=== PATIENT | female | born 1950 | race Caucasian/White ===

== ENCOUNTER 2016-03-28 09:10 | Inpatient (IN) | payer OTHER ==
[~2016-03-28] VITALS: Ht 152.4 cm; Wt 107.3 kg
[~2016-03-28 09:10] MED LIST: ANT25 PO; ASPEC81 PO; ATOR-24 PO; CHOL100010 PO; CLOP1TAB15 PO; FENO145T26 PO; INSUINJ SQ; INSUINJ14 SC; ISOS30TA3 PO; LISI40TA PO; METO100T14 PO; MOME6000 NAE; MULT-506 PO; OMEG10007 PO; SNG10 PO
[2016-03-28] MEDS ORDERED: SYN137 PO (09:33)
[2016-03-28] MEDS ORDERED: ONDANSETRON 8 MG/54 ML D5W IV STA (09:46)
[2016-03-28] MEDS ORDERED: SODIUM CHLORIDE 0.9% 1000ML 500 ML IV STA (09:46)
[2016-03-28] MEDS ORDERED: PROMETHAZINE HCL INJ 6.25 MG in SODIUM CHLORIDE 0.9% 50ML 50 ML IV STA (09:46)
[2016-03-28 09:56] LABS: BASO % 0.2 %; BASO ABS # 0.03 K/uL (0-0.2); COMPLETE YES; EOS % 2.5 %; HEMATOCRIT 43.2 % (37-47); IG% 0.3 %; LYMPH % 22.5 %; LYMPH ABS # 2.88 K/uL (1.2-3.4); MEAN CELL VOLUME 92.3 fL (80-100); MEAN CORPUSCULAR HEMOGLOBIN 31.2 pg (25-34); MEAN CORPUSCULAR HGB CONC 33.8 g/dl (32-36); MEAN PLATELET VOLUME 11.3 fL (7.4-10.4); MONO % 8.2 %; NEUT % 66.3 %; PLATELET COUNT 338 K/uL (130-400); RED BLOOD COUNT 4.68 M/uL (4.2-5.4); WHITE BLOOD COUNT 12.82 K/uL (4.8-10.8)
[2016-03-28] MEDS ORDERED: MoRPHine SULFATE 4 MG/ML 1 ML CARP\\VIAL IV PRN (10:00)
[2016-03-28 10:12] LABS: BUN/CREATININE RATIO 22.6 (10-20); CALCIUM 8.8 mg/dl (8.5-10.1); CREATININE 1.3 mg/dl (0.60-1.20); POTASSIUM 4.1 mmol/L (3.5-5.1)
[2016-03-28 10:15] LABS: ALB/GLOB RATIO 0.7 (0.9-2)
--- NOTE | 2016-03-28 10:31 | DIAGNOSTIC IMAGING REPORT ---
ABDOMEN AND PELVIS CT WITHOUT CONTRAST CT DOSE: 1640.91 mGy.cm HISTORY: Flank pain EVALUATE FLANK PAIN/HEMATURIA TECHNIQUE: Multiaxial CT images of the abdomen and pelvis were performed without the use of intravenous and oral contrast according to the standard department stone protocol. COMPARISON STUDY: None. FINDINGS: Lung bases are clear. Liver spleen and pancreas are unremarkable. Gallstones are present within the gallbladder lumen. Moderate cortical scarring is seen in the kidneys bilaterally. Several nonobstructing renal calcifications are noted. There is mild perinephric infiltrative change bilaterally although slightly more prominent on the right. There is no evidence for an obstructing urinary tract calculus. Uterus is anteflexed. Bowel pattern is nonobstructive. IMPRESSION: 1. Mild perinephric infiltrative change of the right and to lesser extent left kidney. 2. This may be unremarkable for age, although can't be a secondary indication of mild pyelonephritis. 3. No evidence for an obstructing urinary tract calculus. 4. Nonobstructive bowel pattern. 5. Gallstones within the gallbladder lumen. Electronically signed by: Joe Mendenhall M.D. 03/28/2016 10:30 AM Dictated Date/Time: 03/28/2016 10:27 AM
[2016-03-28] MEDS ORDERED: CEFTRIAXONE SOD INJ 1 GM ADDVIAL IV STA (10:37)
[2016-03-28 11:12] LABS: URINE APPEARANCE CLOUDY (CLEAR); URINE BILIRUBIN NEG (NEG); URINE EPITHELIAL CELL AUTO 0-5 /lpf (0-5); URINE NITRITE POS (NEG); URINE SPECIFIC GRAVITY 1.015 (1.000-1.030); UROBILINOGEN NEG (NEG); ZZURINE CULT IF INDIC CATH YES
[2016-03-28 11:14] LABS: MANUAL MICROSCOPIC REQUIRED? NO; REVIEW REQ? NO; URINE COLOR AMBER
[2016-03-28] MEDS ORDERED: ACETAMINOPHEN 325 MG TAB PO PRN (12:00)
[2016-03-28] MEDS ORDERED: ONDANSETRON INJ 2 MG/ML 2 ML VIAL IV PRN (12:00)
--- NOTE | 2016-03-28 12:26 | History and Physical ---
History & Physical Date & Time of Service: Mar 28, 2016 at 12:15 Chief Complaint: Sharp Pain In Lower Back, Vomiting, Blood In Urine Primary Care Physician: Claudette You PA-C History of Present Illness Source: patient, family, hospital records This patient is a pleasant 66-year-old female that presents emergency department today complaining of a fairly sudden onset of right flank pain radiating to the right side of her abdomen that started last night. She also had associated nausea and vomiting. The patient also started eating blood in the middle of the night. She apparently has had urinary frequency for the last 2 weeks. She denies any dysuria. She denies any fever or chills. No changes in bowel habits. The patient was first seen at her primary care physician's office. She was sent here for evaluation. She currently says that her nausea and pain are better since she received medication in the emergency department. Workup in the emergency department included blood work and a CT scan. She has noted leukocytosis with a white blood cell count of 12,000. She also has perinephric stranding right greater than left on the CT consistent with bilateral pyelonephritis. Urinalysis confirms a UTI. The patient does have a history of coronary artery disease and [place]. She does not have any complaints of chest pain, pressure, shortness of breath or heart palpitations. Past Medical/Surgical History Medical Problems: (1) Diab Enma Wo Compl, Type Ii Or Unspec Type, Not Uncntrld Status: Chronic (2) Hypertension Nos Status: Chronic (3) Old Myocardial Infarct Status: Chronic (4) Percutaneous Translum Coron Angioplasty Status Status: Resolved 2 stents placed (5) Pure Hypercholesterolem Status: Chronic Chronic kidney disease stage III Family History Diabetes mellitus FHx: cancer FHx: gallbladder disease FHx: heart disease Hypertension Kidney disease Kidney stones Seizures Social History Smoking Status: Never Smoker Alcohol Use: none Marital Status: Housing status: lives with family Occupational Status: retired Immunizations History of Influenza Vaccine: Yes Influenza Vaccine Date: Dec 20, 2010 History of Tetanus Vaccine?: UTD History of Pneumococcal: Yes History of Hepatitis B Vaccine: No Multi-Drug Resistant Organisms History of MDRO: No Allergies Coded Allergies: Oxycodone (Verified Allergy, Mild, ITCHING ON BACK, 03/28/16) Blood-Group Specific Substance (Verified Allergy, Unknown, NO BLOOD PRODUCTS, 03/28/16) Iodinated Contrast Media (Verified Allergy, Unknown, TEARS AND FACE BECAME VERY REDDENED, 03/28/16) Diltiazem (Verified Adverse Reaction, Unknown, PAIN IN NECK, 03/28/16) Home Medications Scheduled Aspirin Enteric Coated (Ecotrin Or Generic *), 81 MG PO DAILY Atorvastatin (Lipitor), 40 MG PO DAILY Cholecalciferol (Vitamin D), 2,000 INTER.UNIT PO DAILY Clopidogrel (Plavix), 75 MG PO DAILY Fenofibrate (Tricor ), 145 MG PO HS Fish Oil (Henriette-3), 1 CAP PO QID Insulin Aspart Penfill (Novolog Penfill), UNITS SC AC Insulin Nph (Humulin-N), 50 UNITS SQ HS Isosorbide Mononitrate Ext Rel (Imdur Ext Rel), 60 MG PO QAM Levothyroxine Sodium (Levothyroxine Sodium), 137 MCG PO QAM Lisinopril (Zestril), 40 MG PO DAILY Metoprolol Tartrate (Lopressor) (Lopressor), 100 MG PO BID Montelukast (Singulair *), 10 MG PO QAM Multivitamin (Multivitamin), 1 TABLET PO DAILY Review of Systems Patient notes that she was treated for bronchitis 2 weeks ago and she finished a course of Augmentin. Otherwise,10 system review performed and negative unless noted in HPI or below Physical Exam Vital Signs Date Time Temp Pulse Resp B/P Pulse Ox O2 Delivery O2 Flow Rate FiO2 03/28/16 10:32 106 18 181/74 94 Room Air 03/28/16 09:15 36.6 120 20 185/75 95 Room Air GENERAL: 66-year-old female, in moderate discomfort,, SKIN: The skin was warm and moist HEAD: Normocephalic atraumatic. EYES: Pupils equal round and reactive to light and accommodation. Conjunctivae without injection, sclerae without icterus. Extraocular movements intact. MOUTH: Mucous membranes fairly dry. No exudate was noted on the tongue. NECK: No JVD. HEART: Regular rhythm. Systolic murmur noted. Mildly tachycardic. LUNGS: Clear to auscultation bilaterally without wheezes, rales or rhonchi. No accessory muscle use. ABDOMEN: Positive bowel sounds x 4.Soft, mild tenderness to palpation noted in the right lower quadrant without any guarding or rebound tenderness. No organomegaly appreciated. Right CVA tenderness noted. EXTREMITIES: No erythema or edema noted in the lower extremities bilaterally. No tenderness to palpation. Normal gait. Strength 5/5 throughout. NEURO: Patient was alert and oriented to person place and time. Normal sensation to touch. No focal neurological deficits. Diagnostics Laboratory Results Results Past 24 Hours Test 03/28/16 09:30 03/28/16 10:55 03/28/16 11:55 Range/Units White Blood Count 12.82 4.8-10.8 K/uL Red Blood Count 4.68 4.2-5.4 M/uL Hemoglobin 14.6 12.0-16.0 g/dL Hematocrit 43.2 37-47 % Mean Corpuscular Volume 92.3 80-100 fL Mean Corpuscular Hemoglobin 31.2 25-34 pg Mean Corpuscular Hemoglobin Concent 33.8 32-36 g/dl Platelet Count 338 130-400 K/uL Mean Platelet Volume 11.3 7.4-10.4 fL Neutrophils (%) (Auto) 66.3 % Lymphocytes (%) (Auto) 22.5 % Monocytes (%) (Auto) 8.2 % Eosinophils (%) (Auto) 2.5 % Basophils (%) (Auto) 0.2 % Neutrophils # (Auto) 8.50 1.4-6.5 K/uL Lymphocytes # (Auto) 2.88 1.2-3.4 K/uL Monocytes # (Auto) 1.05 0.11-0.59 K/uL Eosinophils # (Auto) 0.32 0-0.5 K/uL Basophils # (Auto) 0.03 0-0.2 K/uL RDW Standard Deviation 43.9 36.4-46.3 fL RDW Coefficient of Variation 13.2 11.5-14.5 % Immature Granulocyte % (Auto) 0.3 % Immature Granulocyte # (Auto) 0.04 0.00-0.02 K/uL Sodium Level 137 136-145 mmol/L Potassium Level 4.1 3.5-5.1 mmol/L Chloride Level 103 98-107 mmol/L Carbon Dioxide Level 22 21-32 mmol/L Anion Gap 12.0 3-11 mmol/L Blood Urea Nitrogen 29 7-18 mg/dl Creatinine 1.30 0.60-1.20 mg/dl Est Creatinine Clear Calc Drug Dose 45.3 ml/min Estimated GFR () 48.8 Estimated GFR (Non- 42.1 BUN/Creatinine Ratio 22.6 10-20 Random Glucose 294 70-99 mg/dl Calcium Level 8.8 8.5-10.1 mg/dl Total Bilirubin 0.5 0.2-1 mg/dl Aspartate Amino Transf (AST/SGOT) 24 15-37 U/L Alanine Aminotransferase (ALT/SGPT) 23 12-78 U/L Alkaline Phosphatase 57 45-117 U/L Total Protein 7.7 6.4-8.2 gm/dl Albumin 3.2 3.4-5.0 gm/dl Globulin 4.5 2.5-4.0 gm/dl Albumin/Globulin Ratio 0.7 0.9-2 Urine Color FLORY Urine Appearance CLOUDY CLEAR Urine pH 6.0 4.5-7.5 Urine Specific [place] 1.015 1.000-1.030 Urine Protein 1+ NEG Urine Glucose (UA) 3+ NEG Urine Ketones NEG NEG Urine Occult Blood 3+ NEG Urine Nitrite POS NEG Urine Bilirubin NEG NEG Urine Urobilinogen NEG NEG Urine Leukocyte Esterase SMALL NEG Urine WBC (Auto) >30 0-5 /hpf Urine RBC (Auto) >30 0-4 /hpf Urine Hyaline Casts (Auto) 1-5 0-5 /lpf Urine Epithelial Cells (Auto) 0-5 0-5 /lpf Urine Bacteria (Auto) 4+ NEG Microbiology Results 03/28/16 Blood Culture, Yissel Batch Pending 03/28/16 Blood Culture, Yissel Batch Pending 03/28/16 Urine Culture, Received Pending Diagnostic Radiology ABDOMEN AND PELVIS CT WITHOUT CONTRAST CT DOSE: 1640.91 mGy.cm HISTORY: Flank pain EVALUATE FLANK PAIN/HEMATURIA TECHNIQUE: Multiaxial CT images of the abdomen and pelvis were performed without the use of intravenous and oral contrast according to the standard department stone protocol. COMPARISON STUDY: None. FINDINGS: Lung bases are clear. Liver spleen and pancreas are unremarkable. Gallstones are present within the gallbladder lumen. Moderate cortical scarring is seen in the kidneys bilaterally. Several nonobstructing renal calcifications are noted. There is mild perinephric infiltrative change bilaterally although slightly more prominent on the right. There is no evidence for an obstructing urinary tract calculus. Uterus is anteflexed. Bowel pattern is nonobstructive. IMPRESSION: 1. Mild perinephric infiltrative change of the right and to lesser extent left kidney. 2. This may be unremarkable for age, although can't be a secondary indication of mild pyelonephritis. 3. No evidence for an obstructing urinary tract calculus. 4. Nonobstructive bowel pattern. 5. Gallstones within the gallbladder lumen. Electronically signed by: Joe Mendenhall M.D. 03/28/2016 10:30 AM Dictated Date/Time: 03/28/2016 10:27 AM The status of this report is Signed. Draft = Not yet reviewed or approved by Radiologist. Signed = Reviewed and approved by Radiologist. <AttendingPhy></AttendingPhy> <FamilyPhy>Claudette You PA-C</FamilyPhy> < PrimaryPhy>Claudette You PA-C</PrimaryPhy> <UnitNumber>[id number]</ UnitNumber> <VisitNumber>[id number]</VisitNumber> <PatientName>TOAN ALCANTARA< /PatientName> <DateOfBirth>1950</DateOfBirth> <Location>[facility]</Location> < ServiceDate>03/28/16</ServiceDate> <MNE>ESINDI</MNE> <OrderingPhy>Bartolome Weiss M.D.</OrderingPhy Impression Assessment and Plan 66-year-old female with a past medical history as noted above presents emergency department with right flank pain, hematuria, UTI and pyelonephritis per CT scan. Patient is septic with tachycardia and an elevated white blood cell count Pyelonephritis -Admit to telemetry -Check blood cultures, urine culture -NS @ 100 cc/hr -Check lactic acid now and in 4 hours -Monitor renal function and CBC -Morphine 2 mg IV every 4 hours as needed for pain -Zofran 4 mg every 6 hours as needed for nausea History of coronary artery disease status post CABG and stenting-no anginal sx -check EKG -Monitor on telemetry given acute illness -Continue outpatient medical management: Lipitor, Plavix, TriCor, Imdur, lisinopril, Lopressor Chronic kidney disease stage III-creatinine appears to be at baseline -IV fluids as noted above and daily monitoring of PRP Hypertension -Medical management as noted above diabetes mellitus-BSG's are elevated today. No sign of DKA. I suspect that her blood sugars will improve with IV hydration and treatment of the infection. -follow BSGs AC, HS and with meals -Continue home dose of Humulin 50 units at night -insulin sliding scale DVT prophylaxis -Lovenox 30 mg subQ daily -TEDS, SCDs CODE STATUS -LEVEL I FULL CODE Level of Care Telemetry Resuscitation Status FULL RESUSCITATION VTE Prophylaxis VTE Risk Assessment Done? Y/N: Yes Risk Level: Moderate Given or contraindicated: Enoxaparin (Lovenox)SQ, T.E.D. Stockings, SCD's Reviewed: Pt Seen/Exam by Me, [facility] Notes, Prior Records, Labs, RAD, EKG History PA Supervision Note: I interviewed and examined the patient. Discussed with EMANI Ayers and agree with findings and plan as documented in the note. Any exceptions or clarifications are listed here: Pt with dysuria, urinary frequency and urgency x 2 days, right sided flank pain , N/V, and hematuria. Here with acute pyelonephritis and sepsis. CT abd/pel w/o contrast shows absence of stones but with bilat pyelo. Lactate elevated at 2.2 since admission. Having some recurrence of right flank pain now and is improving with morphine. HPI/ROS/PMH/PSH/MEDS/ALL otherwise as per PA H&P Vitals reviewed and no longer tachycardic after IVFs, afebrile AAOx3, NAD, morbidly obese anicteric sclerae, OP clear, obese neck CTAB no wcr RRR no mgr nl S1S2 Abd obese, +BS, soft, min +TTP RLQ and right flank without guarding or rebound Ext no edema, no calf tenderness A/P: 66 yo female with acute bilateral pyelonephritis, sepsis. -Add extra ceftriaxone 1 gram now and then 2 grams daily -repeat lactate after IVFs -follow Ur cx and BCxs -tightened up her SSI as she is on high doses of insulin at home 50 units tid usually -no signs of ischemia on ECG and no clinical chest pain, but with underlying disease in setting of sepsis need to watch for ACS -BPs improved after receiving pain meds, will continue home antihypertensives Proph Lovenox Dispo Full Code Mu-ism--> Advanced Directive on chart, no blood products Documented By: Bella Araujo
[2016-03-28 13:36] VITALS: BP 124/78; PULSE 95; TEMP 36.8; O2SAT 93
[2016-03-28 13:53] LABS: INR 1.1 (0.9-1.1); PARTIAL THROMBOPLASTIN RATIO 1.1; PROTHROMBIN TIME (PATIENT) 11.5 SECONDS (9.0-12.0)
[2016-03-28] MEDS ORDERED: GLUCAGON FOR INJ 1 MG VIAL SQ PRN (14:00)
[2016-03-28] MEDS ORDERED: GLUCOSE 10 TABS/TUBE PO PRN (14:00)
[2016-03-28] MEDS ORDERED: DEXTROSE 50% 50 ML SYR IV PRN (14:00)
[2016-03-28] MEDS ORDERED: GLUCOSE 40% GEL 15 GM TUBE PO PRN (14:00)
[2016-03-28 14:07] VITALS: BP 124/78; PULSE 95; TEMP 36.8; O2SAT 93; BMI 45.2
--- NOTE | 2016-03-28 14:14 | EMERGENCY ROOM VISIT NOTE ---
History Report prepared by Julianna: Rene Berumen Under the Supervision of: Dr. Bartolome Weiss M.D. First contact with patient: 09:44 Chief Complaint: URINARY SYMPTOMS Stated Complaint: SHARP PAIN IN LOWER BACK, VOMITING, BLOOD IN URINE Nursing Triage Summary: pt is stage 3 kidney disease on antibiotics 2 weeks ago for bronchitis last pm developed severe abd pain on both sides and back blood in urine actively vomiting at triage History of Present Illness The patient is a 66 year old female with a history of Stage III chronic kidney disease who presents to the Emergency Room with complaints of persistent urinary symptoms since last night. The patient noticed urinary frequency starting last night. She also started to experience hematuria and right flank pain last night. The pain is rated 10/10 in severity. The patient complains of nausea & vomiting this morning. She denies any fevers. The patient was asymptomatic the day before yesterday. She was eating and drinking okay yesterday. The patient has a history of Stage III chronic kidney disease. She says that her creatinine levels have been okay. The patient's BSG was 254 this morning. She did not take her medications yet this morning. The patient was treated for bronchitis with antibiotics two weeks ago. Source of History: patient Onset: last night Position: other (urinary ) Quality: other (urinary symptoms) Timing: other (persistent) Associated Symptoms: + back pain (right flank), + nausea, + urinary symptoms (frequency, hematuria), + vomiting, No fevers Review of Systems See HPI for pertinent positives & negatives. A total of 10 systems reviewed and were otherwise negative. Past Medical & Surgical Medical Problems: (1) Diab Enma Wo Compl, Type Ii Or Unspec Type, Not Uncntrld (2) Hypertension Nos (3) Old Myocardial Infarct (4) Percutaneous Translum Coron Angioplasty Status (5) Pure Hypercholesterolem (6) Pyelonephritis (7) Vertigo Family History Diabetes mellitus FHx: cancer FHx: gallbladder disease FHx: heart disease Hypertension Kidney disease Kidney stones Seizures Social History Smoking Status: Never Smoker Alcohol Use: none Marital Status: Occupation Status: retired Current/Historical Medications Scheduled Aspirin Enteric Coated (Ecotrin Or Generic *), 81 MG PO DAILY Atorvastatin (Lipitor), 40 MG PO DAILY Cholecalciferol (Vitamin D), 2,000 INTER.UNIT PO DAILY Clopidogrel (Plavix), 75 MG PO DAILY Fenofibrate (Tricor ), 145 MG PO HS Fish Oil ([place]-3), 1 CAP PO QID Insulin Aspart Penfill (Novolog Penfill), UNITS SC AC Insulin Nph (Humulin-N), 50 UNITS SQ HS Isosorbide Mononitrate Ext Rel (Imdur Ext Rel), 60 MG PO QAM Levothyroxine Sodium (Levothyroxine Sodium), 137 MCG PO QAM Lisinopril (Zestril), 40 MG PO DAILY Metoprolol Tartrate (Lopressor) (Lopressor), 100 MG PO BID Montelukast (Singulair *), 10 MG PO QAM Multivitamin (Multivitamin), 1 TABLET PO DAILY Allergies Coded Allergies: Oxycodone (Verified Allergy, Mild, ITCHING ON BACK, 03/28/16) Blood-Group Specific Substance (Verified Allergy, Unknown, NO BLOOD PRODUCTS, 03/28/16) Iodinated Contrast Media (Verified Allergy, Unknown, TEARS AND FACE BECAME VERY REDDENED, 03/28/16) Diltiazem (Verified Adverse Reaction, Unknown, PAIN IN NECK, 03/28/16) Physical Exam Vital Signs Date Time Temp Pulse Resp B/P Pulse Ox O2 Delivery O2 Flow Rate FiO2 03/28/16 12:56 37.3 108 20 145/62 94 Room Air 03/28/16 11:24 105 20 157/84 97 Room Air 03/28/16 10:32 106 18 181/74 94 Room Air 03/28/16 09:15 36.6 120 20 185/75 95 Room Air Physical Exam GENERAL: Patient is in significant distress and is actively vomiting. HEENT: No acute trauma, normocephalic atraumatic, mucous membranes moist, no nasal congestion, no scleral icterus. NECK: No stridor, no adenopathy, no meningismus, trachea is midline. LUNGS: Clear to auscultation bilaterally, no wheeze, no rhonchi, breath sounds equal. HEART: Tachycardic with a regular rhythm and no murmurs. ABDOMEN: Soft, nontender, bowel sounds positive, no hernias, no peritonitis. BACK: Right flank discomfort with percussion. EXTREMITIES: No cyanosis or edema, full range of motion of all the joints without pain or difficulty, no signs for acute trauma. NEUROLOGIC: Oriented x 3, no acute motor or sensory deficits, no focal weakness. SKIN: No rash, no jaundice, no diaphoresis. Medical Decision & Procedures ER Provider Diagnostic Interpretation: CT results as stated below per my review and radiologist interpretation: ABDOMEN AND PELVIS CT WITHOUT CONTRAST CT DOSE: 1640.91 mGy.cm HISTORY: Flank pain EVALUATE FLANK PAIN/HEMATURIA TECHNIQUE: Multiaxial CT images of the abdomen and pelvis were performed without the use of intravenous and oral contrast according to the standard department stone protocol. COMPARISON STUDY: None. FINDINGS: Lung bases are clear. Liver spleen and pancreas are unremarkable. Gallstones are present within the gallbladder lumen. Moderate cortical scarring is seen in the kidneys bilaterally. Several nonobstructing renal calcifications are noted. There is mild perinephric infiltrative change bilaterally although slightly more prominent on the right. There is no evidence for an obstructing urinary tract calculus. Uterus is anteflexed. Bowel pattern is nonobstructive. IMPRESSION: 1. Mild perinephric infiltrative change of the right and to lesser extent left kidney. 2. This may be unremarkable for age, although can't be a secondary indication of mild pyelonephritis. 3. No evidence for an obstructing urinary tract calculus. 4. Nonobstructive bowel pattern. 5. Gallstones within the gallbladder lumen. Electronically signed by: Joe Mendenhall M.D. 03/28/2016 10:30 AM Dictated Date/Time: 03/28/2016 10:27 AM Laboratory Results 03/28/16 09:30 Red Blood Count 4.68, Mean Corpuscular Volume 92.3, Mean Corpuscular Hemoglobin 31.2, Mean Corpuscular Hemoglobin Concent 33.8, Mean Platelet Volume 11.3, Neutrophils (%) (Auto) 66.3, Lymphocytes (%) (Auto) 22.5, Monocytes (%) (Auto) 8.2, Eosinophils (%) (Auto) 2.5, Basophils (%) (Auto) 0.2, Neutrophils # (Auto) 8.50, Lymphocytes # (Auto) 2.88, Monocytes # (Auto) 1.05, Eosinophils # (Auto) 0.32, Basophils # (Auto) 0.03 03/28/16 09:30 Test 03/28/16 09:30 03/28/16 10:55 White Blood Count 12.82 K/uL (4.8-10.8) Red Blood Count 4.68 M/uL (4.2-5.4) Hemoglobin 14.6 g/dL (12.0-16.0) Hematocrit 43.2 % (37-47) Mean Corpuscular Volume 92.3 fL (80-100) Mean Corpuscular Hemoglobin 31.2 pg (25-34) Mean Corpuscular Hemoglobin Concent 33.8 g/dl (32-36) Platelet Count 338 K/uL (130-400) Mean Platelet Volume 11.3 fL (7.4-10.4) Neutrophils (%) (Auto) 66.3 % Lymphocytes (%) (Auto) 22.5 % Monocytes (%) (Auto) 8.2 % Eosinophils (%) (Auto) 2.5 % Basophils (%) (Auto) 0.2 % Neutrophils # (Auto) 8.50 K/uL (1.4-6.5) Lymphocytes # (Auto) 2.88 K/uL (1.2-3.4) Monocytes # (Auto) 1.05 K/uL (0.11-0.59) Eosinophils # (Auto) 0.32 K/uL (0-0.5) Basophils # (Auto) 0.03 K/uL (0-0.2) RDW Standard Deviation 43.9 fL (36.4-46.3) RDW Coefficient of Variation 13.2 % (11.5-14.5) Immature Granulocyte % (Auto) 0.3 % Immature Granulocyte # (Auto) 0.04 K/uL (0.00-0.02) Prothrombin Time 11.5 SECONDS (9.0-12.0) Prothromb Time International Ratio 1.1 (0.9-1.1) Activated Partial Thromboplast Time 28.2 SECONDS (21.0-31.0) Partial Thromboplastin Ratio 1.1 Anion Gap 12.0 mmol/L (3-11) Est Creatinine Clear Calc Drug Dose 45.3 ml/min Estimated GFR () 48.8 Estimated GFR (Non- 42.1 BUN/Creatinine Ratio 22.6 (10-20) Calcium Level 8.8 mg/dl (8.5-10.1) Total Bilirubin 0.5 mg/dl (0.2-1) Aspartate Amino Transf (AST/SGOT) 24 U/L (15-37) Alanine Aminotransferase (ALT/SGPT) 23 U/L (12-78) Alkaline Phosphatase 57 U/L (45-117) Total Protein 7.7 gm/dl (6.4-8.2) Albumin 3.2 gm/dl (3.4-5.0) Globulin 4.5 gm/dl (2.5-4.0) Albumin/Globulin Ratio 0.7 (0.9-2) Urine Color FLORY Urine Appearance CLOUDY (CLEAR) Urine pH 6.0 (4.5-7.5) Urine Specific [place] 1.015 (1.000-1.030) Urine Protein 1+ (NEG) Urine Glucose (UA) 3+ (NEG) Urine Ketones NEG (NEG) Urine Occult Blood 3+ (NEG) Urine Nitrite POS (NEG) Urine Bilirubin NEG (NEG) Urine Urobilinogen NEG (NEG) Urine Leukocyte Esterase SMALL (NEG) Urine WBC (Auto) >30 /hpf (0-5) Urine RBC (Auto) >30 /hpf (0-4) Urine Hyaline Casts (Auto) 1-5 /lpf (0-5) Urine Epithelial Cells (Auto) 0-5 /lpf (0-5) Urine Bacteria (Auto) 4+ (NEG) Laboratory results reviewed by me. Medications Administered Medications (Trade) Dose Ordered Sig/Mario Route Start Time Stop Time Status Last Admin Dose Admin Sodium Chloride (Nss 1000ml) 500 ml @ 999 mls/hr Q31M STAT IV 03/28/16 09:46 03/28/16 10:16 DC 03/28/16 09:46 999 MLS/HR Ondansetron HCl (Zofran 8mg Iv) 8 mg NOW STAT IV 03/28/16 09:46 03/28/16 09:49 DC 03/28/16 09:54 8 MG Morphine Sulfate (MoRPHine SULFATE INJ) 4 mg Q15M PRN IV 03/28/16 10:00 03/28/16 13:41 DC 03/28/16 09:54 4 MG Ceftriaxone Sodium (Rocephin Inj) 1 gm NOW STAT IV 03/28/16 10:37 03/28/16 10:38 DC 03/28/16 11:24 1 GM Ondansetron HCl 4 mg 4 mg Q6H PRN IV 03/28/16 12:00 04/27/16 11:59 03/28/16 14:42 4 MG Sodium Chloride (Nss 1000ml) 1,000 ml @ 100 mls/hr Q10H IV 03/28/16 12:00 04/27/16 11:59 03/28/16 14:42 100 MLS/HR Morphine Sulfate (MoRPHine SULFATE INJ) 2 mg Q4 PRN IV 03/28/16 12:00 04/11/16 11:59 03/28/16 15:49 2 MG ED Course 0946: The patient was evaluated in room B8. A complete history and physical exam was performed. 0946: Zofran 8 mg IV, NSS 500 ml @ 999 mls/hr. 1000: Morphine Sulfate 4 mg IV. 1037: Rocephin 1 gm IV. 1100: Updated the patient. Medicine will be paged. 1108: Spoke with Dr. Araujo [facility]. The patient will be evaluated. Medical Decision Differential diagnosis includes pyelonephritis, AAA, renal colic, UTI, kidney failure, electrolyte imbalance, bowel obstruction, pancreatitis, hepatitis. There is a mild leukocytosis which could be consistent with infection. No worrisome anemia. No significant electrolyte abnormality, kidney failure or hepatitis. Urinalysis does show infection, urine culture is pending. Abdominal and pelvis CT shows evidence for pyelonephritis, more so on the right. No renal obstruction seen. There was no coagulopathy. The patient was aggressively managed, she was quite uncomfortable. She received IV Zofran, IV morphine and IV saline, she was given IV ceftriaxone. With the above treatment, the patient does feel markedly better. The patient has pyelonephritis. I do think admission/observation is warranted given her vomiting, given her severe pain and given the fact that both kidneys appear involved by CT. She does have known renal disease. I spoke to the patient and case management. The on-call hospitalist was consulted. Consults Time Called: 1100 Consulting Physician: Dr. [facility] Returned Call: [phone]: Spoke with Dr. Araujo [facility]. The patient will be evaluated. Impression Primary Impression: Pyelonephritis Additional Impressions: Right flank pain Vomiting Scribe Attestation The scribe's documentation has been prepared under my direction and personally reviewed by me in its entirety. I confirm that the note above accurately reflects all work, treatment, procedures, and medical decision making performed by me. Departure Information Dispostion Being Evaluated By Hospitalist Referrals No Doctor, Assigned (PCP) Patient Instructions My [facility] Problem Qualifiers
[2016-03-28] MEDS: SODIUM CHLORIDE 0.9% 1000ML 1,000 ML IV SCH ×2 (14:42→20:46)
[2016-03-28 15:00] VITALS: BP 138/78; PULSE 76; TEMP 36.7; O2SAT 97
[2016-03-28] MEDS ORDERED: INSULIN ASPART 100 UNITS/ML 3 ML PEN SC ONE (15:15)
[2016-03-28] MEDS: MoRPHine SULFATE 2 MG/ML CARP IV PRN ×2 (15:49→20:51)
[2016-03-28] MEDS ORDERED: CEFTRIAXONE SOD INJ 1 GM in DEXTROSE 5% ADD-VANTAGE 50ML 50 ML IV ONE (16:00)
[2016-03-28] MEDS: INSULIN ASPART 100 UNITS/ML 3 ML PEN SC SCH ×2 (17:49→20:44)
[2016-03-28 20:14] VITALS: BP 109/48; PULSE 89; TEMP 37.1; O2SAT 94
[2016-03-28] MEDS: INSULIN HUMAN NPH SQ SCH (20:43)
[2016-03-28] MEDS: FENOFIBRATE 145 MG TAB PO SCH (20:45)
[2016-03-28] MEDS: METOPROLOL TARTRATE 100 MG TAB PO SCH (20:45)
[2016-03-28] MEDS: ENOXAPARIN 30 MG/0.3 ML SYR SC SCH (20:52)
[2016-03-28 22:51] VITALS: BP 111/57; PULSE 81; TEMP 36.8; O2SAT 96
[2016-03-29] VITALS (8 sets, daily range): BP systolic 103–143; BP diastolic 58–86; PULSE 68–78; TEMP 36.4–36.9; O2SAT 95–99; Ht 152.4 cm; Wt 107.3 kg
[2016-03-29] MEDS: LEVOTHYROXINE 137 MCG TAB PO SCH (06:43)
[2016-03-29 07:31] LABS: BASO % 0.3 %; BASO ABS # 0.03 K/uL (0-0.2); COMPLETE YES; HEMATOCRIT 36.1 % (37-47); IG% 0.4 %; LYMPH % 17.1 %; LYMPH ABS # 1.78 K/uL (1.2-3.4); MEAN CELL VOLUME 93.8 fL (80-100); MEAN CORPUSCULAR HEMOGLOBIN 30.6 pg (25-34); MEAN CORPUSCULAR HGB CONC 32.7 g/dl (32-36); NEUT % 66.2 %; PLATELET COUNT 248 K/uL (130-400); RED BLOOD COUNT 3.85 M/uL (4.2-5.4); WHITE BLOOD COUNT 10.43 K/uL (4.8-10.8)
[2016-03-29 07:59] LABS: BUN/CREATININE RATIO 22.4 (10-20); CALCIUM 7.9 mg/dl (8.5-10.1); CREATININE 1.5 mg/dl (0.60-1.20); MAGNESIUM 1.7 mg/dl (1.8-2.4); POTASSIUM 4.4 mmol/L (3.5-5.1)
[2016-03-29] MEDS: CLOPIDOGREL BISULFATE 75 MG TAB PO SCH (08:14)
[2016-03-29] MEDS: MONTELUKAST SOD 10 MG TAB PO SCH (08:14)
[2016-03-29] MEDS: LISINOPRIL 40 MG TAB PO SCH (08:14)
[2016-03-29] MEDS: ISOSORBIDE MONONITRATE 60 MG TABCR PO SCH (08:14)
[2016-03-29] MEDS: ATORVASTATIN 40 MG TAB PO SCH (08:15)
[2016-03-29] MEDS: METOPROLOL TARTRATE 100 MG TAB PO SCH ×2 (08:15→20:56)
[2016-03-29] MEDS: ASPIRIN 81 MG ECTAB PO SCH (08:16)
[2016-03-29] MEDS: CEFTRIAXONE SOD INJ 2,000 MG in DEXTROSE 5% 50ML 50 ML IV SCH (08:26)
[2016-03-29] MEDS: SODIUM CHLORIDE 0.9% 1000ML 1,000 ML IV SCH ×2 (08:27→17:58)
[2016-03-29] MEDS: INSULIN ASPART 100 UNITS/ML 3 ML PEN SC SCH ×4 (08:32→21:02)
[2016-03-29] MEDS: MAGNESIUM SULFATE 1GM / D5W 1 GM in PREMIXED IN D5W 100 ML IV SCH ×2 (11:20→12:28)
--- NOTE | 2016-03-29 13:59 | Progress Note ---
Subjective Date of Service: Mar 29, 2016. Subjective Pt evaluation today including: conversation w/ patient, conversation w/ family , physical exam, chart review, lab review feeling better back pain gone no nausea/vomiting - was able to eat well today no fevers, some chills last night, none today some hematuria Problem List Medical Problems: (1) Hyperglycemia Status: Acute (2) Right flank pain Status: Acute (3) Vomiting Status: Acute Review of Systems Constitutional: + chills, + see HPI, No fever, No sweats Abdomen: No nausea, No pain, No vomiting Female : + hematuria, No see HPI ros otherwise negative except for as above Objective Vital Signs Date Time Temp Pulse Resp B/P Pulse Ox O2 Delivery O2 Flow Rate FiO2 03/29/16 11:54 36.4 68 16 136/79 95 Room Air 03/29/16 08:30 77 109/64 03/29/16 07:26 36.7 78 16 113/66 99 Room Air 03/29/16 04:26 36.9 77 18 103/58 95 Room Air 03/29/16 04:00 Room Air 03/29/16 00:00 Room Air 03/28/16 22:51 36.8 81 20 111/57 96 Room Air 03/28/16 20:14 37.1 89 18 109/48 94 Room Air 03/28/16 20:00 Room Air 03/28/16 15:00 36.7 76 20 138/78 97 Room Air 03/28/16 14:07 36.8 95 18 124/78 93 Room Air Physical Exam General Appearance: no apparent distress Eyes: EOMI ENT: hearing grossly normal Neck: trachea midline Respiratory/Chest: no respiratory distress, no accessory muscle use Abdomen: non tender (no CVA tenderness), soft Extremities: normal range of motion 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, alert, normal mood/affect Skin: normal color, warm/dry Laboratory Results Last 24 Hours Test 03/28/16 14:06 03/28/16 15:58 03/28/16 16:05 03/28/16 20:28 Lactic Acid Level 2.2 mmol/L 1.9 mmol/L Bedside Glucose 263 mg/dl 249 mg/dl Test 03/29/16 06:50 03/29/16 07:38 03/29/16 11:33 White Blood Count 10.43 K/uL Red Blood Count 3.85 M/uL Hemoglobin 11.8 g/dL Hematocrit 36.1 % Mean Corpuscular Volume 93.8 fL Mean Corpuscular Hemoglobin 30.6 pg Mean Corpuscular Hemoglobin Concent 32.7 g/dl Platelet Count 248 K/uL Mean Platelet Volume 11.0 fL Neutrophils (%) (Auto) 66.2 % Lymphocytes (%) (Auto) 17.1 % Monocytes (%) (Auto) 12.0 % Eosinophils (%) (Auto) 4.0 % Basophils (%) (Auto) 0.3 % Neutrophils # (Auto) 6.91 K/uL Lymphocytes # (Auto) 1.78 K/uL Monocytes # (Auto) 1.25 K/uL Eosinophils # (Auto) 0.42 K/uL Basophils # (Auto) 0.03 K/uL RDW Standard Deviation 45.4 fL RDW Coefficient of Variation 13.3 % Immature Granulocyte % (Auto) 0.4 % Immature Granulocyte # (Auto) 0.04 K/uL Sodium Level 142 mmol/L Potassium Level 4.4 mmol/L Chloride Level 105 mmol/L Carbon Dioxide Level 29 mmol/L Anion Gap 8.0 mmol/L Blood Urea Nitrogen 34 mg/dl Creatinine 1.50 mg/dl Est Creatinine Clear Calc Drug Dose 39.3 ml/min Estimated GFR () 41.1 Estimated GFR (Non- 35.4 BUN/Creatinine Ratio 22.4 Random Glucose 111 mg/dl Calcium Level 7.9 mg/dl Magnesium Level 1.7 mg/dl Bedside Glucose 99 mg/dl 178 mg/dl Assessment and Plan Pyelonephritis w sepsis on admission -improving -await further growth on blood cultures (pyelo + chills- worrisome, will follow to ensure no bacteremia) -urine culture growing E Coli - can hopefully change to PO abx once sensitivities are back (and depending on blood cultures) -NS @ 100 cc/hr History of coronary artery disease status post CABG and stenting-no anginal sx -stable, continue home meds Chronic kidney disease stage III-creatinine appears to be at baseline -IV fluids as noted above and daily monitoring of PRP Hypertension -Medical management diabetes mellitus- -sugars somewhat variable but improving DVT prophylaxis -Lovenox 30 mg subQ daily -TEDS, SCDs CODE STATUS -LEVEL I FULL CODE
[2016-03-29] MEDS: ENOXAPARIN 30 MG/0.3 ML SYR SC SCH (20:54)
[2016-03-29] MEDS: FENOFIBRATE 145 MG TAB PO SCH (20:55)
[2016-03-29] MEDS: INSULIN HUMAN NPH SQ SCH (21:03)
[2016-03-30 00:07] VITALS: BP 124/66; PULSE 87; TEMP 36.7; O2SAT 94
[2016-03-30] MEDS: SODIUM CHLORIDE 0.9% 1000ML 1,000 ML IV SCH (03:58)
[2016-03-30 04:52] VITALS: BP 125/76; PULSE 74; TEMP 37.2; O2SAT 94
[2016-03-30] MEDS: LEVOTHYROXINE 137 MCG TAB PO SCH (05:13)
[2016-03-30 07:40] VITALS: BP 120/68; PULSE 73; TEMP 36.6; O2SAT 95
[2016-03-30 07:48] LABS: BASO % 0.4 %; BASO ABS # 0.03 K/uL (0-0.2); COMPLETE YES; EOS % 6.2 %; HEMATOCRIT 38.7 % (37-47); IG% 0.5 %; LYMPH % 19.3 %; LYMPH ABS # 1.61 K/uL (1.2-3.4); MEAN CELL VOLUME 94.4 fL (80-100); MEAN CORPUSCULAR HEMOGLOBIN 30.5 pg (25-34); MEAN CORPUSCULAR HGB CONC 32.3 g/dl (32-36); MEAN PLATELET VOLUME 11.2 fL (7.4-10.4); MONO % 12.6 %; PLATELET COUNT 284 K/uL (130-400); WHITE BLOOD COUNT 8.36 K/uL (4.8-10.8)
[2016-03-30 08:13] LABS: BUN/CREATININE RATIO 25.5 (10-20); CALCIUM 8.5 mg/dl (8.5-10.1); CREATININE 1.3 mg/dl (0.60-1.20); MAGNESIUM 2.4 mg/dl (1.8-2.4); POTASSIUM 4.9 mmol/L (3.5-5.1)
[2016-03-30] MEDS: INSULIN ASPART 100 UNITS/ML 3 ML PEN SC SCH (09:03)
[2016-03-30] MEDS: ASPIRIN 81 MG ECTAB PO SCH (09:04)
[2016-03-30] MEDS: ISOSORBIDE MONONITRATE 60 MG TABCR PO SCH (09:04)
[2016-03-30] MEDS: ATORVASTATIN 40 MG TAB PO SCH (09:04)
[2016-03-30] MEDS: CLOPIDOGREL BISULFATE 75 MG TAB PO SCH (09:04)
[2016-03-30] MEDS: MONTELUKAST SOD 10 MG TAB PO SCH (09:04)
[2016-03-30] MEDS: LISINOPRIL 40 MG TAB PO SCH (09:04)
[2016-03-30] MEDS: METOPROLOL TARTRATE 100 MG TAB PO SCH (09:04)
[2016-03-30] MEDS: CEFTRIAXONE SOD INJ 2,000 MG in DEXTROSE 5% 50ML 50 ML IV SCH (09:15)
[2016-03-30] MEDS ORDERED: CEFU1TAB36 PO (11:01)
--- NOTE | 2016-03-30 11:06 | Discharge Instructions ---
Discharge Instructions Admission Reason for Admission: Pyelonephritis Discharge Discharge Diagnosis / Problem: pyelonephritis (kidney infection) Discharge Goals Goal(s): Diagnostic testing, Therapeutic intervention Activity Recommendations Activity Limitations: resume your previous activity . Instructions / Follow-Up Instructions / Follow-Up pyelonephritis (kidney infection) -these kinds of infection can come on suddenly, as yours did, and up to 20% of people with kidney infections don't have much as far as urinary symptoms. fortunately you got better really quickly with antibiotics; and the bacteria growing on culture is sensitive to not only the antibiotic you were on, but multiple oral antibiotics. we'll finish treatment with cefuroxime (500mg twice a day for 10 days - next dose tonight - 03/30/16 - prescription was sent electronically to [facility] in [place]) -it might take a month or so to totally feel "good as new" - kidney infections can definitely take a while to recover from, and while the pain and urinary symptoms clear quickly, it's not at all uncommon for people to feel just a general fatigue and lethargy that can take several weeks to go away -follow up at [facility] as already scheduled Current Hospital Diet Patient's current hospital diet: Diabetes Type 2 Diet, AHA Diet (Heart Healthy) Discharge Diet Recommended Diet: AHA Diet (Heart Healthy), Diabetes Type 2 Diet Pending Studies Studies pending at discharge: no List of pending studies: your blood cultures will be in the lab for five days, but it's highly unlikely that they'll show any growth. if they surprise us with any unexpected findings, we'll call right away. the vast majority of the time, however, when someone has negative cultures at this point, there's no further growth Laboratory Results Hemoglobin A1c Test 02/10/16 06:35 Range/Units Estimated Average Glucose 169 mg/dl Hemoglobin A1c 7.5 H 4.5-5.6 % Lipid Panel Test 02/10/16 06:35 Range/Units Triglycerides Level 313 H 0-150 mg/dl Cholesterol Level 146 0-200 mg/dl HDL Cholesterol 35 mg/dl Cholesterol/HDL Ratio 4.2 LDL Cholesterol, Calculated 48 mg/dl Medical Emergencies . Who to Call and When: Medical Emergencies: If at any time you feel your situation is an emergency, please call 911 immediately. . Non-Emergent Contact Non-Emergency issues call your: Primary Care Provider . . "Provider Documentation" section prepared by Rony Chen. VTE Core Measure Inpt VTE Proph given/why not?: Enoxaparin (Lovenox)GEMA, Deng. Olivier, SCD's
[2016-03-30 11:17] VITALS: BP 120/73; PULSE 87; TEMP 36.6; O2SAT 94
[2016-03-30 11:37] VITALS: BP 120/73; PULSE 81; TEMP 36.6; O2SAT 96
--- NOTE | 2016-03-30 20:19 | Discharge Summary ---
Discharge Summary Admission Date: Mar 28, 2016 at 13:25 Discharge Date: Mar 30, 2016 Principal Diagnosis: pyelonephritis Immunizations: Have You Had Influenza Vaccine: Yes Influenza Vaccine Date: Dec 20, 2010 History of Tetanus Vaccine?: UTD History of Pneumococcal: Yes History of Hepatitis B Vaccine: No Procedures: ABDOMEN AND PELVIS CT WITHOUT CONTRAST CT DOSE: 1640.91 mGy.cm HISTORY: Flank pain EVALUATE FLANK PAIN/HEMATURIA TECHNIQUE: Multiaxial CT images of the abdomen and pelvis were performed without the use of intravenous and oral contrast according to the standard department stone protocol. COMPARISON STUDY: None. FINDINGS: Lung bases are clear. Liver spleen and pancreas are unremarkable. Gallstones are present within the gallbladder lumen. Moderate cortical scarring is seen in the kidneys bilaterally. Several nonobstructing renal calcifications are noted. There is mild perinephric infiltrative change bilaterally although slightly more prominent on the right. There is no evidence for an obstructing urinary tract calculus. Uterus is anteflexed. Bowel pattern is nonobstructive. IMPRESSION: 1. Mild perinephric infiltrative change of the right and to lesser extent left kidney. 2. This may be unremarkable for age, although can't be a secondary indication of mild pyelonephritis. 3. No evidence for an obstructing urinary tract calculus. 4. Nonobstructive bowel pattern. 5. Gallstones within the gallbladder lumen. Electronically signed by: Joe Mendenhall M.D. 03/28/2016 10:30 AM Dictated Date/Time: 03/28/2016 10:27 AM Date/Time Source Procedure Growth Status 03/28/16 14:10 Blood Blood Culture - Preliminary NO GROWTH TO DATE. Resulted 03/28/16 10:55 Urine,Catheterized Urine Culture - Final Escherichia Coli Complete E coli sensitive to cephalosporins Medication Reconciliation New Medications: Cefuroxime Axetil (Cefuroxime Axetil) 500 Mg Tab 1 TAB PO BID for 10 Days, #20 TAB Continued Medications: Aspirin Enteric Coated (Ecotrin Or Generic *) 81 Mg Ectab 81 MG PO DAILY Atorvastatin (Lipitor) 40 Mg Tab 40 MG PO DAILY, TAB Cholecalciferol (Vitamin D) 1,000 Inter.unit Tab 2000 INTER.UNIT PO DAILY, TAB Clopidogrel (Plavix) 75 Mg Tab 75 MG PO DAILY, 0 Refills Fenofibrate (Tricor ) 145 Mg Tab 145 MG PO HS, TAB Fish Oil ([place]-3) 1 Ea Cap 1 CAP PO QID, 0 Refills 1200 MG Insulin Aspart Penfill (Novolog Penfill) Inj UNITS SC AC, BTL PER SLIDING SCALE, UP TO 150 UNITS PER DAY. Insulin Nph (Humulin-N) Susp 50 UNITS SQ HS, VIAL Isosorbide Mononitrate Ext Rel (Imdur Ext Rel) 30 Mg Ertab 60 MG PO QAM, 0 Refills Levothyroxine Sodium (Levothyroxine Sodium) 137 Mcg Tab 137 MCG PO QAM Lisinopril (Zestril) 40 Mg Tab 40 MG PO DAILY, TAB Metoprolol Tartrate (Lopressor) (Lopressor) 100 Mg Tab 100 MG PO BID, 0 Refills Montelukast (Singulair *) 10 Mg Tab 10 MG PO QAM, 0 Refills Multivitamin (Multivitamin) Tab 1 TABLET PO DAILY, 0 Refills Discharge Exam Physical Exam: General Appearance: no apparent distress Eyes: EOMI ENT: hearing grossly normal Neck: trachea midline Respiratory/Chest: no respiratory distress, no accessory muscle use Extremities: normal inspection 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, alert, normal mood/affect Hospital Course Pyelonephritis w sepsis on admission -improving -blood cultures negative so far, and anticipate ongoing negative - d/w pt and will dc home -- if surprised by growth will call to arrange further care -PO abx as above History of coronary artery disease status post CABG and stenting-no anginal sx -stable, continue home meds Chronic kidney disease stage III-creatinine appears to be at baseline Hypertension -Medical management diabetes mellitus- -sugars somewhat variable - outpt f/u DVT prophylaxis -Lovenox 30 mg subQ daily utilized during stay stable for discharge to home Total Time Spent: Less than 30 minutes This includes examination of the patient, discharge planning, medication reconciliation, and communication with other providers. Discharge Instructions Please refer to the electronic Patient Visit Report (Discharge Instructions) for additional information.
[2016-05-20] MEDS ORDERED: INSHNI SC (14:50)
[2016-05-20] MEDS ORDERED: CMD5 PO (14:50)
[2016-05-20] MEDS ORDERED: ENOX120I SQ (14:53)
== END 2016-03-30 11:45 | disposition home or self-care (01) | DRG 872 ==
LOC: ENRESERVTM → ENRESERVDT → C.EDB 09:13 → C.MED 13:25
PROVIDERS: ADMIT Family Medicine; ATTEND Family Medicine
DX: A41.9 Sepsis, unspecified organism (principal); N10 Acute pyelonephritis; N18.3 Chronic kidney disease, stage 3 (moderate); E11.65 Type 2 diabetes mellitus with hyperglycemia; I12.9 Hypertensive chronic kidney disease with stage 1 through stage 4 chronic kidney disease, or unspecified chronic kidney disease; E11.21 Type 2 diabetes mellitus with diabetic nephropathy; I25.2 Old myocardial infarction; E78.00 Pure hypercholesterolemia, unspecified; Z79.82 Long term (current) use of aspirin; I25.10 Atherosclerotic heart disease of native coronary artery without angina pectoris; Z83.3 Family history of diabetes mellitus; Z95.5 Presence of coronary angioplasty implant and graft; Z95.1 Presence of aortocoronary bypass graft

== ENCOUNTER 2016-05-18 08:04 | Inpatient (IN) | payer OTHER ==
[~2016-05-18] VITALS: Ht 152.4 cm; Wt 105.4 kg
[~2016-05-18 08:04] MED LIST changes: -ANT25 PO; -MOME6000 NAE; +SYN137 PO
[2016-05-18] MEDS ORDERED: METOPROLOL TARTRATE 1 MG/ML VIAL IV STA ×3 (08:25→09:50)
--- NOTE | 2016-05-18 08:32 | EMERGENCY ROOM VISIT NOTE ---
History Report prepared by Julianna: Martha Tovar Under the Supervision of: Dr. April Martin D.O. First contact with patient: 08:12 Chief Complaint: CARDIAC ASSESSMENT Stated Complaint: PALIPTATIONS History of Present Illness The patient is a 66 year old female who presents to the Emergency Room with complaints of persistent dizziness that began about 3 hours ago. Her symptoms began when she woke up and walked to the bathroom. She also felt her heart beating fast and had some shortness of breath. She has not felt similar symptoms in the past. She had vertigo in the past but her dizziness today did not feel like vertigo. The patient reports that she has been trying to keep hydrated although she did not drink any water this morning. Past medical history includes DE, hypertension, high cholesterol, and insulin dependent diabetes. She had a CABG and 2 stents placed in 2004. She has been told that she has an irregular heart rhythm, most recently when she was admitted in March 2016 for a kidney infection. She follows with Dr. Rudolph [facility] and had her cholesterol mediation increased during her most recent appointment. There is a family history of diabetes and heart disease. Her brothers had heart attacks at young ages. Denies chest pain, nausea, sweating, or other complaints. She has not taken any of her medications this morning. She is on Plavix. Source of History: patient Onset: 3 hours ago Position: other (global) Quality: other (dizzy) Timing: other (persistent) Associated Symptoms: + SOB, No chest pain, No nausea Note: Other symptoms: racing heart rate Review of Systems See HPI for pertinent positives & negatives. A total of 10 systems reviewed and were otherwise negative. Past Medical & Surgical Medical Problems: (1) Diab Enma Wo Compl, Type Ii Or Unspec Type, Not Uncntrld (2) Hypertension Nos (3) Old Myocardial Infarct (4) Percutaneous Translum Coron Angioplasty Status (5) Pure Hypercholesterolem (6) Pyelonephritis (7) Tachycardia (8) Vertigo Family History Diabetes mellitus FHx: cancer FHx: gallbladder disease FHx: heart disease Hypertension Kidney disease Kidney stones Seizures Social History Smoking Status: Never Smoker Alcohol Use: none Marital Status: Occupation Status: retired Current/Historical Medications Scheduled Aspirin (Aspirin Ec), 81 MG PO DAILY Atorvastatin (Lipitor), 40 MG PO DAILY Chlorthalidone (Hygroton), 25 MG PO DAILY Cholecalciferol (Vitamin D3), 2,000 UNITS PO DAILY Clopidogrel (Plavix), 75 MG PO DAILY Fenofibrate (Tricor), 160 MG PO DAILY Fish Oil ([place]-3), 1,200 MG PO DAILY Insulin Human NPH (Humulin N), 55 UNITS SC HS Insulin Lispro (Human) (Humalog), 1 DOSE SC DIRECTED Isosorbide Mononitrate Ext Rel (Imdur Ext Rel), 60 MG PO QAM Levothyroxine Sodium (Levothyroxine Sodium), 137 MCG PO QAM Lisinopril (Zestril), 40 MG PO DAILY Metoprolol Tartrate (Lopressor) (Lopressor), 100 MG PO BID Montelukast Sodium (Montelukast Sodium), 10 MG PO DAILY Multivitamin (Multivitamin), 1 TABLET PO DAILY Allergies Coded Allergies: Oxycodone (Verified Allergy, Mild, ITCHING ON BACK, 03/28/16) Blood-Group Specific Substance (Verified Allergy, Unknown, NO BLOOD PRODUCTS, 03/28/16) Iodinated Contrast Media (Verified Allergy, Unknown, TEARS AND FACE BECAME VERY REDDENED, 03/28/16) Diltiazem (Verified Adverse Reaction, Unknown, PAIN IN NECK, 03/28/16) Physical Exam Vital Signs Date Time Temp Pulse Resp B/P Pulse Ox O2 Delivery O2 Flow Rate FiO2 05/18/16 12:32 123 16 133/85 94 Room Air 05/18/16 10:08 122 18 129/64 97 Room Air 05/18/16 10:07 123 129/64 05/18/16 09:32 137 138/81 05/18/16 09:17 123 129/106 05/18/16 09:00 103 05/18/16 08:40 127 18 153/85 95 Room Air 05/18/16 08:40 132 153/85 05/18/16 08:23 95 Room Air 05/18/16 08:13 37.0 139 20 158/103 97 Room Air Physical Exam GENERAL: The patient is a pleasant 66 year old female in no acute distress. VITALS: Afebrile, tachycardic, hypertensive, normal pulse oximetry on room air. THROAT: No pharyngeal injection, exudates, or tonsillar hypertrophy. Airway is patent. NECK: Supple, nontender, no lymphadenopathy or nuchal rigidity. THORAX : Symmetrical and nontender to palpation without deformity or palpable crepitus. LUNGS : Clear without wheezing, rhonchi, or rales HEART: Tachycardic rate and irregular rhythm ABDOMEN: obese, Soft and nontender without guarding, rigidity, or rebound tenderness. Bowel sounds are present in all 4 quadrants. There are no palpable masses or organomegaly. No CVA tenderness. Femoral pulses are symmetrical EXTREMITIES : Without deformity or point tenderness. There are no palpable cords, edema, or erythema.. NEUROLOGIC: Intact without focal deficits Skin: intact without rash Medical Decision & Procedures ER Provider Diagnostic Interpretation: Radiology results as stated below per my review and radiologist interpretation: CHEST ONE VIEW PORTABLE CLINICAL HISTORY: Shortness of breath. Tachycardia. COMPARISON STUDY: Chest radiograph April 18, 2012. FINDINGS: There are median sternotomy wires. Cardiac size is normal. There is pulmonary vascular congestion without overt pulmonary edema. No pneumothorax or pleural effusion is present. No consolidation is identified. IMPRESSION: Pulmonary vascular congestion without overt pulmonary edema. Electronically signed by: Chava Del Valle M.D. 05/18/2016 8:45 AM Dictated Date/Time: 05/18/2016 8:43 AM Laboratory Results 05/18/16 08:16 Red Blood Count 4.98, Mean Corpuscular Volume 91.6, Mean Corpuscular Hemoglobin 30.3, Mean Corpuscular Hemoglobin Concent 33.1, Mean Platelet Volume 11.3, Neutrophils (%) (Auto) 64.3, Lymphocytes (%) (Auto) 24.1, Monocytes (%) (Auto) 7.4, Eosinophils (%) (Auto) 3.4, Basophils (%) (Auto) 0.5, Neutrophils # (Auto) 5.70, Lymphocytes # (Auto) 2.14, Monocytes # (Auto) 0.66, Eosinophils # (Auto) 0.30, Basophils # (Auto) 0.04 05/18/16 08:16 Test 05/18/16 08:16 05/18/16 08:30 White Blood Count 8.87 K/uL (4.8-10.8) Red Blood Count 4.98 M/uL (4.2-5.4) Hemoglobin 15.1 g/dL (12.0-16.0) Hematocrit 45.6 % (37-47) Mean Corpuscular Volume 91.6 fL (80-100) Mean Corpuscular Hemoglobin 30.3 pg (25-34) Mean Corpuscular Hemoglobin Concent 33.1 g/dl (32-36) Platelet Count 254 K/uL (130-400) Mean Platelet Volume 11.3 fL (7.4-10.4) Neutrophils (%) (Auto) 64.3 % Lymphocytes (%) (Auto) 24.1 % Monocytes (%) (Auto) 7.4 % Eosinophils (%) (Auto) 3.4 % Basophils (%) (Auto) 0.5 % Neutrophils # (Auto) 5.70 K/uL (1.4-6.5) Lymphocytes # (Auto) 2.14 K/uL (1.2-3.4) Monocytes # (Auto) 0.66 K/uL (0.11-0.59) Eosinophils # (Auto) 0.30 K/uL (0-0.5) Basophils # (Auto) 0.04 K/uL (0-0.2) RDW Standard Deviation 44.9 fL (36.4-46.3) RDW Coefficient of Variation 13.7 % (11.5-14.5) Immature Granulocyte % (Auto) 0.3 % Immature Granulocyte # (Auto) 0.03 K/uL (0.00-0.02) Prothrombin Time 11.4 SECONDS (9.0-12.0) Prothromb Time International Ratio 1.1 (0.9-1.1) Activated Partial Thromboplast Time 27.5 SECONDS (21.0-31.0) Partial Thromboplastin Ratio 1.1 Anion Gap 8.0 mmol/L (3-11) Est Creatinine Clear Calc Drug Dose 41.6 ml/min Estimated GFR () 44.6 Estimated GFR (Non- 38.5 BUN/Creatinine Ratio 31.4 (10-20) Calcium Level 9.1 mg/dl (8.5-10.1) Magnesium Level 1.8 mg/dl (1.8-2.4) Total Creatine Kinase 68 U/L (26-192) Creatine Kinase MB 1.5 ng/ml (0.5-3.6) Creatine Kinase MB Ratio 2.2 (0-3.0) Thyroid Stimulating Hormone (TSH) 2.860 uIu/ml (0.300-4.500) Bedside Troponin I 0.000 ng/ml (0-0.045) Laboratory studies as stated above per my review. Medications Administered Medications (Trade) Dose Ordered Sig/Mario Route Start Time Stop Time Status Last Admin Dose Admin Metoprolol Tartrate (Lopressor Iv) 5 mg NOW STAT IV 05/18/16 08:25 05/18/16 08:28 DC 05/18/16 08:40 5 MG Furosemide (Lasix Inj) 40 mg NOW STAT IV 05/18/16 08:50 05/18/16 08:54 DC 05/18/16 09:18 40 MG Clopidogrel Bisulfate (plAVix TAB) 75 mg NOW ONCE PO 05/18/16 09:00 05/18/16 09:01 DC 05/18/16 09:18 75 MG Aspirin (Aspirin Chew) 81 mg NOW STAT PO 05/18/16 08:50 05/18/16 08:54 DC 05/18/16 09:18 81 MG Isosorbide Mononitrate (Imdur Ext Rel Tab) 60 mg NOW ONCE PO 05/18/16 09:00 05/18/16 09:01 DC 05/18/16 09:18 60 MG Metoprolol Tartrate (Lopressor Iv) 5 mg NOW STAT IV 05/18/16 08:57 05/18/16 08:59 DC 05/18/16 09:17 5 MG Metoprolol Tartrate (Lopressor Iv) 5 mg NOW STAT IV 05/18/16 09:50 05/18/16 09:56 DC 05/18/16 10:07 5 MG Insulin Human Regular (novoLIN-R U-100 PER UNIT) 40 units NOW STAT SC 05/18/16 09:50 05/18/16 09:56 DC 05/18/16 11:32 40 UNITS Insulin Human NPH (novoLIN-N U-100 NPH PER UNIT) 20 units TODAY@1115 SQ 05/18/16 11:15 05/18/16 11:16 DC 05/18/16 11:30 20 UNITS Heparin Sodium/ Dextrose 1 ea 1 ea Q15M N/A 05/18/16 12:00 05/18/16 15:33 DC 05/18/16 12:28 1 EA Amiodarone HCL/ Dextrose 100 ml @ 600 mls/hr 1200 IV 05/18/16 12:00 05/18/16 12:09 DC 05/18/16 12:29 600 MLS/HR Amiodarone HCL/ Dextrose (Nexterone / D5w) 200 ml @ 33.3 mls/hr Q6H1M IV 05/18/16 12:10 05/18/16 18:09 05/18/16 12:53 33.3 MLS/HR Heparin Sodium/ Dextrose (Heparin 25,000 Unit/500ml D5W) 25,000 unit STK-MED ONCE .ROUTE 05/18/16 12:27 05/18/16 12:28 DC 05/18/16 12:26 25,000 UNIT Heparin Sodium (Porcine) (Heparin Sq 5000 Unit/0.5ml) 5,000 unit STK-MED ONCE .ROUTE 05/18/16 12:27 05/18/16 12:28 DC 05/18/16 12:28 5,000 UNIT ECG Indication: other (dizzy ) Rate (beats per minute): 135 Rhythm: sinus tachycardia Findings: LAFB, PVC, RBBB, other (episodic bigeminy) Comparison ECG Date: 03/28/2016 Change: Multi-focal PVCs and bigeminy are now present; otherwise, no acute changes. Repeat EKG: Sinus tachycardia at 129 BPM, PVCs and bigeminy. ED Course 0815: Past medical records reviewed. The patient was evaluated in room A10. A complete history and physical examination was performed. On examination she was complaining of dizziness, tachycardia and dyspnea. She did not appear in any distress. She was tachycardic and appear to be an a sinus tachycardia with PVCs, episodic bigeminy. She was placed on continuous telemetry and hemodynamic monitoring established. An IV lock was established and she was medicated with 5 mg of IV Lopressor. On diagnostic testing twelve-lead ECG per my interpretation shows a sinus tachycardia with PVCs/bigeminy with associated bifascicular block. When compared to previous PVCs are now present. [id number] troponin is normal and not suggestive of ischemia. CK-MB are normal not Suggestive of Ischemia. Her Glucose Is Elevated to 244 and She Isn't in Diabetic. BUN and Creatinine Are Elevated to 44 and 1.4 and She Does Have Known Chronic Renal Disease. CBC Is Normal No Anemia. No Leukocytosis. Electrolytes are normal. Magnesium is normal. TSH is normal and not suggestive of inadequately treated hypothyroidism. Chest x-ray shows increased pulmonary congestion without overt pulmonary edema The patient has been medicated with 5 mg of Lopressor 2. She continues to be mildly tachycardic. A repeat cardiogram is been done and again to me appears to be a sinus rhythm with frequent PVCs and bigeminy. The computer interpretation however is Atrial flutter with variable block. She does have mild heart failure and has been medicated with 40 mg of IV Lasix. She is also been medicated with some of her routine morning meds including Imdur , Plavix and baby aspirin. In light of her congestive heart failure and tachyarrhythmia, Consultation has been made with Dr. Bird and the patient will be evaluated by the hospitalist for admission. I refer you to their dictation for further treatment plan. While here in the emergency room she has remained hemodynamically stable and comfortable. On reexamination :She continues with tachycardia given and additional 5 mg of IV - lopressor for a Total of 15 mg . The patient despite this therapy continues to be tachycardic. A repeat cardiogram was done and continued again to showed a tachycardia, and bigeminy. Consultation was made with Dr. King and ECG's were reviewed It is his impression that this is atrial fibrillation. He has recommended amiodarone therapy. She has been given a bolus and started on a drip. 0825: Ordered Lopressor 5 mg IV. 0850: Aspirin 81 mg PO, Lasix Inj 40 mg IV. 0855: Upon reexamination the patient is feeling better. I discussed results and treatment plan with the patient. She verbalizes agreement and understanding. The patient will be evaluated for further management. 0857: Ordered Lopressor 5 mg IV. 0900: Isosorbide Mononitrate 60 mg PO, Clopidogrel Bisulfate 75 mg PO. 0916: I discussed the case with Dr. Bird - [facility] Hospitalist. The patient will be evaluated for further management. 0950: I reassessed the patient. Ordered Insulin Human Regular 40 units SC, Lopressor 5 mg IV. 1000: Ordered Insulin Human NPH 20 units SC. 1115: Ordered Insulin Human NPH 20 units SQ. 1128: I reassessed the patient. She was still tachycardic with bigeminy on the monitor. 1137: I discussed the case with Dr. Christine [facility]. Medical Decision EMR, nurse's notes, diagnostic studies personally reviewed Differential diagnosis-see above The chart was completed utilizing [employer] Speech Voice Recognition Software. Grammatical errors, random word insertions, pronoun errors, and incomplete sentences are an occasional consequence of this system due to software limitations, ambient noise, and hardware issues. Any formal questions or concerns about the content, text, or information contained within the body of this dictation should be directly addressed to the physician for clarification. Consults Time Called: 902 Consulting Physician: Dr. Marge RIZVI Hospitalist Returned Call: [phone] I discussed the case with him. The patient will be evaluated for further management. Additional Consults: Time Called: 1127 Consulted Physician: Dr. Christine [facility] Returned Call: [phone] Additional Comments: I discussed the case with him. Impression Primary Impression: CHF (congestive heart failure) Additional Impression: New onset a-fib Critical Care I have personally spent greater than 35 minutes of critical care time in the direct management of this patient. This includes bedside care, interpretation of diagnostic studies, and testing, discussion with consultants, patient, and family members, and other required patient management activities. This 35 minutes is in excess of all separately billable procedures. Scribe Attestation The scribe's documentation has been prepared under my direction and personally reviewed by me in its entirety. I confirm that the note above accurately reflects all work, treatment, procedures, and medical decision making performed by me. Departure Information Dispostion Being Evaluated By Hospitalist Referrals Claudette You PA-C (PCP) Patient Instructions My [facility] Problem Qualifiers
[2016-05-18 08:34] LABS: BASO % 0.5 %; BASO ABS # 0.04 K/uL (0-0.2); COMPLETE YES; EOS % 3.4 %; HEMATOCRIT 45.6 % (37-47); IG% 0.3 %; LYMPH % 24.1 %; LYMPH ABS # 2.14 K/uL (1.2-3.4); MEAN CELL VOLUME 91.6 fL (80-100); MEAN CORPUSCULAR HEMOGLOBIN 30.3 pg (25-34); MEAN CORPUSCULAR HGB CONC 33.1 g/dl (32-36); MEAN PLATELET VOLUME 11.3 fL (7.4-10.4); MONO % 7.4 %; NEUT % 64.3 %; PLATELET COUNT 254 K/uL (130-400); RED BLOOD COUNT 4.98 M/uL (4.2-5.4); WHITE BLOOD COUNT 8.87 K/uL (4.8-10.8)
[2016-05-18 08:42] LABS: INR 1.1 (0.9-1.1); PARTIAL THROMBOPLASTIN RATIO 1.1; PROTHROMBIN TIME (PATIENT) 11.4 SECONDS (9.0-12.0)
[2016-05-18 08:44] LABS: BUN/CREATININE RATIO 31.4 (10-20); CALCIUM 9.1 mg/dl (8.5-10.1); CREATININE 1.4 mg/dl (0.60-1.20); MAGNESIUM 1.8 mg/dl (1.8-2.4); POTASSIUM 4.2 mmol/L (3.5-5.1)
--- NOTE | 2016-05-18 08:46 | DIAGNOSTIC IMAGING REPORT ---
CHEST ONE VIEW PORTABLE CLINICAL HISTORY: Shortness of breath. Tachycardia. COMPARISON STUDY: Chest radiograph April 18, 2012. FINDINGS: There are median sternotomy wires. Cardiac size is normal. There is pulmonary vascular congestion without overt pulmonary edema. No pneumothorax or pleural effusion is present. No consolidation is identified. IMPRESSION: Pulmonary vascular congestion without overt pulmonary edema. Electronically signed by: Chava Del Valle M.D. 05/18/2016 8:45 AM Dictated Date/Time: 05/18/2016 8:43 AM
[2016-05-18] MEDS ORDERED: FUROSEMIDE 40 MG/4 ML VIAL IV STA (08:50)
[2016-05-18] MEDS ORDERED: ASPIRIN 324 MG CHEW PO STA (08:50)
[2016-05-18 08:58] LABS: CKMB/CK RATIO 2.2 (0-3.0); THYROID STIMULATING HORMONE 2.86 uIu/ml (0.300-4.500)
[2016-05-18] MEDS ORDERED: ISOSORBIDE MONONITRATE 30 MG TABCR PO ONE (09:00)
[2016-05-18] MEDS ORDERED: CLOPIDOGREL BISULFATE 75 MG TAB PO ONE (09:00)
[2016-05-18] MEDS ORDERED: FENO160T PO (09:10)
[2016-05-18] MEDS ORDERED: INSHNI SC (09:10)
[2016-05-18] MEDS ORDERED: MONT1TAB5 PO (09:10)
[2016-05-18] MEDS ORDERED: CHOL20007 PO (09:10)
[2016-05-18] MEDS ORDERED: HYG/25 PO (09:10)
[2016-05-18] MEDS ORDERED: ASPI81TA28 PO (09:10)
[2016-05-18] MEDS ORDERED: INSU100I SC (09:10)
[2016-05-18] MEDS ORDERED: NovoLIN-R INSULIN PER UNIT CHARGE SC STA (09:50)
[2016-05-18] MEDS ORDERED: INSULIN HUMAN NPH SC SCH ×2 (10:00→21:00)
[2016-05-18] MEDS ORDERED: NovoLIN-N (NPH) PER UNIT CHARGE SQ SCH (11:15)
[2016-05-18] MEDS ORDERED: AMIODARONE IV BOLUS / DRIP IV STA (11:40)
--- NOTE | 2016-05-18 11:51 | Cardiology Consultation ---
Cardiology Consultation Date of Service May 18, 2016. Cardiology Consultation Sujata Rausch is a 66-year-old female who typically follows with Dr. Galdamez of our practice for history of coronary artery disease and mitral valve stenosis. Should most recently been seen by Dr. Galdamez on 04/19/16 as an outpatient. His note describes that she has a history of CAD with non-ST segment elevation myocardial infarction in 2004 at which time she underwent single-vessel CABG with vein graft to the LAD as well as a PCI to the circumflex coronary artery. She has severe mitral annular calcification and on her most recent echocardiogram performed a [facility] in January 2016 mild to moderate mitral stenosis was noted as well as mild pulmonary hypertension. The patient's case was discussed with Dr. Martin of the ED. patient presents to the ER today complaining of palpitations, with onset this morning. EKG reveals atrial fibrillation with rapid ventricular rate 135 bpm. Her heart rates have not improved with doses of IV metoprolol thus far. She has an apparent past intolerance of diltiazem. Given her history of mitral valve stenosis, it is not surprising for the patient to present with atrial arrhythmias and I think that a rhythm control strategy would be ideal as it is anticipated that she would not tolerate atrial fibrillation well due to loss of preload. I recommend that since her atrial fibrillation has been less than 24 hours in duration to proceed with administering IV amiodarone. She does have a past history of iodinated contrast allergy per review of her history does not appear that this was necessarily an anaphylactoid reaction to believe that it is reasonable to proceed with a trial of IV amiodarone under hospital-based supervision. Given her history of mitral stenosis she is at high risk of developing atrial arrhythmias and therefore I think we should proceed with anticoagulation without delay and therefore unfractionated heparin is also recommended. Cardiac she consultation is process. The above recommendations were offered by telephone and I will see the patient in person soon. Kristie King DO
[2016-05-18] MEDS ORDERED: AMIODARONE / D5W 100 ML IV SCH (12:00)
[2016-05-18] MEDS ORDERED: AMIODARONE / D5W 200 ML IV SCH (12:10)
[2016-05-18] MEDS ORDERED: HEPARIN SOD 5000 UNIT/0.5 ML CARP ONE (12:27)
[2016-05-18] MEDS ORDERED: HEPARIN 25000 UNIT/500 ML D5W ONE (12:27)
[2016-05-18] MEDS ORDERED: NITROGLYCERIN 0.4 MG SL PER TAB CHARGE SL PRN (12:45)
[2016-05-18] MEDS ORDERED: ZOLPIDEM TARTRATE 5 MG TAB PO PRN (12:45)
[2016-05-18] MEDS ORDERED: DEXTROSE 50% 50 ML SYR IV PRN (12:45)
[2016-05-18] MEDS ORDERED: ONDANSETRON INJ 2 MG/ML 2 ML VIAL IV PRN (12:45)
[2016-05-18] MEDS ORDERED: GLUCAGON FOR INJ 1 MG VIAL SQ PRN (12:45)
[2016-05-18] MEDS ORDERED: ACETAMINOPHEN 325 MG TAB PO PRN (12:45)
[2016-05-18] MEDS ORDERED: ALUMINUM/MAGNESIUM/SIMETH (MAALOX MAX) 30 ML UDC PO PRN (12:45)
[2016-05-18] MEDS ORDERED: POLYETHYLENE (MIRALAX) 17 GM PACK PO PRN (12:45)
[2016-05-18] MEDS ORDERED: GLUCOSE 10 TABS/TUBE PO PRN (12:45)
[2016-05-18] MEDS ORDERED: GLUCOSE 40% GEL 15 GM TUBE PO PRN (12:45)
[2016-05-18] MEDS ORDERED: PHARMACY GLYCEMIC MGMT CONSULT PRN (13:15)
[2016-05-18] MEDS ORDERED: DC ALL PREVIOUSLY ORDERED DIABETES MEDS ONE (13:15)
[2016-05-18 13:41] VITALS: BP 106/84; PULSE 135; TEMP 37; O2SAT 95; BMI 44.3
[2016-05-18] MEDS ORDERED: HEPARIN SOD 5000 UNIT/0.5 ML CARP SQ SCH (14:00)
[2016-05-18] MEDS ORDERED: HEPARIN 25,000 UNIT/500ML D5W 500 ML IV PRN (14:30)
[2016-05-18] MEDS ORDERED: HEPARIN IV BOLUS 5,000 UNIT in SYRINGE 0 ML IV ONE (14:30)
--- NOTE | 2016-05-18 15:28 | Pharmacy Progress Note ---
Glycemic Control Intl Consult Date of Service May 18, 2016. Scope Glycemic Pharmacist consulted by Dr Means on 05/18/16 for glycemic control and to write orders per [facility] inpatient glycemic control protocol Objective Weight (Kilograms): 103.000 Accuchecks BSG (last 24hrs): Test 05/18/16 08:16 Random Glucose 244 mg/dl (70-99) HbA1c Item Value Date Time Hemoglobin A1c 7.5 % H 02/10/16 0635 Recent Pertinent Medications Outpatient Anti-diabetic Regimen: * NPH 55 units SQ HS * Humalog SSI --> up to 150units/day Risk Factors for Insulin Resistance: * IVF/multiple meds mixed in dextrose * Stress * Diet Assessment & Plan ASSESSMENT: * 66yo T2DM female with adequate glycemic control on current regimen per recent A1c from January. Updated A1c pending for tomorrow with AM labs. * Pt uses up to 200 units of insulin per day per med rec * Suspect that patient may not need this much insulin while admitted d/t decreased PO intake/controlled CHO diet * Pt received NPH 20 units in ED + Regular insulin 40 units to cover meal tray in ED * Pt usually takes NPH once daily in the evening but has now received half of her home dosing this morning. * Will adjust orders accordingly. Best to split basal insulin BID for admission to prevent hypo when pt status changes. BID dosing is more easily, and quickly, titratable. * Unsure of exactly what insulin needs will be. Will utilize weight based dosing based on BSG. * ADA & AACE recommend a goal blood sugar range 140-180 mg/dl for the majority of critically ill & non-critically ill patients. However, more stringent targets may be selected in individual cases. Will utilize more stringent goal of 110-140mg/dl based on patient age, comorbidities, and tight glycemic control at baseline. PLAN FOR INPATIENT GLYCEMIC CONTROL: * Basal insulin with NPH BID - dose per BSG * If BSG 180mg/dl or below --> administer NPH 20 units * If BSG 181mg/dl or above --> administer NPH 28 units * NovoLog per scale ACHS or Q6hrs while NPO. Additional check + coverage at 0200 in the event that hyperglycemia results from decreased basal insulin dosing * Goal Range: Low 110 mg/dL - High 140 mg/dL * Correction Factor: 15 mg/dL/unit * Nutritional / Prandial insulin per carb ratio of 1 unit per 5 grams CHO consumed * Re-evaluate outpatient regimen once updated A1c available * Please note that the plan above was derived based on current level of insulin resistance and hospital stress. These recommendations are appropriate for inpatient admission only. Plan of care upon discharge will need to be reassessed to avoid potential outpatient hypo/hyperglycemia. Thank you.
[2016-05-18] MEDS ORDERED: NURSING VERBAL MED ORDER ONE (15:30)
[2016-05-18 15:42] VITALS: BP 91/66; PULSE 115; TEMP 36.9; O2SAT 95
[2016-05-18] MEDS ORDERED: METOPROLOL TARTRATE 100 MG TAB PO ONE (15:45)
[2016-05-18] MEDS ORDERED: SODIUM CHLORIDE 0.9% 1000ML 500 ML IV SCH (15:45)
[2016-05-18 15:49] VITALS: BP 93/48; PULSE 128
[2016-05-18 16:00] VITALS: O2SAT 95
--- NOTE | 2016-05-18 16:15 | Cardiology Consultation ---
Cardiology Consultation Date of Consultation: May 18, 2016 History of Present Illness Sujata Rausch is a 66 year old female seen in cardiology consultation per the request of Dr Martin for the evaluation of AF RVR. Patient reports waking up this am with generalized weakness and sensation of an irregular heart "pounding" sensation. Presenting EKG revealed AF with RVR at 135 bpm and incomplete RBBB. Patient received IV metoprolol with mild improvement in ventricular rate. After discussion with Dr Martin , I recommended that given patient's history of mild to moderate mitral stenosis, and symptomatic AF of less than 24 hours duration, and past intolerance of diltiazem would proceed with IV amiodarone infusion. Pt 's rates are mildly improved. On arrival to telemetry floor pt had transient nausea, had diarrhea, and now feels better resting in bed. BP his now lower with SBP of 90-100 mm Hg. History PAST MEDICAL HISTORY: 1. Coronary artery disease. 2. Non- ST segment elevation myocardial infarction in 2004 at which time cardiac catheterization revealed multivessel disease including high-grade left anterior descending coronary artery stenosis and stenosis in the circumflex territory. She went on to have coronary artery bypass grafting x1 with SVG to LAD at [facility] during that admission in 2004 and also had percutaneous stenting to 2 regions of the circumflex territory during that stay. 3. Obesity. 4. Type 2 diabetes mellitus. 5. Dyslipidemia. 6. Hypertension. 7. Chart history of apparent peripheral vascular disease. 8. Severe mitral annular calcification, moderate to severe mitral stenosis. PAST SURGICAL HISTORY: 1. Coronary artery bypass grafting 2004 with SVG to the LAD as well as stent placement to the circumflex as outlined above. 2. Cataract surgery. 3. Appendectomy. 4. History of section. SOCIAL HISTORY: The patient is a . 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 She is a nonsmoker. Does not take in alcoholic beverages chronically. FAMILY HISTORY: Mother of complications associated with COPD and her father of colon cancer. She has 7 brothers 5 of whom have had myocardial infarctions, 1 due to complications of [place]. Review Of Systems See above for pertinent positives & negatives. A total of 10 systems reviewed and were otherwise negative. Allergies Coded Allergies: Oxycodone (Verified Allergy, Mild, ITCHING ON BACK, 03/28/16) Blood-Group Specific Substance (Verified Allergy, Unknown, NO BLOOD PRODUCTS, 2/5/17) Iodinated Contrast Media (Verified Allergy, Unknown, TEARS AND FACE BECAME VERY REDDENED, 03/28/16) Diltiazem (Verified Adverse Reaction, Unknown, PAIN IN NECK, 03/28/16) Medications Reported Home Medications Medications Dose Route/Sig Max Daily Dose Days Date Category Dose Instructions Vitamin D3 (Cholecalciferol) 2,000 Unit Tab 2,000 Units PO DAILY 05/18/16 Reported Montelukast Sodium 10 Mg Tab 10 Mg PO DAILY 05/18/16 Reported Humulin N (Insulin Human NPH) 100 Units/Ml Susp 55 Units SC HS 05/18/16 Reported Humalog (Insulin Lispro (Human)) 100 Unit/Ml Inj 1 Dose SC DIRECTED 05/18/16 Reported PER SLIDING SCALE UP TO 150 UNITS DAILY Tricor (Fenofibrate) 160 Mg Tab 160 Mg PO DAILY 05/18/16 Reported [place] (Chlorthalidone) 25 Mg Tab 25 Mg PO DAILY 05/18/16 Reported Aspirin Ec (Aspirin) 81 Mg Tab 81 Mg PO DAILY 05/18/16 Reported Levothyroxine Sodium 137 Mcg Tab 137 Mcg PO QAM 03/28/16 Reported TAKE EVERY MORNING WITH A FULL GLASS OF WATER ON EMPTY STOMACH. WAIT 30 MINS TO EAT, DRINK OR TAKE OTHER MEDS Zestril (Lisinopril) 40 Mg Tab 40 Mg PO DAILY 05/30/13 Reported Lipitor (Atorvastatin Calcium) 40 Mg Tab 40 Mg PO DAILY 05/30/13 Reported [place]-3 (Fish Oil) 1 Ea Cap 1,200 Mg PO DAILY 11/27/10 Reported Multivitamin (Multivitamins) Tab 1 Tablet PO DAILY 08/14/08 Reported Plavix (Clopidogrel Bisulfate) 75 Mg Tab 75 Mg PO DAILY 08/14/08 Reported Imdur Ext Rel (Isosorbide Mononitrate) 30 Mg Ertab 60 Mg PO QAM 08/14/08 Reported Lopressor (Metoprolol Tartrate) 100 Mg Tab 100 Mg PO BID 08/14/08 Reported Physical Exam Vital Signs (Last 8hrs): Last 8 Hrs Date Time Temp Pulse Resp B/P Pulse Ox O2 Delivery O2 Flow Rate FiO2 05/18/16 15:49 128 93/48 05/18/16 15:42 36.9 115 20 91/66 95 Room Air 05/18/16 14:37 136 16 106/72 05/18/16 14:00 135 18 117/76 95 Room Air 05/18/16 13:41 37.0 135 18 106/84 95 Room Air 05/18/16 12:50 130 18 119/83 95 Room Air 05/18/16 12:44 145 05/18/16 12:32 123 16 133/85 94 Room Air 05/18/16 10:08 122 18 129/64 97 Room Air 05/18/16 10:07 123 129/64 05/18/16 09:32 137 138/81 05/18/16 09:17 123 129/106 05/18/16 09:00 103 05/18/16 08:40 127 18 153/85 95 Room Air 05/18/16 08:40 132 153/85 05/18/16 08:23 95 Room Air 05/18/16 08:13 37.0 139 20 158/103 97 Room Air General Appearance: Alert and Oriented x3. NAD. Head: Normocephalic Atraumatic. Eyes: PERRLA, EOMI, conjunctiva and sclera clear Neck: Supple. No carotid bruits noted. No JVD. No HJD. Respiratory: Breath sounds clear to auscultation bilaterally. No w/r/r. Cardiovascular: irregular rhythm, no murmurs. Abdomen: Normal bowel sounds, soft nontender. no abdominal bruits. Extremities: No edema, no clubbing or cyanosis. distal pulses 2/4 bilaterally. Neuro: No focal deficits. Data Last Resulted 05/18/16 08:16 Red Blood Count 4.98, Mean Corpuscular Volume 91.6, Mean Corpuscular Hemoglobin 30.3, Mean Corpuscular Hemoglobin Concent 33.1, Mean Platelet Volume 11.3, Neutrophils (%) (Auto) 64.3, Lymphocytes (%) (Auto) 24.1, Monocytes (%) (Auto) 7.4, Eosinophils (%) (Auto) 3.4, Basophils (%) (Auto) 0.5, Neutrophils # (Auto) 5.70, Lymphocytes # (Auto) 2.14, Monocytes # (Auto) 0.66, Eosinophils # (Auto) 0.30, Basophils # (Auto) 0.04 Last Resulted 05/18/16 08:16 Past 24 Hours Test 05/18/16 08:16 Range/Units Creatine Kinase MB 1.5 0.5-3.6 ng/ml Creatine Kinase MB Ratio 2.2 0-3.0 Prothromb Time International Ratio 1.1 0.9-1.1 Prothrombin Time 11.4 9.0-12.0 SECONDS Total Creatine Kinase 68 26-192 U/L EKG: as per HPI Assessment & Plan IMPRESSION: 1. AF, RVR 2. h/o Mild to Moderate mitral stenosis, MV gradient likely increased in setting of AF, RVR and resultant decreased diastolic filling time. 3. Chronic CAD. RECOMMENDATIONS: 1. continue home metoprolol dose. 2. IV amiodarone. 3. IV heparin. 4. Will hold of on repeating echocardiogram at present until rate better controlled. 5. Start coumadin. Kristie King DO
[2016-05-18] MEDS ORDERED: WARFARIN SOD 5 MG TAB PO ONE (16:30)
[2016-05-18] MEDS: INSULIN ASPART 100 UNITS/ML 3 ML PEN SC SCH ×2 (17:27→20:53)
[2016-05-18] MEDS: AMIODARONE / D5W 200 ML IV SCH (18:17)
[2016-05-18 19:12] LABS: PARTIAL THROMBOPLASTIN RATIO 4.6
[2016-05-18 19:44] VITALS: BP 105/62; PULSE 75; TEMP 36.9; O2SAT 93
--- NOTE | 2016-05-18 19:45 | History and Physical ---
History & Physical Date & Time of Service: May 18, 2016 at 19:31 Chief Complaint: Tachycardia Primary Care Physician: Claudette You PA-C History of Present Illness Source: patient Sujata Rausch is a 66 year old female with PMHx of CAD S/P CABG X1 in 2004, DMII, HTN, CKD stage 2-3 and hypothyroidism on synthroid. She was in her regular state of health until today at 5 am when she woke up to use the bathroom. she felt severe palpitation, dizziness and associated SOB. she tried to go back to sleep but symptoms persisted she denied any CP presented to ED and found to have AF with RVR at 135 bpm and incomplete RBBB. Patient received IV metoprolol with mild improvement in ventricular rate. could not give cardizem as she had reported allergy SBP of 90-100 mm Hg. typewriter assembler was consulted and initiated amiodarone drip Past Medical/Surgical History Medical Problems: (1) Diab Enma Wo Compl, Type Ii Or Unspec Type, Not Uncntrld Status: Chronic (2) Hypertension Nos Status: Chronic (3) Old Myocardial Infarct Status: Chronic (4) Percutaneous Translum Coron Angioplasty Status Status: Resolved (5) Pure Hypercholesterolem Status: Chronic Family History Diabetes mellitus FHx: cancer FHx: gallbladder disease FHx: heart disease Hypertension Kidney disease Kidney stones Seizures Social History Smoking Status: Never Smoker Marital Status: Housing status: lives with family Occupational Status: retired Immunizations History of Influenza Vaccine: Yes Influenza Vaccine Date: Dec 20, 2010 History of Tetanus Vaccine?: UTD History of Pneumococcal: Yes History of Hepatitis B Vaccine: No Multi-Drug Resistant Organisms History of MDRO: No Allergies Coded Allergies: Oxycodone (Verified Allergy, Mild, ITCHING ON BACK, 03/28/16) Blood-Group Specific Substance (Verified Allergy, Unknown, NO BLOOD PRODUCTS, 03/28/16) Iodinated Contrast Media (Verified Allergy, Unknown, TEARS AND FACE BECAME VERY REDDENED, 03/28/16) Diltiazem (Verified Adverse Reaction, Unknown, PAIN IN NECK, 03/28/16) Home Medications Scheduled Aspirin (Aspirin Ec), 81 MG PO DAILY Atorvastatin (Lipitor), 40 MG PO DAILY Chlorthalidone (Hygroton), 25 MG PO DAILY Cholecalciferol (Vitamin D3), 2,000 UNITS PO DAILY Clopidogrel (Plavix), 75 MG PO DAILY Fenofibrate (Tricor), 160 MG PO DAILY Fish Oil ([place]-3), 1,200 MG PO DAILY Insulin Human NPH (Humulin N), 55 UNITS SC HS Insulin Lispro (Human) (Humalog), 1 DOSE SC DIRECTED Isosorbide Mononitrate Ext Rel (Imdur Ext Rel), 60 MG PO QAM Levothyroxine Sodium (Levothyroxine Sodium), 137 MCG PO QAM Lisinopril (Zestril), 40 MG PO DAILY Metoprolol Tartrate (Lopressor) (Lopressor), 100 MG PO BID Montelukast Sodium (Montelukast Sodium), 10 MG PO DAILY Multivitamin (Multivitamin), 1 TABLET PO DAILY Review of Systems Constitutional: No chills, No fatigue, No fever, No problem reported, No sweats , No weakness, No weight loss Eyes: No diplopia, No discharge, No eye pain, No problem reported, No redness, No worsening of vision ENT: No dental problems, No hearing loss, No nasal symptoms, No problem reported, No sore throat, No tinnitus, No trouble swallowing, No unusual epistaxis Respiratory: No cough, No dyspnea at rest, No dyspnea on exertion, No hemoptysis, No problem reported, No shortness of breath, No sputum, No wheezing Cardiovascular: + palpitations, No PND, No chest pain, No claudication, No edema, No orthopnea, No problem reported Abdomen: No GI bleeding, No constipation, No diarrhea, No nausea, No pain, No problem reported, No vomiting Musculoskeletal: No calf pain, No joint pain, No muscle pain, No problem reported, No swelling Genitourinary - Female: No dysmenorrhea, No dysuria, No hematuria, No menorrhagia, No metrorrhagia, No , No problem reported, No rash, No urinary frequency, No urinary incontinence, No urinary retention, No urinary urgency, No vaginal bleeding, No vaginal discharge, No vaginal itching, No vulvodynia Neurologic: + vertigo, No balance problems, No memory loss, No numbness/ tingling, No paralysis, No problem reported, No weakness Psychiatric: No anhedonism, No anxiety, No depression symptoms, No insomnia, No problem reported, No substance abuse Endocrine: No excessive thirst, No excessive urination, No fatigue, No problem reported Hematologic / Lymphatic: No abnormal bleeding/bruising, No clotting problems, No night sweats, No problem reported, No swollen lymph nodes Integumentary: No bleeding, No color change, No itch, No new/changing skin lesions, No problem reported, No rash Allergic / Immunologic: No environmental allergies, No food allergies, No frequent infections, No hives, No pet sensitivities, No poor healing, No problem reported, No prolonged convalescence, No seasonal allergies Physical Exam Vital Signs Date Time Temp Pulse Resp B/P Pulse Ox O2 Delivery O2 Flow Rate FiO2 05/18/16 15:49 128 93/48 05/18/16 15:42 36.9 115 20 91/66 95 Room Air 05/18/16 14:37 136 16 106/72 05/18/16 14:00 135 18 117/76 95 Room Air 05/18/16 13:41 37.0 135 18 106/84 95 Room Air 05/18/16 12:50 130 18 119/83 95 Room Air 05/18/16 12:44 145 05/18/16 12:32 123 16 133/85 94 Room Air 05/18/16 10:08 122 18 129/64 97 Room Air 05/18/16 10:07 123 129/64 05/18/16 09:32 137 138/81 05/18/16 09:17 123 129/106 05/18/16 09:00 103 05/18/16 08:40 127 18 153/85 95 Room Air 05/18/16 08:40 132 153/85 05/18/16 08:23 95 Room Air 05/18/16 08:13 37.0 139 20 158/103 97 Room Air General Appearance: no apparent distress Head: normocephalic, atraumatic Eyes: normal inspection, EOMI ENT: normal ENT inspection, hearing grossly normal Neck: supple Respiratory/Chest: chest non-tender, lungs clear, normal breath sounds, no respiratory distress, no accessory muscle use Cardiovascular: + tachycardia, + irregularly irregular Abdomen/GI: normal bowel sounds, non tender, soft, no organomegaly, no pulsatile mass Back: normal inspection, no CVA tenderness, no muscle spasm Extremities/Musculoskelatal: normal inspection, no calf tenderness, normal capillary refill, no pedal edema Neurologic/Psych: fixture maker II-XII nml as tested, no motor/sensory deficits, alert, normal mood/affect, normal reflexes, oriented x 3 Skin: normal color, warm/dry, no rash Diagnostics Laboratory Results Results Past 24 Hours Test 05/18/16 08:16 05/18/16 08:30 05/18/16 16:07 05/18/16 18:35 Range/Units White Blood Count 8.87 4.8-10.8 K/uL Red Blood Count 4.98 4.2-5.4 M/uL Hemoglobin 15.1 12.0-16.0 g/dL Hematocrit 45.6 37-47 % Mean Corpuscular Volume 91.6 80-100 fL Mean Corpuscular Hemoglobin 30.3 25-34 pg Mean Corpuscular Hemoglobin Concent 33.1 32-36 g/dl Platelet Count 254 130-400 K/uL Mean Platelet Volume 11.3 7.4-10.4 fL Neutrophils (%) (Auto) 64.3 % Lymphocytes (%) (Auto) 24.1 % Monocytes (%) (Auto) 7.4 % Eosinophils (%) (Auto) 3.4 % Basophils (%) (Auto) 0.5 % Neutrophils # (Auto) 5.70 1.4-6.5 K/uL Lymphocytes # (Auto) 2.14 1.2-3.4 K/uL Monocytes # (Auto) 0.66 0.11-0.59 K/uL Eosinophils # (Auto) 0.30 0-0.5 K/uL Basophils # (Auto) 0.04 0-0.2 K/uL RDW Standard Deviation 44.9 36.4-46.3 fL RDW Coefficient of Variation 13.7 11.5-14.5 % Immature Granulocyte % (Auto) 0.3 % Immature Granulocyte # (Auto) 0.03 0.00-0.02 K/uL Prothrombin Time 11.4 9.0-12.0 SECONDS Prothromb Time International Ratio 1.1 0.9-1.1 Activated Partial Thromboplast Time 27.5 120.3 21.0-31.0 SECONDS Partial Thromboplastin Ratio 1.1 4.6 Sodium Level 140 136-145 mmol/L Potassium Level 4.2 3.5-5.1 mmol/L Chloride Level 104 98-107 mmol/L Carbon Dioxide Level 28 21-32 mmol/L Anion Gap 8.0 3-11 mmol/L Blood Urea Nitrogen 44 7-18 mg/dl Creatinine 1.40 0.60-1.20 mg/dl Est Creatinine Clear Calc Drug Dose 41.6 ml/min Estimated GFR () 44.6 Estimated GFR (Non- 38.5 BUN/Creatinine Ratio 31.4 10-20 Random Glucose 244 70-99 mg/dl Calcium Level 9.1 8.5-10.1 mg/dl Magnesium Level 1.8 1.8-2.4 mg/dl Total Creatine Kinase 68 26-192 U/L Creatine Kinase MB 1.5 0.5-3.6 ng/ml Creatine Kinase MB Ratio 2.2 0-3.0 Thyroid Stimulating Hormone (TSH) 2.860 0.300-4.500 uIu/ml Bedside Troponin I 0.000 0-0.045 ng/ml Bedside Glucose 153 70-90 mg/dl Impression Assessment and Plan Sujata Rausch is a 66 year old female with PMHx of CAD S/P CABG X1 in 2004, DMII, HTN, CKD stage 2-3 and hypothyroidism on synthroid. ASSESSMENT: AF, RVR continue home metoprolol dose. STARTED ON IV amiodarone. giving her high dano score she was started on heparin IV Hx of Coronary artery disease s/p CABG X1 and 2 stents Continue home metoprolol morbid Obesity / clinically suspected LILY. nocturnal study Type 2 diabetes mellitus. insulin requiring SSI Dyslipidemia. continue statin Hypertension. currently border line low pressure Advanced Directives Existing Living Will: Yes Existing Power of Inseam Trimmer: Yes VTE Prophylaxis VTE Risk Assessment Done? Y/N: Yes Risk Level: Moderate
[2016-05-18 23:48] VITALS: BP 116/51; PULSE 67; TEMP 37; O2SAT 96
[2016-05-19] VITALS (7 sets, daily range): BP systolic 104–159; BP diastolic 49–79; PULSE 58–71; TEMP 36.3–37; O2SAT 92–99; Ht 152.4 cm; Wt 105.4 kg
[2016-05-19] MEDS: FENOFIBRATE 145 MG TAB PO SCH ×2 (00:30→20:51)
[2016-05-19] MEDS: ATORVASTATIN 40 MG TAB PO SCH ×2 (00:30→20:51)
[2016-05-19] MEDS ORDERED: INSULIN ASPART 100 UNITS/ML 3 ML PEN SC SCH (02:00)
[2016-05-19 04:03] LABS: INR 1.1 (0.9-1.1); PARTIAL THROMBOPLASTIN RATIO 2.2; PROTHROMBIN TIME (PATIENT) 12.2 SECONDS (9.0-12.0)
[2016-05-19] MEDS: LEVOTHYROXINE 137 MCG TAB PO SCH (05:55)
[2016-05-19] MEDS: AMIODARONE / D5W 200 ML IV SCH (05:56)
[2016-05-19 07:15] LABS: BASO % 0.3 %; BASO ABS # 0.03 K/uL (0-0.2); COMPLETE YES; EOS % 4.6 %; HEMATOCRIT 42.4 % (37-47); IG% 0.2 %; LYMPH % 28.8 %; LYMPH ABS # 2.58 K/uL (1.2-3.4); MEAN CELL VOLUME 92.8 fL (80-100); MEAN CORPUSCULAR HEMOGLOBIN 30.9 pg (25-34); MEAN CORPUSCULAR HGB CONC 33.3 g/dl (32-36); MEAN PLATELET VOLUME 11.6 fL (7.4-10.4); MONO % 7.8 %; NEUT % 58.3 %; PLATELET COUNT 219 K/uL (130-400); RED BLOOD COUNT 4.57 M/uL (4.2-5.4); WHITE BLOOD COUNT 8.95 K/uL (4.8-10.8)
[2016-05-19 07:21] LABS: ESTIMATED AVERAGE GLUCOSE 171 mg/dl; HA1C FLAG Normal (Normal)
[2016-05-19 07:56] LABS: ALB/GLOB RATIO 0.8 (0.9-2); ALKALINE PHOSPHATASE 38 U/L (45-117); ALT/SGPT 23 U/L (12-78); BLOOD UREA NITROGEN 55 mg/dl (7-18); BUN/CREATININE RATIO 30.3 (10-20); CALCIUM 8.8 mg/dl (8.5-10.1); CARBON DIOXIDE 29 mmol/L (21-32); CHLORIDE 102 mmol/L (98-107); GLUCOSE 168 mg/dl (70-99); PHOSPHORUS 4.6 mg/dl (2.5-4.9); SODIUM 140 mmol/L (136-145)
[2016-05-19] MEDS: METOPROLOL TARTRATE 100 MG TAB PO SCH ×2 (08:51→20:52)
[2016-05-19] MEDS: ASPIRIN 81 MG ECTAB PO SCH (08:52)
[2016-05-19] MEDS: INSULIN ASPART 100 UNITS/ML 3 ML PEN SC SCH ×4 (08:59→20:55)
[2016-05-19] MEDS: INSULIN HUMAN NPH SC SCH ×2 (09:01→20:54)
[2016-05-19 09:25] LABS: MAGNESIUM 1.8 mg/dl (1.8-2.4)
[2016-05-19] MEDS ORDERED: SODIUM CHLORIDE 0.9% 500ML 500 ML IV SCH (10:00)
[2016-05-19] MEDS ORDERED: AMIODARONE 200 MG TAB PO ONE (10:04)
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
--- NOTE | 2016-05-19 12:00 | Pharmacy Progress Note ---
Glycemic Control: Progress Nt Date of Service May 19, 2016. Scope Glycemic Pharmacist consulted by Dr Means on 05/18/16 for glycemic control and to write orders per [facility] inpatient glycemic control protocol. Objective Accuchecks BSG (last 24hrs): Test 05/18/16 16:07 05/18/16 20:16 05/19/16 01:47 05/19/16 05:57 Bedside Glucose 153 mg/dl (70-90) 151 mg/dl (70-90) 163 mg/dl (70-90) 145 mg/dl (70-90) Test 05/19/16 07:03 Random Glucose 168 mg/dl (70-99) HbA1c: Test 05/19/16 07:03 Hemoglobin A1c 7.6 % (4.5-5.6) H Recent Pertinent Medications Outpatient Anti-diabetic Regimen: * NPH 55 units SQ HS * Humalog SSI --> up to 150units/day Risk Factors for Insulin Resistance: * IVF/multiple meds mixed in dextrose * Stress * Diet Assessment & Plan ASSESSMENT: * 66yo T2DM female with adequate glycemic control on current regimen per recent A1c from January & updated A1c from this morning. * Pt uses up to 200 units of insulin per day per med rec * Suspect that patient may not need this much insulin while admitted d/t decreased PO intake/controlled CHO diet * Unsure of exactly what insulin needs will be therefore initial NPH ordered were dosed per BSG to prevent over/under dosing * Pt has received ~ 87 units of insulin over the past 24hrs with adequate glycemic control * Pt usually takes NPH once daily in the evening but had received half of her home dosing in the ED 05/18 AM. Adjusted orders accordingly yesterday and split basal insulin BID for admission. This is best to prevent hypo when pt status changes. BID dosing is more easily, and quickly, titratable. * Seems reasonable to continue SQ basal bolus insulin regimen based on an estimated total daily dose of ~ 100units/day * Will work NPH dosing from BID back to HS when closer to discharge. * ADA & AACE recommend a goal blood sugar range 140-180 mg/dl for the majority of critically ill & non-critically ill patients. However, more stringent targets may be selected in individual cases. Will utilize more stringent goal of 110-140mg/dl based on patient age, comorbidities, and tight glycemic control at baseline. PLAN FOR INPATIENT GLYCEMIC CONTROL: * Basal insulin with NPH 25 units SQ BID * Will work dosing back to HS once closer to discharge * NovoLog per scale ACHS or Q6hrs while NPO * Goal Range: Low 110 mg/dL - High 140 mg/dL * Correction Factor: 15 mg/dL/unit * Nutritional / Prandial insulin per carb ratio of 1 unit per 5 grams CHO consumed Looking ahead to discharge: * A1c = 7.6% on 05/19/16; previous A1c = 7.5% in 01/2016 * Current A1c is in goal range for patient based on age/co-morbidities. * Reasonable to continue previous outpatient regimen at discharge * Please note that the plan above was derived based on current level of insulin resistance and hospital stress. These recommendations are appropriate for inpatient admission only. Plan of care upon discharge will need to be reassessed to avoid potential outpatient hypo/hyperglycemia. Thank you.
--- NOTE | 2016-05-19 13:40 | ECHOCARDIOGRAM REPORT ---
*NOTICE TO RECEIVING LIBERTARIAN AGENCY This information is strictly Confidential and protected under [place] law. [place] law prohibits you from making any further disclosure of this information unless further disclosure is expressly permitted by the written consent of the person to whom it pertains or is authorized by law. A general authorization for the release of medical or other information is not sufficient for this purpose. Hospital accepts no responsibility if the information is made available to any other person, INCLUDING THE PATIENT. Interpretation Summary * Name: TOAN ALCANTARA Study Date: 05/19/2016 08:09 AM BP: 106/49 mmHg * Patient Location: .2T\S\S239\S\2 HR: 71 * : 1950 (M/d/yyyy) Gender: Female Height: 60 in * Age: 66 yrs Ethnicity: CA Weight: 227 lb * Ordering Physician: Mike King * Referring Physician: Claudette You PA-C * Performed By: Joana Arreguin RDCS * * Reason For Study: Mitral stenosis * BSA: 2.0 m2 * The study was technically adequate. * -- Conclusions -- * The left ventricular wall motion is normal. * There is mild concentric left ventricular hypertrophy. * The LV Ejection Fraction = 65-70%. * The left atrium is moderately dilated. * There is severe mitral annular calcification. * Significant mitral regurgitation is absent. * There is mild to moderate mitral stenosis. * The mean diastolic gradient across the mitral valve= 5 mm Hg. * The calculated mitral valve area=2.1 cm 2 by the pressure half time method. * Diastolic dysfunction, Grade II (pseudonormalization pattern). * Compared to the prior study dated 05/19/16, there has been no significant interval change. Procedure Details * A complete two-dimensional transthoracic echocardiogram was performed (2D, M-mode, Doppler and color flow Doppler). Left Ventricle * The left ventricle is normal in size. * There is mild concentric left ventricular hypertrophy. * Left ventricular systolic function is normal. * Ejection Fraction = 65-70%. * The left ventricular wall motion is normal. Right Ventricle * The right ventricle is normal in size and function. Atria * The left atrium is moderately dilated. * Right atrial size is normal. * There is no evidence of atrial septal defect, but resolution does not allow assessment for a patent foramen ovale. Mitral Valve * There is severe mitral annular calcification. * There is mild to moderate mitral stenosis. * Significant mitral regurgitation is absent. Tricuspid Valve * The tricuspid valve is normal. * There is no tricuspid stenosis. * Significant tricuspid regurgitation is absent. * Doppler findings do not suggest pulmonary hypertension. Aortic Valve * The aortic valve is trileaflet. * Aortic stenosis is absent. * There is no significant aortic regurgitation. Pulmonic Valve * The pulmonary valve is not well seen, but the Doppler examination is normal without significant regurgitation or stenosis. Great Vessels * The aortic root and proximal ascending aorta are normal sized. Pericardium/Pleural * There is no pericardial effusion. Great Vessels * Normal inferior vena cava diameter and respiratory variation suggests normal central venous pressure. Left Ventricular Diastolic Function * Diastolic dysfunction, Grade II (pseudonormalization pattern). MMode 2D Measurements and Calculations IVSd 1.2 cm LVIDd 3.2 cm LVIDs 2.1 cm LVPWd 1.2 cm IVS/LVPW 1.0 FS 35.7 % EDV(Teich) 41.6 ml ESV(Teich) 13.9 ml EF(Teich) 66.6 % EDV(cubed) 33.4 ml ESV(cubed) 8.9 ml EF(cubed) 73.4 % LV mass(C)d 115.0 grams LV mass(C)dI 58.4 grams/m\S\2 SV(Teich) 27.7 ml SI(Teich) 14.0 ml/m\S\2 SV(cubed) 24.5 ml SI(cubed) 12.4 ml/m\S\2 ACS 10 cm LA dimension 3.2 cm asc Aorta Diam 2.8 cm LVAd ap4 15.7 cm\S\2 LVLd ap4 5.7 cm EDV(MOD-sp4) 36.2 ml EDV(sp4-el) 37.0 ml LVAs ap4 8.1 cm\S\2 LVLs ap4 4.9 cm ESV(MOD-sp4) 11.5 ml ESV(sp4-el) 11.2 ml EF(MOD-sp4) 68.3 % EF(sp4-el) 69.8 % LVAd ap2 18.3 cm\S\2 LVLd ap2 5.8 cm EDV(MOD-sp2) 44.8 ml EDV(sp2-el) 49.0 ml LVAs ap2 8.8 cm\S\2 LVLs ap2 4.7 cm ESV(MOD-sp2) 14.9 ml ESV(sp2-el) 14.0 ml EF(MOD-sp2) 66.8 % EF(sp2-el) 71.4 % LVLd %diff 2.0 % EDV(MOD-bp) 41.5 ml LVLs %diff -3.97 % ESV(MOD-bp) 12.7 ml EF(MOD-bp) 69.3 % SV(MOD-sp4) 24.7 ml SI(MOD-sp4) 12.6 ml/m\S\2 SV(MOD-sp2) 29.9 ml SI(MOD-sp2) 15.2 ml/m\S\2 SV(MOD-bp) 28.8 ml SI(MOD-bp) 14.6 ml/m\S\2 SV(sp4-el) 25.8 ml SI(sp4-el) 13.1 ml/m\S\2 SV(sp2-el) 35.0 ml SI(sp2-el) 17.8 ml/m\S\2 Doppler Measurements and Calculations MV E max sonam 178.2 cm/sec MV A max sonam 103.3 cm/sec MV E/A 1.7 MV V2 max 191.9 cm/sec MV max PG 14.7 mmHg MV V2 mean 100.0 cm/sec MV mean PG 4.9 mmHg MV V2 VTI 55.3 cm MV P1/2t max sonam 191.9 cm/sec MV P1/2t 102.7 msec MVA(P1/2t) 2.1 cm\S\2 MV dec slope 547.3 cm/sec\S\2 MV dec time 0.24 sec Ao V2 max 142.3 cm/sec Ao max PG 8.1 mmHg Ao max PG (full) 5.2 mmHg LV V1 max PG 3.0 mmHg LV V1 max 86.4 cm/sec PA V2 max 92.3 cm/sec PA max PG 3.4 mmHg PA acc slope 556.2 cm/sec\S\2 PA acc time 0.11 sec TR max sonam 284.5 cm/sec PA pr(Accel) 29.9 mmHg
--- NOTE | 2016-05-19 14:03 | Cardiology Progress Note ---
Cardiology Progress Note Date of Service May 19, 2016. Cardiology Progress Note Patient's echocardiogram reveals stable mild to moderate MS. Calculated mean MV gradient was 5 mm Hg, and mitral valve area=2.1 cm 2 both suggestive of mild MS. At this time will de-escalate her antiarrhythmic therapy by discontinuation of amiodarone, and continue metoprolol in an effort to avoid potential for amiodarone toxicity in this relatively young patient. It was helpful to confirm that despite her contrast allergy, she tolerated a trial of oral and IV amiodarone without allergic reaction, and therefore these agents are future options. If she has recurrent AF, would next consider sotalol. Kristie King, DO
[2016-05-19] MEDS ORDERED: WARFARIN SOD 5 MG TAB PO SCH (16:00)
--- NOTE | 2016-05-19 17:16 | Progress Note ---
Subjective Date of Service: May 19, 2016. Subjective Pt evaluation today including: conversation w/ patient, physical exam, chart review, lab review, review of inpatient medication list Problem List Medical Problems: (1) Cardiac arrhythmia Status: Acute (2) CHF (congestive heart failure) Status: Acute (3) Hyperglycemia Status: Acute (4) New onset a-fib Status: Acute (5) Right flank pain Status: Acute (6) Vomiting Status: Acute Review of Systems Constitutional: No chills, No fatigue, No fever, No problem reported, No see HPI, No sweats, No weakness, No weight loss Eyes: No diplopia, No discharge, No eye pain, No problem reported, No redness, No see HPI, No worsening of vision ENT: No dental problems, No hearing loss, No nasal symptoms, No problem reported, No see HPI, No sore throat, No tinnitus, No trouble swallowing, No unusual epistaxis Respiratory: No cough, No dyspnea at rest, No dyspnea on exertion, No hemoptysis, No problem reported, No see HPI, No shortness of breath, No sputum, No wheezing Cardiac: No PND, No chest pain, No claudication, No edema, No orthopnea, No palpitations, No problem reported, No see HPI Breast: No breast lump, No breast pain, No change in shape, No nipple discharge , No problem reported, No see HPI Abdomen: No GI bleeding, No constipation, No diarrhea, No nausea, No pain, No problem reported, No see HPI, No vomiting Musculoskeletal: No calf pain, No joint pain, No muscle pain, No problem reported, No see HPI, No swelling Female : No abnormal vaginal bleeding, No dysuria, No hematuria, No incontinence, No problem reported, No see HPI, No urinary frequency, No vaginal discharge Neurologic: No balance problems, No memory loss, No numbness/tingling, No paralysis, No problem reported, No see HPI, No vertigo, No weakness Psychiatric: No anhedonism, No anxiety, No depression symptoms, No insomnia, No problem reported, No see HPI, No substance abuse Heme: No abnormal bleeding/bruising, No clotting problems, No night sweats, No problem reported, No see HPI, No swollen lymph nodes Endo: No excessive thirst, No excessive urination, No fatigue, No problem reported, No see HPI Skin: No bleeding, No color change, No itch, No new/changing skin lesions, No problem reported, No rash, No see HPI Objective Vital Signs Date Time Temp Pulse Resp B/P Pulse Ox O2 Delivery O2 Flow Rate FiO2 05/19/16 16:00 Room Air 05/19/16 15:31 36.6 60 20 159/70 99 Room Air 05/19/16 12:43 36.5 58 20 133/75 99 Room Air 05/19/16 12:00 Room Air 05/19/16 09:15 129/79 104/67 05/19/16 08:29 36.6 69 20 127/74 96 Room Air 05/19/16 08:00 Room Air 05/19/16 04:02 Room Air 05/19/16 03:46 37.0 71 18 106/49 92 Room Air 05/19/16 01:40 Room Air 05/19/16 00:02 Room Air 05/18/16 23:48 37.0 67 18 116/51 96 Room Air 05/18/16 20:00 Room Air 05/18/16 20:00 Room Air 05/18/16 19:44 36.9 75 20 105/62 93 Room Air Physical Exam General Appearance: no apparent distress Eyes: normal inspection, EOMI ENT: normal ENT inspection, hearing grossly normal Neck: supple Respiratory/Chest: chest non-tender, lungs clear, normal breath sounds, no respiratory distress, no accessory muscle use Cardiovascular: regular rate, rhythm, no edema, no gallop, no JVD, no murmur Abdomen: normal bowel sounds, non tender, soft, no organomegaly Extremities: normal range of motion, non-tender, normal inspection, no pedal edema, no calf tenderness Neurologic/Psychiatric: portable machine cutter II-XII nml as tested, no motor/sensory deficits, alert, normal mood/affect, oriented x 3 Skin: normal color, warm/dry, no rash Lymphatic: no adenopathy Laboratory Results Last 24 Hours Test 05/18/16 18:35 05/18/16 20:16 05/19/16 01:47 05/19/16 03:00 Activated Partial Thromboplast Time 120.3 SECONDS 55.9 SECONDS Partial Thromboplastin Ratio 4.6 2.2 Bedside Glucose 151 mg/dl 163 mg/dl Prothrombin Time 12.2 SECONDS Prothromb Time International Ratio 1.1 Test 05/19/16 05:57 05/19/16 07:03 05/19/16 08:45 05/19/16 11:46 Bedside Glucose 145 mg/dl 231 mg/dl White Blood Count 8.95 K/uL Red Blood Count 4.57 M/uL Hemoglobin 14.1 g/dL Hematocrit 42.4 % Mean Corpuscular Volume 92.8 fL Mean Corpuscular Hemoglobin 30.9 pg Mean Corpuscular Hemoglobin Concent 33.3 g/dl Platelet Count 219 K/uL Mean Platelet Volume 11.6 fL Neutrophils (%) (Auto) 58.3 % Lymphocytes (%) (Auto) 28.8 % Monocytes (%) (Auto) 7.8 % Eosinophils (%) (Auto) 4.6 % Basophils (%) (Auto) 0.3 % Neutrophils # (Auto) 5.21 K/uL Lymphocytes # (Auto) 2.58 K/uL Monocytes # (Auto) 0.70 K/uL Eosinophils # (Auto) 0.41 K/uL Basophils # (Auto) 0.03 K/uL RDW Standard Deviation 47.6 fL RDW Coefficient of Variation 14.0 % Immature Granulocyte % (Auto) 0.2 % Immature Granulocyte # (Auto) 0.02 K/uL Sodium Level 140 mmol/L Potassium Level mmol/L 4.0 mmol/L Chloride Level 102 mmol/L Carbon Dioxide Level 29 mmol/L Anion Gap 9.0 mmol/L Blood Urea Nitrogen 55 mg/dl Creatinine 1.80 mg/dl Est Creatinine Clear Calc Drug Dose 32.5 ml/min Estimated GFR () 32.9 Estimated GFR (Non- 28.4 BUN/Creatinine Ratio 30.3 Random Glucose 168 mg/dl Estimated Average Glucose 171 mg/dl Hemoglobin A1c 7.6 % Calcium Level 8.8 mg/dl Phosphorus Level 4.6 mg/dl Magnesium Level mg/dl 1.8 mg/dl Total Bilirubin 0.4 mg/dl Aspartate Amino Transf (AST/SGOT) U/L 18 U/L Alanine Aminotransferase (ALT/SGPT) 23 U/L Alkaline Phosphatase 38 U/L Troponin I 0.032 ng/ml Total Protein 6.8 gm/dl Albumin 3.1 gm/dl Globulin 3.7 gm/dl Albumin/Globulin Ratio 0.8 Test 05/19/16 16:08 Bedside Glucose 146 mg/dl Assessment and Plan Sujata Rausch is a 66 year old female with PMHx of CAD S/P CABG X1 in 2004, DMII, HTN, CKD stage 2-3 and hypothyroidism on synthroid. ASSESSMENT: AF, RVR continue home metoprolol dose. STARTED ON IV amiodarone. currently rate controlled Amiodarone was stopped by slot router to avoid pulmonary toxicity currently on B norberto giving her high dano score she was started on heparin IV patient said that she likes to eat lots of green and would like a different AC, will place her on [place] and page Dr. King to inform him JAYLEN/CKD stage 2 will start some IVF hydration Hx of Coronary artery disease s/p CABG X1 and 2 stents Continue home metoprolol morbid Obesity / clinically suspected LILY. nocturnal study Type 2 diabetes mellitus. insulin requiring SSI Dyslipidemia. continue statin Hypertension. currently border line low pressure D/W Dr. King who recommended to saty on Coumadin due to valvular lesion.
[2016-05-19] MEDS: SODIUM CHLORIDE 0.9% 1000ML 1,000 ML IV SCH (18:00)
[2016-05-19] MEDS: WARFARIN SOD 5 MG TAB PO SCH (20:08)
[2016-05-19] MEDS ORDERED: AMIODARONE 200 MG TAB PO SCH (21:00)
[2016-05-19] MEDS ORDERED: APIXABAN 2.5 MG TAB PO SCH (21:00)
[2016-05-20] VITALS (7 sets, daily range): BP systolic 120–138; BP diastolic 49–73; PULSE 55–65; TEMP 36.5–36.7; O2SAT 95–97
[2016-05-20 02:41] LABS: PARTIAL THROMBOPLASTIN RATIO 3.1
[2016-05-20] MEDS: HEPARIN 25,000 UNIT/500ML D5W 500 ML IV PRN ×3 (03:50→09:20)
[2016-05-20] MEDS: LEVOTHYROXINE 137 MCG TAB PO SCH (06:19)
[2016-05-20 07:42] LABS: BASO % 0.5 %; BASO ABS # 0.04 K/uL (0-0.2); COMPLETE YES; EOS % 7.4 %; HEMATOCRIT 42.4 % (37-47); IG% 0.3 %; LYMPH % 25.7 %; LYMPH ABS # 1.94 K/uL (1.2-3.4); MEAN CELL VOLUME 91.4 fL (80-100); MEAN CORPUSCULAR HEMOGLOBIN 29.7 pg (25-34); MEAN CORPUSCULAR HGB CONC 32.5 g/dl (32-36); MEAN PLATELET VOLUME 11.4 fL (7.4-10.4); MONO % 11.6 %; NEUT % 54.5 %; PLATELET COUNT 242 K/uL (130-400); RED BLOOD COUNT 4.64 M/uL (4.2-5.4); WHITE BLOOD COUNT 7.56 K/uL (4.8-10.8)
[2016-05-20] MEDS: INSULIN ASPART 100 UNITS/ML 3 ML PEN SC SCH ×2 (08:00→12:06)
[2016-05-20 08:01] LABS: INR 1.1 (0.9-1.1); PARTIAL THROMBOPLASTIN RATIO 3.2; PROTHROMBIN TIME (PATIENT) 12.2 SECONDS (9.0-12.0)
[2016-05-20] MEDS: INSULIN HUMAN NPH SC SCH (08:01)
[2016-05-20] MEDS: ASPIRIN 81 MG ECTAB PO SCH (08:02)
[2016-05-20] MEDS: METOPROLOL TARTRATE 100 MG TAB PO SCH (08:04)
[2016-05-20 08:12] LABS: BUN/CREATININE RATIO 30.6 (10-20); CALCIUM 8.5 mg/dl (8.5-10.1); CREATININE 1.4 mg/dl (0.60-1.20); MAGNESIUM 1.9 mg/dl (1.8-2.4); POTASSIUM 4.3 mmol/L (3.5-5.1)
[2016-05-20 08:23] LABS: ALB/GLOB RATIO 0.9 (0.9-2); CHOLESTEROL/HDL RATIO 3.5
[2016-05-20] MEDS ORDERED: WARFARIN SOD 3 MG TAB PO SCH (09:15)
--- NOTE | 2016-05-20 09:54 | Pharmacy Progress Note ---
Glycemic Control: Progress Nt Date of Service May 20, 2016. Scope Glycemic Pharmacist consulted by Dr Means on 05/18/16 for glycemic control and to write orders per [facility] inpatient glycemic control protocol. Objective Accuchecks BSG (last 24hrs): Test 05/19/16 11:46 05/19/16 16:08 05/19/16 20:21 05/20/16 06:58 Bedside Glucose 231 mg/dl (70-90) 146 mg/dl (70-90) 156 mg/dl (70-90) 121 mg/dl (70-90) Test 05/20/16 07:23 Random Glucose 143 mg/dl (70-99) Laboratory Data (last 24hrs) Test 05/20/16 07:23 05/20/16 07:33 Anion Gap 9.0 mmol/L BUN/Creatinine Ratio 30.6 Blood Urea Nitrogen 43 mg/dl Creatinine 1.40 mg/dl Potassium Level 4.3 mmol/L Sodium Level 140 mmol/L White Blood Count 7.56 K/uL Red Blood Count 4.64 M/uL Hemoglobin 13.8 g/dL Hematocrit 42.4 % Mean Corpuscular Volume 91.4 fL Mean Corpuscular Hemoglobin 29.7 pg Mean Corpuscular Hemoglobin Concent 32.5 g/dl Platelet Count 242 K/uL Mean Platelet Volume 11.4 fL Neutrophils (%) (Auto) 54.5 % Lymphocytes (%) (Auto) 25.7 % Monocytes (%) (Auto) 11.6 % Eosinophils (%) (Auto) 7.4 % Basophils (%) (Auto) 0.5 % Neutrophils # (Auto) 4.12 K/uL Lymphocytes # (Auto) 1.94 K/uL Monocytes # (Auto) 0.88 K/uL Eosinophils # (Auto) 0.56 K/uL Basophils # (Auto) 0.04 K/uL HbA1c: Test 05/19/16 07:03 Hemoglobin A1c 7.6 % (4.5-5.6) H Recent Pertinent Medications Outpatient Anti-diabetic Regimen: * NPH 55 units SQ HS * Humalog SSI --> up to 150units/day The patient is currently receiving: * Basal insulin: NPH 25 units every 12 hours * Correctional Insulin: Novolog Correction per scale ACHS Goal Range: Low 110 mg/dL - High 140 mg/dL Correction Factor: 10 mg/dL/unit * Prandial insulin: Per carb ratio of 1 unit per 4 grams CHO consumed Risk Factors for Insulin Resistance: * IVF: Heparin drip mixed in dextrose * Diet: AHA/ type 2 diabetes - consuming an ave of 60 gm CHO with each meal Assessment & Plan ASSESSMENT: From 05/19/16 note: * 66yo T2DM female with adequate glycemic control on current regimen per recent A1c from January & updated A1c from this morning. * Pt uses up to 200 units of insulin per day per med rec * Suspect that patient may not need this much insulin while admitted d/t decreased PO intake/controlled CHO diet * Unsure of exactly what insulin needs will be therefore initial NPH ordered were dosed per BSG to prevent over/under dosing * Pt has received ~ 87 units of insulin over the past 24hrs with adequate glycemic control * Pt usually takes NPH once daily in the evening but had received half of her home dosing in the ED 05/18 AM. Adjusted orders accordingly yesterday and split basal insulin BID for admission. This is best to prevent hypo when pt status changes. BID dosing is more easily, and quickly, titratable. * Seems reasonable to continue SQ basal bolus insulin regimen based on an estimated total daily dose of ~ 100units/day * Will work NPH dosing from BID back to HS when closer to discharge. * ADA & AACE recommend a goal blood sugar range 140-180 mg/dl for the majority of critically ill & non-critically ill patients. However, more stringent targets may be selected in individual cases. Will utilize more stringent goal of 110-140mg/dl based on patient age, comorbidities, and tight glycemic control at baseline. 05/20/16 * Ms. Rausch received 99 units of insulin yesterday with BSGs ranging from 121- 231 mg/dL in the past 24 hours * BSGs are stable enough to continue current regimen * Do not anticipate discharge soon (INR still 1.1 today) so will not start the transition back to once daily NPH quite yet PLAN FOR INPATIENT GLYCEMIC CONTROL: * Continue NPH 25 units BID - start transitioning to once daily NPH once closer to discharge * Continue Novolog ACHS * Goal 110-140 mg/dL * CF 10 mg/dL/unit * CR 1 unit per 4 gm CHO consumed RECOMMENDATIONS FOR DISCHARGE: * Please refer to glycemic note on 05/19 * Please note that the plan above was derived based on current level of insulin resistance and hospital stress. These recommendations are appropriate for inpatient admission only. Plan of care upon discharge will need to be reassessed to avoid potential outpatient hypo/hyperglycemia. Thank you.
--- NOTE | 2016-05-20 10:56 | Cardiology Follow-Up ---
Subjective General Date of Service: May 20, 2016. Chief Complaint: follow up palpitations, AF Pt evaluation today including: conversation w/ patient, physical exam History of Present Illness The patient is a 66 year old female seen in follow up. Patient feels well. No additional AF on telemetry: has SR and SB in the 50's . Kidney function improved with creatine of 1.8 yesterday, 1.4 mg/dl today. Allergies Coded Allergies: Oxycodone (Verified Allergy, Mild, ITCHING ON BACK, 03/28/16) Blood-Group Specific Substance (Verified Allergy, Unknown, NO BLOOD PRODUCTS, 03/28/16) Iodinated Contrast Media (Verified Allergy, Unknown, TEARS AND FACE BECAME VERY REDDENED, 03/28/16) Diltiazem (Verified Adverse Reaction, Unknown, PAIN IN NECK, 03/28/16) Social History Smoking Status: Never Smoker Hx Tobacco Use In Past Year?: No Hx Alcohol Use - Type And Amou: No Hx Substance Use - Type And Am: No Problem List Medical Problems: (1) Cardiac arrhythmia Status: Acute (2) CHF (congestive heart failure) Status: Acute (3) Hyperglycemia Status: Acute (4) New onset a-fib Status: Acute (5) Right flank pain Status: Acute (6) Vomiting Status: Acute Physical Exam Vital Signs Last Vital Signs Documentation Date Time Temp Pulse Resp B/P Pulse Ox O2 Delivery O2 Flow Rate FiO2 05/20/16 08:15 36.5 55 20 120/49 95 Room Air Physical Exam Constitutional: Level of Distress: NAD Psychiatric: Mental Status: active & alert Neck: supple Lungs: Auscultation: no wheezing, no rales/crackles, no rhonchi Cardiovascular: Heart Auscultation: RRR, no murmurs, no rubs Extremities: no edema Neurologic: Gait & Station: pertinent finding (no focal deficits ) Assessment and Plan Assessment and Plan IMPRESSION: 66 year old female 1. AF, RVR-converted to SR on amiodarone infusion, AF episode was likely about 12 hours. 2. Mild to moderate mitral stenosis, stable echo 05/16, MG 5 mm Hg, MVA 2.1 cm 2. 3. Chronic CAD. 4. JYALEN, likely due to prerenal/ ATN from hemodynamic disturbance of transient AF RVR, hypotension-improved. RECOMMENDATIONS: EKG -SR at 80 bpm with IRBBB , LAFB pattern which is chronic. Stable for discharge to home on BREAKFA[employer] SERV[employer] dose of metoprolol tartrate 100 mg BID. Coumadin for stroke prophylaxis given [place], dose adjusted for kidney function. Continue ASA. DC clopidogrel. resume prior dose of chlorthalidone, lisinopril, Imdur. Will have pt follow up with [facility] antico[facility] [place]. Outpt cardio follow up with Dr Ceasar Galdamez within 1-2 weeks, or cardio PA, will contact office and make arrangements for these. Laboratory Results Last 24 Hours Test 05/19/16 11:46 05/19/16 16:08 05/19/16 20:21 05/20/16 01:55 Bedside Glucose 231 mg/dl 146 mg/dl 156 mg/dl Activated Partial Thromboplast Time 79.8 SECONDS Partial Thromboplastin Ratio 3.1 Test 05/20/16 06:58 05/20/16 07:23 05/20/16 07:33 05/20/16 09:00 Bedside Glucose 121 mg/dl Prothrombin Time 12.2 SECONDS Prothromb Time International Ratio 1.1 Activated Partial Thromboplast Time 83.0 SECONDS Partial Thromboplastin Ratio 3.2 Sodium Level 140 mmol/L Potassium Level 4.3 mmol/L Chloride Level 102 mmol/L Carbon Dioxide Level 29 mmol/L Anion Gap 9.0 mmol/L Blood Urea Nitrogen 43 mg/dl Creatinine 1.40 mg/dl Est Creatinine Clear Calc Drug Dose 42.2 ml/min Estimated GFR () 44.6 Estimated GFR (Non- 38.5 BUN/Creatinine Ratio 30.6 Random Glucose 143 mg/dl Calcium Level 8.5 mg/dl Phosphorus Level 4.0 mg/dl Magnesium Level 1.9 mg/dl Total Bilirubin 0.4 mg/dl Aspartate Amino Transf (AST/SGOT) 21 U/L Alanine Aminotransferase (ALT/SGPT) 23 U/L Alkaline Phosphatase 36 U/L Total Protein 6.7 gm/dl Albumin 3.2 gm/dl Globulin 3.5 gm/dl Albumin/Globulin Ratio 0.9 Triglycerides Level 181 mg/dl Cholesterol Level 153 mg/dl HDL Cholesterol 44 mg/dl LDL Cholesterol, Calculated 73 mg/dl VLDL Cholesterol, Calculated 36 mg/dl Cholesterol/HDL Ratio 3.5 White Blood Count 7.56 K/uL Red Blood Count 4.64 M/uL Hemoglobin 13.8 g/dL Hematocrit 42.4 % Mean Corpuscular Volume 91.4 fL Mean Corpuscular Hemoglobin 29.7 pg Mean Corpuscular Hemoglobin Concent 32.5 g/dl Platelet Count 242 K/uL Mean Platelet Volume 11.4 fL Neutrophils (%) (Auto) 54.5 % Lymphocytes (%) (Auto) 25.7 % Monocytes (%) (Auto) 11.6 % Eosinophils (%) (Auto) 7.4 % Basophils (%) (Auto) 0.5 % Neutrophils # (Auto) 4.12 K/uL Lymphocytes # (Auto) 1.94 K/uL Monocytes # (Auto) 0.88 K/uL Eosinophils # (Auto) 0.56 K/uL Basophils # (Auto) 0.04 K/uL RDW Standard Deviation 45.4 fL RDW Coefficient of Variation 13.7 % Immature Granulocyte % (Auto) 0.3 % Immature Granulocyte # (Auto) 0.02 K/uL
[2016-05-20] MEDS: SODIUM CHLORIDE 0.9% 1000ML 1,000 ML IV SCH (13:20)
[2016-05-20 14:43] LABS: PARTIAL THROMBOPLASTIN RATIO 2.2
[2016-05-20] MEDS ORDERED: INSHNI SC (14:50)
[2016-05-20] MEDS ORDERED: CMD5 PO (14:50)
--- NOTE | 2016-05-20 14:51 | Discharge Instructions ---
Discharge Instructions Admission Admission Date: May 18, 2016 at 12:43 Admission Diagnosis: Tachycardia. Discharge Care Plan - Problem: Medical Problems: (1) Cardiac arrhythmia (2) CHF (congestive heart failure) (3) New onset a-fib Care Plan - Goal(s): Improve function Care Plan - Instructions: Recommended Home Diet: AHA Phase I (2gmNa/LoCho), Type 2 Diabetes VTE Core Measure Inpt VTE Proph given/why not?: Warfarin (Coumadin) Laboratory Results Test Results: Hemoglobin A1c Test 05/19/16 07:03 Range/Units Estimated Average Glucose 171 mg/dl Hemoglobin A1c 7.6 H 4.5-5.6 % Lipid Panel Test 05/20/16 07:23 Range/Units Triglycerides Level 181 H 0-150 mg/dl Cholesterol Level 153 0-200 mg/dl HDL Cholesterol 44 mg/dl Cholesterol/HDL Ratio 3.5 LDL Cholesterol, Calculated 73 mg/dl Kieran Stark Recommendations: Call your doctor if: * Temperature above 101 degrees * Pain not relieved by pain medicine ordered * There is increased drainage or redness from any incision * You have any unanswered questions or concerns. Your Doctors Instructions noted above were prepared by provider Manuel Arizmendi.
[2016-05-20] MEDS ORDERED: ENOX120I SQ (14:53)
[2016-05-20] MEDS ORDERED: ENOXAPARIN 1 MG/KG SQ SCH (15:15)
[2016-05-20] MEDS ORDERED: NURSING VERBAL MED ORDER ONE (15:30)
[2016-05-20] MEDS ORDERED: ENOXAPARIN 120 MG/0.8 ML SYR SQ SCH (16:00)
[2016-05-20] MEDS: WARFARIN SOD 5 MG TAB PO SCH (16:05)
--- NOTE | 2016-05-20 20:09 | Discharge Summary ---
Discharge Summary Date of Service May 20, 2016. Discharge Summary Admission Date: May 18, 2016 at 12:43 Discharge Date: May 20, 2016 Discharge Disposition: Home Principal Diagnosis: New onset A fib Problems/Secondary Diagnoses: Afib with RVR Immunizations: Have You Had Influenza Vaccine: Yes Influenza Vaccine Date: Dec 20, 2010 History of Tetanus Vaccine?: UTD History of Pneumococcal: Yes History of Hepatitis B Vaccine: No Medication Reconciliation New Medications: Enoxaparin (Lovenox) 120 Mg/0.8 Ml Inj 100 MG SQ Q24H for 7 Days, #7 SYR Warfarin Sod (Coumadin) 5 Mg Tab 5 MG PO DAILY@16 for 30 Days, #30 TAB Changed Medications: Insulin Human NPH (Humulin N) 100 Units/Ml Susp 25 UNITS SC HS for 30 Days, #1 VIAL (Changed from: 55 UNITS) Continued Medications: Aspirin (Aspirin Ec) 81 Mg Tab 81 MG PO DAILY Atorvastatin (Lipitor) 40 Mg Tab 40 MG PO DAILY, TAB Cholecalciferol (Vitamin D3) 2,000 Unit Tab 2000 UNITS PO DAILY Fenofibrate (Tricor) 160 Mg Tab 160 MG PO DAILY Insulin Lispro (Human) (Humalog) 100 Unit/Ml Inj 1 DOSE SC DIRECTED PER SLIDING SCALE UP TO 150 UNITS DAILY Isosorbide Mononitrate Ext Rel (Imdur Ext Rel) 30 Mg Ertab 60 MG PO QAM, 0 Refills Levothyroxine Sodium (Levothyroxine Sodium) 137 Mcg Tab 137 MCG PO QAM TAKE EVERY MORNING WITH A FULL GLASS OF WATER ON EMPTY STOMACH. WAIT 30 MINS TO EAT, DRINK OR TAKE OTHER MEDS Lisinopril (Zestril) 40 Mg Tab 40 MG PO DAILY, TAB Metoprolol Tartrate (Lopressor) (Lopressor) 100 Mg Tab 100 MG PO BID, 0 Refills Multivitamin (Multivitamin) Tab 1 TABLET PO DAILY, 0 Refills Discontinued Medications: Chlorthalidone (Hygroton) 25 Mg Tab 25 MG PO DAILY Clopidogrel (Plavix) 75 Mg Tab 75 MG PO DAILY, 0 Refills Fish Oil (Douglas-3) 1 Ea Cap 1200 MG PO DAILY, 0 Refills Discharge Exam Review of Systems: Constitutional: No chills, No fatigue, No fever, No problem reported, No sweats, No weakness, No weight loss Eyes: No diplopia, No discharge, No eye pain, No problem reported, No redness, No worsening of vision ENT: No dental problems, No hearing loss, No nasal symptoms, No problem reported, No sore throat, No tinnitus, No trouble swallowing, No unusual epistaxis Respiratory: No cough, No dyspnea at rest, No dyspnea on exertion, No hemoptysis, No problem reported, No shortness of breath, No sputum, No wheezing Cardiovascular: No PND, No chest pain, No claudication, No edema, No orthopnea, No palpitations, No problem reported Abdomen: No GI bleeding, No constipation, No diarrhea, No nausea, No pain, No problem reported, No vomiting Musculoskeletal: No calf pain, No joint pain, No muscle pain, No problem reported, No swelling Genitourinary - Female: No dysmenorrhea, No dysuria, No hematuria, No menorrhagia, No metrorrhagia, No , No problem reported, No rash, No urinary frequency, No urinary incontinence, No urinary retention, No urinary urgency, No vaginal bleeding, No vaginal discharge, No vaginal itching, No vulvodynia Genitourinary - Male: No dysuria, No hematuria, No impotence, No lesions, No penile discharge, No problem reported, No urinary frequency, No urinary hesitancy, No urinary incontinence, No urinary retention, No urinary urgency Neurologic: No balance problems, No memory loss, No numbness/tingling, No paralysis, No problem reported, No vertigo, No weakness Psychiatric: No anhedonism, No anxiety, No depression symptoms, No insomnia , No problem reported, No substance abuse Endocrine: No excessive thirst, No excessive urination, No fatigue, No problem reported Hematologic / Lymphatic: No abnormal bleeding/bruising, No clotting problems , No night sweats, No problem reported, No swollen lymph nodes Integumentary: No bleeding, No color change, No itch, No new/changing skin lesions, No problem reported, No rash Physical Exam: Eyes: normal inspection, EOMI ENT: normal ENT inspection, hearing grossly normal, pharynx normal Neck: supple Respiratory/Chest: chest non-tender, lungs clear, normal breath sounds, no respiratory distress, no accessory muscle use Cardiovascular: regular rate, rhythm, no edema, no gallop, no JVD, no murmur Abdomen / GI: normal bowel sounds, non tender, soft, no organomegaly, no pulsatile mass, normal rectal exam Extremities: normal inspection, no calf tenderness, normal capillary refill , no pedal edema 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 presented to Ed with an episode of Dizziness and palpitation found to have AF, RVR, new diagnosis continued home metoprolol dose. blood pressure was border line low warp tension tester was consulted and started her on IV amiodarone. after rate was controlled, amiodarone was stopped to avoid lung toxicity, especially she was controlled on metoprolol alone.giving her high dano score she was started on heparin IV then coumadin (echo showed mitral stenosis so other options for AC were eliminated ), upon discharge she was bridged with lovenox sleep O2 study was done and showed hypoxia, so she was discharged on nocturnal O2 will follow up with Dr. King as an out patient Total Time Spent: Greater than 30 minutes This includes examination of the patient, discharge planning, medication reconciliation, and communication with other providers. Discharge Instructions Please refer to the electronic Patient Visit Report (Discharge Instructions) for additional information.
== END 2016-05-20 16:41 | disposition home or self-care (01) | DRG 308 ==
LOC: ENRESERVTM → ENRESERVDT → EDBD 08:04 → C.EDA 08:05 → C.2T 12:43
PROVIDERS: ADMIT Internal Medicine; ATTEND Internal Medicine
DX: I48.91 Unspecified atrial fibrillation (principal); N17.0 Acute kidney failure with tubular necrosis; I13.0 Hypertensive heart and chronic kidney disease with heart failure and stage 1 through stage 4 chronic kidney disease, or unspecified chronic kidney disease; I25.10 Atherosclerotic heart disease of native coronary artery without angina pectoris; E03.9 Hypothyroidism, unspecified; E78.5 Hyperlipidemia, unspecified; G47.33 Obstructive sleep apnea (adult) (pediatric); N18.3 Chronic kidney disease, stage 3 (moderate); E66.01 Morbid (severe) obesity due to excess calories; I95.9 Hypotension, unspecified; E11.22 Type 2 diabetes mellitus with diabetic chronic kidney disease; I50.9 Heart failure, unspecified; R09.02 Hypoxemia; I05.0 Rheumatic mitral stenosis; I25.2 Old myocardial infarction; Z95.1 Presence of aortocoronary bypass graft; Z95.5 Presence of coronary angioplasty implant and graft; Z79.82 Long term (current) use of aspirin; Z79.02 Long term (current) use of antithrombotics/antiplatelets; Z79.899 Other long term (current) drug therapy; Z79.4 Long term (current) use of insulin

== ENCOUNTER → 2016-11-12 | Outpatient (CLI) | payer OTHER ==
[~2016-11-12] MED LIST changes: -ASPEC81 PO; +ASPI81TA28 PO; -CHOL100010 PO; +CHOL20007 PO; -CLOP1TAB15 PO; +CMD5 PO; -FENO145T26 PO; +FENO160T PO; +INSHNI SC; +INSHNI SQ; +INSU100I SC; -INSUINJ SQ; -INSUINJ14 SC; +MONT1TAB5 PO; -OMEG10007 PO; +OMEG5CAP PO; +OXGN; -SNG10 PO; +WARF5TAB90 PO
[2016-11-12 10:40] LABS: HEMATOCRIT 43.3 % (37-47); MEAN CELL VOLUME 94.3 fL (80-100); MEAN CORPUSCULAR HEMOGLOBIN 29.4 pg (25-34); MEAN CORPUSCULAR HGB CONC 31.2 g/dl (32-36); PLATELET COUNT 242 K/uL (130-400); RED BLOOD COUNT 4.59 M/uL (4.2-5.4); WHITE BLOOD COUNT 7.19 K/uL (4.8-10.8)
[2016-11-12 10:57] LABS: ESTIMATED AVERAGE GLUCOSE 148 mg/dl; HA1C FLAG Normal (Normal)
[2016-11-12 10:58] LABS: BLOOD UREA NITROGEN 26 mg/dl (7-18); BUN/CREATININE RATIO 23.5 (10-20); CALCIUM 9.1 mg/dl (8.5-10.1); CARBON DIOXIDE 31 mmol/L (21-32); CHLORIDE 103 mmol/L (98-107); GLUCOSE 216 mg/dl (70-99); POTASSIUM 4.4 mmol/L (3.5-5.1); SODIUM 140 mmol/L (136-145)
[2016-11-12 10:59] LABS: PHOSPHORUS 3.1 mg/dl (2.5-4.9)
[2016-11-12 11:01] LABS: URINE APPEARANCE CLEAR (CLEAR); URINE BILIRUBIN NEG (NEG); URINE COLOR YELLOW; URINE EPITHELIAL CELL AUTO 20-30 /lpf (0-5); URINE NITRITE NEG (NEG); URINE PH 6.5 (4.5-7.5); URINE SPECIFIC GRAVITY 1.021 (1.000-1.030); UROBILINOGEN NEG (NEG)
[2016-11-12 11:03] LABS: MANUAL MICROSCOPIC REQUIRED? NO; REVIEW REQ? NO
[2016-11-12 11:16] LABS: THYROID STIMULATING HORMONE 2.22 uIu/ml (0.300-4.500)
[2016-11-12 11:19] LABS: URINE PROTIEN/CREAT RATIO 0.2 (0-0.2); URINE TOTAL PROTEIN 17.7 mg/dl (0-11.9)
== END | disposition home or self-care (01) ==
LOC: C.LAB1850 08:58
PROVIDERS: ATTEND Internal Medicine Nephrology
DX: E03.9 Hypothyroidism, unspecified (principal); I12.9 Hypertensive chronic kidney disease with stage 1 through stage 4 chronic kidney disease, or unspecified chronic kidney disease; N18.3 Chronic kidney disease, stage 3 (moderate); R80.9 Proteinuria, unspecified; E55.9 Vitamin D deficiency, unspecified; E11.21 Type 2 diabetes mellitus with diabetic nephropathy

== ENCOUNTER 2016-11-16 22:51 | Emergency (ER) | payer OTHER ==
[~2016-11-16] VITALS: Ht 152.4 cm; Wt 110.0 kg
[~2016-11-16 22:51] MED LIST changes: -INSHNI SQ; -MONT1TAB5 PO; -OMEG5CAP PO; -OXGN; -WARF5TAB90 PO
[2016-11-16 22:54] VITALS: TEMP 37.1; Ht 152.4 cm; Wt 110.0 kg
[2016-11-16] MEDS ORDERED: SODIUM CHLORIDE 0.9% 1000ML 1,000 ML IV STA (23:23)
[2016-11-16 23:33] LABS: BASO % 0.2 %; BASO ABS # 0.02 K/uL (0-0.2); COMPLETE YES; EOS % 3.6 %; HEMATOCRIT 42.2 % (37-47); IG% 0.4 %; LYMPH % 20.1 %; LYMPH ABS # 2.36 K/uL (1.2-3.4); MEAN CELL VOLUME 91.7 fL (80-100); MEAN CORPUSCULAR HEMOGLOBIN 29.8 pg (25-34); MEAN CORPUSCULAR HGB CONC 32.5 g/dl (32-36); MEAN PLATELET VOLUME 10.8 fL (7.4-10.4); MONO % 9.5 %; NEUT % 66.2 %; PLATELET COUNT 276 K/uL (130-400); WHITE BLOOD COUNT 11.77 K/uL (4.8-10.8)
[2016-11-16] MEDS ORDERED: OMEG5CAP PO (23:36)
[2016-11-16] MEDS ORDERED: MONT1TAB5 PO (23:37)
[2016-11-16] MEDS ORDERED: WARF5TAB90 PO (23:39)
[2016-11-16] MEDS ORDERED: OXGN (23:41)
[2016-11-16] MEDS ORDERED: INSHNI SQ (23:41)
[2016-11-16 23:48] LABS: INR 2.8 (0.9-1.1); PARTIAL THROMBOPLASTIN RATIO 1.5; PROTHROMBIN TIME (PATIENT) 31.5 SECONDS (9.0-12.0)
[2016-11-16 23:53] LABS: URINE APPEARANCE CLEAR (CLEAR); URINE BILIRUBIN NEG (NEG); URINE COLOR YELLOW; URINE EPITHELIAL CELL AUTO >30 /lpf (0-5); URINE NITRITE NEG (NEG); URINE SPECIFIC GRAVITY 1.008 (1.000-1.030); UROBILINOGEN NEG (NEG); ZZUR CULT IF INDIC CLEAN CATCH NO
[2016-11-16 23:59] LABS: ALKALINE PHOSPHATASE 53 U/L (45-117); ALT/SGPT 24 U/L (12-78); AST/SGOT 25 U/L (15-37); BLOOD UREA NITROGEN 22 mg/dl (7-18); BUN/CREATININE RATIO 22.1 (10-20); CALCIUM 8.6 mg/dl (8.5-10.1); CARBON DIOXIDE 29 mmol/L (21-32); CHLORIDE 105 mmol/L (98-107); GLUCOSE 119 mg/dl (70-99); POTASSIUM 3.9 mmol/L (3.5-5.1); SODIUM 141 mmol/L (136-145)
[2016-11-17 00:08] LABS: MANUAL MICROSCOPIC REQUIRED? NO; REVIEW REQ? NO
[2016-11-17 00:25] VITALS: O2SAT 96
[2016-11-17 01:05] VITALS: BP 182/65; PULSE 73
--- NOTE | 2016-11-17 01:06 | EMERGENCY ROOM VISIT NOTE ---
History Report prepared by Julianna: Skip Lewis Under the Supervision of: Dr. Uzma Murrell M.D. First contact with patient: 23:14 Chief Complaint: ABDOMINAL PAIN Stated Complaint: BULGING STOMACH,SOME PAIN History of Present Illness The patient is a 66 year old female who presents to the Emergency Room with complaints of constant lower abdominal pain beginning yesterday. The patient states that she has noticed a "bulge" on her lower stomach as well. She has been able to successfully pass gas. She denies any urinary symptoms, vomiting, or diarrhea. The patient notes that she was started on Coumadin six months ago for a-fib. She has a history of CHF, diabetes and HTN. Source of History: patient Onset: Yesterday Position: abdomen (lower) Quality: other ("bulge" with pain) Timing: constant Associated Symptoms: No vomiting, No diarrhea, No urinary symptoms Review of Systems See HPI for pertinent positives & negatives. A total of 10 systems reviewed and were otherwise negative. Past Medical & Surgical Medical Problems: (1) Diab Enma Wo Compl, Type Ii Or Unspec Type, Not Uncntrld (2) Hypertension Nos (3) Old Myocardial Infarct (4) Percutaneous Translum Coron Angioplasty Status (5) Pure Hypercholesterolem (6) Pyelonephritis (7) Tachycardia (8) Vertigo Family History Diabetes mellitus FHx: cancer FHx: gallbladder disease FHx: heart disease Hypertension Kidney disease Kidney stones Seizures Social History Smoking Status: Never Smoker Alcohol Use: none Marital Status: Occupation Status: retired Current/Historical Medications Scheduled Aspirin (Aspirin Ec), 81 MG PO DAILY Atorvastatin (Lipitor), 40 MG PO DAILY Cholecalciferol (Vitamin D3), 2,000 UNITS PO DAILY Fenofibrate (Tricor), 160 MG PO DAILY Home O2 Therapy (Oxygen), 2 LITERS NA HS Insulin Human NPH (Humulin N), 1 DOSE SQ UD Insulin Lispro (Human) (Humalog), 1 DOSE SC DIRECTED Isosorbide Mononitrate Ext Rel (Imdur Ext Rel), 60 MG PO QAM Levothyroxine Sodium (Levothyroxine Sodium), 137 MCG PO QAM Lisinopril (Zestril), 40 MG PO DAILY Metoprolol Tartrate (Lopressor) (Lopressor), 100 MG PO BID Montelukast Sodium (Montelukast Sodium), 1 TAB PO DAILY Multivitamin (Multivitamin), 1 TABLET PO DAILY De Lancey-3 Fatty Acids (Fish Oil 1200 mg), 4 CAP PO DAILY Warfarin Sodium (Coumadin), 5 MG PO UD Allergies Coded Allergies: Oxycodone (Verified Allergy, Mild, ITCHING ON BACK, 11/16/16) Blood-Group Specific Substance (Verified Allergy, Unknown, NO BLOOD PRODUCTS, 11/16/16) Iodinated Contrast Media (Verified Allergy, Unknown, TEARS AND FACE BECAME VERY REDDENED, 11/16/16) Diltiazem (Verified Adverse Reaction, Unknown, PAIN IN NECK, 11/16/16) Physical Exam Vital Signs Date Time Temp Pulse Resp B/P (MAP) Pulse Ox O2 Delivery O2 Flow Rate FiO2 11/17/16 01:05 73 18 182/65 Room Air 11/17/16 00:25 79 23 96 11/16/16 23:57 80 11/16/16 23:55 83 24 97 11/16/16 23:50 81 18 198/75 94 Room Air 11/16/16 22:54 37.1 89 16 208/87 96 Room Air Physical Exam Vital signs reviewed. General: Well-appearing female, in no significant distress. HEENT: No scleral icterus, PERRLA, neck supple. Atraumatic. Cardiovascular: Regular rate and rhythm, no extra sounds. Pulmonary: Clear to auscultation bilaterally, normal work of breathing. Abdomen: Obese, soft, nontender, nondistended, positive bowel sounds. Large pannus with yeast dermatitis to the abdominal skin fold. Musculoskeletal: Atraumatic, no peripheral edema. Neurologic: Patient awake alert and oriented x 3. Skin: Warm, dry, no rash Medical Decision & Procedures ER Provider Diagnostic Interpretation: CT results per statrad and my review. CT ABDOMEN & PELVIS: Stranding in the pelvis, predominately around the bladder. Could be from cystitis. Inflammation related to urachal remnant not excluded. Nonobstructing left renal stone Cholelithiasis. No evidence of acute diverticulitis colitis or bowel obstruction. Appendix not identified. Bulbous adnexa. Subcutaneous edema in the back. Dermal and subcutaneous thickening in the anterior abdominal wall. Mild air trapping in lung bases. Cardiomegaly and surgical changes. Laboratory Results 11/16/16 23:15 Red Blood Count 4.60, Mean Corpuscular Volume 91.7, Mean Corpuscular Hemoglobin 29.8, Mean Corpuscular Hemoglobin Concent 32.5, Mean Platelet Volume 10.8, Neutrophils (%) (Auto) 66.2, Lymphocytes (%) (Auto) 20.1, Monocytes (%) (Auto) 9.5, Eosinophils (%) (Auto) 3.6, Basophils (%) (Auto) 0.2, Neutrophils # (Auto) 7.80, Lymphocytes # (Auto) 2.36, Monocytes # (Auto) 1.12, Eosinophils # (Auto) 0.42, Basophils # (Auto) 0.02 11/16/16 23:15 Test 11/16/16 23:10 11/16/16 23:15 Urine Color YELLOW Urine Appearance CLEAR (CLEAR) Urine pH 7.0 (4.5-7.5) Urine Specific [place] 1.008 (1.000-1.030) Urine Protein NEG (NEG) Urine Glucose (UA) NEG (NEG) Urine Ketones NEG (NEG) Urine Occult Blood NEG (NEG) Urine Nitrite NEG (NEG) Urine Bilirubin NEG (NEG) Urine Urobilinogen NEG (NEG) Urine Leukocyte Esterase TRACE (NEG) Urine WBC (Auto) 1-5 /hpf (0-5) Urine RBC (Auto) 0-4 /hpf (0-4) Urine Hyaline Casts (Auto) 1-5 /lpf (0-5) Urine Epithelial Cells (Auto) >30 /lpf (0-5) Urine Bacteria (Auto) NEG (NEG) White Blood Count 11.77 K/uL (4.8-10.8) Red Blood Count 4.60 M/uL (4.2-5.4) Hemoglobin 13.7 g/dL (12.0-16.0) Hematocrit 42.2 % (37-47) Mean Corpuscular Volume 91.7 fL (80-100) Mean Corpuscular Hemoglobin 29.8 pg (25-34) Mean Corpuscular Hemoglobin Concent 32.5 g/dl (32-36) Platelet Count 276 K/uL (130-400) Mean Platelet Volume 10.8 fL (7.4-10.4) Neutrophils (%) (Auto) 66.2 % Lymphocytes (%) (Auto) 20.1 % Monocytes (%) (Auto) 9.5 % Eosinophils (%) (Auto) 3.6 % Basophils (%) (Auto) 0.2 % Neutrophils # (Auto) 7.80 K/uL (1.4-6.5) Lymphocytes # (Auto) 2.36 K/uL (1.2-3.4) Monocytes # (Auto) 1.12 K/uL (0.11-0.59) Eosinophils # (Auto) 0.42 K/uL (0-0.5) Basophils # (Auto) 0.02 K/uL (0-0.2) RDW Standard Deviation 45.8 fL (36.4-46.3) RDW Coefficient of Variation 13.8 % (11.5-14.5) Immature Granulocyte % (Auto) 0.4 % Immature Granulocyte # (Auto) 0.05 K/uL (0.00-0.02) Prothrombin Time 31.5 SECONDS (9.0-12.0) Prothromb Time International Ratio 2.8 (0.9-1.1) Activated Partial Thromboplast Time 38.8 SECONDS (21.0-31.0) Partial Thromboplastin Ratio 1.5 Anion Gap 7.0 mmol/L (3-11) Est Creatinine Clear Calc Drug Dose 60.6 ml/min Estimated GFR () 67.0 Estimated GFR (Non- 57.8 BUN/Creatinine Ratio 22.1 (10-20) Calcium Level 8.6 mg/dl (8.5-10.1) Total Bilirubin 0.5 mg/dl (0.2-1) Direct Bilirubin mg/dl (0-0.2) Aspartate Amino Transf (AST/SGOT) 25 U/L (15-37) Alanine Aminotransferase (ALT/SGPT) 24 U/L (12-78) Alkaline Phosphatase 53 U/L (45-117) Total Protein 7.2 gm/dl (6.4-8.2) Albumin 3.1 gm/dl (3.4-5.0) Chemistry Specimen Hemolysis Laboratory results per my review. Medications Administered Medications (Trade) Dose Ordered Sig/Mario Route Start Time Stop Time Status Last Admin Dose Admin Sodium Chloride 1,000 ml @ 125 mls/hr Q8H STAT IV 11/16/16 23:23 11/17/16 02:16 DC 11/16/16 23:49 125 MLS/HR ED Course 2319: Past medical records reviewed. The patient was evaluated in room C11B. A complete history and physical examination was performed. 2323: Ordered Sodium Chloride 1000 ml @ 125 mls/hr IV. 0105: Upon reevaluation, the patient appeared to have improvement of her symptoms. I discussed findings with her. She verbalized agreement of the treatment plan. The patient was discharged home. Medical Decision Differential diagnosis: Etiologies such as appendicitis, diverticulitis, PUD, biliary pathology, UTI, pancreatitis, obstruction, mesenteric ischemia, aortic pathology, infections, inflammatory bowel disease, renal colic, as well as others were entertained. This patient was evaluated and appeared to be in no significant distress. IV access was obtained and laboratory work was drawn. Patient was hydrated with normal saline solution. Given the large amount of abdominal wall fat, imaging was required as my exam was limited. CT scan abdomen and pelvis was performed and reveals no evidence of abdominal wall hernia. There is stranding around the bladder however the urinalysis is negative. Patient's laboratory work is fairly unrevealing. The patient was informed of the findings. There is some induration of the abdominal wall consistent with previous Lovenox injections. The patient was advised to follow-up with her PCP for reevaluation and to return to the ER for worsening of symptoms or any medical concerns. Medication Reconcilliation Current Medication List: was personally reviewed by me Blood Pressure Screening Patient's blood pressure: Elevated blood pressure Blood pressure disposition: Referred to PCP Impression Primary Impression: Abdominal pain, left lower quadrant Scribe Attestation The scribe's documentation has been prepared under my direction and personally reviewed by me in its entirety. I confirm that the note above accurately reflects all work, treatment, procedures, and medical decision making performed by me. Departure Information Dispostion Home / Self-Care Referrals No Doctor, Assigned (PCP) Forms HOME CARE DOCUMENTATION FORM, IMPORTANT VISIT INFORMATION Patient Instructions My [facility] Additional Instructions Diagnosis: Abdominal pain Follow up with your doctor this week for reevaluation. Return to the ED for worsening of symptoms or any medical concerns.
--- NOTE | 2016-11-17 06:50 | DIAGNOSTIC IMAGING REPORT ---
CT SCAN OF THE ABDOMEN AND PELVIS WITHOUT CONTRAST CLINICAL HISTORY: Left lower quadrant abdominal pain COMPARISON STUDY: 03/28/2016 TECHNIQUE: CT scan of the abdomen and pelvis was performed from the lung bases to the proximal femurs. Images are reviewed in the axial, sagittal, and coronal planes. IV contrast was not administered for this examination. A dose lowering technique was utilized adhering to the principles of ALARA. CT DOSE: 1024.76 mGycm FINDINGS: Lower chest: The heart is normal in size and configuration, without pericardial effusion. The lung bases and pleural spaces are clear. Liver: The unenhanced liver is normal in size, contour, and attenuation. There is no intrahepatic biliary ductal dilatation. Gallbladder: Cholelithiasis Spleen: Normal in size and attenuation. Pancreas: Unremarkable. Adrenal glands: Unremarkable. Kidneys: No renal, ureteral, or bladder calculi are visualized. A left renal calcifications likely vascular Bowel: There are no transition zones indicate bowel obstruction. There is no acute diverticulitis. There are no findings to indicate acute appendicitis. Peritoneum: There is no intraperitoneal free air or abdominal ascites. There is mild pre and supravesical fat stranding. There is small fat-containing umbilical hernia. Vasculature: The abdominal aorta is normal in course and caliber. Adenopathy: None. Pelvic viscera: The bladder, and pelvic viscera are unremarkable. Skeletal structures: There is infiltration of the subcutaneous fat of both anterolateral abdominal watt IMPRESSION: 1. No evidence of bowel obstruction. No evidence of free air 2. No evidence of acute appendicitis. No evidence of acute diverticulitis 3. Cholelithiasis 4. Infiltration of the pelvic fat anterior and superior to the bladder. This could represent a cystitis or inflammation related to the urachal remnant 5. Small fat-containing umbilical hernia 6. Infiltration of the subcutaneous fat involving the anterior abdominal wall bilaterally Electronically signed by: Brock Fox M.D. 11/17/2016 6:49 AM Dictated Date/Time: 11/17/2016 6:44 AM
== END 2016-11-17 01:15 | disposition home or self-care (01) ==
LOC: C.EDB 22:53 → C.EDC 11-17 01:15
DX: R10.32 Left lower quadrant pain (principal); I10 Essential (primary) hypertension; E11.9 Type 2 diabetes mellitus without complications; E78.00 Pure hypercholesterolemia, unspecified; I25.2 Old myocardial infarction; Z98.61 Coronary angioplasty status; Z87.440 Personal history of urinary (tract) infections; Z79.4 Long term (current) use of insulin; Z79.01 Long term (current) use of anticoagulants; Z79.82 Long term (current) use of aspirin; Z79.899 Other long term (current) drug therapy; Z88.5 Allergy status to narcotic agent; Z88.8 Allergy status to other drugs, medicaments and biological substances; Z91.041 Radiographic dye allergy status; Z83.3 Family history of diabetes mellitus; Z80.9 Family history of malignant neoplasm, unspecified; Z83.79 Family history of other diseases of the digestive system; Z82.49 Family history of ischemic heart disease and other diseases of the circulatory system; Z84.1 Family history of disorders of kidney and ureter; Z82.0 Family history of epilepsy and other diseases of the nervous system

== ENCOUNTER → 2017-05-13 | Outpatient (CLI) | payer OTHER ==
[~2017-05-13] MED LIST changes: -CMD5 PO; -INSHNI SC; +INSHNI SQ; +MONT1TAB5 PO; +OMEG5CAP PO; +OXGN; +WARF5TAB90 PO
== END | disposition home or self-care (01) ==
LOC: C.LAB1850 11:44
PROVIDERS: ATTEND Nurse Practitioner Family
DX: E11.9 Type 2 diabetes mellitus without complications (principal)

== ENCOUNTER → 2017-05-16 | Outpatient (CLI) | payer OTHER ==
[2017-05-16 12:21] LABS: HEMATOCRIT 43.2 % (37-47); MEAN CELL VOLUME 95.8 fL (80-100); MEAN CORPUSCULAR HGB CONC 32.4 g/dl (32-36); MEAN PLATELET VOLUME 11.2 fL (7.4-10.4); PLATELET COUNT 338 K/uL (130-400); RED CELL DISTRIBUTION WIDTH CV 14.4 % (11.5-14.5); RED CELL DISTRIBUTION WIDTH SD 50.5 fL (36.4-46.3); WHITE BLOOD COUNT 9.85 K/uL (4.8-10.8)
[2017-05-16 12:45] LABS: ALBUMIN 3.1 gm/dl (3.4-5.0); BLOOD UREA NITROGEN 27 mg/dl (7-18); CALCIUM 9.1 mg/dl (8.5-10.1); CARBON DIOXIDE 30 mmol/L (21-32); CREATININE 1.13 mg/dl (0.60-1.20); GLUCOSE 190 mg/dl (70-99); POTASSIUM 4.3 mmol/L (3.5-5.1); SODIUM 139 mmol/L (136-145)
[2017-05-16 12:55] LABS: PHOSPHORUS 3.6 mg/dl (2.5-4.9)
== END | disposition home or self-care (01) ==
LOC: C.LAB1850 10:33
PROVIDERS: ATTEND Internal Medicine Nephrology
DX: I12.9 Hypertensive chronic kidney disease with stage 1 through stage 4 chronic kidney disease, or unspecified chronic kidney disease (principal); N18.3 Chronic kidney disease, stage 3 (moderate); R80.9 Proteinuria, unspecified; E11.9 Type 2 diabetes mellitus without complications; E55.9 Vitamin D deficiency, unspecified; E03.9 Hypothyroidism, unspecified

== ENCOUNTER 2017-07-09 08:32 | Emergency (ER) | payer OTHER ==
[~2017-07-09] VITALS: Ht 152.4 cm; Wt 107.0 kg
[2017-07-09 08:37] VITALS: TEMP 36.7; Ht 152.4 cm; Wt 107.0 kg
--- NOTE | 2017-07-09 09:11 | EMERGENCY ROOM VISIT NOTE ---
History Report prepared by Julianna: Phil Isbell Under the Supervision of: Dr. Baldev Montague M.D. First contact with patient: 08:42 Chief Complaint: LEG PAIN,LEG INJURY Stated Complaint: PAIN IN LEGS History of Present Illness The patient is a 67 year old female who presents to the Emergency Room with complaints of constant bilateral leg pain that began 18 days ago after she took a trip from [place] via car. Patient states that the pain is worse in her right leg than in her left. Patient states that the pain is located from her hip down to her ankle. Patient describes the pain as a "burning". She states that the pain is worsened when she lies down. Patient adds that she has lower back pain. Patient denies a history of blood clots or back problems. She states that she has a history of an "artery blockage" in her right leg. Patient adds that she is on aspirin, Plavix, and Warfarin. She states that she has a history of a heart bypass surgery and 2 stents. Patient states that she has not seen her family doctor for her leg pain but has an appointment with them in 2 days. Patient denies fevers, numbness, weakness, urinary symptoms, chest pain, leg swelling, shortness of breath, or any recent injuries. Source of History: patient, family Onset: 18 days ago Position: leg (bilateral) Quality: burning Timing: constant Modifying Factors (Worsening): other (Lying down) Modifying Factors (Relieving): other (None) Associated Symptoms: + back pain (Lower), + weakness, No fevers, No chest pain, No SOB, No urinary symptoms, No numbness Note: Patient denies leg swelling. Review of Systems See HPI for pertinent positives & negatives. A total of 10 systems reviewed and were otherwise negative. Past Medical & Surgical Medical Problems: (1) Diab Enma Wo Compl, Type Ii Or Unspec Type, Not Uncntrld (2) Hypertension Nos (3) Old Myocardial Infarct (4) Percutaneous Translum Coron Angioplasty Status (5) Pure Hypercholesterolem (6) Pyelonephritis (7) Tachycardia (8) Vertigo Old medical records were reviewed. Nurse's notes were reviewed and I agree with. Family History Diabetes mellitus FHx: cancer FHx: gallbladder disease FHx: heart disease Hypertension Kidney disease Kidney stones Seizures Social History Smoking Status: Never Smoker Alcohol Use: none Marital Status: Occupation Status: retired Current/Historical Medications Scheduled Aspirin (Aspirin Ec), 81 MG PO DAILY Atorvastatin (Lipitor), 40 MG PO DAILY Cholecalciferol (Vitamin D3), 2,000 UNITS PO DAILY Fenofibrate (Tricor), 160 MG PO DAILY Home O2 Therapy (Oxygen), 2 LITERS NA HS Insulin Human NPH (Humulin N), 1 DOSE SQ UD Insulin Lispro (Human) (Humalog), 1 DOSE SC DIRECTED Isosorbide Mononitrate Ext Rel (Imdur Ext Rel), 60 MG PO QAM Levothyroxine Sodium (Levothyroxine Sodium), 137 MCG PO QAM Lisinopril (Zestril), 40 MG PO DAILY Metoprolol Tartrate (Lopressor) (Lopressor), 100 MG PO BID Montelukast Sodium (Montelukast Sodium), 1 TAB PO DAILY Multivitamin (Multivitamin), 1 TABLET PO DAILY [place]-3 Fatty Acids (Fish Oil 1200 mg), 4 CAP PO DAILY Warfarin Sod (Jantoven), 7.5 MG PO DAILY Warfarin Sodium (Coumadin), 5 MG PO 5XD Scheduled PRN Tramadol (Ultram), 1-2 TABS PO Q6 PRN for Pain Allergies Coded Allergies: Oxycodone (Verified Allergy, Mild, ITCHING ON BACK, 07/09/17) Blood-Group Specific Substance (Verified Allergy, Unknown, NO BLOOD PRODUCTS, 07/09/17) Iodinated Contrast Media (Verified Allergy, Unknown, TEARS AND FACE BECAME VERY REDDENED, 07/09/17) Diltiazem (Verified Adverse Reaction, Unknown, PAIN IN NECK, 07/09/17) Physical Exam Vital Signs Date Time Temp Pulse Resp B/P (MAP) Pulse Ox O2 Delivery O2 Flow Rate FiO2 07/09/17 12:25 61 153/71 95 07/09/17 11:00 64 172/60 96 Room Air 07/09/17 08:37 36.7 58 20 161/73 97 Room Air Physical Exam General: Non-ill appearing older female in no acute distress. HEENT: Normal cephalic atraumatic. Pupils are equal round and reactive to light. Extraocular movements are intact. Oropharynx is pink with moist mucous membranes. No swelling of the mouth lips or tongue. Neck: Supple with a midline trachea. No meningeal signs or stiffness, no JVD or bruits. No Stridor. Chest: Clear to auscultation bilaterally. No wheezes or rhonchi. No increased work of breathing. Heart: regular rate and rhythm. Abdomen: Soft nontender, nondistended without rebound guarding or rigidity. Extremities: No cyanosis clubbing or edema. No significant calf tenderness. Legs are warm with good capillary refill, appear symmetrical, and palpable distal pulse. Spine/Back. Non tender to palpation. No CVA tenderness Skin: Good turgor without rashes. Neurologic exam: Cranial nerves two through 12 are intact. Motor and sensation are intact and symmetrical throughout. Medical Decision & Procedures ER Provider Diagnostic Interpretation: Radiology results as stated below per my review and radiologist interpretation: RIGHT LEG ARTERIAL DOPPLER STUDY CLINICAL HISTORY: Right leg pain. COMPARISON STUDY: None. FINDINGS: The right ankle-brachial index measured with the posterior tibial artery was 0.85 and the dorsalis pedis artery was 0.78. The left ankle-brachial index measured with the posterior tibial artery was 1.2 and the dorsalis pedis artery was 0.9. Mild scattered calcified plaque throughout the right lower arterial system. No occlusion identified. No elevated velocities to suggest focal stenosis. Primarily biphasic flow seen throughout the right lower extremity arterial system. Monophasic flow seen within the dorsalis pedis artery. IMPRESSION: 1. No significant stenosis or occlusion identified within the right lower externally arterial system. 2. Monophasic flow within the right dorsalis pedis artery suggestive of diffuse atherosclerotic disease. 3. The right ankle-brachial index measured between 0.78 and 0.85. The left ankle-brachial index measured between 0.9 and 1.2. Electronically signed by: Kannan Chance M.D. 07/09/2017 10:59 AM LUMBAR SPINE 5 VIEWS HISTORY: pain radaiting down legs R>L COMPARISON: Abdomen and pelvis CT 11/16/2016. FINDINGS: There is no fracture. Endplate osteophytes seen throughout the lumbar spine. Mild facet degenerative changes within the lower lumbar spine. Mild disc space narrowing L5-S1. 3 mm of retrolisthesis of L5 on S1. IMPRESSION: 1. No fractures within the lumbar spine. 2. Grade I retrolisthesis of L5 on S1. 3. Mild degenerative changes within the lower lumbar spine as described above. Electronically signed by: Kannan Chance M.D. 07/09/2017 9:56 AM BILATERAL LOWER EXTREMITY VENOUS DOPPLER HISTORY: Bilateral leg pain, recent car travel COMPARISON STUDY: None. FINDINGS: There is normal compressibility, flow, and augmentation within the bilateral lower extremity deep venous systems. IMPRESSION: No DVT within the right or left lower extremity. Electronically signed by: Kannan Chance M.D. 07/09/2017 10:55 AM Laboratory Results 07/09/17 09:22 Red Blood Count 4.42, Mean Corpuscular Volume 91.9, Mean Corpuscular Hemoglobin 31.4, Mean Corpuscular Hemoglobin Concent 34.2, Mean Platelet Volume 10.8, Neutrophils (%) (Auto) 64.5, Lymphocytes (%) (Auto) 22.1, Monocytes (%) (Auto) 9.0, Eosinophils (%) (Auto) 3.6, Basophils (%) (Auto) 0.4, Neutrophils # (Auto) 4.51, Lymphocytes # (Auto) 1.55, Monocytes # (Auto) 0.63, Eosinophils # (Auto) 0.25, Basophils # (Auto) 0.03 07/09/17 09:22 Test 07/09/17 09:22 White Blood Count 7.00 K/uL (4.8-10.8) Red Blood Count 4.42 M/uL (4.2-5.4) Hemoglobin 13.9 g/dL (12.0-16.0) Hematocrit 40.6 % (37-47) Mean Corpuscular Volume 91.9 fL (80-100) Mean Corpuscular Hemoglobin 31.4 pg (25-34) Mean Corpuscular Hemoglobin Concent 34.2 g/dl (32-36) Platelet Count 220 K/uL (130-400) Mean Platelet Volume 10.8 fL (7.4-10.4) Neutrophils (%) (Auto) 64.5 % Lymphocytes (%) (Auto) 22.1 % Monocytes (%) (Auto) 9.0 % Eosinophils (%) (Auto) 3.6 % Basophils (%) (Auto) 0.4 % Neutrophils # (Auto) 4.51 K/uL (1.4-6.5) Lymphocytes # (Auto) 1.55 K/uL (1.2-3.4) Monocytes # (Auto) 0.63 K/uL (0.11-0.59) Eosinophils # (Auto) 0.25 K/uL (0-0.5) Basophils # (Auto) 0.03 K/uL (0-0.2) RDW Standard Deviation 44.6 fL (36.4-46.3) RDW Coefficient of Variation 13.3 % (11.5-14.5) Immature Granulocyte % (Auto) 0.4 % Immature Granulocyte # (Auto) 0.03 K/uL (0.00-0.02) Prothrombin Time 31.1 SECONDS (9.0-12.0) Prothromb Time International Ratio 3.0 (0.9-1.1) Activated Partial Thromboplast Time 36.1 SECONDS (21.0-31.0) Partial Thromboplastin Ratio 1.4 Anion Gap 6.0 mmol/L (3-11) Est Creatinine Clear Calc Drug Dose 50.7 ml/min Estimated GFR () 55.6 Estimated GFR (Non- 48.0 BUN/Creatinine Ratio 23.4 (10-20) Calcium Level 8.7 mg/dl (8.5-10.1) Total Bilirubin 0.6 mg/dl (0.2-1) Direct Bilirubin 0.2 mg/dl (0-0.2) Aspartate Amino Transf (AST/SGOT) 28 U/L (15-37) Alanine Aminotransferase (ALT/SGPT) 28 U/L (12-78) Alkaline Phosphatase 53 U/L (45-117) Total Protein 7.2 gm/dl (6.4-8.2) Albumin 3.1 gm/dl (3.4-5.0) Lipase 191 U/L (73-393) Laboratory studies as stated above per my review. ECG Per My Interpretation Indication: back/shoulder pain Rate (beats per minute): 61 Rhythm: normal sinus Findings: nonspecific-ST abn, RBBB (Incomplete RBBB) Comparison ECG Date: 05/18/2016 Change: no significant change ED Course 0834: Past medical records reviewed. The patient was evaluated in room A10, and a complete history and physical examination were performed. 1050: I reassessed the patient who is now at ultrasound. 1114: I reassessed who is now back from ultrasound and resting comfortably. 1130: Upon reevaluation, the patient is resting comfortably. I discussed the results and treatment plan with her. She verbalized agreement of the treatment plan. The patient was discharged home. Medical Decision Differentials include, but are not limited to; arterial insufficiency, DVT, sciatica, infection, and musculoskeletal. This patient comes in as described above she has pain in her legs mostly on the right. It seems more anteriorly. Is not red or warm she is recently take a long car ride. On exam she has no neurologic deficits. She has good capillary refill and pulse exam. She has had no back pain. She is nothing to suggest cauda equina syndrome. She is nothing to suggest infection. Abdomen is benign. She has no urinary symptoms. IV access established lumbar spine film shows degenerative changes but no acute etiology for her symptoms. Ultrasound was obtained of her legs and shows no evidence of DVT in either leg. I obtain arterial ultrasound the right leg and she has no acute arterial occlusion but hassome chronic changes. Her INR is therapeutic at 3. She has no significant electrolyte or metabolic abnormalities. her blood sugars moderately elevated however she did not take her insulin this morning because she had not eaten and she has no evidence to suggest DKA. She feels good and would like to go home. I will have her continue use [id number] ibuprofen but do not exceed the [id number] dosing regimen and do not take with any other medications that contain acetaminophen. She should rest and elevate return if: increasing pain, worsening of symptoms, fever or chills, any new problems or concerns. She is happy the plan and discharged to home. Medication Reconcilliation Current Medication List: was personally reviewed by me Blood Pressure Screening Patient's blood pressure: Elevated blood pressure Blood pressure disposition: Elevated BP felt to be situational, Referred to PCP Impression Primary Impression: Right leg pain Scribe Attestation The scribe's documentation has been prepared under my direction and personally reviewed by me in its entirety. I confirm that the note above accurately reflects all work, treatment, procedures, and medical decision making performed by me. Departure Information Dispostion Home / Self-Care Prescriptions Tramadol (Ultram) 50 Mg Tab 1-2 TABS PO Q6 Y for Pain, #20 TAB Prov: Baldev Montague M.D. 07/09/17 Referrals Katty Hand D.O. (PCP) Forms HOME CARE DOCUMENTATION FORM, IMPORTANT VISIT INFORMATION Patient Instructions My [facility] Additional Instructions Rest Return if: worsening of symptoms, increasing pain, any new problems or concerns For pain, use Ultram/Tramadol 50 mg, 1-2 pills every 4-6 hours as needed Ultram may make you drowsy-Do not take before drinking, driving, working Follow-up with doctor for recheck on Tuesday
[2017-07-09] MEDS ORDERED: WARF5TAB7 PO (09:26)
[2017-07-09 09:31] LABS: BASO % 0.4 %; BASO ABS # 0.03 K/uL (0-0.2); EOS % 3.6 %; EOS ABS # 0.25 K/uL (0-0.5); HEMATOCRIT 40.6 % (37-47); HEMOGLOBIN 13.9 g/dL (12.0-16.0); IG# 0.03 K/uL (0.00-0.02); LYMPH % 22.1 %; LYMPH ABS # 1.55 K/uL (1.2-3.4); MEAN CELL VOLUME 91.9 fL (80-100); MEAN CORPUSCULAR HEMOGLOBIN 31.4 pg (25-34); MEAN CORPUSCULAR HGB CONC 34.2 g/dl (32-36); MEAN PLATELET VOLUME 10.8 fL (7.4-10.4); MONO ABS # 0.63 K/uL (0.11-0.59); NEUT % 64.5 %; NEUT ABS # 4.51 K/uL (1.4-6.5); PLATELET COUNT 220 K/uL (130-400); RED CELL DISTRIBUTION WIDTH CV 13.3 % (11.5-14.5); RED CELL DISTRIBUTION WIDTH SD 44.6 fL (36.4-46.3)
[2017-07-09 09:40] LABS: PTT PATIENT 36.1 SECONDS (21.0-31.0)
[2017-07-09 09:51] LABS: ALBUMIN 3.1 gm/dl (3.4-5.0); CALCIUM 8.7 mg/dl (8.5-10.1); CREATININE 1.16 mg/dl (0.60-1.20); POTASSIUM 4.6 mmol/L (3.5-5.1); TOTAL PROTEIN 7.2 gm/dl (6.4-8.2)
--- NOTE | 2017-07-09 09:57 | DIAGNOSTIC IMAGING REPORT ---
LUMBAR SPINE 5 VIEWS HISTORY: pain radaiting down legs R>L COMPARISON: Abdomen and pelvis CT 11/16/2016. FINDINGS: There is no fracture. Endplate osteophytes seen throughout the lumbar spine. Mild facet degenerative changes within the lower lumbar spine. Mild disc space narrowing L5-S1. 3 mm of retrolisthesis of L5 on S1. IMPRESSION: 1. No fractures within the lumbar spine. 2. Grade I retrolisthesis of L5 on S1. 3. Mild degenerative changes within the lower lumbar spine as described above. Electronically signed by: Kannan Chance M.D. 07/09/2017 9:56 AM Dictated Date/Time: 07/09/2017 9:51 AM
--- NOTE | 2017-07-09 10:56 | DIAGNOSTIC IMAGING REPORT ---
BILATERAL LOWER EXTREMITY VENOUS DOPPLER HISTORY: Bilateral leg pain, recent car travel COMPARISON STUDY: None. FINDINGS: There is normal compressibility, flow, and augmentation within the bilateral lower extremity deep venous systems. IMPRESSION: No DVT within the right or left lower extremity. Electronically signed by: Kannan Chance M.D. 07/09/2017 10:55 AM Dictated Date/Time: 07/09/2017 10:55 AM
--- NOTE | 2017-07-09 11:00 | DIAGNOSTIC IMAGING REPORT ---
RIGHT LEG ARTERIAL DOPPLER STUDY CLINICAL HISTORY: Right leg pain. COMPARISON STUDY: None. FINDINGS: The right ankle-brachial index measured with the posterior tibial artery was 0.85 and the dorsalis pedis artery was 0.78. The left ankle-brachial index measured with the posterior tibial artery was 1.2 and the dorsalis pedis artery was 0.9. Mild scattered calcified plaque throughout the right lower arterial system. No occlusion identified. No elevated velocities to suggest focal stenosis. Primarily biphasic flow seen throughout the right lower extremity arterial system. Monophasic flow seen within the dorsalis pedis artery. IMPRESSION: 1. No significant stenosis or occlusion identified within the right lower externally arterial system. 2. Monophasic flow within the right dorsalis pedis artery suggestive of diffuse atherosclerotic disease. 3. The right ankle-brachial index measured between 0.78 and 0.85. The left ankle-brachial index measured between 0.9 and 1.2. Electronically signed by: Kannan Chance M.D. 07/09/2017 10:59 AM Dictated Date/Time: 07/09/2017 10:55 AM
[2017-07-09] MEDS ORDERED: TRAM-10 PO (12:07)
[2017-07-09 12:25] VITALS: BP 153/71; PULSE 61; O2SAT 95
== END 2017-07-09 12:26 | disposition home or self-care (01) ==
LOC: C.EDB 08:33 → C.EDA 12:26
DX: M79.604 Pain in right leg (principal); E11.9 Type 2 diabetes mellitus without complications; I10 Essential (primary) hypertension; I25.2 Old myocardial infarction; E78.00 Pure hypercholesterolemia, unspecified; Z79.82 Long term (current) use of aspirin; Z79.01 Long term (current) use of anticoagulants; Z79.4 Long term (current) use of insulin; Z79.899 Other long term (current) drug therapy; Z88.5 Allergy status to narcotic agent; Z91.041 Radiographic dye allergy status; Z88.8 Allergy status to other drugs, medicaments and biological substances

== ENCOUNTER 2018-04-17 22:50 | Inpatient (IN) ==
[2018-04-18] MEDS ORDERED: ALBUT/IPRATROP 3MG/0.5MG NEB 3 ML VIAL NEB STA ×2 (00:28→01:45)
[2018-04-18 00:55] LABS: Basophils # (auto) 0.04 K/uL (0-0.2); Basophils % (auto) 0.6 %; Eosinophils # (auto) 0.24 K/uL (0-0.5); Eosinophils % (auto) 3.4 %; Hemoglobin 13.5 g/dL (12.0-16.0); Immature Granulocytes # (auto) 0.03 K/uL (0.00-0.02); Immature Granulocytes % (auto) 0.4 %; Lymphocytes # (auto) 1.26 K/uL (1.2-3.4); Lymphocytes % (auto) 17.8 %; Mean Corpuscular Hgb Conc 32.9 g/dL (32-36); Mean Corpuscular Volume 92.8 fL (80-100); Mean Platelet Volume 11.2 fL (7.4-10.4); Monocytes # (auto) 0.72 K/uL (0.11-0.59); Monocytes % (auto) 10.2 %; Neutrophils % (auto) 67.6 %; Platelet Count 219 K/uL (130-400); RDW Coefficient of Variation 13.3 % (11.5-14.5); RDW Standard Deviation 45.3 fL (36.4-46.3); Red Blood Count 4.42 M/uL (4.2-5.4); White Blood Count 7.09 K/uL (4.8-10.8)
[2018-04-18 01:04] LABS: D Dimer 240 ug/L FEU (0-500)
[2018-04-18 01:15] LABS: Alanine Aminotransferase 31 U/L (12-78); Albumin Level 2.9 gm/dl (3.4-5.0); Aspartate Aminotransferase 35 U/L (15-37); Bilirubin Direct 0.2 mg/dl (0-0.2); Blood Urea Nitrogen 30 mg/dl (7-18); Calcium 8.4 mg/dl (8.5-10.1); Carbon Dioxide 27 mmol/L (21-32); Chloride 102 mmol/L (98-107); Creatinine Clr Calc Pharmacy 53.3 ml/min; Est GFR (African American) 60.9; Est GFR (Non-African American) 52.6; Glucose 291 mg/dl (70-99); Magnesium 1.4 mg/dl (1.8-2.4); Potassium 4.5 mmol/L (3.5-5.1); Sodium 138 mmol/L (136-145)
[2018-04-18 01:20] LABS: Alkaline Phosphatase 56 U/L (45-117); Bilirubin,Total 0.6 mg/dl (0.2-1); Total Protein 6.8 gm/dl (6.4-8.2); Troponin I < 0.015 ng/ml (0-0.045)
[2018-04-18] MEDS ORDERED: methylPREDNISolone 125 MG/2 ML VIAL IV STA (01:45)
[2018-04-18] MEDS ORDERED: MAGNESIUM SULFATE / D5W 1 GM/100 ML BAG IV ONE ×3 (02:25→06:59)
[2018-04-18] MEDS ORDERED: LEVOFLOXACIN/D5W 750 MG/150 ML BAG IV STA (02:25)
[2018-04-18] MEDS ORDERED: SODIUM CHLORIDE 0.9% 1000ML 500 ML IV ONE (02:25)
[2018-04-18] MEDS ORDERED: BENZONATATE 100 MG CAPSULE PO PRN (03:46)
[2018-04-18] MEDS ORDERED: POLYETHYLENE (MIRALAX) 17 GM PACK PO PRN (03:46)
[2018-04-18] MEDS ORDERED: ONDANSETRON INJ 2 MG/ML 2 ML VIAL IV PRN (03:46)
[2018-04-18] MEDS ORDERED: NITROGLYCERIN SL 0.4 MG/TAB TAB SL PRN (03:46)
[2018-04-18] MEDS ORDERED: ACETAMINOPHEN 325 MG TAB PO PRN (03:46)
[2018-04-18] MEDS ORDERED: LEVOFLOXACIN CONSULT ACTIVE PRN (04:26)
[2018-04-18] MEDS ORDERED: PHARMACY GLYCEMIC MGMT CONSULT PRN (05:20)
--- NOTE | 2018-04-18 05:21 | History and Physical Report ---
DATE OF ADMISSION: 04/18/2018 CHIEF COMPLAINT: Shortness of breath. HISTORY OF PRESENT ILLNESS: This is a 68-year-old female with past medical history significant for diabetes, chronic kidney disease stage III, CAD, paroxysmal atrial fibrillation, hypertension, mitral stenosis, morbid obesity, psoriasis, presents with shortness of breath. The patient says she went to see her family doctor on last Tuesday, complained of shortness of breath and gave doxycycline for possible bronchitis, but it was not getting better and she came to the ER today. She says she is having cough with whitish phlegm. Cough pills are not working and walking short distance is making her short of breath. She uses oxygen while she is sleeping in the nighttime. She thinks that she had low grade fever today, had some chest pressure but that is gone now. She always keeps pillows while sleeping and keeps her head elevated. Denies any headache, has some dizziness, no blurred vision, no earache, no runny nose, no sore throat, no difficulty swallowing. No chest pain currently. No nausea. Had an episode of vomiting earlier. Currently, no nausea, no abdominal pain. Normal bowel and bladder movements. No blood or black stools. No burning micturition. Usually ambulates without any help, but last 2 days getting short of breath on ambulation. Currently resting comfortably, somewhat tachycardic since she had a 1 hour neb treatment. ALLERGIES: DILTIAZEM, IVP DYE, OXYCODONE. PAST MEDICAL HISTORY: As mentioned above. PAST SURGICAL HISTORY: , CABG, PTCA of circumflex, oral surgery, appendectomy. MEDICATIONS: The patient is on Tessalon Perles 100 mg p.o. t.i.d. p.r.n. doxycycline 100 mg p.o. b.i.d., Singulair 10 mg p.o. daily, aspirin enteric-coated 81 mg p.o. daily, atorvastatin 40 mg p.o. daily, lisinopril 40 mg p.o. daily, triamcinolone to apply to affected area as needed, fenofibrate 160 mg p.o. daily, Imdur 60 mg p.o. daily, Coumadin 5 mg Mondays and Fridays and rest of the days 7.5 mg, Lopressor 100 mg p.o. b.i.d., Novolin N 35 units with breakfast and 55 units before bed, oxygen 2 L at nighttime, nitroglycerin 0.4 mg sublingual p.r.n., [place] 3 fatty acids t.i.d., Humalog 35 units with breakfast, 30-40 units with lunch and 30-40 units with dinner, levothyroxine 137 mcg p.o. daily, vitamin D 2000 p.o. daily, aspirin 81 mg p.o. daily, multivitamin 1 tablet daily, Tylenol as needed. FAMILY HISTORY: Significant for bother had triple abdominal aortic aneurysm and heart disorder. SOCIAL HISTORY: , lives with her daughter. No smoking, no alcohol, no drug use. REVIEW OF SYMPTOMS: As per HPI. Rest of review of systems negative. PHYSICAL EXAMINATION: GENERAL: The patient is obese, not in acute distress. VITAL SIGNS: Temperature 36.9, pulse 102, respiratory rate 20, blood pressure 179/81, oxygen 94% room air. HEENT: No pallor, no icterus. Pupils equal, round, reactive to light. NECK: No JVD, no neck masses. Supple. CARDIOVASCULAR: S1, S2 heard. Tachycardia. No murmurs. RESPIRATORY SYSTEM: Normal AP diameter. No accessory muscle use, bilateral rhonchi heard. ABDOMEN: Soft, bowel sounds present. Nontender. No distention. CENTRAL NERVOUS SYSTEM: Cranial nerves II-XII grossly intact. Nonfocal. EXTREMITIES: Mild pitting erythema. LABS: WBC 7, hemoglobin 13.5, hematocrit 41, platelets 209. D-dimer 240. Sodium 138, potassium 4.5, chloride 102, bicarb 27, BUN 30, creatinine 1.07, serum glucose 291, lactate 1.6, calcium 8.4, magnesium 1.4, total bilirubin 0.6, direct bilirubin 0.2, AST 35, ALT 31, alkaline phosphatase is 56, troponin I less than 0.015. Lipase 129. Chest x-ray, no acute findings seen. ASSESSMENT AND PLAN: This is a 68-year-old female who presents with acute chronic obstructive pulmonary disease exacerbation. 1. Acute on chronic obstructive pulmonary disease exacerbation probably from bronchitis, failed outpatient treatment with doxycyline. We will place her on IV Levaquin, IV Solu-Medrol, nebs around the clock and p.r.n. and monitor in the med/tele. May need 2-step prior to discharge. 2. Morbid obesity. . Use 2L oxygen at bedtime. 3. Coronary artery disease status post coronary and stents. Currently asymptomatic and continue her home aspirin, Lopressor, Imdur ,Lipitor, and fenofibrate 4. History of paroxysmal atrial fibrillation, on Lopressor. We will monitor. On Coumadin. Follow with PT/INR. 6. History of hypertension, on Lopressor, Imdur, lisinopril. We will monitor the blood pressure. 7. History of diabetes. Continue home Novolin N insulin sliding scale. Follow hemoglobin A1c level. Consult glycemic pharmacy for insulin adjustment while patient is on steroids. 8. Chronic kidney disease stage III, creatinine 1.07, will follow the labs. Baseline creatinine is 1.1. 9. Deep venous thrombosis prophylaxis, on Coumadin. Follow PT/INR. CODE STATUS: Level 1 full code. DISPOSITION: Admit to med/tele. Level 1 full code. PT and OT prior to discharge. Social service to help with discharge planning. MARIO
--- NOTE | 2018-04-18 05:33 | Emergency Department Note ---
Entered by Phil Bass acting as a scribe for Charles Rowley MD ED Provider Note Name: Sujata Rausch Age: 68 Arrives Via: Private vehicle Informant: Patient CC: SOB HPI: The patient is a 68 year old female who presents to the ED due to complaints of worsening SOB that began recently. Patient states she was at her PCP 3 days ago and diagnosed with bronchitis. She states she was prescribed Doxycycline and tessalon perles which have given her minimal relief of her symptoms. She states she tried to take her medication tonight but vomited them back up. Patient adds that she has also had a productive cough and describes the sputum from the cough as �yellow�. Patient adds that when she coughs she gets a heaviness across her chest. She states she has also been lightheaded but denies passing out. She adds she has also had a runny nose. Patient states she uses oxygen at night when she sleeps. Patient denies taking any steroids and states that she is not on steroids chronically. Patient�s past medical history includes atrial fibrillation, psoriasis, and a broken left leg two months ago. Patient states she has left leg swelling which she believes is secondary to her broken left leg. Patient got a flu shot this year. Patient denies using an inhaler recently, chest pain in the ER, new rashes, abdominal pain, and weird lumps. ROS: See above HPI for pertinent positives & negatives. A total of 10 systems reviewed and were otherwise negative. Past Medical History: Atrial fibrillation, psoriasis, and broken left leg Past Surgical History: None Family History: None Social History: Lives with family Home Medications: Doxycycline and tessalon perles Allergies Oxycodone Physical: Vitals: BP = 202/83 P = 96 Resp = 20 Temp = 98.4 O2 Sat = 92 Delivery = Room Air Exam: GENERAL: Patient is well appearing, in mild distress, and short of breath. EYES: No scleral icterus, unremarkable pupils. ENT: Mucous membranes moist, no nasal congestion. NECK: No masses appreciated, no meningismus, trachea is midline. RESPIRATORY: Diffuse wheezing and crackles, dyspneic, tachypneic otherwise clear to auscultation and equal bilaterally. No rhonchi. CARDIOVASCULAR: Regular rate and rhythm. No murmurs, rubs, gallops appreciated. GASTROINTESTINAL: Abdomen soft, non-tender, no peritonitis. Bowel sounds positive. No masses appreciated. BACK: No midline tenderness, no CVA tenderness EXTREMITIES: Normal motion all extremities, no cyanosis, no edema. NEUROLOGIC: Alert and oriented, no acute motor or sensory deficits, no focal weakness, cranial nerves grossly intact. SKIN: Diffuse plaques consistent with extensive psoriasis otherwise no jaundice , no diaphoresis. ED Course: Prior Medical Record, Triage/Nursing Notes, Medications, Allergies reviewed by Me Vital Signs: reviewed and remarkable for HTN Labs: Reviewed and remarkable for hypomag, wnl cbc, bmp, lft, lipase, trop. Interventions: Saline Lock, Solumedrol 125mg IV, Duoneb 9ml neb, Mag 1 G IV, Levaquin 750mg IV Imaging: X ray results are stated below per my interpretation: Chest: 1 view: No infiltrate, no effusion, normal cardiac border. Consults: 0223: I reviewed the patient's case with Dr. Caballero. He will evaluate the patient for further management. Times: 0018: Past medical records reviewed. The patient was evaluated in room B4 , and a complete history and physical examination were performed. 0145: I reevaluated the patient who states her breathing has improved. Repeat exam shows loud wheezing in all areas on exam. Patient is gonna try another nebulizer treatment. 0233: Upon reevaluation, the patient will be further evaluated. I updated the patient on her treatment plan and findings. Patient is agreeable to the treatment plan. Patient will be assessed for further evaluation. Blood pressure: Elevated - Referred to Hospitalist Disposition: Hospitalization Differentials: Infectious, Reactive Airway Disease, Pneumonia, Pneumothorax, COPD, CHF, ACS, Pulmonary Embolism, MSK, GI, Dissection, amongst other etiologies entertained. Medical Decision Making: Pleasant 68 yr old female with shortness of breath arrives in respiratory distress with diffusely tight lung sounds after several does duoneb she has improved aeration though continued loud wheezing and dyspenea. Given IV solumedrol. Hypomag as well thus IV mag. Levaquin IV as already was on doxy. She is now modestly tachy though ST on 120s on monitor and not in afib. She was given mild hydration. She is too shob to be discharged home at this time and will need further work-up and evaluation. She has neg dimer and I do not feel ct pe study indicated. no evidence ACS. Modest hyperglycemia will also need to be monitored in hospital given she recieved IV steroids. Impression: COPD Exacerbation Failed outpatient treatment Hypomagnesemia Hyperglycemia Charles Rowley MD The scribe's documentation has been prepared under my direction and personally reviewed by me in its entirety. I confirm that the note above accurately reflects all work, treatment, procedures, and medical decision making performed by me. Impression & Plan COPD exacerbation, Failure of outpatient treatment, Acute hyperglycemia, Hypomagnesemia Past Med/Surg History Social History Current Living Situation: Family Feels Safe at Home: Yes Safety Concerns: Feels Safe At This Time Smoking Status: Never smoker Hx Alcohol Use: No Hx Substance Use: No Beliefs That Will Affect Care: Synagogue Synagogue Beliefs: BUDDHISM Preferred Language: [place]ian Communication Ability: Effective Sole Rougher Required: No Results & Data Vital Signs Vital Signs - 24 hr 04/17/18 22:54 04/18/18 01:54 04/18/18 03:13 Temperature 36.9 C Temperature Source Oral Sepsis Recent Fever Within 48 Hours No Sepsis New/Unexplained Change in Mental Status No Sepsis Action Taken by Nursing No Action Required Pulse Rate 96 H Pulse Rate [Right] 102 H 119 H Pulse Rhythm Regular Pulse Rhythm [Right] Regular Pulse Strength Normal Pulse Strength [Right] Normal Respiratory Rate 20 20 24 Respiratory Effort / Characteristics Non-Labored Spontaneous Non-Labored Non-Labored Spontaneous Respiratory Depth Normal Normal Normal Respiratory Pattern Regular Regular Blood Pressure 202/83 H Blood Pressure [Right Arm] 179/81 H 183/55 H Blood Pressure Mean 122 Blood Pressure Mean [Right Arm] 113 97 Blood Pressure Position Sitting Blood Pressure Position [Right Arm] Lying Pulse Oximetry 92 94 96 Oxygen Delivery Method Room Air Room Air Room Air 04/18/18 04:16 04/18/18 04:51 Temperature 36.8 C Temperature Source Oral Sepsis Recent Fever Within 48 Hours Sepsis New/Unexplained Change in Mental Status Sepsis Action Taken by Nursing Pulse Rate 121 H Pulse Rate [Right] 123 H Pulse Rhythm Pulse Rhythm [Right] Regular Pulse Strength Pulse Strength [Right] Normal Respiratory Rate 20 Respiratory Effort / Characteristics Non-Labored Spontaneous Respiratory Depth Normal Respiratory Pattern Regular Blood Pressure Blood Pressure [Right Arm] 149/61 H Blood Pressure Mean Blood Pressure Mean [Right Arm] 90 Blood Pressure Position Blood Pressure Position [Right Arm] Lying Pulse Oximetry 95 Oxygen Delivery Method Room Air Nasal Cannula Laboratory Data Result diagrams: 04/18/18 00:45 04/18/18 00:45 Lab Results 04/18/18 04/18/18 04/18/18 Range/Units 00:45 00:45 00:45 WBC 7.09 (4.8-10.8) K/uL RBC 4.42 (4.2-5.4) M/uL Hgb 13.5 (12.0-16.0) g/dL Hct 41.0 (37-47) % MCV 92.8 (80-100) fL MCH 30.5 (25-34) pg MCHC 32.9 (32-36) g/dL RDW Std Deviation 45.3 (36.4-46.3) fL RDW Coeff of Ree 13.3 (11.5-14.5) % Plt Count 219 (130-400) K/uL MPV 11.2 H (7.4-10.4) fL Immature Gran % (Auto) 0.4 % Neut % (Auto) 67.6 % Lymph % (Auto) 17.8 % Storey % (Auto) 10.2 % Eos % (Auto) 3.4 % Baso % (Auto) 0.6 % Immature Gran # (Auto) 0.03 H (0.00-0.02) K/uL Neut # (Auto) 4.80 (1.4-6.5) K/uL Lymph # (Auto) 1.26 (1.2-3.4) K/uL Storey # (Auto) 0.72 H (0.11-0.59) K/uL Eos # (Auto) 0.24 (0-0.5) K/uL Baso # (Auto) 0.04 (0-0.2) K/uL D-Dimer 240 (0-500) ug/L FEU Sodium 138 (136-145) mmol/L Potassium 4.5 (3.5-5.1) mmol/L Chloride 102 (98-107) mmol/L Carbon Dioxide 27 (21-32) mmol/L Anion Gap 9.0 (3-11) BUN 30 H (7-18) mg/dl Creatinine 1.07 (0.6-1.2) mg/dl Est Cr Clr Drug Dosing 53.3 ml/min Est GFR ( Amer) 60.9 Est GFR (Non-Af Amer) 52.6 BUN/Creatinine Ratio 28.0 H (10-20) Glucose 291 H (70-99) mg/dl Lactate (0.4-2.0) mmol/L Calcium 8.4 L (8.5-10.1) mg/dl Magnesium 1.4 L (1.8-2.4) mg/dl Total Bilirubin 0.6 (0.2-1) mg/dl Direct Bilirubin 0.2 (0-0.2) mg/dl AST 35 (15-37) U/L ALT 31 (12-78) U/L Alkaline Phosphatase 56 (45-117) U/L Troponin I < 0.015 (0-0.045) ng/ml Total Protein 6.8 (6.4-8.2) gm/dl Albumin 2.9 L (3.4-5.0) gm/dl Lipase 129 (73-393) U/L 04/18/18 Range/Units 00:45 WBC (4.8-10.8) K/uL RBC (4.2-5.4) M/uL Hgb (12.0-16.0) g/dL Hct (37-47) % MCV (80-100) fL MCH (25-34) pg MCHC (32-36) g/dL RDW Std Deviation (36.4-46.3) fL RDW Coeff of Ree (11.5-14.5) % Plt Count (130-400) K/uL MPV (7.4-10.4) fL Immature Gran % (Auto) % Neut % (Auto) % Lymph % (Auto) % Storey % (Auto) % Eos % (Auto) % Baso % (Auto) % Immature Gran # (Auto) (0.00-0.02) K/uL Neut # (Auto) (1.4-6.5) K/uL Lymph # (Auto) (1.2-3.4) K/uL Storey # (Auto) (0.11-0.59) K/uL Eos # (Auto) (0-0.5) K/uL Baso # (Auto) (0-0.2) K/uL D-Dimer (0-500) ug/L FEU Sodium (136-145) mmol/L Potassium (3.5-5.1) mmol/L Chloride (98-107) mmol/L Carbon Dioxide (21-32) mmol/L Anion Gap (3-11) BUN (7-18) mg/dl Creatinine (0.6-1.2) mg/dl Est Cr Clr Drug Dosing ml/min Est GFR ( Amer) Est GFR (Non-Af Amer) BUN/Creatinine Ratio (10-20) Glucose (70-99) mg/dl Lactate 1.6 (0.4-2.0) mmol/L Calcium (8.5-10.1) mg/dl Magnesium (1.8-2.4) mg/dl Total Bilirubin (0.2-1) mg/dl Direct Bilirubin (0-0.2) mg/dl AST (15-37) U/L ALT (12-78) U/L Alkaline Phosphatase (45-117) U/L Troponin I (0-0.045) ng/ml Total Protein (6.4-8.2) gm/dl Albumin (3.4-5.0) gm/dl Lipase (73-393) U/L Administered Medications Discontinued Medications Albuterol (Duoneb) 3 ml NEB NOW STA Stop: 04/18/18 00:29 Last Admin: 04/18/18 00:45 Dose: 3 ml Albuterol (Duoneb) 6 ml NEB NOW STA Stop: 04/18/18 01:46 Last Admin: 04/18/18 01:48 Dose: 6 ml Magnesium Sulfate/Dextrose (Magnesium Sulfate / D5w) 1 gm in 100 mls @ 100 mls/ hr IV ONE ONE Stop: 04/18/18 03:24 Last Infusion: 04/18/18 03:26 Dose: 0 mls/hr Admin: 04/18/18 02:30 Dose: 100 mls/hr Levofloxacin/Dextrose (Levaquin/D5w) 750 mg in 150 mls @ 100 mls/hr IV NOW STA Stop: 04/18/18 03:54 Last Admin: 04/18/18 03:26 Dose: 100 mls/hr Sodium Chloride (Nss 1000ml) 500 mls @ 999 mls/hr IV .Q31M ONE Stop: 04/18/18 02:55 Last Infusion: 04/18/18 03:26 Dose: 0 mls/hr Admin: 04/18/18 02:30 Dose: 999 mls/hr Magnesium Sulfate/Dextrose (Magnesium Sulfate / D5w) 1 gm in 100 mls @ 100 mls/ hr IV ONE ONE Stop: 04/18/18 05:14 Last Admin: 04/18/18 05:29 Dose: 100 mls/hr Methylprednisolone (Solumedrol) 125 mg IV NOW STA Stop: 04/18/18 01:46 Last Admin: 04/18/18 01:48 Dose: 125 mg Discharge Plan Visit Data *Final* Discharge Date/Time: 04/18/18 03:35 Chief Complaint: Shortness of Breath/Dyspnea Stated Complaint: COUGHING, SOB - JUST NOT FEELING WELL ED Provider: Charles Rowley Discharge Problem: COPD exacerbation, Failure of outpatient treatment, Acute hyperglycemia, Hypomagnesemia Patient Disposition: Admitted As Inpatient Discharge Instructions Interventions: ED Discharge Assessment Last Done: 04/18/18 03:35 The scribe's documentation has been prepared under my direction and personally reviewed by me in its entirety. I confirm that the note above accurately reflects all work, treatment, procedures, and medical decision making performed by me.
[2018-04-18 05:35] LABS: INR 2.8 (0.9-1.1); Prothrombin Time 26.3 Seconds (9.0-12.0)
[2018-04-18 06:12] LABS: Estimated Average Glucose 166 mg/dl; Hemoglobin A1C 7.4 % (4.5-5.6)
[2018-04-18] MEDS: INSULIN ASPART 100 UNITS/ML 3 ML PEN SC SCH ×5 (06:45→21:35)
--- NOTE | 2018-04-18 07:51 | XRay Report ---
XR chest 1V portable CLINICAL HISTORY: 68 years-old Female presenting with cough, shob. TECHNIQUE: Portable upright AP view of the chest was obtained. COMPARISON: 02/07/2018. FINDINGS: Median sternotomy wires again noted. Cardiac silhouette top normal in size. Mild prominence of the ma in pulmonary artery. Pulmonary vasculature is also prominent with bronchial wall cuffing. No focal op acity. No large effusion or pneumothorax. Degenerative changes of the thoracic spine. Upper abdomen n ormal. IMPRESSION: 1. Cardiomegaly with volume overload/congestive change. No josh pulmonary edema at this time. Electronically signed by: Morales Boone M.D. 04/18/2018 7:50 AM
[2018-04-18] MEDS ORDERED: XOPENEX/ATROVENT 1.25mg/0.5MG NEB COMBO NEB SCH (08:00)
[2018-04-18] MEDS ORDERED: IPRATROPIUM BROMIDE NEB SOLN 0.02% 2.5 ML VIAL INH SCH (08:00)
[2018-04-18] MEDS ORDERED: LEVALBUTEROL 1.25MG/0.5ML NEB INH SCH (08:00)
--- NOTE | 2018-04-18 08:46 | Hospitalist Progress Note ---
Date of Service April 18, 2018 Assessment & Plan (1) COPD exacerbation: This is a 68-year-old female who presents with acute bronchitis admission CXR: Median sternotomy wires again noted. Cardiac silhouette top normal in size. Mild prominence of the main pulmonary artery. Pulmonary vasculature is also prominent with bronchial wall cuffing. No focal opacity. No large effusion or pneumothorax. Degenerative changes of the thoracic spine. Upper abdomen normal. 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 Currently asymptomatic 05/02/2018 3:30 PM Provider Ceasar Galdamez Jr., Department Cardiology, [facility] continue her home aspirin, Imdur ,Lipitor on beta norberto paroxysmal atrial fibrillation currently with sinus tachycardia sinus tachycardia may be induced by albuterol nebulizers, and will place on as needed Xopenex/Albuterol to minimize tachycardia rather than scheduled treatments continue home dose 100 mg BID metoprolol tartrate monitor on telemetry whether any other additional rate control medications needed Anticoagulated on anticoagulation therapy INR 2.8 continue coumadin, trend INR daily while inpatient coumadin clinic as outpatient on 05/02/2018 2:00 PM Provider [facility] [place] [facility], [place] hypothyroidism. continue levothyroxine check TSH Hypomagenesemia give IV and oral magnesium supplements and trend History of hypertension on beta norberto, Imdur, lisinopril. Chronic kidney disease stage III monitor creatinine Type 2 diabetes mellitus on intervention nurse current use of insulin -will transition from solumedrol to prednisone as there is clinical respiratory improvement and to minimize steroid induced hyperglcyemia in patient with Type 2 diabetes mellitus on halfway current use of insulin -continue pharmacy glycemic consult Morbid obesity with BMI 45 in an adult PT/OT evaluation Deep venous thrombosis prophylaxis, on Coumadin. Follow PT/INR. CODE STATUS: Level 1 full code Daughter [phone] Subjective Patient seen and examined this morning. Sitting up in bed and breathing on room air. not in respiratory distress. patient reports her breathing has improved significantly after nebulizer treatments over night. The patient has sinus tachycardia of 118 beats per minute which is recorded on gambling monitor. Patient does not report of feeling palpitations or chest pain or lightheadedness. Patient denies fever. no abdominal pain, no vomiting Physical Exam 2 Vital Signs (Past 24 Hours): Last Vital Signs Temp 36.6 C 04/18/18 07:52 Pulse 82 04/18/18 07:52 Resp 17 04/18/18 07:52 BP 153/79 H 04/18/18 07:52 Pulse Ox 95 04/18/18 07:52 Constitutional: WD/WN, vitals as above Eyes: normal visual [place] by confrontation and EOM intact bilaterally ENMT: external ear and nose normal, oropharynx normal Neck: trachea midline, no thyromegaly Respiratory: normal respiratory effort, lungs clear to auscultation Cardiovascular: Rate/Rhythm: + tachycardic Gastrointestinal (Abdomen): normal bowel sounds, soft, nontender, no hepatosplenomegaly Musculoskeletal: no cyanosis or clubbing, extremities motor strength 5/5 Head/Neck/Chest: normocephalic and head atraumatic Neurologic: PERRL, EOMI, accommodation nl, no face palsy, no dysarthria CN' s II-XI intact bilaterally Psychiatric: A+Ox3, euthymic affect
[2018-04-18] MEDS: LEVOTHYROXINE SODIUM 137 MCG TABLET PO SCH (08:59)
[2018-04-18] MEDS: MONTELUKAST SODIUM 10 MG TABLET PO SCH (08:59)
[2018-04-18] MEDS: ASPIRIN 81 MG ECTAB PO SCH (09:00)
[2018-04-18] MEDS ORDERED: [UNRECOGNIZED DRUG - OTHER] SQ SCH (09:00)
[2018-04-18] MEDS: MULTIVITAMIN TAB PO SCH (09:00)
[2018-04-18] MEDS ORDERED: INSULIN ISOPHANE SQ SCH (09:00)
[2018-04-18] MEDS: METOPROLOL TARTRATE 100 MG TAB PO SCH ×2 (09:00→21:32)
[2018-04-18] MEDS ORDERED: INSULIN HUMAN NPH SC SCH ×2 (09:00→17:00)
[2018-04-18] MEDS: CHOLECALCIFEROL 1,000 UNITS TAB PO SCH (09:01)
[2018-04-18] MEDS: MAGNESIUM OXIDE 400 MG TAB PO SCH (09:01)
[2018-04-18] MEDS: ISOSORBIDE MONO EXTENDED REL 60 MG TABCR PO SCH (09:01)
[2018-04-18 09:18] LABS: Calcium 8.7 mg/dl (8.5-10.1); Creatinine Clr Calc Pharmacy 46.5 ml/min; Est GFR (African American) 51.5; Est GFR (Non-African American) 44.4; Magnesium 1.5 mg/dl (1.8-2.4); Potassium 4.4 mmol/L (3.5-5.1)
[2018-04-18 09:30] LABS: Beta-Hydroxybutyrate 23.33 mg/dl (0.2-2.81)
[2018-04-18] MEDS ORDERED: SODIUM CHLORIDE 0.9% 1000ML 1,000 ML IV SCH ×2 (09:30→16:00)
[2018-04-18] MEDS ORDERED: methylPREDNISolone 40 MG in SYRINGE 0 ML IV SCH (10:00)
[2018-04-18] MEDS: predniSONE 20 MG TAB PO SCH (10:19)
[2018-04-18 12:45] LABS: Albumin Level 2.8 gm/dl (3.4-5.0); BUN Creatinine Ratio 23.9 (10-20); Calcium 8.4 mg/dl (8.5-10.1); Creatinine Clr Calc Pharmacy 46.8 ml/min; Est GFR (Non-African American) 44.8; Magnesium 2.2 mg/dl (1.8-2.4); Potassium 4.5 mmol/L (3.5-5.1)
[2018-04-18 12:56] LABS: Albumin Globulin Ratio 0.7 (0.9-2); Bilirubin,Total 0.4 mg/dl (0.2-1); Globulin 4.2 gm/dl (2.5-4.0)
[2018-04-18] MEDS: LEVALBUTEROL 1.25MG/0.5ML NEB INH PRN (13:12)
--- NOTE | 2018-04-18 14:02 | Pharmacy Report ---
Pharmacy Glycemic Short Note 2 - Date of Service April 18, 2018 - Glycemic Short BSG Results (Last 24 hours): 04/18/18 04/18/18 04/18/18 00:45 05:17 06:04 Glucose 291 H 394 H* POC Glucose 368 H* 04/18/18 04/18/18 11:34 12:17 Glucose 271 H POC Glucose 299 H OUTPATIENT ANTIDIABETIC REGIMEN: * NPH 40 units SQ qAM, 55 units SQ qPM * Humalog 30 units TIDM ASSESSMENT: * 68 yr old female admitted with SOB due to COPD exacerbation/bronchitis * Patient given a one time dose of solu medrol 125 mg IV, then started on prednisone 40 mg po daily * Patient takes large doses of insulin at home (185 units/day) * Will utilize aggressive doses due to home usage and prednisone PLAN FOR INPATIENT GLYCEMIC CONTROL: * Basal insulin * Lantus 50 units SQ qAM, then per scale with dinner * 55 units for BSG less than 140 * 60 units for BSG 140-200 * 65 units for BSG greater than 200 * Bolus insulin - tighten carb ratio * NovoLog per scale ACHS or Q6hrs while NPO * Goal Range: Low 110 mg/dL - High 140 mg/dL * Correction Factor: 10 mg/dL/unit * Nutritional / Prandial insulin per carb ratio of 1 unit per 3 grams CHO consumed Thank you
[2018-04-18] MEDS ORDERED: WARFARIN SOD 7.5 MG TAB PO SCH (16:00)
[2018-04-18] MEDS ORDERED: INSULIN NPH ISOPH U HUMAN SQ SCH (21:00)
[2018-04-18] MEDS: ATORVASTATIN 40 MG TAB PO SCH (21:33)
[2018-04-18] MEDS: LISINOPRIL 40 MG TAB PO SCH (21:34)
[2018-04-19] MEDS ORDERED: LEVOFLOXACIN/D5W 500 MG/100 ML BAG IV SCH (06:00)
[2018-04-19] MEDS: LEVOTHYROXINE SODIUM 137 MCG TABLET PO SCH (06:25)
[2018-04-19 07:10] LABS: Prothrombin Time 19.4 Seconds (9.0-12.0)
[2018-04-19 07:26] LABS: BUN Creatinine Ratio 25.1 (10-20); Calcium 8.1 mg/dl (8.5-10.1); Creatinine Clr Calc Pharmacy 44.2 ml/min; Est GFR (African American) 48.1; Est GFR (Non-African American) 41.5; Magnesium 2.1 mg/dl (1.8-2.4); Potassium 4.6 mmol/L (3.5-5.1)
[2018-04-19] MEDS: MULTIVITAMIN TAB PO SCH (08:03)
[2018-04-19] MEDS: ASPIRIN 81 MG ECTAB PO SCH (08:03)
[2018-04-19] MEDS: ISOSORBIDE MONO EXTENDED REL 60 MG TABCR PO SCH (08:03)
[2018-04-19] MEDS: METOPROLOL TARTRATE 100 MG TAB PO SCH ×2 (08:03→20:27)
[2018-04-19] MEDS: CHOLECALCIFEROL 1,000 UNITS TAB PO SCH (08:03)
[2018-04-19] MEDS: predniSONE 20 MG TAB PO SCH (08:04)
[2018-04-19] MEDS: MAGNESIUM OXIDE 400 MG TAB PO SCH (08:04)
[2018-04-19] MEDS: MONTELUKAST SODIUM 10 MG TABLET PO SCH (08:04)
[2018-04-19] MEDS: INSULIN ASPART 100 UNITS/ML 3 ML PEN SC SCH ×4 (08:05→20:34)
[2018-04-19] MEDS: INSULIN HUMAN NPH SC SCH ×2 (09:54→17:30)
[2018-04-19] MEDS: LEVALBUTEROL 1.25MG/0.5ML NEB INH PRN ×2 (15:49→19:10)
[2018-04-19] MEDS: IPRATROPIUM BROMIDE NEB SOLN 0.02% 2.5 ML VIAL INH PRN ×2 (15:49→19:10)
[2018-04-19] MEDS ORDERED: WARFARIN SOD 5 MG TAB PO SCH (16:00)
--- NOTE | 2018-04-19 16:44 | Pharmacy Report ---
Pharmacy Glycemic Short Note 2 - Date of Service April 19, 2018 - Glycemic Short BSG Results (Last 24 hours): 04/18/18 04/18/18 04/19/18 16:42 21:21 06:33 Glucose 123 H POC Glucose 189 H 160 H 04/19/18 04/19/18 07:49 11:19 Glucose POC Glucose 121 H 122 H OUTPATIENT ANTIDIABETIC REGIMEN: * NPH 40 units SQ qAM, 55 units SQ qPM * Humalog 30 units TIDM ASSESSMENT: * 68 yr old female admitted with SOB due to COPD exacerbation/bronchitis * Patient remains on prednisone 40 mg po daily * Patient takes large doses of insulin at home (185 units/day) * Fasting BSG of 123 mg/dL is at goal. I will back off NPH doses due to rapid improvement from >300 mg/dL yesterday to 123 mg/dL. * Post prandial BSGs are improving. Will slightly loosen carb ratio since steroid dose decreased today. PLAN FOR INPATIENT GLYCEMIC CONTROL: * Basal insulin - decrease * Lantus per scale * 40 units for BSG less than 120 * 45 units for BSG 120-180 * 50 units for BSG greater than 180 * Bolus insulin - loosen carb ratio * NovoLog per scale ACHS or Q6hrs while NPO * Goal Range: Low 110 mg/dL - High 140 mg/dL * Correction Factor: 10 mg/dL/unit * Nutritional / Prandial insulin per carb ratio of 1 unit per 4 grams CHO consumed Thank you
--- NOTE | 2018-04-19 18:20 | Hospitalist Progress Note ---
Date of Service April 19, 2018 Assessment & Plan (1) COPD exacerbation: Bronchitis Present on admission with SOB and cough CXR showed no focal opacity. No large effusion or pneumothorax. No leukocytosis and procalcitonin and blood cx are normal Was given doxycycline by last Tuesday with no relief Has been on Levaquin day #2 Will D/C abx since there is no sign of bacterial infection or PNA on CXR Continue prednisone 40mg and neb treatment with Duoneb Will add mycomyst BID Continue Benzonatate 100mg TID Diabetes Type 2 BS was elevated due to steroid, now improved Most recent Hba1c 7.4 Pharmacy on board for glycemic management Continue monitor BS closely Coronary artery disease status post stent Currently asymptomatic Continue Aspirin, statin and metoprolol Upcoming appt with Cardiology Dr. Galdamez on 05/02/2018 3:30 at [facility] Stable paroxysmal atrial fibrillation Rate control Continue metoprolol On Coumadin with INR 2 today Pt said that she did not get Tuesday and Tuesday dose Continue monitor PT/INR coumadin clinic as outpatient on 05/02/2018 2:00 PM Provider [facility] [place] [facility], [place] Hypothyroidism. continue levothyroxine Stable Hypertension BP elevates on beta norberto, Imdur, lisinopril. Continue monitor BP Chronic kidney disease stage III JAYLEN Creatinine 1.3 Baseline 0.9- 1.0 Continue IVF fluid Will hold am dose of lisinopril Morbid obesity BMI 45 Counseling on diet and exercise Deep venous thrombosis prophylaxis On Coumadin. INR 2 today CODE STATUS FULL CODE Disposition Possible discharge tomorrow Subjective Pt was seen an examined Sitting in chair with no distress Pt said that breathing is slightly improves Continue to have wheezing and cough Denies anty chest pain, palpitation, dizziness and fever Physical Exam Vital Signs (Past 24 Hours): Last Vital Signs Temp 37.0 C 04/19/18 15:00 Pulse 71 04/19/18 15:53 Resp 18 04/19/18 15:53 BP 155/75 H 04/19/18 15:00 Pulse Ox 96 04/19/18 15:53 Physical Exam: General- No acute distress Head- atraumatic Eyes- PERRL, EOMI, ENT- oropharynx clear Neck- supple, no JVD Lungs- coarse BS Heart- regular rhythm; no murmur Abdomen- normal bowel sounds, soft, nontender Extremities- no calf tenderness Neuro- alert, oriented x 3; PERRL, EOMI; no facial palsy; no dysarthria Skin- warm & dry
[2018-04-19] MEDS: ACETYLCYSTEINE 20% INHAL SOLN ***DISPENSED BY RESP. INH SCH (19:10)
[2018-04-19] MEDS: guaiFENesin 200 MG TAB PO SCH (20:26)
[2018-04-19] MEDS: LISINOPRIL 40 MG TAB PO SCH (20:27)
[2018-04-19] MEDS: ATORVASTATIN 40 MG TAB PO SCH (20:28)
[2018-04-20] MEDS ORDERED: GLUCOSE 10 TABS/TUBE PO PRN (02:15)
[2018-04-20] MEDS ORDERED: CARBOHYDRATES FOR HYPOGLYCEMIA PO PRN (02:15)
[2018-04-20] MEDS ORDERED: DEXTROSE 50% 50 ML SYRINGE IV PRN (02:15)
[2018-04-20] MEDS ORDERED: GLUCAGON FOR INJ 1 MG VIAL IM PRN (02:15)
[2018-04-20] MEDS ORDERED: GLUCOSE 40% GEL 15 GM TUBE PO PRN (02:15)
[2018-04-20] MEDS: LEVALBUTEROL 1.25MG/0.5ML NEB INH PRN ×4 (03:19→17:53)
[2018-04-20] MEDS: IPRATROPIUM BROMIDE NEB SOLN 0.02% 2.5 ML VIAL INH PRN ×3 (03:19→13:49)
[2018-04-20] MEDS ORDERED: LEVOFLOXACIN/D5W 250 MG/50 ML BAG IV SCH (06:00)
[2018-04-20] MEDS: guaiFENesin 200 MG TAB PO SCH ×2 (06:23→13:31)
[2018-04-20] MEDS: LEVOTHYROXINE SODIUM 137 MCG TABLET PO SCH (06:23)
[2018-04-20] MEDS: ACETYLCYSTEINE 20% INHAL SOLN ***DISPENSED BY RESP. INH SCH (07:00)
[2018-04-20 07:48] LABS: INR 1.5 (0.9-1.1); Prothrombin Time 15.4 Seconds (9.0-12.0)
[2018-04-20] MEDS: ASPIRIN 81 MG ECTAB PO SCH (08:02)
[2018-04-20] MEDS: METOPROLOL TARTRATE 100 MG TAB PO SCH (08:02)
[2018-04-20] MEDS: MAGNESIUM OXIDE 400 MG TAB PO SCH (08:02)
[2018-04-20] MEDS: MONTELUKAST SODIUM 10 MG TABLET PO SCH (08:02)
[2018-04-20] MEDS: MULTIVITAMIN TAB PO SCH (08:03)
[2018-04-20] MEDS: predniSONE 20 MG TAB PO SCH (08:03)
[2018-04-20] MEDS: ISOSORBIDE MONO EXTENDED REL 60 MG TABCR PO SCH (08:03)
[2018-04-20] MEDS: CHOLECALCIFEROL 1,000 UNITS TAB PO SCH (08:03)
[2018-04-20] MEDS: INSULIN ASPART 100 UNITS/ML 3 ML PEN SC SCH ×3 (08:06→17:10)
[2018-04-20] MEDS: INSULIN HUMAN NPH SC SCH ×2 (08:08→17:10)
[2018-04-20 08:31] LABS: BUN Creatinine Ratio 31.6 (10-20); Calcium 8.8 mg/dl (8.5-10.1); Creatinine Clr Calc Pharmacy 49.9 ml/min; Est GFR (African American) 55.8; Est GFR (Non-African American) 48.2
[2018-04-20 09:06] LABS: Potassium 4.6 mmol/L (3.5-5.1)
--- NOTE | 2018-04-20 09:33 | Pharmacy Report ---
Pharmacy Glycemic Short Note 2 - Date of Service April 20, 2018 - Glycemic Short BSG Results (Last 24 hours): 04/19/18 04/19/18 04/20/18 11:19 20:33 01:49 Glucose POC Glucose 122 H 102 H 49 L* 04/20/18 04/20/18 04/20/18 02:09 07:06 07:37 Glucose 96 POC Glucose 83 94 OUTPATIENT ANTIDIABETIC REGIMEN: * NPH 40 units SQ qAM, 55 units SQ qPM * Humalog 30 units TIDM ASSESSMENT: * 68 yr old female admitted with SOB due to COPD exacerbation/bronchitis * Prednisone tapered down to 30 mg po daily * Patient takes large doses of insulin at home (185 units/day) * Blood sugars at goal, but then dropping overnight around 0200 - will decrease NPH doses and loosen CF and CR * continue to do so as steroids taper down PLAN FOR INPATIENT GLYCEMIC CONTROL: * Basal insulin - decrease * Lantus per scale * 35 units for BSG less than 120 * 40 units for BSG 120-180 * 45 units for BSG greater than 180 * Bolus insulin - loosen carb ratio & correction factor * NovoLog per scale ACHS or Q6hrs while NPO * Goal Range: Low 110 mg/dL - High 140 mg/dL * Correction Factor: 15 mg/dL/unit * Nutritional / Prandial insulin per carb ratio of 1 unit per 5 grams CHO consumed Thank you
--- NOTE | 2018-04-20 15:04 | Hospitalist Progress Note ---
Date of Service April 20, 2018 Physical Exam Vital Signs (Past 24 Hours): Last Vital Signs Temp 36.4 C L 04/20/18 11:34 Pulse 86 04/20/18 13:49 Resp 16 04/20/18 13:49 BP 168/79 H 04/20/18 11:34 Pulse Ox 97 04/20/18 13:49
--- NOTE | 2018-04-20 15:09 | Hospitalist Progress Note ---
Date of Service April 20, 2018 Assessment & Plan (1) COPD exacerbation: Bronchitis Present on admission with SOB and cough CXR showed no focal opacity. No large effusion or pneumothorax. No leukocytosis and procalcitonin and blood cx are normal Was given doxycycline by last Tuesday with no relief Received Levaquin for 2 days Will D/C abx since there is no sign of bacterial infection or PNA on CXR Continue prednisone 40mg and neb treatment with Duoneb Continue Benzonatate 100mg TID Diabetes Type 2 BS was elevated due to steroid, now improved Most recent Hba1c 7.4 Pharmacy on board for glycemic management Continue monitor BS closely Coronary artery disease status post stent Currently asymptomatic Continue Aspirin, statin and metoprolol Upcoming appt with Cardiology Dr. Galdamez on 05/02/2018 3:30 at [facility] Stable paroxysmal atrial fibrillation Rate control Continue metoprolol On Coumadin with INR 1.5 today Continue coumadin 7.5 mg today and tomorrow Continue monitor PT/INR coumadin clinic as outpatient on 05/02/2018 2:00 PM Provider [facility], [place] Follow up with coag clinic Hypothyroidism. continue levothyroxine Stable Hypertension BP elevates on beta norberto, Imdur, lisinopril. Continue monitor BP Follow up with PCP and adjust med if needed Chronic kidney disease stage III Acute Kidney Injury Creatinine 1.1 Baseline 0.9- 1.0 Continue Lisinopril Continue Monitor BMP Morbid obesity BMI 45 Counseling on diet and exercise Deep venous thrombosis prophylaxis On Coumadin. INR 1.5 today CODE STATUS FULL CODE Disposition Possible discharge today Subjective Pt was seen and examined Sitting in chair with no distress eating lunch Pt said that her breathing improves a little She said that she continues to cough Denies any chest pain, palpitation and fever Physical Exam Vital Signs (Past 24 Hours): Last Vital Signs Temp 36.4 C L 04/20/18 11:34 Pulse 86 04/20/18 13:49 Resp 16 04/20/18 13:49 BP 168/79 H 04/20/18 11:34 Pulse Ox 97 04/20/18 13:49 Physical Exam: General- No acute distress Head- atraumatic Eyes- PERRL, EOMI, ENT- oropharynx clear Neck- supple, no JVD Lungs- +mild wheezing on expiratory Heart- regular rhythm; no murmur Abdomen- normal bowel sounds, soft, nontender Extremities- no calf tenderness Neuro- alert, oriented x 3; PERRL, EOMI; no facial palsy; no dysarthria Skin- warm & dry
[2018-04-20] MEDS ORDERED: WARFARIN SOD 7.5 MG TAB PO SCH (16:00)
--- NOTE | 2018-04-21 06:35 | Discharge Summary ---
Date of Service April 24, 2018 Admission HPI Per Admitting Provider CHIEF COMPLAINT: Shortness of breath. HISTORY OF PRESENT ILLNESS: This is a 68-year-old female with past medical history significant for diabetes, chronic kidney disease stage III, CAD, paroxysmal atrial fibrillation, hypertension, mitral stenosis, morbid obesity, psoriasis, presents with shortness of breath. The patient says she went to see her family doctor on last Tuesday, complained of shortness of breath and gave doxycycline for possible bronchitis, but it was not getting better and she came to the ER today. She says she is having cough with whitish phlegm. Cough pills are not working and walking short distance is making her short of breath. She uses oxygen while she is sleeping in the nighttime. She thinks that she had low grade fever today, had some chest pressure but that is gone now. She always keeps pillows while sleeping and keeps her head elevated. Denies any headache, has some dizziness, no blurred vision, no earache, no runny nose, no sore throat, no difficulty swallowing. No chest pain currently. No nausea. Had an episode of vomiting earlier. Currently, no nausea, no abdominal pain. Normal bowel and bladder movements. No blood or black stools. No burning micturition. Usually ambulates without any help, but last 2 days getting short of breath on ambulation. Currently resting comfortably, somewhat tachycardic since she had a 1 hour neb treatment. Admission Exam (Per Admitting) Constitutional GENERAL: The patient is obese, not in acute distress. VITAL SIGNS: Temperature 36.9, pulse 102, respiratory rate 20, blood pressure 179/81, oxygen 94% room air. HEENT: No pallor, no icterus. Pupils equal, round, reactive to light. NECK: No JVD, no neck masses. Supple. CARDIOVASCULAR: S1, S2 heard. Tachycardia. No murmurs. RESPIRATORY SYSTEM: Normal AP diameter. No accessory muscle use, bilateral rhonchi heard. ABDOMEN: Soft, bowel sounds present. Nontender. No distention. CENTRAL NERVOUS SYSTEM: Cranial nerves II-XII grossly intact. Nonfocal. EXTREMITIES: Mild pitting erythema. Discharge Data Consultations 04/18/18 02:25 ED Decision to Admit Stat 04/18/18 03:46 Consult Case Management - Discharge Planning Routine Procedures Performed XR chest 1V portable CLINICAL HISTORY: 68 years-old Female presenting with cough, shob. TECHNIQUE: Portable upright AP view of the chest was obtained. COMPARISON: 02/07/2018. FINDINGS: Median sternotomy wires again noted. Cardiac silhouette top normal in size. Mild prominence of the main pulmonary artery. Pulmonary vasculature is also prominent with bronchial wall cuffing. No focal opacity. No large effusion or pneumothorax. Degenerative changes of the thoracic spine. Upper abdomen normal. IMPRESSION: 1. Cardiomegaly with volume overload/congestive change. No josh pulmonary e yasemin at this time. Electronically signed by: Morales Boone M.D. 04/18/2018 7:50 AM Dictated: 04/18/1853 Transcribed: 04/18/18652 Hospital Course (1) COPD exacerbation: Bronchitis Present on admission with SOB and cough CXR showed no focal opacity. No large effusion or pneumothorax. No leukocytosis and procalcitonin and blood cx are normal Was given doxycycline by last Tuesday with no relief Received Levaquin for 2 days Will D/C abx since there is no sign of bacterial infection or PNA on CXR Continue prednisone 40mg and neb treatment with Duoneb Continue Benzonatate 100mg TID Diabetes Type 2 BS was elevated due to steroid, now improved Most recent Hba1c 7.4 Pharmacy on board for glycemic management Continue monitor BS closely Coronary artery disease status post stent Currently asymptomatic Continue Aspirin, statin and metoprolol Upcoming appt with Cardiology Dr. Galdamez on 05/02/2018 3:30 at [facility] Stable paroxysmal atrial fibrillation Rate control Continue metoprolol On Coumadin with INR 1.5 today Continue coumadin 7.5 mg today and tomorrow Continue monitor PT/INR coumadin clinic as outpatient on 05/02/2018 2:00 PM Provider [facility] [place] [facility], [place] Follow up with coag clinic Hypothyroidism. continue levothyroxine Stable Hypertension BP elevates on beta norberto, Imdur, lisinopril. Continue monitor BP Follow up with PCP and adjust med if needed Chronic kidney disease stage III Acute Kidney Injury Creatinine 1.1 Baseline 0.9- 1.0 Continue Lisinopril Continue Monitor BMP Morbid obesity BMI 45 Counseling on diet and exercise Deep venous thrombosis prophylaxis On Coumadin. INR 1.5 today CODE STATUS FULL CODE Disposition Possible discharge today
--- NOTE | 2018-04-21 07:52 | Discharge Summary ---
Date of Service April 21, 2018 Admission HPI Per Admitting Provider CHIEF COMPLAINT: Shortness of breath. HISTORY OF PRESENT ILLNESS: This is a 68-year-old female with past medical history significant for diabetes, chronic kidney disease stage III, CAD, paroxysmal atrial fibrillation, hypertension, mitral stenosis, morbid obesity, psoriasis, presents with shortness of breath. The patient says she went to see her family doctor on last Tuesday, complained of shortness of breath and gave doxycycline for possible bronchitis, but it was not getting better and she came to the ER today. She says she is having cough with whitish phlegm. Cough pills are not working and walking short distance is making her short of breath. She uses oxygen while she is sleeping in the nighttime. She thinks that she had low grade fever today, had some chest pressure but that is gone now. She always keeps pillows while sleeping and keeps her head elevated. Denies any headache, has some dizziness, no blurred vision, no earache, no runny nose, no sore throat, no difficulty swallowing. No chest pain currently. No nausea. Had an episode of vomiting earlier. Currently, no nausea, no abdominal pain. Normal bowel and bladder movements. No blood or black stools. No burning micturition. Usually ambulates without any help, but last 2 days getting short of breath on ambulation. Currently resting comfortably, somewhat tachycardic since she had a 1 hour neb treatment. Admission Exam Per Admitting Provider GENERAL: The patient is obese, not in acute distress. VITAL SIGNS: Temperature 36.9, pulse 102, respiratory rate 20, blood pressure 179/81, oxygen 94% room air. HEENT: No pallor, no icterus. Pupils equal, round, reactive to light. NECK: No JVD, no neck masses. Supple. CARDIOVASCULAR: S1, S2 heard. Tachycardia. No murmurs. RESPIRATORY SYSTEM: Normal AP diameter. No accessory muscle use, bilateral rhonchi heard. ABDOMEN: Soft, bowel sounds present. Nontender. No distention. CENTRAL NERVOUS SYSTEM: Cranial nerves II-XII grossly intact. Nonfocal. EXTREMITIES: Mild pitting erythema. Principal Diagnosis Bronchitis/ COPD exacerbation Discharge Exam General- No acute distress Head- atraumatic Eyes- PERRL, EOMI, ENT- oropharynx clear Neck- supple, no JVD Lungs- +mild wheezing on expiratory Heart- regular rhythm; no murmur Abdomen- normal bowel sounds, soft, nontender Extremities- no calf tenderness Neuro- alert, oriented x 3; PERRL, EOMI; no facial palsy; no dysarthria Skin- warm & dry Discharge Data Allergies Allergy/AdvReac Type Severity Reaction Status Date / Time oxycodone Allergy Mild ITCHING ON Verified 04/18/18 01:21 BACK Iodinated Contrast- Oral and Allergy Unknown TEARS AND Verified 04/18/18 01:21 IV Dye FACE BECAME VERY REDDENED diltiazem AdvReac Unknown PAIN IN Verified 04/18/18 01:21 NECK Blood-Group Specific Allergy Unknown NO BLOOD Uncoded 04/18/18 01:21 Substance PRODUCTS Consultations 04/18/18 02:25 ED Decision to Admit Stat 04/18/18 03:46 Consult Case Management - Discharge Planning Routine Hospital Course (1) COPD exacerbation: Bronchitis Present on admission with SOB and cough CXR showed no focal opacity. No large effusion or pneumothorax. No leukocytosis and procalcitonin and blood cx are normal Was given doxycycline by last Tuesday with no relief Received Levaquin for 2 days Will D/C abx since there is no sign of bacterial infection or PNA on CXR Continue prednisone 40mg and neb treatment with Duoneb Continue Benzonatate 100mg TID Diabetes Type 2 BS was elevated due to steroid, now improved Most recent Hba1c 7.4 Pharmacy on board for glycemic management Continue monitor BS closely Coronary artery disease status post stent Currently asymptomatic Continue Aspirin, statin and metoprolol Upcoming appt with Cardiology Dr. Galdamez on 05/02/2018 3:30 at [facility] Stable paroxysmal atrial fibrillation Rate control Continue metoprolol On Coumadin with INR 1.5 today Continue coumadin 7.5 mg today and tomorrow Continue monitor PT/INR coumadin clinic as outpatient on 05/02/2018 2:00 PM Provider [facility] [place] [facility], [place] Follow up with coag clinic Hypothyroidism. continue levothyroxine Stable Hypertension BP elevates on beta norberto, Imdur, lisinopril. Continue monitor BP Follow up with PCP and adjust med if needed Chronic kidney disease stage III Acute Kidney Injury Creatinine 1.1 Baseline 0.9- 1.0 Continue Lisinopril Continue Monitor BMP Morbid obesity BMI 45 Counseling on diet and exercise Deep venous thrombosis prophylaxis On Coumadin. INR 1.5 today CODE STATUS FULL CODE Disposition Possible discharge today Total Time Total Time Spent Total Time Spent (In Minutes): 35 minutes Total Time Includes: Examination of the Patient, Discharge Planning, Medication Reconciliation, Communication With Other Providers and Other Discharge Plan Discharge Items Patient Disposition: Home - Self-Care Reason For Visit: SOB Discharge Diagnosis: Bronchitis/ COPD exacerbation Discharge Goals: Decrease discomfort, Improve disease control, Improve function and Increase independence Activity: Resume your previous activity Activity Comment: As tolerated Non-emergency contact: Primary Care Provider Call non-emergency contact if: your temperature is above 101 Diet: Carb Consistent or DM2 Addtl Provider Instructions: 04/26/2018 @ 12:45 PM follow up with Primary care provider Dr. [facility] 05/02/2018 @ 3:30 PM Follow up with cardiology Dr. Ceasar Galdamez Jr. Cardiology, [facility] Continue Coumadin daily Follow up with the Coumadin clinic to check PT/INR Continue Prednisone taper course Prescriptions: New guaifenesin [Coughtab] 200 mg Tablet 200 mg PO Q8 PRN (Reason: cold symptoms/cough) Qty: 15 RF: 0 ipratropium-albuterol 0.5 mg-3 mg(2.5 mg base)/3 mL solution for nebulization 3 ml INH Q8H PRN (Reason: wheezing) 30 Days Qty: 30 RF: 0 prednisone 10 mg tablet 10 mg PO UD 7 Days Qty: 20 RF: 0 Continued multivitamin Tablet 1 tab PO QAM RF: 0 atorvastatin 40 mg Tablet 40 mg PO HS RF: 0 levothyroxine 137 mcg Tablet 137 mcg PO QAM RF: 0 metoprolol tartrate [Lopressor] 100 mg Tablet 100 mg PO BID RF: 0 aspirin 81 mg Tablet,Delayed Release (Dr/Ec) 81 mg PO QAM RF: 0 isosorbide mononitrate 60 mg Tablet Extended Release 24 Hr 60 mg PO QAM RF: 0 warfarin 5 mg Tablet 5 mg PO 5XWK RF: 0 warfarin 5 mg Tablet 7.5 mg PO 2XWK RF: 0 insulin NPH isoph U-100 human [Humulin N NPH U-100 Insulin] 100 unit/mL Suspension 40 unit SUBCUT QAM RF: 0 insulin NPH isoph U-100 human [Humulin N NPH U-100 Insulin] 100 unit/mL Suspension 55 unit SUBCUT QPM RF: 0 montelukast [Singulair] 10 mg Tablet 10 mg PO QAM RF: 0 lisinopril 40 mg Tablet 40 mg PO HS RF: 0 insulin lispro [Humalog KwikPen Insulin] 100 unit/mL Insulin Pen 30 unit SUBCUT TID RF: 0 fenofibrate 160 mg Tablet 160 mg PO HS RF: 0 cholecalciferol (vitamin D3) [Vitamin D3] 2,000 unit Capsule 2,000 unit PO QAM RF: 0 omega [id number]-qdd-fish oil [[place]-3] 350 mg-235 mg- 90 mg-597 mg Capsule,Delayed Release(Dr/Ec) 1 cap PO QAM RF: 0 tramadol 50 mg tablet 50 mg PO Q6H PRN (Reason: pain) Qty: 15 RF: 0 benzonatate 100 mg Capsule 100 mg PO TID PRN (Reason: Cough) RF: 0 Discontinued doxycycline hyclate 100 mg Capsule 100 mg PO BID RF: 0 Stand-Alone Forms: [facility] Discharge Orders: Discharge Order (Routine); Ordered 04/20/18 Ordered By: Kati aVsquez Admission Data Admit Date/Time: 04/18/18 02:57 Attending Provider: Kati Vasquez Admit Provider: Jhonny Caballero Primary Care Provider: Katty Hand Other Providers: Jhonny Caballero ; Levar Beasley Service: Telemetry Medical Other Interventions: Discharge Summary Assessment (RN) Last Done: 04/20/18 17:46 DC Date/Time DO NOT enter until pt leaves facility: 04/20/18 18:39
== END 2018-04-20 18:39 | disposition home or self-care (01) | DRG 191 ==
LOC: ED 22:50 → 2W 04-18 02:57 → SUATTDRO 04-18 02:57 → 2W 04-18 03:35

== ENCOUNTER 2020-11-08 05:48 | Inpatient (IN) ==
[2020-11-08 06:41] LABS: Basophils # (auto) 0.02 K/uL (0-0.2); Basophils % (auto) 0.3 %; Eosinophils # (auto) 0.24 K/uL (0-0.5); Eosinophils % (auto) 3.3 %; Hematocrit (blood only) 42.6 % (37-47); Hemoglobin 13.9 g/dL (12.0-16.0); Immature Granulocytes # (auto) 0.01 K/uL (0.00-0.02); Immature Granulocytes % (auto) 0.1 %; Lymphocytes # (auto) 2.83 K/uL (1.2-3.4); Lymphocytes % (auto) 39.4 %; Mean Corpuscular Hemoglobin 31.9 pg (25-34); Mean Corpuscular Hgb Conc 32.6 g/dL (32-36); Mean Corpuscular Volume 97.7 fL (80-100); Mean Platelet Volume 11.7 fL (7.4-10.4); Monocytes # (auto) 0.72 K/uL (0.11-0.59); Neutrophils # (auto) 3.36 K/uL (1.4-6.5); Neutrophils % (auto) 46.9 %; Platelet Count 227 K/uL (130-400); RDW Coefficient of Variation 13.2 % (11.5-14.5); RDW Standard Deviation 47.1 fL (36.4-46.3); Red Blood Count 4.36 M/uL (4.2-5.4); White Blood Count 7.18 K/uL (4.8-10.8)
--- NOTE | 2020-11-08 06:52 | XRay Report ---
XR chest 1V portable CLINICAL HISTORY: chest pain COMPARISON STUDY: Chest CT February 07, 2018. Chest radiograph April 18, 2018. FINDINGS: There are median sternotomy wires. Lung volumes are normal. There is no pneumothorax or ple ural effusion. No consolidation is identified. There is mild interstitial thickening. Mild cardiomega ly is unchanged. IMPRESSION: Cardiomegaly. Mild interstitial thickening which favors pulmonary edema. An infectious pr ocess could appear similar although is considered less likely. ACT 112: Negative or not required by law. Electronically signed by: Chava Del Valle M.D. 11/08/2020 6:50 AM
[2020-11-08 06:59] LABS: Albumin Level 3.3 gm/dl (3.4-5.0); Calcium 9.2 mg/dl (8.5-10.1); Creatinine Clr Calc Pharmacy 38.9 ml/min; Est GFR (African American) 46.2 ml/min; Est GFR (Non-African American) 39.8 ml/min; Magnesium 1.9 mg/dl (1.8-2.4); Potassium 3.9 mmol/L (3.5-5.1)
[2020-11-08] MEDS ORDERED: LABETALOL HCL IV 5 MG/ML 20ML IV STA ×2 (07:00→10:51)
[2020-11-08] MEDS ORDERED: fentaNYL citrate 100 MCG/2 ML VIAL IV STA (07:01)
[2020-11-08] MEDS ORDERED: FUROSEMIDE 40 MG/4 ML VIAL IV STA (07:08)
[2020-11-08] MEDS ORDERED: NITROGLYCERIN SL 0.4 MG/TAB TAB SL STA (07:08)
[2020-11-08 07:18] LABS: Albumin Globulin Ratio 0.8 (0.9-2); Bilirubin,Total 0.7 mg/dl (0.2-1); Total Protein 7.3 gm/dl (6.4-8.2); Troponin I 0.137 ng/ml (0-0.045)
[2020-11-08 07:49] LABS: INR 1.7 (0.9-1.1); Partial Thromboplastin Ratio 1.4; Partial Thromboplastin Time 35.9 Seconds (21.0-31.0); Prothrombin Time 16.8 Seconds (9.0-12.0)
[2020-11-08] MEDS ORDERED: NITROGLYCERIN 2% OINTMENT 30GM TUBE EXT STA (08:48)
--- NOTE | 2020-11-08 08:53 | History & Physical Report ---
Date of Service November 08, 2020 Assessment & Plan (1) NSTEMI (non-ST elevated myocardial infarction): Plan: Concerning features of ACS including 2 weeks of unstable angina and ongoing chest pain despite 1 dose of nitro. Continue aggressive blood pressure control and pain management attempts. If unable to control pain, consider heart alert for cardiac catheterization. Patient is high risk with diabetes, obesity and a known history of coronary disease in the past. Will apply nitroglycerin 1 inch every 6 hours first dose now, would then attempt pain control with morphine or additional blood pressure control as needed and per hemodynamics. PCU admission, cardiology consulted. EDMUND risk score is 6, will discuss addition of heparin with cardiology. EKG daily. Mild troponin elevation, will trend serial troponins today. Lipids in a.m. From a medication standpoint she is taking aspirin 81, lisinopril 40 daily, Lopressor 100 twice daily, rosuvastatin 40, ezetimibe 10, fenofibrate 54, and Imdur for 60mg day. Will cont home regimen. (2) Hypertensive crisis: Plan: Dietary indiscretions with noted [employer] overnight. Blood pressure over 200 now reduced to 179 systolic with parenteral agents in the ER. Patient still having chest pain, continue with nitroglycerin and home medications. We will use parenteral agents as needed. (3) Acute diastolic heart failure: Plan: Pulmonary congestion seen on chest x-ray, pulmonary exam with crackles at bases bilaterally and 1+ peripheral edema bilaterally. She is not noting a significant decline in functional status or is significant weight gain but appears hypervolemic on exam. Heart failure likely related to #2. She received Lasix in the ER which is working. She is Lasix stephanie. Strict ins and O's, low- salt diet, daily standing weights. Added nitro paste now. (4) Type 2 diabetes mellitus, with long-term current use of insulin: Plan: Complications include retinopathy and nephropathy. She is monitored by endocrinology at [facility]. Recent A1c was 7.1 in May 2020. Overall longstanding good control. Continue basal bolus insulin while admitted (5) Morbid obesity: Plan: We discussed how morbid obesity and diabetes as just 2 examples increase her risk of complications of COVID-19. We discussed the importance of vaccination. It is overall important especially with a history of hepatic steatosis, to work to change lifestyle for goal of decreased adipose tissue and increased lean muscle mass generally. (6) Psoriasis: Plan: No medications at this time. (7) DVT prophylaxis: Plan: Hold home warfarin, heparin drip in setting of ACS Full Code Dispo-to PCU, cased discussed with Dr. Gilbert Nair [facility] Hospitalist History of Present Illness Chief Complaint: Worsening chest pain over the last 2 weeks Primary Care Provider: Jessica Daugherty MD The patient is a 70-year-old obese diabetic female with a history of cardiac disease status post bypass surgery and stent placement, paroxysmal atrial fibrillation and valve disease who presents with worsening chest pain over the last 2 weeks. She reports episodes occurring approximately 5 times per day, occurring at rest mostly. She denies any known triggers for pain and they resolve with time. She denies any associated shortness of breath, lightheadedness, palpitations, diaphoresis. She denies any chest pain prior to these 2-week. She denies any medication changes. She has complications of long-term insulin-dependent diabetes which is well controlled with a hemoglobin A1c of 7.1 in May. When she arrived in the emergency room she was hypertensive and reported eating [employer] prior to arrival. However, she denies having a high salt diet and works to avoid extra salt. Blood pressure on arrival was 217/93. She received labetalol 10 mg IV, fentanyl 50 mcg IV, nitro 0.4 sublingual and Lasix 40 mg IV. Blood pressure is now 179/71. Chest pain is still a 4 out of 10. She otherwise denies any headache, fevers, chills, Covid symptoms such as cough or other respiratory symptoms, swelling or weight gain, no other GI symptoms. She is not vaccinated against Covid 19 and we reviewed her risk factors and benefits of considering the vaccination Allergies Allergy/AdvReac Type Severity Reaction Status Date / Time oxycodone Allergy Mild itchy Verified 11/08/20 07:57 Iodinated Contrast Media Allergy Unknown TEARS AND Verified 11/08/20 07:57 FACE BECAME VERY REDDENED diltiazem AdvReac Unknown Unknown Verified 11/08/20 07:57 Blood-Group Specific Allergy Unknown NO BLOOD Uncoded 11/08/20 07:57 Substance PRODUCTS Home Medications Medication Instructions Recorded Confirmed Type aspirin 81 mg tablet,delayed 81 mg PO QAM 02/07/18 11/08/20 History release cholecalciferol (vitamin D3) 50 2,000 unit PO QAM 02/07/18 11/08/20 History mcg (2,000 unit) capsule (Vitamin D3) isosorbide mononitrate 60 mg 60 mg PO QAM 02/07/18 11/08/20 History tablet,extended release 24 hr metoprolol tartrate 100 mg tablet 100 mg PO BID 02/07/18 11/08/20 History (Lopressor) multivitamin 1 tab PO QAM 02/07/18 11/08/20 History rosuvastatin 40 mg tablet 40 mg PO HS 08/09/18 11/08/20 History lisinopril 40 mg tablet 40 mg PO HS tab 09/19/18 11/08/20 History omega-3 fatty acids-fish oil 684 4 cap PO QAM cap 09/19/18 11/08/20 History mg-1,200 mg capsule,delayed release warfarin 5 mg tablet 5 mg PO HS 09/19/18 11/08/20 History ezetimibe 10 mg tablet 10 mg PO DAILY 04/05/19 11/08/20 History montelukast 10 mg tablet 10 mg PO DAILY tab 04/05/19 11/08/20 History (Singulair) acetaminophen 650 mg 650 mg PO ONCE PRN tab 12/06/19 11/08/20 History tablet,extended release (Tylenol Arthritis Pain) fenofibrate 54 mg tablet 54 mg PO DAILY 04/24/20 11/08/20 History Humalog KwikPen Insulin 100 See Rx Instructions SQ TID #90 ml 06/23/20 11/08/20 Rx unit/mL subcutaneous (insulin NS lispro) Lantus Solostar U-100 Insulin 100 See Rx Instructions SQ DAILY #30 06/23/20 11/08/20 Rx unit/mL (3 mL) subcutaneous pen ml NS (insulin glargine) levothyroxine 125 mcg tablet 125 mcg PO QAM #90 tab 09/22/20 11/08/20 Rx Past Med/Surg History Medical History Allergy desensitization therapy Atrial fibrillation controlled with medication Bronchitis hx CHF (congestive heart failure) Chronic kidney disease, stage III (moderate) Dr Patten Colon polyp Diabetes mellitus, type 2 IDDM Hyperlipidemia Hypertension Hypertriglyceridemia Hypothyroidism Myocardial Infarction September 2004 On anticoagulant therapy On home oxygen therapy 2lpm via n/c at HS Osteoarthritis Pyelonephritis Retinopathy Sleep apnea oxygen only at HS Transient ischemic attack (TIA) ~10 years ago Tubular adenoma of colon Vertigo hx Surgical History H/O colonoscopy History of appendectomy History of cardiac cath 2004 History of cataract surgery left History of section History of heart artery stent x2 stents (2004) [facility] Hx of CABG x1 vessel (2004) [facility] Family History (Updated 11/08/20 @ 08:55 by Odalys Nair DO) Father Diabetes Social History Smoking Status: Never smoker Second Hand Exposure: Yes (hx as a child); Hx Alcohol Use: No Hx Substance Use: No Preferred Language: Chinese Communication Ability: Effective Optical Worker Required: No Beliefs That Will Affect Care: Yazdanism Yazdanism Beliefs: PENTECOSTAL marital status: / Current Living Situation: Alone Feels Safe at Home: Yes Assistive Devices: Denture - Upper, Glasses, Nebulizer and Oxygen - at Night Review of Systems Review of Systems: At least ten systems were reviewed and negative except as indicated in HPI above. Physical Exam Physical Exam: CONSTITUTIONAL: obese, vitals as above, generally well- appearing, no respiratory distress, oxygenating 95% on room air EYES: PERRL, normal conjunctivae, no scleral icterus ENT: external ear and nose normal, oropharynx clear, MMM NECK: trachea midline, no JVD RESPIRATORY: +crackles at bases, no rales or wheezes, normal respiratory effort CARDIOVASCULAR: regular rate and rhythm, S1 and 2 heard without murmurs, gallops or rubs, no JVD, 1+ peripheral edema in lower extremities bilaterally CHEST: inspection of chest was normal GASTROINTESTINAL: soft, nontender, nondistended, protuberant, no guarding MUSCULOSKELETAL: strength 5/5 throughout, ambulates independently, head is normocephalic and atraumatic SKIN: warm and dry, psoriasis plaque noted on right distal arm NEUROLOGIC: CN 2-12 grossly intact, no sensory deficit, normal cognition, normal speech, no tremor PSYCHIATRIC: alert cooperative and oriented to person, place and time. Results & Data Results & Data ([facility]) Vital Signs (Past 12 Hours) Vital Signs Temp Pulse Resp BP BP Pulse Ox 11/08/20 07:31 90 21 179/71 H 95 11/08/20 07:00 92 H 22 198/99 H 96 11/08/20 06:43 199/91 H 11/08/20 06:36 36.6 C 91 H 20 197/126 H 95 11/08/20 06:30 93 H 15 199/91 H 96 11/08/20 06:01 99 H 20 217/93 H 95 Laboratory Results Short CBC 11/08/20 Range/Units 06:00 WBC 7.18 (4.8-10.8) K/uL Hgb 13.9 (12.0-16.0) g/dL Hct 42.6 (37-47) % Plt Count 227 (130-400) K/uL BMP 11/08/20 06:00 Sodium 141 Potassium 3.9 Chloride 106 Carbon Dioxide 29 BUN 35 H Creatinine 1.33 H Glucose 191 H Calcium 9.2 Cardiac Enzymes 11/08/20 Range/Units 06:00 Troponin I 0.137 H* (0-0.045) ng/ml Liver Function 11/08/20 Range/Units 06:00 Total Bilirubin 0.7 (0.2-1) mg/dl AST 45 H (15-37) U/L ALT 35 (12-78) U/L Alkaline Phosphatase 73 (45-117) U/L Albumin 3.3 L (3.4-5.0) gm/dl ECG Additional Comments: ST 103bpm, LAD, IRBBB, no evidence of acute ischemia Code Status & VTE Plan VTE Prophylaxis Plan VTE Prophylaxis will be ordered: Yes
[2020-11-08] MEDS ORDERED: Heparin IV Adult Wt-Based Standard *NO* Bolus Protocol IV SCH (09:17)
[2020-11-08] MEDS ORDERED: ASPIRIN CHEW 324 MG PO STA (09:30)
--- NOTE | 2020-11-08 09:44 | Cardiology Consultation ---
Date of Consultation November 08, 2020 Assessment & Plan (1) Hypertensive crisis: (2) Acute diastolic heart failure: (3) Morbid obesity: (4) Type 2 diabetes mellitus with complications: (5) CKD (chronic kidney disease) stage 3, GFR 30-59 ml/min: (6) Elevated troponin: I agree with the current management. The patient is actually feeling better after she diuresed from the Lasix. I think managing her hypertensive crisis is the most appropriate thing to do at this time. I think her troponin elevation is most likely due to strain. I believe that she is HFpEF with acute diastolic heart failure and should be treated appropriately. Topical nitrates, analgesia and IV diuretics. Continue her other medications including metoprolol and lisinopril. I would put her on IV heparin at this time and warfarin can be readded once for sure the patient will be going to any procedures. History of Present Illness History of Present Illness This is a 70-year-old obese, diabetic, with chronic renal insufficiency, a rteriosclerotic vascular disease including peripheral vascular disease and previous coronary artery bypass surgery. She also has a history of paroxysmal atrial fibrillation for which she is chronically anticoagulated. She is usually followed by Dr. Galdamez who saw her in May and things seem to be going well at that time. Over the past few days the patient has had some dietary indiscretion due to the wedding of her great niece. She presented to the emergency department with ongoing rest pain which has been present off and on for several weeks. She has also noticed some fatigue and decreased activity due to shortness of breath. On presentation to the ED she was found to be markedly hypertensive. She has been treated with IV Lasix, fentanyl and nitroglycerin which has improved her discomfort as well as her blood pressure. Her BNP is 800 and she has a slight bump in her cardiac troponins most likely due to strain. Her EKG shows no acute changes and she is currently in a sinus mechanism. PAST MEDICAL HISTORY: 1.Coronary artery disease, status post non-ST segment elevation NE in 2004, for which she underwent vein graft to the LAD along with PCI to the circumflex. 2.Obesity. 3.Mitral annular calcification, causing stenosis. 4.Diabetes. 5.Dyslipidemia. 6.Chronic kidney disease. 7.Peripheral arterial disease. 8.Chronic venous insufficiency. 9. Paroxysmal atrial fibrillation on chronic Coumadin therapy Allergies Allergy/AdvReac Type Severity Reaction Status Date / Time oxycodone Allergy Mild itchy Verified 11/08/20 07:57 Iodinated Contrast Media Allergy Unknown TEARS AND Verified 11/08/20 07:57 FACE BECAME VERY REDDENED diltiazem AdvReac Unknown Unknown Verified 11/08/20 07:57 Blood-Group Specific Allergy Unknown NO BLOOD Uncoded 11/08/20 07:57 Substance PRODUCTS Home Medications Medication Instructions Recorded Confirmed Type aspirin 81 mg tablet,delayed 81 mg PO QAM 02/07/18 11/08/20 History release cholecalciferol (vitamin D3) 50 2,000 unit PO QAM 02/07/18 11/08/20 History mcg (2,000 unit) capsule (Vitamin D3) isosorbide mononitrate 60 mg 60 mg PO QAM 02/07/18 11/08/20 History tablet,extended release 24 hr metoprolol tartrate 100 mg tablet 100 mg PO BID 02/07/18 11/08/20 History (Lopressor) multivitamin 1 tab PO QAM 02/07/18 11/08/20 History rosuvastatin 40 mg tablet 40 mg PO HS 08/09/18 11/08/20 History lisinopril 40 mg tablet 40 mg PO HS tab 09/19/18 11/08/20 History omega-3 fatty acids-fish oil 684 4 cap PO QAM cap 09/19/18 11/08/20 History mg-1,200 mg capsule,delayed release warfarin 5 mg tablet 5 mg PO HS 09/19/18 11/08/20 History ezetimibe 10 mg tablet 10 mg PO DAILY 04/05/19 11/08/20 History montelukast 10 mg tablet 10 mg PO DAILY tab 04/05/19 11/08/20 History (Singulair) acetaminophen 650 mg 650 mg PO ONCE PRN tab 12/06/19 11/08/20 History tablet,extended release (Tylenol Arthritis Pain) fenofibrate 54 mg tablet 54 mg PO DAILY 04/24/20 11/08/20 History Humalog KwikPen Insulin 100 See Rx Instructions SQ TID #90 ml 06/23/20 11/08/20 Rx unit/mL subcutaneous (insulin NS lispro) Lantus Solostar U-100 Insulin 100 See Rx Instructions SQ DAILY #30 05/03/21 09/18/21 Rx unit/mL (3 mL) subcutaneous pen ml NS (insulin glargine) levothyroxine 125 mcg tablet 125 mcg PO QAM #90 tab 09/22/20 11/08/20 Rx Patient History Medical History Allergy desensitization therapy Atrial fibrillation controlled with medication Bronchitis hx CHF (congestive heart failure) Chronic kidney disease, stage III (moderate) Dr Patten Colon polyp Diabetes mellitus, type 2 IDDM Hyperlipidemia Hypertension Hypertriglyceridemia Hypothyroidism Myocardial Infarction September 2004 On anticoagulant therapy On home oxygen therapy 2lpm via n/c at HS Osteoarthritis Pyelonephritis Retinopathy Sleep apnea oxygen only at HS Transient ischemic attack (TIA) ~10 years ago Tubular adenoma of colon Vertigo hx Surgical History H/O colonoscopy History of appendectomy History of cardiac cath 2004 History of cataract surgery left History of section History of heart artery stent x2 stents (2004) [facility] Hx of CABG x1 vessel (2004) [facility] Family History Father Diabetes Social History Smoking Status: Never smoker Second Hand Exposure: No; Do You Dip or Chew Tobacco: No; Tobacco Cessation Education Requested by Patient: No Hx Alcohol Use: No Hx Substance Use: No Preferred Language: Canadian Communication Ability: Effective Breast Splitter Required: No Beliefs That Will Affect Care: Spiritual marital status: / Current Living Situation: Alone Other Information That Helps Us Care for You: No Feels Safe at Home: Yes Safety Concerns: Feels Safe At This Time Assistive Devices: Denture - Upper, Glasses and Oxygen - at Night Review of Systems Review of Systems: Review of Systems: See HPI for pertinent positives. All other 10 point review of systems are negative. Physical Exam Physical Exam: General: no acute distress and stated age Head: normocephalic, no masses, lesions, tenderness or abnormalities Eyes: conjunctiva are pink and non-injected, sclera clear Neck: supple, no adenopathy, no bruits, normal jugular venous pulse, no hepatojugular reflux Chest: normal shape and normal respiratory effort Lungs: clear to auscultation and percussion Cardiac Exam: - regular rate & rhythm, no murmurs gallops or rubs - normal S1, normal S2 Pulses: 2(+) throughout Abdomen: abdomen soft, non-tender, no abnormal masses and no hepatosplenomegaly Musculoskeletal: no gait disturbance, no joint inflammation, no deforming arthritis Extremities: no edema and no cyanosis Neuro: grossly normal exam Results & Data ([facility]) Vital Signs (Past 12 Hours) Vital Signs Temp Pulse Resp BP BP Pulse Ox 11/08/20 09:30 93 H 20 175/81 H 96 11/08/20 09:20 90 17 95 11/08/20 09:10 89 17 95 11/08/20 09:00 90 20 95 11/08/20 08:40 92 H 16 98 11/08/20 08:30 90 22 96 11/08/20 08:20 89 18 96 11/08/20 08:10 90 16 96 11/08/20 08:01 95 H 18 95 11/08/20 07:31 90 21 179/71 H 95 11/08/20 07:00 92 H 22 198/99 H 96 11/08/20 06:43 199/91 H 11/08/20 06:36 36.6 C 91 H 20 197/126 H 95 11/08/20 06:30 93 H 15 199/91 H 96 11/08/20 06:01 99 H 20 217/93 H 95 Laboratory Results Laboratory Results - last 24 hr 11/08/20 11/08/20 11/08/20 06:00 06:00 06:05 WBC 7.18 RBC 4.36 Hgb 13.9 Hct 42.6 MCV 97.7 MCH 31.9 MCHC 32.6 RDW Std Deviation 47.1 H RDW Coeff of Ree 13.2 Plt Count 227 MPV 11.7 H Immature Gran % (Auto) 0.1 Neut % (Auto) 46.9 Lymph % (Auto) 39.4 Cooper % (Auto) 10.0 Eos % (Auto) 3.3 Baso % (Auto) 0.3 Neut # (Auto) 3.36 Lymph # (Auto) 2.83 Cooper # (Auto) 0.72 H Eos # (Auto) 0.24 Baso # (Auto) 0.02 Immature Gran # (Auto) 0.01 PT 16.8 H INR 1.7 H APTT 35.9 H PTT Ratio 1.4 Sodium 141 Potassium 3.9 Chloride 106 Carbon Dioxide 29 Anion Gap 6.0 BUN 35 H Creatinine 1.33 H Est Cr Clr Drug Dosing 38.9 Est GFR ( Amer) 46.2 Est GFR (Non-Af Amer) 39.8 BUN/Creatinine Ratio 26.0 H Glucose 191 H Calcium 9.2 Magnesium 1.9 Total Bilirubin 0.7 AST 45 H ALT 35 Alkaline Phosphatase 73 Troponin I 0.137 H* NT-Pro-B Natriuret Pep 869 Total Protein 7.3 Albumin 3.3 L Globulin 4.0 Albumin/Globulin Ratio 0.8 L Lipase 183 COVID-19 Eval Order SARS-CoV-2 (PCR) 11/08/20 11/08/20 07:40 07:40 WBC RBC Hgb Hct MCV MCH MCHC RDW Std Deviation RDW Coeff of Ree Plt Count MPV Immature Gran % (Auto) Neut % (Auto) Lymph % (Auto) Cooper % (Auto) Eos % (Auto) Baso % (Auto) Neut # (Auto) Lymph # (Auto) Cooper # (Auto) Eos # (Auto) Baso # (Auto) Immature Gran # (Auto) PT INR APTT PTT Ratio Sodium Potassium Chloride Carbon Dioxide Anion Gap BUN Creatinine Est Cr Clr Drug Dosing Est GFR ( Amer) Est GFR (Non-Af Amer) BUN/Creatinine Ratio Glucose Calcium Magnesium Total Bilirubin AST ALT Alkaline Phosphatase Troponin I NT-Pro-B Natriuret Pep Total Protein Albumin Globulin Albumin/Globulin Ratio Lipase COVID-19 Eval Order Covid19 at [facility] SARS-CoV-2 (PCR) NEGATIVE Medications Administered Current Inpatient Medications Heparin Sodium/Dextrose (Heparin Sodium/Dextrose) 25,000 units in 500 mls @ 23 mls/hr IV .[id number] [facility]; Protocol Stop: 12/08/20 09:44 ECG Additional Comments: Reveals a sinus rhythm with an incomplete right bundle branch block
[2020-11-08] MEDS ORDERED: HEPARIN SODIUM/DEXTROSE 25,000 UNITS/500 ML BAG IV SCH (09:45)
[2020-11-08] MEDS ORDERED: GLUCOSE 40% GEL 15 GM TUBE PO PRN (10:19)
[2020-11-08] MEDS ORDERED: GLUCAGON FOR INJ 1 MG VIAL SQ PRN (10:19)
[2020-11-08] MEDS ORDERED: ONDANSETRON INJ 2 MG/ML 2 ML VIAL IV PRN (10:19)
[2020-11-08] MEDS ORDERED: CARBOHYDRATES FOR HYPOGLYCEMIA PO PRN (10:19)
[2020-11-08] MEDS ORDERED: DEXTROSE 50% 50 ML SYRINGE IV PRN (10:19)
[2020-11-08] MEDS ORDERED: ACETAMINOPHEN 325 MG TAB PO PRN (10:19)
[2020-11-08] MEDS ORDERED: NITROGLYCERIN SL 0.4 MG/TAB TAB SL PRN (10:19)
[2020-11-08] MEDS ORDERED: GLUCOSE 10 TABS/TUBE PO PRN (10:19)
[2020-11-08] MEDS ORDERED: POLYETHYLENE (MIRALAX) 17 GM PACK PO PRN (10:19)
[2020-11-08] MEDS: INSULIN GLARGINE SOLOSTAR 100 UNITS/ML 3 ML PEN SC SCH ×2 (12:32→20:37)
[2020-11-08] MEDS: INSULIN ASPART 100 UNITS/ML 3 ML PEN SC SCH ×3 (12:33→20:36)
[2020-11-08 13:30] LABS: Estimated Average Glucose 151 mg/dl; Hemoglobin A1C 6.9 % (4.5-5.6)
--- NOTE | 2020-11-08 14:26 | Emergency Department Note ---
History of Present Illness General Chief complaint: Chest Pain Stated complaint: CHEST PAIN/NAUSEA Time Seen by Provider: 11/08/20 06:43 Source: patient and RN notes reviewed Mode of arrival: ambulatory Limitations: no limitations History of Present Illness Provider complaint: Chest pain, nausea Maximum Pain Intensity: 0 This patient is a 70-year-old female who presents emergency department with complaints of substernal chest discomfort, nausea and some shortness of breath. Patient states that she has not experienced discomfort in the chest like this and is concerned that maybe her heart. However she notes that she has had intermittent chest pain for the last several weeks. Patient does have a history of CAD as well as atrial fibrillation. She does take Coumadin. She denies any recent fevers, chills, vomiting or diarrhea. Patient states she had [place] fried chicken for dinner, but does states she tries to avoid salty foods. Patient also notes that her blood pressure is elevated. Home Medications Medication Instructions Recorded Confirmed Type aspirin 81 mg tablet,delayed 81 mg PO QAM 02/07/18 11/08/20 History release cholecalciferol (vitamin D3) 50 2,000 unit PO QAM 02/07/18 11/08/20 History mcg (2,000 unit) capsule (Vitamin D3) metoprolol tartrate 100 mg tablet 100 mg PO BID 02/07/18 11/08/20 History (Lopressor) multivitamin 1 tab PO QAM 02/07/18 11/08/20 History rosuvastatin 40 mg tablet 40 mg PO HS 08/09/18 11/08/20 History lisinopril 40 mg tablet 40 mg PO HS tab 09/19/18 11/08/20 History omega-3 fatty acids-fish oil 684 4 cap PO QAM cap 09/19/18 11/08/20 History mg-1,200 mg capsule,delayed release warfarin 5 mg tablet 5 mg PO HS 09/19/18 11/08/20 History ezetimibe 10 mg tablet 10 mg PO DAILY 04/05/19 11/08/20 History montelukast 10 mg tablet 10 mg PO DAILY tab 04/05/19 11/08/20 History (Singulair) acetaminophen 650 mg 650 mg PO ONCE PRN tab 12/06/19 11/08/20 History tablet,extended release (Tylenol Arthritis Pain) fenofibrate 54 mg tablet 54 mg PO DAILY 04/24/20 11/08/20 History Humalog KwikPen Insulin 100 See Rx Instructions SQ TID #90 ml 06/23/20 11/08/20 Rx unit/mL subcutaneous (insulin NS lispro) Lantus Solostar U-100 Insulin 100 See Rx Instructions SQ DAILY #30 06/23/20 11/08/20 Rx unit/mL (3 mL) subcutaneous pen ml NS (insulin glargine) levothyroxine 125 mcg tablet 125 mcg PO QAM #90 tab 09/22/20 11/08/20 Rx clopidogrel 75 mg tablet 75 mg PO QAM #30 tab 11/13/20 Rx isosorbide mononitrate 30 mg 30 mg PO QAM #30 tab 11/13/20 Rx tablet,extended release 24 hr pantoprazole 40 mg tablet,delayed 40 mg PO DAILY #7 tab 11/13/20 Rx release Allergies Allergy/AdvReac Type Severity Reaction Status Date / Time oxycodone Allergy Mild itchy Verified 11/08/20 07:57 Iodinated Contrast Media Allergy Unknown TEARS AND Verified 11/08/20 07:57 FACE BECAME VERY REDDENED diltiazem AdvReac Unknown Unknown Verified 11/08/20 07:57 Blood-Group Specific Allergy Unknown NO BLOOD Uncoded 11/08/20 07:57 Substance PRODUCTS Past Med/Surg History Medical History Allergy desensitization therapy Atrial fibrillation controlled with medication Bronchitis hx CHF (congestive heart failure) Chronic kidney disease, stage III (moderate) Dr Patten Colon polyp Diabetes mellitus, type 2 IDDM Hyperlipidemia Hypertension Hypertriglyceridemia Hypothyroidism Myocardial Infarction September 2004 On anticoagulant therapy On home oxygen therapy 2lpm via n/c at HS Osteoarthritis Pyelonephritis Retinopathy Sleep apnea oxygen only at HS Transient ischemic attack (TIA) ~10 years ago Tubular adenoma of colon Vertigo hx Surgical History H/O colonoscopy History of appendectomy History of cardiac cath 2004 History of cataract surgery left History of section History of heart artery stent x2 stents (2004) STACEY Eduardo Hx of CABG x1 vessel (2004) STACEY Eduardo Family History Father Diabetes Social History Smoking Status: Never smoker Second Hand Exposure: No; Hx Alcohol Use: No Hx Substance Use: No Preferred Language: Italian Communication Ability: Effective 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 and A total of 10 systems reviewed and were otherwise negative Physical Exam Vital Signs Vital Signs - 24 hr 11/08/20 06:01 11/08/20 06:30 11/08/20 06:35 Temperature Temperature Source Pulse Rate 99 H 93 H Pulse Rate from SpO2 Sensor 99 H 93 H Respiratory Rate 20 15 Respiratory Effort / Characteristics Short of Breath Blood Pressure 217/93 H 199/91 H Blood Pressure [Right Arm] Blood Pressure Mean 134 127 Blood Pressure Mean [Right Arm] Pulse Oximetry 95 96 Oxygen Delivery Method Room Air Sepsis Recent Fever Within 48 Hours Sepsis New/Unexplained Change in Mental Status Sepsis Action Taken by Nursing 11/08/20 06:36 11/08/20 06:43 11/08/20 07:00 Temperature 36.6 C Temperature Source Oral Pulse Rate 91 H 92 H Pulse Rate from SpO2 Sensor 93 H Respiratory Rate 20 22 Respiratory Effort / Characteristics Blood Pressure 197/126 H 198/99 H Blood Pressure [Right Arm] 199/91 H Blood Pressure Mean 149 132 Blood Pressure Mean [Right Arm] 127 Pulse Oximetry 95 96 Oxygen Delivery Method Room Air Sepsis Recent Fever Within 48 Hours No Sepsis New/Unexplained Change in Mental Status N/A Sepsis Action Taken by Nursing No Action Required 11/08/20 07:31 11/08/20 08:01 11/08/20 08:10 Temperature Temperature Source Pulse Rate 90 95 H 90 Pulse Rate from SpO2 Sensor 90 95 H 90 Respiratory Rate 21 18 16 Respiratory Effort / Characteristics Blood Pressure 179/71 H Blood Pressure [Right Arm] Blood Pressure Mean 107 Blood Pressure Mean [Right Arm] Pulse Oximetry 95 95 96 Oxygen Delivery Method Room Air Room Air Sepsis Recent Fever Within 48 Hours Sepsis New/Unexplained Change in Mental Status Sepsis Action Taken by Nursing Vital signs reviewed. Noted to be markedly hypertensive General: Chronically ill-appearing, obese 70-year-old female, in no significant distress. HEENT: No scleral icterus, PERRLA, neck supple. Cardiovascular: Regular but tachycardic, no extra sounds. Pulmonary: Clear to auscultation bilaterally, normal work of breathing. Abdomen: Soft, obese, nontender, nondistended, positive bowel sounds. Musculoskeletal: Atraumatic, moderate peripheral edema. Neurologic: Patient awake alert and oriented x 3 Skin: Warm, dry, no rash Course Administered Medications Discontinued Medications Aspirin (Aspirin Chew 324 Mg) 324 mg PO NOW STA Stop: 11/08/20 09:31 Last Admin: 11/08/20 09:48 Dose: 324 mg Documented by: [id number] Aspirin (Aspirin 81 Mg Ectab) 81 mg PO [facility] Stop: 12/09/20 08:59 Last Admin: 11/13/20 08:50 Dose: 81 mg Documented by: [id number] Admin: 11/12/20 08:25 Dose: 81 mg Documented by: [id number] Admin: 11/11/20 08:25 Dose: 81 mg Documented by: [id number] Admin: 11/10/20 07:36 Dose: 81 mg Documented by: [id number] Admin: 11/09/20 08:25 Dose: 81 mg Documented by: [id number] Clopidogrel Bisulfate (Clopidogrel Bisulfate 300 Mg Tab) Confirm Administered Dose 600 mg .ROUTE .STK-MED ONE Stop: 11/12/20 17:04 Last Admin: 11/12/20 17:06 Dose: 600 mg Documented by: [id number] Clopidogrel Bisulfate (Clopidogrel Bisulfate 75 Mg Tab) 75 mg PO [facility] Stop: 12/13/20 08:59 Last Admin: 11/13/20 08:50 Dose: 75 mg Documented by: [id number] Phytonadione 1 mg/ Sucrose 2. 25 ml/ Microcrystalline Cellulose 2.25 ml/ BARCODE IDENTIFIER 1 ea 0 mg PO ONE ONE Stop: 11/12/20 10:16 Last Admin: 11/12/20 11:40 Dose: 2.25 ml Documented by: [id number] Diphenhydramine HCl (Diphenhydramine Capsule 25 Mg Cap) 25 mg PO NOW ONE Stop: 11/09/20 06:19 Last Admin: 11/09/20 09:05 Dose: Not Given Documented by: [id number] Diphenhydramine HCl (Diphenhydramine 50 Mg/Ml Vial) 25 mg IV NOW STA Stop: 11/10/20 10:40 Last Admin: 11/10/20 11:08 Dose: 25 mg Documented by: [id number] Diphenhydramine HCl (Diphenhydramine 50 Mg/Ml Vial) Confirm Administered Dose 50 mg .ROUTE .STK-MED ONE Stop: 11/12/20 14:28 Last Admin: 11/12/20 17:02 Dose: 50 mg Documented by: [id number] Ezetimibe (Ezetimibe 10 Mg Tablet) 10 mg PO DAILY [facility] Stop: 12/09/20 08:59 Last Admin: 11/13/20 08:50 Dose: 10 mg Documented by: [id number] Admin: 11/12/20 08:25 Dose: 10 mg Documented by: [id number] Admin: 11/11/20 08:25 Dose: 10 mg Documented by: [id number] Admin: 11/10/20 07:34 Dose: 10 mg Documented by: [id number] Admin: 11/09/20 08:25 Dose: 10 mg Documented by: [id number] Fenofibrate (Fenofibrate Nanocrystallized 48 Mg Tablet) 48 mg PO DAILY [facility] Stop: 12/09/20 08:59 Last Admin: 11/13/20 08:50 Dose: 48 mg Documented by: [id number] Admin: 11/12/20 08:25 Dose: 48 mg Documented by: [id number] Admin: 11/11/20 08:25 Dose: 48 mg Documented by: [id number] Admin: 11/10/20 07:36 Dose: 48 mg Documented by: [id number] Admin: 11/09/20 08:24 Dose: 48 mg Documented by: [id number] Fentanyl Citrate (Fentanyl Citrate 100 Mcg/2 Ml Vial) 50 mcg IV NOW [facility] Stop: 11/08/20 07:02 Last Admin: 11/08/20 07:36 Dose: 50 mcg Documented by: [id number] Fentanyl Citrate (Fentanyl Citrate 100 Mcg/2 Ml Vial) Confirm Administered Dose 100 mcg .ROUTE .STK-MED ONE Stop: 11/10/20 10:53 Last Admin: 11/10/20 11:47 Dose: Not Given Documented by: [id number] Fentanyl Citrate (Fentanyl Citrate 100 Mcg/2 Ml Vial) Confirm Administered Dose 100 mcg .ROUTE .STK-MED ONE Stop: 11/12/20 14:25 Last Increment: 11/12/20 17:00 Dose: 50 mcg Documented by: [id number] Fish Oil ([place]-3 (Purified Fish Oil) 1 Gm Cap) 4 gm PO QAM JAS[facility] Stop: 12/09/20 08:59 Last Admin: 11/13/20 08:49 Dose: 4 gm Documented by: [id number] Admin: 11/12/20 08:25 Dose: 4 gm Documented by: [id number] Admin: 11/11/20 08:25 Dose: 4 gm Documented by: [id number] Admin: 11/10/20 07:34 Dose: 4 gm Documented by: [id number] Admin: 11/09/20 08:26 Dose: 4 gm Documented by: [id number] Furosemide (Furosemide 40 Mg/4 Ml Vial) 40 mg IV NOW STA Stop: 11/08/20 07:09 Last Admin: 11/08/20 07:37 Dose: 40 mg Documented by: [id number] Furosemide (Furosemide 40 Mg/4 Ml Vial) Confirm Administered Dose 40 mg IV .STK- MED ONE Stop: 11/11/20 11:33 Last Admin: 11/11/20 11:35 Dose: 40 mg Documented by: [id number] Heparin Sodium (Porcine) (Heparin (Porcine) 1000 Unit/Ml 10 Ml (Nuclear Equipment Research Engineer Use Only)) Confirm Administered Dose 10,000 units .ROUTE .STK-MED ONE Stop: 11/10/20 10:53 Last Admin: 11/10/20 11:47 Dose: Not Given Documented by: [id number] Heparin Sodium (Porcine) (Heparin (Porcine) 1000 Unit/Ml 10 Ml (Nuclear Equipment Research Engineer Use Only)) Confirm Administered Dose 10,000 units .ROUTE .STK-MED ONE Stop: 11/12/20 14:25 Last Admin: 11/12/20 17:00 Dose: 8,000 units Documented by: [id number] Heparin Sodium/Sodium Chloride (Heparin In Nss Infusion 1000 Unit/500 Ml (2 U/Ml) Bag) Confirm Administered Dose 3,000 units IV .STK-MED ONE Stop: 11/10/20 10:58 Last Admin: 11/10/20 11:09 Dose: 3,000 units Documented by: [id number] Heparin Sodium/Sodium Chloride (Heparin In Nss Infusion 1000 Unit/500 Ml (2 U/Ml) Bag) Confirm Administered Dose 3,000 units IV .STK-MED ONE Stop: 11/12/20 14:26 Last Admin: 11/12/20 17:01 Dose: 3,000 units Documented by: [id number] Heparin Sodium/Dextrose (Heparin Sodium/Dextrose) 25,000 units in 500 mls @ 13 mls/hr IV .Q24H JASMEET; Protocol Stop: 12/08/20 09:44 Last Titration: 11/09/20 17:03 Dose: 0 units/hr, 0 mls/hr Documented by: [id number] Cosigned by: [id number] Titration: 11/09/20 06:54 Dose: 650 units/hr, 13 mls/hr Documented by: [id number] Cosigned by: [id number] Titration: 11/09/20 01:46 Dose: 700 units/hr, 14 mls/hr Documented by: [id number] Cosigned by: [id number] Titration: 11/09/20 00:51 Dose: 0 units/hr, 0 mls/hr Documented by: [id number] Cosigned by: [id number] Titration: 11/08/20 18:58 Dose: 850 units/hr, 17 mls/hr Documented by: [id number] Cosigned by: [id number] Admin: 11/08/20 10:26 Dose: 1,150 units/hr, 23 mls/hr Documented by: [id number] Cosigned by: [id number] Magnesium Sulfate/Dextrose (Magnesium Sulfate / D5w) 1 gm in 100 mls @ 50 mls/hr IV Q2H JAS[facility] Stop: 11/09/20 11:19 Last Infusion: 11/09/20 12:22 Dose: 0 mls/hr Documented by: [id number] Admin: 11/09/20 10:22 Dose: 50 mls/hr Documented by: [id number] Infusion: 11/09/20 10:22 Dose: 50 mls/hr Documented by: [id number] Admin: 11/09/20 08:23 Dose: 50 mls/hr Documented by: [id number] Sodium Chloride (Nss 1000ml) 1,000 mls @ 1 mls/hr IV .Q24H JAS[facility]ET Stop: 12/09/20 09:59 Last Admin: 11/09/20 11:59 Dose: Not Given Documented by: [id number] Sodium Chloride (Nss 1000ml) 1,000 mls @ 100 mls/hr IV .Q10H [facility]AS[facility]ET Stop: 12/09/20 23:58 Last Admin: 11/11/20 10:53 Dose: Not Given Documented by: [id number] Admin: 11/11/20 10:52 Dose: Not Given Documented by: [id number] Infusion: 11/10/20 23:41 Dose: 0 mls/hr Documented by: [id number] Admin: 11/10/20 10:06 Dose: 100 mls/hr Documented by: [id number] Infusion: 11/10/20 10:05 Dose: 0 mls/hr Documented by: [id number] Admin: 11/09/20 23:39 Dose: 100 mls/hr Documented by: [id number] Heparin Sodium/Dextrose (Heparin Sodium/Dextrose) 25,000 units in 500 mls @ 0 mls/hr IV .Q0M JASMEET; Protocol Stop: 12/08/20 09:44 Last Titration: 11/10/20 13:21 Dose: 0 units/hr, 0 mls/hr Documented by: [id number] Cosigned by: [id number] Titration: 11/10/20 09:35 Dose: 0 units/hr, 0 mls/hr Documented by: [id number] Cosigned by: [id number] Titration: 11/10/20 06:47 Dose: 650 units/hr, 13 mls/hr Documented by: [id number] Cosigned by: [id number] Titration: 11/09/20 18:49 Dose: 650 units/hr, 13 mls/hr Documented by: [id number] Cosigned by: [id number] Admin: 11/09/20 17:15 Dose: 650 units/hr, 13 mls/hr Documented by: [id number] Cosigned by: [id number] Famotidine (Pepcid 20mg Iv Push) 20 mg in 5 mls @ 2.5 mls/min IV TODAY@1045 ONE Stop: 11/10/20 10:46 Last Admin: 11/10/20 11:08 Dose: 2.5 mls/min Documented by: [id number] Furosemide 40 mg/ Syringe 4 mls @ 4 mls/min IV ONE ONE Stop: 11/11/20 12:01 Last Admin: 11/11/20 11:53 Dose: Not Given Documented by: [id number] Sodium Chloride (Nss 1000ml) 1,000 mls @ 100 mls/hr IV .Q10H JASMEET Stop: 12/12/20 09:59 Last Infusion: 11/12/20 17:32 Dose: 0 mls/hr Documented by: [id number] Admin: 11/12/20 12:43 Dose: 100 mls/hr Documented by: [id number] Sodium Chloride (Nss 1000ml) 1,000 mls @ 80 mls/hr IV .[id number] [facility] Stop: 12/12/20 10:29 Last Admin: 11/12/20 17:31 Dose: Not Given Documented by: [id number] Famotidine (Pepcid 20mg Iv Push) 20 mg in 5 mls @ 2.5 mls/min IV 1300 ONE Stop: 11/12/20 13:01 Last Admin: 11/12/20 16:59 Dose: 2.5 mls/min Documented by: [id number] Insulin Human Regular 10 units (/ Syringe) 10 mls @ 30 mls/min IV ONE ONE Stop: 11/13/20 12:01 Last Admin: 11/13/20 13:12 Dose: 30 mls/min Documented by: [id number] Cosigned by: [id number] Insulin Aspart (Insulin Aspart 100 Units/Ml 3 Ml Pen) 0 units SC ACHS [facility]; Protocol Stop: 12/08/20 11:29 Last Admin: 11/13/20 12:14 Dose: 22 units Documented by: [id number] Cosigned by: [id number] Admin: 11/13/20 08:21 Dose: 7 units Documented by: [id number] Cosigned by: [id number] Admin: 11/12/20 21:57 Dose: 3 units Documented by: [id number] Cosigned by: [id number] Admin: 11/12/20 17:58 Dose: Not Given Documented by: [id number] Admin: 11/12/20 12:39 Dose: 2 units Documented by: [id number] Cosigned by: [id number] Admin: 11/12/20 08:24 Dose: 2 units Documented by: [id number] Cosigned by: [id number] Admin: 11/11/20 21:15 Dose: 300 units Documented by: [id number] Cosigned by: [id number] Admin: 11/11/20 16:45 Dose: 4 units Documented by: [id number] Cosigned by: [id number] Admin: 11/11/20 12:00 Dose: 3 units Documented by: [id number] Cosigned by: [id number] Admin: 11/11/20 08:27 Dose: 9 units Documented by: [id number] Cosigned by: [id number] Admin: 11/10/20 21:05 Dose: 3 units Documented by: [id number] Cosigned by: [id number] Admin: 11/10/20 17:02 Dose: 10 units Documented by: [id number] Cosigned by: [id number] Admin: 11/10/20 14:04 Dose: Not Given Documented by: [id number] Admin: 11/10/20 08:36 Dose: Not Given Documented by: [id number] Cosigned by: [id number] Admin: 11/09/20 21:04 Dose: Not Given Documented by: [id number] Admin: 11/09/20 17:04 Dose: 7 units Documented by: [id number] Cosigned by: [id number] Admin: 11/09/20 12:37 Dose: 7 units Documented by: [id number] Cosigned by: [id number] Admin: 11/09/20 08:59 Dose: Not Given Documented by: [id number] Cosigned by: [id number] Admin: 11/08/20 20:36 Dose: Not Given Documented by: [id number] Admin: 11/08/20 16:49 Dose: Not Given Documented by: [id number] Cosigned by: [id number] Admin: 11/08/20 12:33 Dose: 7 units Documented by: [id number] Cosigned by: [id number] Insulin Glargine (Insulin Glargine Solostar 100 Units/Ml 3 Ml Pen) 15 units SC BID JASMEET Stop: 12/08/20 10:18 Last Admin: 11/13/20 08:48 Dose: 15 units Documented by: [id number] Cosigned by: [id number] Admin: 11/12/20 21:57 Dose: 15 units Documented by: [id number] Cosigned by: [id number] Admin: 11/12/20 08:26 Dose: 15 units Documented by: [id number] Cosigned by: [id number] Admin: 11/11/20 21:15 Dose: 15 units Documented by: [id number] Cosigned by: [id number] Admin: 11/11/20 08:35 Dose: 15 units Documented by: [id number] Cosigned by: [id number] Admin: 11/10/20 21:05 Dose: 15 units Documented by: [id number] Cosigned by: [id number] Admin: 11/10/20 13:29 Dose: 15 units Documented by: [id number] Cosigned by: [id number] Admin: 11/09/20 21:05 Dose: 15 units Documented by: [id number] Cosigned by: [id number] Admin: 11/09/20 08:58 Dose: 15 units Documented by: [id number] Cosigned by: [id number] Admin: 11/08/20 20:37 Dose: 15 units Documented by: [id number] Cosigned by: [id number] Admin: 11/08/20 12:32 Dose: 15 units Documented by: [id number] Cosigned by: [id number] Insulin Glargine (Insulin Glargine Solostar 100 Units/Ml 3 Ml Pen) 25 units SC ONE ONE Stop: 11/13/20 12:01 Last Admin: 11/13/20 12:15 Dose: 25 units Documented by: [id number] Cosigned by: [id number] Isosorbide Mononitrate (Isosorbide [place] Extended Rel 60 Mg Tabcr) 60 mg PO QAM [facility] Stop: 12/09/20 08:59 Last Admin: 11/11/20 08:25 Dose: 60 mg Documented by: [id number] Admin: 11/10/20 07:35 Dose: 60 mg Documented by: [id number] Admin: 11/09/20 08:25 Dose: 60 mg Documented by: [id number] Isosorbide Mononitrate (Isosorbide [place] Extended Rel 30 Mg Tabcr) 30 mg PO QAM JASMEET Stop: 12/13/20 10:29 Last Admin: 11/13/20 13:10 Dose: 30 mg Documented by: [id number] Labetalol HCl (Labetalol Hcl Iv 5 Mg/Ml 20ml) 10 mg IV NOW STA Stop: 11/08/20 07:01 Last Admin: 11/08/20 07:36 Dose: 10 mg Documented by: [id number] Cosigned by: [id number] Labetalol HCl (Labetalol Hcl Iv 5 Mg/Ml 20ml) 10 mg IV NOW STA Stop: 11/08/20 10:52 Last Admin: 11/08/20 11:18 Dose: Not Given Documented by: [id number] Labetalol HCl (Labetalol Hcl Iv 5 Mg/Ml 20ml) 10 mg IV NOW STA Stop: 11/11/20 10:23 Last Admin: 11/11/20 10:28 Dose: 10 mg Documented by: [id number] Cosigned by: [id number] Levothyroxine Sodium (Levothyroxine Sodium 125 Mcg Tablet) 125 mcg PO DAILYBB [facility] Stop: 12/09/20 06:29 Last Admin: 11/13/20 06:50 Dose: 125 mcg Documented by: [id number] Admin: 11/12/20 04:45 Dose: 125 mcg Documented by: [id number] Admin: 11/11/20 06:20 Dose: 125 mcg Documented by: [id number] Admin: 11/10/20 03:44 Dose: 125 mcg Documented by: [id number] Admin: 11/09/20 06:22 Dose: 125 mcg Documented by: [id number] Lisinopril (Lisinopril 40 Mg Tab) 40 mg PO HS [facility] Stop: 12/08/20 20:59 Last Admin: 11/12/20 21:57 Dose: 40 mg Documented by: [id number] Admin: 11/11/20 21:14 Dose: 40 mg Documented by: [id number] Admin: 11/10/20 20:01 Dose: 40 mg Documented by: [id number] Admin: 11/09/20 21:09 Dose: 40 mg Documented by: [id number] Admin: 11/08/20 20:28 Dose: 40 mg Documented by: [id number] Methylprednisolone (Methylprednisolone 125 Mg/2 Ml Vial) Confirm Administered Dose 125 mg .ROUTE .STK-MED ONE Stop: 11/10/20 10:52 Last Admin: 11/10/20 11:08 Dose: 125 mg Documented by: [id number] Methylprednisolone (Methylprednisolone 125 Mg/2 Ml Vial) Confirm Administered Dose 125 mg .ROUTE .STK-MED ONE Stop: 11/12/20 14:28 Last Admin: 11/12/20 17:02 Dose: 125 mg Documented by: [id number] Metoprolol Tartrate (Metoprolol Tartrate 100 Mg Tab) 100 mg PO BID [facility] Stop: 12/08/20 20:59 Last Admin: 11/13/20 08:49 Dose: 100 mg Documented by: [id number] Admin: 11/12/20 21:56 Dose: 100 mg Documented by: [id number] Admin: 11/12/20 08:25 Dose: 100 mg Documented by: [id number] Admin: 11/11/20 21:14 Dose: 100 mg Documented by: [id number] Admin: 11/11/20 08:25 Dose: 100 mg Documented by: [id number] Admin: 11/10/20 20:01 Dose: 100 mg Documented by: [id number] Admin: 11/10/20 07:36 Dose: 100 mg Documented by: [id number] Admin: 11/09/20 21:09 Dose: 100 mg Documented by: [id number] Admin: 11/09/20 08:25 Dose: 100 mg Documented by: [id number] Admin: 11/08/20 20:28 Dose: 100 mg Documented by: [id number] Metoprolol Tartrate (Metoprolol Tartrate 1 Mg/Ml Vial) 2.5 mg IV NOW STA Stop: 11/09/20 06:34 Last Admin: 11/09/20 06:43 Dose: 2.5 mg Documented by: [id number] Midazolam HCl (Midazolam Hcl 1 Mg/Ml 2ml Vial) Confirm Administered Dose 2 mg .ROUTE .STK-MED ONE Stop: 11/10/20 10:53 Last Increment: 11/10/20 11:47 Dose: 1 mg Documented by: [id number] Midazolam HCl (Midazolam Hcl 1 Mg/Ml 2ml Vial) Confirm Administered Dose 2 mg .ROUTE .STK-MED ONE Stop: 11/12/20 14:25 Last Admin: 11/12/20 17:00 Dose: 2 mg Documented by: [id number] Montelukast Sodium (Montelukast Sodium 10 Mg Tablet) 10 mg PO DAILY [facility] Stop: 12/09/20 08:59 Last Admin: 11/13/20 08:49 Dose: 10 mg Documented by: [id number] Admin: 11/12/20 08:25 Dose: 10 mg Documented by: [id number] Admin: 11/11/20 08:25 Dose: 10 mg Documented by: [id number] Admin: 11/10/20 07:36 Dose: 10 mg Documented by: [id number] Admin: 11/09/20 08:25 Dose: 10 mg Documented by: [id number] Morphine Sulfate (Morphine Sulfate 2 Mg/Ml Carp) 2 mg IV Q1H PRN PRN Reason: chest pain Stop: 11/22/20 10:51 Last Admin: 11/11/20 11:28 Dose: 2 mg Documented by: [id number] Admin: 11/11/20 10:08 Dose: 2 mg Documented by: [id number] Admin: 11/10/20 00:27 Dose: 2 mg Documented by: [id number] Admin: 11/09/20 14:25 Dose: 2 mg Documented by: [id number] Admin: 11/08/20 20:27 Dose: 2 mg Documented by: [id number] Admin: 11/08/20 14:39 Dose: 2 mg Documented by: [id number] Multivitamins (Multivitamin Tab) 1 tab PO QAM [facility] Stop: 12/09/20 08:59 Last Admin: 11/13/20 08:49 Dose: 1 tab Documented by: [id number] Admin: 11/12/20 08:25 Dose: 1 tab Documented by: [id number] Admin: 11/11/20 08:25 Dose: 1 tab Documented by: [id number] Admin: 11/10/20 07:34 Dose: 1 tab Documented by: [id number] Admin: 11/09/20 08:25 Dose: 1 tab Documented by: [id number] Nicardipine HCl (Nicardipine Hcl Inj 2.5 Mg/Ml 10 Ml Amp) Confirm Administered Dose 25 mg .ROUTE .STK-MED ONE Stop: 11/10/20 11:29 Last Admin: 11/10/20 11:48 Dose: 25 mg Documented by: [id number] Nicardipine HCl (Nicardipine Hcl Inj 2.5 Mg/Ml 10 Ml Amp) Confirm Administered Dose 25 mg .ROUTE .STK-MED ONE Stop: 11/12/20 14:25 Last Admin: 11/12/20 17:00 Dose: 25 mg Documented by: [id number] Nitroglycerin (Nitroglycerin Sl 0.4 Mg/Tab Tab) 0.4 mg SL NOW STA Stop: 11/08/20 07:09 Last Admin: 11/08/20 07:36 Dose: 0.4 mg Documented by: [id number] Nitroglycerin (Nitroglycerin 2% Ointment 30gm Tube) 1 inch EXT NOW STA Stop: 11/08/20 08:49 Last Admin: 11/08/20 09:30 Dose: 1 inch Documented by: [id number] Nitroglycerin (Nitroglycerin 2% Ointment 30gm Tube) 1 inch EXT Q6H [facility] Stop: 12/08/20 15:59 Last Admin: 11/10/20 17:00 Dose: Not Given Documented by: [id number] Admin: 11/10/20 11:16 Dose: Not Given Documented by: [id number] Admin: 11/10/20 03:44 Dose: 1 inch Documented by: [id number] Admin: 11/09/20 21:17 Dose: 1 inch Documented by: [id number] Admin: 11/09/20 17:03 Dose: 1 inch Documented by: [id number] Admin: 11/09/20 11:10 Dose: 1 inch Documented by: [id number] Admin: 11/09/20 04:38 Dose: 1 inch Documented by: [id number] Admin: 11/08/20 22:24 Dose: 1 inch Documented by: [id number] Admin: 11/08/20 16:51 Dose: 1 inch Documented by: [id number] Nitroglycerin (Nitroglycerin 2% Ointment 30gm Tube) Confirm Administered Dose 18 inch .ROUTE .STK-MED ONE Stop: 11/11/20 10:43 Last Admin: 11/11/20 10:43 Dose: 1 inch Documented by: [id number] Nitroglycerin (Nitroglycerin 2% Ointment 30gm Tube) 1 inch EXT Q6 [facility] Stop: 12/11/20 10:59 Last Admin: 11/11/20 10:52 Dose: Not Given Documented by: [id number] Nitroglycerin (Nitroglycerin 2% Ointment 30gm Tube) 1 inch EXT Q6H [facility] Stop: 12/11/20 11:44 Last Admin: 11/13/20 06:49 Dose: 1 inch Documented by: [id number] Admin: 11/13/20 01:00 Dose: 1 inch Documented by: [id number] Admin: 11/12/20 18:07 Dose: 1 inch Documented by: [id number] Admin: 11/12/20 13:18 Dose: 1 inch Documented by: [id number] Admin: 11/12/20 04:45 Dose: 1 inch Documented by: [id number] Admin: 11/11/20 23:21 Dose: 1 inch Documented by: [id number] Admin: 11/11/20 16:45 Dose: 1 inch Documented by: [id number] Admin: 11/11/20 12:00 Dose: Not Given Documented by: [id number] Nitroglycerin/Dextrose (Nitroglycerin/D5w 100mcg/Ml 20ml Syr) Confirm Administered Dose 2,000 mcg .ROUTE .STK-MED ONE Stop: 11/10/20 10:58 Last Admin: 11/10/20 11:48 Dose: 2,000 mcg Documented by: [id number] Nitroglycerin/Dextrose (Nitroglycerin/D5w 100mcg/Ml 20ml Syr) Confirm Administered Dose 2,000 mcg .ROUTE .STK-MED ONE Stop: 11/10/20 11:29 Last Admin: 11/10/20 11:48 Dose: Not Given Documented by: [id number] Nitroglycerin/Dextrose (Nitroglycerin/D5w 100mcg/Ml 20ml Syr) Confirm Administered Dose 2,000 mcg .ROUTE .STK-MED ONE Stop: 11/12/20 14:26 Last Admin: 11/12/20 17:01 Dose: 2,000 mcg Documented by: [id number] Pantoprazole Sodium (Pantoprazole 40 Mg Tab) 40 mg PO BID [facility] Stop: 12/11/20 11:44 Last Admin: 11/13/20 08:49 Dose: 40 mg Documented by: [id number] Admin: 11/12/20 21:56 Dose: 40 mg Documented by: [id number] Admin: 11/12/20 08:26 Dose: 40 mg Documented by: [id number] Admin: 11/11/20 21:13 Dose: 40 mg Documented by: [id number] Admin: 11/11/20 16:43 Dose: 40 mg Documented by: [id number] Rosuvastatin Calcium (Rosuvastatin Calcium 20 Mg Tab) 40 mg PO HS [facility] Stop: 12/08/20 20:59 Last Admin: 11/12/20 21:57 Dose: 40 mg Documented by: [id number] Admin: 11/11/20 21:13 Dose: 40 mg Documented by: [id number] Admin: 11/10/20 20:03 Dose: 40 mg Documented by: [id number] Admin: 11/09/20 21:09 Dose: 40 mg Documented by: [id number] Admin: 11/08/20 20:32 Dose: 40 mg Documented by: [id number] Vitamin D (Cholecalciferol 1,000 Units 25 Mcg Tab) 2,000 units PO QAM [facility] Stop: 12/09/20 08:59 Last Admin: 11/13/20 08:50 Dose: 2,000 units Documented by: [id number] Admin: 11/12/20 08:26 Dose: 2,000 units Documented by: [id number] Admin: 11/11/20 08:25 Dose: 2,000 units Documented by: [id number] Admin: 11/10/20 07:36 Dose: 2,000 units Documented by: [id number] Admin: 11/09/20 08:25 Dose: 2,000 units Documented by: [id number] Warfarin Sodium (Warfarin Sod 5 Mg Tab) 5 mg PO ONE ONE Stop: 11/10/20 20:01 Last Admin: 11/10/20 20:53 Dose: 5 mg Documented by: [id number] Warfarin Sodium (Warfarin Sod 5 Mg Tab) 5 mg PO DAILY@1600 [facility] Stop: 12/11/20 15:59 Last Admin: 11/11/20 16:43 Dose: 5 mg Documented by: [id number] Critical Care Time Critical Care Time: Yes I have personally spent 35 minutes of critical care time in the direct management of this patient. This was a life/limb threatening event. This 35 minutes is in excess of all separately billable procedures. Medical Decision Making Differential Diagnosis Cardiac ischemia, aortic dissection, pulmonary embolism, pneumothorax, pneumonia, pericarditis, myocarditis, esophageal rupture, GERD, cholecystitis, pancreatitis, musculoskeletal, as well as other pathologies. Medical Records Attestation: I reviewed the patient's medical records. Home Medications Current Medication List: was personally reviewed by me Laboratory Data Attestation: I reviewed the patient's lab results. Result diagrams: 11/13/20 06:18 11/13/20 06:18 Lab Results 11/08/20 11/08/20 11/08/20 Range/Units 06:00 06:00 06:05 WBC 7.18 (4.8-10.8) K/uL RBC 4.36 (4.2-5.4) M/uL Hgb 13.9 (12.0-16.0) g/dL Hct 42.6 (37-47) % MCV 97.7 (80-100) fL MCH 31.9 (25-34) pg MCHC 32.6 (32-36) g/dL RDW Std Deviation 47.1 H (36.4-46.3) fL RDW Coeff of Ree 13.2 (11.5-14.5) % Plt Count 227 (130-400) K/uL MPV 11.7 H (7.4-10.4) fL Immature Gran % (Auto) 0.1 % Neut % (Auto) 46.9 % Lymph % (Auto) 39.4 % [place] % (Auto) 10.0 % Eos % (Auto) 3.3 % Baso % (Auto) 0.3 % Neut # (Auto) 3.36 (1.4-6.5) K/uL Lymph # (Auto) 2.83 (1.2-3.4) K/uL [place] # (Auto) 0.72 H (0.11-0.59) K/uL Eos # (Auto) 0.24 (0-0.5) K/uL Baso # (Auto) 0.02 (0-0.2) K/uL Immature Gran # (Auto) 0.01 (0.00-0.02) K/uL PT 16.8 H (9.0-12.0) Seconds INR 1.7 H (0.9-1.1) APTT 35.9 H (21.0-31.0) Seconds PTT Ratio 1.4 Sodium 141 (136-145) mmol/L Potassium 3.9 (3.5-5.1) mmol/L Chloride 106 (98-107) mmol/L Carbon Dioxide 29 (21-32) mmol/L Anion Gap 6.0 (3-11) BUN 35 H (7-18) mg/dl Creatinine 1.33 H (0.6-1.2) mg/dl Est Cr Clr Drug Dosing 38.9 ml/min Est GFR ( Amer) 46.2 ml/min Est GFR (Non-Af Amer) 39.8 ml/min BUN/Creatinine Ratio 26.0 H (10-20) Glucose 191 H (70-99) mg/dl Calcium 9.2 (8.5-10.1) mg/dl Magnesium 1.9 (1.8-2.4) mg/dl Total Bilirubin 0.7 (0.2-1) mg/dl AST 45 H (15-37) U/L ALT 35 (12-78) U/L Alkaline Phosphatase 73 (45-117) U/L Troponin I 0.137 H* (0-0.045) ng/ml NT-Pro-B Natriuret Pep 869 (0-900) pg/ml Total Protein 7.3 (6.4-8.2) gm/dl Albumin 3.3 L (3.4-5.0) gm/dl Globulin 4.0 (2.5-4.0) gm/dl Albumin/Globulin Ratio 0.8 L (0.9-2) Lipase 183 (73-393) U/L COVID-19 Eval Order SARS-CoV-2 (PCR) (Negative) 11/08/20 11/08/20 Range/Units 07:40 07:40 WBC (4.8-10.8) K/uL RBC (4.2-5.4) M/uL Hgb (12.0-16.0) g/dL Hct (37-47) % MCV (80-100) fL MCH (25-34) pg MCHC (32-36) g/dL RDW Std Deviation (36.4-46.3) fL RDW Coeff of Ree (11.5-14.5) % Plt Count (130-400) K/uL MPV (7.4-10.4) fL Immature Gran % (Auto) % Neut % (Auto) % Lymph % (Auto) % [place] % (Auto) % Eos % (Auto) % Baso % (Auto) % Neut # (Auto) (1.4-6.5) K/uL Lymph # (Auto) (1.2-3.4) K/uL [place] # (Auto) (0.11-0.59) K/uL Eos # (Auto) (0-0.5) K/uL Baso # (Auto) (0-0.2) K/uL Immature Gran # (Auto) (0.00-0.02) K/uL PT (9.0-12.0) Seconds INR (0.9-1.1) APTT (21.0-31.0) Seconds PTT Ratio Sodium (136-145) mmol/L Potassium (3.5-5.1) mmol/L Chloride (98-107) mmol/L Carbon Dioxide (21-32) mmol/L Anion Gap (3-11) BUN (7-18) mg/dl Creatinine (0.6-1.2) mg/dl Est Cr Clr Drug Dosing ml/min Est GFR ( Amer) ml/min Est GFR (Non-Af Amer) ml/min BUN/Creatinine Ratio (10-20) Glucose (70-99) mg/dl Calcium (8.5-10.1) mg/dl Magnesium (1.8-2.4) mg/dl Total Bilirubin (0.2-1) mg/dl AST (15-37) U/L ALT (12-78) U/L Alkaline Phosphatase (45-117) U/L Troponin I (0-0.045) ng/ml NT-Pro-B Natriuret Pep (0-900) pg/ml Total Protein (6.4-8.2) gm/dl Albumin (3.4-5.0) gm/dl Globulin (2.5-4.0) gm/dl Albumin/Globulin Ratio (0.9-2) Lipase (73-393) U/L COVID-19 Eval Order Covid19 at [facility] [place] SARS-CoV-2 (PCR) NEGATIVE (Negative) Imaging Data Radiologist's Impression: Chest X-Ray 11/08/20 06:23 XR chest 1V portable CLINICAL HISTORY: chest pain COMPARISON STUDY: Chest CT February 07, 2018. Chest radiograph April 18, 2018. FINDINGS: There are median sternotomy wires. Lung volumes are normal. There is no pneumothorax or pleural effusion. No consolidation is identified. There is mild interstitial thickening. Mild cardiomegaly is unchanged. IMPRESSION: Cardiomegaly. Mild interstitial thickening which favors pulmonary edema. An infectious process could appear similar although is considered less likely. ACT 112: Negative or not required by law. Electronically signed by: Chava Del Valle M.D. 11/08/2020 6:50 AM ECG Data Attestation: I personally reviewed and interpreted this ECG as follows: Indication: + tachycardia Rate (beats per minute): 103 Rhythm: + sinus tachycardia ECG Intervals/blocks: + Incomplete right bundle branch block and + Normal QT-c ECG [place]: + Left axis deviation ECG ST segments: + Normal ST segments ECG Findings: no PACs or no PVCs Blood Pressure Blood Pressure Findings: Elevated blood pressure Blood Pressure Disposition: further management by hospitalist [facility] Narrative This patient was evaluated and appeared to be in no significant distress. I did have my evaluation the patient had minimal if any chest discomfort. She was noted to be markedly hypertensive. The patient was given nitroglycerin sublingual, 50 mcg of IV fentanyl, 40 mg of IV Lasix and 10 mg of IV labetalol. EKG reveals a sinus tachycardia without evidence of acute ischemia. Chest x-ray reveals evidence of pulmonary vascular congestion. Laboratory work reveals an elevated troponin of 0.137. I suspect the patient is having some hypertensive urgency/non-STEMI perhaps related to recent high salt ingestion with history of CAD and CHF. She is comfortable at this time and blood pressures under better control. [facility] for [facility] management. Impression & Plan Hypertensive urgency, CHF (congestive heart failure), Elevated troponin Discharge Plan Visit Data Chief Complaint: Chest Pain Stated Complaint: CHEST PAIN/NAUSEA ED Provider: Uzma Murrell Discharge Problem: Hypertensive urgency, CHF (congestive heart failure), Elevated troponin Patient Disposition: Admitted As Inpatient Discharge Instructions Interventions: ED Discharge Assessment Last Done: 11/08/20 09:56
[2020-11-08] MEDS: MoRPHine SULFATE 2 MG/ML CARP IV PRN ×2 (14:39→20:27)
[2020-11-08] MEDS: NITROGLYCERIN 2% OINTMENT 30GM TUBE EXT SCH ×2 (16:51→22:24)
[2020-11-08 17:23] LABS: Partial Thromboplastin Ratio > 5.3
[2020-11-08 17:29] LABS: Partial Thromboplastin Time > 139.0 Seconds (21.0-31.0)
[2020-11-08] MEDS: lisinopril 40 MG TAB PO SCH (20:28)
[2020-11-08] MEDS: METOPROLOL TARTRATE 100 MG TAB PO SCH (20:28)
[2020-11-08] MEDS: ROSUVASTATIN CALCIUM 20 MG TAB PO SCH (20:32)
[2020-11-09 00:48] LABS: Partial Thromboplastin Ratio 3.7
[2020-11-09 00:50] LABS: Partial Thromboplastin Time 97.4 Seconds (21.0-31.0)
[2020-11-09] MEDS: NITROGLYCERIN 2% OINTMENT 30GM TUBE EXT SCH ×4 (04:38→21:17)
[2020-11-09] MEDS ORDERED: diphenhydrAMINE Capsule 25 MG CAP PO ONE (06:18)
[2020-11-09] MEDS: LEVOTHYROXINE SODIUM 125 MCG TABLET PO SCH (06:22)
[2020-11-09 06:31] LABS: Hematocrit (blood only) 40.2 % (37-47); Hemoglobin 13.2 g/dL (12.0-16.0); Mean Corpuscular Hemoglobin 31.2 pg (25-34); Mean Corpuscular Hgb Conc 32.8 g/dL (32-36); Mean Platelet Volume 11.3 fL (7.4-10.4); Platelet Count 180 K/uL (130-400); RDW Coefficient of Variation 13.2 % (11.5-14.5); RDW Standard Deviation 45.6 fL (36.4-46.3); Red Blood Count 4.23 M/uL (4.2-5.4); White Blood Count 7.31 K/uL (4.8-10.8)
[2020-11-09] MEDS ORDERED: METOPROLOL TARTRATE 1 MG/ML VIAL IV STA (06:33)
[2020-11-09 06:50] LABS: Partial Thromboplastin Ratio 2.5
[2020-11-09 06:53] LABS: Partial Thromboplastin Time 66.6 Seconds (21.0-31.0)
[2020-11-09 07:06] LABS: BUN Creatinine Ratio 32.7 (10-20); Calcium 8.7 mg/dl (8.5-10.1); Creatinine Clr Calc Pharmacy 51.5 ml/min; Est GFR (African American) 60.8 ml/min; Est GFR (Non-African American) 52.4 ml/min; Magnesium 1.7 mg/dl (1.8-2.4); Potassium 3.6 mmol/L (3.5-5.1)
[2020-11-09] MEDS: MAGNESIUM SULFATE / D5W 1 GM/100 ML BAG IV SCH ×2 (08:23→10:22)
[2020-11-09] MEDS: FENOFIBRATE NANOCRYSTALLIZED 48 MG TABLET PO SCH (08:24)
[2020-11-09] MEDS: ASPIRIN 81 MG ECTAB PO SCH (08:25)
[2020-11-09] MEDS: CHOLECALCIFEROL 1,000 UNITS 25 MCG TAB PO SCH (08:25)
[2020-11-09] MEDS: EZETIMIBE 10 MG TABLET PO SCH (08:25)
[2020-11-09] MEDS: METOPROLOL TARTRATE 100 MG TAB PO SCH ×2 (08:25→21:09)
[2020-11-09] MEDS: MULTIVITAMIN TAB PO SCH (08:25)
[2020-11-09] MEDS: ISOSORBIDE MONO EXTENDED REL 60 MG TABCR PO SCH (08:25)
[2020-11-09] MEDS: MONTELUKAST SODIUM 10 MG TABLET PO SCH (08:25)
[2020-11-09] MEDS: OMEGA-3 (PURIFIED FISH OIL) 1 GM CAP PO SCH (08:26)
[2020-11-09] MEDS: INSULIN GLARGINE SOLOSTAR 100 UNITS/ML 3 ML PEN SC SCH ×2 (08:58→21:05)
[2020-11-09] MEDS: INSULIN ASPART 100 UNITS/ML 3 ML PEN SC SCH ×4 (08:59→21:04)
--- NOTE | 2020-11-09 09:55 | Cardiology Progress Note ---
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 She is currently hemodynamically stable and pain-free. I would continue treatment of her hypertension. My exam does not suggest CHF today and I would hold off on the diuretics. I believe a cardiac catheterization is indicated. I think if the patient remains clinically stable this can be done electively tomorrow. I explained the risk, benefit and intent to the cardiac catheterization to the patient and she is willing to proceed. She has a remote history of a potential dye allergy which we will treat her for prior to the cardiac catheterization. I ordered an echocardiogram today. Her last echocardiogram at the office shows heavy mitral annular calcification and probably some mild mitral stenosis. Some mild LV dysfunction. Admission and Anticipated Discharge Date Admission Date: November 08, 2020 Subjective The patient is doing better this morning. No significant chest pain since yesterday. Review of Systems Review of Systems: Review of Systems: See HPI for pertinent positives. All other 10 point review of systems are negative. Physical Exam Physical Exam: General: no acute distress and stated age Head: normocephalic, no masses, lesions, tenderness or abnormalities Eyes: conjunctiva are pink and non-injected, sclera clear Neck: supple, no adenopathy, no bruits, normal jugular venous pulse, no hepatojugular reflux Chest: normal shape and normal respiratory effort Lungs: clear to auscultation and percussion Cardiac Exam: - regular rate & rhythm, no murmurs gallops or rubs - normal S1, normal S2 Pulses: 2(+) throughout Abdomen: abdomen soft, non-tender, no abnormal masses and no hepatosplenomegaly Musculoskeletal: no gait disturbance, no joint inflammation, no deforming arthritis Extremities: no edema and no cyanosis Neuro: grossly normal exam Results & Data ([facility]) Vital Signs (Past 12 Hours) Vital Signs Temp Pulse Pulse Resp BP BP Pulse Ox 11/09/20 08:00 72 11/09/20 07:25 36.6 C 79 18 129/66 97 11/09/20 06:43 80 147/69 H 11/09/20 04:00 36.7 C 73 20 181/85 H 98 11/09/20 00:00 74 11/08/20 23:35 36.5 C 68 18 164/81 H 99 Laboratory Results Laboratory Results - last 24 hr 11/08/20 11/08/20 11/08/20 11:03 13:14 13:14 WBC RBC Hgb Hct MCV MCH MCHC RDW Std Deviation RDW Coeff of Ree Plt Count MPV APTT PTT Ratio Sodium Potassium Chloride Carbon Dioxide Anion Gap BUN Creatinine Est Cr Clr Drug Dosing Est GFR ( Amer) Est GFR (Non-Af Amer) BUN/Creatinine Ratio Glucose POC Glucose 257 H Estimat Average Glucose 151 Hemoglobin A1c 6.9 H Calcium Magnesium Troponin I 4.110 H* NT-Pro-B Natriuret Pep Triglycerides Cholesterol LDL Cholesterol, Calc VLDL Cholesterol, Calc HDL Cholesterol Cholesterol/HDL Ratio 11/08/20 11/08/20 11/08/20 16:26 16:49 18:21 WBC RBC Hgb Hct MCV MCH MCHC RDW Std Deviation RDW Coeff of Ree Plt Count MPV APTT > 139.0 H* PTT Ratio > 5.3 Sodium Potassium Chloride Carbon Dioxide Anion Gap BUN Creatinine Est Cr Clr Drug Dosing Est GFR ( Amer) Est GFR (Non-Af Amer) BUN/Creatinine Ratio Glucose POC Glucose 144 H Estimat Average Glucose Hemoglobin A1c Calcium Magnesium Troponin I 7.360 H* NT-Pro-B Natriuret Pep Triglycerides Cholesterol LDL Cholesterol, Calc VLDL Cholesterol, Calc HDL Cholesterol Cholesterol/HDL Ratio 11/08/20 11/08/20 11/08/20 18:21 20:35 23:54 WBC RBC Hgb Hct MCV MCH MCHC RDW Std Deviation RDW Coeff of Ree Plt Count MPV APTT 78.0 H* PTT Ratio 3.0 Sodium Potassium Chloride Carbon Dioxide Anion Gap BUN Creatinine Est Cr Clr Drug Dosing Est GFR ( Amer) Est GFR (Non-Af Amer) BUN/Creatinine Ratio Glucose POC Glucose 132 H 150 H Estimat Average Glucose Hemoglobin A1c Calcium Magnesium Troponin I NT-Pro-B Natriuret Pep Triglycerides Cholesterol LDL Cholesterol, Calc VLDL Cholesterol, Calc HDL Cholesterol Cholesterol/HDL Ratio 11/09/20 11/09/20 11/09/20 00:17 06:00 06:00 WBC 7.31 RBC 4.23 Hgb 13.2 Hct 40.2 MCV 95.0 MCH 31.2 MCHC 32.8 RDW Std Deviation 45.6 RDW Coeff of Ree 13.2 Plt Count 180 MPV 11.3 H APTT 97.4 H* PTT Ratio 3.7 Sodium 140 Potassium 3.6 Chloride 103 Carbon Dioxide 32 Anion Gap 5.0 BUN 35 H Creatinine 1.06 Est Cr Clr Drug Dosing 51.5 Est GFR ( Amer) 60.8 Est GFR (Non-Af Amer) 52.4 BUN/Creatinine Ratio 32.7 H Glucose 131 H POC Glucose Estimat Average Glucose Hemoglobin A1c Calcium 8.7 Magnesium 1.7 L Troponin I NT-Pro-B Natriuret Pep 3262 H Triglycerides 133 Cholesterol 98 LDL Cholesterol, Calc 29 VLDL Cholesterol, Calc 27 HDL Cholesterol 42 Cholesterol/HDL Ratio 2 11/09/20 11/09/20 11/09/20 06:00 06:25 07:25 WBC RBC Hgb Hct MCV MCH MCHC RDW Std Deviation RDW Coeff of Ree Plt Count MPV APTT 66.6 H* PTT Ratio 2.5 Sodium Potassium Chloride Carbon Dioxide Anion Gap BUN Creatinine Est Cr Clr Drug Dosing Est GFR ( Amer) Est GFR (Non-Af Amer) BUN/Creatinine Ratio Glucose POC Glucose 172 H Estimat Average Glucose Hemoglobin A1c Calcium Magnesium Troponin I Pending NT-Pro-B Natriuret Pep Triglycerides Cholesterol LDL Cholesterol, Calc VLDL Cholesterol, Calc HDL Cholesterol Cholesterol/HDL Ratio Medications Administered Current Inpatient Medications Acetaminophen (Acetaminophen 325 Mg Tab) 650 mg PO Q4H PRN PRN Reason: Pain or Fever Stop: 12/08/20 10:18 Aspirin (Aspirin 81 Mg Ectab) [facility] Stop: 12/09/20 08:59 Last Admin: 11/09/20 08:25 Dose: 81 mg Documented by: Dextrose (Dextrose 50% 50 Ml Syringe) 25 - 50 ml IV UD PRN; Protocol PRN Reason: Hypoglycemia Protocol Stop: 12/08/20 10:18 Ezetimibe (Ezetimibe 10 Mg Tablet) 10 mg PO DAILY [facility] Stop: 12/09/20 08:59 Last Admin: 11/09/20 08:25 Dose: 10 mg Documented by: Fenofibrate (Fenofibrate Nanocrystallized 48 Mg Tablet) 48 mg PO DAILY [facility] Stop: 12/09/20 08:59 Last Admin: 11/09/20 08:24 Dose: 48 mg Documented by: Fish Oil ([place]-3 (Purified Fish Oil) 1 Gm Cap) 4 gm PO QAM [facility] Stop: 12/09/20 08:59 Last Admin: 11/09/20 08:26 Dose: 4 gm Documented by: Glucagon (Glucagon For Inj 1 Mg Vial) 1 mg SQ UD PRN; Protocol PRN Reason: Hypoglycemia Protocol Stop: 12/08/20 10:18 Glucose (Glucose 10 Tabs/Tube) 4 - 8 tabs PO UD PRN; Protocol PRN Reason: Hypoglycemia Protocol Stop: 12/08/20 10:18 Glucose (Glucose 40% Gel 15 Gm Tube) 15 - 30 gm PO UD PRN; Protocol PRN Reason: Hypoglycemia Protocol Stop: 12/08/20 10:18 Heparin Sodium/Dextrose (Heparin Sodium/Dextrose) 25,000 units in 500 mls @ 13 mls/hr IV .Q24H JASMEET; Protocol Stop: 12/08/20 09:44 Last Titration: 11/09/20 06:54 Dose: 650 units/hr, 13 mls/hr Documented by: Magnesium Sulfate/Dextrose (Magnesium Sulfate / D5w) 1 gm in 100 mls @ 50 mls/hr IV Q2H [facility]AS[facility] Stop: 11/09/20 11:19 Last Admin: 11/09/20 08:23 Dose: 50 mls/hr Documented by: Sodium Chloride (Nss 1000ml) 1,000 mls @ 1 mls/hr IV .Q24H [facility] Stop: 12/09/20 09:59 Insulin Aspart (Insulin Aspart 100 Units/Ml 3 Ml Pen) 0 units SC ACHS [facility] Stop: 12/08/20 11:29 Last Admin: 11/09/20 08:59 Dose: Not Given Documented by: Insulin Glargine (Insulin Glargine Solostar 100 Units/Ml 3 Ml Pen) 15 units SC BID [facility] Stop: 12/08/20 10:18 Last Admin: 11/09/20 08:58 Dose: 15 units Documented by: Isosorbide Mononitrate (Isosorbide [place] Extended Rel 60 Mg Tabcr) 60 mg PO QAM [facility] Stop: 12/09/20 08:59 Last Admin: 11/09/20 08:25 Dose: 60 mg Documented by: Levothyroxine Sodium (Levothyroxine Sodium 125 Mcg Tablet) 125 mcg PO DAILYBB [facility] Stop: 12/09/20 06:29 Last Admin: 11/09/20 06:22 Dose: 125 mcg Documented by: Lisinopril (Lisinopril 40 Mg Tab) 40 mg PO HS [facility] Stop: 12/08/20 20:59 Last Admin: 11/08/20 20:28 Dose: 40 mg Documented by: Metoprolol Tartrate (Metoprolol Tartrate 100 Mg Tab) 100 mg PO BID [facility] Stop: 12/08/20 20:59 Last Admin: 11/09/20 08:25 Dose: 100 mg Documented by: Miscellaneous (Carbohydrates For Hypoglycemia ) 15 - 30 gm PO UD PRN PRN Reason: Hypoglycemia Protocol Stop: 12/08/20 10:18 Montelukast Sodium (Montelukast Sodium 10 Mg Tablet) 10 mg PO DAILY [facility] Stop: 12/09/20 08:59 Last Admin: 11/09/20 08:25 Dose: 10 mg Documented by: Morphine Sulfate (Morphine Sulfate 2 Mg/Ml [place]) 2 mg IV Q1H PRN PRN Reason: chest pain Stop: 11/22/20 10:51 Last Admin: 11/08/20 20:27 Dose: 2 mg Documented by: Multivitamins (Multivitamin Tab) 1 tab PO QAM [facility] Stop: 12/09/20 08:59 Last Admin: 11/09/20 08:25 Dose: 1 tab Documented by: Nitroglycerin (Nitroglycerin Sl 0.4 Mg/Tab Tab) 0.4 mg SL UD PRN PRN Reason: Chest Pain Stop: 12/08/20 10:18 Nitroglycerin (Nitroglycerin 2% Ointment 30gm Tube) 1 inch EXT Q6H [facility] Stop: 12/08/20 15:59 Last Admin: 11/09/20 04:38 Dose: 1 inch Documented by: Ondansetron HCl (Ondansetron Inj 2 Mg/Ml 2 Ml Vial) 4 mg IV Q6H PRN PRN Reason: Nausea Stop: 12/08/20 10:18 Polyethylene Glycol (Polyethylene (Miralax) 17 Gm Pack) 17 gm PO DAILY PRN PRN Reason: Constipation Stop: 12/08/20 10:18 Rosuvastatin Calcium (Rosuvastatin Calcium 20 Mg Tab) 40 mg PO [facility] Stop: 12/08/20 20:59 Last Admin: 11/08/20 20:32 Dose: 40 mg Documented by: Vitamin D (Cholecalciferol 1,000 Units 25 Mcg Tab) 2,000 units PO [facility] Stop: 12/09/20 08:59 Last Admin: 11/09/20 08:25 Dose: 2,000 units Documented by:
[2020-11-09] MEDS ORDERED: SODIUM CHLORIDE 0.9% 1000ML 1,000 ML IV SCH (10:00)
--- NOTE | 2020-11-09 11:14 | Hospitalist Progress Note ---
Date of Service November 09, 2020 Assessment & Plan (1) NSTEMI (non-ST elevated myocardial infarction): Plan: Concerning features of ACS including 2 weeks of unstable angina and ongoing chest pain despite nitro and blood pressure control. Continue aggressive blood pressure control and pain management attempts, additional morphine given this afternoon. EDMUND risk score is 6, therefore, warfarin has been held and she is on a heparin drip. INR in a.m. EKG daily. Troponin peaked at 7 yesterday with declined to 4 this morning. From a medication standpoint she is taking aspirin 81, lisinopril 40 daily, Lopressor 100 twice daily, rosuvastatin 40, ezetimibe 10, fenofibrate 54, and Imdur for 60mg day. Will cont home regimen. (2) Hypertensive crisis: Plan: Dietary indiscretions with noted [employer] prior to arrival. Initial blood pressure well over 200 now in the 120 systolic. (3) Acute diastolic heart failure: Plan: Pulmonary congestion seen on chest x-ray, pulmonary exam with crackles at bases bilaterally and 1+ peripheral edema bilaterally. She appears more compensated this morning. Holding off on diuretics per cardiology. Initial heart failure picture likely related to #2. Strict ins and O's, low-salt diet, daily standing weights. Cont nitro. (4) Type 2 diabetes mellitus, with long-term current use of insulin: Plan: Complications include retinopathy and nephropathy. She is monitored by endocrinology at [facility]. Recent A1c was 6.9. Overall longstanding good control. Continue basal bolus insulin while admitted. At goal (5) Morbid obesity: Plan: We discussed how morbid obesity and diabetes as just 2 examples increase her risk of complications of COVID-19. We discussed the importance of vaccination. It is overall important especially with a history of hepatic steatosis, to work to change lifestyle for goal of decreased adipose tissue and increased lean muscle mass generally. (6) Psoriasis: Plan: No medications at this time. (7) DVT prophylaxis: Plan: Heparin drip Full Code Dispo-to home when medically stable, PT/OT ordered, cardiac cath in a.m. Odalys Nair DO [facility] Hospitalist Admission and Anticipated Discharge Date Admission Date: November 08, 2020 Subjective 70-year-old female presented with hypertensive crisis and NSTEMI She denies any issues with breathing today but does report persistent intermittent chest pain especially with exertion. She does report pain with taking deep breaths Blood pressure better under control with a systolic of 120 on average. Troponin has elevated with a peak of 7.36 at 1800 yesterday coming down to 4.33 this morning. EKG with T wave inversions laterally. Elective catheterization planned for morning. Review of Systems Review of Systems: At least ten systems were reviewed and negative except as indicated in HPI above. Physical Exam Physical Exam: CONSTITUTIONAL: obese, vitals as above, generally well- appearing, no respiratory distress, oxygenating 95% on room air EYES: normal conjunctivae, no scleral icterus ENT: external ear and nose normal, oropharynx clear, MMM NECK: trachea midline RESPIRATORY: +min crackles at bases-improved, no rales or wheezes, normal respiratory effort CARDIOVASCULAR: regular rate and rhythm, S1 and 2 heard without murmurs, gallops or rubs, no JVD, no peripheral edema CHEST: inspection of chest was normal GASTROINTESTINAL: soft, nontender, nondistended, protuberant, no guarding MUSCULOSKELETAL: strength 5/5 throughout, ambulates independently, head is normocephalic and atraumatic SKIN: warm and dry, psoriasis plaque noted on right distal arm NEUROLOGIC: CN 2-12 grossly intact, no sensory deficit, normal cognition, normal speech, no tremor PSYCHIATRIC: alert cooperative and oriented to person, place and time. Results & Data Results & Data ([facility]) Vital Signs (Past 12 Hours) Vital Signs Temp Pulse Pulse Resp BP BP Pulse Ox 11/09/20 08:00 72 11/09/20 07:25 36.6 C 79 18 129/66 97 11/09/20 06:43 80 147/69 H 11/09/20 04:00 36.7 C 73 20 181/85 H 98 11/09/20 00:00 74 11/08/20 23:35 36.5 C 68 18 164/81 H 99 Laboratory Results Short CBC 11/09/20 Range/Units 06:00 WBC 7.31 (4.8-10.8) K/uL Hgb 13.2 (12.0-16.0) g/dL Hct 40.2 (37-47) % Plt Count 180 (130-400) K/uL BMP 11/09/20 06:00 Sodium 140 Potassium 3.6 Chloride 103 Carbon Dioxide 32 BUN 35 H Creatinine 1.06 Glucose 131 H Calcium 8.7 Cardiac Enzymes 11/08/20 11/08/20 11/09/20 Range/Units 13:14 18: 06:25 Troponin I 4.110 H* 7.360 H* 4.330 H* (0-0.045) ng/ml Medications Administered Current Inpatient Medications Acetaminophen (Acetaminophen 325 Mg Tab) 650 mg PO Q4H PRN PRN Reason: Pain or Fever Stop: 12/08/20 10:18 Aspirin (Aspirin 81 Mg Ectab) 81 mg PO QAM [facility] Stop: 12/09/20 08:59 Last Admin: 11/09/20 08:25 Dose: 81 mg Documented by: Dextrose (Dextrose 50% 50 Ml Syringe) 25 - 50 ml IV UD PRN; Protocol PRN Reason: Hypoglycemia Protocol Stop: 12/08/20 10:18 Ezetimibe (Ezetimibe 10 Mg Tablet) 10 mg PO DAILY [facility] Stop: 12/09/20 08:59 Last Admin: 11/09/20 08:25 Dose: 10 mg Documented by: Fenofibrate (Fenofibrate Nanocrystallized 48 Mg Tablet) 48 mg PO DAILY [facility] Stop: 12/09/20 08:59 Last Admin: 11/09/20 08:24 Dose: 48 mg Documented by: Fish Oil ([place]-3 (Purified Fish Oil) 1 Gm Cap) 4 gm PO QAM [facility] Stop: 12/09/20 08:59 Last Admin: 11/09/20 08:26 Dose: 4 gm Documented by: Glucagon (Glucagon For Inj 1 Mg Vial) 1 mg SQ UD PRN; Protocol PRN Reason: Hypoglycemia Protocol Stop: 12/08/20 10:18 Glucose (Glucose 10 Tabs/Tube) 4 - 8 tabs PO UD PRN; Protocol PRN Reason: Hypoglycemia Protocol Stop: 12/08/20 10:18 Glucose (Glucose 40% Gel 15 Gm Tube) 15 - 30 gm PO UD PRN; Protocol PRN Reason: Hypoglycemia Protocol Stop: 12/08/20 10:18 Heparin Sodium/Dextrose (Heparin Sodium/Dextrose) 25,000 units in 500 mls @ 13 mls/hr IV .Q24H [facility]; Protocol Stop: 12/08/20 09:44 Last Titration: 11/09/20 06:54 Dose: 650 units/hr, 13 mls/hr Documented by: Magnesium Sulfate/Dextrose (Magnesium Sulfate / D5w) 1 gm in 100 mls @ 50 mls/hr IV Q2H [facility] Stop: 11/09/20 11:19 Last Admin: 11/09/20 10:22 Dose: 50 mls/hr Documented by: Sodium Chloride (Nss 1000ml) 1,000 mls @ 1 mls/hr IV .Q24H [facility] Stop: 12/09/20 09:59 Insulin Aspart (Insulin Aspart 100 Units/Ml 3 Ml Pen) 0 units SC ACHS [facility] Stop: 12/08/20 11:29 Last Admin: 11/09/20 08:59 Dose: Not Given Documented by: Insulin Glargine (Insulin Glargine Solostar 100 Units/Ml 3 Ml Pen) 15 units SC BID [facility] Stop: 12/08/20 10:18 Last Admin: 11/09/20 08:58 Dose: 15 units Documented by: Isosorbide Mononitrate (Isosorbide [place] Extended Rel 60 Mg Tabcr) 60 mg PO QAM [facility] Stop: 12/09/20 08:59 Last Admin: 11/09/20 08:25 Dose: 60 mg Documented by: Levothyroxine Sodium (Levothyroxine Sodium 125 Mcg Tablet) 125 mcg PO DAILYBB [facility] Stop: 12/09/20 06:29 Last Admin: 11/09/20 06:22 Dose: 125 mcg Documented by: Lisinopril (Lisinopril 40 Mg Tab) 40 mg PO HS [facility] Stop: 12/08/20 20:59 Last Admin: 11/08/20 20:28 Dose: 40 mg Documented by: Metoprolol Tartrate (Metoprolol Tartrate 100 Mg Tab) 100 mg PO BID [facility] Stop: 12/08/20 20:59 Last Admin: 11/09/20 08:25 Dose: 100 mg Documented by: Miscellaneous (Carbohydrates For Hypoglycemia ) 15 - 30 gm PO UD PRN PRN Reason: Hypoglycemia Protocol Stop: 12/08/20 10:18 Montelukast Sodium (Montelukast Sodium 10 Mg Tablet) 10 mg PO DAILY [facility] Stop: 12/09/20 08:59 Last Admin: 11/09/20 08:25 Dose: 10 mg Documented by: Morphine Sulfate (Morphine Sulfate 2 Mg/Ml Carp) 2 mg IV Q1H PRN PRN Reason: chest pain Stop: 11/22/20 10:51 Last Admin: 11/08/20 20:27 Dose: 2 mg Documented by: Multivitamins (Multivitamin Tab) 1 tab PO QAM [facility] Stop: 12/09/20 08:59 Last Admin: 11/09/20 08:25 Dose: 1 tab Documented by: Nitroglycerin (Nitroglycerin Sl 0.4 Mg/Tab Tab) 0.4 mg SL UD PRN PRN Reason: Chest Pain Stop: 12/08/20 10:18 Nitroglycerin (Nitroglycerin 2% Ointment 30gm Tube) 1 inch EXT Q6H [facility] Stop: 12/08/20 15:59 Last Admin: 11/09/20 11:10 Dose: 1 inch Documented by: Ondansetron HCl (Ondansetron Inj 2 Mg/Ml 2 Ml Vial) 4 mg IV Q6H PRN PRN Reason: Nausea Stop: 12/08/20 10:18 Polyethylene Glycol (Polyethylene (Miralax) 17 Gm Pack) 17 gm PO DAILY PRN PRN Reason: Constipation Stop: 12/08/20 10:18 Rosuvastatin Calcium (Rosuvastatin Calcium 20 Mg Tab) 40 mg PO [facility] Stop: 12/08/20 20:59 Last Admin: 11/08/20 20:32 Dose: 40 mg Documented by: Vitamin D (Cholecalciferol 1,000 Units 25 Mcg Tab) 2,000 units PO QAM [facility] Stop: 12/09/20 08:59 Last Admin: 11/09/20 08:25 Dose: 2,000 units Documented by:
[2020-11-09] MEDS ORDERED: Nursing to Pharmacy Communication SCH (11:15)
[2020-11-09 13:20] LABS: Partial Thromboplastin Ratio 2.3
[2020-11-09 13:22] LABS: Partial Thromboplastin Time 59.9 Seconds (21.0-31.0)
[2020-11-09] MEDS: MoRPHine SULFATE 2 MG/ML CARP IV PRN (14:25)
[2020-11-09] MEDS ORDERED: HEPARIN SODIUM/DEXTROSE 25,000 UNITS/500 ML BAG IV SCH (17:15)
--- NOTE | 2020-11-09 20:06 | Electrocardiogram Report ---
Test Reason : Blood Pressure : / mmHG Vent. Rate : 103 BPM Atrial Rate : 103 BPM P-R Int : 152 ms QRS Dur : 106 ms QT Int : 376 ms P-R-T Axes : 076 -53 035 degrees QTc Int : 492 ms Sinus tachycardia Left axis deviation Incomplete right bundle branch block Abnormal ECG When compared with ECG of 27-SEP-2018 09:44, Sinus rhythm has replaced Atrial fibrillation Criteria for Inferior infarct are no longer Present Confirmed by Javier Akins ([id number]) on 11/09/2020 8:05:39 PM Referred By: REFERRED SELF Confirmed By:Javier Akins
--- NOTE | 2020-11-09 20:29 | Electrocardiogram Report ---
Test Reason : Blood Pressure : / mmHG Vent. Rate : 080 BPM Atrial Rate : 080 BPM P-R Int : 142 ms QRS Dur : 112 ms QT Int : 426 ms P-R-T Axes : 058 -56 -19 degrees QTc Int : 491 ms Normal sinus rhythm Incomplete right bundle branch block Left anterior fascicular block Abnormal ECG When compared with ECG of 08-NOV-2020 05:55, (unconfirmed) Nonspecific T wave abnormality now evident in Inferior leads T wave inversion now evident in Lateral leads Confirmed by Javier Akins ([id number]) on 11/09/2020 8:28:32 PM Referred By: REFERRED SELF Confirmed By:Javier Akins
--- NOTE | 2020-11-09 20:38 | Electrocardiogram Report ---
Test Reason : Blood Pressure : / mmHG Vent. Rate : 067 BPM Atrial Rate : 067 BPM P-R Int : 128 ms QRS Dur : 110 ms QT Int : 472 ms P-R-T Axes : 050 -57 263 degrees QTc Int : 498 ms Normal sinus rhythm Incomplete right bundle branch block Left anterior fascicular block Prolonged QT Abnormal ECG When compared with ECG of 08-NOV-2020 19:40, (unconfirmed) T wave inversion now evident in Anterior leads Confirmed by Javier Akins ([id number]) on 11/09/2020 8:38:12 PM Referred By: REFERRED SELF Confirmed By:Javier Akins
[2020-11-09] MEDS: lisinopril 40 MG TAB PO SCH (21:09)
[2020-11-09] MEDS: ROSUVASTATIN CALCIUM 20 MG TAB PO SCH (21:09)
[2020-11-09] MEDS: SODIUM CHLORIDE 0.9% 1000ML 1,000 ML IV SCH (23:39)
[2020-11-10] MEDS: MoRPHine SULFATE 2 MG/ML CARP IV PRN (00:27)
[2020-11-10] MEDS: LEVOTHYROXINE SODIUM 125 MCG TABLET PO SCH (03:44)
[2020-11-10] MEDS: NITROGLYCERIN 2% OINTMENT 30GM TUBE EXT SCH ×3 (03:44→17:00)
[2020-11-10 06:11] LABS: Hematocrit (blood only) 39.9 % (37-47); Hemoglobin 12.9 g/dL (12.0-16.0); Mean Corpuscular Hemoglobin 31.5 pg (25-34); Mean Corpuscular Hgb Conc 32.3 g/dL (32-36); Mean Corpuscular Volume 97.6 fL (80-100); Mean Platelet Volume 11.3 fL (7.4-10.4); Platelet Count 195 K/uL (130-400); RDW Coefficient of Variation 13.1 % (11.5-14.5); RDW Standard Deviation 46.5 fL (36.4-46.3); Red Blood Count 4.09 M/uL (4.2-5.4); White Blood Count 6.38 K/uL (4.8-10.8)
[2020-11-10 06:21] LABS: INR 1.7 (0.9-1.1); Prothrombin Time 16.7 Seconds (9.0-12.0)
[2020-11-10 06:57] LABS: BUN Creatinine Ratio 25.2 (10-20); Calcium 8.1 mg/dl (8.5-10.1); Creatinine Clr Calc Pharmacy 42.9 ml/min; Est GFR (African American) 49.8 ml/min; Est GFR (Non-African American) 42.9 ml/min; Magnesium 2.1 mg/dl (1.8-2.4); Potassium 4.3 mmol/L (3.5-5.1)
[2020-11-10 07:25] LABS: Partial Thromboplastin Ratio 2.2
[2020-11-10 07:29] LABS: Partial Thromboplastin Time 58.4 Seconds (21.0-31.0)
[2020-11-10] MEDS: MULTIVITAMIN TAB PO SCH (07:34)
[2020-11-10] MEDS: EZETIMIBE 10 MG TABLET PO SCH (07:34)
[2020-11-10] MEDS: OMEGA-3 (PURIFIED FISH OIL) 1 GM CAP PO SCH (07:34)
[2020-11-10] MEDS: ISOSORBIDE MONO EXTENDED REL 60 MG TABCR PO SCH (07:35)
[2020-11-10] MEDS: CHOLECALCIFEROL 1,000 UNITS 25 MCG TAB PO SCH (07:36)
[2020-11-10] MEDS: MONTELUKAST SODIUM 10 MG TABLET PO SCH (07:36)
[2020-11-10] MEDS: METOPROLOL TARTRATE 100 MG TAB PO SCH ×2 (07:36→20:01)
[2020-11-10] MEDS: ASPIRIN 81 MG ECTAB PO SCH (07:36)
[2020-11-10] MEDS: FENOFIBRATE NANOCRYSTALLIZED 48 MG TABLET PO SCH (07:36)
--- NOTE | 2020-11-10 08:31 | Electrocardiogram Report ---
Test Reason : Blood Pressure : / mmHG Vent. Rate : 073 BPM Atrial Rate : 073 BPM P-R Int : 140 ms QRS Dur : 106 ms QT Int : 470 ms P-R-T Axes : 077 -55 267 degrees QTc Int : 517 ms Normal sinus rhythm Incomplete right bundle branch block Left axis deviation Prolonged QT Abnormal ECG When compared with ECG of 09-NOV-2020 04:55, No significant change was found Confirmed by Edinson Aleman ([id number] on 11/10/2020 8:30:55 AM Referred By: REFERRED SELF Confirmed By:Edinson Aleman
[2020-11-10] MEDS: INSULIN ASPART 100 UNITS/ML 3 ML PEN SC SCH ×4 (08:36→21:05)
[2020-11-10] MEDS: SODIUM CHLORIDE 0.9% 1000ML 1,000 ML IV SCH (10:06)
[2020-11-10] MEDS ORDERED: diphenhydrAMINE 50 MG/ML VIAL IV STA (10:39)
[2020-11-10] MEDS ORDERED: methylPREDNISolone 40 MG in SYRINGE 0 ML IV STA (10:42)
[2020-11-10] MEDS ORDERED: FAMOTIDINE 20MG IV PUSH 20 MG/5 ML SYR IV ONE (10:45)
[2020-11-10] MEDS ORDERED: methylPREDNISolone 125 MG/2 ML VIAL ONE (10:51)
[2020-11-10] MEDS ORDERED: MIDAZOLAM HCL 1 MG/ML 2ML VIAL ONE (10:52)
[2020-11-10] MEDS ORDERED: HEPARIN (PORCINE) 1000 UNIT/ML 10 ML (CATH LAB USE ONLY) ONE (10:52)
[2020-11-10] MEDS ORDERED: fentaNYL citrate 100 MCG/2 ML VIAL ONE (10:52)
[2020-11-10] MEDS ORDERED: NITROGLYCERIN/D5W 100MCG/ML 20ML SYR ONE ×2 (10:57→11:28)
--- NOTE | 2020-11-10 11:00 | Pre Anesthesia Assessment ---
Date of Service November 10, 2020 Pre Sedation Assessment Vital Signs Temp Pulse Pulse Resp BP Pulse Ox 11/10/20 08:00 73 11/10/20 07:30 36.9 C 76 18 129/65 95 11/10/20 03:09 36.7 C 75 20 136/71 99 11/09/20 23:36 36.8 C 80 20 117/54 L 100 11/09/20 19:07 36.6 C 71 20 149/76 H 95 11/09/20 16:00 36.6 C 97 H 67 20 152/55 H 98 Pre-Sedation Airway Assessment Smoking Status: Never smoker Short, Thick Neck: No Thyromental Distance: > or= 3.5 Finger Breadths Oral Cavity: + WNL Mallampati Class: III ASA: ASA3 NPO Status Date of Last Intake of Fluids: 11/09/20 Date of Last Intake of Solid Food: 11/09/20 Notes The planned sedation has been discussed with the patient. Informed Consent was obtained. I have identified the patient, determined the appropriateness of sedation and have assessed the patient immediately prior to the procedure. All medicine(s) and interventions are by my order.
[2020-11-10] MEDS ORDERED: methylPREDNISolone 125 MG in SYRINGE 0 ML IV STA (11:05)
[2020-11-10] MEDS ORDERED: niCARdipine HCL INJ 2.5 MG/ML 10 ML AMP ONE (11:28)
--- NOTE | 2020-11-10 12:03 | Cardiac Catheterization ---
Date of Service November 10, 2020 Cardiac Cath Report Cardiac Cath Report Procedure: 1. Coronary angiography History: This is a 70-year-old obese diabetic female who presented with hypertensive crisis, chest pain and had a slight increase in her cardiac troponins. Procedure summary: After informed consent was obtained the patient was brought to the cardiac catheterization lab. The patient was given Solu-Medrol, Benadryl and Pepcid prior to the procedure for dye allergy. An attempt was made to gain access from the right femoral artery however even with guided ultrasound the artery could never be accessed. I then switched to the right transradial approach and was able to complete the case. Following the procedure the patient was returned to the holding area the Development Analyst in stable condition. ACC data: Start time 11:04 AM End time 11:48 AM Opening aortic pressure 163/74 Closing aortic pressure 164/81 LV pressurevalve not crossed Sedation 1 mg IV Versed IV fluid 128 cc normal saline Contrast 115 cc Optiray Fluoroscopy time 5.1 minutes Radiation 751 mGy DAP 164.52 Rolle per centimeter squared Left dominant system AUC score 9 Coronary angiography: Injections into the left coronary artery revealed the left coronary to be dominant. There is diffuse disease throughout the left coronary system. The left main trunk is patent. The left circumflex artery gives off several marginal branches mid and distally that supply the lateral myocardium and posterior septum. There was a previous history of a PCI stent of the left circumflex artery which is not apparent on the angiograms. The left circumflex system is patent. In the very proximal portion of the LAD just after the takeoff from the left main trunk there is a subtotal stenosis and then a bifurcation to large diagonal and the main LAD. The remainder the LAD and diagonal systems are diffusely diseased but patent. There is no competitive flow from the vein graft noted when injecting the left coronary system. This saphenous vein graft to the LAD was cannulated. It is small in caliber but is patent supplying the distal LAD when injected. The injection of the right coronary artery revealed to be nondominant. The right coronary artery is diffusely diseased with nonobstructive disease. Summary: The saphenous vein graft to the LAD is small in caliber but patent. The [place] LAD has a subtotaled stenosis right after the takeoff of the left main trunk. The LAD system including diagonal branch are diffusely diseased with nonobstructive disease. The left circumflex is dominant and although there is a history of a previous possible stent or PCI there was not no evidence of that on these angiograms. The left circumflex system however, is widely patent. The right coronary artery is nondominant and has diffuse nonobstructive disease. Recommendations: The best treatment for this patient is can 10 you medical management of her coronary artery disease.
[2020-11-10] MEDS: INSULIN GLARGINE SOLOSTAR 100 UNITS/ML 3 ML PEN SC SCH ×2 (13:29→21:05)
--- NOTE | 2020-11-10 18:55 | Hospitalist Progress Note ---
Date of Service November 10, 2020 Assessment & Plan (1) NSTEMI (non-ST elevated myocardial infarction): Plan: NSTEMI managed medically, cardiac cath today with nonobstructive disease. From a medication standpoint she is taking aspirin 81, lisinopril 40 daily, Lopressor 100 twice daily, rosuvastatin 40, ezetimibe 10, fenofibrate 54, and Imdur for 60mg day. Will cont home regimen plus any changes per cardiology. (2) Hypertensive crisis: Plan: Improved. Stop nitro patch now and cont to work on titrating oral medications to goal BP. Cont low salt diet. (3) Acute diastolic heart failure: Plan: Pulmonary congestion seen on chest x-ray, pulmonary exam with crackles at bases bilaterally and 1+ peripheral edema bilaterally. She is now compensated. Holding off on diuretics per cardiology. Initial heart failure picture likely related to #2. Strict ins and O's, low-salt diet, daily standing weights. (4) Type 2 diabetes mellitus, with long-term current use of insulin: Plan: Complications include retinopathy and nephropathy. She is monitored by endo crinology at [facility]. Recent A1c was 6.9. Overall longstanding good control. Continue basal bolus insulin while admitted. At goal (5) Morbid obesity: Plan: We discussed how morbid obesity and diabetes as just 2 examples increase her risk of complications of COVID-19. We discussed the importance of vaccination. It is overall important especially with a history of hepatic steatosis, to work to change lifestyle for goal of decreased adipose tissue and increased lean muscle mass generally. (6) Psoriasis: Plan: No medications at this time. (7) DVT prophylaxis: Plan: Heparin drip/restart warfarin Full Code Dispo-to home when medically stable Odalys Nair DO [facility] Hospitalist Admission and Anticipated Discharge Date Admission Date: November 08, 2020 Subjective 70-year-old female presented with hypertensive crisis and NSTEMI Status post cardiac catheterization this morning revealing a patent saphenous vein graft to LAD. Diffuse disease that is nonobstructive within the LAD system. RCA is nondominant and has diffuse nonobstructive disease also. Med ical management recommended. She was returned to the floor and reported no pain, feeling better overall. She had a initial groin approach with a transition to a transradial approach. She is otherwise tolerating p.o. and doing well. Review of Systems Review of Systems: At least ten systems were reviewed and negative except as indicated in HPI above. Physical Exam Physical Exam: CONSTITUTIONAL: obese, vitals as above, generally well- appearing, no respiratory distress EYES: normal conjunctivae, no scleral icterus ENT: external ear and nose normal, oropharynx clear, MMM NECK: trachea midline RESPIRATORY: no rales or wheezes, normal respiratory effort CARDIOVASCULAR: regular rate and rhythm, S1 and 2 heard without murmurs, gallops or rubs, no JVD, no peripheral edema CHEST: inspection of chest was normal GASTROINTESTINAL: soft, nontender, nondistended, protuberant, no guarding MUSCULOSKELETAL: strength 5/5 throughout, ambulates independently, head is normocephalic and atraumatic SKIN: warm and dry, psoriasis plaque noted on right distal arm NEUROLOGIC: CN 2-12 grossly intact, no sensory deficit, normal cognition, normal speech, no tremor PSYCHIATRIC: alert cooperative and oriented to person, place and time. Results & Data Results & Data ([facility]) Vital Signs (Past 12 Hours) Vital Signs Temp Pulse Pulse Resp BP Pulse Ox 11/10/20 16:11 36.5 C 80 18 152/81 H 97 11/10/20 16:00 72 11/10/20 15:12 79 18 147/83 H 97 11/10/20 14:42 76 18 145/81 H 97 11/10/20 14:12 76 18 135/62 96 11/10/20 13:42 72 18 143/85 H 96 11/10/20 13:12 71 18 119/77 96 11/10/20 12:57 75 18 131/79 96 11/10/20 12:42 75 18 158/64 H 99 11/10/20 12:27 36.7 C 75 18 158/64 H 99 11/10/20 12:12 37.0 C 84 20 168/86 H 95 11/10/20 12:00 37.0 C 84 20 135/76 95 11/10/20 08:00 73 11/10/20 07:30 36.9 C 76 18 129/65 95 Laboratory Results Short CBC 11/10/20 Range/Units 05:48 WBC 6.38 (4.8-10.8) K/uL Hgb 12.9 (12.0-16.0) g/dL Hct 39.9 (37-47) % Plt Count 195 (130-400) K/uL BMP 11/10/20 05:48 Sodium 137 Potassium 4.3 D Chloride 104 Carbon Dioxide 29 BUN 32 H Creatinine 1.25 H Glucose 188 H Calcium 8.1 L Medications Administered Current Inpatient Medications Acetaminophen (Acetaminophen 325 Mg Tab) 650 mg PO Q4H PRN PRN Reason: Pain or Fever Stop: 12/08/20 10:18 Aspirin (Aspirin 81 Mg Ectab) 81 mg PO QAM [facility] Stop: 12/09/20 08:59 Last Admin: 11/10/20 07:36 Dose: 81 mg Documented by: Dextrose (Dextrose 50% 50 Ml Syringe) 25 - 50 ml IV UD PRN; Protocol PRN Reason: Hypoglycemia Protocol Stop: 12/08/20 10:18 Ezetimibe (Ezetimibe 10 Mg Tablet) 10 mg PO DAILY [facility] Stop: 12/09/20 08:59 Last Admin: 11/10/20 07:34 Dose: 10 mg Documented by: Fenofibrate (Fenofibrate Nanocrystallized 48 Mg Tablet) 48 mg PO DAILY [facility] Stop: 12/09/20 08:59 Last Admin: 11/10/20 07:36 Dose: 48 mg Documented by: Fish Oil ([place]-3 (Purified Fish Oil) 1 Gm Cap) 4 gm PO QAM [facility] Stop: 12/09/20 08:59 Last Admin: 11/10/20 07:34 Dose: 4 gm Documented by: Glucagon (Glucagon For Inj 1 Mg Vial) 1 mg SQ UD PRN; Protocol PRN Reason: Hypoglycemia Protocol Stop: 12/08/20 10:18 Glucose (Glucose 10 Tabs/Tube) 4 - 8 tabs PO UD PRN; Protocol PRN Reason: Hypoglycemia Protocol Stop: 12/08/20 10:18 Glucose (Glucose 40% Gel 15 Gm Tube) 15 - 30 gm PO UD PRN; Protocol PRN Reason: Hypoglycemia Protocol Stop: 12/08/20 10:18 Sodium Chloride (Nss 1000ml) 1,000 mls @ 100 mls/hr IV .Q10H [facility] Stop: 12/09/20 23:58 Last Admin: 11/10/20 10:06 Dose: 100 mls/hr Documented by: Insulin Aspart (Insulin Aspart 100 Units/Ml 3 Ml Pen) 0 units SC ACHS [facility] Stop: 12/08/20 11:29 Last Admin: 11/10/20 17:02 Dose: 10 units Documented by: Insulin Glargine (Insulin Glargine Solostar 100 Units/Ml 3 Ml Pen) 15 units SC BID [facility] Stop: 12/08/20 10:18 Last Admin: 11/10/20 13:29 Dose: 15 units Documented by: Isosorbide Mononitrate (Isosorbide [place] Extended Rel 60 Mg Tabcr) 60 mg PO QAM [facility] Stop: 12/09/20 08:59 Last Admin: 11/10/20 07:35 Dose: 60 mg Documented by: Levothyroxine Sodium (Levothyroxine Sodium 125 Mcg Tablet) 125 mcg PO DAILYBB [facility] Stop: 12/09/20 06:29 Last Admin: 11/10/20 03:44 Dose: 125 mcg Documented by: Lisinopril (Lisinopril 40 Mg Tab) 40 mg PO HS [facility] Stop: 12/08/20 20:59 Last Admin: 11/09/20 21:09 Dose: 40 mg Documented by: Metoprolol Tartrate (Metoprolol Tartrate 100 Mg Tab) 100 mg PO BID [facility] Stop: 12/08/20 20:59 Last Admin: 11/10/20 07:36 Dose: 100 mg Documented by: Miscellaneous (Carbohydrates For Hypoglycemia ) 15 - 30 gm PO UD PRN PRN Reason: Hypoglycemia Protocol Stop: 12/08/20 10:18 Montelukast Sodium (Montelukast Sodium 10 Mg Tablet) 10 mg PO DAILY [facility] Stop: 12/09/20 08:59 Last Admin: 11/10/20 07:36 Dose: 10 mg Documented by: Morphine Sulfate (Morphine Sulfate 2 Mg/Ml Carp) 2 mg IV Q1H PRN PRN Reason: chest pain Stop: 11/22/20 10:51 Last Admin: 11/10/20 00:27 Dose: 2 mg Documented by: Multivitamins (Multivitamin Tab) 1 tab PO QAM [facility] Stop: 12/09/20 08:59 Last Admin: 11/10/20 07:34 Dose: 1 tab Documented by: Nitroglycerin (Nitroglycerin Sl 0.4 Mg/Tab Tab) 0.4 mg SL UD PRN PRN Reason: Chest Pain Stop: 12/08/20 10:18 Ondansetron HCl (Ondansetron Inj 2 Mg/Ml 2 Ml Vial) 4 mg IV Q6H PRN PRN Reason: Nausea Stop: 12/08/20 10:18 Polyethylene Glycol (Polyethylene (Miralax) 17 Gm Pack) 17 gm PO DAILY PRN PRN Reason: Constipation Stop: 12/08/20 10:18 Rosuvastatin Calcium (Rosuvastatin Calcium 20 Mg Tab) 40 mg PO [facility] Stop: 12/08/20 20:59 Last Admin: 11/09/20 21:09 Dose: 40 mg Documented by: Vitamin D (Cholecalciferol 1,000 Units 25 Mcg Tab) 2,000 units PO [facility] Stop: 12/09/20 08:59 Last Admin: 11/10/20 07:36 Dose: 2,000 units Documented by:
[2020-11-10] MEDS ORDERED: WARFARIN SOD 5 MG TAB PO ONE (20:00)
[2020-11-10] MEDS: lisinopril 40 MG TAB PO SCH (20:01)
[2020-11-10] MEDS: ROSUVASTATIN CALCIUM 20 MG TAB PO SCH (20:03)
[2020-11-11] MEDS: LEVOTHYROXINE SODIUM 125 MCG TABLET PO SCH (06:20)
[2020-11-11 07:35] LABS: Hematocrit (blood only) 37.9 % (37-47); Hemoglobin 12.1 g/dL (12.0-16.0); Mean Corpuscular Hemoglobin 31.3 pg (25-34); Mean Corpuscular Hgb Conc 31.9 g/dL (32-36); Mean Corpuscular Volume 97.9 fL (80-100); Mean Platelet Volume 11.5 fL (7.4-10.4); Platelet Count 210 K/uL (130-400); RDW Standard Deviation 46.6 fL (36.4-46.3); Red Blood Count 3.87 M/uL (4.2-5.4); White Blood Count 10.36 K/uL (4.8-10.8)
[2020-11-11 07:53] LABS: INR 1.4 (0.9-1.1); Prothrombin Time 13.9 Seconds (9.0-12.0)
[2020-11-11 08:09] LABS: BUN Creatinine Ratio 27.3 (10-20); Calcium 8.4 mg/dl (8.5-10.1); Creatinine Clr Calc Pharmacy 53.9 ml/min; Est GFR (African American) 65.2 ml/min; Est GFR (Non-African American) 56.2 ml/min; Magnesium 2.2 mg/dl (1.8-2.4); Potassium 4.6 mmol/L (3.5-5.1)
[2020-11-11] MEDS: CHOLECALCIFEROL 1,000 UNITS 25 MCG TAB PO SCH (08:25)
[2020-11-11] MEDS: MONTELUKAST SODIUM 10 MG TABLET PO SCH (08:25)
[2020-11-11] MEDS: METOPROLOL TARTRATE 100 MG TAB PO SCH ×2 (08:25→21:14)
[2020-11-11] MEDS: EZETIMIBE 10 MG TABLET PO SCH (08:25)
[2020-11-11] MEDS: FENOFIBRATE NANOCRYSTALLIZED 48 MG TABLET PO SCH (08:25)
[2020-11-11] MEDS: OMEGA-3 (PURIFIED FISH OIL) 1 GM CAP PO SCH (08:25)
[2020-11-11] MEDS: ISOSORBIDE MONO EXTENDED REL 60 MG TABCR PO SCH (08:25)
[2020-11-11] MEDS: MULTIVITAMIN TAB PO SCH (08:25)
[2020-11-11] MEDS: ASPIRIN 81 MG ECTAB PO SCH (08:25)
[2020-11-11] MEDS: INSULIN ASPART 100 UNITS/ML 3 ML PEN SC SCH ×4 (08:27→21:15)
[2020-11-11] MEDS: INSULIN GLARGINE SOLOSTAR 100 UNITS/ML 3 ML PEN SC SCH ×2 (08:35→21:15)
[2020-11-11] MEDS: MoRPHine SULFATE 2 MG/ML CARP IV PRN ×2 (10:08→11:28)
[2020-11-11] MEDS ORDERED: LABETALOL HCL IV 5 MG/ML 20ML IV STA (10:22)
[2020-11-11] MEDS ORDERED: NITROGLYCERIN 2% OINTMENT 30GM TUBE ONE (10:42)
[2020-11-11] MEDS: SODIUM CHLORIDE 0.9% 1000ML 1,000 ML IV SCH ×2 (10:52→10:53)
[2020-11-11] MEDS ORDERED: NITROGLYCERIN 2% OINTMENT 30GM TUBE EXT SCH (11:00)
[2020-11-11] MEDS ORDERED: FUROSEMIDE 40 MG/4 ML VIAL IV ONE (11:32)
--- NOTE | 2020-11-11 11:39 | XRay Report ---
SINGLE VIEW CHEST CLINICAL HISTORY: Atypical chest pain. FINDINGS: An AP, portable, upright chest radiograph is compared to study dated 11/08/2020. Correlation is made with chest CT dated 02/07/2018. The patient is status post midline sternotomy. The heart is enlarged noting atherosclerotic calcification of the thoracic aorta. The mitral annulus is densely ca lcified. There is mild pulmonary vascular congestion. Mild airspace opacities are seen bilaterally. N o large pleural effusion or pneumothorax is seen. The skeletal structures are osteopenic. The bony th orax is grossly intact. IMPRESSION: 1. Cardiomegaly with mild pulmonary vascular congestion. 2. Bilateral airspace opacities likely represent mild pulmonary edema. Correlate clinically for evide nce of a superimposed infectious/inflammatory pneumonitis. This is similar to the 11/08/2020 examinati on, and radiographic follow-up to resolution is recommended. ACT 112: Negative or not required by law. Electronically signed by: Bartolome Tellez M.D. 11/11/2020 11:38 AM
--- NOTE | 2020-11-11 11:40 | Cardiology Progress Note ---
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 She is also wheezing. I will give her 40 Lasix IV now. Her EKG shows no acute changes which leads me suspect in regard to cardiac origin. I will draw additional troponin. Patient will have additional morphine. I have made her n.p.o. I will try some Nitropaste as well. Her cath yesterday showed nothing that could be related to an index artery and no real area to intervene on. We will try to continue with medical management at this time. Admission and Anticipated Discharge Date Admission Date: November 08, 2020 Subjective The patient had breakfast this morning and went to the bathroom and when she got back into bed she began to have chest pain radiating to her back. She also became markedly hypertensive and was given nitroglycerin, labetalol and morphine. She continues to have discomfort with minimal improvement. EKG shows no acute changes and is essentially unchanged from previous studies. Review of Systems Review of Systems: Review of Systems: See HPI for pertinent positives. All other 10 point review of systems are negative. Physical Exam Physical Exam: General: no acute distress and stated age Head: normocephalic, no masses, lesions, tenderness or abnormalities Eyes: conjunctiva are pink and non-injected, sclera clear Neck: supple, no adenopathy, no bruits, normal jugular venous pulse, no hepatojugular reflux Chest: normal shape and normal respiratory effort Lungs: Bilateral wheezing Cardiac Exam: - regular rate & rhythm, no murmurs gallops or rubs - normal S1, normal S2 Pulses: 2(+) throughout Abdomen: abdomen soft, non-tender, no abnormal masses and no hepatosplenomegaly Musculoskeletal: no gait disturbance, no joint inflammation, no deforming arthritis Extremities: no edema and no cyanosis Neuro: grossly normal exam Results & Data ([facility]) Vital Signs (Past 12 Hours) Vital Signs Temp Pulse Pulse Resp BP Pulse Ox 11/11/20 11:21 180/83 H 11/11/20 10:37 168/81 H 11/11/20 10:32 163/80 H 11/11/20 10:20 200/113 H 11/11/20 10:08 62 181/80 H 11/11/20 08:11 36.8 C 89 18 140/63 96 11/11/20 08:00 81 11/11/20 04:10 36.6 C 84 16 149/80 H 100 Laboratory Results Laboratory Results - last 24 hr 11/10/20 11/10/20 11/10/20 12:30 16:16 20:14 WBC RBC Hgb Hct MCV MCH MCHC RDW Std Deviation RDW Coeff of Ree Plt Count MPV PT INR Sodium Potassium Chloride Carbon Dioxide Anion Gap BUN Creatinine Est Cr Clr Drug Dosing Est GFR ( Amer) Est GFR (Non-Af Amer) BUN/Creatinine Ratio Glucose POC Glucose 233 H 287 H 243 H Calcium Magnesium 11/11/20 11/11/20 11/11/20 06:37 06:37 06:37 WBC 10.36 RBC 3.87 L Hgb 12.1 Hct 37.9 MCV 97.9 MCH 31.3 MCHC 31.9 L RDW Std Deviation 46.6 H RDW Coeff of Ree 13.0 Plt Count 210 MPV 11.5 H PT 13.9 H INR 1.4 H Sodium 140 Potassium 4.6 Chloride 107 Carbon Dioxide 25 Anion Gap 8.0 BUN 27 H Creatinine 1.00 Est Cr Clr Drug Dosing 53.9 Est GFR ( Amer) 65.2 Est GFR (Non-Af Amer) 56.2 BUN/Creatinine Ratio 27.3 H Glucose 239 H POC Glucose Calcium 8.4 L Magnesium 2.2 11/11/20 07:29 WBC RBC Hgb Hct MCV MCH MCHC RDW Std Deviation RDW Coeff of Ree Plt Count MPV PT INR Sodium Potassium Chloride Carbon Dioxide Anion Gap BUN Creatinine Est Cr Clr Drug Dosing Est GFR ( Amer) Est GFR (Non-Af Amer) BUN/Creatinine Ratio Glucose POC Glucose 236 H Calcium Magnesium Medications Administered Current Inpatient Medications Acetaminophen (Acetaminophen 325 Mg Tab) 650 mg PO Q4H PRN PRN Reason: Pain or Fever Stop: 12/08/20 10:18 Aspirin (Aspirin 81 Mg Ectab) [facility] Stop: 12/09/20 08:59 Last Admin: 11/11/20 08:25 Dose: 81 mg Documented by: Dextrose (Dextrose 50% 50 Ml Syringe) 25 - 50 ml IV UD PRN; Protocol PRN Reason: Hypoglycemia Protocol Stop: 12/08/20 10:18 Ezetimibe (Ezetimibe 10 Mg Tablet) 10 mg PO DAILY [facility] Stop: 12/09/20 08:59 Last Admin: 11/11/20 08:25 Dose: 10 mg Documented by: Fenofibrate (Fenofibrate Nanocrystallized 48 Mg Tablet) 48 mg PO DAILY [facility] Stop: 12/09/20 08:59 Last Admin: 11/11/20 08:25 Dose: 48 mg Documented by: Fish Oil ([place]-3 (Purified Fish Oil) 1 Gm Cap) 4 gm PO QAM [facility] Stop: 12/09/20 08:59 Last Admin: 11/11/20 08:25 Dose: 4 gm Documented by: Glucagon (Glucagon For Inj 1 Mg Vial) 1 mg SQ UD PRN; Protocol PRN Reason: Hypoglycemia Protocol Stop: 12/08/20 10:18 Glucose (Glucose 10 Tabs/Tube) 4 - 8 tabs PO UD PRN; Protocol PRN Reason: Hypoglycemia Protocol Stop: 12/08/20 10:18 Glucose (Glucose 40% Gel 15 Gm Tube) 15 - 30 gm PO UD PRN; Protocol PRN Reason: Hypoglycemia Protocol Stop: 12/08/20 10:18 Furosemide 40 mg/ Syringe 4 mls @ 4 mls/min IV ONE ONE Stop: 11/11/20 12:01 Insulin Aspart (Insulin Aspart 100 Units/Ml 3 Ml Pen) 0 units SC ACHS [facility] Stop: 12/08/20 11:29 Last Admin: 11/11/20 08:27 Dose: 9 units Documented by: Insulin Glargine (Insulin Glargine Solostar 100 Units/Ml 3 Ml Pen) 15 units SC BID [facility] Stop: 12/08/20 10:18 Last Admin: 11/11/20 08:35 Dose: 15 units Documented by: Isosorbide Mononitrate (Isosorbide Robertson Extended Rel 60 Mg Tabcr) 60 mg PO QAM [facility] Stop: 12/09/20 08:59 Last Admin: 11/11/20 08:25 Dose: 60 mg Documented by: Levothyroxine Sodium (Levothyroxine Sodium 125 Mcg Tablet) 125 mcg PO DAILYBB [facility] Stop: 12/09/20 06:29 Last Admin: 11/11/20 06:20 Dose: 125 mcg Documented by: Lisinopril (Lisinopril 40 Mg Tab) 40 mg PO HS [facility] Stop: 12/08/20 20:59 Last Admin: 11/10/20 20:01 Dose: 40 mg Documented by: Metoprolol Tartrate (Metoprolol Tartrate 100 Mg Tab) 100 mg PO BID [facility] Stop: 12/08/20 20:59 Last Admin: 11/11/20 08:25 Dose: 100 mg Documented by: Miscellaneous (Carbohydrates For Hypoglycemia ) 15 - 30 gm PO UD PRN PRN Reason: Hypoglycemia Protocol Stop: 12/08/20 10:18 Montelukast Sodium (Montelukast Sodium 10 Mg Tablet) 10 mg PO DAILY [facility] Stop: 12/09/20 08:59 Last Admin: 11/11/20 08:25 Dose: 10 mg Documented by: Morphine Sulfate (Morphine Sulfate 2 Mg/Ml Carp) 2 mg IV Q1H PRN PRN Reason: chest pain Stop: 11/22/20 10:51 Last Admin: 11/11/20 11:28 Dose: 2 mg Documented by: Multivitamins (Multivitamin Tab) 1 tab PO QAM [facility] Stop: 12/09/20 08:59 Last Admin: 11/11/20 08:25 Dose: 1 tab Documented by: Nitroglycerin (Nitroglycerin Sl 0.4 Mg/Tab Tab) 0.4 mg SL UD PRN PRN Reason: Chest Pain Stop: 12/08/20 10:18 Nitroglycerin (Nitroglycerin 2% Ointment 30gm Tube) 1 inch EXT Q6 [facility] Stop: 12/11/20 10:59 Last Admin: 11/11/20 10:52 Dose: Not Given Documented by: Ondansetron HCl (Ondansetron Inj 2 Mg/Ml 2 Ml Vial) 4 mg IV Q6H PRN PRN Reason: Nausea Stop: 12/08/20 10:18 Polyethylene Glycol (Polyethylene (Miralax) 17 Gm Pack) 17 gm PO DAILY PRN PRN Reason: Constipation Stop: 12/08/20 10:18 Rosuvastatin Calcium (Rosuvastatin Calcium 20 Mg Tab) 40 mg PO HS [facility] Stop: 12/08/20 20:59 Last Admin: 11/10/20 20:03 Dose: 40 mg Documented by: Vitamin D (Cholecalciferol 1,000 Units 25 Mcg Tab) 2,000 units PO QAM [facility] Stop: 12/09/20 08:59 Last Admin: 11/11/20 08:25 Dose: 2,000 units Documented by: Warfarin Sodium (Warfarin Sod 5 Mg Tab) 5 mg PO DAILY@1600 [facility] Stop: 12/11/20 15:59
[2020-11-11] MEDS: NITROGLYCERIN 2% OINTMENT 30GM TUBE EXT SCH ×3 (12:00→23:21)
[2020-11-11] MEDS ORDERED: FUROSEMIDE 40 MG in SYRINGE 0 ML IV ONE (12:00)
--- NOTE | 2020-11-11 13:46 | Electrocardiogram Report ---
Test Reason : Blood Pressure : / mmHG Vent. Rate : 093 BPM Atrial Rate : 093 BPM P-R Int : 150 ms QRS Dur : 118 ms QT Int : 394 ms P-R-T Axes : 055 -58 034 degrees QTc Int : 489 ms Normal sinus rhythm Right bundle branch block Left anterior fascicular block ST depression in Anterolateral leads , consider ischemia Abnormal ECG When compared with ECG of 10-NOV-2020 05:36, T-wave inversion in Anterior leads no longer present Confirmed by Edinson Aleman ([id number]) on 11/11/2020 1:46:32 PM Referred By: REFERRED SELF Confirmed By:Edinson Aleman
--- NOTE | 2020-11-11 15:47 | Hospitalist Progress Note ---
Date of Service November 11, 2020 Assessment & Plan (1) NSTEMI (non-ST elevated myocardial infarction): Plan: NSTEMI managed medically, cardiac cath today with nonobstructive disease. From a medication standpoint she is taking aspirin 81, lisinopril 40 daily, Lopressor 100 twice daily, rosuvastatin 40, ezetimibe 10, fenofibrate 54, and Imdur for 60mg day. Will cont home regimen plus any changes per cardiology. (2) Hypertensive crisis: Plan: Re-emerged BP elevation today. Initially treated with labetalol 10mg IV with improvement in BP to 160 systolic. Still felt chest pain so nitro paste added. Not much better and aroun [id number] cardiology saw her and ordered Lasix which improved her clinical picture. Continues on the nitro with no further Lasix anticipated. Monitor closely on telemetry. (3) Acute diastolic heart failure: Plan: Pulmonary congestion seen on chest x-ray, pulmonary exam with crackles at bases bilaterally, no peripheral edema. She is now compensated. Change in status as above, however, she is not back in heart failure at this time. PRN diuretics. Strict I/os, daily standing weights. (4) Type 2 diabetes mellitus, with long-term current use of insulin: Plan: Complications include retinopathy and nephropathy. She is monitored by endocrinology at [facility]. Recent A1c was 6.9. Overall longstanding good control. Continue basal bolus insulin while admitted. At goal (5) Morbid obesity: Plan: Weight loss advised. . (6) Psoriasis: Plan: No medications at this time. (7) DVT prophylaxis: Plan: Heparin drip/warfarin restarted, cont heparin until INR 2 or greater. Full Code Dispo-to home when medically stable [facility] Admission and Anticipated Discharge Date Admission Date: November 08, 2020 Subjective 70-year-old female presented with hypertensive crisis and NSTEMI Status post cardiac catheterization 11/10 revealing a patent saphenous vein graft to LAD. Diffuse disease that is nonobstructive within the LAD system. RCA is nondominant and has diffuse nonobstructive disease, also. Medical management recommended. She was returned to the floor and reported no pain, feeling better overall. She had a initial groin approach with a transition to a transradial approach. She did well overnight with surgical sites healing well. The patient had breakfast this morning and went to the bathroom and when she got back into bed she began to have chest pain radiating to her back. She became flushed and developed BP 180 and became tachycardic with SOB. She was given nitro paste, Lasix and labetalol. reassessment later she appears improved and BP is 115 systolic. She is hungry. Review of Systems Review of Systems: At least ten systems were reviewed and negative except as indicated in HPI above. Physical Exam Physical Exam: CONSTITUTIONAL: obese, vitals as above, mild distress, flushed EYES: normal conjunctivae, no scleral icterus ENT: external ear and nose normal, oropharynx clear, MMM NECK: trachea midline RESPIRATORY: no rales or wheezes, mild crackles at bases bilaterally, slight increase in respiratory effort CARDIOVASCULAR: regular rate and rhythm, S1 and 2 heard without murmurs, gallops or rubs, no JVD, no peripheral edema CHEST: inspection of chest was normal GASTROINTESTINAL: soft, nontender, nondistended, protuberant, no guarding MUSCULOSKELETAL: strength 5/5 throughout, ambulates independently, head is normocephalic and atraumatic SKIN: warm and dry, psoriasis plaque noted on right distal arm NEUROLOGIC: CN 2-12 grossly intact, no sensory deficit, normal cognition, normal speech, no tremor PSYCHIATRIC: alert cooperative and oriented to person, place and time. Results & Data Results & Data ([facility]) Vital Signs (Past 12 Hours) Vital Signs Temp Pulse Pulse Resp BP Pulse Ox 11/11/20 11:55 93 H 174/90 H 11/11/20 11:21 180/83 H 11/11/20 10:37 168/81 H 11/11/20 10:32 163/80 H 11/11/20 10:20 200/113 H 11/11/20 10:08 62 181/80 H 11/11/20 08:11 36.8 C 89 18 140/63 96 11/11/20 08:00 81 11/11/20 04:10 36.6 C 84 16 149/80 H 100 Laboratory Results Short CBC 11/11/20 Range/Units 06:37 WBC 10.36 (4.8-10.8) K/uL Hgb 12.1 (12.0-16.0) g/dL Hct 37.9 (37-47) % Plt Count 210 (130-400) K/uL BMP 11/11/20 06:37 Sodium 140 Potassium 4.6 Chloride 107 Carbon Dioxide 25 BUN 27 H Creatinine 1.00 Glucose 239 H Calcium 8.4 L Cardiac Enzymes 11/11/20 Range/Units 11:53 Troponin I 0.459 H* (0-0.045) ng/ml Diagnostic Findings Chest X-Ray 11/11/20 10:42 SINGLE VIEW CHEST CLINICAL HISTORY: Atypical chest pain. FINDINGS: An AP, portable, upright chest radiograph is compared to study dated 11/08/2020. Correlation is made with chest CT dated 02/07/2018. The patient is status post midline sternotomy. The heart is enlarged noting atherosclerotic calcification of the thoracic aorta. The mitral annulus is densely calcified. There is mild pulmonary vascular congestion. Mild airspace opacities are seen bilaterally. No large pleural effusion or pneumothorax is seen. The skeletal structures are osteopenic. The bony thorax is grossly intact. IMPRESSION: 1. Cardiomegaly with mild pulmonary vascular congestion. 2. Bilateral airspace opacities likely represent mild pulmonary edema. Correlate clinically for evidence of a superimposed infectious/inflammatory pneumonitis. This is similar to the 11/08/2020 examination, and radiographic follow-up to resolution is recommended. ACT 112: Negative or not required by law. Electronically signed by: Bartolome Tellez M.D. 11/11/2020 11:38 AM Medications Administered Current Inpatient Medications Acetaminophen (Acetaminophen 325 Mg Tab) 650 mg PO Q4H PRN PRN Reason: Pain or Fever Stop: 12/08/20 10:18 Aspirin (Aspirin 81 Mg Ectab) 81 mg PO QAM [facility] Stop: 12/09/20 08:59 Last Admin: 11/11/20 08:25 Dose: 81 mg Documented by: Dextrose (Dextrose 50% 50 Ml Syringe) 25 - 50 ml IV UD PRN; Protocol PRN Reason: Hypoglycemia Protocol Stop: 12/08/20 10:18 Ezetimibe (Ezetimibe 10 Mg Tablet) 10 mg PO DAILY [facility] Stop: 12/09/20 08:59 Last Admin: 11/11/20 08:25 Dose: 10 mg Documented by: Fenofibrate (Fenofibrate Nanocrystallized 48 Mg Tablet) 48 mg PO DAILY [facility] Stop: 12/09/20 08:59 Last Admin: 11/11/20 08:25 Dose: 48 mg Documented by: Fish Oil ([place]-3 (Purified Fish Oil) 1 Gm Cap) 4 gm PO QAM [facility] Stop: 12/09/20 08:59 Last Admin: 11/11/20 08:25 Dose: 4 gm Documented by: Glucagon (Glucagon For Inj 1 Mg Vial) 1 mg SQ UD PRN; Protocol PRN Reason: Hypoglycemia Protocol Stop: 12/08/20 10:18 Glucose (Glucose 10 Tabs/Tube) 4 - 8 tabs PO UD PRN; Protocol PRN Reason: Hypoglycemia Protocol Stop: 12/08/20 10:18 Glucose (Glucose 40% Gel 15 Gm Tube) 15 - 30 gm PO UD PRN; Protocol PRN Reason: Hypoglycemia Protocol Stop: 12/08/20 10:18 Insulin Aspart (Insulin Aspart 100 Units/Ml 3 Ml Pen) 0 units SC ACHS [facility] Stop: 12/08/20 11:29 Last Admin: 11/11/20 12:00 Dose: 3 units Documented by: Insulin Glargine (Insulin Glargine Solostar 100 Units/Ml 3 Ml Pen) 15 units SC BID [facility] Stop: 12/08/20 10:18 Last Admin: 11/11/20 08:35 Dose: 15 units Documented by: Levothyroxine Sodium (Levothyroxine Sodium 125 Mcg Tablet) 125 mcg PO DAILYBB [facility] Stop: 12/09/20 06:29 Last Admin: 11/11/20 06:20 Dose: 125 mcg Documented by: Lisinopril (Lisinopril 40 Mg Tab) 40 mg PO HS [facility] Stop: 12/08/20 20:59 Last Admin: 11/10/20 20:01 Dose: 40 mg Documented by: Metoprolol Tartrate (Metoprolol Tartrate 100 Mg Tab) 100 mg PO BID [facility] Stop: 12/08/20 20:59 Last Admin: 11/11/20 08:25 Dose: 100 mg Documented by: Miscellaneous (Carbohydrates For Hypoglycemia ) 15 - 30 gm PO UD PRN PRN Reason: Hypoglycemia Protocol Stop: 12/08/20 10:18 Montelukast Sodium (Montelukast Sodium 10 Mg Tablet) 10 mg PO DAILY [facility] Stop: 12/09/20 08:59 Last Admin: 11/11/20 08:25 Dose: 10 mg Documented by: Morphine Sulfate (Morphine Sulfate 2 Mg/Ml Carp) 2 mg IV Q1H PRN PRN Reason: chest pain Stop: 11/22/20 10:51 Last Admin: 11/11/20 11:28 Dose: 2 mg Documented by: Multivitamins (Multivitamin Tab) 1 tab PO QAM [facility] Stop: 12/09/20 08:59 Last Admin: 11/11/20 08:25 Dose: 1 tab Documented by: Nitroglycerin (Nitroglycerin Sl 0.4 Mg/Tab Tab) 0.4 mg SL UD PRN PRN Reason: Chest Pain Stop: 12/08/20 10:18 Nitroglycerin (Nitroglycerin 2% Ointment 30gm Tube) 1 inch EXT Q6 [facility] Stop: 12/11/20 10:59 Last Admin: 11/11/20 10:52 Dose: Not Given Documented by: Nitroglycerin (Nitroglycerin 2% Ointment 30gm Tube) 1 inch EXT Q6H [facility] Stop: 12/11/20 11:44 Last Admin: 11/11/20 12:00 Dose: Not Given Documented by: Ondansetron HCl (Ondansetron Inj 2 Mg/Ml 2 Ml Vial) 4 mg IV Q6H PRN PRN Reason: Nausea Stop: 12/08/20 10:18 Pantoprazole Sodium (Pantoprazole 40 Mg Tab) 40 mg PO BID [facility] Stop: 12/11/20 11:44 Polyethylene Glycol (Polyethylene (Miralax) 17 Gm Pack) 17 gm PO DAILY PRN PRN Reason: Constipation Stop: 12/08/20 10:18 Rosuvastatin Calcium (Rosuvastatin Calcium 20 Mg Tab) 40 mg PO HS [facility] Stop: 12/08/20 20:59 Last Admin: 11/10/20 20:03 Dose: 40 mg Documented by: Vitamin D (Cholecalciferol 1,000 Units 25 Mcg Tab) 2,000 units PO QAM [facility] Stop: 12/09/20 08:59 Last Admin: 11/11/20 08:25 Dose: 2,000 units Documented by: Warfarin Sodium (Warfarin Sod 5 Mg Tab) 5 mg PO DAILY@1600 [facility] Stop: 12/11/20 15:59
[2020-11-11] MEDS ORDERED: WARFARIN SOD 5 MG TAB PO SCH (16:00)
[2020-11-11] MEDS: PANTOprazole 40 MG TAB PO SCH ×2 (16:43→21:13)
[2020-11-11] MEDS ORDERED: Nursing to Pharmacy Communication SCH (17:00)
[2020-11-11] MEDS: ROSUVASTATIN CALCIUM 20 MG TAB PO SCH (21:13)
[2020-11-11] MEDS: lisinopril 40 MG TAB PO SCH (21:14)
[2020-11-12] MEDS: LEVOTHYROXINE SODIUM 125 MCG TABLET PO SCH (04:45)
[2020-11-12] MEDS: NITROGLYCERIN 2% OINTMENT 30GM TUBE EXT SCH ×3 (04:45→18:07)
[2020-11-12 05:53] LABS: Hematocrit (blood only) 35.3 % (37-47); Hemoglobin 11.3 g/dL (12.0-16.0); Mean Corpuscular Hemoglobin 30.8 pg (25-34); Mean Corpuscular Volume 96.2 fL (80-100); Platelet Count 194 K/uL (130-400); RDW Coefficient of Variation 13.1 % (11.5-14.5); RDW Standard Deviation 45.9 fL (36.4-46.3); Red Blood Count 3.67 M/uL (4.2-5.4); White Blood Count 10.41 K/uL (4.8-10.8)
[2020-11-12 06:04] LABS: INR 1.6 (0.9-1.1); Prothrombin Time 15.5 Seconds (9.0-12.0)
[2020-11-12 06:31] LABS: Est GFR (African American) 53.9 ml/min; Est GFR (Non-African American) 46.5 ml/min; Potassium 3.8 mmol/L (3.5-5.1)
[2020-11-12] MEDS: INSULIN ASPART 100 UNITS/ML 3 ML PEN SC SCH ×4 (08:24→21:57)
[2020-11-12] MEDS: FENOFIBRATE NANOCRYSTALLIZED 48 MG TABLET PO SCH (08:25)
[2020-11-12] MEDS: MONTELUKAST SODIUM 10 MG TABLET PO SCH (08:25)
[2020-11-12] MEDS: ASPIRIN 81 MG ECTAB PO SCH (08:25)
[2020-11-12] MEDS: EZETIMIBE 10 MG TABLET PO SCH (08:25)
[2020-11-12] MEDS: METOPROLOL TARTRATE 100 MG TAB PO SCH ×2 (08:25→21:56)
[2020-11-12] MEDS: MULTIVITAMIN TAB PO SCH (08:25)
[2020-11-12] MEDS: OMEGA-3 (PURIFIED FISH OIL) 1 GM CAP PO SCH (08:25)
[2020-11-12] MEDS: INSULIN GLARGINE SOLOSTAR 100 UNITS/ML 3 ML PEN SC SCH ×2 (08:26→21:57)
[2020-11-12] MEDS: PANTOprazole 40 MG TAB PO SCH ×2 (08:26→21:56)
[2020-11-12] MEDS: CHOLECALCIFEROL 1,000 UNITS 25 MCG TAB PO SCH (08:26)
[2020-11-12] MEDS ORDERED: SODIUM CHLORIDE 0.9% 1000ML 1,000 ML IV SCH ×2 (10:00→10:30)
[2020-11-12] MEDS ORDERED: PHYTONADIONE PED 1 MG, ORA-SWEET SYRUP 2.25 ML, ORA-PLUS SUSP VEHICLE 2.25 ML, BARCODE ... PO ONE (10:15)
--- NOTE | 2020-11-12 10:25 | Cardiology Progress Note ---
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 I reviewed the cardiac catheterization films with Dr. Rivas our interventionalists. The patient has a high-grade stenosis of the LAD just after the takeoff from the left main trunk. Her bypass graft which was placed in 2004 is to the LAD and although it is patent it is not very large in diameter and with injection it appears that it supplies the mid and distal LAD but there is no retrograde flow up to the proximal LAD and large diagonal branch. EKG suggests anterior wall ischemia when she is having chest pain. She has apical hypokinesis on her most recent echocardiogram. As discussed above, I believe that this is the etiology of her angina. I am concerned that if she returns home she could have additional reoccurrence and she has essentially failed medical therapy here in the hospital. Dr. Rivas feels confident that he could place a stent in the proximal LAD with an acceptable risk. This would open up and supply good flow to her LAD and the large diagonal branch. I discussed this option at length with the patient. In a shared decision making process, the patient is willing to proceed and I will make her n.p.o. She did have breakfast so the plan is for this afternoon. Her INR is 1.6 today and she was restarted on warfarin last night. Warfarin is obviously on hold but I also gave her a milligram of vitamin K. I believe it would be all right to proceed. Admission and Anticipated Discharge Date Admission Date: November 08, 2020 Subjective The patient has had no additional angina since yesterday, however she did have a bump in her cardiac troponins. Review of Systems Review of Systems: Review of Systems: See HPI for pertinent positives. All other 10 point review of systems are negative. Physical Exam Physical Exam: General: no acute distress and stated age Head: normocephalic, no masses, lesions, tenderness or abnormalities Eyes: conjunctiva are pink and non-injected, sclera clear Neck: supple, no adenopathy, no bruits, normal jugular venous pulse, no hepatojugular reflux Chest: normal shape and normal respiratory effort Lungs: Bilateral wheezing Cardiac Exam: - regular rate & rhythm, no murmurs gallops or rubs - normal S1, normal S2 Pulses: 2(+) throughout Abdomen: abdomen soft, non-tender, no abnormal masses and no hepatosplenomegaly Musculoskeletal: no gait disturbance, no joint inflammation, no deforming arthritis Extremities: no edema and no cyanosis Neuro: grossly normal exam ENMT: Mallampati Class: III Results & Data ([facility]) Vital Signs (Past 12 Hours) Vital Signs Temp Pulse Pulse Resp BP BP Pulse Ox 11/12/20 08:00 36.5 C 66 18 136/55 L 95 11/12/20 07:00 73 11/12/20 04:54 36.8 C 78 14 131/75 96 11/12/20 00:08 36.7 C 77 153/78 H 100 11/11/20 23:55 67 Laboratory Results Laboratory Results - last 24 hr 11/11/20 11/11/20 11/11/20 11:37 11:53 16:23 WBC RBC Hgb Hct MCV MCH MCHC RDW Std Deviation RDW Coeff of Ree Plt Count MPV PT INR Sodium Potassium Chloride Carbon Dioxide Anion Gap BUN Creatinine Est Cr Clr Drug Dosing Est GFR ( Amer) Est GFR (Non-Af Amer) BUN/Creatinine Ratio Glucose POC Glucose 244 H 276 H Calcium Magnesium Troponin I 0.459 H* 11/11/20 11/12/20 11/12/20 21:01 05:27 05:27 WBC 10.41 RBC 3.67 L Hgb 11.3 L Hct 35.3 L MCV 96.2 MCH 30.8 MCHC 32.0 RDW Std Deviation 45.9 RDW Coeff of Ree 13.1 Plt Count 194 MPV 11.0 H PT 15.5 H INR 1.6 H Sodium Potassium Chloride Carbon Dioxide Anion Gap BUN Creatinine Est Cr Clr Drug Dosing Est GFR ( Amer) Est GFR (Non-Af Amer) BUN/Creatinine Ratio Glucose POC Glucose 284 H Calcium Magnesium Troponin I 11/12/20 11/12/20 11/12/20 05:27 05:27 07:14 WBC RBC Hgb Hct MCV MCH MCHC RDW Std Deviation RDW Coeff of Ree Plt Count MPV PT INR Sodium 140 Potassium 3.8 D Chloride 105 Carbon Dioxide 29 Anion Gap 6.0 BUN 33 H Creatinine 1.17 Est Cr Clr Drug Dosing 46.0 Est GFR ( Amer) 53.9 Est GFR (Non-Af Amer) 46.5 BUN/Creatinine Ratio 28.0 H Glucose 118 H POC Glucose 110 H Calcium 8.0 L Magnesium 2.0 Troponin I 2.570 H* Medications Administered Current Inpatient Medications Acetaminophen (Acetaminophen 325 Mg Tab) 650 mg PO Q4H PRN PRN Reason: Pain or Fever Stop: 12/08/20 10:18 Aspirin (Aspirin 81 Mg Ectab) 81 mg PO QAM JASMEET Stop: 12/09/20 08:59 Last Admin: 11/12/20 08:25 Dose: 81 mg Documented by: Dextrose (Dextrose 50% 50 Ml Syringe) 25 - 50 ml IV UD PRN; Protocol PRN Reason: Hypoglycemia Protocol Stop: 12/08/20 10:18 Ezetimibe (Ezetimibe 10 Mg Tablet) 10 mg PO DAILY JASMEET Stop: 12/09/20 08:59 Last Admin: 11/12/20 08:25 Dose: 10 mg Documented by: Fenofibrate (Fenofibrate Nanocrystallized 48 Mg Tablet) 48 mg PO DAILY JASMEET Stop: 12/09/20 08:59 Last Admin: 11/12/20 08:25 Dose: 48 mg Documented by: Fish Oil (Channing-3 (Purified Fish Oil) 1 Gm Cap) 4 gm PO QAM JASEMET Stop: 12/09/20 08:59 Last Admin: 11/12/20 08:25 Dose: 4 gm Documented by: Glucagon (Glucagon For Inj 1 Mg Vial) 1 mg SQ UD PRN; Protocol PRN Reason: Hypoglycemia Protocol Stop: 12/08/20 10:18 Glucose (Glucose 10 Tabs/Tube) 4 - 8 tabs PO UD PRN; Protocol PRN Reason: Hypoglycemia Protocol Stop: 12/08/20 10:18 Glucose (Glucose 40% Gel 15 Gm Tube) 15 - 30 gm PO UD PRN; Protocol PRN Reason: Hypoglycemia Protocol Stop: 12/08/20 10:18 Sodium Chloride (Nss 1000ml) 1,000 mls @ 100 mls/hr IV .Q10H JASMETE Stop: 12/12/20 09:59 Sodium Chloride (Nss 1000ml) 1,000 mls @ 80 mls/hr IV .[id number] JASMEET Stop: 12/12/20 10:29 Insulin Aspart (Insulin Aspart 100 Units/Ml 3 Ml Pen) 0 units SC ACHS JASMEET Stop: 12/08/20 11:29 Last Admin: 11/12/20 08:24 Dose: 2 units Documented by: Insulin Glargine (Insulin Glargine Solostar 100 Units/Ml 3 Ml Pen) 15 units SC BID JASMEET Stop: 12/08/20 10:18 Last Admin: 11/12/20 08:26 Dose: 15 units Documented by: Levothyroxine Sodium (Levothyroxine Sodium 125 Mcg Tablet) 125 mcg PO DAILYBB JASMEET Stop: 12/09/20 06:29 Last Admin: 11/12/20 04:45 Dose: 125 mcg Documented by: Lisinopril (Lisinopril 40 Mg Tab) 40 mg PO HS [facility] Stop: 12/08/20 20:59 Last Admin: 11/11/20 21:14 Dose: 40 mg Documented by: Metoprolol Tartrate (Metoprolol Tartrate 100 Mg Tab) 100 mg PO BID [facility] Stop: 12/08/20 20:59 Last Admin: 11/12/20 08:25 Dose: 100 mg Documented by: Miscellaneous (Carbohydrates For Hypoglycemia ) 15 - 30 gm PO UD PRN PRN Reason: Hypoglycemia Protocol Stop: 12/08/20 10:18 Montelukast Sodium (Montelukast Sodium 10 Mg Tablet) 10 mg PO DAILY [facility] Stop: 12/09/20 08:59 Last Admin: 11/12/20 08:25 Dose: 10 mg Documented by: Morphine Sulfate (Morphine Sulfate 2 Mg/Ml Carp) 2 mg IV Q1H PRN PRN Reason: chest pain Stop: 11/22/20 10:51 Last Admin: 11/11/20 11:28 Dose: 2 mg Documented by: Multivitamins (Multivitamin Tab) 1 tab PO QAM JASMEET Stop: 12/09/20 08:59 Last Admin: 11/12/20 08:25 Dose: 1 tab Documented by: Nitroglycerin (Nitroglycerin Sl 0.4 Mg/Tab Tab) 0.4 mg SL UD PRN PRN Reason: Chest Pain Stop: 12/08/20 10:18 Nitroglycerin (Nitroglycerin 2% Ointment 30gm Tube) 1 inch EXT Q6H [facility] Stop: 12/11/20 11:44 Last Admin: 11/12/20 04:45 Dose: 1 inch Documented by: Ondansetron HCl (Ondansetron Inj 2 Mg/Ml 2 Ml Vial) 4 mg IV Q6H PRN PRN Reason: Nausea Stop: 12/08/20 10:18 Pantoprazole Sodium (Pantoprazole 40 Mg Tab) 40 mg PO BID [facility] Stop: 12/11/20 11:44 Last Admin: 11/12/20 08:26 Dose: 40 mg Documented by: Polyethylene Glycol (Polyethylene (Miralax) 17 Gm Pack) 17 gm PO DAILY PRN PRN Reason: Constipation Stop: 12/08/20 10:18 Rosuvastatin Calcium (Rosuvastatin Calcium 20 Mg Tab) 40 mg PO HS [facility] Stop: 12/08/20 20:59 Last Admin: 11/11/20 21:13 Dose: 40 mg Documented by: Vitamin D (Cholecalciferol 1,000 Units 25 Mcg Tab) 2,000 units PO QAM [facility] Stop: 12/09/20 08:59 Last Admin: 11/12/20 08:26 Dose: 2,000 units Documented by: Warfarin Sodium (Warfarin Sod 5 Mg Tab) 5 mg PO DAILY@1600 [facility] Stop: 12/11/20 15:59 Last Admin: 11/11/20 16:43 Dose: 5 mg Documented by:
[2020-11-12] MEDS ORDERED: FAMOTIDINE 20MG IV PUSH 20 MG/5 ML SYR IV ONE (13:00)
[2020-11-12] MEDS ORDERED: fentaNYL citrate 100 MCG/2 ML VIAL ONE (14:24)
[2020-11-12] MEDS ORDERED: HEPARIN (PORCINE) 1000 UNIT/ML 10 ML (CATH LAB USE ONLY) ONE (14:24)
[2020-11-12] MEDS ORDERED: niCARdipine HCL INJ 2.5 MG/ML 10 ML AMP ONE (14:24)
[2020-11-12] MEDS ORDERED: MIDAZOLAM HCL 1 MG/ML 2ML VIAL ONE (14:24)
[2020-11-12] MEDS ORDERED: NITROGLYCERIN/D5W 100MCG/ML 20ML SYR ONE (14:25)
[2020-11-12] MEDS ORDERED: diphenhydrAMINE 50 MG/ML VIAL ONE (14:27)
[2020-11-12] MEDS ORDERED: methylPREDNISolone 125 MG/2 ML VIAL ONE (14:27)
--- NOTE | 2020-11-12 15:53 | Pre Anesthesia Assessment ---
Date of Service November 12, 2020 Pre Sedation Assessment Vital Signs Temp Pulse Pulse Resp BP BP Pulse Ox 11/12/20 14:20 81 191/83 H 97 11/12/20 12:00 98.1 F 78 17 154/78 H 95 11/12/20 08:00 97.7 F 66 18 136/55 L 95 11/12/20 07:00 73 11/12/20 04:54 98.2 F 78 14 131/75 96 11/12/20 00:08 98.1 F 77 153/78 H 100 11/11/20 23:55 67 11/11/20 19:45 98.2 F 74 18 115/67 96 11/11/20 16:00 82 11/11/20 15:53 98.1 F 83 18 115/54 L Cardiovascular RRR, no murmur, no edema Respiratory normal respiratory effort, lungs clear to auscultation Pre-Sedation Airway Assessment Smoking Status: Never smoker Hx Sleep Apnea: No Hx Difficult Intubation: No Short, Thick Neck: Yes Thyromental Distance: > or= 3.5 Finger Breadths Oral Cavity: + WNL Mallampati Class: III ASA: ASA3 NPO Status Date of Last Intake of Fluids: 11/12/20 Time of Last Intake of Fluids: 07:30 Date of Last Intake of Solid Food: 11/12/20 Time of Last Intake of Solid Foods: 07:30 Procedure Planning Contraindications for Sedation: none Current Medications Reviewed: Yes Notes The planned sedation has been discussed with the patient. Informed Consent was obtained. I have identified the patient, determined the appropriateness of sedation and have assessed the patient immediately prior to the procedure. All medicine(s) and interventions are by my order.
--- NOTE | 2020-11-12 16:57 | Hospitalist Progress Note ---
Date of Service November 12, 2020 Assessment & Plan (1) NSTEMI (non-ST elevated myocardial infarction): Plan: NSTEMI Plan for cardiac cath today INR reversed with Vit K Appreciate cardiology input Continue aspirin, lisinopril, metoprolol, statin (2) Hypertensive crisis: Plan: BP remains uncontrolled Continue lisinopril, metoprolol, nitroglycerin Monitor (3) Acute diastolic heart failure: Plan: Volume status improved Received IV Lasix Monitor I/Os, daily weight Diuretics PRN (4) Type 2 diabetes mellitus, with long-term current use of insulin: Plan: Diabetic Retinopathy Diabetic Nephropathy [place] [facility] [place]1c was 6.9 Continue Insulin (5) Morbid obesity: Plan: BMI: 42 (6) Psoriasis: Plan: Not on any medications Paroxysmal atrial fibrillation Pulmonary hold Received vitamin K for cardiac catheterization Monitor INR (7) DVT prophylaxis: Plan: On IV Heparin Coumadin on hols for Cardiac Cath /warfarin restarted, cont heparin until INR 2 or greater. Full Code Dispo-to home when medically stable [facility] Hospital[facility] Admission and Anticipated Discharge Date Admission Date: November 08, 2020 Subjective Seen and examined at bedside Denies any chest pain this morning Also denies any dyspnea, dizziness, nausea, abdominal pain Plan for repeat cardiac catheterization today Review of Systems Review of Systems: All systems reviewed & are unremarkable except as noted in Subjective Physical Exam Physical Exam: Physical Exam: Vitals signs as noted above General Appearance:Morbidly Obese, no apparent distress Head: normocephalic, Atraumatic Eyes: normal inspection, EOMI Neck: supple, Trachea midline Respiratory/Chest: Normal breath sounds, CTA, No accessory muscle use Cardiovascular: S1, S2, No murmur Abdomen/GI:Soft, Non tender, Bowel sounds present Extremities/Musculoskeletal:normal inspection, 1-2 + B/L edema Neurologic/Psych:AAOX3, grossly no focal neurological deficits Skin: normal color, warm Results & Data Results & Data ([facility]) Vital Signs (Past 12 Hours) Vital Signs Temp Pulse Pulse Resp BP BP Pulse Ox 11/12/20 14:20 81 191/83 H 97 11/12/20 12:00 36.7 C 78 17 154/78 H 95 11/12/20 08:00 36.5 C 66 18 136/55 L 95 11/12/20 07:00 73 11/12/20 04:54 36.8 C 78 14 131/75 96 Laboratory Results Short CBC 11/12/20 Range/Units 05:27 WBC 10.41 (4.8-10.8) K/uL Hgb 11.3 L (12.0-16.0) g/dL Hct 35.3 L (37-47) % Plt Count 194 (130-400) K/uL BMP 11/12/20 05:27 Sodium 140 Potassium 3.8 D Chloride 105 Carbon Dioxide 29 BUN 33 H Creatinine 1.17 Glucose 118 H Calcium 8.0 L Cardiac Enzymes 11/12/20 Range/Units 05:27 Troponin I 2.570 H* (0-0.045) ng/ml
[2020-11-12] MEDS ORDERED: CLOPIDOGREL BISULFATE 300 MG TAB ONE (17:03)
--- NOTE | 2020-11-12 17:20 | Post Anesthesia Assessment ---
Date of Service November 12, 2020 Post Sedation Assessment Vital Signs Temp Pulse Pulse Resp BP BP Pulse Ox 11/12/20 14:20 81 191/83 H 97 11/12/20 12:00 98.1 F 78 17 154/78 H 95 11/12/20 08:00 97.7 F 66 18 136/55 L 95 11/12/20 07:00 73 11/12/20 04:54 98.2 F 78 14 131/75 96 11/12/20 00:08 98.1 F 77 153/78 H 100 11/11/20 23:55 67 11/11/20 19:45 98.2 F 74 18 115/67 96 Recovery Score Activity: Moves 4 extremities Respiration: Deep Breath/Cough Circulation: +/-20% PreAnes Value Consciousness: Fully Awake Oxygen Saturation: > 92% On Room Air Post Anesthesia Score: 10 Discharge Sedation Level of Care: Fast Track Phase II Post Sedation Plan On clinical assessment, the patient appears to have tolerated the sedation wi thout complications. Patient is recovering as anticipated. Patient will continue to be monitored by nursing and may be discharged when sedation discharge criteria are met per below protocol. Upon Completions of procedure up to 15 minutes continue every 5 minute vital signs and the P.A.R. score; then discharge to a Phase I or Fast Track to Phase II per the following guidelines: * Discharge Patient to appropriate Phase II area if PAR is 8 or greater or return to pre- procedure baseline. The post - procedure orders will be as directed. * If PAR score is less than 8 or not return to pre-procedure baseline then patient will follow Phase I monitoring till PAR is reached for Phase II. The Phase I may be done in procedure room or may call to secure a Phase I area. * If naloxone or flumazenil are used for reversal, hold in Phase I for continued monitoring from when last reversal dose was given for a minimum of 60 minutes or longer pending the nurse and/or physician discretion of patient condition before discharge to Phase II. Please call the Sedation Physician to re-evaluate and complete post-note for discharge to Phase II area. Do NOT discharge from procedure sedation or Phase 1 until post- sedation evaluation note is complete by procedure /sedation MD Sedation Discharge Instructions to be given to the patient at discharge to home.
--- NOTE | 2020-11-12 17:22 | Post Operative Brief Note ---
Cardiology Brief Post Op Date of Surgery November 12, 2020 Pre & Post Diagnosis CAD Procedure PCI to LAD Rating Examiner Juan Rivas MD Airdrop Systems Technician James Morin Estimated Blood Loss 15 Findings See Below Severe ostial LAD disease Successful PCI with single SHELLEY (2.5 x 12 darian; post-dilated 3.0 NC). Drains Other Anesthesia Type RN Sedation Complications none Disposition Accompanied Patient To Recovery: No Disposition: PCU Overlapping Procedure I was present for: the critical portions of procedure. I was immediately available: during the entire case. Back up surgeon: was not required during procedure.
--- NOTE | 2020-11-12 21:51 | Cardiac Catheterization ---
[facility] Data: Coating And Baking Operator Cardiac Status Clinical evaluation leading to the procedure CAD Presenation: Non STEMI Anginal Classification: CCS IV Heart Failure: No Cardiogenic Shock within 24 Hours: No Cardiac Arrest within 24 Hours: No Imaging Studies Past 6 Months: Yes Stress Studies Past 6 Months: No Diagnostic Physicians Name: Juan Rivas MD Closure Device Closure Device: Radial Band Recommendations: PCI without planned CABG PCI Indication: PCI for high risk Non-GRIS Lesion Segment Name: Ostial LAD Culprit Artery: Yes Stenosis Prior to Rx (%): 100 Chronic Total Occlusion: No IVUS: No FFR: No Pre-Procedure EDMUND Flow: 0 Previously Treated Lesion: No Lesion Complexity: High/C Thrombus Present: No Bifurcation Lesion: Yes Guidewire Across Lesion: Stenosis Post-Procedure (%): 0 Post-Procedure EDMUND Flow: 3 Devices(s) Deployed: Yes Yes Intraprocedure Events Significant Disection: No Perforation: No Cardiac Cath Procedure Full Procedure Date November 12, 2020 Pre-Procedure Diagnosis Pre-Procedure Diagnosis: Non STEMI AUC Score AUC Score: 8 Post-Procedure Diagnosis Post-Procedure Diagnosis: Severe CAD and Successful PCI Procedure(s) Performed Procedure(s) Performed: Coronary Angiography and Drug Eluting Stent Environmental Health Aide Juan Rivas MD Hydraulic Tester(s) James Morin Estimated Blood Loss Estimated Blood Loss: 10 Medication(s) Medication(s): Fentanyl, Heparin, Lidocaine 1%, Nicardipine, Nitroglycerin and Versed Summary of Findings Indication: NSTEMI, refractory chest pain Access: 6 Fr right radial artery Catheters: EBU 3.5 guide Findings: For full details of patient's coronary angiography please see cath report dictated by Dr. Hunt. Briefly, patient found to have severe ostial LAD disease with atretic/diffusely diseased vein graft to distal LAD. Initial medical management but had recurrent chest pain and decision to proceed with PCI. -- PCI -- Antithrombotic therapy: Heparin, clopidogrel Procedure: Left main cannulated with cannulated with EBU 3.5 guide Pyrometer Temperature Regulator 50 wire passed across lesion into distal LAD Second commuter pilot 50 wire placed into first diagonal Prowater wire placed into circumflex Ostial LAD lesion predilated with 2.0 compliant balloon Dilated lesion stented with 2.5 x 12 mm [place] drug-eluting stent Stent post-dilated with 3.0 noncompliant balloon IC vasodilators administered for spasm Post procedure EDMUND 3 flow, stent well expanded, no significant branch vessel compromise and no other apparent cardiac complications. Arterial Closure: TR Band Summary: 1. Successful PCI of ostial LAD with a single drug-eluting stent (2.5 x 12 mm Robert; postdilated with 3.0 NC). Recommendations: To PCU for continued monitoring Loaded with clopidogrel 600 mg in Coating And Baking Operator Continue dual-antiplatelet therapy for at least 1 year Consult cardiac Rehab Hemodynamics Rest Ao:: 159/55/99 Final Ao: 152/68/111 LV: -- Recommendations Recommendations: PCI without planned CABG Specimens Specimens: None Radiation Exposure (mGy) 4381 Contrast (mls) 105 Fluids (cc crystalloids) Fluids (cc crystalloids): 100 Drains Drains: none Anesthesia moderate [id number] Procedural Complication(s) None Disposition PCU I attest to the content of the Intraoperative Record and any orders documented therein. Any exceptions are noted below. [facility] Card Cath Procedure Codes Moderate Sedation Procedure 1: Sedation/Anesthesia: 62137 Mod Sedation by the same physician;Init15 Min Child Age 5 & Up Procedure 2: Sedation/Anesthesia: 14086 Mod Sedation by the same physician; Ea [id number] Minutes Stenting Procedure 1: Cardiovascular Stent Procedures: 05853 Perc transcatheter placement of intracoronary stent(s), with ang PG Care Time/CCT Total # of Minutes Spent Total Time Spent with Patient: Total time spent is greater than 50% in coordination of care (as documented) at patient's floor/unit and/or counseling patient:
[2020-11-12] MEDS: ROSUVASTATIN CALCIUM 20 MG TAB PO SCH (21:57)
[2020-11-12] MEDS: lisinopril 40 MG TAB PO SCH (21:57)
[2020-11-13] MEDS: NITROGLYCERIN 2% OINTMENT 30GM TUBE EXT SCH ×2 (01:00→06:49)
[2020-11-13] MEDS: LEVOTHYROXINE SODIUM 125 MCG TABLET PO SCH (06:50)
[2020-11-13 07:14] LABS: INR 1.6 (0.9-1.1); Prothrombin Time 15.4 Seconds (9.0-12.0)
[2020-11-13 07:18] LABS: Hematocrit (blood only) 36.6 % (37-47); Mean Corpuscular Hemoglobin 31.5 pg (25-34); Mean Corpuscular Hgb Conc 32.8 g/dL (32-36); Mean Corpuscular Volume 96.1 fL (80-100); Mean Platelet Volume 11.4 fL (7.4-10.4); Platelet Count 195 K/uL (130-400); RDW Coefficient of Variation 12.9 % (11.5-14.5); RDW Standard Deviation 44.8 fL (36.4-46.3); Red Blood Count 3.81 M/uL (4.2-5.4)
[2020-11-13 07:22] LABS: BUN Creatinine Ratio 29.2 (10-20); Calcium 8.5 mg/dl (8.5-10.1); Creatinine Clr Calc Pharmacy 54.3 ml/min; Est GFR (African American) 63.6 ml/min; Est GFR (Non-African American) 54.9 ml/min; Magnesium 1.8 mg/dl (1.8-2.4); Potassium 4.1 mmol/L (3.5-5.1)
[2020-11-13] MEDS: INSULIN ASPART 100 UNITS/ML 3 ML PEN SC SCH ×2 (08:21→12:14)
[2020-11-13] MEDS: INSULIN GLARGINE SOLOSTAR 100 UNITS/ML 3 ML PEN SC SCH (08:48)
[2020-11-13] MEDS: MULTIVITAMIN TAB PO SCH (08:49)
[2020-11-13] MEDS: OMEGA-3 (PURIFIED FISH OIL) 1 GM CAP PO SCH (08:49)
[2020-11-13] MEDS: MONTELUKAST SODIUM 10 MG TABLET PO SCH (08:49)
[2020-11-13] MEDS: PANTOprazole 40 MG TAB PO SCH (08:49)
[2020-11-13] MEDS: METOPROLOL TARTRATE 100 MG TAB PO SCH (08:49)
[2020-11-13] MEDS: FENOFIBRATE NANOCRYSTALLIZED 48 MG TABLET PO SCH (08:50)
[2020-11-13] MEDS: CHOLECALCIFEROL 1,000 UNITS 25 MCG TAB PO SCH (08:50)
[2020-11-13] MEDS: EZETIMIBE 10 MG TABLET PO SCH (08:50)
[2020-11-13] MEDS: ASPIRIN 81 MG ECTAB PO SCH (08:50)
[2020-11-13] MEDS ORDERED: CLOPIDOGREL BISULFATE 75 MG TAB PO SCH (09:00)
--- NOTE | 2020-11-13 10:29 | Cardiology Progress Note ---
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 She feels great and has been ambulating in the hallway without difficulty. No additional chest pain. She denies shortness of breath. I had a long discussion with the patient. Due to your history of atrial fibrillation she presented on warfarin which will need to be continued. She will also have to take dual antiplatelet therapy for at least a month and then Plavix thereafter for a year. Recent literature has indicated that in this situation a NOAC in combination with Plavix and aspirin for a month followed by a NOAC and Plavix for a year are recommended. This patient however has mitral stenosis which is not severe but is valvular heart disease and therefore a NOAC will have to be given off label. She has been on warfarin for approximately 4 years with good control through our coag clinic. Therefore, I would recommend that the patient be discharged on warfarin, Plavix and aspirin. I will plan to follow-up with her next week and after a month I will discontinue her aspirin and she will remain on warfarin and Plavix from that point on. All her other medications should remain the same. I did discontinue the Nitropaste and I would send her home on isosorbide mononitrate 30 mg daily. Admission and Anticipated Discharge Date Admission Date: November 08, 2020 Subjective The patient had a successful PCI yesterday. No complaints today. Review of Systems Review of Systems: Review of Systems: See HPI for pertinent positives. All other 10 point review of systems are negative. Physical Exam Physical Exam: General: no acute distress and stated age Head: normocephalic, no masses, lesions, tenderness or abnormalities Eyes: conjunctiva are pink and non-injected, sclera clear Neck: supple, no adenopathy, no bruits, normal jugular venous pulse, no hepatojugular reflux Chest: normal shape and normal respiratory effort Lungs: Bilateral wheezing Cardiac Exam: - regular rate & rhythm, no murmurs gallops or rubs - normal S1, normal S2 Pulses: 2(+) throughout Abdomen: abdomen soft, non-tender, no abnormal masses and no hepatosplenomegaly Musculoskeletal: no gait disturbance, no joint inflammation, no deforming arthritis Extremities: Cath site looks good Neuro: grossly normal exam Results & Data ([facility]) Vital Signs (Past 12 Hours) Vital Signs Temp Pulse Pulse Resp BP Pulse Ox 11/13/20 07:05 36.6 C 68 20 159/77 H 97 11/13/20 07:00 78 11/13/20 03:11 36.5 C 72 18 170/83 H 96 11/12/20 22:56 36.8 C 74 20 166/78 H 95 Laboratory Results Laboratory Results - last 24 hr 11/12/20 11/12/20 11/12/20 12:37 16:28 17:55 WBC RBC Hgb Hct MCV MCH MCHC RDW Std Deviation RDW Coeff of Ree Plt Count MPV Absolute Nucleated RBC Nucleated RBC % (auto) Platelet Estimate PT INR Activ Coag Time Kaolin 268 H Sodium Potassium Chloride Carbon Dioxide Anion Gap BUN Creatinine Est Cr Clr Drug Dosing Est GFR ( Amer) Est GFR (Non-Af Amer) BUN/Creatinine Ratio Glucose POC Glucose 222 H 189 H Calcium Magnesium 11/12/20 11/13/20 11/13/20 21:51 06:18 06:18 WBC Cancelled RBC Cancelled Hgb Cancelled Hct Cancelled MCV Cancelled MCH Cancelled MCHC Cancelled RDW Std Deviation Cancelled RDW Coeff of Ree Cancelled Plt Count Cancelled MPV Cancelled Absolute Nucleated RBC Cancelled Nucleated RBC % (auto) Cancelled Platelet Estimate Cancelled PT 15.4 H INR 1.6 H Activ Coag Time Kaolin Sodium Potassium Chloride Carbon Dioxide Anion Gap BUN Creatinine Est Cr Clr Drug Dosing Est GFR ( Amer) Est GFR (Non-Af Amer) BUN/Creatinine Ratio Glucose POC Glucose 238 H Calcium Magnesium 11/13/20 11/13/20 11/13/20 06:18 06:18 07:42 WBC 7.50 RBC 3.81 L Hgb 12.0 Hct 36.6 L MCV 96.1 MCH 31.5 MCHC 32.8 RDW Std Deviation 44.8 RDW Coeff of Ree 12.9 Plt Count 195 MPV 11.4 H Absolute Nucleated RBC Nucleated RBC % (auto) Platelet Estimate PT INR Activ Coag Time Kaolin Sodium 137 Potassium 4.1 Chloride 105 Carbon Dioxide 29 Anion Gap 3.0 BUN 30 H Creatinine 1.02 Est Cr Clr Drug Dosing 54.3 Est GFR ( Amer) 63.6 Est GFR (Non-Af Amer) 54.9 BUN/Creatinine Ratio 29.2 H Glucose 224 H POC Glucose 220 H Calcium 8.5 Magnesium 1.8 Medications Administered Current Inpatient Medications Acetaminophen (Acetaminophen 325 Mg Tab) 650 mg PO Q4H PRN PRN Reason: Pain or Fever Stop: 12/08/20 10:18 Aspirin (Aspirin 81 Mg Ectab) [facility] [place] Stop: 12/09/20 08:59 Last Admin: 11/13/20 08:50 Dose: 81 mg Documented by: Clopidogrel Bisulfate (Clopidogrel Bisulfate 75 Mg Tab) 75 mg PO [facility] Stop: 12/13/20 08:59 Last Admin: 11/13/20 08:50 Dose: 75 mg Documented by: Dextrose (Dextrose 50% 50 Ml Syringe) 25 - 50 ml IV UD PRN; Protocol PRN Reason: Hypoglycemia Protocol Stop: 12/08/20 10:18 Ezetimibe (Ezetimibe 10 Mg Tablet) 10 mg PO DAILY [facility] Stop: 12/09/20 08:59 Last Admin: 11/13/20 08:50 Dose: 10 mg Documented by: Fenofibrate (Fenofibrate Nanocrystallized 48 Mg Tablet) 48 mg PO DAILY [facility] Stop: 12/09/20 08:59 Last Admin: 11/13/20 08:50 Dose: 48 mg Documented by: Fish Oil ([place]-3 (Purified Fish Oil) 1 Gm Cap) 4 gm [facility] [place] Stop: 12/09/20 08:59 Last Admin: 11/13/20 08:49 Dose: 4 gm Documented by: Glucagon (Glucagon For Inj 1 Mg Vial) 1 mg SQ UD PRN; Protocol PRN Reason: Hypoglycemia Protocol Stop: 12/08/20 10:18 Glucose (Glucose 10 Tabs/Tube) 4 - 8 tabs PO UD PRN; Protocol PRN Reason: Hypoglycemia Protocol Stop: 12/08/20 10:18 Glucose (Glucose 40% Gel 15 Gm Tube) 15 - 30 gm PO UD PRN; Protocol PRN Reason: Hypoglycemia Protocol Stop: 12/08/20 10:18 Insulin Aspart (Insulin Aspart 100 Units/Ml 3 Ml Pen) 0 units SC ACHS [facility] Stop: 12/08/20 11:29 Last Admin: 11/13/20 08:21 Dose: 7 units Documented by: Insulin Glargine (Insulin Glargine Solostar 100 Units/Ml 3 Ml Pen) 15 units SC BID [facility] Stop: 12/08/20 10:18 Last Admin: 11/13/20 08:48 Dose: 15 units Documented by: Isosorbide Mononitrate (Isosorbide [place] Extended Rel 30 Mg Tabcr) 30 mg PO QAM [facility] Stop: 12/13/20 10:29 Levothyroxine Sodium (Levothyroxine Sodium 125 Mcg Tablet) 125 mcg PO DAILYBB [facility] Stop: 12/09/20 06:29 Last Admin: 11/13/20 06:50 Dose: 125 mcg Documented by: Lisinopril (Lisinopril 40 Mg Tab) 40 mg PO HS [facility] Stop: 12/08/20 20:59 Last Admin: 11/12/20 21:57 Dose: 40 mg Documented by: Metoprolol Tartrate (Metoprolol Tartrate 100 Mg Tab) 100 mg PO BID [facility] Stop: 12/08/20 20:59 Last Admin: 11/13/20 08:49 Dose: 100 mg Documented by: Miscellaneous (Carbohydrates For Hypoglycemia ) 15 - 30 gm PO UD PRN PRN Reason: Hypoglycemia Protocol Stop: 12/08/20 10:18 Montelukast Sodium (Montelukast Sodium 10 Mg Tablet) 10 mg PO DAILY [facility] Stop: 12/09/20 08:59 Last Admin: 11/13/20 08:49 Dose: 10 mg Documented by: Morphine Sulfate (Morphine Sulfate 2 Mg/Ml Carp) 2 mg IV Q1H PRN PRN Reason: chest pain Stop: 11/22/20 10:51 Last Admin: 11/11/20 11:28 Dose: 2 mg Documented by: Multivitamins (Multivitamin Tab) 1 tab PO QAM [facility] Stop: 12/09/20 08:59 Last Admin: 11/13/20 08:49 Dose: 1 tab Documented by: Nitroglycerin (Nitroglycerin Sl 0.4 Mg/Tab Tab) 0.4 mg SL UD PRN PRN Reason: Chest Pain Stop: 12/08/20 10:18 Ondansetron HCl (Ondansetron Inj 2 Mg/Ml 2 Ml Vial) 4 mg IV Q6H PRN PRN Reason: Nausea Stop: 12/08/20 10:18 Pantoprazole Sodium (Pantoprazole 40 Mg Tab) 40 mg PO BID [facility] Stop: 12/11/20 11:44 Last Admin: 11/13/20 08:49 Dose: 40 mg Documented by: Polyethylene Glycol (Polyethylene (Miralax) 17 Gm Pack) 17 gm PO DAILY PRN PRN Reason: Constipation Stop: 12/08/20 10:18 Rosuvastatin Calcium (Rosuvastatin Calcium 20 Mg Tab) 40 mg PO HS [facility] Stop: 12/08/20 20:59 Last Admin: 11/12/20 21:57 Dose: 40 mg Documented by: Vitamin D (Cholecalciferol 1,000 Units 25 Mcg Tab) 2,000 units PO QAM [facility] Stop: 12/09/20 08:59 Last Admin: 11/13/20 08:50 Dose: 2,000 units Documented by: Warfarin Sodium (Warfarin Sod 5 Mg Tab) 5 mg PO DAILY@1600 [facility] Stop: 12/11/20 15:59 Last Admin: 11/11/20 16:43 Dose: 5 mg Documented by:
[2020-11-13] MEDS ORDERED: ISOSORBIDE MONO EXTENDED REL 30 MG TABCR PO SCH (10:30)
[2020-11-13] MEDS ORDERED: PHARMACY GLYCEMIC MGMT CONSULT PRN (11:18)
[2020-11-13] MEDS ORDERED: INSULIN GLARGINE SOLOSTAR 100 UNITS/ML 3 ML PEN SC ONE (12:00)
[2020-11-13] MEDS ORDERED: INSULIN HUMAN REGULAR PER UNIT 10 UNITS in SYRINGE 9.9 ML IV ONE (12:00)
[2020-11-13 13:17] VITALS: TEMP 98.1; O2SAT 99
--- NOTE | 2020-11-13 14:33 | Pharmacy Report ---
Pharmacy Glycemic Short Note 2 - Date of Service November 13, 2020 - Glycemic Short BSG Results (Last 24 hours): 11/12/20 11/12/20 11/13/20 17:55 21:51 06:18 Glucose 224 H POC Glucose 189 H 238 H 11/13/20 11/13/20 07:42 11:10 Glucose POC Glucose 220 H 355 H* OUTPATIENT ANTIDIABETIC REGIMEN: * Lantus 30 units SC daily * Humalog 30 units SC TIDM * HbA1c: 6.9% (11/08/20) ASSESSMENT: * JEANNE is a 70 year old female admitted on 11/08/20 with NSTEMI, now s/p cardiac cath * BSGs have been poorly controlled over past couple of days, pharmacy consulted for glycemic management at lunchtime today for BSG of 355 mg/dL * Of note, patient's current orders are providing significantly less insulin that outpatient regimen * Fasting BSGs have been consistently elevated while receiving 30 units of Lantu s daily, will increase Lantus today * Potassium 4.1 mmoL/L, will give one-time IV insulin bolus for acute hyperglycemia * Persistently elevated BSGs throughout the day, will tighten Novolog parameters PLAN FOR INPATIENT GLYCEMIC CONTROL: * Basal insulin * Lantus 15 units SC x 1 this morning, 25 additional units given at time of consult for 40 units total today * Bolus insulin * NovoLog per scale ACHS or Q6hrs while NPO * Goal Range: Low 110 mg/dL - High 140 mg/dL * Correction Factor: 15 mg/dL/unit * Nutritional / Prandial insulin per carb ratio of 1 unit per 5 grams CHO consumed * IV regular insulin * 10 units IV x 1 PLAN FOR DISCHARGE: * HbA1c of 6.9% suggests excellent outpatient glycemic control * Continue current outpatient regimen, patient should follow-up with [facility] endocrinology for further dose adjustments
--- NOTE | 2020-11-13 15:01 | Hospitalist Progress Note ---
Date of Service November 13, 2020 Assessment & Plan (1) NSTEMI (non-ST elevated myocardial infarction): Plan: NSTEMI S/P Successful PCI of ostial LAD with a single drug-eluting stent Appreciate cardiology input Continue aspirin, lisinopril, metoprolol, statin, plavix Restarted Isosorbide And to continue dual antiplatelet therapy for at least 1 month and then Plavix thereafter as per cardiology. Also on anticoagulation with warfarin. Needs follow up with Cardiology upon discharge (2) Hypertensive crisis: Plan: BP Stable Also on Isosorbide Continue lisinopril, metoprolol, nitroglycerin Monitor (3) Acute diastolic heart failure: Plan: Volume status improved Received IV Lasix Monitor I/Os, daily weight Diuretics PRN (4) Type 2 diabetes mellitus, with long-term current use of insulin: Plan: Diabetic Retinopathy Diabetic Nephropathy [place] [facility] Recent A1c was 6.9 Continue Insulin (5) Morbid obesity: Plan: BMI: 42 (6) Psoriasis: Plan: Not on any medications Paroxysmal atrial fibrillation Resume warfarin Received vitamin K for cardiac catheterization Monitor INR: 1.6 (7) DVT prophylaxis: Plan: coumadin Code Status Full Code Admission and Anticipated Discharge Date Admission Date: November 08, 2020 Subjective Seen and examined at bedside No recurrence of chest pain Discussed with Cardiology today Also denies any dyspnea, dizziness, nausea, abdominal pain Had successful PCI yesterday Review of Systems Review of Systems: All systems reviewed & are unremarkable except as noted in Subjective Physical Exam Physical Exam: Physical Exam: Vitals signs as noted above General Appearance:Morbidly Obese, no apparent distress Head: normocephalic, Atraumatic Eyes: normal inspection, EOMI Neck: supple, Trachea midline Respiratory/Chest: Normal breath sounds, CTA, No accessory muscle use Cardiovascular: S1, S2, No murmur Abdomen/GI:Soft, Non tender, Bowel sounds present Extremities/Musculoskeletal:normal inspection, 1-2 + B/L edema Neurologic/Psych:AAOX3, grossly no focal neurological deficits Skin: normal color, warm Results & Data Results & [facility] ([facility]) Vital Signs (Past 12 Hours) Vital Signs Temp Pulse Pulse Resp BP Pulse Ox 11/13/20 11:54 36.7 C 72 16 146/81 H 99 11/13/20 07:05 36.6 C 68 20 159/77 H 97 11/13/20 07:00 78 11/13/20 03:11 36.5 C 72 18 170/83 H 96 Laboratory Results Short CBC 11/13/20 11/13/20 Range/Units 06:18 06:18 WBC Cancelled 7.50 Hgb Cancelled 12.0 Hct Cancelled 36.6 L Plt Count Cancelled 195 BMP 11/13/20 06:18 Sodium 137 Potassium 4.1 Chloride 105 Carbon Dioxide 29 BUN 30 H Creatinine 1.02 Glucose 224 H Calcium 8.5
--- NOTE | 2020-11-13 15:10 | Discharge Summary ---
Date of Service November 13, 2020 Admission HPI Per Admitting Provider The patient is a 70-year-old obese diabetic female with a history of cardiac disease status post bypass surgery and stent placement, paroxysmal atrial fibrillation and valve disease who presents with worsening chest pain over the last 2 weeks. She reports episodes occurring approximately 5 times per day, occurring at rest mostly. She denies any known triggers for pain and they resolve with time. She denies any associated shortness of breath, lightheadedness, palpitations, diaphoresis. She denies any chest pain prior to these 2-week. She denies any medication changes. She has complications of long-term insulin-dependent diabetes which is well controlled with a hemoglobin A1c of 7.1 in May. When she arrived in the emergency room she was hypertensive and reported eating [employer] prior to arrival. However, she denies having a high salt diet and works to avoid extra salt. Blood pressure on arrival was 217/93. She received labetalol 10 mg IV, fentanyl 50 mcg IV, nitro 0.4 sublingual and Lasix 40 mg IV. Blood pressure is now 179/71. Chest pain is still a 4 out of 10. She otherwise denies any headache, fevers, chills, Covid symptoms such as cough or other respiratory symptoms, swelling or weight gain, no other GI symptoms. She is not vaccinated against Covid 19 and we reviewed her risk factors and benefits of considering the vaccination Admission Exam Per Admitting Provider Physical Exam Physical Exam: CONSTITUTIONAL: obese, vitals as above, generally well- appearing, no respiratory distress, oxygenating 95% on room air EYES: PERRL, normal conjunctivae, no scleral icterus ENT: external ear and nose normal, oropharynx clear, MMM NECK: trachea midline, no JVD RESPIRATORY: +crackles at bases, no rales or wheezes, normal respiratory effort CARDIOVASCULAR: regular rate and rhythm, S1 and 2 heard without murmurs, gallops or rubs, no JVD, 1+ peripheral edema in lower extremities bilaterally CHEST: inspection of chest was normal GASTROINTESTINAL: soft, nontender, nondistended, protuberant, no guarding MUSCULOSKELETAL: strength 5/5 throughout, ambulates independently, head is normocephalic and atraumatic SKIN: warm and dry, psoriasis plaque noted on right distal arm NEUROLOGIC: CN 2-12 grossly intact, no sensory deficit, normal cognition, normal speech, no tremor PSYCHIATRIC: alert cooperative and oriented to person, place and time. Principal Diagnosis Hypertensive urgency Non-ST segment elevation myocardial infarction Acute diastolic heart failure Discharge Data Allergies Allergy/AdvReac Type Severity Reaction Status Date / Time oxycodone Allergy Mild itchy Verified 11/08/20 07:57 Iodinated Contrast Media Allergy Unknown TEARS AND Verified 11/08/20 07:57 FACE BECAME VERY REDDENED diltiazem AdvReac Unknown Unknown Verified 11/08/20 07:57 Blood-Group Specific Allergy Unknown NO BLOOD Uncoded 11/08/20 07:57 Substance PRODUCTS Consultations 11/08/20 07:20 ED Decision to Admit Stat 11/08/20 10:19 Consult Cardiology Routine 11/12/20 17:23 Consult Cardiac Rehabilitation Routine Procedures Performed Operation Date: 11/10/20 11:00 Actual Procedures s Cineradiography w/Routine Exam - Gabriel Hunt DO p Cath, Cors with Grafts (no LV) - Gabriel Hunt DO Operation Date: 11/12/20 14:30 Actual Procedures p Drug Eluting Stent SGl Vessel - Jarocho Rivas MD s Cath, Coronaries ONLY (no LV) - Jarocho Rivas MD s Cineradiography w/Routine Exam - Jarocho Rivas MD Ordered Studies 11/10/20 09:53 CL Cath Imgs for PACS use only Routine 11/12/20 15:40 CL Cath Imgs for PACS use only Routine Hospital Course (1) NSTEMI (non-ST elevated myocardial infarction): NSTEMI S/P Successful PCI of ostial LAD with a single drug-eluting stent Appreciate cardiology input Continue aspirin, lisinopril, metoprolol, statin, plavix Restarted Isosorbide And to continue dual antiplatelet therapy for at least 1 month and then Plavix thereafter as per cardiology. Also on anticoagulation with warfarin. Needs follow up with Cardiology upon discharge (2) Hypertensive crisis: BP Stable Also on Isosorbide Continue lisinopril, metoprolol, nitroglycerin Monitor (3) Acute diastolic heart failure: Volume status improved Received IV Lasix Monitor I/Os, daily weight Diuretics PRN (4) Type 2 diabetes mellitus, with long-term current use of insulin: Diabetic Retinopathy Diabetic Nephropathy Follows with Endocrinology at [facility] Recent A1c was 6.9 Continue Insulin (5) Morbid obesity: BMI: 42 (6) Psoriasis: Not on any medications Paroxysmal atrial fibrillation Resume warfarin Received vitamin K for cardiac catheterization Monitor INR: 1.6 (7) DVT prophylaxis: coumadin Code Status Full Code Total Time Total Time Spent Total Time Spent (In Minutes): 43 minutes Discharge Plan Discharge Items Patient Disposition: Home - Self-Care Reason For Visit: HYPERTENSIVE URGENCY/ CHEST PAIN Discharge Diagnosis: Hypertensive urgency Non-ST segment elevation myocardial infarction Acute diastolic heart failure Activity: Per Instructions section Exercise/Sports: Wait until after follow-up appointment Non-emergency contact: Primary Care Provider and Nursing Assistants Teacher Call non-emergency contact if: you have any medication questions, your symptoms worsen, your pain is concerning for you and you have a fever Follow-up/Referrals: Gabriel Hunt DO [Nursing Assistants Teacher] - 11/18/20 10:00 am (Date & Time 11/18/2020 10:00 AM Provider Gabriel Hunt DO Department Cardiology, [facility] ) Jessica Daugherty MD [Primary Care Provider] - 11/17/20 10:20 am (Date & Time 11/17/2020 10:20 AM Provider Jessica Pompa MD Department General Internal Medicine [facility] ) Diet: Carb Consistent or DM2 and Heart Healthy Addtl Attending Provider Instructions: Follow-up with your primary care physician Dr. Pompa and your forester aide Dr. Hunt as scheduled. Follow-up with Coumadin clinic for adjustment of your Coumadin dosing and monitoring your PT/INR. Discussed with your primary care physician for further adjustment of your insulin therapy as needed. Seek immediate medical attention if your symptoms reoccur or worsen Please take all medications as instructed on discharge list below. Please call if you have any questions or problems. You can reach a [facility] hospitalist on duty at [facility] 24 hours a day by calling [phone] Home Care: * Take your medications exactly as directed. Don't skip doses. * Remember that recovery after a heart attack takes time. Plan to rest for at lease 4-8 weeks while you recover. Then return to normal activity when your doctor says it's okay. * Ask your doctor about joining a heart rehabilitation program. * Tell your doctor if you are feeling depressed. Feelings of sadness are common after a heart attack, but it is important that you speak to someone if you are feeling overwhelmed by these feelings. * If you are having chest pain, call 911 for an ambulance. Do NOT drive yourself to the hospital. * Ask your family members to learn CPR. * Learn to take your own blood pressure and pulse. Keep a record of your results. Ask your doctor when you should seek emergency medical attention. He or she will tell you which blood pressure reading is dangerous. Lifestyle Changes: * Maintain a healthy weight. Get help to lose any extra pounds. * Cut back on salt. * Limit canned, dried, packaged, and fast foods. * Don't add salt to your food. * Season foods with herbs instead of salt when you cook. * Break the smoking habit. Enroll in a stop-smoking program to improve your chances of success. * Limit fatty foods. * Ask your doctor about having your lipid levels checked regularly. * Build up your activity according to your doctor's recommendation. * Ask your doctor when it's okay to resume sexual activity. * Tell your doctor about any erectile dysfunction (ED) medication you are taking. Some ED medications are not safe if you take certain heart medications. * Try to manage stress. Follow Up: It is important for you to keep your follow up appointments with your medical provider. Pending Studies at Discharge: No Stand-Alone Forms: My [facility], Smoking Cessation Medications and DC Order Prescriptions: New clopidogrel 75 mg Tablet 75 mg PO QAM Qty: 30 RF: 1 isosorbide mononitrate 30 mg Tablet Extended Release 24 Hr 30 mg PO QAM Qty: 30 RF: 1 pantoprazole 40 mg Tablet,Delayed Release (Dr/Ec) 40 mg PO DAILY Qty: 7 RF: 0 Continued insulin lispro [Humalog KwikPen Insulin] 100 unit/mL insulin pen See Rx Instructions SQ TID Qty: 90 RF: 3 Lantus Solostar U-100 Insulin 100 unit/mL (3 mL) insulin pen See Rx Instructions SQ DAILY Qty: 30 RF: 3 levothyroxine 125 mcg tablet 125 mcg PO QAM Qty: 90 RF: 1 ezetimibe 10 mg tablet 10 mg PO DAILY RF: 0 acetaminophen [Tylenol Arthritis Pain] 650 mg tablet extended release 650 mg PO ONCE PRN (Reason: Pain) RF: 0 fenofibrate 54 mg tablet 54 mg PO DAILY RF: 0 omega-3 fatty acids-fish oil 684-1,200 mg capsule,delayed release(DR/EC) 4 cap PO QAM RF: 0 multivitamin Tablet 1 tab PO QAM RF: 0 metoprolol tartrate [Lopressor] 100 mg Tablet 100 mg PO BID RF: 0 aspirin 81 mg Tablet,Delayed Release (Dr/Ec) 81 mg PO QAM RF: 0 cholecalciferol (vitamin D3) [Vitamin D3] 2,000 unit Capsule 2,000 unit PO QAM RF: 0 warfarin 5 mg tablet 5 mg PO HS RF: 0 lisinopril 40 mg tablet 40 mg PO HS RF: 0 montelukast [Singulair] 10 mg tablet 10 mg PO DAILY RF: 0 rosuvastatin 40 mg tablet 40 mg PO HS RF: 0 Discontinued isosorbide mononitrate 60 mg Tablet Extended Release 24 Hr 60 mg PO QAM RF: 0 Discharge Orders: Discharge Order (Routine); Ordered 11/13/20 Ordered By: Meliton Will/Other Patient Handouts: A1C, Managing Type 2 Diabetes, Cardiac Catheterization Dc Admission Data Admit Date/Time: 11/08/20 08:13 Attending Provider: Meliton Morales Admit Provider: Odalys Nair Primary Care Provider: Jessica Daugherty Other Providers: Odalys Nair ; Gabriel Hunt Other Interventions: Discharge Summary Assessment (RN) Last Done: 11/13/20 15:42
[2020-11-13 15:46] VITALS: BP 131/75; PULSE 82
== END 2020-11-13 16:14 | disposition home or self-care (01) | DRG 246 ==
LOC: ED 05:48 → 2S 08:13 → SUATTDRO 08:13 → 2S 09:56
PROC: CLB.CCG (2020-11-10 11:00)
PROC: CLB.CCO (2020-11-12 14:30)
DX: Z88.5 Allergy status to narcotic agent; E78.5 Hyperlipidemia, unspecified; I16.0 Hypertensive urgency; E11.319 Type 2 diabetes mellitus with unspecified diabetic retinopathy without macular edema; E66.01 Morbid (severe) obesity due to excess calories; Z95.5 Presence of coronary angioplasty implant and graft; L40.9 Psoriasis, unspecified; I48.20 Chronic atrial fibrillation, unspecified; I50.31 Acute diastolic (congestive) heart failure; I25.710 Atherosclerosis of autologous vein coronary artery bypass graft(s) with unstable angina pectoris; Z91.041 Radiographic dye allergy status; I25.119 Atherosclerotic heart disease of native coronary artery with unspecified angina pectoris; Z86.73 Personal history of transient ischemic attack (TIA), and cerebral infarction without residual deficits; I21.4 Non-ST elevation (NSTEMI) myocardial infarction; Z68.41 Body mass index [BMI] 40.0-44.9, adult; E03.9 Hypothyroidism, unspecified; E11.22 Type 2 diabetes mellitus with diabetic chronic kidney disease; Z79.4 Long term (current) use of insulin; N18.30 Chronic kidney disease, stage 3 unspecified; Z95.1 Presence of aortocoronary bypass graft; I13.0 Hypertensive heart and chronic kidney disease with heart failure and stage 1 through stage 4 chronic kidney disease, or unspecified chronic kidney disease; Z79.02 Long term (current) use of antithrombotics/antiplatelets; Z83.3 Family history of diabetes mellitus; Z79.82 Long term (current) use of aspirin; I48.0 Paroxysmal atrial fibrillation; Z77.22 Contact with and (suspected) exposure to environmental tobacco smoke (acute) (chronic)

== ENCOUNTER 2021-01-01 17:43 | Inpatient (IN) ==
[2021-01-01 19:57] LABS: Basophils # (auto) 0.03 K/uL (0-0.2); Basophils % (auto) 0.4 %; Eosinophils # (auto) 0.13 K/uL (0-0.5); Eosinophils % (auto) 1.8 %; Hematocrit (blood only) 40.4 % (37-47); Hemoglobin 13.4 g/dL (12.0-16.0); Immature Granulocytes # (auto) 0.01 K/uL (0.00-0.02); Immature Granulocytes % (auto) 0.1 %; Lymphocytes # (auto) 2.06 K/uL (1.2-3.4); Lymphocytes % (auto) 27.8 %; Mean Corpuscular Hemoglobin 31.9 pg (25-34); Mean Corpuscular Hgb Conc 33.2 g/dL (32-36); Mean Corpuscular Volume 96.2 fL (80-100); Mean Platelet Volume 11.2 fL (7.4-10.4); Monocytes # (auto) 0.89 K/uL (0.11-0.59); Neutrophils # (auto) 4.28 K/uL (1.4-6.5); Neutrophils % (auto) 57.9 %; Platelet Count 223 K/uL (130-400); RDW Coefficient of Variation 13.3 % (11.5-14.5); RDW Standard Deviation 46.1 fL (36.4-46.3)
[2021-01-01 20:11] LABS: INR 2.5 (0.9-1.1); Partial Thromboplastin Ratio 1.5; Partial Thromboplastin Time 39.8 Seconds (21.0-31.0); Prothrombin Time 23.2 Seconds (9.0-12.0)
--- NOTE | 2021-01-01 20:12 | XRay Report ---
XR chest 1V portable CLINICAL HISTORY: Chest Pain. COMPARISON STUDY: 11/11/2020 TECHNIQUE: 1 view of the chest FINDINGS: Single frontal view of the chest demonstrates the cardiomediastinal silhouette to be within normal li mits. The patient is status post previous cardiothoracic surgery. The lungs are clear of alveolar opa cities. There is no evidence for pleural effusion. There is no evidence for vascular congestion. Ther e is no acute osseous pathology. IMPRESSION: No acute cardiopulmonary disease. ACT 112: Negative or not required by law. Electronically signed by: Tejinder Wood M.D. 01/01/2021 8:10 PM
[2021-01-01 20:41] LABS: Albumin Globulin Ratio 0.7 (0.9-2); Albumin Level 2.9 gm/dl (3.4-5.0); BUN Creatinine Ratio 21.8 (10-20); Bilirubin,Total 0.4 mg/dl (0.2-1); Creatinine Clr Calc Pharmacy 44.5 ml/min; Est GFR (African American) 52.3 ml/min; Est GFR (Non-African American) 45.1 ml/min; Potassium 4.6 mmol/L (3.5-5.1); Total Protein 6.9 gm/dl (6.4-8.2); Troponin I 0.066 ng/ml (0-0.045)
--- NOTE | 2021-01-01 21:27 | Emergency Department Note ---
Impression & Plan Atrial fibrillation with rapid ventricular response, Elevated troponin ED Provider Note NAME: TOAN ALCANTARA AGE: 70 SEX: F : 1950 ARRIVES VIA: Walk-In INFORMANT: Patient, ED PROVIDER(S): Santiago Gordillo MD Chief Complaint: Palpitations, concern for A. fib HPI: Patient does present due to concern for A. fib which he states suddenly began around 11 PM that awoke her from sleep at that time. The patient does have a known history of A. fib and is followed with Dr. Galdamez. The patient is compliant with her medications and no recent changes. The patient thought that she may be little dehydrated and drink more water today. The patient feels "it says if my heart sounds are out of my chest." The patient denies any chest pains or shortness of breath. Patient is not vaccinated for Covid. Patient d enies any alcohol or tobacco use. Patient denies any supplements stimulants or caffeine. The patient did have a recent stent placed 6 weeks prior and does have a known history of CABG. The patient is currently on Plavix and Coumadin. Patient also does have a history of hypothyroidism. Patient states that her symptoms have been constant. The patient is symptomatic with regards to feeling the symptoms but does not feel lightheaded dizzy short of breath or have any chest pain. Per review of the part chart the patient did have hypertensive crisis, diastolic heart failure and had an LAD occlusion status post stenting with Dr. Rivas. ROS: See HPI for pertinent positives and negatives. A total of 10 systems were reviewed and otherwise negative. Past medical history: See below Surgical history: See below Social history: See below Physical Exam: GENERAL: NAD, wearing a mask, non-toxic. EYE EXAM: Normal conjunctiva. PERRL, no anisocoria and EOM's grossly intact w/o pain. NECK: Supple, no nuchal rigidity, no adenopathy, non-tender. No signs of meningismus. LUNGS: Clear to auscultation. Normal chest wall mechanics. HEART: Regular irregular and tachycardic, no MRG. ABDOMEN: Abdomen soft, non-tender, normo-active bowel sounds, no masses, no rebound or guarding. BACK: No CVA TTP. SKIN: No rashes and no bruising. UPPER EXTREMITIES: Upper extremities are grossly normal. LOWER EXTREMITIES: Grossly normal, no edema. NEURO EXAM: A&O x3, cranial nerves II-XII grossly intact, normal speech, moves all 4 extremities on command w/o issue. Differential diagnoses: Premature contractions, electrolyte abnormality, cardiac dysrhythmia, thyroid dysfunction, pulmonary embolism, infection, gastrointestinal, as well as other pathologies. Course: Patient was seen and evaluated the bedside. Full history physical exam was performed. EKG interpreted by me A. fib, rate of 107, normal QRS, left axis deviation. Patient's A. fib is replaced sinus from comparison EKG November 11, 2020. Imaging Studies: See Below Cardiac monitoring: An order was placed for continuous cardiac monitoring. The monitor shows a rate of 106 with irregularly irregular tachycardic rhythm. MDM: Patient was seen due to concern for palpitations and A. fib. The patient is in A. fib. The patient was ordered Lopressor. The patient is anticoagulated on Coumadin. Patient has normal white count H&H and platelet count. The patient's kidney function does show potential mild prerenal azotemia. Magnesium slightly low 1.7. Troponin is detectable 0.06 but the patient did have a recent stent placed. Patient has no chest pain or shortness of breath at this time. Covid negative. Chest x-ray clear. Given the patient's A. fib do believe the patient would benefit from inpatient treatment and monitoring to ensure adequate weight control especially in light of the patient's recent stent. Patient is a nticoagulated with an INR of 2.5. I did speak with the on-call hospitalist Dr. Caballero and the patient was admitted to the medicine service. Past Med/Surg History Medical History Allergy desensitization therapy Atrial fibrillation controlled with medication Bronchitis hx CHF (congestive heart failure) Chronic kidney disease, stage III (moderate) Dr Patten Colon polyp Diabetes mellitus, type 2 IDDM Hyperlipidemia Hypertension Hypertriglyceridemia Hypothyroidism Myocardial Infarction September 2004 On anticoagulant therapy On home oxygen therapy 2lpm via n/c at HS Osteoarthritis Pyelonephritis Retinopathy Sleep apnea oxygen only at HS Transient ischemic attack (TIA) ~10 years ago Tubular adenoma of colon Vertigo hx Surgical History H/O colonoscopy History of appendectomy History of cardiac cath 2004 History of cataract surgery left History of section History of heart artery stent x2 stents (2004) [facility] [place] Hx of CABG x1 vessel (2004) [facility] [place] Family History Father Diabetes Social History Smoking Status: Never smoker Second Hand Exposure: No; Hx Alcohol Use: No Hx Substance Use: No Preferred Language: Zambian Communication Ability: Effective Equip Tech Required: No Beliefs That Will Affect Care: Spiritual marital status: / Current Living Situation: Alone How many Children do You have: 3 Feels Safe at Home: Yes Assistive Devices: None Allergies Allergies Allergy/AdvReac Type Severity Reaction Status Date / Time Iodinated Contrast Media Allergy Intermediate TEARS AND Verified 01/01/21 22:58 FACE BECAME VERY REDDENED oxycodone Allergy Mild itchy Verified 01/01/21 22:58 diltiazem AdvReac Unknown Unknown Verified 01/01/21 22:58 Blood-Group Specific Allergy Unknown NO BLOOD Uncoded 01/01/21 22:58 Substance PRODUCTS Home Meds Home Medications Medication Instructions Recorded Confirmed cholecalciferol (vitamin D3) 50 2,000 unit PO QAM 02/07/18 01/01/21 mcg (2,000 unit) capsule (Vitamin D3) metoprolol tartrate 100 mg tablet 100 mg PO BID 02/07/18 01/01/21 (Lopressor) multivitamin 1 tab PO QAM 02/07/18 01/01/21 rosuvastatin 40 mg tablet 40 mg PO HS 08/09/18 01/01/21 lisinopril 40 mg tablet 40 mg PO HS tab 09/19/18 01/01/21 omega-3 fatty acids-fish oil 684 4 cap PO QAM cap 09/19/18 01/01/21 mg-1,200 mg capsule,delayed release warfarin 5 mg tablet 5 mg PO HS 09/19/18 01/01/21 ezetimibe 10 mg tablet 10 mg PO DAILY 04/05/19 01/01/21 montelukast 10 mg tablet 10 mg PO DAILY tab 04/05/19 01/01/21 (Singulair) acetaminophen 650 mg 650 mg PO ONCE PRN tab 10/15/20 11/11/21 tablet,extended release (Tylenol Arthritis Pain) fenofibrate 54 mg tablet 54 mg PO DAILY 04/24/20 01/01/21 insulin glargine 100 unit/mL (3 30 unit SQ HS 01/01/21 01/01/21 mL) subcutaneous pen (Lantus Solostar U-100 Insulin) Previous Rx's Medication Instructions Recorded Humalog KwikPen Insulin 100 See Rx Instructions SQ TID #90 ml 06/23/20 unit/mL subcutaneous (insulin NS lispro) levothyroxine 125 mcg tablet 125 mcg PO QAM #90 tab 09/22/20 clopidogrel 75 mg tablet 75 mg PO QAM #30 tab 11/13/20 isosorbide mononitrate 30 mg 30 mg PO QAM #30 tab 11/13/20 tablet,extended release 24 hr Results & Data (ED) Vital Signs Vital Signs - 24 hr 01/01/21 18:35 01/01/21 21:18 01/01/21 21:19 Temperature 37 C Temperature Source Temporal Artery Scan Pulse Rate 115 H 118 H Pulse Rate [Apical] Pulse Rate from SpO2 Sensor 113 H Respiratory Rate 18 19 Respiratory Effort / Characteristics Non-Labored Respiratory Depth Normal Respiratory Pattern Blood Pressure 134/91 Blood Pressure [Right Arm] Blood Pressure Mean 105 Blood Pressure Mean [Right Arm] Blood Pressure Position [Right Arm] Pulse Oximetry 98 97 98 Oxygen Delivery Method Room Air Room Air Sepsis Recent Fever Within 48 Hours No Sepsis New/Unexplained Change in Mental Status No Sepsis Action Taken by Nursing No Action Required 01/01/21 21:28 01/01/21 21:30 01/01/21 22:00 Temperature Temperature Source Pulse Rate 108 H 105 H Pulse Rate [Apical] 105 H Pulse Rate from SpO2 Sensor 99 H 89 Respiratory Rate 16 18 17 Respiratory Effort / Characteristics Non-Labored Spontaneous Respiratory Depth Normal Respiratory Pattern Regular Blood Pressure Blood Pressure [Right Arm] 190/95 H Blood Pressure Mean Blood Pressure Mean [Right Arm] 126 Blood Pressure Position [Right Arm] Semi-fowlers Pulse Oximetry 98 96 96 Oxygen Delivery Method Room Air Sepsis Recent Fever Within 48 Hours Sepsis New/Unexplained Change in Mental Status Sepsis Action Taken by Nursing 01/01/21 22:11 01/01/21 22:30 01/01/21 22:31 Temperature Temperature Source Pulse Rate 112 H 103 H Pulse Rate [Apical] 99 H Pulse Rate from SpO2 Sensor 111 H Respiratory Rate 30 H 18 Respiratory Effort / Characteristics Non-Labored Spontaneous Respiratory Depth Normal Respiratory Pattern Regular Blood Pressure 182/111 H 179/115 H Blood Pressure [Right Arm] 187/98 H Blood Pressure Mean 136 Blood Pressure Mean [Right Arm] 127 Blood Pressure Position [Right Arm] Sitting Pulse Oximetry 96 96 Oxygen Delivery Method Room Air Sepsis Recent Fever Within 48 Hours Sepsis New/Unexplained Change in Mental Status Sepsis Action Taken by Nursing 01/01/21 23:00 01/01/21 23:23 01/01/21 23:30 Temperature Temperature Source Pulse Rate 111 H 104 H 108 H Pulse Rate [Apical] Pulse Rate from SpO2 Sensor Respiratory Rate 16 16 Respiratory Effort / Characteristics Respiratory Depth Respiratory Pattern Blood Pressure 179/115 H Blood Pressure [Right Arm] Blood Pressure Mean Blood Pressure Mean [Right Arm] Blood Pressure Position [Right Arm] Pulse Oximetry Oxygen Delivery Method Sepsis Recent Fever Within 48 Hours Sepsis New/Unexplained Change in Mental Status Sepsis Action Taken by Nursing 01/02/21 00:00 Temperature Temperature Source Pulse Rate 111 H Pulse Rate [Apical] Pulse Rate from SpO2 Sensor Respiratory Rate 22 Respiratory Effort / Characteristics Respiratory Depth Respiratory Pattern Blood Pressure 152/83 H Blood Pressure [Right Arm] Blood Pressure Mean 106 Blood Pressure Mean [Right Arm] Blood Pressure Position [Right Arm] Pulse Oximetry Oxygen Delivery Method Sepsis Recent Fever Within 48 Hours Sepsis New/Unexplained Change in Mental Status Sepsis Action Taken by [facility] Medications Current Medication List: was personally reviewed by me Laboratory Data Attestation: I reviewed the patient's lab results. Result diagrams: 01/01/21 19:24 01/01/21 19:24 Lab Results 01/01/21 01/01/21 01/01/21 Range/Units 19:24 19:24 19:24 WBC 7.40 (4.8-10.8) K/uL RBC 4.20 (4.2-5.4) M/uL Hgb 13.4 (12.0-16.0) g/dL Hct 40.4 (37-47) % MCV 96.2 (80-100) fL MCH 31.9 (25-34) pg MCHC 33.2 (32-36) g/dL RDW Std Deviation 46.1 (36.4-46.3) fL RDW Coeff of Ree 13.3 (11.5-14.5) % Plt Count 223 (130-400) K/uL MPV 11.2 H (7.4-10.4) fL Immature Gran % (Auto) 0.1 % Neut % (Auto) 57.9 % Lymph % (Auto) 27.8 % [place] % (Auto) 12.0 % Eos % (Auto) 1.8 % Baso % (Auto) 0.4 % Neut # (Auto) 4.28 (1.4-6.5) K/uL Lymph # (Auto) 2.06 (1.2-3.4) K/uL [place] # (Auto) 0.89 H (0.11-0.59) K/uL Eos # (Auto) 0.13 (0-0.5) K/uL Baso # (Auto) 0.03 (0-0.2) K/uL Immature Gran # (Auto) 0.01 (0.00-0.02) K/uL PT 23.2 H (9.0-12.0) Seconds INR 2.5 H (0.9-1.1) APTT 39.8 H (21.0-31.0) Seconds PTT Ratio 1.5 Sodium 137 (136-145) mmol/L Potassium 4.6 (3.5-5.1) mmol/L Chloride 103 (98-107) mmol/L Carbon Dioxide 27 (21-32) mmol/L Anion Gap 7.0 (3-11) BUN 26 H (7-18) mg/dl Creatinine 1.20 (0.6-1.2) mg/dl Est Cr Clr Drug Dosing 44.5 ml/min Est GFR ( Amer) 52.3 ml/min Est GFR (Non-Af Amer) 45.1 ml/min BUN/Creatinine Ratio 21.8 H (10-20) Glucose 158 H (70-99) mg/dl Calcium 9.0 (8.5-10.1) mg/dl Phosphorus (2.5-4.9) mg/dl Magnesium (1.8-2.4) mg/dl Total Bilirubin 0.4 (0.2-1) mg/dl AST 49 H (15-37) U/L ALT 37 (12-78) U/L Alkaline Phosphatase 72 (45-117) U/L Troponin I 0.066 H* (0-0.045) ng/ml Total Protein 6.9 (6.4-8.2) gm/dl Albumin 2.9 L (3.4-5.0) gm/dl Globulin 4.0 (2.5-4.0) gm/dl Albumin/Globulin Ratio 0.7 L (0.9-2) Specimen Hemolysis COVID-19 Eval Order SARS-CoV-2 (PCR) (Negative) 01/01/21 01/01/21 01/01/21 Range/Units 19:24 23:23 23:23 WBC (4.8-10.8) K/uL RBC (4.2-5.4) M/uL Hgb (12.0-16.0) g/dL Hct (37-47) % MCV (80-100) fL MCH (25-34) pg MCHC (32-36) g/dL RDW Std Deviation (36.4-46.3) fL RDW Coeff of Ree (11.5-14.5) % Plt Count (130-400) K/uL MPV (7.4-10.4) fL Immature Gran % (Auto) % Neut % (Auto) % Lymph % (Auto) % [place] % (Auto) % Eos % (Auto) % Baso % (Auto) % Neut # (Auto) (1.4-6.5) K/uL Lymph # (Auto) (1.2-3.4) K/uL [place] # (Auto) (0.11-0.59) K/uL Eos # (Auto) (0-0.5) K/uL Baso # (Auto) (0-0.2) K/uL Immature Gran # (Auto) (0.00-0.02) K/uL PT (9.0-12.0) Seconds INR (0.9-1.1) APTT (21.0-31.0) Seconds PTT Ratio Sodium (136-145) mmol/L Potassium (3.5-5.1) mmol/L Chloride (98-107) mmol/L Carbon Dioxide (21-32) mmol/L Anion Gap (3-11) BUN (7-18) mg/dl Creatinine (0.6-1.2) mg/dl Est Cr Clr Drug Dosing ml/min Est GFR ( Amer) ml/min Est GFR (Non-Af Amer) ml/min BUN/Creatinine Ratio (10-20) Glucose (70-99) mg/dl Calcium (8.5-10.1) mg/dl Phosphorus 3.3 (2.5-4.9) mg/dl Magnesium 1.7 L (1.8-2.4) mg/dl Total Bilirubin (0.2-1) mg/dl AST (15-37) U/L ALT (12-78) U/L Alkaline Phosphatase (45-117) U/L Troponin I (0-0.045) ng/ml Total Protein (6.4-8.2) gm/dl Albumin (3.4-5.0) gm/dl Globulin (2.5-4.0) gm/dl Albumin/Globulin Ratio (0.9-2) Specimen Hemolysis COVID-19 Eval Order Covid19 at [facility] SARS-CoV-2 (PCR) NEGATIVE (Negative) Administered Medications Metoprolol Tartrate (Metoprolol Tartrate 1 Mg/Ml Vial) 5 mg IV Q5M PRN PRN Reason: Tachycardia Stop: 01/31/21 21:35 Last Admin: 01/01/21 23:23 Dose: 5 mg Documented by: [id number] Discontinued Medications Metoprolol Tartrate (Metoprolol Tartrate 1 Mg/Ml Vial) 5 mg IV NOW STA Stop: 01/01/21 21:37 Last Admin: 01/01/21 22:11 Dose: 5 mg Documented by: [id number] Imaging Data Radiologist's Impression: Chest X-Ray 01/01/21 18:39 XR chest 1V portable CLINICAL HISTORY: Chest Pain. COMPARISON STUDY: 11/11/2020 TECHNIQUE: 1 view of the chest FINDINGS: Single frontal view of the chest demonstrates the cardiomediastinal silhouette to be within normal limits. The patient is status post previous cardiothoracic surgery. The lungs are clear of alveolar opacities. There is no evidence for pleural effusion. There is no evidence for vascular congestion. There is no acute osseous pathology. IMPRESSION: No acute cardiopulmonary disease. ACT 112: Negative or not required by law. Electronically signed by: Tejinder Wood M.D. 01/01/2021 8:10 PM Discharge Plan Visit Data Chief Complaint: Cardiac Assessment Stated Complaint: HIGH HR, REFERRED BY DR PRATHER Provider: Santiago Gordillo Discharge Problem: Atrial fibrillation with rapid ventricular response, Elevated troponin Forms Stand Alone Forms: My [facility] Prescriptions Prescriptions: No Action insulin lispro [Humalog KwikPen Insulin] 100 unit/mL insulin pen See Rx Instructions SQ TID Qty: 90 RF: 3 levothyroxine 125 mcg tablet 125 mcg PO QAM Qty: 90 RF: 1 ezetimibe 10 mg tablet 10 mg PO DAILY RF: 0 acetaminophen [Tylenol Arthritis Pain] 650 mg tablet extended release 650 mg PO ONCE PRN (Reason: Pain) RF: 0 fenofibrate 54 mg tablet 54 mg PO DAILY RF: 0 omega-3 fatty acids-fish oil 684-1,200 mg capsule,delayed release(DR/EC) 4 cap PO QAM RF: 0 multivitamin Tablet 1 tab PO QAM RF: 0 metoprolol tartrate [Lopressor] 100 mg Tablet 100 mg PO BID RF: 0 cholecalciferol (vitamin D3) [Vitamin D3] 2,000 unit Capsule 2,000 unit PO QAM RF: 0 warfarin 5 mg tablet 5 mg PO HS RF: 0 lisinopril 40 mg tablet 40 mg PO HS RF: 0 montelukast [Singulair] 10 mg tablet 10 mg PO DAILY RF: 0 rosuvastatin 40 mg tablet 40 mg PO HS RF: 0 clopidogrel 75 mg Tablet 75 mg PO QAM Qty: 30 RF: 1 isosorbide mononitrate 30 mg Tablet Extended Release 24 Hr 30 mg PO QAM Qty: 30 RF: 1 Lantus Solostar U-100 Insulin 100 unit/mL (3 mL) insulin pen 30 unit SQ HS RF: 0 Referrals Referrals: Jessica Daugherty MD [Primary Care Provider] -
[2021-01-01] MEDS ORDERED: METOPROLOL TARTRATE 1 MG/ML VIAL IV PRN (21:36)
[2021-01-01] MEDS ORDERED: METOPROLOL TARTRATE 1 MG/ML VIAL IV STA (21:36)
[2021-01-01 22:09] LABS: Magnesium 1.7 mg/dl (1.8-2.4); Phosphorus 3.3 mg/dl (2.5-4.9)
--- NOTE | 2021-01-02 01:57 | History and Physical Report ---
DATE OF ADMISSION: 01/02/2021. CHIEF COMPLAINT: Palpitation. HISTORY OF PRESENT ILLNESS: This is a 70-year-old female with past medical history significant for type 2 diabetes, chronic kidney disease stage III, diabetic retinopathy, hypothyroidism, hyperlipidemia, obstructive sleep apnea, history of CAD, paroxysmal atrial fibrillation, hypertension, mitral stenosis, morbid obesity, history of calculus of gallbladder, generalized osteoarthritis, psoriasis, presents with palpitations. The patient states from the morning, she was feeling of heart racing. Denies any chest pain, no dizziness, no blurred visions, no shortness of breath, and otherwise doing okay. Daughter called advised her to call family doctor and was advised to come to the ER. Currently, resting comfortably and hemodynamically stable. She received a dose of IV Lopressor in the ER. EKG shows rapid AFib. Denies any headache, no nausea, no abdominal pain, normal bowel and bladder movements. No swelling in the legs. ALLERGIES: IODINATED CONTRAST MEDIA, OXYCODONE, DILTIAZEM. PAST MEDICAL HISTORY: As mentioned above. PAST SURGICAL HISTORY: , CABG, oral surgery, appendectomy, status post cardiac stent. MEDICATIONS: The patient is on Tylenol 650 mg p.o. p.r.n., vitamin D 2000 units p.o. a.m., Plavix 75 mg p.o. a.m., ezetimibe 10 mg p.o. daily, fenofibrate 54 mg p.o. daily, Humalog 30 units with each meal, isosorbide mononitrate 30 mg p.o. a.m., Lantus 30 units subQ at bedtime, levothyroxine 125 mcg p.o. daily, lisinopril 40 mg p.o. at bedtime, metoprolol tartrate 100 mg p.o. b.i.d., montelukast 10 mg p.o. daily, multivitamin one tablet p.o. daily, omega-3 fatty acids 4 capsules p.o. a.m., rosuvastatin, Crestor 40 mg p.o. at bedtime, warfarin 5 mg p.o. at bedtime. FAMILY HISTORY: Significant for brother has AAA and heart disorder. SOCIAL HISTORY: , currently living alone. No smoking, alcohol, no drug use. REVIEW OF SYSTEMS: As per HPI. Rest of review of systems is negative. PHYSICAL EXAMINATION: GENERAL: The patient is morbidly obese, not in acute distress. VITAL SIGNS: Temperature 37, pulse 111, respiratory rate 12, blood pressure 152/80, oxygen 96% on room air. HEENT: Pupils equal, round and reactive to light. Oral mucosa moist. NECK: No JVD, no neck masses. CARDIOVASCULAR: S1 and S2 heard. Regular rhythm, tachycardia. No murmur. RESPIRATORY SYSTEM: Normal AP diameter. No accessory muscle use. No wheezing, no crackles. ABDOMEN: Soft, bowel sounds present, nontender, nondistended. CENTRAL NERVOUS SYSTEM: Cranial nerves II-XII grossly intact, nonfocal. EXTREMITIES: Mild pedal edema present, no erythema seen. LABORATORY DATA: WBC 7.4, hemoglobin 13.4, hematocrit 40.4, platelets 223. PT 23.2, INR 12.5, APTT 39.8. Sodium 137, potassium 4.6, chloride 103, bicarbonate 27, BUN 26, creatinine 1.2, serum glucose 158, calcium 9, phosphorus 3.3, magnesium 1.7, total bilirubin 0.4, AST 14, ALT 37, alkaline phosphatase 102. Troponin-I 0.06. SARS-CoV-2 PCR negative. IMAGING DATA: Chest x-ray, no acute findings. EKG: Atrial fibrillation with rapid ventricular response at a rate of 107, incomplete right bundle-branch block, left anterior fascicular block. ASSESSMENT AND PLAN: This is a 70-year-old female who presents with rapid atrial fibrillation. 1. Rapid atrial fibrillation, asymptomatic. Patient received IV Lopressor in the ER. We will continue home Lopressor. INR therapeutic. Continue Coumadin. Placed on IV Lopressor p.r.n. Monitor in the tele floor. Consult Cardiology in the a.m. 2. Mild elevation of troponin, could be demand ischemia. N.p.o. follow serial enzymes. Follow echocardiogram. Await Cardiology input. 3. Mild hypomagnesia, we will replace. 4. History of coronary artery disease, status post coronary artery bypass grafting, status post cardiac stent, . Status post successful percutaneous coronary intervention of ostial left anterior descending on 11/12/2020. Continue her Plavix, beta norberto and statin. 5. Diabetes. Continue home Lantus and insulin sliding scale. Follow HbA1c levels. If n.p.o. tomorrow also, we need to cut back on the Lantus dose which she gets in the night. 6. Morbid obesity: Needs counseling. 7. Chronic kidney disease stage III, baseline creatinine 1.1-1.2. Currently creatinine of 1.2. We will follow the labs. 8. Sleep apnea seems to be on oxygen in the nighttime. 9. History of mitral stenosis, needs followup. 10. Deep venous thrombosis prophylaxis: On Coumadin. INR therapeutic. DISPOSITION: Admit to tele floor. PT/OT prior to discharge. Social service to help with discharge planning. Level 1 full code. Job ID: [id number] [id number]
[2021-01-02] MEDS ORDERED: MAGNESIUM SULFATE / D5W 1 GM/100 ML BAG IV ONE (04:49)
[2021-01-02] MEDS ORDERED: POLYETHYLENE (MIRALAX) 17 GM PACK PO PRN (04:49)
[2021-01-02] MEDS ORDERED: ACETAMINOPHEN 325 MG TAB PO PRN (04:49)
[2021-01-02] MEDS ORDERED: SODIUM CHLORIDE 0.9% 1000ML 1,000 ML IV SCH (04:49)
[2021-01-02] MEDS ORDERED: METOPROLOL TARTRATE 1 MG/ML VIAL IV PRN ×2 (04:49→20:47)
[2021-01-02] MEDS ORDERED: NITROGLYCERIN SL 0.4 MG/TAB TAB SL PRN (04:49)
[2021-01-02] MEDS ORDERED: METOPROLOL TARTRATE 1 MG/ML VIAL IV ONE (04:54)
[2021-01-02] MEDS ORDERED: GLUCOSE 10 TABS/TUBE PO PRN (05:15)
[2021-01-02] MEDS ORDERED: DEXTROSE 50% 50 ML SYRINGE IV PRN (05:15)
[2021-01-02] MEDS ORDERED: GLUCOSE 40% GEL 15 GM TUBE PO PRN (05:15)
[2021-01-02] MEDS ORDERED: GLUCAGON FOR INJ 1 MG VIAL IM PRN (05:15)
[2021-01-02 06:27] LABS: BUN Creatinine Ratio 27.9 (10-20); Calcium 9.4 mg/dl (8.5-10.1); Creatinine Clr Calc Pharmacy 57.4 ml/min; Est GFR (African American) 71.2 ml/min; Est GFR (Non-African American) 61.4 ml/min; Troponin I 0.049 ng/ml (0-0.045)
[2021-01-02 06:41] LABS: Hematocrit (blood only) 41.5 % (37-47); Hemoglobin 13.8 g/dL (12.0-16.0); Mean Corpuscular Hgb Conc 33.3 g/dL (32-36); Mean Corpuscular Volume 96.3 fL (80-100); Mean Platelet Volume 11.5 fL (7.4-10.4); Platelet Count 202 K/uL (130-400); RDW Coefficient of Variation 13.3 % (11.5-14.5); RDW Standard Deviation 46.9 fL (36.4-46.3); Red Blood Count 4.31 M/uL (4.2-5.4); White Blood Count 7.13 K/uL (4.8-10.8)
[2021-01-02 06:42] LABS: Basophils # (auto) 0.02 K/uL (0-0.2); Basophils % (auto) 0.3 %; Eosinophils # (auto) 0.21 K/uL (0-0.5); Eosinophils % (auto) 2.9 %; Immature Granulocytes # (auto) 0.01 K/uL (0.00-0.02); Immature Granulocytes % (auto) 0.1 %; Lymphocytes # (auto) 2.21 K/uL (1.2-3.4); Monocytes # (auto) 0.81 K/uL (0.11-0.59); Monocytes % (auto) 11.4 %; Neutrophils # (auto) 3.87 K/uL (1.4-6.5); Neutrophils % (auto) 54.3 %
[2021-01-02 07:48] LABS: Potassium 4.2 mmol/L (3.5-5.1)
[2021-01-02 07:49] LABS: Magnesium 1.6 mg/dl (1.8-2.4)
[2021-01-02] MEDS: EZETIMIBE 10 MG TABLET PO SCH ×3 (08:39→20:25)
[2021-01-02] MEDS: CLOPIDOGREL BISULFATE 75 MG TAB PO SCH (08:39)
[2021-01-02] MEDS: CHOLECALCIFEROL 1,000 UNITS 25 MCG TAB PO SCH (08:39)
[2021-01-02] MEDS: MONTELUKAST SODIUM 10 MG TABLET PO SCH (08:39)
[2021-01-02] MEDS: LEVOTHYROXINE SODIUM 125 MCG TABLET PO SCH (08:39)
[2021-01-02] MEDS: MULTIVITAMIN TAB PO SCH (08:39)
[2021-01-02 08:48] LABS: Estimated Average Glucose 146 mg/dl; Hemoglobin A1C 6.7 % (4.5-5.6)
[2021-01-02] MEDS ORDERED: INSULIN GLARGINE SOLOSTAR 100 UNITS/ML 3 ML PEN SQ SCH (09:00)
[2021-01-02] MEDS ORDERED: METOPROLOL TARTRATE 100 MG TAB PO SCH (09:00)
[2021-01-02] MEDS ORDERED: ISOSORBIDE MONO EXTENDED REL 30 MG TABCR PO SCH (09:00)
[2021-01-02] MEDS ORDERED: LEVOTHYROXINE SODIUM 125 MCG TABLET PO SCH (09:00)
--- NOTE | 2021-01-02 09:47 | Cardiology Consultation ---
Date of Consultation January 02, 2021 Assessment & Plan (1) Atrial fibrillation with rapid ventricular response: (2) Hypertensive urgency: (3) Elevated troponin: 70-year-old female with paroxysmal atrial fibrillation rapid ventricular response in the setting of uncontrolled hypertension. Recommend addition of sotalol 80 mg twice daily. Reduce metoprolol tartrate to 50 mg twice daily. With elevated blood pressure, may consider transition to carvedilol pending clinical course. Sotalol will be loaded over the next 3 days. If she fails to convert to sinus rhythm, a cardioversion will be performed on Tuesday. Continue oral anticoagulation with warfarin. Add topical nitrates to improve blood pressure control in the short-term. Continue telemetry monitoring during hospitalization. Daily ECG ordered. History of Present Illness Reason for Consultation: Paroxysmal atrial fibrillation Requesting Physician: Dr. Caballero Attending Physician: Mildred Lloyd MD History of Present Illness 70-year-old female presented to the emergency department with palpitations. S tates her heart has been racing and pounding since Tuesday. Attempted to "wait it out", however, symptoms persisted. In the ER ECG demonstrates atrial fibrillation with rapid ventricular response. Carries a history of paroxysmal atrial fibrillation chronically anticoagulated with warfarin. Recent history significant for NSTEMI status post drug-eluting stent implantation to the ostial LAD. Denies chest pain or shortness of breath. No orthopnea, PND, or lower extremity edema. Denies signs/symptoms of GI/ blood loss. Outpatient records reviewed. Subtherapeutic INR recorded 12/03/2020, otherwise INR has been therapeutic. Allergies Allergy/AdvReac Type Severity Reaction Status Date / Time Iodinated Contrast Media Allergy Intermediate TEARS AND Verified 01/01/21 22:58 FACE BECAME VERY REDDENED oxycodone Allergy Mild itchy Verified 01/01/21 22:58 diltiazem AdvReac Unknown Unknown Verified 01/01/21 22:58 Blood-Group Specific Allergy Unknown NO BLOOD Uncoded 01/01/21 22:58 Substance PRODUCTS Home Medications Medication Instructions Recorded Confirmed Type cholecalciferol (vitamin D3) 50 2,000 unit PO QAM 02/07/18 01/01/21 History mcg (2,000 unit) capsule (Vitamin D3) metoprolol tartrate 100 mg tablet 100 mg PO BID 02/07/18 01/01/21 History (Lopressor) multivitamin 1 tab PO QAM 02/07/18 01/01/21 History rosuvastatin 40 mg tablet 40 mg PO HS 08/09/18 01/01/21 History lisinopril 40 mg tablet 40 mg PO HS tab 09/19/18 01/01/21 History omega-3 fatty acids-fish oil 684 4 cap PO QAM cap 09/19/18 01/01/21 History mg-1,200 mg capsule,delayed release warfarin 5 mg tablet 5 mg PO HS 09/19/18 01/01/21 History ezetimibe 10 mg tablet 10 mg PO DAILY 04/05/19 01/01/21 History montelukast 10 mg tablet 10 mg PO DAILY tab 04/05/19 01/01/21 History (Singulair) acetaminophen 650 mg 650 mg PO ONCE PRN tab 12/06/19 01/01/21 History tablet,extended release (Tylenol Arthritis Pain) fenofibrate 54 mg tablet 54 mg PO DAILY 04/24/20 01/01/21 History Humalog KwikPen Insulin 100 See Rx Instructions SQ TID #90 ml 06/23/20 01/01/21 Rx unit/mL subcutaneous (insulin NS lispro) levothyroxine 125 mcg tablet 125 mcg PO QAM #90 tab 09/22/20 01/01/21 Rx clopidogrel 75 mg tablet 75 mg PO QAM #30 tab 11/13/20 01/01/21 Rx isosorbide mononitrate 30 mg 30 mg PO QAM #30 tab 11/13/20 01/01/21 Rx tablet,extended release 24 hr insulin glargine 100 unit/mL (3 30 unit SQ HS 01/01/21 01/01/21 History mL) subcutaneous pen (Lantus Solostar U-100 Insulin) Patient History Medical History Allergy desensitization therapy Atrial fibrillation controlled with medication Bronchitis hx CHF (congestive heart failure) Chronic kidney disease, stage III (moderate) Dr Patten Colon polyp Diabetes mellitus, type 2 IDDM Hyperlipidemia Hypertension Hypertriglyceridemia Hypothyroidism Myocardial Infarction September 2004 On anticoagulant therapy On home oxygen therapy 2lpm via n/c at HS Osteoarthritis Pyelonephritis Retinopathy Sleep apnea oxygen only at HS Transient ischemic attack (TIA) ~10 years ago Tubular adenoma of colon Vertigo hx Surgical History H/O colonoscopy History of appendectomy History of cardiac cath 2004 History of cataract surgery left History of section History of heart artery stent x2 stents (2004) ANAJihan Eduardo Hx of CABG x1 vessel (2004) ANAJihan Gulston Family History Father Diabetes Social History Smoking Status: Never smoker Second Hand Exposure: No; Hx Alcohol Use: No Hx Substance Use: No Preferred Language: Bulgarian Communication Ability: Effective Steel Heater Required: No Beliefs That Will Affect Care: None and Nondenominational Nondenominational Beliefs: jehovah witness marital status: / Current Living Situation: Alone How many Children do You have: 3 Other Information That Helps Us Care for You: No Feels Safe at Home: Yes Safety Concerns: Feels Safe At This Time Assistive Devices: None Review of Systems Review of Systems: All systems reviewed & are unremarkable except as noted in Subjective Physical Exam Constitutional: well developed, well nourished and + obese Respiratory: Auscultation: lungs clear to auscultation bilaterally; no crackles, no rales, no rhonchi and no wheezes Cardiovascular: Rate/Rhythm: + irregularly irregular Heart Sounds: normal S1 and normal S2; no murmur Vessels: radial pulses present; no JVD and no carotid bruit Extremities: no edema Gastrointestinal (Abdomen): Inspection/Auscultation: abdomen normal to inspection and normal bowel sounds; abdomen not distended Percussion/Palpation: abdomen soft; abdomen nontender, no guarding and abdomen not rigid Neurologic: CN's II-XI intact bilaterally and moves all extremities; no focal motor deficits Motor/Sensory: no tremor Psychiatric: A+Ox3, euthymic affect Results & Data ([facility]) Vital Signs (Past 12 Hours) Vital Signs Temp Pulse Pulse Resp BP BP Pulse Ox 01/02/21 06:00 100 H 177/92 H 01/02/21 05:07 36.8 C 128 H 20 193/151 H 97 01/02/21 03:00 120 H 19 148/70 H 94 01/02/21 02:30 110 H 19 96 11/12/21 02:00 108 H 13 97 01/02/21 01:30 109 H 17 158/90 H 96 01/02/21 01:00 111 H 18 93 01/02/21 00:30 92 H 22 93 01/02/21 00:00 111 H 22 152/83 H 01/01/21 23:30 108 H 16 01/01/21 23:23 104 H 179/115 H 01/01/21 23:00 111 H 16 01/01/21 22:31 99 H 18 187/98 H 96 01/01/21 22:30 103 H 30 H 179/115 H 96 01/01/21 22:11 112 H 182/111 H 01/01/21 22:00 105 H 17 96
[2021-01-02] MEDS: SOTALOL HCL 80 MG TAB PO SCH ×2 (11:22→20:25)
[2021-01-02] MEDS: NITROGLYCERIN 2% OINTMENT 30GM TUBE EXT SCH ×3 (11:25→21:21)
[2021-01-02] MEDS: INSULIN ASPART 100 UNITS/ML 3 ML PEN SC SCH ×2 (12:29→20:40)
[2021-01-02] MEDS ORDERED: Nursing to Pharmacy Communication SCH (12:45)
[2021-01-02] MEDS ORDERED: PHARMACY GLYCEMIC MGMT CONSULT PRN (13:19)
--- NOTE | 2021-01-02 13:39 | Electrocardiogram Report ---
Test Reason : Blood Pressure : / mmHG Vent. Rate : 107 BPM Atrial Rate : 117 BPM P-R Int : 000 ms QRS Dur : 112 ms QT Int : 332 ms P-R-T Axes : 000 -64 046 degrees QTc Int : 443 ms Atrial fibrillation with rapid ventricular response Incomplete right bundle branch block Left anterior fascicular block Abnormal ECG When compared with ECG of 11-NOV-2020 10:04, Atrial fibrillation has replaced Sinus rhythm Confirmed by Boom Smith ([id number]) on 01/02/2021 1:38:53 PM Referred By: Ceasar Galdamez Confirmed By:Boom Smith
[2021-01-02] MEDS ORDERED: INSULIN GLARGINE SOLOSTAR 100 UNITS/ML 3 ML PEN SQ ONE (15:30)
[2021-01-02] MEDS: WARFARIN SOD 5 MG TAB PO SCH (16:01)
[2021-01-02] MEDS ORDERED: INSULIN ASPART 100 UNITS/ML 3 ML PEN SC SCH (16:30)
--- NOTE | 2021-01-02 17:07 | Communication Note ---
Date of Service: January 02, 2021 Follow-up for atrial fibrillation RVR, etc. Seen resting in bed, sitting up, not in distress, in good spirits States she feels better since admission No palpitations, chest pain, shortness of breath, dizziness, headache General- oriented x 3, not in distress, speaks in sentences with no effort or accessory muscle use Eyes- anicteric Neck- no JVD Lungs- clear breath sounds bilaterally, no rales/wheezes Heart- normal rate, regular rhythm; no murmurs Abdomen- normal bowel sounds, nondistended, soft, nontender Extremities- no pretibial edema, no calf tenderness Neuro- alert, oriented x 3; no gross focal neurologic deficits Skin- warm & dry Assessment and plan Atrial fibrillation RVR Sotalol 80 mg twice a day Reduce usual metoprolol tartrate from 100, to 50 mg twice a day Continue Coumadin Diabetes type 2 Patient experience of Lantus in the evening, and 30 minutes of NovoLog with each meal 3 times a day Discussed with pharmacy glycemic control Monitor BSG's plan of care discussed with patient in detail and at length all questions answered he is understanding, agreeable, comfortable with the plan of care Miguel Trevino MD
--- NOTE | 2021-01-02 19:16 | Pharmacy Report ---
Pharmacy Glycemic Short Note 2 - Date of Service January 02, 2021 - Glycemic Short BSG Results (Last 24 hours): 01/01/21 01/02/21 01/02/21 19:24 05:12 07:27 Glucose 158 H 158 H POC Glucose 188 H 01/02/21 01/02/21 01/02/21 12:04 14:08 16:34 Glucose POC Glucose 194 H 270 H 160 H OUTPATIENT ANTIDIABETIC REGIMEN: * Lantus 30 units SC daily * Humalog 30 units SC TIDM * HbA1c: 6.7% (01/02/21) ASSESSMENT: * BC is a 70 year old female admitted for afib with RVR * BSGs since admission are elevated at 188, 194, and 270 mg/dL * Hospitalist contacted pharmacist regarding consult, patient requested to be given Humalog 30 units TID with meals to correlate with outpatient regimen, as she had elevated BSGs during prior admission * 30 units ordered tonight with dinner per provider/patient preference - hypoglycemia noted at HS (68 mg/dL) * A set dose of bolus insulin will likely be inappropriate given discrepancies between inpatient/outpatient diet in many patients * May be beneficial to achieve more of a 50/50 basal/bolus split PLAN FOR INPATIENT GLYCEMIC CONTROL: * Basal insulin * Lantus 30 units SC x 1 * Bolus insulin * ---Novolog 30 units SC x 1 with dinner, then at HS: * NovoLog per scale ACHS or Q6hrs while NPO * Goal Range: Low 110 mg/dL - High 140 mg/dL * Correction Factor: 15 mg/dL/unit * Nutritional / Prandial insulin per carb ratio of 1 unit per 5 grams CHO consumed PLAN FOR DISCHARGE: * HbA1c of 6.7% suggests excellent outpatient glycemic control * Reasonable to continue outpatient regimen as long as patient is not experiencing hypoglycemia as an outpatient
[2021-01-02] MEDS: CARBOHYDRATES FOR HYPOGLYCEMIA PO PRN ×2 (20:13→23:41)
[2021-01-02] MEDS: lisinopril 40 MG TAB PO SCH (20:25)
[2021-01-02] MEDS: ROSUVASTATIN CALCIUM 20 MG TAB PO SCH (20:55)
[2021-01-02] MEDS ORDERED: METOPROLOL TARTRATE 50 MG TAB PO STA (23:52)
[2021-01-03] MEDS: NITROGLYCERIN 2% OINTMENT 30GM TUBE EXT SCH ×2 (04:08→09:43)
[2021-01-03] MEDS: LEVOTHYROXINE SODIUM 125 MCG TABLET PO SCH (06:30)
[2021-01-03 07:15] LABS: Prothrombin Time 18.8 Seconds (9.0-12.0)
[2021-01-03] MEDS: MULTIVITAMIN TAB PO SCH (08:07)
[2021-01-03] MEDS: CHOLECALCIFEROL 1,000 UNITS 25 MCG TAB PO SCH (08:07)
[2021-01-03] MEDS: MONTELUKAST SODIUM 10 MG TABLET PO SCH (08:07)
[2021-01-03] MEDS: SOTALOL HCL 80 MG TAB PO SCH ×2 (08:07→20:52)
[2021-01-03] MEDS: CLOPIDOGREL BISULFATE 75 MG TAB PO SCH (08:07)
[2021-01-03] MEDS: INSULIN GLARGINE SOLOSTAR 100 UNITS/ML 3 ML PEN SQ SCH (08:07)
[2021-01-03] MEDS: INSULIN ASPART 100 UNITS/ML 3 ML PEN SC SCH ×4 (08:08→20:49)
[2021-01-03] MEDS ORDERED: METOPROLOL TARTRATE 50 MG TAB PO SCH (09:00)
--- NOTE | 2021-01-03 11:34 | Cardiology Progress Note ---
Date of Service January 03, 2021 Assessment & Plan (1) Atrial fibrillation with rapid ventricular response: (2) Hypertensive urgency: (3) Elevated troponin: Plan: 70-year-old female with paroxysmal atrial fibrillation rapid ventricular response in the setting of uncontrolled hypertension. Patient currently asymptomatic and has reverted to sinus rhythm after sotalol dosing. QT corrected is mildly prolonged. We will repeat EKG at 1800 Tentative plans to reduce sotalol to 40 mg twice daily Metoprolol currently on hold but may need restart We will discontinue topical nitrates and resume isosorbide mononitrate at 60 mg/day for further hypertension control We will reassess at the end of the day may need p.m. dose of amlodipine Admission and Anticipated Discharge Date Admission Date: January 02, 2021 Subjective Patient seen and examined, chart, medications, telemetry reviewed. Patient converted to sinus rhythm yesterday after dose of sotalol. No cardiac complaints overnight. No chest pains dizziness or lightheadedness. No tachyarrhythmias. Remains in sinus rhythm. EKG today does demonstrate mild QT prolongation. Blood pressures are trending high No bleeding difficulties with patient on anticoagulation Review of Systems Review of Systems: All systems reviewed & are unremarkable except as noted in Subjective Physical Exam Constitutional: well developed, well nourished and + obese Respiratory: Auscultation: lungs clear to auscultation bilaterally; no crackles, no rales, no rhonchi and no wheezes Cardiovascular: Rate/Rhythm: + irregularly irregular Heart Sounds: normal S1 and normal S2; no murmur Vessels: radial pulses present; no JVD and no carotid bruit Extremities: no edema Gastrointestinal (Abdomen): Inspection/Auscultation: abdomen normal to inspection and normal bowel sounds; abdomen not distended Percussion/Palpation: abdomen soft; abdomen nontender, no guarding and abdomen not rigid Neurologic: CN's II-XI intact bilaterally and moves all extremities; no focal motor deficits Motor/Sensory: no tremor Psychiatric: A+Ox3, euthymic affect Results & Data ([facility]) Vital Signs (Past 12 Hours) Vital Signs Temp Pulse Resp BP Pulse Ox 01/03/21 08:39 36.9 C 59 L 18 153/73 H 97 01/03/21 03:54 36.6 C 67 16 129/63 99 01/02/21 23:39 193/90 H Laboratory Results Laboratory Results - last 24 hr 01/02/21 01/02/21 01/02/21 10:59 12:04 14:08 PT INR POC Glucose 194 H 270 H Troponin I 0.048 H* 01/02/21 01/02/21 01/02/21 16:34 17:13 20:07 PT INR POC Glucose 160 H 68 L* Troponin I 0.049 H* 01/02/21 01/02/21 01/03/21 20:33 23:36 06:43 PT 18.8 H INR 2.0 H POC Glucose 83 78 Troponin I 01/03/21 07:27 PT INR POC Glucose 152 H Troponin I ECG Additional Comments: 03-JAN-2021 04:22:19 [facility] ROUTINE RETRIEVAL Normal sinus rhythm Left axis deviation Right bundle branch block Abnormal ECG When compared with ECG of 01-JAN-2021 19:16, Sinus rhythm has replaced Atrial fibrillation Vent. rate has decreased BY 41 BPM Non-specific change in ST segment in Lateral leads QT has lengthened, QTc 503
[2021-01-03] MEDS: ISOSORBIDE MONO EXTENDED REL 60 MG TABCR PO SCH (12:27)
[2021-01-03] MEDS: WARFARIN SOD 5 MG TAB PO SCH (16:50)
--- NOTE | 2021-01-03 18:46 | Hospitalist Progress Note ---
Date of Service January 03, 2021 Assessment & Plan (1) Atrial fibrillation with rapid ventricular response: Plan: ASSESSMENT AND PLAN: This is a 70-year-old female who presents with rapid atrial fibrillation. 1. Rapid atrial fibrillation, asymptomatic. --Started on sotalol, reduced to 40 mg for prolonged QT Metoprolol on hold secondary to borderline bradycardia Continue Coumadin 2. Mild elevation of troponin, likely secondary to demand ischemia from #1 3. Mild hypomagnesia, replaced 4. History of coronary artery disease, status post coronary artery bypass grafting, status post cardiac stent, . Status post successful percutaneous coronary intervention of ostial left anterior descending on 11/12/2020. --Continue Plavix, beta norberto and statin. 5. Diabetes. Continue home Lantus and insulin sliding scale. --A1c 6.7 6. Morbid obesity: Needs counseling. 7. Chronic kidney disease stage III, baseline creatinine 1.1-1.2. Stable 8. Sleep apnea seems to be on oxygen in the nighttime. 9. History of mitral stenosis, needs followup. 10. Deep venous thrombosis prophylaxis: On Coumadin. INR therapeutic. DISPOSITION: Pending Anticipate discharge to home medically stable Admission and Anticipated Discharge Date Admission Date: January 02, 2021 Subjective Follow-up for atrial fibrillation RVR, hypertension, etc. Seen resting bedside chair, comfortable, not in distress, good spirits States she feels fine compared to yesterday No chest pain, palpitations, shortness of breath, dizziness No abdominal pain, fevers or chills, nausea vomiting No other symptoms Review of Systems Review of Systems: all noted and negative except for above Physical Exam Physical Exam: General- oriented x 3, not in distress, speaks in sentences with no effort or accessory muscle use Eyes- anicteric Neck- no JVD Lungs- clear breath sounds bilaterally, no crackles or wheezing noted Heart- normal rate, regular rhythm; no murmurs Abdomen- normal bowel sounds, nondistended, soft, nontender Extremities- no pretibial edema, no calf tenderness Neuro- alert, oriented x 3; no gross focal neurologic deficits Skin- warm & dry Results & Data Results & Data ([facility]) Vital Signs (Past 12 Hours) Vital Signs Temp Pulse Pulse Pulse Resp BP Pulse Ox 01/03/21 18:38 56 L 01/03/21 16:12 36.7 C 65 18 173/89 H 98 01/03/21 11:30 36.7 C 57 L 18 178/78 H 97 01/03/21 08:39 36.9 C 59 L 18 153/73 H 97 01/03/21 08:00 65 all noted and reviewed including below
[2021-01-03] MEDS: lisinopril 40 MG TAB PO SCH (19:00)
[2021-01-03] MEDS: EZETIMIBE 10 MG TABLET PO SCH (20:52)
[2021-01-03] MEDS: ROSUVASTATIN CALCIUM 20 MG TAB PO SCH (20:52)
[2021-01-03] MEDS ORDERED: HYDROCORTISONE ACETATE 25 MG SUPP PR PRN (21:01)
[2021-01-04] MEDS: LEVOTHYROXINE SODIUM 125 MCG TABLET PO SCH (06:17)
--- NOTE | 2021-01-04 07:09 | Electrocardiogram Report ---
Test Reason : Blood Pressure : / mmHG Vent. Rate : 066 BPM Atrial Rate : 066 BPM P-R Int : 146 ms QRS Dur : 120 ms QT Int : 490 ms P-R-T Axes : 069 -45 000 degrees QTc Int : 513 ms Normal sinus rhythm Left axis deviation Right bundle branch block Nonspecific ST abnormality Abnormal ECG When compared with ECG of 01-JAN-2021 19:16, Sinus rhythm has replaced Atrial fibrillation Vent. rate has decreased BY 41 BPM QT has lengthened Confirmed by Eligio Calderon ([id number]) on 01/04/2021 7:08:53 AM Referred By: Ceasar Galdamez Confirmed By:Eligio Calderon
[2021-01-04 07:31] LABS: INR 1.8 (0.9-1.1); Prothrombin Time 17.7 Seconds (9.0-12.0)
[2021-01-04] MEDS: CLOPIDOGREL BISULFATE 75 MG TAB PO SCH (07:49)
[2021-01-04] MEDS: MULTIVITAMIN TAB PO SCH (07:50)
[2021-01-04] MEDS: CHOLECALCIFEROL 1,000 UNITS 25 MCG TAB PO SCH (07:50)
[2021-01-04] MEDS: ISOSORBIDE MONO EXTENDED REL 60 MG TABCR PO SCH (07:50)
[2021-01-04] MEDS: MONTELUKAST SODIUM 10 MG TABLET PO SCH (07:50)
[2021-01-04] MEDS: SOTALOL HCL 80 MG TAB PO SCH ×2 (07:51→20:05)
[2021-01-04] MEDS: INSULIN ASPART 100 UNITS/ML 3 ML PEN SC SCH ×4 (07:58→21:32)
[2021-01-04] MEDS: INSULIN GLARGINE SOLOSTAR 100 UNITS/ML 3 ML PEN SQ SCH (08:00)
[2021-01-04 08:59] LABS: BUN Creatinine Ratio 37.2 (10-20); Calcium 8.5 mg/dl (8.5-10.1); Creatinine Clr Calc Pharmacy 52.6 ml/min; Est GFR (African American) 63.6 ml/min; Est GFR (Non-African American) 54.9 ml/min; Potassium 4.6 mmol/L (3.5-5.1)
--- NOTE | 2021-01-04 10:46 | Pharmacy Report ---
Pharmacy Glycemic Short Note 2 - Date of Service January 04, 2021 - Glycemic Short BSG Results (Last 24 hours): 01/03/21 01/03/21 01/03/21 11:40 15:20 16:44 Glucose POC Glucose 159 H 73 80 01/03/21 01/04/21 01/04/21 20:14 06:33 07:35 Glucose 135 H POC Glucose 115 H 167 H OUTPATIENT ANTIDIABETIC REGIMEN: * Lantus 30 units SC daily * Humalog 30 units SC TIDM * HbA1c: 6.7% (01/02/21) ASSESSMENT: 01/04 * Pt has received 76 units of insulin over the past 24hrs * 30 units of basal with Lantus * 46 units of bolus with NovoLog * BSGs 152-159-73/80-115-167 mg/dl * All BSGs in goal range with current orders. Pre-dinner BSG slightly below goal range for inpatient targets after receiving 13 units of NovoLog with lunch. Will loosen CR slightly. 01/02 * BC is a 70 year old female admitted for afib with RVR * BSGs since admission are elevated at 188, 194, and 270 mg/dL * Hospitalist contacted pharmacist regarding consult, patient requested to be given Humalog 30 units TID with meals to correlate with outpatient regimen, as she had elevated BSGs during prior admission * 30 units ordered tonight with dinner per provider/patient preference - hypoglycemia noted at HS (68 mg/dL) * A set dose of bolus insulin will likely be inappropriate given discrepancies between inpatient/outpatient diet in many patients * May be beneficial to achieve more of a 50/50 basal/bolus split PLAN FOR INPATIENT GLYCEMIC CONTROL: * Basal insulin * Lantus 30 units SC daily * Bolus insulin * NovoLog per scale ACHS or Q6hrs while NPO * Goal Range: Low 110 mg/dL - High 140 mg/dL * Correction Factor: 15 mg/dL/unit * Nutritional / Prandial insulin per carb ratio of 1 unit per 4 grams CHO consumed PLAN FOR DISCHARGE: * HbA1c of 6.7% suggests excellent outpatient glycemic control * Reasonable to continue outpatient regimen as long as patient is not experiencing hypoglycemia as an outpatient
--- NOTE | 2021-01-04 13:21 | Cardiology Progress Note ---
Date of Service January 04, 2021 Assessment & Plan (1) Atrial fibrillation with rapid ventricular response: (2) Hypertensive urgency: (3) Elevated troponin: Plan: 70-year-old female with paroxysmal atrial fibrillation rapid ventricular response in the setting of uncontrolled hypertension. Patient currently asymptomatic and has reverted to sinus rhythm after sotalol dosing. QT corrected is mildly prolonged. We will continue current dosing of sotalol and all other medications. EKG in a.m. with anticipated discharge if no complications Admission and Anticipated Discharge Date Admission Date: January 02, 2021 Subjective Patient was seen and examined, chart, medications, telemetry reviewed. No further arrhythmias overnight. Tolerating medication well. EKG reveals reduced QT corrected this morning. No bleeding difficulties no chest pain or discomfort. Blood pressure trending towards better control. Review of Systems Review of Systems: All systems reviewed & are unremarkable except as noted in Subjective Physical Exam Constitutional: well developed, well nourished and + obese; no acute distress Eyes: PERRL, conjunctivae normal, anicteric sclerae Respiratory: Auscultation: lungs clear to auscultation bilaterally; no crackles, no rales, no rhonchi and no wheezes Cardiovascular: Rate/Rhythm: + irregularly irregular Heart Sounds: normal S1 and normal S2; no murmur Vessels: radial pulses present; no JVD and no carotid bruit Extremities: no edema Gastrointestinal (Abdomen): Inspection/Auscultation: abdomen normal to inspection and normal bowel sounds; abdomen not distended Percussion/Palpation: abdomen soft; abdomen nontender, no guarding and abdomen not rigid Neurologic: CN's II-XI intact bilaterally and moves all extremities; no focal motor deficits Motor/Sensory: no tremor Psychiatric: A+Ox3, euthymic affect Results & Data ([facility]) Vital Signs (Past 12 Hours) Vital Signs Temp Pulse Pulse Resp BP Pulse Ox 01/04/21 12:00 36.8 C 66 16 162/76 H 99 01/04/21 08:00 36.5 C 64 65 14 136/63 97 01/04/21 03:39 36.6 C 70 18 133/66 99 Laboratory Results Laboratory Results - last 24 hr 01/03/21 01/03/21 01/03/21 15:20 16:44 20:14 PT INR Sodium Potassium Chloride Carbon Dioxide Anion Gap BUN Creatinine Est Cr Clr Drug Dosing Est GFR ( Amer) Est GFR (Non-Af Amer) BUN/Creatinine Ratio Glucose POC Glucose 73 80 115 H Calcium 01/04/21 01/04/21 01/04/21 06:33 06:34 07:35 PT 17.7 H INR 1.8 H Sodium 139 Potassium 4.6 Chloride 105 Carbon Dioxide 26 Anion Gap 9.0 BUN 38 H Creatinine 1.02 Est Cr Clr Drug Dosing 52.6 Est GFR ( Amer) 63.6 Est GFR (Non-Af Amer) 54.9 BUN/Creatinine Ratio 37.2 H Glucose 135 H POC Glucose 167 H Calcium 8.5 01/04/21 11:31 PT INR Sodium Potassium Chloride Carbon Dioxide Anion Gap BUN Creatinine Est Cr Clr Drug Dosing Est GFR ( Amer) Est GFR (Non-Af Amer) BUN/Creatinine Ratio Glucose POC Glucose 221 H Calcium Medications Administered Current Medications Acetaminophen (Acetaminophen 325 Mg Tab) 650 mg PO Q4H PRN PRN Reason: Pain or Fever Stop: 02/01/21 04:48 Clopidogrel Bisulfate (Clopidogrel Bisulfate 75 Mg Tab) [facility] [place]: 02/01/21 08:59 Last Admin: 01/04/21 07:49 Dose: 75 mg Documented by: Dextrose (Dextrose 50% 50 Ml Syringe) 25 - 50 ml IV UD PRN; Protocol PRN Reason: Hypoglycemia Protocol Stop: 02/01/21 05:14 Ezetimibe (Ezetimibe 10 Mg Tablet) 10 mg PO HS [facility] Stop: 02/01/21 20:59 Last Admin: 01/03/21 20:52 Dose: 10 mg Documented by: Glucagon (Glucagon For Inj 1 Mg Vial) 1 mg IM UD PRN; Protocol PRN Reason: Hypoglycemia Protocol Stop: 02/01/21 05:14 Glucose (Glucose 40% Gel 15 Gm Tube) 15 - 30 gm PO UD PRN; Protocol PRN Reason: Hypoglycemia Protocol Stop: 02/01/21 05:14 Glucose (Glucose 10 Tabs/Tube) 4 - 8 tabs PO UD PRN; Protocol PRN Reason: Hypoglycemia Protocol Stop: 02/01/21 05:14 Hydrocortisone (Hydrocortisone Acetate 25 Mg Supp) 25 mg [place] DAILY PRN PRN Reason: Hemorrhoids Stop: 01/09/21 21:00 Last Admin: 01/03/21 22:15 Dose: 25 mg Documented by: Insulin Aspart (Insulin Aspart 100 Units/Ml 3 Ml Pen) 0 units SC ACHS [facility] Stop: 02/01/21 11:29 Last Admin: 01/04/21 12:15 Dose: 23 units Documented by: Insulin Glargine (Insulin Glargine Solostar 100 Units/Ml 3 Ml Pen) 30 units SQ DAILY [facility] Stop: 02/02/21 08:59 Last Admin: 01/04/21 08:00 Dose: 30 units Documented by: Isosorbide Mononitrate (Isosorbide [place] Extended Rel 60 Mg Tabcr) 60 mg PO QAM [facility] Stop: 02/02/21 11:44 Last Admin: 01/04/21 07:50 Dose: 60 mg Documented by: Levothyroxine Sodium (Levothyroxine Sodium 125 Mcg Tablet) 125 mcg PO DAILYBB [facility] Stop: 02/01/21 06:29 Last Admin: 01/04/21 06:17 Dose: 125 mcg Documented by: Lisinopril (Lisinopril 40 Mg Tab) 40 mg PO HS [facility] Stop: 02/01/21 20:59 Last Admin: 01/03/21 19:00 Dose: 40 mg Documented by: Miscellaneous (Fenofibrate 54 Mg - Order Awaiting Action) 1 ea N/A QS [facility] Stop: 02/01/21 07:59 Last Admin: 01/04/21 07:49 Dose: Not Given Documented by: Miscellaneous (Carbohydrates For Hypoglycemia ) 15 - 30 gm PO UD PRN PRN Reason: Hypoglycemia Treatment Stop: 02/01/21 05:14 Last Admin: 01/02/21 23:41 Dose: 15 gm Documented by: Miscellaneous Information (Pharmacy Glycemic Mgmt Consult) 1 ea N/A UD PRN PRN Reason: Consult Stop: 02/01/21 13:18 Montelukast Sodium (Montelukast Sodium 10 Mg Tablet) 10 mg PO DAILY [facility] Stop: 02/01/21 08:59 Last Admin: 01/04/21 07:50 Dose: 10 mg Documented by: Multivitamins (Multivitamin Tab) 1 tab PO QAM [facility] Stop: 02/01/21 08:59 Last Admin: 01/04/21 07:50 Dose: 1 tab Documented by: Nitroglycerin (Nitroglycerin Sl 0.4 Mg/Tab Tab) 0.4 mg SL UD PRN PRN Reason: Chest Pain Stop: 02/01/21 04:48 Polyethylene Glycol (Polyethylene (Miralax) 17 Gm Pack) 17 gm PO DAILY PRN PRN Reason: Constipation Stop: 02/01/21 04:48 Rosuvastatin Calcium (Rosuvastatin Calcium 20 Mg Tab) 40 mg PO HS [facility] Stop: 02/01/21 20:59 Last Admin: 01/03/21 20:52 Dose: 40 mg Documented by: Sotalol HCl (Sotalol Hcl 80 Mg Tab) 40 mg PO BID [facility] Stop: 02/02/21 20:59 Last Admin: 01/04/21 07:51 Dose: 40 mg Documented by: Vitamin D (Cholecalciferol 1,000 Units 25 Mcg Tab) 2,000 units PO QAM [facility] Stop: 02/01/21 08:59 Last Admin: 01/04/21 07:50 Dose: 2,000 units Documented by: Warfarin Sodium (Warfarin Sod 5 Mg Tab) 5 mg PO DAILY@1600 [facility] Stop: 02/01/21 15:59 Last Admin: 01/03/21 16:50 Dose: 5 mg Documented by:
--- NOTE | 2021-01-04 17:11 | Hospitalist Progress Note ---
Date of Service January 04, 2021 Assessment & Plan (1) Atrial fibrillation with rapid ventricular response: Plan: ASSESSMENT AND PLAN: This is a 70-year-old female who presents with rapid atrial fibrillation. 1. Rapid atrial fibrillation, asymptomatic. --Started on sotalol, reduced to 40 mg for prolonged QT Metoprolol on hold secondary to borderline bradycardia remains in SR, rate controlled asymptomatic Continue Coumadin 2. Mild elevation of troponin, likely secondary to demand ischemia from #1 3. Mild hypomagnesia, replaced 4. History of coronary artery disease, status post coronary artery bypass grafting, status post cardiac stent, . Status post successful percutaneous coronary intervention of ostial left anterior descending on 11/12/2020. --Continue Plavix, beta norberto and statin. 5. Diabetes. Continue home Lantus and insulin sliding scale. --A1c 6.7 6. Morbid obesity: Needs counseling. 7. Chronic kidney disease stage III, baseline creatinine 1.1-1.2. Stable 8. Sleep apnea seems to be on oxygen in the nighttime. 9. History of mitral stenosis, needs followup. 10. Deep venous thrombosis prophylaxis: On Coumadin. INR therapeutic. DISPOSITION: Pending Anticipate discharge to home medically stable Admission and Anticipated Discharge Date Admission Date: January 02, 2021 Subjective ff up for a fib in rvr, etc seen resting in chair, comfortable states she feels fine overall no palpitations, chest pain, dyspnea, dizziness no other symptoms Review of Systems Review of Systems: all noted and negative except for above Physical Exam Physical Exam: General- oriented x 3, not in distress, speaks in sentences with no effort or accessory muscle use Eyes- anicteric Neck- no JVD Lungs- clear BS BL Heart- normal rate, regular rhythm; no murmurs Abdomen- normal bowel sounds, nondistended, soft, nontender Extremities- no pretibial edema, no calf tenderness Neuro- alert, oriented x 3; no gross focal neurologic deficits Skin- warm & dry Results & Data Results & Data ([facility]) Vital Signs (Past 12 Hours) Vital Signs Temp Pulse Pulse Pulse Resp BP Pulse Ox 01/04/21 16:00 36.7 C 82 18 128/79 91 01/04/21 12:00 36.8 C 66 16 162/76 H 99 01/04/21 08:00 36.5 C 64 65 14 136/63 97 all noted and reviewed including below
[2021-01-04] MEDS: lisinopril 40 MG TAB PO SCH (20:02)
[2021-01-04] MEDS: EZETIMIBE 10 MG TABLET PO SCH (20:02)
[2021-01-04] MEDS: ROSUVASTATIN CALCIUM 20 MG TAB PO SCH (20:04)
[2021-01-04] MEDS: WARFARIN SOD 5 MG TAB PO SCH (20:04)
[2021-01-04] MEDS ORDERED: amLODIPine BESYLATE 5 MG TAB PO SCH (21:00)
--- NOTE | 2021-01-04 23:27 | Electrocardiogram Report ---
Test Reason : Blood Pressure : / mmHG Vent. Rate : 071 BPM Atrial Rate : 071 BPM P-R Int : 126 ms QRS Dur : 106 ms QT Int : 452 ms P-R-T Axes : 059 -86 048 degrees QTc Int : 491 ms Normal sinus rhythm Incomplete right bundle branch block Left anterior fascicular block Nonspecific ST abnormality Prolonged QT Abnormal ECG When compared with ECG of 03-JAN-2021 04:22, No significant change Confirmed by Eligio Calderon ([id number]) on 01/04/2021 11:27:15 PM Referred By: Ceasar Galdamez Confirmed By:Eligio Calderon
--- NOTE | 2021-01-05 05:36 | Electrocardiogram Report ---
Test Reason : Blood Pressure : / mmHG Vent. Rate : 070 BPM Atrial Rate : 070 BPM P-R Int : 138 ms QRS Dur : 100 ms QT Int : 450 ms P-R-T Axes : 050 -49 -03 degrees QTc Int : 486 ms Normal sinus rhythm Left axis deviation Incomplete right bundle branch block Nonspecific ST abnormality Prolonged QT Abnormal ECG When compared with ECG of 03-JAN-2021 18:01, No significant change was found Confirmed by Eligio Calderon ([id number]) on 01/05/2021 5:36:12 AM Referred By: Ceasar Galdamez Confirmed By:Eligio Calderon
[2021-01-05] MEDS: LEVOTHYROXINE SODIUM 125 MCG TABLET PO SCH (06:16)
[2021-01-05 06:35] LABS: INR 1.8 (0.9-1.1); Prothrombin Time 17.5 Seconds (9.0-12.0)
[2021-01-05 07:04] VITALS: BP 153/73; TEMP 97.7; O2SAT 95
[2021-01-05] MEDS: INSULIN ASPART 100 UNITS/ML 3 ML PEN SC SCH (08:19)
[2021-01-05] MEDS: CHOLECALCIFEROL 1,000 UNITS 25 MCG TAB PO SCH (08:20)
[2021-01-05] MEDS: INSULIN GLARGINE SOLOSTAR 100 UNITS/ML 3 ML PEN SQ SCH (08:21)
[2021-01-05] MEDS: CLOPIDOGREL BISULFATE 75 MG TAB PO SCH (08:21)
[2021-01-05] MEDS: ISOSORBIDE MONO EXTENDED REL 60 MG TABCR PO SCH (08:21)
[2021-01-05] MEDS: MULTIVITAMIN TAB PO SCH (08:22)
[2021-01-05] MEDS: MONTELUKAST SODIUM 10 MG TABLET PO SCH (08:22)
[2021-01-05] MEDS: SOTALOL HCL 80 MG TAB PO SCH (08:22)
[2021-01-05] MEDS ORDERED: amLODIPine BESYLATE 5 MG TAB PO ONE (09:07)
[2021-01-05 10:05] VITALS: PULSE 82
--- NOTE | 2021-01-05 10:10 | Cardiology Progress Note ---
Date of Service January 05, 2021 Assessment & Plan (1) Atrial fibrillation with rapid ventricular response: (2) Hypertensive urgency: (3) Elevated troponin: Plan: 70-year-old female with paroxysmal atrial fibrillation rapid ventricular response in the setting of uncontrolled hypertension. Patient currently asymptomatic and has reverted to sinus rhythm after sotalol dosing. QT corrected is mildly prolonged. We will continue current dosing of sotalol and all other medications. amlodipine increased to 5mg daily today ok to d/c to home on current regimen my office will call to arrange follow up in 1 month. Admission and Anticipated Discharge Date Admission Date: January 02, 2021 Subjective Pt seen and examined, chart reviewed. OOB in chair. States that she feels back to baseline. Denies cp, sob, palpitations, lightheadedness or dizziness. tele reviewed: sinus rhythm EKG: sinus with QTc of 498 ms. Review of Systems Review of Systems: All systems reviewed & are unremarkable except as noted in HPI & below Physical Exam Physical Exam: General: Awake, alert and oriented x 3. No acute distress. HEENT: Normocephalic, atraumatic. Pupils equal, round and reactive to light and accommodation. Extraocular muscles are intact. Anicteric sclera. Moist mucous membranes. Neck: No JVD. No bruit. Cardiovascular: Regular. Positive S-4. Normal S-1 and S-2. No S-3. 3/6 holosystolic ejection murmur, left sternal border, mid-clavicular line with radiation to the axilla. No rubs. Pulmonary: Clear to auscultation bilaterally. No rales, rhonchi, or wheezing. Abdomen: Bowel sounds x 4, soft. No rebound, guarding or tenderness. No organomegaly. Extremities: No clubbing, cyanosis or edema. +2 pedal pulses bilaterally. Skin: Warm and dry. Results & Data ([facility]) Vital Signs (Past 12 Hours) Vital Signs Temp Pulse Pulse Pulse Resp BP Pulse Ox 01/05/21 10:03 36.5 C 82 68 18 153/73 H 95 01/05/21 08:00 80 01/05/21 07:03 36.5 C 68 18 153/73 H 95 01/05/21 03:45 36.8 C 78 18 145/66 H 100 01/05/21 00:21 70 01/05/21 00:18 143/73 H 01/04/21 23:24 36.8 C 67 18 178/71 H 96
--- NOTE | 2021-01-05 11:05 | Hospitalist Progress Note ---
Date of Service January 05, 2021 Assessment & Plan (1) Atrial fibrillation with rapid ventricular response: Plan: ASSESSMENT AND PLAN: This is a 70-year-old female who presents with rapid atrial fibrillation. 1. Rapid atrial fibrillation, asymptomatic. --Started on sotalol, reduced to 40 mg for prolonged QT Metoprolol on hold secondary to borderline bradycardia remains in SR, rate controlled asymptomatic -Discharge plan per cardiology recommendations: Sotalol 40 mg twice a day Continue Coumadin Follow-up with automatic developer in 2 weeks Hypertension --Blood pressure elevated while admitted Per cardiology recommendation, increase Imdur from 30 to 60 mg daily, amlodipine added 5 mg daily Monitor blood pressure as an outpatient 2. Mild elevation of troponin, likely secondary to demand ischemia from #1 3. Mild hypomagnesia, replaced 4. History of coronary artery disease, status post coronary artery bypass grafting, status post cardiac stent, . Status post successful percutaneous coronary intervention of ostial left anterior descending on 11/12/2020. --Continue Plavix, beta norberto and statin. 5. Diabetes. Continue home Lantus and insulin sliding scale. --A1c 6.7 6. Morbid obesity: Needs counseling. 7. Chronic kidney disease stage III, baseline creatinine 1.1-1.2. Stable 8. Sleep apnea seems to be on oxygen in the nighttime. 9. History of mitral stenosis, needs followup. 10. Deep venous thrombosis prophylaxis: On Coumadin. INR therapeutic. DISPOSITION: Discharged home Follow-up with PCP in 1 week, cardiology service in 2 weeks plan of care discussed with patient in detail and at length all questions answered She is understanding, agreeable, comfortable with the plan of care Admission and Anticipated Discharge Date Admission Date: January 02, 2021 Subjective Follow-up for atrial fibrillation RVR, etc. Seen sitting up in bedside chair, comfortable, in good spirits States she feels much better overall No recurrence of chest pain, palpitations, dizziness, shortness of breath No other symptoms States that she is ready and like to go home today Review of Systems Review of Systems: all noted and negative except for above Physical Exam Physical Exam: General- oriented x 3, not in distress, speaks in sentences with no effort or accessory muscle use Eyes- anicteric Neck- no JVD Lungs- clear to auscultation bilaterally No crackles, no wheezing Heart- normal rate, regular rhythm; no murmurs Abdomen- normal bowel sounds, nondistended, soft, no tenderness in all quadrants Extremities- no pretibial edema, no calf tenderness Neuro- alert, oriented x 3; no gross focal neurologic deficits Skin- warm & dry Results & Data Results & Data ([facility]) Vital Signs (Past 12 Hours) Vital Signs Temp Pulse Pulse Pulse Resp BP Pulse Ox 01/05/21 10:03 36.5 C 82 68 18 153/73 H 95 01/05/21 08:00 80 01/05/21 07:03 36.5 C 68 18 153/73 H 95 01/05/21 03:45 36.8 C 78 18 145/66 H 100 01/05/21 00:21 70 01/05/21 00:18 143/73 H 01/04/21 23:24 36.8 C 67 18 178/71 H 96 all noted and reviewed including below
--- NOTE | 2021-01-05 11:07 | Discharge Summary ---
Date of Service January 05, 2021 Admission HPI Per Admitting Provider CHIEF COMPLAINT: Palpitation. HISTORY OF PRESENT ILLNESS: This is a 70-year-old female with past medical history significant for type 2 diabetes, chronic kidney disease stage III, diabetic retinopathy, hypothyroidism, hyperlipidemia, obstructive sleep apnea, history of CAD, paroxysmal atrial fibrillation, hypertension, mitral stenosis, morbid obesity, history of calculus of gallbladder, generalized osteoarthritis, psoriasis, presents with palpitations. The patient states from the morning, she was feeling of heart racing. Denies any chest pain, no dizziness, no blurred visions, no shortness of breath, and otherwise doing okay. Daughter called advised her to call family doctor and was advised to come to the ER. Currently, resting comfortably and hemodynamically stable. She received a dose of IV Lopressor in the ER. EKG shows rapid AFib. Denies any headache, no nausea, no abdominal pain, normal bowel and bladder movements. No swelling in the legs. ALLERGIES: IODINATED CONTRAST MEDIA, OXYCODONE, DILTIAZEM. PAST MEDICAL HISTORY: As mentioned above. PAST SURGICAL HISTORY: , CABG, oral surgery, appendectomy, status post cardiac stent. MEDICATIONS: The patient is on Tylenol 650 mg p.o. p.r.n., vitamin D 2000 units p.o. a.m., Plavix 75 mg p.o. a.m., ezetimibe 10 mg p.o. daily, fenofibrate 54 mg p.o. daily, Humalog 30 units with each meal, isosorbide mononitrate 30 mg p.o. a.m., Lantus 30 units subQ at bedtime, levothyroxine 125 mcg p.o. daily, lisinopril 40 mg p.o. at bedtime, metoprolol tartrate 100 mg p.o. b.i.d., montelukast 10 mg p.o. daily, multivitamin one tablet p.o. daily, omega-3 fatty acids 4 capsules p.o. a.m., rosuvastatin, Crestor 40 mg p.o. at bedtime, warfarin 5 mg p.o. at bedtime. FAMILY HISTORY: Significant for brother has AAA and heart disorder. SOCIAL HISTORY: , currently living alone. No smoking, alcohol, no drug use. REVIEW OF SYSTEMS: As per HPI. Rest of review of systems is negative. Admission Exam (Per Admitting) Constitutional PHYSICAL EXAMINATION: GENERAL: The patient is morbidly obese, not in acute distress. VITAL SIGNS: Temperature 37, pulse 111, respiratory rate 12, blood pressure 152/80, oxygen 96% on room air. HEENT: Pupils equal, round and reactive to light. Oral mucosa moist. NECK: No JVD, no neck masses. CARDIOVASCULAR: S1 and S2 heard. Regular rhythm, tachycardia. No murmur. RESPIRATORY SYSTEM: Normal AP diameter. No accessory muscle use. No wheezing, no crackles. ABDOMEN: Soft, bowel sounds present, nontender, nondistended. CENTRAL NERVOUS SYSTEM: Cranial nerves II-XII grossly intact, nonfocal. EXTREMITIES: Mild pedal edema present, no erythema seen. Discharge Data Consultations 01/01/21 22:51 ED Decision to Admit Stat 01/02/21 08:00 Consult Cardiology Routine Hospital Course (1) Atrial fibrillation with rapid ventricular response: ASSESSMENT AND PLAN: This is a 70-year-old female who presents with rapid atrial fibrillation. 1. Rapid atrial fibrillation, asymptomatic. --Started on sotalol, reduced to 40 mg for prolonged QT Metoprolol on hold secondary to borderline bradycardia remains in SR, rate controlled asymptomatic -Discharge plan per cardiology recommendations: Sotalol 40 mg twice a day Continue Coumadin Follow-up with recreation clerk in 2 weeks Hypertension --Blood pressure elevated while admitted Per cardiology recommendation, increase Imdur from 30 to 60 mg daily, amlodipine added 5 mg daily Monitor blood pressure as an outpatient 2. Mild elevation of troponin, likely secondary to demand ischemia from #1 3. Mild hypomagnesia, replaced 4. History of coronary artery disease, status post coronary artery bypass grafting, status post cardiac stent, . Status post successful percutaneous coronary intervention of ostial left anterior descending on 11/12/2020. --Continue Plavix, beta norberto and statin. 5. Diabetes. Continue home Lantus and insulin sliding scale. --A1c 6.7 6. Morbid obesity: Needs counseling. 7. Chronic kidney disease stage III, baseline creatinine 1.1-1.2. Stable 8. Sleep apnea seems to be on oxygen in the nighttime. 9. History of mitral stenosis, needs followup. DISPOSITION: Discharged home Follow-up with PCP in 1 week, cardiology service in 2 weeks plan of care discussed with patient in detail and at length all questions answered She is understanding, agreeable, comfortable with the plan of care
--- NOTE | 2021-01-05 12:50 | Electrocardiogram Report ---
Test Reason : Blood Pressure : / mmHG Vent. Rate : 075 BPM Atrial Rate : 075 BPM P-R Int : 128 ms QRS Dur : 110 ms QT Int : 446 ms P-R-T Axes : 057 -49 049 degrees QTc Int : 498 ms Normal sinus rhythm Incomplete right bundle branch block Left anterior fascicular block Diffuse Nonspecific ST abnormality Prolonged QT Abnormal ECG When compared with ECG of 04-JAN-2021 06:21, No significant change was found Confirmed by Edinson Aleman ([id number]) on 01/05/2021 12:50:05 PM Referred By: Ceasar Galdamez Confirmed By:Edinson Aleman
[2021-01-06] MEDS ORDERED: amLODIPine BESYLATE 5 MG TAB PO SCH (09:00)
== END 2021-01-05 10:40 | disposition home or self-care (01) | DRG 309 ==
LOC: ED 17:43 → SUATTDRO 01-02 00:50 → EDINP 01-02 00:50 → 2S 01-02 03:18
DX: E11.319 Type 2 diabetes mellitus with unspecified diabetic retinopathy without macular edema; R79.89 Other specified abnormal findings of blood chemistry; Z88.8 Allergy status to other drugs, medicaments and biological substances; Z79.4 Long term (current) use of insulin; I13.0 Hypertensive heart and chronic kidney disease with heart failure and stage 1 through stage 4 chronic kidney disease, or unspecified chronic kidney disease; Z83.3 Family history of diabetes mellitus; E83.42 Hypomagnesemia; E03.9 Hypothyroidism, unspecified; E66.01 Morbid (severe) obesity due to excess calories; I25.2 Old myocardial infarction; Z95.1 Presence of aortocoronary bypass graft; Z82.49 Family history of ischemic heart disease and other diseases of the circulatory system; I48.0 Paroxysmal atrial fibrillation; Z91.041 Radiographic dye allergy status; N18.30 Chronic kidney disease, stage 3 unspecified; Z88.5 Allergy status to narcotic agent; I50.32 Chronic diastolic (congestive) heart failure; I24.8 Other forms of acute ischemic heart disease; I16.0 Hypertensive urgency; Z86.73 Personal history of transient ischemic attack (TIA), and cerebral infarction without residual deficits; Z68.41 Body mass index [BMI] 40.0-44.9, adult

== ENCOUNTER 2021-06-24 14:03 | Inpatient (IN) ==
[2021-06-24] MEDS ORDERED: NITROGLYCERIN 2% OINTMENT 30GM TUBE EXT ONE (14:25)
[2021-06-24] MEDS ORDERED: ACETAMINOPHEN 1,000 MG/100 ML VIAL IV STA (14:25)
[2021-06-24] MEDS ORDERED: fentaNYL citrate 100 MCG/2 ML VIAL IV STA (14:25)
--- NOTE | 2021-06-24 14:32 | Emergency Department Note ---
History of Present Illness General Chief complaint: Cardiac Assessment Stated complaint: POSSIBLE HEART ATTACK Time Seen by Provider: 06/24/21 14:14 Source: patient Mode of arrival: ambulatory Limitations: no limitations History of Present Illness Provider complaint: Chest pain Maximum Pain Intensity: 10 Associated symptoms: + denies other symptoms Treatments prior to arrival: none This is a 71-year-old female presents emergency department complaining of chest pain. Patient initially stated chest pain started this afternoon between 1 and 130. With additional conversation she admitted the chest pain had actually been going on for several weeks, and is often worse at night. She states she feels the pain in the central and left central chest radiate into the back and into bilateral arms. No radiation to the neck or jaw. No change with position. She states occasionally if she gets up and walks around it feels better. She denies any coming nausea, diaphoresis, shortness of breath, or dizziness. Patient states on June 12 she visited her PCP and her amlodipine was discontinued and her metoprolol was decreased to 25 mg twice daily as she had had a few prior episodes of hypotension. She believes that her symptoms began after this med adjustment. Patient states she did have an upcoming appointment today in the office with Dr. Galdamez that had been routinely scheduled. She denies any recent fevers, chills, cough or cold symptoms. She denies any vomiting or diarrhea. Patient states she has had some mild lower extremity edema. Patient has had prior CABG x1, and several prior stents placed in addition. Patient states her symptoms are similar to her prior heart attack when she ended up with a CABG. Pt seen during a time of high acuity and national emergency pandemic while wearing PPE. Home Medications Medication Instructions Recorded Confirmed Type cholecalciferol (vitamin D3) 50 2,000 unit PO QAM 02/07/18 06/24/21 History mcg (2,000 unit) capsule (Vitamin D3) multivitamin 1 tab PO QAM 02/07/18 06/24/21 History rosuvastatin 40 mg tablet 40 mg PO HS 08/09/18 06/24/21 History lisinopril 40 mg tablet 40 mg PO HS tab 09/19/18 06/24/21 History warfarin 5 mg tablet 5 mg PO HS 09/19/18 06/24/21 History ezetimibe 10 mg tablet 10 mg PO HS 04/05/19 06/24/21 History montelukast 10 mg tablet 10 mg PO DAILY tab 04/05/19 06/24/21 History (Singulair) fenofibrate 54 mg tablet 54 mg PO HS 04/24/20 06/24/21 History clopidogrel 75 mg tablet 75 mg PO QAM #30 tab 11/13/20 06/24/21 Rx isosorbide mononitrate 60 mg 60 mg PO QAM 30 Days #30 tab 01/05/21 06/24/21 Rx tablet,extended release 24 hr sotalol 80 mg tablet 40 mg PO BID 30 Days #30 tab 01/05/21 06/24/21 Rx insulin glargine 100 unit/mL (3 30 unit SQ HS #30 ml 02/27/21 06/24/21 Rx mL) subcutaneous pen (Lantus Solostar U-100 Insulin) Humalog KwikPen Insulin 100 See Rx Instructions SQ TID #30 ml 03/06/21 06/24/21 Rx unit/mL subcutaneous (insulin NS lispro) levothyroxine 125 mcg tablet 125 mcg PO QAM #90 tab 03/19/21 06/24/21 Rx acetaminophen 650 mg 650 mg PO Q12H PRN tab 04/28/21 06/24/21 History tablet,extended release (Tylenol Arthritis Pain) blood-glucose meter,continuous 04/28/21 04/28/21 History (Dexcom G6 Community Services Coordinator) blood-glucose sensor (Dexcom G6 04/28/21 04/28/21 History Sensor) blood-glucose transmitter (Dexcom 04/28/21 04/28/21 History G6 Transmitter) magnesium oxide 400 mg PO DAILY 04/28/21 06/24/21 History omega-3 fatty acids-fish oil 684 2 cap PO QAM cap 04/28/21 06/24/21 History mg-1,200 mg capsule,delayed release zinc 50 mg tablet 50 mg PO DAILY 04/28/21 06/24/21 History pen needle, diabetic 31 gauge x #400 ea 05/07/21 Rx 05/06" (BD Ultra-Fine Mini Pen Needle) ascorbic acid (vitamin C) 500 mg 500 mg PO DAILY 06/24/21 06/24/21 History tablet metoprolol tartrate 25 mg tablet 25 mg PO BID 06/24/21 06/24/21 History Allergies Allergy/AdvReac Type Severity Reaction Status Date / Time Iodinated Contrast Media Allergy Intermediate TEARS AND Verified 06/24/21 15:37 FACE BECAME VERY REDDENED oxycodone Allergy Mild itchy Verified 06/24/21 15:37 diltiazem AdvReac Unknown Unknown Verified 06/24/21 16:18 Blood-Group Specific Allergy Unknown NO BLOOD Uncoded 06/24/21 15:37 Substance PRODUCTS Past Med/Surg History Medical History Allergy desensitization therapy Atrial fibrillation controlled with medication Bronchitis hx CHF (congestive heart failure) Chronic kidney disease, stage III (moderate) Dr Patten Colon polyp Diabetes mellitus, type 2 IDDM Hyperlipidemia Hypertension Hypertriglyceridemia Hypothyroidism Myocardial Infarction September 2004 On anticoagulant therapy On home oxygen therapy 2lpm via n/c at HS Osteoarthritis Pyelonephritis Retinopathy Sleep apnea oxygen only at HS Transient ischemic attack (TIA) ~10 years ago Tubular adenoma of colon Vertigo hx Surgical History H/O colonoscopy History of appendectomy History of cardiac cath 2004 History of cataract surgery left History of section History of heart artery stent x2 stents (2004) STACEY Eduardo Hx of CABG x1 vessel (2004) STACEY Eduardo Family History Father Diabetes Social History Smoking Status: Never smoker Second Hand Exposure: No; Hx Alcohol Use: No Hx Substance Use: No Preferred Language: Divehi Communication Ability: Effective 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 Beliefs That Will Affect Care: Taoism Taoism Beliefs: Jehovah Witness marital status: Unknown Current Living Situation: Alone How many Children do You have: 3 Other Information That Helps Us Care for You: No Feels Safe at Home: Yes Safety Concerns: Feels Safe At This Time Assistive Devices: Oxygen - at Night and Walker Review of Systems A total of 10 systems reviewed and were otherwise negative All systems reviewed & are unremarkable except as noted in HPI & below Physical Exam Vital Signs Vital Signs - 24 hr 06/24/21 14:38 06/24/21 14:40 06/24/21 14:45 Pulse Rate 84 84 83 Pulse Rate from SpO2 Sensor 84 84 83 Respiratory Rate 15 25 H 24 Respiratory Effort / Characteristics Respiratory Depth Blood Pressure 175/66 H Blood Pressure Mean 102 Pulse Oximetry 97 97 97 Oxygen Delivery Method 06/24/21 14:50 06/24/21 15:00 06/24/21 15:10 Pulse Rate 81 79 78 Pulse Rate from SpO2 Sensor 80 79 76 Respiratory Rate 15 22 20 Respiratory Effort / Characteristics Respiratory Depth Blood Pressure Blood Pressure Mean Pulse Oximetry 96 94 96 Oxygen Delivery Method Room Air 06/24/21 15:12 06/24/21 15:20 06/24/21 15:30 Pulse Rate 77 75 73 Pulse Rate from SpO2 Sensor 77 75 73 Respiratory Rate 21 14 19 Respiratory Effort / Characteristics Respiratory Depth Blood Pressure 188/84 H Blood Pressure Mean 118 Pulse Oximetry 95 96 95 Oxygen Delivery Method 06/24/21 15:40 06/24/21 15:50 06/24/21 16:00 Pulse Rate 71 72 78 Pulse Rate from SpO2 Sensor 72 77 Respiratory Rate 18 19 19 Respiratory Effort / Characteristics Respiratory Depth Blood Pressure Blood Pressure Mean Pulse Oximetry 95 96 Oxygen Delivery Method 06/24/21 16:03 06/24/21 16:04 Pulse Rate 73 Pulse Rate from SpO2 Sensor 74 Respiratory Rate 23 Respiratory Effort / Characteristics Non-Labored Respiratory Depth Normal Blood Pressure 195/81 H Blood Pressure Mean 119 Pulse Oximetry 96 Oxygen Delivery Method GENERAL: alert, anxious appearing, well nourished, no distress, non-toxic, tearful EYE EXAM: normal conjunctiva, PERRL and EOM's grossly intact OROPHARYNX: no exudate, no erythema, lips, buccal mucosa, and tongue normal and mucous membranes are moist NECK: supple, no nuchal rigidity, no adenopathy, non-tender LUNGS: Clear to auscultation. Normal chest wall mechanics, no w/r/r HEART: no murmurs, S1 normal and S2 normal ABDOMEN: abdomen soft, non-tender, normo-active bowel sounds, no masses, no rebound or guarding. BACK: Back is symmetrical on inspection and there is no deformity, no midline tenderness, no CVA tenderness. SKIN: no rashes and no bruising UPPER EXTREMITIES: upper extremities are grossly normal. FROM, nml pulses b/l. LOWER EXTREMITIES: No pitting edema. FROM, nml pulses b/l. NEURO EXAM: Normal sensorium, cranial nerves II-XII grossly intact, normal speech, no gross weakness of arms, no gross weakness of legs. Gross sensation intact. Course Course 1600: Patient updated on results. States pain is markedly improved although not entirely gone. Denies any history of reflux/heartburn related symptoms recently. States she does take magnesium supplementation daily. She states she believes last time she had a stress test or echo was 2 years ago. Administered Medications Acetaminophen (Acetaminophen 325 Mg Tab) 650 mg PO Q4H PRN PRN Reason: Pain or Fever Stop: 07/24/21 20:36 Last Admin: 06/24/21 22:15 Dose: 650 mg Documented by: [id number] Amlodipine Besylate (Amlodipine Besylate 5 Mg Tab) 5 mg PO [facility] Stop: 07/25/21 11:44 Last Admin: 06/25/21 12:25 Dose: 5 mg Documented by: [id number] Ascorbic Acid (Ascorbic Acid 500 Mg Tab) 500 mg PO DAILY [facility] Stop: 07/25/21 08:59 Last Admin: 06/25/21 08:26 Dose: 500 mg Documented by: [id number] Clopidogrel Bisulfate (Clopidogrel Bisulfate 75 Mg Tab) 75 mg PO [facility] Stop: 07/25/21 08:59 Last Admin: 06/25/21 08:26 Dose: 75 mg Documented by: [id number] Ezetimibe (Ezetimibe 10 Mg Tablet) 10 mg PO [facility] Stop: 07/24/21 20:59 Last Admin: 06/24/21 22:05 Dose: 10 mg Documented by: [id number] Fenofibrate (Fenofibrate Nanocrystallized 48 Mg Tablet) 48 mg PO [facility] Stop: 07/24/21 20:59 Last Admin: 06/24/21 22:04 Dose: 48 mg Documented by: [id number] Insulin Glargine (Insulin Glargine Solostar 100 Units/Ml 3 Ml Pen) 30 units SC [facility]; Protocol Stop: 07/24/21 20:59 Last Admin: 06/24/21 22:01 Dose: 30 units Documented by: [id number] Cosigned by: [id number] Isosorbide Mononitrate (Isosorbide Ashe Extended Rel 60 Mg Tabcr) 60 mg PO [facility] Stop: 07/25/21 08:59 Last Admin: 06/25/21 08:26 Dose: 60 mg Documented by: [id number] Levothyroxine Sodium ([facility]othyroxine S[facility] 125 [facility]g [facility]) [facility]: 07/25/21 06:29 Last Admin: 06/25/21 06:12 Dose: 125 mcg Documented by: [id number] Lisinopril (Lisinopril 40 Mg Tab) 40 mg PO [facility] Stop: 07/24/21 20:59 Last Admin: 06/24/21 22:04 Dose: 40 mg Documented by: [id number] Magnesium Oxide (Magnesium Oxide 400 Mg Tab) 400 mg PO DAILY [facility] Stop: 07/25/21 08:59 Last Admin: 06/25/21 08:26 Dose: 400 mg Documented by: [id number] Metoprolol Tartrate (Metoprolol Tartrate 50 Mg Tab) 50 mg PO BID [facility] Stop: 07/24/21 20:59 Last Admin: 06/25/21 08:27 Dose: 50 mg Documented by: [id number] Admin: 06/24/21 22:05 Dose: 50 mg Documented by: [id number] Montelukast Sodium (Montelukast Sodium 10 Mg Tablet) 10 mg PO DAILY [facility] Stop: 07/25/21 08:59 Last Admin: 06/25/21 08:26 Dose: 10 mg Documented by: [id number] Multivitamins (Multivitamin Tab) 1 tab PO QAM [facility] Stop: 07/25/21 08:59 Last Admin: 06/25/21 08:27 Dose: 1 tab Documented by: [id number] Nitroglycerin (Nitroglycerin 2% Ointment 30gm Tube) 1 inch EXT Q6H [facility] Stop: 07/24/21 20:59 Last Admin: 06/25/21 08:28 Dose: 1 inch Documented by: [id number] Admin: 06/25/21 03:39 Dose: 1 inch Documented by: [id number] Admin: 06/24/21 22:15 Dose: 1 inch Documented by: [id number] Rosuvastatin Calcium (Rosuvastatin Calcium 20 Mg Tab) 40 mg PO [facility] Stop: 07/24/21 20:59 Last Admin: 06/24/21 22:04 Dose: 40 mg Documented by: [id number] Sotalol HCl (Sotalol Hcl 80 Mg Tab) 40 mg PO BID [facility] Stop: 07/24/21 20:59 Last Admin: 06/25/21 08:26 Dose: 40 mg Documented by: [id number] Admin: 06/24/21 22:04 Dose: 40 mg Documented by: [id number] Vitamin D (Cholecalciferol 1,000 Units 25 Mcg Tab) 2,000 units PO QAM [facility] Stop: 07/25/21 08:59 Last Admin: 06/25/21 08:26 Dose: 2,000 units Documented by: [id number] Discontinued Medications Fentanyl Citrate (Fentanyl Citrate 100 Mcg/2 Ml Vial) 50 mcg IV NOW STA Stop: 06/24/21 14:26 Last Admin: 06/24/21 14:50 Dose: 50 mcg Documented by: [id number] Acetaminophen (Ofirmev) 1,000 mg in 100 mls @ 400 mls/hr IV NOW STA Stop: 06/24/21 14:39 Last Infusion: 06/24/21 15:17 Dose: 0 mls/hr Documented by: [id number] Admin: 06/24/21 14:50 Dose: 400 mls/hr Documented by: [id number] Magnesium Sulfate/Dextrose (Magnesium Sulfate / D5w) 1 gm in 100 mls @ 100 mls/hr IV Q1H [facility] Stop: 06/24/21 17:41 Last Infusion: 06/24/21 18:58 Dose: 0 mls/hr Documented by: [id number] Admin: 06/24/21 18:00 Dose: 100 mls/hr Documented by: [id number] Infusion: 06/24/21 17:59 Dose: 0 mls/hr Documented by: [id number] Admin: 06/24/21 16:27 Dose: 100 mls/hr Documented by: [id number] Famotidine (Pepcid 20mg Iv Push) 20 mg in 5 mls @ 2.5 mls/min IV NOW STA Stop: 06/24/21 16:02 Last Admin: 06/24/21 16:27 Dose: 2.5 mls/min Documented by: [id number] Heparin Sodium/Dextrose (Heparin Sodium/Dextrose) 25,000 units in 500 mls @ 0 mls/hr IV .Q0M [facility]; Protocol Stop: 07/24/21 18:29 Last Titration: 06/24/21 21:29 Dose: 0 units/hr, 0 mls/hr Documented by: [id number] Cosigned by: [id number] Admin: 06/24/21 19:54 Dose: 1,200 units/hr, 24 mls/hr Documented by: [id number] Cosigned by: [id number] Insulin Aspart (Insulin Aspart Per Unit) 0 units SC ACHS [facility]; Protocol Stop: 07/24/21 20:59 Last Admin: 06/25/21 10:19 Dose: Not Given Documented by: [id number] Admin: 06/24/21 22:00 Dose: 6 units Documented by: [id number] Cosigned by: [id number] Insulin Aspart (Insulin Aspart Per Unit) 0 units SC Q6 [facility]; Protocol Stop: 07/25/21 11:59 Last Admin: 06/25/21 12:42 Dose: Not Given Documented by: [id number] Insulin Aspart (Insulin Aspart Per Unit) 0 units SC ONE ONE Stop: 06/25/21 12:31 Last Admin: 06/25/21 12:25 Dose: 11 units Documented by: [id number] Cosigned by: [id number] Labetalol HCl (Labetalol Hcl Iv 5 Mg/Ml 20ml) 5 mg IV NOW STA Stop: 06/24/21 17:18 Last Admin: 06/24/21 18:29 Dose: Not Given Documented by: [id number] Nitroglycerin (Nitroglycerin 2% Ointment 30gm Tube) 1 inch EXT NOW ONE Stop: 06/24/21 14:26 Last Admin: 06/24/21 14:50 Dose: 1 inch Documented by: [id number] Perflutren Lipid Microsphere (Perflutren Lipid Microsphere ([employer])) 2 ml IV ONCE ONE Stop: 06/25/21 07:15 Last Admin: 06/25/21 07:15 Dose: 2 ml Documented by: [id number] Phytonadione (Phytonadione 5 Mg Tab) 2.5 mg PO NOW STA Stop: 06/25/21 11:50 Last Admin: 06/25/21 12:25 Dose: 2.5 mg Documented by: [id number] Medical Decision Making Differential Diagnosis Differential diagnoses includes but is not limited to acute coronary syndrome, myocardial infarction, pericarditis, pulmonary embolus, aortic dissection, pneumonia, pneumothorax, musculoskeletal, shingles, esophageal. Medical Records Attestation: I reviewed the patient's medical records. Home Medications Current Medication List: was personally reviewed by me Laboratory Data Attestation: I reviewed the patient's lab results. Result diagrams: 06/25/21 08:00 06/25/21 08:00 Lab Results 06/24/21 06/24/21 06/24/21 Range/Units 14:59 14:59 14:59 WBC 7.48 (4.8-10.8) K/uL RBC 4.20 (4.2-5.4) M/uL Hgb 13.2 (12.0-16.0) g/dL Hct 39.5 (37-47) % MCV 94.0 (80-100) fL MCH 31.4 (25-34) pg MCHC 33.4 (32-36) g/dL RDW Std Deviation 44.0 (36.4-46.3) fL RDW Coeff of Ree 12.8 (11.5-14.5) % Plt Count 257 (130-400) K/uL MPV 11.1 H (7.4-10.4) fL Immature Gran % (Auto) 0.3 % Neut % (Auto) 59.4 % Lymph % (Auto) 29.4 % Ashe % (Auto) 8.2 % Eos % (Auto) 2.4 % Baso % (Auto) 0.3 % Neut # (Auto) 4.45 (1.4-6.5) K/uL Lymph # (Auto) 2.20 (1.2-3.4) K/uL Ashe # (Auto) 0.61 H (0.11-0.59) K/uL Eos # (Auto) 0.18 (0-0.5) K/uL Baso # (Auto) 0.02 (0-0.2) K/uL Immature Gran # (Auto) 0.02 (0.00-0.02) K/uL PT (9.0-12.0) Seconds INR (0.9-1.1) APTT (21.0-31.0) Seconds PTT Ratio D-Dimer 210 (0-500) ug/L FEU Sodium 134 L (136-145) mmol/L Potassium 3.9 (3.5-5.1) mmol/L Chloride 99 (98-107) mmol/L Carbon Dioxide 26 (21-32) mmol/L Anion Gap 9 (3-11) BUN 24 H (6-23) mg/dl Creatinine 0.96 (0.6-1.2) mg/dl Est Cr Clr Drug Dosing 55.0 ml/min Est GFR ( Amer) 68.0 ml/min Est GFR (Non-Af Amer) 58.7 ml/min BUN/Creatinine Ratio 25.0 H (10-20) Glucose 165 H (70-99(Fasting)) mg/dl Calcium 9.2 (8.5-10.1) mg/dl Magnesium 1.3 L (1.7-2.4) mg/dl Total Bilirubin 0.5 (0.2-1.0) mg/dl AST 24 (13-39) U/L ALT 14 (7-52) U/L Alkaline Phosphatase 60 (34-104) U/L Troponin I High Sens 14.0 (0-14) pg/ml Total Protein 6.9 (6.0-8.3) gm/dl Albumin 3.7 (3.4-5.0) gm/dl Globulin 3.2 (2.5-4.0) gm/dl Albumin/Globulin Ratio 1.2 (0.9-2) Lipase 26 (11-82) U/L 06/24/21 06/24/21 Range/Units 14:59 14:59 WBC (4.8-10.8) K/uL RBC (4.2-5.4) M/uL Hgb (12.0-16.0) g/dL Hct (37-47) % MCV (80-100) fL MCH (25-34) pg MCHC (32-36) g/dL RDW Std Deviation (36.4-46.3) fL RDW Coeff of Ree (11.5-14.5) % Plt Count (130-400) K/uL MPV (7.4-10.4) fL Immature Gran % (Auto) % Neut % (Auto) % Lymph % (Auto) % Ashe % (Auto) % Eos % (Auto) % Baso % (Auto) % Neut # (Auto) (1.4-6.5) K/uL Lymph # (Auto) (1.2-3.4) K/uL Ashe # (Auto) (0.11-0.59) K/uL Eos # (Auto) (0-0.5) K/uL Baso # (Auto) (0-0.2) K/uL Immature Gran # (Auto) (0.00-0.02) K/uL PT 27.2 H (9.0-12.0) Seconds INR 2.7 H (0.9-1.1) APTT 40.5 H (21.0-31.0) Seconds PTT Ratio 1.5 D-Dimer (0-500) ug/L FEU Sodium (136-145) mmol/L Potassium (3.5-5.1) mmol/L Chloride (98-107) mmol/L Carbon Dioxide (21-32) mmol/L Anion Gap (3-11) BUN (6-23) mg/dl Creatinine (0.6-1.2) mg/dl Est Cr Clr Drug Dosing ml/min Est GFR ( Amer) ml/min Est GFR (Non-Af Amer) ml/min BUN/Creatinine Ratio (10-20) Glucose (70-99(Fasting)) mg/dl Calcium (8.5-10.1) mg/dl Magnesium (1.7-2.4) mg/dl Total Bilirubin (0.2-1.0) mg/dl AST (13-39) U/L ALT (7-52) U/L Alkaline Phosphatase (34-104) U/L Troponin I High Sens (0-14) pg/ml Total Protein (6.0-8.3) gm/dl Albumin (3.4-5.0) gm/dl Globulin (2.5-4.0) gm/dl Albumin/Globulin Ratio (0.9-2) Lipase (11-82) U/L Imaging Data Radiologist's Impression: Chest X-Ray 06/24/21 14:26 XR chest 1V portable HISTORY: 71 years-old Female chest pain acute atypical chest pain COMPARISON: 01/01/2021 TECHNIQUE: Portable AP view of the chest FINDINGS: Cardiac silhouette is enlarged. Prior median sternotomy. Atherosclerosis of the thoracic aorta. No pneumothorax, large pleural effusion or overt pulmonary edema. Degenerative changes of the shoulders and spine. IMPRESSION: Cardiomegaly without acute process. ACT 112: Negative or not required by law. The above report was generated using voice recognition software. It may contain grammatical, syntax or spelling errors. Electronically signed by: Vu Prince M.D. 06/24/2021 2:41 PM ECG Data Attestation: I personally reviewed and interpreted this ECG as follows: Indication: + chest pain Rate (beats per minute): 97 Rhythm: + normal sinus ECG Intervals/blocks: + Normal QRS and + Normal QT ECG [place]: + Left axis deviation ECG ST segments: + Nonspecific ST abnormalities Additional Comments: incomplete RBBB MDM Narrative This is a 71 yo female who presents to the ER with chest pain. Patient initially stated it began with family last few hours, then overnight, then upon further questioning has been going on for at least a week. Patient does have prior significant cardiac history including CABG and prior stenting. Patient does follow with cardiology and was headed to Dr. Galdamez's office. Patient's EKG reassuring. No recent illness or infection. Patient's troponin negative. D-dimer negative. Patient states she does take anticoagulation due to history of atrial fibrillation. Patient was found to have significant hypomagnesemia. She was started on IV repletion. Patient did have hypertension here. It is unclear if this is secondary to her anxiety and discomfort or could have been the cause of her chest pain. No evidence of hypertensive emergency at this time. I do not suspect dissection, pericardial effusion, pericarditis/myocarditis, occult pneumonia, CHF, or mediastinitis. Patient updated on results and was improved after Tylenol and Nitropaste. She was given additional Pepcid for possible GERD as she did notice an increase in the symptoms at night. She remained hemodynamically stable while in the emergency room, no ectopy or dysrhythmia noted on telemetry. Case discussed with hospitalist for additional evaluation and management. An order was placed for continuous cardiac monitoring. The monitor shows a rate of _86_ with _normal sinus_ rhythm. Impression & Plan Chest pain, Hypomagnesemia, Hypertension Discharge Plan Visit Data Chief Complaint: Cardiac Assessment Stated Complaint: POSSIBLE HEART ATTACK ED Provider: Elyse Dempsey Discharge Problem: Chest pain, Hypomagnesemia, Hypertension Patient Disposition: Admitted As Inpatient Discharge Instructions Interventions: ED Discharge Assessment Last Done: 06/24/21 20:42 Discharge Problem: Chest pain Qualifiers: Chest pain type: unspecified Qualified Code(s): R07.9 - Chest pain, unspecified Hypertension Qualifiers: Hypertension type: primary hypertension Qualified Code(s): I10 - Essential (primary) hypertension
--- NOTE | 2021-06-24 14:43 | XRay Report ---
XR chest 1V portable HISTORY: 71 years-old Female chest pain acute atypical chest pain COMPARISON: 01/01/2021 TECHNIQUE: Portable AP view of the chest FINDINGS: Cardiac silhouette is enlarged. Prior median sternotomy. Atherosclerosis of the thoracic aorta. No pn eumothorax, large pleural effusion or overt pulmonary edema. Degenerative changes of the shoulders an d spine. IMPRESSION: Cardiomegaly without acute process. ACT 112: Negative or not required by law. The above report was generated using voice recognition software. It may contain grammatical, syntax o r spelling errors. Electronically signed by: Vu Prince M.D. 06/24/2021 2:41 PM
[2021-06-24 15:07] LABS: Basophils # (auto) 0.02 K/uL (0-0.2); Basophils % (auto) 0.3 %; Eosinophils # (auto) 0.18 K/uL (0-0.5); Eosinophils % (auto) 2.4 %; Hematocrit (blood only) 39.5 % (37-47); Hemoglobin 13.2 g/dL (12.0-16.0); Immature Granulocytes # (auto) 0.02 K/uL (0.00-0.02); Immature Granulocytes % (auto) 0.3 %; Lymphocytes % (auto) 29.4 %; Mean Corpuscular Hemoglobin 31.4 pg (25-34); Mean Corpuscular Hgb Conc 33.4 g/dL (32-36); Mean Platelet Volume 11.1 fL (7.4-10.4); Monocytes # (auto) 0.61 K/uL (0.11-0.59); Monocytes % (auto) 8.2 %; Neutrophils # (auto) 4.45 K/uL (1.4-6.5); Neutrophils % (auto) 59.4 %; Platelet Count 257 K/uL (130-400); RDW Coefficient of Variation 12.8 % (11.5-14.5); White Blood Count 7.48 K/uL (4.8-10.8)
[2021-06-24 15:25] LABS: D Dimer 210 ug/L FEU (0-500)
[2021-06-24 15:31] LABS: Albumin Globulin Ratio 1.2 (0.9-2); Albumin Level 3.7 gm/dl (3.4-5.0); Bilirubin,Total 0.5 mg/dl (0.2-1.0); Calcium 9.2 mg/dl (8.5-10.1); Est GFR (Non-African American) 58.7 ml/min; Globulin 3.2 gm/dl (2.5-4.0); Magnesium 1.3 mg/dl (1.7-2.4); Potassium 3.9 mmol/L (3.5-5.1); Total Protein 6.9 gm/dl (6.0-8.3)
[2021-06-24] MEDS ORDERED: FAMOTIDINE 20MG IV PUSH 20 MG/5 ML SYR IV STA (16:01)
[2021-06-24 16:27] LABS: INR 2.7 (0.9-1.1); Prothrombin Time 27.2 Seconds (9.0-12.0)
[2021-06-24] MEDS: MAGNESIUM SULFATE / D5W 1 GM/100 ML BAG IV SCH ×2 (16:27→18:00)
--- NOTE | 2021-06-24 16:54 | History & Physical Report ---
Date of Service June 24, 2021 Assessment & Plan (1) Chest pain: Plan: History CAD S/P CABG, stent Patient is 71-year-old female with PMH CAD s/p CABG, stent, paroxysmal atrial fibrillation on Coumadin, insulin-dependent DM II, CKD III, obesity presented to ER with complaint of intermittent back pain, bilateral arm and chest pain past week with consistent CP today. Home BPs elevated In ER patient found to be hypertensive with BP 184/102. EKG without acute ST changes. Initial high-sensitivity troponin: 14. D-dimer WNL. INR 2.7 Since being in ER reports chest discomfort resolved after nitropaste and fentanyl. BP improved to 152/70. R/O ACS. Risk factors: CAD, HTN, HLD, DM. DDX: Hypertensive emergency Monitor Vitals Repeat EKG in am Will trend troponin Echo Lipid panel in am, continue statin Continue nitropaste, hold home Imdur Continue Plavix, rosuvastatin Increased metoprolol tartrate from 25 mg twice daily to 50 mg twice daily Hold home warfarin, start IV heparin N.p.o. midnight Cardiology consult Hypertensive emergency In ER BP 184/102. Nitropaste applied IV labetalol was ordered however repeat BP 152/70 and was not given Approximately 10 days ago PCP decreased metoprolol tartrate was decreased from 50 mg twice daily to 25 mg twice daily secondary to SBP's in the low 100s, amlodipine was discontinued secondary to low BP as well as BLE edema Plan to increase metoprolol tartrate back to 50 mg twice daily Continue lisinopril Nitropaste Monitor BP Hypomagnesemia Magnesium: 1.3 In ER given 2 g magnesium sulfate IV Continue home magnesium supplement Paroxysmal atrial fibrillation On warfarin Current sinus rhythm INR: 2.7 Holding warfarin and starting IV heparin Continue metoprolol tartrate, sotalol DM II A1c: 6.8 on 06/08/2021 Continue home Lantus NovoLog sliding scale per protocol HLD Continue rosuvastatin, fenofibrate, ezetimibe CKD III Cr: 0.9 Baseline ~1.0 Monitor renal functions, avoid nephrotoxic agents when possible Obesity BMI: 42 Recommend lifestyle modifications DVT Prophylaxis IV Heparin Full Code as per discussion with pt Follows with Dr Pompa for routine care Pt was seen and care coordinated with Dr Reyes. See addendum Plan: 71-year-old lady with PMH of CAD status post CABG and stent, paroxysmal A. fib on Coumadin, type II DM [insulin requiring], obesity presented to the ED / with complaint of chest pain. Per patient, her blood pressure medication were decreased last month because of her blood pressure running low at the time, since then she has been having intermittent upper back pain mostly at nights. See measures of blood pressure regularly which are occasionally in 140s [SBP] during the days but during the night when she checks her blood pressure they generally run 180s/ 80s. Today, when she had upper back pain, it radiated to her arms and chest and patient compared it being similar to her prior MT. Patient reports improvement in her chest pressure after Nitropaste in the ED. Magnesium 1.3, repleted. D-dimer WNL. Troponin x1 WNL, trend troponin. Cardiology consult. Hold Coumadin, INR 2.7, follow-up INR in a.m., can use heparin drip if INR less than 2 and procedure expected. Or else resume coumadin if procedure not expected. We will increase her metoprolol back to her prior dose, as needed blood pressure medications. Upon Exam GENERAL: Alert and oriented x3. NAD, on RA. Obese. HEENT: No pallor, no icterus. Pupils equal, round and reactive to light. Oral mucosa moist. NECK: No JVD, no neck masses. HEART: S1 and S2 heard. Regular rate and rhythm. No murmur, no gallop. RESPIRATORY SYSTEM: Normal AP diameter. No accessory muscle use. No wheezing, no crackles. ABDOMEN: Soft, bowel sounds present, nontender, no distention. CENTRAL NERVOUS SYSTEM: No facial droop. Speech is clear. Obeys simple commands. Moves extremities. EXTREMITIES: trace ble edema, no erythema seen. I have seen and examined the patient and have discussed the case with the provider above. I agree with the assessment and plan as stated. History of Present Illness Chief Complaint: chest pain Primary Care Provider: Jessica Pompa MD Patient is 71-year-old female with PMH CAD s/p CABG, stent, paroxysmal atrial fibrillation on Coumadin, insulin-dependent DM II, CKD III, obesity presented to ER with complaint of chest pain. Patient reports for the past week has been having intermittent chest pain. She reports waking up in the middle the night with pain to mid upper back that radiates to bilateral arms and mid chest. Reports she checks her BP and SBP's running in 180s at the time. Reports her heart rate is usually in the 80s when she checks her pulse at night. Has not t ried taking any nitro. Today was getting ready to go to cardiology outpatient appointment when she started having mid upper back pain radiating to bilateral arms and mid chest heaviness and presented to ER. She reports this is similar to prior MT. Denies dizziness, palpitations. Patient reports followed up with PCP 06/12/2021 and had reported SBP's in the low 100s on home BP monitor. Outpatient noted reviewed and metoprolol tartrate was decreased from 50 mg twice daily to 25 mg twice daily and her amlodipine was stopped secondary to reported lower extremity edema. Patient states since med change she has noted elevated SBPs running in the 160s-180s. She does feel she has had decreased lower extremity edema. Denies fever/chills, diaphoresis, N/V/D/C, ROBBINS, dizziness, syncope, vision changes, neck pain, SOB, orthopnea, palpitations, cough, sore throat, choking, otalgia, rhinorrhea, abdominal pain, paresthesias, weakness, extremity weakness, rashes, urinary symptoms. In ER patient found to be hypertensive with BP 184/102. EKG without acute ST changes. Since being in ER reports chest discomfort resolved after nitropaste and fentanyl. BP improved to 152/70. Allergies Allergy/AdvReac Type Severity Reaction Status Date / Time Iodinated Contrast Media Allergy Intermediate TEARS AND Verified 06/24/21 15:37 FACE BECAME VERY REDDENED oxycodone Allergy Mild itchy Verified 06/24/21 15:37 diltiazem AdvReac Unknown Unknown Verified 06/24/21 16:18 Blood-Group Specific Allergy Unknown NO BLOOD Uncoded 06/24/21 15:37 Substance PRODUCTS Home Medications Medication Instructions Recorded Confirmed Type cholecalciferol (vitamin D3) 50 2,000 unit PO QAM 02/07/18 06/24/21 History mcg (2,000 unit) capsule (Vitamin D3) multivitamin 1 tab PO QAM 02/07/18 06/24/21 History rosuvastatin 40 mg tablet 40 mg PO HS 08/09/18 06/24/21 History lisinopril 40 mg tablet 40 mg PO HS tab 09/19/18 06/24/21 History warfarin 5 mg tablet 5 mg PO HS 09/19/18 06/24/21 History ezetimibe 10 mg tablet 10 mg PO HS 04/05/19 06/24/21 History montelukast 10 mg tablet 10 mg PO DAILY tab 04/05/19 06/24/21 History (Singulair) fenofibrate 54 mg tablet 54 mg PO HS 04/24/20 06/24/21 History clopidogrel 75 mg tablet 75 mg PO QAM #30 tab 11/13/20 06/24/21 Rx isosorbide mononitrate 60 mg 60 mg PO QAM 30 Days #30 tab 01/05/21 06/24/21 Rx tablet,extended release 24 hr sotalol 80 mg tablet 40 mg PO BID 30 Days #30 tab 01/05/21 06/24/21 Rx insulin glargine 100 unit/mL (3 30 unit SQ HS #30 ml 02/27/21 06/24/21 Rx mL) subcutaneous pen (Lantus Solostar U-100 Insulin) Humalog KwikPen Insulin 100 See Rx Instructions SQ TID #30 ml 03/06/21 06/24/21 Rx unit/mL subcutaneous (insulin NS lispro) levothyroxine 125 mcg tablet 125 mcg PO QAM #90 tab 03/19/21 06/24/21 Rx acetaminophen 650 mg 650 mg PO Q12H PRN tab 04/28/21 06/24/21 History tablet,extended release (Tylenol Arthritis Pain) blood-glucose meter,continuous 04/28/21 04/28/21 History (Dexcom G6 Emergency Medicine Physician) blood-glucose sensor (Dexcom G6 04/28/21 04/28/21 History Sensor) blood-glucose transmitter (Dexcom 04/28/21 04/28/21 History G6 Transmitter) magnesium oxide 400 mg PO DAILY 04/28/21 06/24/21 History omega-3 fatty acids-fish oil 684 2 cap PO QAM cap 04/28/21 06/24/21 History mg-1,200 mg capsule,delayed release zinc 50 mg tablet 50 mg PO DAILY 04/28/21 06/24/21 History pen needle, diabetic 31 gauge x #400 ea 05/07/21 Rx 05/06" (BD Ultra-Fine Mini Pen Needle) ascorbic acid (vitamin C) 500 mg 500 mg PO DAILY 06/24/21 06/24/21 History tablet metoprolol tartrate 25 mg tablet 25 mg PO BID 06/24/21 06/24/21 History Past Med/Surg History Medical History Allergy desensitization therapy Atrial fibrillation controlled with medication Bronchitis hx CHF (congestive heart failure) Chronic kidney disease, stage III (moderate) Dr Patten Colon polyp Diabetes mellitus, type 2 IDDM Hyperlipidemia Hypertension Hypertriglyceridemia Hypothyroidism Myocardial Infarction September 2004 On anticoagulant therapy On home oxygen therapy 2lpm via n/c at HS Osteoarthritis Pyelonephritis Retinopathy Sleep apnea oxygen only at HS Transient ischemic attack (TIA) ~10 years ago Tubular adenoma of colon Vertigo hx Surgical History H/O colonoscopy History of appendectomy History of cardiac cath 2004 History of cataract surgery left History of section History of heart artery stent x2 stents (2004) STACEY Eduardo Hx of CABG x1 vessel (2004) STACEY Eduardo Family History Father Diabetes Social History Smoking Status: Never smoker Second Hand Exposure: No; Hx Alcohol Use: No Hx Substance Use: No Preferred Language: Azerbaijani Communication Ability: Effective Rope Rider Required: No Beliefs That Will Affect Care: None and Tenriism Tenriism Beliefs: jehovah witness marital status: Unknown Current Living Situation: Alone How many Children do You have: 3 Feels Safe at Home: Yes Assistive Devices: None Review of Systems Review of Systems: All systems reviewed & are unremarkable except as noted in HPI & below Physical Exam Physical Exam: General: no distress, obese Head: normocephalic, atraumatic Eyes: PERRL, EOM's intact, conjunctiva non-injected, anicteric ENT: normal inspection external ears, nose, mucous membranes moist Neck: supple, trachea midline Lungs: clear, no respiratory distress, no wheezing/rhonchi/rales CV: RRR, + murmur, no pretibial edema; chest wall without rashes, non-tender to palpation Abd: normal BS, soft, non-tender Ext: no cyanosis, no calf tenderness Neuro: A&O x 3, no focal deficits noted, normal affect Skin: warm, dry Results & Data Results & Data ([facility]) Vital Signs (Past 12 Hours) Vital Signs Temp Pulse Resp BP Pulse Ox 06/24/21 16:03 73 23 195/81 H 96 06/24/21 16:00 78 19 96 06/24/21 15:50 72 19 95 06/24/21 15:40 71 18 06/24/21 15:30 73 19 95 06/24/21 15:20 75 14 96 06/24/21 15:12 77 21 188/84 H 95 06/24/21 15:10 78 20 96 06/24/21 15:00 79 22 94 06/24/21 14:50 81 15 96 06/24/21 14:45 83 24 175/66 H 97 06/24/21 14:40 84 25 H 97 06/24/21 14:38 84 15 97 06/24/21 14:05 36.2 C L 101 H 24 184/102 H 96 Laboratory Results Short CBC 06/24/21 Range/Units 14:59 WBC 7.48 (4.8-10.8) K/uL Hgb 13.2 (12.0-16.0) g/dL Hct 39.5 (37-47) % Plt Count 257 (130-400) K/uL BMP 06/24/21 14:59 Sodium 134 L Potassium 3.9 Chloride 99 Carbon Dioxide 26 BUN 24 H Creatinine 0.96 Glucose 165 H Calcium 9.2 Liver Function 06/24/21 Range/Units 14:59 Total Bilirubin 0.5 (0.2-1.0) mg/dl AST 24 (13-39) U/L ALT 14 (7-52) U/L Alkaline Phosphatase 60 (34-104) U/L Albumin 3.7 (3.4-5.0) gm/dl Diagnostic Findings Chest X-Ray 06/24/21 14:26 XR chest 1V portable HISTORY: 71 years-old Female chest pain acute atypical chest pain COMPARISON: 01/01/2021 TECHNIQUE: Portable AP view of the chest FINDINGS: Cardiac silhouette is enlarged. Prior median sternotomy. Atherosclerosis of the thoracic aorta. No pneumothorax, large pleural effusion or overt pulmonary edema. Degenerative changes of the shoulders and spine. IMPRESSION: Cardiomegaly without acute process. ACT 112: Negative or not required by law. The above report was generated using voice recognition software. It may contain grammatical, syntax or spelling errors. Electronically signed by: Vu Prince M.D. 06/24/2021 2:41 PM ECG Rhythm: sinus rhythm Additional Comments: Incomplete RBBB, left anterior fascicular block
[2021-06-24] MEDS ORDERED: LABETALOL HCL IV 5 MG/ML 20ML IV STA (17:17)
[2021-06-24] MEDS ORDERED: Heparin IV Adult Wt-Based Standard *NO* Bolus Protocol IV SCH (18:11)
[2021-06-24] MEDS ORDERED: HEPARIN SODIUM/DEXTROSE 25,000 UNITS/500 ML BAG IV SCH (18:30)
[2021-06-24 19:14] LABS: Partial Thromboplastin Ratio 1.5; Partial Thromboplastin Time 40.5 Seconds (21.0-31.0)
[2021-06-24] MEDS ORDERED: ONDANSETRON INJ 2 MG/ML 2 ML VIAL IV PRN (20:37)
[2021-06-24] MEDS ORDERED: DEXTROSE 50% 50 ML SYRINGE IV PRN (20:37)
[2021-06-24] MEDS ORDERED: GLUCOSE 40% GEL 15 GM TUBE PO PRN (20:37)
[2021-06-24] MEDS ORDERED: GLUCAGON FOR INJ 1 MG VIAL SQ PRN (20:37)
[2021-06-24] MEDS ORDERED: CALCIUM CARBONATE 500 MG CHEWABLE TAB PO PRN (20:37)
[2021-06-24] MEDS ORDERED: GLUCOSE 10 TABS/TUBE PO PRN (20:37)
[2021-06-24] MEDS ORDERED: PHARMACY GLYCEMIC MGMT CONSULT PRN (20:37)
[2021-06-24] MEDS ORDERED: CARBOHYDRATES FOR HYPOGLYCEMIA PO PRN (20:37)
[2021-06-24] MEDS ORDERED: POLYETHYLENE (MIRALAX) 17 GM PACK PO PRN (20:37)
[2021-06-24] MEDS ORDERED: PANTOprazole 40 MG TAB PO SCH (21:00)
[2021-06-24] MEDS: INSULIN ASPART PER UNIT SC SCH (22:00)
[2021-06-24] MEDS: INSULIN GLARGINE SOLOSTAR 100 UNITS/ML 3 ML PEN SC SCH (22:01)
[2021-06-24] MEDS: ROSUVASTATIN CALCIUM 20 MG TAB PO SCH (22:04)
[2021-06-24] MEDS: SOTALOL HCL 80 MG TAB PO SCH (22:04)
[2021-06-24] MEDS: lisinopril 40 MG TAB PO SCH (22:04)
[2021-06-24] MEDS: FENOFIBRATE NANOCRYSTALLIZED 48 MG TABLET PO SCH (22:04)
[2021-06-24] MEDS: EZETIMIBE 10 MG TABLET PO SCH (22:05)
[2021-06-24] MEDS: METOPROLOL TARTRATE 50 MG TAB PO SCH (22:05)
[2021-06-24] MEDS: NITROGLYCERIN 2% OINTMENT 30GM TUBE EXT SCH (22:15)
[2021-06-24] MEDS: ACETAMINOPHEN 325 MG TAB PO PRN (22:15)
[2021-06-25 02:18] LABS: Partial Thromboplastin Ratio 1.5; Partial Thromboplastin Time 39.9 Seconds (21.0-31.0)
[2021-06-25] MEDS: NITROGLYCERIN 2% OINTMENT 30GM TUBE EXT SCH ×4 (03:39→21:52)
[2021-06-25] MEDS: LEVOTHYROXINE SODIUM 125 MCG TABLET PO SCH (06:12)
[2021-06-25] MEDS ORDERED: PERFLUTREN LIPID MICROSPHERE (DEFINITY) IV ONE (07:14)
[2021-06-25] MEDS ORDERED: Nursing to Pharmacy Communication SCH ×2 (07:45→12:15)
[2021-06-25] MEDS: MAGNESIUM OXIDE 400 MG TAB PO SCH (08:26)
[2021-06-25] MEDS: CLOPIDOGREL BISULFATE 75 MG TAB PO SCH (08:26)
[2021-06-25] MEDS: ASCORBIC ACID 500 MG TAB PO SCH (08:26)
[2021-06-25] MEDS: ISOSORBIDE MONO EXTENDED REL 60 MG TABCR PO SCH (08:26)
[2021-06-25] MEDS: MONTELUKAST SODIUM 10 MG TABLET PO SCH (08:26)
[2021-06-25] MEDS: CHOLECALCIFEROL 1,000 UNITS 25 MCG TAB PO SCH (08:26)
[2021-06-25] MEDS: SOTALOL HCL 80 MG TAB PO SCH ×2 (08:26→21:44)
[2021-06-25] MEDS: METOPROLOL TARTRATE 50 MG TAB PO SCH ×2 (08:27→21:45)
[2021-06-25] MEDS: MULTIVITAMIN TAB PO SCH (08:27)
[2021-06-25 08:34] LABS: Hematocrit (blood only) 40.6 % (37-47); Hemoglobin 13.5 g/dL (12.0-16.0); Mean Corpuscular Hgb Conc 33.3 g/dL (32-36); Mean Corpuscular Volume 96.2 fL (80-100); Mean Platelet Volume 10.9 fL (7.4-10.4); Platelet Count 237 K/uL (130-400); RDW Standard Deviation 45.2 fL (36.4-46.3); Red Blood Count 4.22 M/uL (4.2-5.4); White Blood Count 7.06 K/uL (4.8-10.8)
--- NOTE | 2021-06-25 08:41 | Pharmacy Report ---
Pharmacy Glycemic Short Note 2 - Date of Service June 25, 2021 - Glycemic Short BSG Results (Last 24 hours): 06/24/21 06/24/21 06/25/21 14:59 20:27 07:14 Glucose 165 H POC Glucose 143 H 138 H OUTPATIENT ANTIDIABETIC REGIMEN: * Lantus 30 units SQ HS * Humalog 32-40 units SQ TIDM + SSI w/ CF 30 (for BSG > 150) * HbA1c = 6.6% (04/28/21) ASSESSMENT: * 71 yo F admitted yesterday secondary to intermittent chest pain. Pharmacy has been consulted to assist with inpatient glycemic management. Patient remains NPO in case of cardiology intervention this morning given elevated troponin. * BSG in ED was 165 mg/dL. Upon transfer to floor, BSG was 143 mg/dL. Initial insulin orders entered by second shift pharmacist. Received home dose of Lantus 30 units SQ last evening + Novolog CF and CR. * Fasting BSG was 138 mg/dL this AM - well controlled. Will follow cardiology's recommendations today and adjust insulin accordingly should a diet be ordered. PLAN FOR INPATIENT GLYCEMIC CONTROL: * Basal insulin * Lantus 30 units SQ HS * Bolus insulin * NovoLog per scale ACHS or Q6hrs while NPO * Goal Range: Low 110 mg/dL - High 140 mg/dL * Correction Factor: 15 mg/dL/unit * Nutritional / Prandial insulin per carb ratio of 1 unit per 7 grams CHO consumed RECOMMENDATION FOR DISCHARGE: * HbA1c is well controlled. Most recent endocrinology visit note reviewed. BSGs well controlled with < 1% lows. Continue outpatient regimen upon discharge and follow-up with endocrinology as scheduled. Report significant/consistent hypoglycemia to their office.
[2021-06-25 08:44] LABS: INR 2.5 (0.9-1.1); Prothrombin Time 25.3 Seconds (9.0-12.0)
[2021-06-25] MEDS ORDERED: ISOSORBIDE MONO EXTENDED REL 60 MG TABCR PO SCH (09:00)
[2021-06-25 09:01] LABS: BUN Creatinine Ratio 21.2 (10-20); Chol HDL Ratio 3.1 (0-5); Creatinine Clr Calc Pharmacy 53.4 ml/min; Est GFR (African American) 65.5 ml/min; Est GFR (Non-African American) 56.5 ml/min; Magnesium 1.8 mg/dl (1.7-2.4); Potassium 4.4 mmol/L (3.5-5.1)
[2021-06-25] MEDS: INSULIN ASPART PER UNIT SC SCH ×3 (10:19→21:26)
--- NOTE | 2021-06-25 10:50 | Cardiology Consultation ---
Date of Consultation June 25, 2021 Assessment & Plan (1) NSTEMI (non-ST elevated myocardial infarction): (2) Chest pain: (3) Elevated troponin: (4) Hypertension: (5) Paroxysmal atrial fibrillation: (6) LILY (obstructive sleep apnea): Patient is a complex 71-year-old female with known coronary disease with prior coronary bypass grafting and coronary stent in 2004 receiving a saphenous vein graft to the left anterior descending. Patient underwent intervention for recurrent angina in October 2018 receiving drug-eluting stent to the proximal left anterior descending. Patient with multiple underlying medical issues including labile blood pressures , sleep apnea on nocturnal oxygen supplementation, paroxysmal atrial fibrillation on chronic anticoagulation Patient presents now with pattern consistent with crescendo angina/non-ST segment elevation myocardial infarction possibly precipitated by hypertensive urgency but with high risk features of symptoms with EKG changes elevated troponin and new wall motion abnormality on echocardiogram. Recommendations: Patient will warrant diagnostic coronary angiography Patient currently without symptoms we will plan on proceeding urgently in a.m. Vitamin K will be administered to reverse anticoagulation on warfarin. Patient will need prep for dye allergy In interim continue topical nitrates. We will continue metoprolol at 50 mg twice per day, resume amlodipine 5 mg p.o. daily Procedure discussed with patient and patient agreeable History of Present Illness Reason for Consultation: Chest pain non-ST segment elevation myocardial infarction Requesting Physician: Dr. Caballero Attending Physician: Jhonny Caballero MD History of Present Illness Patient is a 71-year-old female with complex past history which includes 1. Coronary artery disease, with history of NSTEMI in 2004 for which she underwent vein graft to LAD along with PCI to the left circumflex. a. Repeat cardiac catheterization with Dr. Hunt, s/p successful PCI of ostial LAD with a single SHELLEY, 2.5 x 12mm darian, post dilated with a 3.0 NC ( PCI by Dr Rivas), 11/12/2020 2. Obesity 3. Incomplete right bundle-branch block 4. Mitral annular calcification with stenosis 5. Diabetes , A1c 6.7% 6. Hypertension 7. Dyslipidemia, LDL goal below 70 8. CKD stage III, baseline creatinine 1.[address] Patten at [facility] [place] 9. Peripheral arterial disease, on Plavix and Coumadin 10. Chronic venous insufficiency 11. Paroxysmal atrial fibrillation, [id number] score of 5 (age, female, hypertension, CAD, diabetes), on Coumadin therapy a. Started on sotalol 12/2020 (dose 40 mg twice daily as larger doses prolonged QTC) 12. Obstructive sleep apnea, on a supplemental oxygen at night Patient presents after ER evaluation and admission yesterday evening. She notes recent changes in medications with reduction in antihypertensive therapies. Yesterday while driving to cardiology appointment developed back pain radiating to the chest and shoulders with associated shortness of breath. Patient had been aware of increasing episodes of exertional back discomfort. No overt orthopnea and weight has been trending downward. No worsening shortness of breath except for other exertion. No fevers chills or unexplained infections. No bleeding difficulties. Patient currently pain-free since hospitalization. EKG this morning demonstrates new T wave inversion anterolateral leads, troponins are elevated Echocardiogram reveals inferior and inferoseptal apical wall motion abnormality more pronounced than on prior Allergies Allergy/AdvReac Type Severity Reaction Status Date / Time Iodinated Contrast Media Allergy Intermediate TEARS AND Verified 06/24/21 15:37 FACE BECAME VERY REDDENED oxycodone Allergy Mild itchy Verified 06/24/21 15:37 diltiazem AdvReac Unknown Unknown Verified 06/24/21 16:18 Blood-Group Specific Allergy Unknown NO BLOOD Uncoded 06/24/21 15:37 Substance PRODUCTS Home Medications Medication Instructions Recorded Confirmed Type cholecalciferol (vitamin D3) 50 2,000 unit PO QAM 02/07/18 06/24/21 History mcg (2,000 unit) capsule (Vitamin D3) multivitamin 1 tab PO QAM 02/07/18 06/24/21 History rosuvastatin 40 mg tablet 40 mg PO HS 08/09/18 06/24/21 History lisinopril 40 mg tablet 40 mg PO HS tab 09/19/18 06/24/21 History warfarin 5 mg tablet 5 mg PO HS 09/19/18 06/24/21 History ezetimibe 10 mg tablet 10 mg PO HS 04/05/19 06/24/21 History montelukast 10 mg tablet 10 mg PO DAILY tab 04/05/19 06/24/21 History (Singulair) fenofibrate 54 mg tablet 54 mg PO HS 04/24/20 06/24/21 History clopidogrel 75 mg tablet 75 mg PO QAM #30 tab 11/13/20 06/24/21 Rx isosorbide mononitrate 60 mg 60 mg PO QAM 30 Days #30 tab 01/05/21 06/24/21 Rx tablet,extended release 24 hr sotalol 80 mg tablet 40 mg PO BID 30 Days #30 tab 01/05/21 06/24/21 Rx insulin glargine 100 unit/mL (3 30 unit SQ HS #30 ml 02/27/21 06/24/21 Rx mL) subcutaneous pen (Lantus Solostar U-100 Insulin) Humalog KwikPen Insulin 100 See Rx Instructions SQ TID #30 ml 03/06/21 06/24/21 Rx unit/mL subcutaneous (insulin NS lispro) levothyroxine 125 mcg tablet 125 mcg PO QAM #90 tab 03/19/21 06/24/21 Rx acetaminophen 650 mg 650 mg PO Q12H PRN tab 04/28/21 06/24/21 History tablet,extended release (Tylenol Arthritis Pain) blood-glucose meter,continuous 04/28/21 04/28/21 History (Dexcom G6 Pin Attacher) blood-glucose sensor (Dexcom G6 04/28/21 04/28/21 History Sensor) blood-glucose transmitter (Dexcom 04/28/21 04/28/21 History G6 Transmitter) magnesium oxide 400 mg PO DAILY 04/28/21 06/24/21 History omega-3 fatty acids-fish oil 684 2 cap PO QAM cap 04/28/21 06/24/21 History mg-1,200 mg capsule,delayed release zinc 50 mg tablet 50 mg PO DAILY 04/28/21 06/24/21 History pen needle, diabetic 31 gauge x #400 ea 05/07/21 Rx 05/06" (BD Ultra-Fine Mini Pen Needle) ascorbic acid (vitamin C) 500 mg 500 mg PO DAILY 06/24/21 06/24/21 History tablet metoprolol tartrate 25 mg tablet 25 mg PO BID 06/24/21 06/24/21 History Patient History Medical History Allergy desensitization therapy Atrial fibrillation controlled with medication Bronchitis hx CHF (congestive heart failure) Chronic kidney disease, stage III (moderate) Dr Patten Colon polyp Diabetes mellitus, type 2 IDDM Hyperlipidemia Hypertension Hypertriglyceridemia Hypothyroidism Myocardial Infarction September 2004 On anticoagulant therapy On home oxygen therapy 2lpm via n/c at HS Osteoarthritis Pyelonephritis Retinopathy Sleep apnea oxygen only at HS Transient ischemic attack (TIA) ~10 years ago Tubular adenoma of colon Vertigo hx Surgical History H/O colonoscopy History of appendectomy History of cardiac cath 2004 History of cataract surgery left History of section History of heart artery stent x2 stents (2004) [facility] Sigurd Hx of CABG x1 vessel (2004) Jihan Eduardo Family History Father Diabetes Social History Smoking Status: Never smoker Second Hand Exposure: No; Hx Alcohol Use: No Hx Substance Use: No Preferred Language: German Communication Ability: Effective 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 Beliefs That Will Affect Care: Druze Druze Beliefs: Jehovah Witness marital status: Unknown Current Living Situation: Alone How many Children do You have: 3 Other Information That Helps Us Care for You: No Feels Safe at Home: Yes Safety Concerns: Feels Safe At This Time Assistive Devices: Oxygen - at Night and Walker Review of Systems Review of Systems: All systems reviewed & are unremarkable except as noted in HPI & below Physical Exam Constitutional: WD/WN, vitals as above + obese; no acute distress Eyes: PERRL, conjunctivae normal, anicteric sclerae ENMT: external ear and nose normal, oropharynx normal Neck: trachea midline, no thyromegaly Respiratory: normal respiratory effort, lungs clear to auscultation Cardiovascular: Rate/Rhythm: regular rate and regular rhythm Heart Sounds: normal S1 and normal S2; no gallop and no murmur Palpation: normal PMI Vessels: normal carotid upstroke and radial pulses present; no JVD and no carotid bruit Extremities: + edema (1+) Gastrointestinal (Abdomen): normal bowel sounds, soft, nontender, no hepa tosplenomegaly Moderate sized panniculus Musculoskeletal: no cyanosis or clubbing, extremities motor strength 5/5 Skin: no rashes, warm and dry Neurologic: PERRL, EOMI, accommodation nl, no face palsy, no dysarthria Psychiatric: A+Ox3, euthymic affect Results & Data ([facility]) Vital Signs (Past 12 Hours) Vital Signs Temp Pulse Pulse Resp BP Pulse Ox 05/05/22 08:14 36.4 C L 64 20 166/82 H 98 06/25/21 02:50 36.6 C 72 16 146/71 H 99 06/24/21 23:31 36.6 C 98 H 18 112/70 98 06/24/21 23:30 36.7 C 79 18 156/79 H 99 06/24/21 23:04 85 Laboratory Results Laboratory Results - last 24 hr 06/24/21 06/24/21 06/24/21 14:59 14:59 14:59 WBC 7.48 RBC 4.20 Hgb 13.2 Hct 39.5 MCV 94.0 MCH 31.4 MCHC 33.4 RDW Std Deviation 44.0 RDW Coeff of Ree 12.8 Plt Count 257 MPV 11.1 H Immature Gran % (Auto) 0.3 Neut % (Auto) 59.4 Lymph % (Auto) 29.4 Mathews % (Auto) 8.2 Eos % (Auto) 2.4 Baso % (Auto) 0.3 Neut # (Auto) 4.45 Lymph # (Auto) 2.20 Mathews # (Auto) 0.61 H Eos # (Auto) 0.18 Baso # (Auto) 0.02 Immature Gran # (Auto) 0.02 PT INR APTT PTT Ratio D-Dimer 210 Sodium 134 L Potassium 3.9 Chloride 99 Carbon Dioxide 26 Anion Gap 9 BUN 24 H Creatinine 0.96 Est Cr Clr Drug Dosing 55.0 Est GFR ( Amer) 68.0 Est GFR (Non-Af Amer) 58.7 BUN/Creatinine Ratio 25.0 H Glucose 165 H POC Glucose Calcium 9.2 Magnesium 1.3 L Total Bilirubin 0.5 AST 24 ALT 14 Alkaline Phosphatase 60 Troponin I High Sens 14.0 Total Protein 6.9 Albumin 3.7 Globulin 3.2 Albumin/Globulin Ratio 1.2 Triglycerides Cholesterol LDL Cholesterol, Calc VLDL Cholesterol, Calc HDL Cholesterol Cholesterol/HDL Ratio Lipase 26 SARS-CoV-2, RNA, NAAT 06/24/21 06/24/21 06/24/21 14:59 14:59 18:03 WBC RBC Hgb Hct MCV MCH MCHC RDW Std Deviation RDW Coeff of Ree Plt Count MPV Immature Gran % (Auto) Neut % (Auto) Lymph % (Auto) Mathews % (Auto) Eos % (Auto) Baso % (Auto) Neut # (Auto) Lymph # (Auto) Mathews # (Auto) Eos # (Auto) Baso # (Auto) Immature Gran # (Auto) PT 27.2 H INR 2.7 H APTT 40.5 H PTT Ratio 1.5 D-Dimer Sodium Potassium Chloride Carbon Dioxide Anion Gap BUN Creatinine Est Cr Clr Drug Dosing Est GFR ( Amer) Est GFR (Non-Af Amer) BUN/Creatinine Ratio Glucose POC Glucose Calcium Magnesium Total Bilirubin AST ALT Alkaline Phosphatase Troponin I High Sens Total Protein Albumin Globulin Albumin/Globulin Ratio Triglycerides Cholesterol LDL Cholesterol, Calc VLDL Cholesterol, Calc HDL Cholesterol Cholesterol/HDL Ratio Lipase SARS-CoV-2, RNA, NAAT NEGATIVE 06/24/21 06/24/21 06/25/21 20:27 20:53 01:45 WBC RBC Hgb Hct MCV MCH MCHC RDW Std Deviation RDW Coeff of Ree Plt Count MPV Immature Gran % (Auto) Neut % (Auto) Lymph % (Auto) Mathews % (Auto) Eos % (Auto) Baso % (Auto) Neut # (Auto) Lymph # (Auto) Mathews # (Auto) Eos # (Auto) Baso # (Auto) Immature Gran # (Auto) PT INR APTT PTT Ratio D-Dimer Sodium Potassium Chloride Carbon Dioxide Anion Gap BUN Creatinine Est Cr Clr Drug Dosing Est GFR ( Amer) Est GFR (Non-Af Amer) BUN/Creatinine Ratio Glucose POC Glucose 143 H Calcium Magnesium Total Bilirubin AST ALT Alkaline Phosphatase Troponin I High Sens 367.6 H* D 323.1 H* Total Protein Albumin Globulin Albumin/Globulin Ratio Triglycerides Cholesterol LDL Cholesterol, Calc VLDL Cholesterol, Calc HDL Cholesterol Cholesterol/HDL Ratio Lipase SARS-CoV-2, RNA, NAAT 06/25/21 06/25/21 06/25/21 01:45 07:14 08:00 WBC 7.06 RBC 4.22 Hgb 13.5 Hct 40.6 MCV 96.2 MCH 32.0 MCHC 33.3 RDW Std Deviation 45.2 RDW Coeff of Ree 13.0 Plt Count 237 MPV 10.9 H Immature Gran % (Auto) Neut % (Auto) Lymph % (Auto) Mathews % (Auto) Eos % (Auto) Baso % (Auto) Neut # (Auto) Lymph # (Auto) Mathews # (Auto) Eos # (Auto) Baso # (Auto) Immature Gran # (Auto) PT INR APTT 39.9 H PTT Ratio 1.5 D-Dimer Sodium Potassium Chloride Carbon Dioxide Anion Gap BUN Creatinine Est Cr Clr Drug Dosing Est GFR ( Amer) Est GFR (Non-Af Amer) BUN/Creatinine Ratio Glucose POC Glucose 138 H Calcium Magnesium Total Bilirubin AST ALT Alkaline Phosphatase Troponin I High Sens Total Protein Albumin Globulin Albumin/Globulin Ratio Triglycerides Cholesterol LDL Cholesterol, Calc VLDL Cholesterol, Calc HDL Cholesterol Cholesterol/HDL Ratio Lipase SARS-CoV-2, RNA, NAAT 06/25/21 06/25/21 06/25/21 08:00 08:00 11:19 WBC RBC Hgb Hct MCV MCH MCHC RDW Std Deviation RDW Coeff of Ree Plt Count MPV Immature Gran % (Auto) Neut % (Auto) Lymph % (Auto) Mathews % (Auto) Eos % (Auto) Baso % (Auto) Neut # (Auto) Lymph # (Auto) Mathews # (Auto) Eos # (Auto) Baso # (Auto) Immature Gran # (Auto) PT 25.3 H INR 2.5 H APTT PTT Ratio D-Dimer Sodium 136 Potassium 4.4 Chloride 101 Carbon Dioxide 27 Anion Gap 8 BUN 21 Creatinine 0.99 Est Cr Clr Drug Dosing 53.4 Est GFR ( Amer) 65.5 Est GFR (Non-Af Amer) 56.5 BUN/Creatinine Ratio 21.2 H Glucose 171 H POC Glucose 217 H Calcium 9.0 Magnesium 1.8 Total Bilirubin AST ALT Alkaline Phosphatase Troponin I High Sens Total Protein Albumin Globulin Albumin/Globulin Ratio Triglycerides 238 H Cholesterol 118 LDL Cholesterol, Calc 32 VLDL Cholesterol, Calc 48 H HDL Cholesterol 38 Cholesterol/HDL Ratio 3.1 Lipase SARS-CoV-2, RNA, NAAT
[2021-06-25] MEDS ORDERED: amLODIPine BESYLATE 5 MG TAB PO SCH (11:45)
[2021-06-25] MEDS ORDERED: SODIUM CHLORIDE 0.9% 1000ML 1,000 ML IV SCH (11:45)
[2021-06-25] MEDS ORDERED: PHYTONADIONE 5 MG TAB PO STA (11:49)
--- NOTE | 2021-06-25 11:55 | Hospitalist Progress Note ---
Date of Service June 25, 2021 Assessment & Plan (1) Chest pain: Plan: History CAD S/P CABG, stent As per H and P: Patient is 71-year-old female with PMH CAD s/p CABG, stent, paroxysmal atrial fibrillation on Coumadin, insulin-dependent DM II, CKD III, obesity presented to ER with complaint of intermittent back pain, bilateral arm and chest pain past week with consistent CP today. Home BPs elevated Chest pain. NSTEMI R/O ACS. Risk factors: CAD, HTN, HLD, DM. DDX: Hypertensive emergency TO Continue nitropaste, Continue Plavix, rosuvastatin Increased metoprolol tartrate from 25 mg twice daily to 50 mg twice daily ECHO new wall motion abnormality troponin 367 to 333. Currently asymptomatic Plan for cardiac cath in am reversing inr with vitamin k Hypertensive emergency In ER BP 184/102. On Nitropaste Recently PCP decreased metoprolol tartrate was decreased from 50 mg twice daily to 25 mg twice daily secondary to SBP's in the low 100s, amlodipine was discontinued secondary to low BP as well as BLE edema Incresed metoprolol tartrate back to 50 mg twice daily cardio restarted amlodipine Continue lisinopril Nitropaste Better controlled will monitor Hypomagnesemia Magnesium: 1.3 replaced. TO continue home magnesium supplement Paroxysmal atrial fibrillation On warfarin Current sinus rhythm INR: 2.5 today- reversing with vitamin k for planned cardiac cath in am On metoprolol tartrate and sotalol will monitor DM II A1c: 6.8 on 06/08/2021 Will continue home Lantus NovoLog sliding scale per protocol Will monitor HLD On rosuvastatin, fenofibrate, ezetimibe CKD III Cr: 0.9 Baseline ~1.0 will f/u labs Obesity BMI: 42 Recommend lifestyle modifications DVT Prophylaxis inr 2.5 Full Code as per H and P. Close monitor in tele for now. Admission and Anticipated Discharge Date Admission Date: June 24, 2021 Subjective sitting on the chair currently no chest pain or sob afebrile was nauseous yesterday but doing ok today no headache Review of Systems Review of Systems: All systems reviewed & are unremarkable except as noted in Subjective Physical Exam Constitutional: WD/WN, vitals as above Neck: trachea midline, no thyromegaly Respiratory: normal respiratory effort, lungs clear to auscultation Cardiovascular: RRR, no murmur, no edema Gastrointestinal (Abdomen): normal bowel sounds, soft, nontender, no hepatosplenomegaly Neurologic: alert and oriented, no facial play, no dyarthria, moves exttremities Psychiatric: A+Ox3, euthymic affect Results & Data Results & Data ([facility] [place]) Vital Signs (Past 12 Hours) Vital Signs Temp Pulse Resp BP Pulse Ox 06/25/21 08:14 36.4 C L 64 20 166/82 H 98 06/25/21 02:50 36.6 C 72 16 146/71 H 99
[2021-06-25] MEDS ORDERED: INSULIN ASPART PER UNIT SC SCH (12:00)
--- NOTE | 2021-06-25 12:10 | Electrocardiogram Report ---
Test Reason : Blood Pressure : / mmHG Vent. Rate : 097 BPM Atrial Rate : 097 BPM P-R Int : 138 ms QRS Dur : 116 ms QT Int : 380 ms P-R-T Axes : 080 -55 041 degrees QTc Int : 482 ms Normal sinus rhythm Pulmonary disease pattern Incomplete right bundle branch block Left anterior fascicular block Nonspecific ST abnormality Abnormal ECG When compared with ECG of 05-JAN-2021 05:24, Nonspecific T wave abnormality no longer evident in Lateral leads Confirmed by Javier Akins ([id number]) on 06/25/2021 12:10:22 PM Referred By: REFERRED SELF Confirmed By:Javier Akins
[2021-06-25] MEDS ORDERED: INSULIN ASPART PER UNIT SC ONE (12:30)
--- NOTE | 2021-06-25 14:29 | Electrocardiogram Report ---
Test Reason : Blood Pressure : / mmHG Vent. Rate : 065 BPM Atrial Rate : 065 BPM P-R Int : 144 ms QRS Dur : 110 ms QT Int : 480 ms P-R-T Axes : 064 -50 -65 degrees QTc Int : 499 ms Normal sinus rhythm Incomplete right bundle branch block Left anterior fascicular block Prolonged QT Abnormal ECG When compared with ECG of 24-JUN-2021 14:11, (unconfirmed) Vent. rate has decreased BY 32 BPM T wave inversion now evident in Inferior leads T wave inversion now evident in Anterolateral leads Confirmed by Javier Akins ([id number]) on 06/25/2021 2:29:11 PM Referred By: REFERRED SELF Confirmed By:Javier Akins
[2021-06-25] MEDS: predniSONE 50 MG TAB PO SCH (18:16)
[2021-06-25] MEDS ORDERED: INSULIN GLARGINE SOLOSTAR 100 UNITS/ML 3 ML PEN SC ONE (21:35)
[2021-06-25] MEDS: ROSUVASTATIN CALCIUM 20 MG TAB PO SCH (21:45)
[2021-06-25] MEDS: FENOFIBRATE NANOCRYSTALLIZED 48 MG TABLET PO SCH (21:46)
[2021-06-25] MEDS: lisinopril 40 MG TAB PO SCH (21:46)
[2021-06-25] MEDS: EZETIMIBE 10 MG TABLET PO SCH (21:47)
[2021-06-25] MEDS: INSULIN GLARGINE SOLOSTAR 100 UNITS/ML 3 ML PEN SC SCH (22:19)
[2021-06-25] MEDS: ACETAMINOPHEN 325 MG TAB PO PRN (22:32)
[2021-06-25] MEDS ORDERED: NITROGLYCERIN SL 0.4 MG/TAB TAB SL STA (22:41)
[2021-06-25] MEDS ORDERED: MoRPHine SULFATE 4 MG/ML 1 ML CARP\\VIAL IV PRN (22:42)
[2021-06-25] MEDS ORDERED: traMADol HCL 50 MG TABLET PO PRN (22:42)
[2021-06-25] MEDS ORDERED: LORazepam 2 MG/1 ML VIAL IV PRN (22:48)
[2021-06-25] MEDS ORDERED: PROMETHAZINE HCL 12.5 MG in SODIUM CHLORIDE 0.9% 50 ML IV PRN (22:48)
[2021-06-25 23:39] LABS: INR 2.1 (0.9-1.1); Partial Thromboplastin Ratio 1.4; Partial Thromboplastin Time 38.7 Seconds (21.0-31.0); Prothrombin Time 21.8 Seconds (9.0-12.0)
[2021-06-26] MEDS: predniSONE 50 MG TAB PO SCH ×2 (00:04→07:57)
[2021-06-26] MEDS ORDERED: MoRPHine SULFATE 4 MG/ML 1 ML CARP\\VIAL IV STA (00:13)
[2021-06-26] MEDS: amLODIPine BESYLATE 5 MG TAB PO SCH (00:39)
--- NOTE | 2021-06-26 01:11 | Communication Note ---
Date of Service: June 26, 2021 Overnight developments 5, 1040 PM Patient complaining of 10/10 chest pain going to her arms and back, episode similar to heart attack in the past. SBP 180s as per RN. Minimal relief with nitro, oral and IV narcotic analgesic administration. Nonspecific T wave abnormalities on 2 separate EKGs. AP NSTEMI hx CAD status post CABG/stent Call heart alert if okay with [facility] concrete curer on-call. Case discussed with Dr. Pathak (concrete curer on-call) who concurs with plan. Case discussed with Dr. Rivas (credit administration manager).
[2021-06-26] MEDS ORDERED: INSULIN ASPART PER UNIT SC ONE (02:00)
[2021-06-26] MEDS ORDERED: niCARdipine HCL INJ 2.5 MG/ML 10 ML AMP ONE ×2 (02:19→14:15)
[2021-06-26] MEDS ORDERED: HEPARIN (PORCINE) 1000 UNIT/ML 10 ML (CATH LAB USE ONLY) ONE ×2 (02:19→14:15)
[2021-06-26] MEDS ORDERED: fentaNYL citrate 100 MCG/2 ML VIAL ONE ×2 (02:19→14:15)
[2021-06-26] MEDS ORDERED: MIDAZOLAM HCL 1 MG/ML 2ML VIAL ONE ×2 (02:20→14:15)
[2021-06-26] MEDS ORDERED: NITROGLYCERIN/D5W 100MCG/ML 20ML SYR ONE (02:20)
[2021-06-26] MEDS ORDERED: LIDOCAINE 1% LOCAL 20 ML VIAL ONE (02:21)
[2021-06-26] MEDS ORDERED: diphenhydrAMINE 50 MG/ML VIAL ONE ×3 (02:48→14:16)
[2021-06-26] MEDS ORDERED: FAMOTIDINE 20MG/5ML IV PUSH IV ONE (02:49)
[2021-06-26] MEDS ORDERED: NITROGLYCERIN/D5W 100 MCG/ML BTL ONE (03:31)
[2021-06-26] MEDS ORDERED: LABETALOL HCL IV 5 MG/ML 20ML (CATH LAB USE ONLY) ONE (03:40)
[2021-06-26] MEDS ORDERED: HEPARIN 25000 UNIT/500 ML D5W IV ONE (03:49)
--- NOTE | 2021-06-26 03:53 | Cardiac Catheterization ---
[facility] Data: Engineering Director Cardiac Status Clinical evaluation leading to the procedure CAD Presenation: Non STEMI Anginal Classification: CCS IV Diagnostic Physicians Name: Juan Rivas MD Closure Device Recommendations: PCI without planned CABG Cardiac Cath Procedure Full Procedure Date June 26, 2021 Pre-Procedure Diagnosis Pre-Procedure Diagnosis: Non STEMI AUC Score AUC Score: 8 Post-Procedure Diagnosis Post-Procedure Diagnosis: Severe CAD and Successful PCI Procedure(s) Performed Procedure(s) Performed: Coronary Angiography and Bypass Graft Angiography Marine Electronics Technician Juan Rivas MD Head Of Digital Advertising & Integration(s) Roberto Estimated Blood Loss Estimated Blood Loss: 15 Medication(s) Medication(s): Fentanyl, Heparin, Lidocaine 1%, Nicardipine, Nitroglycerin and Versed Summary of Findings Indication: NSTEMI Access: 6 Fr right radial artery Catheters: Anna, EBU 3.5 guide Findings: SVG to LIMAsmall but widely patent. LM -calcified, medium caliber, mild diffuse disease LAD -medium caliber vessel, stent beginning at ostium is patent with 90% in- stent restenosis at takeoff of medium jailed D1. EDMUND-3 flow. Diffuse mid segment disease up to 40%. D2 without significant disease. Competitive flow in distal LAD. Circumflex -dominant, large caliber, 30 to 40% ostial/proximal disease, mild diffuse mid segment disease. Distal stent prior to PDA widely patent. Proximal OM2 stent widely patent. RCA -not visualized, previously shown to be small, nondominant Patient hypertensive to 200s at beginning of procedure. Blood pressure improved with IV labetalol, nitro infusion. With improved blood pressure control patient chest pain-free. Arterial Closure: TR band Summary: 1. Multivessel coronary artery disease -90% proximal LAD in-stent restenosis 30 to 40% ostial/proximal circumflex Patent distal circumflex, OM 2 stents 2. Patent vein graft to distal LAD with competitive flow Recommendations: Patient has EDMUND-3 flow throughout and is chest pain-free with improved blood pressure control. Continue on nitroglycerin and heparin infusion overnight. Further discussion of revascularization options Hemodynamics Rest Ao:: 181//129 Final Ao: 183/100 LV: -- Recommendations Recommendations: PCI without planned CABG Specimens Specimens: None Radiation Exposure (mGy) 1062 Contrast (mls) 80 Anesthesia moderate [id number] Procedural Complication(s) None Disposition PCU I attest to the content of the Intraoperative Record and any orders documented therein. Any exceptions are noted below. [facility] Card Cath Procedure Codes Cardiac Catheterization Procedure 1: Cardiovascular Cath Procedures: 10969 Coronaries and Grafts/IM (venous & atrial) Moderate Sedation Procedure 1: Sedation/Anesthesia: 16604 Mod Sedation by the same physician;Init15 Min Child Age 5 & Up Procedure 2: Sedation/Anesthesia: 90329 Mod Sedation by the same physician; Ea [id number] Minutes PG Care Time/CCT Total # of Minutes Spent Total Time Spent with Patient: Total time spent is greater than 50% in coordination of care (as documented) at patient's floor/unit and/or counseling patient:
[2021-06-26] MEDS ORDERED: Heparin IV Adult Wt-Based Standard *NO* Bolus Protocol IV ONE (03:57)
[2021-06-26] MEDS ORDERED: STAT IV Infusion **Titration per Protocol STA (03:57)
[2021-06-26] MEDS: NITROGLYCERIN/D5W 100MCG/ML 250 ML IV SCH ×2 (04:00→23:53)
[2021-06-26] MEDS ORDERED: HEPARIN SODIUM/DEXTROSE 25,000 UNITS/500 ML BAG IV SCH (04:15)
[2021-06-26] MEDS: NITROGLYCERIN 2% OINTMENT 30GM TUBE EXT SCH (04:36)
[2021-06-26] MEDS ORDERED: INSULIN GLARGINE SOLOSTAR 100 UNITS/ML 3 ML PEN SC ONE (07:15)
[2021-06-26] MEDS: LEVOTHYROXINE SODIUM 125 MCG TABLET PO SCH (07:19)
[2021-06-26] MEDS ORDERED: Nursing to Pharmacy Communication SCH ×2 (07:30→17:30)
--- NOTE | 2021-06-26 07:53 | XRay Report ---
XR chest 1V portable HISTORY: Shortness of breath. COMPARISON: Chest 06/24/2021. FINDINGS: Cardiac silhouette remains top normal in size. No pleural effusions. No pneumothorax. There are dense mitral annulus calcifications and poststernotomy changes. Aortic knob calcifications are a lso noted. There are low lung volumes. No focal lung consolidations to suggest pneumonia. No evidence for pulmonary edema. IMPRESSION: No significant change compared to the prior study. No acute process. ACT 112: Negative or not required by law. Electronically signed by: Kannan Chance M.D. 06/26/2021 7:51 AM
[2021-06-26] MEDS: INSULIN ASPART PER UNIT SC SCH ×4 (08:01→21:06)
[2021-06-26] MEDS: ASCORBIC ACID 500 MG TAB PO SCH (08:02)
[2021-06-26] MEDS: CHOLECALCIFEROL 1,000 UNITS 25 MCG TAB PO SCH (08:02)
[2021-06-26] MEDS: MAGNESIUM OXIDE 400 MG TAB PO SCH (08:02)
[2021-06-26] MEDS: MONTELUKAST SODIUM 10 MG TABLET PO SCH (08:02)
[2021-06-26] MEDS: MULTIVITAMIN TAB PO SCH (08:03)
[2021-06-26] MEDS: CLOPIDOGREL BISULFATE 75 MG TAB PO SCH (08:04)
[2021-06-26] MEDS: ISOSORBIDE MONO EXTENDED REL 60 MG TABCR PO SCH (08:04)
[2021-06-26] MEDS: SOTALOL HCL 80 MG TAB PO SCH ×2 (08:04→21:05)
[2021-06-26] MEDS: METOPROLOL TARTRATE 50 MG TAB PO SCH ×2 (08:04→21:05)
[2021-06-26] MEDS ORDERED: diphenhydrAMINE Capsule 25 MG CAP PO SCH (09:00)
--- NOTE | 2021-06-26 09:58 | Hospitalist Progress Note ---
Date of Service June 26, 2021 Assessment & Plan (1) Chest pain: Plan: 71-year-old female with PMH CAD s/p CABG, stent, paroxysmal atrial fibrillation on Coumadin, insulin-dependent DM II, CKD III, obesity presented to ER with complaint of intermittent back pain, bilateral arm and chest pain past week with Chest pain NSTEMI Risk factors: CAD, HTN, HLD, DM. Elevated troponin HS [increased from 14-367] Echocardiogram showed EF of 55 to 60%, grade 2 diastolic dysfunction and apical inferior and inferoseptal watt are severely hypokinetic, moderate to severe mitral annular calcification, mild MR, RV systolic pressure mildly elevated at 35 to 40 mmHg Status post left heart cath earlier this morning which showed multivessel coronary artery disease with 90% proximal LAD in-stent restenosis, 30-40% ostial/proximal circumflex and patent distal circumflex OM 2 stents Continue Plavix and heparin drip. INR was reversed for left heart cath Plan to go back for left heart catheterization today. Discussed with electrician research Continue rosuvastatin Continue metoprolol titrate 50 mg twice daily Continue nitro drip for better blood pressure control Hypertensive emergency In ER BP 184/102. On Nitropaste Recently PCP decreased metoprolol tartrate from 50 mg twice daily to 25 mg twice daily secondary to SBP's in the low 100s, amlodipine was discontinued secondary to low BP as well as BLE edema Increased metoprolol tartrate back to 50 mg twice daily Cardio restarted amlodipine Continue lisinopril Continue nitro drip and titrate as per cardiology Hypomagnesemia Magnesium was 1.3 REpleted Monitor Paroxysmal atrial fibrillation On warfarin Current sinus rhythm INR was reversed for Cath Warfarin on hold. On metoprolol tartrate and sotalol Monitor DM II A1c: 6.8 on 06/08/2021 Will continue home Lantus NovoLog sliding scale per protocol Will monitor HLD On rosuvastatin, fenofibrate, ezetimibe CKD III Baseline ~1.0 Follow up labs Obesity BMI: 42 Recommend lifestyle modifications DVT Prophylaxis On heparin drip. Warfarin on hold Admission and Anticipated Discharge Date Admission Date: June 24, 2021 Subjective Patient seen and examined. Reports feeling tired and sleepy. Had cardiac catheterization on 3 AM today Denies any chest pain at this time. Denies any shortness of breath at rest. Reports cough, mostly dry Denies any nausea, vomiting, abdominal pain, diarrhea, constipation Denies dysuria, frequency, urgency Denies fevers or chills Physical Exam Constitutional: + well hydrated and + obese; no acute distress Eyes: PERRL, conjunctivae normal, anicteric sclerae ENMT: external ear and nose normal, oropharynx normal Respiratory: normal respiratory effort, lungs clear to auscultation Cardiovascular: Rate/Rhythm: regular rate and regular rhythm S1-S2 Gastrointestinal (Abdomen): normal bowel sounds, soft, nontender, no hepatosplenomegaly Musculoskeletal: Pedal edema Neurologic: PERRL, EOMI, accommodation nl, no face palsy, no dysarthria Psychiatric: A+Ox3, euthymic affect Results & Data Results & Data ([facility]) Vital Signs (Past 12 Hours) Vital Signs Temp Pulse Pulse Pulse Resp BP BP 06/26/21 09:31 189/102 H 06/26/21 09:08 177/89 H 06/26/21 08:11 36.4 C L 87 20 147/79 H 06/26/21 07:10 89 20 151/82 H 06/26/21 06:05 87 129/76 06/26/21 05:36 87 18 134/76 06/26/21 05:15 88 18 136/77 06/26/21 05:00 88 18 128/80 06/26/21 04:48 75 18 142/69 H 06/26/21 04:35 92 H 18 145/84 H 06/26/21 04:21 06/26/21 04:19 94 H 18 157/83 H 06/26/21 01:03 95 H 18 184/108 H 176/89 H 06/26/21 00:33 93 H 18 159/80 H 06/26/21 00:08 93 H 18 178/108 H 184/84 H 06/25/21 23:49 89 18 185/95 H 06/25/21 23:04 84 149/78 H 06/25/21 22:35 89 18 183/94 H 183/83 H 06/25/21 22:17 87 Pulse Ox 06/26/21 09:31 06/26/21 09:08 06/26/21 08:11 99 06/26/21 07:10 100 06/26/21 06:05 100 06/26/21 05:36 99 06/26/21 05:15 98 05/06/22 05:00 97 06/26/21 04:48 99 06/26/21 04:35 97 06/26/21 04:21 100 06/26/21 04:19 100 06/26/21 01:03 99 06/26/21 00:33 96 06/26/21 00:08 98 06/25/21 23:49 100 06/25/21 23:04 06/25/21 22:35 94 06/25/21 22:17 Laboratory Results Abnormal lab results 06/25/21 06/25/21 06/25/21 Range/Units 16:07 20:32 22:55 PT (9.0-12.0) Seconds INR (0.9-1.1) APTT (21.0-31.0) Seconds POC Glucose 139 H 135 H (70-99) mg/dl Troponin I High Sens 89.8 H* D (0-14) pg/ml 06/25/21 06/26/21 06/26/21 Range/Units 22:55 01:47 07:27 PT 21.8 H (9.0-12.0) Seconds INR 2.1 H (0.9-1.1) APTT 38.7 H (21.0-31.0) Seconds POC Glucose 253 H 241 H (70-99) mg/dl Troponin I High Sens (0-14) pg/ml 06/26/21 Range/Units 09:53 PT (9.0-12.0) Seconds INR (0.9-1.1) APTT > 139.0 H* (21.0-31.0) Seconds POC Glucose (70-99) mg/dl Troponin I High Sens (0-14) pg/ml
--- NOTE | 2021-06-26 10:54 | Cardiology Progress Note ---
Date of Service June 26, 2021 Assessment & Plan (1) NSTEMI (non-ST elevated myocardial infarction): (2) Chest pain: (3) Elevated troponin: (4) Hypertension: (5) Paroxysmal atrial fibrillation: (6) LILY (obstructive sleep apnea): Plan: Patient is a complex 71-year-old female with known coronary disease with prior coronary bypass grafting and coronary stent in 2004 receiving a saphenous vein graft to the left anterior descending. Patient underwent intervention for recurrent angina in October 2018 receiving drug-eluting stent to the proximal left anterior descending. Patient with multiple underlying medical issues including labile blood pressures , sleep apnea on nocturnal oxygen supplementation, paroxysmal atrial fibrillation on chronic anticoagulation Patient presents now with pattern consistent with crescendo angina/non-ST segment elevation myocardial infarction possibly precipitated by hypertensive urgency but with high risk features of symptoms with EKG changes elevated troponin and new wall motion abnormality on echocardiogram. Patient had acceleration of symptoms early a.m. 06/26/2021 and coronary angiography demonstrated high-grade proximal stenosis of the left anterior descending at prior stent Currently without symptoms with plans for coronary intervention later today. After discussion with by myself with patient this morning she is agreeable and wishes to proceed. We will increase nitrate infusion for blood pressure control in the interim Admission and Anticipated Discharge Date Admission Date: June 24, 2021 Subjective Patient seen and examined, chart, medications, telemetry reviewed. Events of last night early this morning noted. Patient developed symptoms consistent with presenting complaints of chest pain back pain and diaphoresis. Taken urgently to the cardiac catheterization lab were study demonstrated high- grade proximal LAD lesion in-stent restenosis. Patient symptoms and hemodynamic stability assured with medical therapies. With anticipated likely need for further intervention today. Currently without chest pain or discomfort. Blood pressures are trending higher. Blood sugars up after steroid prep. No fevers chills. No edema. No arrhythmia Review of Systems Review of Systems: All systems reviewed & are unremarkable except as noted in Subjective Physical Exam Constitutional: + obese; no acute distress Eyes: PERRL, conjunctivae normal, anicteric sclerae ENMT: external ear and nose normal, oropharynx normal Neck: trachea midline, no thyromegaly Respiratory: normal respiratory effort, lungs clear to auscultation Cardiovascular: Rate/Rhythm: regular rate and regular rhythm Heart Sounds: normal S1 and normal S2; no gallop and no murmur Palpation: normal PMI Vessels: normal carotid upstroke and radial pulses present; no JVD and no carotid bruit Extremities: + edema (1+) Gastrointestinal (Abdomen): normal bowel sounds, soft, nontender, no hepatosplenomegaly Musculoskeletal: no cyanosis or clubbing, extremities motor strength 5/5 Skin: no rashes, warm and dry Neurologic: PERRL, EOMI, accommodation nl, no face palsy, no dysarthria Psychiatric: A+Ox3, euthymic affect Results & Data ([facility]) Vital Signs (Past 12 Hours) Vital Signs Temp Pulse Pulse Resp BP BP Pulse Ox 06/26/21 10:21 215/96 H 06/26/21 09:31 189/102 H 06/26/21 09:08 177/89 H 06/26/21 08:11 36.4 C L 87 20 147/79 H 99 06/26/21 07:10 89 20 151/82 H 100 06/26/21 06:05 87 129/76 100 06/26/21 05:36 87 18 134/76 99 06/26/21 05:15 88 18 136/77 98 06/26/21 05:00 88 18 128/80 97 06/26/21 04:48 75 18 142/69 H 99 06/26/21 04:35 92 H 18 145/84 H 97 06/26/21 04:21 100 06/26/21 04:19 94 H 18 157/83 H 100 06/26/21 01:03 95 H 18 184/108 H 176/89 H 99 06/26/21 00:33 93 H 18 159/80 H 96 06/26/21 00:08 93 H 18 178/108 H 184/84 H 98 06/25/21 23:49 89 18 185/95 H 100 06/25/21 23:04 84 149/78 H Laboratory Results Laboratory Results - last 24 hr 06/25/21 06/25/21 06/25/21 11:19 16:07 20:32 PT INR APTT PTT Ratio POC Glucose 217 H 139 H 135 H Troponin I High Sens 06/25/21 06/25/21 06/26/21 22:55 22:55 01:47 PT 21.8 H INR 2.1 H APTT 38.7 H PTT Ratio 1.4 POC Glucose 253 H Troponin I High Sens 89.8 H* D 06/26/21 06/26/21 07:27 09:53 PT INR APTT > 139.0 H* PTT Ratio > 5.1 POC Glucose 241 H Troponin I High Sens (1) Hypertension Hypertension type: primary hypertension Qualified Code(s): I10 - Essential (primary) hypertension
[2021-06-26 10:58] LABS: Partial Thromboplastin Ratio > 5.1
[2021-06-26 11:00] LABS: Partial Thromboplastin Time > 139.0 Seconds (21.0-31.0)
[2021-06-26 13:52] LABS: Partial Thromboplastin Ratio 4.3
[2021-06-26] MEDS ORDERED: FAMOTIDINE 20 MG in SYRINGE 3 ML IV ONE (14:07)
--- NOTE | 2021-06-26 14:14 | Pre Anesthesia Assessment ---
Date of Service June 26, 2021 Pre Sedation Assessment Vital Signs Temp Pulse Pulse Pulse Resp BP BP 06/26/21 14:02 65 16 171/92 H 06/26/21 12:28 70 151/67 H 06/26/21 11:45 97.5 F L 75 20 164/100 H 06/26/21 10:21 215/96 H 06/26/21 09:31 189/102 H 06/26/21 09:08 177/89 H 06/26/21 08:11 97.5 F L 87 20 147/79 H 06/26/21 07:10 89 20 151/82 H 06/26/21 06:05 87 129/76 06/26/21 05:36 87 18 134/76 06/26/21 05:15 88 18 136/77 06/26/21 05:00 88 18 128/80 06/26/21 04:48 75 18 142/69 H 06/26/21 04:35 92 H 18 145/84 H 06/26/21 04:21 06/26/21 04:19 94 H 18 157/83 H 06/26/21 01:03 95 H 18 184/108 H 176/89 H 06/26/21 00:33 93 H 18 159/80 H 06/26/21 00:08 93 H 18 178/108 H 184/84 H 06/25/21 23:49 89 18 185/95 H 06/25/21 23:04 84 149/78 H 06/25/21 22:35 89 18 183/94 H 183/83 H 06/25/21 22:17 87 06/25/21 21:42 72 151/72 H 06/25/21 19:55 97.7 F 65 18 166/73 H 06/25/21 16:22 98.2 F 64 20 152/71 H Pulse Ox 06/26/21 14:02 98 06/26/21 12:28 06/26/21 11:45 96 06/26/21 10:21 06/26/21 09:31 06/26/21 09:08 06/26/21 08:11 99 06/26/21 07:10 100 06/26/21 06:05 100 06/26/21 05:36 99 06/26/21 05:15 98 06/26/21 05:00 97 06/26/21 04:48 99 06/26/21 04:35 97 06/26/21 04:21 100 06/26/21 04:19 100 06/26/21 01:03 99 06/26/21 00:33 96 06/26/21 00:08 98 06/25/21 23:49 100 06/25/21 23:04 06/25/21 22:35 94 06/25/21 22:17 06/25/21 21:42 06/25/21 19:55 98 06/25/21 16:22 95 Cardiovascular RRR, no murmur, no edema Respiratory normal respiratory effort, lungs clear to auscultation Pre-Sedation Airway Assessment Smoking Status: Never smoker Hx Sleep Apnea: No Hx Difficult Intubation: No Short, Thick Neck: Yes Thyromental Distance: > or= 3.5 Finger Breadths Oral Cavity: + Dentures Mallampati Class: III ASA: ASA3 NPO Status Date of Last Intake of Fluids: 06/25/21 Time of Last Intake of Fluids: 20:00 Date of Last Intake of Solid Food: 06/25/21 Time of Last Intake of Solid Foods: 20:00 Procedure Planning Contraindications for Sedation: none Current Medications Reviewed: Yes Notes The planned sedation has been discussed with the patient. Informed Consent was obtained. I have identified the patient, determined the appropriateness of sedation and have assessed the patient immediately prior to the procedure. All medicine(s) and interventions are by my order.
[2021-06-26] MEDS ORDERED: methylPREDNISolone 125 MG/2 ML VIAL ONE (14:16)
--- NOTE | 2021-06-26 14:54 | Pharmacy Report ---
Pharmacy Glycemic Short Note 2 - Date of Service June 26, 2021 - Glycemic Short BSG Results (Last 24 hours): 06/25/21 06/25/21 06/26/21 16:07 20:32 01:47 Glucose POC Glucose 139 H 135 H 253 H 06/26/21 06/26/21 06/26/21 07:27 12:00 13:03 Glucose Cancelled POC Glucose 241 H 220 H OUTPATIENT ANTIDIABETIC REGIMEN: * Lantus 30 units SQ HS * Humalog 32-40 units SQ TIDM + SSI w/ CF 30 (for BSG > 150) * HbA1c = 6.6% (04/28/21) ASSESSMENT: 06/26/21: * Reduced dose of Lantus was given last evening for NPO p midnight. * BSGs have been elevated today partially d/t basal insulin deficiency. Pt was also ordered 3 doses of Prednisone 50mg, which she received ~q6h from last evening until this morning, prior to procedure. This is also contributing to steroid-induced hyperglycemia. * Supplemental dose of Lantus given this morning, then will resume previous dose. * Anticipate that BSGs will begin to improve as the effects of steroids wear off. * Pharmacy will continue to follow and adjust regimen as indicated. 06/25 * 71 yo F admitted yesterday secondary to intermittent chest pain. Pharmacy has been consulted to assist with inpatient glycemic management. Patient remains NPO in case of cardiology intervention this morning given elevated troponin. * BSG in ED was 165 mg/dL. Upon transfer to floor, BSG was 143 mg/dL. Initial insulin orders entered by second shift pharmacist. Received home dose of Lantus 30 units SQ last evening + Novolog CF and CR. * Fasting BSG was 138 mg/dL this AM - well controlled. Will follow cardiology's recommendations today and adjust insulin accordingly should a diet be ordered. PLAN FOR INPATIENT GLYCEMIC CONTROL: * Basal insulin * Lantus 10 units SQ x1 dose this morning * Lantus 30 units SQ HS * Bolus insulin * NovoLog per scale ACHS or Q6hrs while NPO * Goal Range: Low 110 mg/dL - High 140 mg/dL * Correction Factor: 15 mg/dL/unit * Nutritional / Prandial insulin per carb ratio of 1 unit per 7 grams CHO consumed RECOMMENDATION FOR DISCHARGE: * HbA1c is well controlled. Most recent endocrinology visit note reviewed. BSGs well controlled with < 1% lows. Continue outpatient regimen upon discharge and follow-up with endocrinology as scheduled. Report significant/consistent hypoglycemia to their office.
[2021-06-26 15:11] LABS: Partial Thromboplastin Time 117.3 Seconds (21.0-31.0)
--- NOTE | 2021-06-26 16:00 | Post Anesthesia Assessment ---
Date of Service June 26, 2021 Post Sedation Assessment Vital Signs Temp Pulse Pulse Pulse Resp BP BP 06/26/21 14:02 65 16 171/92 H 06/26/21 12:28 70 151/67 H 06/26/21 11:45 97.5 F L 75 20 164/100 H 06/26/21 10:21 215/96 H 06/26/21 09:31 189/102 H 06/26/21 09:08 177/89 H 06/26/21 08:11 97.5 F L 87 20 147/79 H 06/26/21 07:10 89 20 151/82 H 06/26/21 06:05 87 129/76 06/26/21 05:36 87 18 134/76 06/26/21 05:15 88 18 136/77 06/26/21 05:00 88 18 128/80 06/26/21 04:48 75 18 142/69 H 06/26/21 04:35 92 H 18 145/84 H 06/26/21 04:21 06/26/21 04:19 94 H 18 157/83 H 06/26/21 01:03 95 H 18 184/108 H 176/89 H 06/26/21 00:33 93 H 18 159/80 H 06/26/21 00:08 93 H 18 178/108 H 184/84 H 06/25/21 23:49 89 18 185/95 H 06/25/21 23:04 84 149/78 H 06/25/21 22:35 89 18 183/94 H 183/83 H 06/25/21 22:17 87 06/25/21 21:42 72 151/72 H 06/25/21 19:55 97.7 F 65 18 166/73 H 06/25/21 16:22 98.2 F 64 20 152/71 H Pulse Ox 06/26/21 14:02 98 06/26/21 12:28 06/26/21 11:45 96 06/26/21 10:21 06/26/21 09:31 06/26/21 09:08 06/26/21 08:11 99 06/26/21 07:10 100 06/26/21 06:05 100 06/26/21 05:36 99 06/26/21 05:15 98 06/26/21 05:00 97 06/26/21 04:48 99 06/26/21 04:35 97 06/26/21 04:21 100 06/26/21 04:19 100 06/26/21 01:03 99 06/26/21 00:33 96 06/26/21 00:08 98 06/25/21 23:49 100 06/25/21 23:04 06/25/21 22:35 94 06/25/21 22:17 06/25/21 21:42 06/25/21 19:55 98 06/25/21 16:22 95 Recovery Score Activity: Moves 4 extremities Respiration: Deep Breath/Cough Circulation: +/-20% PreAnes Value Consciousness: Fully Awake Oxygen Saturation: O2 needed for >90% Discharge Sedation Level of Care: Fast Track Phase II Post Sedation Plan On clinical assessment, the patient appears to have tolerated the sedation without complications. Patient is recovering as anticipated. Patient will continue to be monitored by nursing and may be discharged when sedation discharge criteria are met per below protocol. Upon Completions of procedure up to 15 minutes continue every 5 minute vital signs and the P.A.R. score; then discharge to a Phase I or Fast Track to Phase II per the following guidelines: * Discharge Patient to appropriate Phase II area if PAR is 8 or greater or return to pre- procedure baseline. The post - procedure orders will be as directed. * If PAR score is less than 8 or not return to pre-procedure baseline then patient will follow Phase I monitoring till PAR is reached for Phase II. The Phase I may be done in procedure room or may call to secure a Phase I area. * If naloxone or flumazenil are used for reversal, hold in Phase I for continued monitoring from when last reversal dose was given for a minimum of 60 minutes or longer pending the nurse and/or physician discretion of patient condition before discharge to Phase II. Please call the Sedation Physician to re-evaluate and complete post-note for discharge to Phase II area. Do NOT discharge from procedure sedation or Phase 1 until post- sedation evaluation note is complete by procedure /sedation MD Sedation Discharge Instructions to be given to the patient at discharge to home.
[2021-06-26] MEDS ORDERED: SODIUM CHLORIDE 0.9% 1000ML 1,000 ML IV SCH ×2 (16:15)
--- NOTE | 2021-06-26 16:16 | Cardiac Catheterization ---
ACC Data: B[facility] Mason Cardiac Status Clinical evaluation leading to the procedure CAD Presenation: Non STEMI Anginal Classification: CCS IV Diagnostic Physicians Name: Juan Rivas MD Closure Device Recommendations: PCI without planned CABG Cardiac Cath Procedure Full Procedure Date June 26, 2021 Pre-Procedure Diagnosis Pre-Procedure Diagnosis: Non STEMI AUC Score AUC Score: 8 Post-Procedure Diagnosis Post-Procedure Diagnosis: Severe CAD and Successful PCI Procedure(s) Performed Procedure(s) Performed: Coronary Angiography, Drug Eluting Stent, Ultrasound Guided Vascular Access and IVUS Drilling Rig Operator Juan Rivas MD Mechanical Assembly(s) Tire Debeader Estimated Blood Loss Estimated Blood Loss: 15 Medication(s) Medication(s): Clopidogrel, Fentanyl, Heparin, Lidocaine 1%, Nicardipine, Nitroglycerin and Versed Summary of Findings Indication: NSTEMI Access: 6 Fr right radial artery under ultrasound guidance Catheters: EBU 3.5 guide Findings: For full details of patient's coronary angiography please see cath report dictated from overnight 06/26/2021. Briefly, patient found to have severe proximal LAD in-stent restenosis. At that time EDMUND-3 flow, chest pain-free with improved blood pressure control. Brought back currently for PCI and more definitive management of LAD stenosis. -- PCI -- Antithrombotic therapy: Heparin, clopidogrel Procedure: Left main cannulated with EBU 3.5 guide Pre-procedure flow EDMUND 2 BMW wire placed into circumflex Retail General Manager 50 wire passed across ostial LAD lesion into distal vessel [facility] IVUS catheter navigated to proximal LAD. Pullback revealed severe in- stent restenosis. Heavily calcified ostial LAD, distal left main. Moderate distal left main disease. Circumferential ostial left main disease (8.9 mm CSA). Proximal LAD lesion predilated with 2.5 compliant balloon Second agricultural pilot 50 wire navigated into jailed first diagonal Proximal LAD stent postdilated with 3.0 NC Ostial/proximal diagonal dilated with 2.0 and 2.5 balloons through stent struts Ostial LAD in-stent restenosis stented with 2.75 x 8 mm Xience drug-eluting stent Stent post-dilated with 3.0 noncompliant balloon IC vasodilators administered for spasm Post procedure EDMUND 3 flow, stent well expanded with minimal residual stenosis. Jailed diagonal expanded with EDMUND-3 flow. No apparent circumflex compromise. Arterial Closure: TR band Summary: 1. Successful PCI of ostial LAD in-stent restenosis with single drug-eluting marva nt (2.75 x 8 mm Xience; postdilated with 3.0 NC). 2. Angioplasty of proximal jailed first diagonal with 2.5 balloon 3. Residual moderate, heavily calcified distal left main, ostial circumflex disease. Recommendations: To PCU for continued monitoring Continue triple therapy with aspirin, clopidogrel, anticoagulation while hospitalized. Long-term discharge on dual therapy with anticoagulation, clopidogrel. Continue statin, and ASCVD risk factor modification Consult cardiac Rehab Medical management of residual CAD. If recurrent LAD restenosis consider complex ostial LAD/circumflex stenting versus redo CABG. Hemodynamics Rest Ao:: 156/63/106 Final Ao: 144/66/99 LV: -- Recommendations Recommendations: PCI without planned CABG Specimens Specimens: None Radiation Exposure (mGy) 399 Contrast (mls) 105 Anesthesia moderate [id number] Procedural Complication(s) None Disposition PCU I attest to the content of the Intraoperative Record and any orders documented therein. Any exceptions are noted below. [facility] Card Cath Procedure Codes Therapeutic Services & Ancillary Proc Procedure 1: Cardiovascular Tx and Anc Procedures: 45228 IV Ultrasound (Coronary or Graft) Procedure 2: Cardiovascular Tx and Anc Procedures: 97476 Ultrasonic Guidance Vascular Access Moderate Sedation Procedure 1: Sedation/Anesthesia: 73328 Mod Sedation by the same physician;Init15 Min Child Age 5 & Up Procedure 2: Sedation/Anesthesia: 20762 Mod Sedation by the same physician; Ea [id number] Minutes Stenting Procedure 1: Cardiovascular Stent Procedures: 15966 Perc transcatheter placement of intracoronary stent(s), with ang PG Care Time/CCT Total # of Minutes Spent Total Time Spent with Patient: Total time spent is greater than 50% in coordination of care (as documented) at patient's floor/unit and/or counseling patient:
[2021-06-26 17:54] LABS: Anion Gap 9 (3-11); BUN Creatinine Ratio 22.1 (10-20); Blood Urea Nitrogen 21 mg/dl (6-23); Calcium 8.8 mg/dl (8.5-10.1); Carbon Dioxide 24 mmol/L (21-32); Chloride 100 mmol/L (98-107); Creatinine Clr Calc Pharmacy 55.5 ml/min; Est GFR (African American) 68.9 ml/min; Est GFR (Non-African American) 59.4 ml/min; Glucose 241 mg/dl (70-99(Fasting)); Sodium 133 mmol/L (136-145)
[2021-06-26] MEDS ORDERED: INSULIN GLARGINE SOLOSTAR 100 UNITS/ML 3 ML PEN SC SCH (21:00)
[2021-06-26] MEDS: lisinopril 40 MG TAB PO SCH (21:05)
[2021-06-26] MEDS: EZETIMIBE 10 MG TABLET PO SCH (21:05)
[2021-06-26] MEDS: ROSUVASTATIN CALCIUM 20 MG TAB PO SCH (21:05)
[2021-06-26] MEDS: FENOFIBRATE NANOCRYSTALLIZED 48 MG TABLET PO SCH (21:05)
[2021-06-27] MEDS ORDERED: INSULIN ASPART PER UNIT SC SCH
[2021-06-27] MEDS: LEVOTHYROXINE SODIUM 125 MCG TABLET PO SCH (05:52)
[2021-06-27 07:34] LABS: Mean Corpuscular Hemoglobin 31.3 pg (25-34); Mean Corpuscular Hgb Conc 33.3 g/dL (32-36); Mean Corpuscular Volume 93.8 fL (80-100); Platelet Count 194 K/uL (130-400); RDW Standard Deviation 44.1 fL (36.4-46.3); Red Blood Count 3.84 M/uL (4.2-5.4); White Blood Count 14.69 K/uL (4.8-10.8)
--- NOTE | 2021-06-27 07:34 | Electrocardiogram Report ---
Test Reason : Blood Pressure : / mmHG Vent. Rate : 093 BPM Atrial Rate : 093 BPM P-R Int : 158 ms QRS Dur : 112 ms QT Int : 388 ms P-R-T Axes : 079 -60 051 degrees QTc Int : 482 ms Normal sinus rhythm Incomplete right bundle branch block Left axis deviation Prolonged QT Abnormal ECG When compared with ECG of 25-JUN-2021 06:22, T wave inversion no longer evident in Inferior leads Confirmed by Javier Akins ([id number]) on 06/27/2021 7:34:01 AM Referred By: REFERRED SELF Confirmed By:Javier Akins
--- NOTE | 2021-06-27 07:35 | Electrocardiogram Report ---
Test Reason : Blood Pressure : / mmHG Vent. Rate : 092 BPM Atrial Rate : 092 BPM P-R Int : 146 ms QRS Dur : 118 ms QT Int : 390 ms P-R-T Axes : 070 -57 033 degrees QTc Int : 482 ms Normal sinus rhythm Left axis deviation Non-specific intra-ventricular conduction delay Nonspecific ST and T wave abnormality Abnormal ECG When compared with ECG of 25-JUN-2021 22:52, (unconfirmed) No significant change Confirmed by Javier Akins ([id number]) on 06/27/2021 7:35:02 AM Referred By: REFERRED SELF Confirmed By:Javier Akins
[2021-06-27 07:59] LABS: BUN Creatinine Ratio 24.2 (10-20); Calcium 8.2 mg/dl (8.5-10.1); Creatinine Clr Calc Pharmacy 41.2 ml/min; Est GFR (Non-African American) 41.4 ml/min; Magnesium 1.6 mg/dl (1.7-2.4); Phosphorus 3.6 mg/dl (2.5-4.9); Potassium 4.8 mmol/L (3.5-5.1)
[2021-06-27] MEDS ORDERED: INSULIN GLARGINE SOLOSTAR 100 UNITS/ML 3 ML PEN SC ONE (08:00)
[2021-06-27] MEDS: INSULIN ASPART PER UNIT SC SCH ×4 (08:38→21:09)
[2021-06-27] MEDS: METOPROLOL TARTRATE 50 MG TAB PO SCH ×2 (08:40→20:40)
[2021-06-27] MEDS: SOTALOL HCL 80 MG TAB PO SCH ×2 (08:40→20:39)
[2021-06-27] MEDS: MULTIVITAMIN TAB PO SCH (08:40)
[2021-06-27] MEDS: MONTELUKAST SODIUM 10 MG TABLET PO SCH (08:40)
[2021-06-27] MEDS: CHOLECALCIFEROL 1,000 UNITS 25 MCG TAB PO SCH (08:41)
[2021-06-27] MEDS: CLOPIDOGREL BISULFATE 75 MG TAB PO SCH (08:41)
[2021-06-27] MEDS: amLODIPine BESYLATE 5 MG TAB PO SCH (08:42)
[2021-06-27] MEDS: MAGNESIUM OXIDE 400 MG TAB PO SCH (08:42)
[2021-06-27] MEDS: ASCORBIC ACID 500 MG TAB PO SCH (08:42)
[2021-06-27] MEDS: ASPIRIN 81 MG ECTAB PO SCH (08:43)
[2021-06-27] MEDS: ISOSORBIDE MONO EXTENDED REL 60 MG TABCR PO SCH (08:43)
[2021-06-27 09:12] LABS: INR 1.2 (0.9-1.1); Prothrombin Time 12.6 Seconds (9.0-12.0)
--- NOTE | 2021-06-27 10:02 | Pharmacy Report ---
Pharmacy Glycemic Short Note 2 - Date of Service June 27, 2021 - Glycemic Short BSG Results (Last 24 hours): 06/26/21 06/26/21 06/26/21 12:00 13:03 16:44 Glucose Cancelled POC Glucose 220 H 234 H 06/26/21 06/26/21 06/26/21 16:46 20:01 20:02 Glucose 241 H POC Glucose 300 H 330 H* 06/26/21 06/27/21 06/27/21 23:00 00:08 06:55 Glucose 254 H POC Glucose 221 H 195 H 06/27/21 07:11 Glucose POC Glucose 275 H OUTPATIENT ANTIDIABETIC REGIMEN: * Lantus 30 units SQ HS * Humalog 32-40 units SQ TIDM + SSI w/ CF 30 (for BSG > 150) * HbA1c = 6.6% (04/28/21) ASSESSMENT: 06/27/21: * Patient received total of 89 units of insulin yesterday, of which 40 units were basal insulin * BSGs trending up last evening, likely related to a dose of solumedrol given yesterday evening in crime laboratory analyst * Fasting BSG elevated 254 mg/dL - will give another 10 units of supplemental basal this AM, continue with usual home Lantus at HS * Tightened CF/CR this AM to account for effects of steroids. Anticipate BSGs to further improve throughout the day since no further steroids ordered 06/26/21: * Reduced dose of Lantus was given last evening for NPO p midnight. * BSGs have been elevated today partially d/t basal insulin deficiency. Pt was also ordered 3 doses of Prednisone 50mg, which she received ~q6h from last evening until this morning, prior to procedure. This is also contributing to steroid-induced hyperglycemia. * Supplemental dose of Lantus given this morning, then will resume previous dose. * Anticipate that BSGs will begin to improve as the effects of steroids wear off. * Pharmacy will continue to follow and adjust regimen as indicated. 06/25 * 71 yo F admitted yesterday secondary to intermittent chest pain. Pharmacy has been consulted to assist with inpatient glycemic management. Patient remains NPO in case of cardiology intervention this morning given elevated troponin. * BSG in ED was 165 mg/dL. Upon transfer to floor, BSG was 143 mg/dL. Initial insulin orders entered by second shift pharmacist. Received home dose of Lantus 30 units SQ last evening + Novolog CF and CR. * Fasting BSG was 138 mg/dL this AM - well controlled. Will follow cardiology's recommendations today and adjust insulin accordingly should a diet be ordered. PLAN FOR INPATIENT GLYCEMIC CONTROL: * Basal insulin * Lantus 10 units SQ x1 dose this morning * Lantus 30 units SQ HS * Bolus insulin * NovoLog per scale ACHS or Q6hrs while NPO * Goal Range: Low 110 mg/dL - High 140 mg/dL * Correction Factor: 12 mg/dL/unit * Nutritional / Prandial insulin per carb ratio of 1 unit per 5 grams CHO consumed RECOMMENDATION FOR DISCHARGE: * HbA1c is well controlled. Most recent endocrinology visit note reviewed. BSGs well controlled with < 1% lows. Continue outpatient regimen upon discharge and follow-up with endocrinology as scheduled. Report significant/consistent hypoglycemia to their office.
[2021-06-27] MEDS: ENOXAPARIN 100 MG/1ML SYR SQ SCH ×2 (10:06→20:41)
[2021-06-27] MEDS ORDERED: MAGNESIUM SULFATE 50% 2 GM in SODIUM CHLORIDE 0.9% 500 ML IV SCH (11:00)
--- NOTE | 2021-06-27 11:08 | Hospitalist Progress Note ---
Date of Service June 27, 2021 Assessment & Plan (1) Chest pain: Plan: 71-year-old female with PMH CAD s/p CABG, stent, paroxysmal atrial fibrillation on Coumadin, insulin-dependent DM II, CKD III, obesity presented to ER with complaint of intermittent back pain, bilateral arm and chest pain past week with Chest pain NSTEMI Risk factors: CAD, HTN, HLD, DM. Echocardiogram showed EF of 55 to 60%, grade 2 diastolic dysfunction and apical inferior and inferoseptal watt are severely hypokinetic, moderate to severe mitral annular calcification, mild MR, RV systolic pressure mildly elevated at 35 to 40 mmHg Status post left heart cath which showed multivessel coronary artery disease with 90% proximal LAD in-stent restenosis, 30-40% ostial/proximal circumflex and patent distal circumflex OM 2 stents 1DES was placed to open the in stent re-stenosis. Pt states she was on Plavix and warfarin since ASA was stopped last Oct by her pipe foreman. ASA is now being added back for triple therapy. Continue rosuvastatin Continue metoprolol titrate 50 mg twice daily Continue nitro drip for better blood pressure [id number] per cardiology Hypertensive emergency In ER BP 184/102. On Nitropaste, transitioned to nitro drip with BP currently controlled. Recently PCP decreased metoprolol tartrate from 50 mg twice daily to 25 mg twice daily secondary to SBP's in the low 100s, amlodipine was discontinued sec ondary to low BP as well as BLE edema Increased metoprolol tartrate back to 50 mg twice daily Cardio restarted amlodipine Continue lisinopril Continue nitro drip and titrate as per cardiology Hypomagnesemia Magnesium was 1.3 continues on daily MgOx given additional Mg IV today (placed in NSS instead of dextrose with hyperglycemia) Paroxysmal atrial fibrillation On warfarin Current sinus rhythm INR was reversed for Cath INR this am is 1.2 restarted warfarin and Lovenox bridge for now. Cont metoprolol tartrate and sotalol DM II A1c: 6.8 on 06/08/2021 Will continue home Lantus NovoLog sliding scale per pharmacy. Currently hyperglycemic this am with glucose around 300. HLD On rosuvastatin, fenofibrate, ezetimibe CKD III chronic, stable. Baseline ~1.0 Obesity BMI: 42 Recommend lifestyle modifications which we discussed this am. Patient is not interested in plant based diet at this time. Odalys Nair DO [facility] Hospitalist Admission and Anticipated Discharge Date Admission Date: June 24, 2021 Subjective 71 yo F with known h/o CAD, s/p CABG in the past presented with elevated BP and chest pain with radiation into her back and involving her arms. She underwent a cardiac cath with in-stent restenosis in LAD and new stent was placed in this area. Residual disease was noted. She has had labile BP and this appears controlled on nitro drip today. She is feeling well, denying all symptoms, reporting these resolved after the cath procedure. She has been up and walking around and is feeling well. She is concerned that her glucose is around 300, and we talked about her typical dosing of Novolog at home which is 30 Units TIDWM. Pharmacy is managing her basal/bolus insulin. Her daughter, Asmita, was on the phone with her when I arrived and she was put on speaker and joined in the conversation. low Mg this am and IV Mag was ordered. Review of Systems Review of Systems: All systems were reviewed and negative except as indicated in subjective above. Physical Exam Physical Exam: CONSTITUTIONAL: obese, vitals as above, generally well- appearing EYES: normal conjunctivae, no scleral icterus ENT: external ear and nose normal, MMM NECK: trachea midline RESPIRATORY: clear to auscultation bilaterally, no crackles, rales or wheezes, normal respiratory effort CARDIOVASCULAR: regular rate and rhythm, S1 and 2 heard without murmurs, gallops or rubs, no JVD, no peripheral edema CHEST: inspection of chest was normal GASTROINTESTINAL: soft, nontender, ND, no guarding MUSCULOSKELETAL: strength 5/5 throughout, head is normocephalic and atraumatic SKIN: warm and dry NEUROLOGIC: CN 2-12 grossly intact, no sensory deficit, normal cognition, normal speech, no tremor PSYCHIATRIC: alert cooperative and oriented to person, place and time. Euthymic mood, makes good eye contact, language grossly intact, recent and remote memory grossly intact. Results & Data Results & Data ([facility]) Vital Signs (Past 12 Hours) Vital Signs Temp Pulse Pulse Resp BP Pulse Ox 06/27/21 08:05 37.1 C 82 18 129/79 97 06/27/21 08:00 80 06/27/21 03:40 36.5 C 72 18 125/76 94 06/26/21 23:00 36.6 C 64 18 104/63 98 Laboratory Results Short CBC 06/27/21 Range/Units 06:55 WBC 14.69 H (4.8-10.8) K/uL Hgb 12.0 (12.0-16.0) g/dL Hct 36.0 L (37-47) % Plt Count 194 (130-400) K/uL BMP 06/26/21 06/26/21 06/26/21 13:03 16:46 19:00 Sodium Cancelled 133 L Potassium Cancelled TNP 4.8 Chloride Cancelled 100 Carbon Dioxide Cancelled 24 BUN Cancelled 21 Creatinine Cancelled 0.95 Glucose Cancelled 241 H Calcium Cancelled 8.8 06/27/21 06:55 Sodium 134 L Potassium 4.8 Chloride 101 Carbon Dioxide 27 BUN 31 H Creatinine 1.28 H D Glucose 254 H Calcium 8.2 L Medications Administered Current Inpatient Medications Acetaminophen (Acetaminophen 325 Mg Tab) 650 mg PO Q4H PRN PRN Reason: Pain or Fever Stop: 07/24/21 20:36 Last Admin: 06/25/21 22:32 Dose: 650 mg Documented by: Amlodipine Besylate (Amlodipine Besylate 5 Mg Tab) 5 mg PO [facility] Stop: 07/26/21 00:14 Last Admin: 06/27/21 08:42 Dose: 5 mg Documented by: Ascorbic Acid (Ascorbic Acid 500 Mg Tab) 500 mg PO DAILY [facility] Stop: 07/25/21 08:59 Last Admin: 06/27/21 08:42 Dose: 500 mg Documented by: Aspirin (Aspirin 81 Mg Ectab) 81 mg PO [facility] Stop: 07/27/21 08:59 Last Admin: 06/27/21 08:43 Dose: 81 mg Documented by: Calcium Carbonate (Calcium Carbonate 500 Mg Chewable Tab) 1,500 mg PO Q4H PRN PRN Reason: Indigestion Stop: 07/24/21 20:36 Clopidogrel Bisulfate (Clopidogrel Bisulfate 75 Mg Tab) [facility] [place] Stop: 07/25/21 08:59 Last Admin: 06/27/21 08:41 Dose: 75 mg Documented by: Dextrose (Dextrose 50% 50 Ml Syringe) 25 - 50 ml IV UD PRN; Protocol PRN Reason: Hypoglycemia Protocol Stop: 07/24/21 20:36 Ezetimibe (Ezetimibe 10 Mg Tablet) 10 mg PO [facility] Stop: 07/24/21 20:59 Last Admin: 06/26/21 21:05 Dose: 10 mg Documented by: Enoxaparin Sodium (Enoxaparin 100 Mg/1ml Syr) 100 mg SQ BID [facility] Stop: 07/27/21 08:59 Last Admin: 06/27/21 10:06 Dose: 100 mg Documented by: Fenofibrate (Fenofibrate Nanocrystallized 48 Mg Tablet) 48 mg PO [facility] Stop: 07/24/21 20:59 Last Admin: 06/26/21 21:05 Dose: 48 mg Documented by: Glucagon (Glucagon For Inj 1 Mg Vial) 1 mg SQ UD PRN; Protocol PRN Reason: Hypoglycemia Protocol Stop: 07/24/21 20:36 Glucose (Glucose 10 Tabs/Tube) 4 - 8 tabs PO UD PRN; Protocol PRN Reason: Hypoglycemia Protocol Stop: 07/24/21 20:36 Glucose (Glucose 40% Gel 15 Gm Tube) 15 - 30 gm PO UD PRN; Protocol PRN Reason: Hypoglycemia Protocol Stop: 07/24/21 20:36 Promethazine HCl 12.5 mg/ (Sodium Chloride) 50.5 mls @ 202 mls/hr IV Q6H PRN PRN Reason: Nausea And Vomiting Stop: 07/25/21 22:47 Nitroglycerin/Dextrose (Nitroglycerin/D5w 100 Mcg/Ml) 250 mls @ 18 mls/hr IV .[id number] [facility]; Protocol Stop: 07/26/21 03:59 Last Admin: 06/26/21 23:53 Dose: 30 mcg/min, 18 mls/hr Documented by: Magnesium Sulfate 2 gm/ Sodium (Chloride) 504 mls @ 125 mls/hr IV .Q4H2M [facility] Stop: 06/27/21 15:01 Insulin Aspart (Insulin Aspart Per Unit) 0 units SC [facility]; Protocol Stop: 07/26/21 07:29 Last Admin: 06/27/21 08:38 Dose: 18 units Documented by: Insulin Glargine (Insulin Glargine Solostar 100 Units/Ml 3 Ml Pen) 30 units SC [facility]; Protocol Stop: 07/26/21 20:59 Last Admin: 06/26/21 21:10 Dose: 30 units Documented by: Isosorbide Mononitrate (Isosorbide [place] Extended Rel 60 Mg Tabcr) 60 mg PO QAM [facility] Stop: 07/25/21 08:59 Last Admin: 06/27/21 08:43 Dose: 60 mg Documented by: Levothyroxine Sodium (Levothyroxine Sodium 125 Mcg Tablet) 125 mcg PO DAILYBB [facility] Stop: 07/25/21 06:29 Last Admin: 06/27/21 05:52 Dose: 125 mcg Documented by: Lisinopril (Lisinopril 40 Mg Tab) 40 mg PO [facility] Stop: 07/24/21 20:59 Last Admin: 06/26/21 21:05 Dose: 40 mg Documented by: Magnesium Oxide (Magnesium Oxide 400 Mg Tab) 400 mg PO DAILY [facility] Stop: 07/25/21 08:59 Last Admin: 06/27/21 08:42 Dose: 400 mg Documented by: Metoprolol Tartrate (Metoprolol Tartrate 50 Mg Tab) 50 mg PO BID [facility] Stop: 07/24/21 20:59 Last Admin: 06/27/21 08:40 Dose: 50 mg Documented by: Miscellaneous (Carbohydrates For Hypoglycemia ) 15 - 30 gm PO UD PRN PRN Reason: Hypoglycemia Protocol Stop: 07/24/21 20:36 Miscellaneous Information (Pharmacy Glycemic Mgmt Consult) 1 ea N/A UD PRN PRN Reason: Consult Stop: 07/24/21 20:36 Montelukast Sodium (Montelukast Sodium 10 Mg Tablet) 10 mg PO DAILY [facility] Stop: 07/25/21 08:59 Last Admin: 06/27/21 08:40 Dose: 10 mg Documented by: Multivitamins (Multivitamin Tab) 1 tab [facility] [place] Stop: 07/25/21 08:59 Last Admin: 06/27/21 08:40 Dose: 1 tab Documented by: Ondansetron HCl (Ondansetron Inj 2 Mg/Ml 2 Ml Vial) 4 mg IV Q6H PRN PRN Reason: Nausea Stop: 07/24/21 20:36 Polyethylene Glycol (Polyethylene (Miralax) 17 Gm Pack) 17 gm PO DAILY PRN PRN Reason: Constipation Stop: 07/24/21 20:36 Rosuvastatin Calcium (Rosuvastatin Calcium 20 Mg Tab) 40 mg PO [facility] Stop: 06/03/22 20:59 Last Admin: 06/26/21 21:05 Dose: 40 mg Documented by: Sotalol HCl (Sotalol Hcl 80 Mg Tab) 40 mg PO BID [facility] Stop: 07/24/21 20:59 Last Admin: 06/27/21 08:40 Dose: 40 mg Documented by: Tramadol HCl (Tramadol Hcl 50 Mg Tablet) 25 - 50 mg PO Q4H PRN PRN Reason: Pain Stop: 07/25/21 22:41 Last Admin: 06/25/21 23:11 Dose: 50 mg Documented by: Vitamin D (Cholecalciferol 1,000 Units 25 Mcg Tab) 2,000 units PO QAM [facility] Stop: 07/25/21 08:59 Last Admin: 06/27/21 08:41 Dose: 2,000 units Documented by: Warfarin Sodium (Warfarin Sod 5 Mg Tab) 5 mg PO DAILY@1600 [facility] Stop: 07/27/21 15:59
--- NOTE | 2021-06-27 13:45 | Cardiology Progress Note ---
Date of Service June 27, 2021 Assessment & Plan (1) NSTEMI (non-ST elevated myocardial infarction): (2) Status post insertion of drug-eluting stent into left anterior descending (LAD) artery: (3) Hypertension: (4) Paroxysmal atrial fibrillation: (5) LILY (obstructive sleep apnea): Plan: Patient is a complex 71-year-old female with known coronary disease with prior coronary bypass grafting and coronary stent in 2004 receiving a saphenous vein graft to the left anterior descending. Patient underwent intervention for recurrent angina in October 2020 receiving drug-eluting stent to the proximal left anterior descending. She presented to the hospital with recurrent NSTEMI. Drug-eluting stent implanted to the left anterior descending artery 06/26/2021 without complication. Intravenous nitroglycerin infusing with well-controlled blood pressure. Recommend tapering of IV nitroglycerin dose with eventual discontinuation this afternoon. Consider transition of metoprolol tartrate to carvedilol pending clinical response. She will continue aspirin, Plavix, and warfarin during hospitalization. When her INR is therapeutic, aspirin may be discontinued and she will continue clopidogrel plus warfarin long-term. Other cardiovascular medications will be continued as previously ordered. Admission and Anticipated Discharge Date Admission Date: June 24, 2021 Subjective Patient seen examined at the bedside. No recurrent chest discomfort overnight. Blood pressure well controlled this morning on intravenous nitroglycerin infusion. Offers no complaints. Has questions regarding antiplatelet and anticoagulation. Review of Systems Review of Systems: All systems reviewed & are unremarkable except as noted in Subjective Physical Exam Constitutional: well nourished and + obese; no acute distress Respiratory: normal respiratory effort; no respiratory distress, no labored breathing and no retractions Auscultation: lungs clear to auscultation bilaterally; no crackles, no rales, no rhonchi and no wheezes Cardiovascular: Rate/Rhythm: regular rate and regular rhythm Heart Sounds: normal S1 and normal S2; no murmur Vessels: radial pulses present; no JVD and no carotid bruit Gastrointestinal (Abdomen): Inspection/Auscultation: abdomen normal to inspection; abdomen not distended Percussion/Palpation: abdomen soft; abdomen nontender, no guarding and abdomen not rigid Neurologic: CN's II-XI intact bilaterally and moves all extremities; no focal motor deficits Motor/Sensory: no tremor Psychiatric: A+Ox3, euthymic affect Results & Data ([place]) Vital Signs (Past 12 Hours) Vital Signs Temp Pulse Pulse Resp BP Pulse Ox 06/27/21 13:39 119/70 06/27/21 11:24 36.3 C L 75 17 169/76 H 100 06/27/21 08:05 37.1 C 82 18 129/79 97 06/27/21 08:00 80 06/27/21 03:40 36.5 C 72 18 125/76 94 (1) Hypertension Hypertension type: primary hypertension Qualified Code(s): I10 - Essential (primary) hypertension
[2021-06-27] MEDS ORDERED: INSULIN HUMAN REGULAR PER UNIT 5 UNITS in SYRINGE 4.95 ML IV ONE (14:30)
[2021-06-27] MEDS ORDERED: WARFARIN SOD 5 MG TAB PO SCH (16:00)
[2021-06-27] MEDS ORDERED: INSULIN GLARGINE SOLOSTAR 100 UNITS/ML 3 ML PEN SC SCH (17:00)
[2021-06-27] MEDS ORDERED: Nursing to Pharmacy Communication SCH (18:00)
[2021-06-27] MEDS: ROSUVASTATIN CALCIUM 20 MG TAB PO SCH (20:38)
[2021-06-27] MEDS: lisinopril 40 MG TAB PO SCH (20:38)
[2021-06-27] MEDS: EZETIMIBE 10 MG TABLET PO SCH (20:38)
[2021-06-27] MEDS: FENOFIBRATE NANOCRYSTALLIZED 48 MG TABLET PO SCH (20:39)
[2021-06-27] MEDS: NITROGLYCERIN/D5W 100MCG/ML 250 ML IV SCH (21:09)
[2021-06-28] MEDS ORDERED: INSULIN ASPART PER UNIT SC SCH
[2021-06-28 05:24] LABS: INR 1.2 (0.9-1.1); Prothrombin Time 12.4 Seconds (9.0-12.0)
[2021-06-28 05:40] LABS: Anion Gap 6 (3-11); BUN Creatinine Ratio 35.8 (10-20); Blood Urea Nitrogen 34 mg/dl (6-23); Calcium 8.5 mg/dl (8.5-10.1); Carbon Dioxide 28 mmol/L (21-32); Chloride 101 mmol/L (98-107); Creatinine Clr Calc Pharmacy 55.5 ml/min; Est GFR (African American) 68.9 ml/min; Est GFR (Non-African American) 59.4 ml/min; Glucose 102 mg/dl (70-99(Fasting)); Magnesium 2.2 mg/dl (1.7-2.4); Sodium 135 mmol/L (136-145)
[2021-06-28] MEDS: LEVOTHYROXINE SODIUM 125 MCG TABLET PO SCH (06:21)
[2021-06-28] MEDS: INSULIN ASPART PER UNIT SC SCH ×2 (08:50→11:56)
[2021-06-28] MEDS: ENOXAPARIN 100 MG/1ML SYR SQ SCH (08:54)
[2021-06-28] MEDS: SOTALOL HCL 80 MG TAB PO SCH (08:55)
[2021-06-28] MEDS: CHOLECALCIFEROL 1,000 UNITS 25 MCG TAB PO SCH (08:57)
[2021-06-28] MEDS: MONTELUKAST SODIUM 10 MG TABLET PO SCH (08:57)
[2021-06-28] MEDS: ASPIRIN 81 MG ECTAB PO SCH (08:57)
[2021-06-28] MEDS: amLODIPine BESYLATE 5 MG TAB PO SCH (08:57)
[2021-06-28] MEDS: ASCORBIC ACID 500 MG TAB PO SCH (08:57)
[2021-06-28] MEDS: MULTIVITAMIN TAB PO SCH (08:58)
[2021-06-28] MEDS: CLOPIDOGREL BISULFATE 75 MG TAB PO SCH (08:58)
[2021-06-28] MEDS: MAGNESIUM OXIDE 400 MG TAB PO SCH (08:58)
[2021-06-28] MEDS: ISOSORBIDE MONO EXTENDED REL 60 MG TABCR PO SCH (08:58)
[2021-06-28] MEDS ORDERED: carvediloL 3.125 MG TAB PO SCH (09:00)
--- NOTE | 2021-06-28 10:50 | Pharmacy Report ---
Pharmacy Glycemic Short Note 2 - Date of Service June 28, 2021 - Glycemic Short BSG Results (Last 24 hours): 06/27/21 06/27/21 06/27/21 11:19 11:21 14:08 Glucose POC Glucose 338 H* 305 H* 297 H 06/27/21 06/27/21 06/27/21 16:09 20:12 22:45 Glucose POC Glucose 188 H 108 H 99 06/28/21 06/28/21 04:09 07:11 Glucose 102 H POC Glucose 125 H OUTPATIENT ANTIDIABETIC REGIMEN: * Lantus 30 units SQ HS * Humalog 32-40 units SQ TIDM + SSI w/ CF 30 (for BSG > 150) * HbA1c = 6.6% (04/28/21) ASSESSMENT: 06/28/21: * Patient received total of 123 units of insulin yesterday, of which 50 units were basal insulin * Likely seeing effects of solumedrol given day prior. Anticipate patient to not need as much insulin today * Fasting BSG 125 mg/dL - will likely need to scale back on basal insulin for this evening, may provide scale for 30-40 units based upon BSG value * Continue same CF/CR for now 06/27/21: * Patient received total of 89 units of insulin yesterday, of which 40 units were basal insulin * BSGs trending up last evening, likely related to a dose of solumedrol given yesterday evening in cathode builder * Fasting BSG elevated 254 mg/dL - will give another 10 units of supplemental basal this AM, continue with usual home Lantus at HS * Tightened CF/CR this AM to account for effects of steroids. Anticipate BSGs to further improve throughout the day since no further steroids ordered 06/26/21: * Reduced dose of Lantus was given last evening for NPO p midnight. * BSGs have been elevated today partially d/t basal insulin deficiency. Pt was also ordered 3 doses of Prednisone 50mg, which she received ~q6h from last evening until this morning, prior to procedure. This is also contributing to steroid-induced hyperglycemia. * Supplemental dose of Lantus given this morning, then will resume previous dose. * Anticipate that BSGs will begin to improve as the effects of steroids wear off. * Pharmacy will continue to follow and adjust regimen as indicated. 06/25 * 71 yo F admitted yesterday secondary to intermittent chest pain. Pharmacy has been consulted to assist with inpatient glycemic management. Patient remains NPO in case of cardiology intervention this morning given elevated troponin. * BSG in ED was 165 mg/dL. Upon transfer to floor, BSG was 143 mg/dL. Initial insulin orders entered by second shift pharmacist. Received home dose of Lantus 30 units SQ last evening + Novolog CF and CR. * Fasting BSG was 138 mg/dL this AM - well controlled. Will follow cardiology's recommendations today and adjust insulin accordingly should a diet be ordered. PLAN FOR INPATIENT GLYCEMIC CONTROL: * Basal insulin * Lantus 30-40 units this evening per BSG value * Bolus insulin * NovoLog per scale ACHS or Q6hrs while NPO * Goal Range: Low 110 mg/dL - High 140 mg/dL * Correction Factor: 15 mg/dL/unit * Nutritional / Prandial insulin per carb ratio of 1 unit per 5 grams CHO consumed
--- NOTE | 2021-06-28 12:01 | Cardiology Progress Note ---
Date of Service June 28, 2021 Assessment & Plan (1) NSTEMI (non-ST elevated myocardial infarction): (2) Status post insertion of drug-eluting stent into left anterior descending (LAD) artery: (3) Hypertension: (4) Paroxysmal atrial fibrillation: (5) LILY (obstructive sleep apnea): Plan: Drug-eluting stent implanted to the left anterior descending artery 06/26/2021 without complication. Patient's INR remains subtherapeutic today. Instructed to continue low-dose a spirin in addition to clopidogrel and warfarin for 1 week then discontinue. Importance of continuing clopidogrel uninterrupted discussed. Other cardiovascular medications will be continued as previously ordered. Post coronary intervention activity restrictions listed below. Outpatient cardiology follow-up in 1-[address] Galdamez. ACTIVITY RECOMMENDATIONS: It is common to feel weak and fatigue for a few days. * Do not drive or operate any motorized equipment for the next three days. * Limit stair usage (2 or 3 trips a day only) for the next three days. * Do not lift anything heavier than 10 pounds for the next three days. * Do not engage in vigorous exercise or any sports for the next five days. * You may shower the day after your procedure, but do not immerse the area for three days. Cleanse the site gently with soap and water. SKIN IRRITATION: * You may experience some redness and/or swelling in the area where radiation was administered. If any skin irritation occurs, please contact your family physician. Admission and Anticipated Discharge Date Admission Date: June 24, 2021 Subjective Patient seen examined the bedside. Blood pressure within normal range. Intravenous nitroglycerin discontinued yesterday. Tolerating current medications. INR remains subtherapeutic. Denies any recurrent chest discomfort or shortness of breath. Telemetry reveals sinus rhythm. Offers no other concerns/complaints. Review of Systems Review of Systems: All systems reviewed & are unremarkable except as noted in Subjective Physical Exam Constitutional: well nourished and + obese; no acute distress Respiratory: normal respiratory effort; no respiratory distress, no labored breathing and no retractions Auscultation: lungs clear to auscultation bilaterally; no crackles, no rales, no rhonchi and no wheezes Cardiovascular: Rate/Rhythm: regular rate and regular rhythm Heart Sounds: normal S1 and normal S2; no murmur Vessels: radial pulses present; no JVD and no carotid bruit Gastrointestinal (Abdomen): Inspection/Auscultation: abdomen normal to inspection; abdomen not distended Percussion/Palpation: abdomen soft; abdomen nontender, no guarding and abdomen not rigid Neurologic: CN's II-XI intact bilaterally and moves all extremities; no focal motor deficits Motor/Sensory: no tremor Psychiatric: A+Ox3, euthymic affect Results & Data ([facility]) Vital Signs (Past 12 Hours) Vital Signs Temp Pulse Pulse Resp BP Pulse Ox 06/28/21 10:50 36.6 C 60 19 122/75 98 06/28/21 09:36 60 06/28/21 09:05 65 06/28/21 07:24 36.6 C 56 L 19 129/75 97 06/28/21 03:00 36.6 C 66 20 107/64 99 (1) Hypertension Hypertension type: primary hypertension Qualified Code(s): I10 - Essential (primary) hypertension
--- NOTE | 2021-06-28 13:00 | Discharge Summary ---
Date of Service June 28, 2021 Admission HPI Per Admitting Provider Patient is 71-year-old female with PMH CAD s/p CABG, stent, paroxysmal atrial fibrillation on Coumadin, insulin-dependent DM II, CKD III, obesity presented to ER with complaint of chest pain. Patient reports for the past week has been having intermittent chest pain. She reports waking up in the middle the night with pain to mid upper back that radiates to bilateral arms and mid chest. Reports she checks her BP and SBP's running in 180s at the time. Reports her heart rate is usually in the 80s when she checks her pulse at night. Has not tried taking any nitro. Today was getting ready to go to cardiology outpatient appointment when she started having mid upper back pain radiating to bilateral arms and mid chest heaviness and presented to ER. She reports this is similar to prior [place]. Denies dizziness, palpitations. Patient reports followed up with PCP 06/12/2021 and had reported SBP's in the low 100s on home BP monitor. Outpatient noted reviewed and metoprolol tartrate was decreased from 50 mg twice daily to 25 mg twice daily and her amlodipine was stopped secondary to reported lower extremity edema. Patient states since med change she has noted elevated SBPs running in the 160s-180s. She does feel she has had decreased lower extremity edema. Denies fever/chills, diaphoresis, N/V/D/C, ROBBINS, dizziness, syncope, vision changes, neck pain, SOB, orthopnea, palpitations, cough, sore throat, choking, otalgia, rhinorrhea, abdominal pain, paresthesias, weakness, extremity weakness, rashes, urinary symptoms. In ER patient found to be hypertensive with BP 184/102. EKG without acute ST changes. Since being in ER reports chest discomfort resolved after nitropaste and fentanyl. BP improved to 152/70. Admission Exam Per Admitting Provider GENERAL: Alert and oriented x3. NAD, on RA. Obese. HEENT: No pallor, no icterus. Pupils equal, round and reactive to light. Oral mucosa moist. NECK: No JVD, no neck masses. HEART: S1 and S2 heard. Regular rate and rhythm. No murmur, no gallop. RESPIRATORY SYSTEM: Normal AP diameter. No accessory muscle use. No wheezing, no crackles. ABDOMEN: Soft, bowel sounds present, nontender, no distention. CENTRAL NERVOUS SYSTEM: No facial droop. Speech is clear. Obeys simple commands. Moves extremities. EXTREMITIES: trace ble edema, no erythema seen. Principal Diagnosis Heart attack with stent placement paroxysmal atrial fibrillation on coumadin Discharge Exam CONSTITUTIONAL: obese, vitals as above, generally well-appearing EYES: normal conjunctivae, no scleral icterus ENT: external ear and nose normal, MMM NECK: trachea midline RESPIRATORY: clear to auscultation bilaterally, no crackles, rales or wheezes, normal respiratory effort CARDIOVASCULAR: regular rate and rhythm, S1 and 2 heard without murmurs, gallops or rubs, no JVD, no peripheral edema CHEST: inspection of chest was normal GASTROINTESTINAL: soft, nontender, ND, no guarding MUSCULOSKELETAL: strength 5/5 throughout, head is normocephalic and atraumatic SKIN: warm and dry NEUROLOGIC: CN 2-12 grossly intact, no sensory deficit, normal cognition, normal speech, no tremor PSYCHIATRIC: alert cooperative and oriented to person, place and time. Euthymic mood, makes good eye contact, language grossly intact, recent and remote memory grossly intact. Discharge Data Allergies Allergy/AdvReac Type Severity Reaction Status Date / Time Iodinated Contrast Media Allergy Intermediate TEARS AND Verified 06/24/21 15:37 FACE BECAME VERY REDDENED oxycodone Allergy Mild itchy Verified 06/24/21 15:37 diltiazem AdvReac Unknown Unknown Verified 06/24/21 16:18 Blood-Group Specific Allergy Unknown NO BLOOD Uncoded 06/24/21 15:37 Substance PRODUCTS Consultations 06/24/21 16:15 ED Decision to Admit Stat 06/24/21 20:37 Consult Cardiology Routine 06/26/21 16:07 Consult Cardiac Rehabilitation Routine Procedures Performed Operation Date: 06/26/21 02:25 Actual Procedures p Cath, Coronaries ONLY (no LV) - Jarocho Rivas MD s Cineradiography w/Routine Exam - Jarocho Rivas MD Operation Date: 06/26/21 14:00 Actual Procedures p Cineradiography w/Routine Exam - Jarocho Rivas MD p Drug Eluting Stent SGl Vessel - Jarocho Rivas MD s Ultrasound Vascular Access - Jarocho Rivas MD Ordered Studies Laboratory Results WBC 14.69 K/uL (4.8-10.8) H 06/27/21 06:55 RBC 3.84 M/uL (4.2-5.4) L 06/27/21 06:55 Hgb 12.0 g/dL (12.0-16.0) 06/27/21 06:55 Hct 36.0 % (37-47) L 06/27/21 06:55 MCV 93.8 fL (80-100) 06/27/21 06:55 MCH 31.3 pg (25-34) 06/27/21 06:55 MCHC 33.3 g/dL (32-36) 06/27/21 06:55 RDW Std Deviation 44.1 fL (36.4-46.3) 06/27/21 06:55 RDW Coeff of Ree 13.0 % (11.5-14.5) 06/27/21 06:55 Plt Count 194 K/uL (130-400) 06/27/21 06:55 MPV 11.0 fL (7.4-10.4) H 06/27/21 06:55 Immature Gran % (Auto) 0.3 % 06/24/21 14:59 Neut % (Auto) 59.4 % 06/24/21 14:59 Lymph % (Auto) 29.4 % 06/24/21 14:59 [place] % (Auto) 8.2 % 06/24/21 14:59 Eos % (Auto) 2.4 % 06/24/21 14:59 Baso % (Auto) 0.3 % 06/24/21 14:59 Neut # (Auto) 4.45 K/uL (1.4-6.5) 06/24/21 14:59 Lymph # (Auto) 2.20 K/uL (1.2-3.4) 06/24/21 14:59 [place] # (Auto) 0.61 K/uL (0.11-0.59) H 06/24/21 14:59 Eos # (Auto) 0.18 K/uL (0-0.5) 06/24/21 14:59 Baso # (Auto) 0.02 K/uL (0-0.2) 06/24/21 14:59 Immature Gran # (Auto) 0.02 K/uL (0.00-0.02) 06/24/21 14:59 PT 12.4 Seconds (9.0-12.0) H 06/28/21 04:09 INR 1.2 (0.9-1.1) H 06/28/21 04:09 APTT 117.3 Seconds (21.0-31.0) H* 06/26/21 13:03 PTT Ratio 4.3 06/26/21 13:03 D-Dimer 210 ug/L FEU (0-500) 06/24/21 14:59 Sodium 135 mmol/L (136-145) L 06/28/21 04:09 Potassium 4.7 mmol/L (3.5-5.1) 06/28/21 06:08 Chloride 101 mmol/L (98-107) 06/28/21 04:09 Carbon Dioxide 28 mmol/L (21-32) 06/28/21 04:09 Anion Gap 6 (3-11) 06/28/21 04:09 BUN 34 mg/dl (6-23) H 06/28/21 04:09 Creatinine 0.95 mg/dl (0.6-1.2) D 06/28/21 04:09 Est Cr Clr Drug Dosing 55.5 ml/min 06/28/21 04:09 Est GFR ( Amer) 68.9 ml/min 06/28/21 04:09 Est GFR (Non-Af Amer) 59.4 ml/min 06/28/21 04:09 BUN/Creatinine Ratio 35.8 (10-20) H 06/28/21 04:09 Glucose 102 mg/dl (70-99(Fasting)) H 06/28/21 04:09 POC Glucose 159 mg/dl (70-99) H 06/28/21 11:20 Calcium 8.5 mg/dl (8.5-10.1) 06/28/21 04:09 Phosphorus 3.6 mg/dl (2.5-4.9) 06/27/21 06:55 Magnesium 2.2 mg/dl (1.7-2.4) 06/28/21 04:09 Total Bilirubin 0.5 mg/dl (0.2-1.0) 06/24/21 14:59 AST 24 U/L (13-39) 06/24/21 14:59 ALT 14 U/L (7-52) 06/24/21 14:59 Alkaline Phosphatase 60 U/L (34-104) 06/24/21 14:59 Troponin I High Sens 89.8 pg/ml (0-14) H* D 06/25/21 22:55 Total Protein 6.9 gm/dl (6.0-8.3) 06/24/21 14:59 Albumin 3.7 gm/dl (3.4-5.0) 06/24/21 14:59 Globulin 3.2 gm/dl (2.5-4.0) 06/24/21 14:59 Albumin/Globulin Ratio 1.2 (0.9-2) 06/24/21 14:59 Triglycerides 238 mg/dl (0-150) H 06/25/21 08:00 Cholesterol 118 mg/dl (0-200) 06/25/21 08:00 LDL Cholesterol, Calc 32 mg/dl 06/25/21 08:00 VLDL Cholesterol, Calc 48 mg/dl (0-30) H 06/25/21 08:00 HDL Cholesterol 38 mg/dl 06/25/21 08:00 Cholesterol/HDL Ratio 3.1 (0-5) 06/25/21 08:00 Lipase 26 U/L (11-82) 06/24/21 14:59 SARS-CoV-2, RNA, NAAT NEGATIVE (NEGATIVE) 06/24/21 18:03 Impressions Chest X-Ray 06/25/21 22:46 XR chest 1V portable HISTORY: Shortness of breath. COMPARISON: Chest 06/24/2021. FINDINGS: Cardiac silhouette remains top normal in size. No pleural effusions. No pneumothorax. There are dense mitral annulus calcifications and poststernotomy changes. Aortic knob calcifications are also noted. There are low lung volumes. No focal lung consolidations to suggest pneumonia. No evidence for pulmonary edema. IMPRESSION: No significant change compared to the prior study. No acute process. ACT 112: Negative or not required by law. Electronically signed by: Kannan Chance M.D. 06/26/2021 7:51 AM Hospital Course (1) Chest pain: 71-year-old female with PMH CAD s/p CABG, stent, paroxysmal atrial fibrillation on Coumadin, insulin-dependent DM II, CKD III, obesity presented to ER with complaint of intermittent back pain, bilateral arm and chest pain past week with Chest pain. Although her initial troponin was negative she does have a prior significant cardiac history including CABG and prior stenting. D-dimer was negative. Low magnesium was noted and she was started on IV replacement. She did have evidence of hypertension which was improved with Nitropaste and Tylenol. She was given additional Pepcid for possible GERD. She was admitted to the hospitalist service and placed on telemetry. Her first troponin was 14 and several hours later her next troponin was 368 followed by the 323 the next morning. Cardiology was consulted. Given she was now presenting with a consistent crescendo angina/non-ST segment elevation myocardial infarction which may have been precipitated by hypertensive urgency with high risk features of symptoms and EKG changes as well as new wall motion abnormality on echocardiogram she was scheduled for diagnostic coronary angiogram vitamin K was administered to reverse anticoagulation on warfarin. She was given preparation for dye allergy. She was continued on topical nitrates and amlodipine was continued as well as metoprolol 50 mg twice daily. 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 Findings included multivessel coronary artery disease with a 90% proximal LAD in-stent restenosis, 30 to 40% ostial/proximal circumflex, patent distal circumflex, OM 2 stents. Patient had a patent vein graft to distal LAD with competitive flow. She was hypertensive to 200s at the beginning of the procedure and blood pressure was improved with IV labetalol and a nitro infusion. With improved blood pressure control the patient became chest pain- free. As she had improved blood pressure and was chest pain-free with good flow throughout she was continued on nitroglycerin and heparin infusion overnight wi th further discussion of revascularization options low in the morning. She underwent a repeat cardiac catheterization later that same day with subsequent placement of a single drug-eluting stent in the LAD in-stent restenosis and angioplasty of the first diagonal with a balloon. She notably had residual moderate to heavily calcified distal left main and ostial circumflex disease. She continued monitoring in the PCU and remained chest pain-free. Blood pressure was well controlled on a nitro drip which was slowly titrated off. Metoprolol was converted to Coreg. She continued on triple therapy with aspirin, clopidogrel and anticoagulation while hospitalized with plan for long- term discharge on dual therapy with anticoagulation and clopidogrel only. She continued on statin and a consult was placed to cardiac rehab. If recurrent LAD restenosis occurs in the future would consider complex ostial LAD/circumflex stenting versus redo CABG. She continued to recover well and blood pressure remained stable on amlodipine, lisinopril and beta-norberto. Magnesium was repleted and INR was subtherapeutic prior to discharge. She was counseled to follow-up with anticoagulation clinic no later than Tuesday for recheck of her INR and verbalized understanding of this. At time of discharge she was mentating and ambulating at her baseline and oxygenating well on room air. She was tolerating p.o. She was sent home in stable condition with close primary care follow-up recommended within a week and cardiology follow-up recommended with Dr. Galdamez, her main patient registrar, within 1 to 2 weeks. Total Time Total Time Spent Total Time Spent (In Minutes): 60 Discharge Plan Discharge Items Patient Disposition: Home - Self-Care Reason For Visit: CP Discharge Diagnosis: Heart attack with stent placement paroxysmal atrial fibrillation on coumadin Condition on Discharge: Good Activity: Resume your previous activity Non-emergency contact: Primary Care Provider Call non-emergency contact if: you have any medication questions, your symptoms worsen, your pain is not controlled, your pain is worsening, your pain is unusual for you and your pain is concerning for you Follow-up/Referrals: Jessica Pompa MD [Primary Care Provider] - Diet: Carb Consistent or DM2 and Heart Healthy Addtl Attending Provider Instructions: Please take all medications as instructed on discharge list below. Please note that you have had some changes in your medications. Please followup wtih your anticoagulation clinic this week for a recheck of your INR level and adjustment of your warfarin if needed. Please follow-up with [facility] (Dr. Galdamez) in 2 weeks time and follow post-procedure instructions outlined below. It is recommended that you see your primary care physician within one week of discharge from this hospital stay. This appointment will be to ensure you are still doing well after returning home, and ensure you are doing well on the new medications. Refills may be placed at this time. It was a pleasure taking care of you! Please call if you have any questions or problems. You can reach a [facility] hospitalist on duty at [facility] 24 hours a day by calling [phone]. Take care of yourself. Odalys Nair DO [facility], [place] Addtl Loan Collector Provider Instructions: ACTIVITY RECOMMENDATIONS: It is common to feel weak and fatigue for a few days. * Do not drive or operate any motorized equipment for the next three days. * Limit stair usage (2 or 3 trips a day only) for the next three days. * Do not lift anything heavier than 10 pounds for the next three days. * Do not engage in vigorous exercise or any sports for the next five days. * You may shower the day after your procedure, butdo not immerse the area for three days. Cleanse the site gently with soap and water. SKIN IRRITATION: * You may experience some redness and/or swelling in the area where radiation was administered. If any skin irritation occurs, please contact your family physician. Pending Studies at Discharge: No Stand-Alone Forms: [facility] Medications and DC Order Prescriptions: New carvedilol 3.125 mg Tablet 3.125 mg PO BID Qty: 60 RF: 0 amlodipine [Norvasc] 5 mg Tablet 5 mg PO QAM Qty: 30 RF: 0 aspirin 81 mg Tablet,Delayed Release (Dr/Ec) 81 mg PO QAM Qty: 90 RF: 0 Continued Lantus Solostar U-100 Insulin 100 unit/mL (3 mL) insulin pen 30 unit SQ HS Qty: 30 RF: 3 insulin lispro [Humalog KwikPen Insulin] 100 unit/mL insulin pen See Rx Instructions SQ TID Qty: 30 RF: 3 levothyroxine 125 mcg tablet 125 mcg PO QAM Qty: 90 RF: 1 (DME) pen needle, diabetic [BD Ultra-Fine Mini Pen Needle] 31 gauge x 3/16" needle See Rx Instructions .ROUTE .MEDSUPPLY Qty: 400 RF: 3 ezetimibe 10 mg tablet 10 mg PO HS RF: 0 acetaminophen [Tylenol Arthritis Pain] 650 mg tablet extended release 650 mg PO Q12H PRN (Reason: Pain) RF: 0 fenofibrate 54 mg tablet 54 mg PO HS RF: 0 zinc 50 mg tablet 50 mg PO DAILY RF: 0 magnesium oxide 400 mg magnesium capsule 400 mg PO DAILY RF: 0 (DME) Dexcom G6 Call Box Wirer Misc See Rx Instructions .ROUTE RF: 0 (DME) Dexcom G6 Sensor Device See Rx Instructions .ROUTE RF: 0 (DME) Dexcom G6 Transmitter Device See Rx Instructions .ROUTE RF: 0 omega-3 fatty acids-fish oil 684-1,200 mg capsule,delayed release(DR/EC) 2 cap PO QAM RF: 0 multivitamin Tablet 1 tab PO QAM RF: 0 cholecalciferol (vitamin D3) [Vitamin D3] 2,000 unit Capsule 2,000 unit PO QAM RF: 0 warfarin 5 mg tablet 5 mg PO HS RF: 0 lisinopril 40 mg tablet 40 mg PO HS RF: 0 montelukast [Singulair] 10 mg tablet 10 mg PO DAILY RF: 0 rosuvastatin 40 mg tablet 40 mg PO HS RF: 0 clopidogrel 75 mg Tablet 75 mg PO QAM Qty: 30 RF: 1 isosorbide mononitrate 60 mg Tablet Extended Release 24 Hr 60 mg PO QAM 30 Days Qty: 30 RF: 2 sotalol 80 mg Tablet 40 mg PO BID 30 Days Qty: 30 RF: 2 ascorbic acid (vitamin C) 500 mg Tablet 500 mg PO DAILY RF: 0 Discontinued metoprolol tartrate 25 mg tablet 25 mg PO BID RF: 0 Discharge Orders: Discharge Order (Routine); Ordered 06/28/21 Ordered By: Odalys Nair Admission Data Admit Date/Time: 06/24/21 16:53 Attending Provider: Odalys Nair Admit Provider: Bola Reyes Primary Care Provider: Jessica Pompa Other Providers: Bola Reyes ; Eduardo De La Garza ; Jhonny Caballero
[2021-06-28] MEDS ORDERED: INSULIN GLARGINE SOLOSTAR 100 UNITS/ML 3 ML PEN SC SCH (21:00)
--- NOTE | 2021-06-30 06:05 | Electrocardiogram Report ---
Test Reason : Blood Pressure : / mmHG Vent. Rate : 075 BPM Atrial Rate : 075 BPM P-R Int : 156 ms QRS Dur : 114 ms QT Int : 476 ms P-R-T Axes : 054 -47 -53 degrees QTc Int : 531 ms Normal sinus rhythm Incomplete right bundle branch block Left anterior fascicular block Prolonged QT Abnormal ECG When compared with ECG of 26-JUN-2021 00:20, T wave inversion now evident in Anterior leads T wave inversion now evident in Inferior leads Confirmed by Eligio Calderon ([id number]) on 06/30/2021 6:05:05 AM Referred By: REFERRED SELF Confirmed By:Eligio Calderon
== END 2021-06-28 13:50 | disposition home or self-care (01) | DRG 246 ==
LOC: ED 14:03 → SUATTDRO 16:53 → 2S 16:53
PROC: CLB.CCO (2021-06-26 02:25)

== ENCOUNTER 2023-05-26 19:56 | Inpatient (IN) ==
[2023-05-26 20:47] LABS: Hemoglobin 11.5 g/dl (12.0-16.0); Mean Corpuscular Hgb Conc 33.8 g/dL (32.0-36.0); Mean Corpuscular Volume 94.7 fL (80.0-100.0); Mean Platelet Volume 11.3 fL (9.4-12.4); Platelet Count 204 K/uL (130-400); RDW Coefficient of Variation 13.1 % (11.5-14.5); RDW Standard Deviation 44.7 fL (36.4-46.3); Red Blood Count 3.59 M/uL (4.20-5.40); White Blood Count 9.14 K/ul (4.8-10.8)
[2023-05-26 21:14] LABS: Troponin I High Sensitivity 21.5 pg/ml (0-14)
[2023-05-26 21:25] LABS: INR 1.1 (0.9-1.1); Partial Thromboplastin Ratio 1.2; Partial Thromboplastin Time 35 Seconds (21-31); Prothrombin Time 11.5 Seconds (9.0-12.0)
--- NOTE | 2023-05-26 23:19 | Emergency Department Note ---
Impression & Plan GIB (gastrointestinal bleeding) ED Provider Note NAME: TOAN ALCANTARA AGE: 73 SEX: F : 1950 ARRIVES VIA: Walk-In INFORMANT: Patient, ED PROVIDER(S): Arya Champion MD CHIEF COMPLAINT: GI bleed HPI: This is a 73-year-old female presenting for GI bleed. Patient has had a colonoscopy estrogenic graze wounds. She has been on triple therapy which includes Plavix, Coumadin and Lovenox. She is also on aspirin. She states that she had a colonoscopy yesterday which was uneventful, she had no significant banding done. She think she has some biopsies done however. She notes that she had some slight red stool yesterday. She was told this was normal by the nurse at the GI office. However this morning she began having black stools, between 2 and 4 episodes throughout the day. Last episode was at around 8 PM which was a large well-formed black bowel movement. She got concerned and came to the emergency department. No fevers, chills, nausea, vomiting. She notes whenever she does pass gas she has bleeding ROS: See above HPI for pertinent positives & negatives. A total of 10 systems reviewed and were otherwise negative. PAST MEDICAL HISTORY: See Below PAST SURGICAL HISTORY: See Below FAMILY HISTORY: See Below SOCIAL HISTORY: See Below HOME MEDICATIONS: See Below ALLERGIES: See Below VITALS: See Below PHYSICAL EXAMINATION: General: resting comfortably in no acute distress Head: Normocephalic and atraumatic Eyes: Normal inspection, extraocular muscles intact Ear, nose, throat: Normal external exam Neck: Normal range of motion Respiratory: lungs clear to auscultation bilaterally Cardiovascular: Regular rate/rhythm, no murmur GI: soft, nontender, no guarding or rebound Extremities: nontender, moves all extremities Neuro: The patient awake and alert, appropriately conversive, no focal deficits, symmetric faces Skin: Warm, dry, and intact MEDICAL DECISION MAKING: This is a 73-year-old female sent for GI bleed. Patient recent colonoscopy yesterday. Discussed with Dr. Sethi; about patient's case with stable hemoglobin and clinical appearance. She said patient may require observation due to these anticoagulation. Patient has no current abdominal pain or tenderness. -Clinically patient does appear well, not having profuse bleeding but is having black stools. Due to recent colonoscopy and triple therapy, will admit for observation for risk of severe GI bleed. Currently hemodynamically stable. Patient and daughter comfortable with this plan -Blood work is reviewed showing a hemoglobin 11.5, INR is 1.1, creatinine 1.31, troponin 21.5 without chest pain -ECG independently interpreted by me with normal sinus rhythm, rate of 67, left axis deviation, normal AL, incomplete right bundle branch block, normal QTc, no ST segment elevations consistent with STEMI criteria Differential diagnosis: Upper versus lower GI bleed, hemorrhoids, mesenteric ischemia, perforation ER treatment provided: See below Diagnostics interpreted by me: ECG: See above Cardiac Monitoring: An order was placed for continuous cardiac monitoring. The monitor shows a rate of 78 with sinus rhythm. Laboratory studies: As stated above and show below. Imaging studies: See below. Past Med/Surg History Medical History Status post insertion of drug-eluting stent into left anterior descending (LAD) artery 2021 - at [facility] NSTEMI (non-ST elevated myocardial infarction) 2020 and again in 2021 - treated at [facility] Hypertriglyceridemia Retinopathy Osteoarthritis Colon polyp hx Hypothyroidism Diabetes mellitus, type 2 IDDM On anticoagulant therapy Transient ischemic attack (TIA) ~2008. Hyperlipidemia Myocardial Infarction September 2004 Sleep apnea oxygen only at HS On home oxygen therapy 2lpm via n/c at HS Bronchitis hx - most recently in March 2023 (treated with abx) Hypertension Chronic kidney disease, stage III (moderate) Dr Patten Atrial fibrillation controlled with medication CHF (congestive heart failure) Vertigo hx Pyelonephritis Surgical History History of appendectomy History of section History of cataract surgery left History of heart artery stent x2 stents (2004) [facility]; x1 stent 2020 at [facility]; x1 stent 2021 at [facility] History of cardiac cath 2004, 2020 and 2021 both at [facility] with stents placed. Hx of CABG x1 vessel (2004) [facility] H/O colonoscopy Family History Father Diabetes FHx: colon cancer Social History Smoking Status: Never smoker Second Hand Exposure: Yes (hx as a child); Do You Dip or Chew Tobacco: No; Hx Alcohol Use: No Hx Substance Use: No Preferred Language: Telugu Communication Ability: Effective Skilled Labor Required: No Beliefs That Will Affect Care: Baptism Baptism Beliefs: Smita Wilkes marital status: Unknown Current Living Situation: Alone How many Children do You have: 3 Feels Safe at Home: Yes Assistive Devices: Denture - Upper, Glasses and Oxygen - at Night Allergies Allergies Allergy/AdvReac Type Severity Reaction Status Date / Time Iodinated Contrast Media Allergy Intermediate TEARS AND Verified 05/16/23 11:08 FACE BECAME VERY REDDENED oxycodone Allergy Intermediate itchy Verified 05/16/23 11:08 vaccine adjuvant system, Allergy psoarsis Verified 05/26/23 23:28 AS01B liposomal [From Shingrix (PF)] varicella-zoster virus Allergy psoarsis Verified 05/26/23 23:28 glycoprotein E, recombinant [From Shingrix (PF)] diltiazem AdvReac Unknown Unknown Verified 05/16/23 11:08 Blood-Group Specific Allergy Unknown NO BLOOD Uncoded 05/16/23 11:08 Substance PRODUCTS Home Meds Home Medications Medication Instructions Recorded Confirmed rosuvastatin 40 mg tablet 40 mg PO QAM 08/09/18 05/26/23 ezetimibe 10 mg tablet 10 mg PO QAM 04/05/19 05/26/23 fenofibrate 54 mg tablet 54 mg PO HS 04/24/20 05/26/23 acetaminophen 650 mg 1,300 mg PO Q12H Pain 04/28/21 05/26/23 tablet,extended release (Tylenol Arthritis Pain) omega-3 fatty acids-fish oil 684 2 cap PO QAM 04/28/21 05/26/23 mg-1,200 mg capsule,delayed release magnesium oxide 400 mg PO BID 07/23/21 05/26/23 nitroglycerin 0.4 mg sublingual 0.4 mg sublingual UD PRN Chest Pain 05/17/22 05/26/23 tablet blood-glucose sensor (Dexcom G6 11/17/22 05/27/23 Sensor device) carvedilol 3.125 mg tablet 3.125 mg PO BIDM 04/28/23 05/27/23 cholecalciferol (vitamin D3) 25 25 mcg PO QAM 04/28/23 05/26/23 mcg (1,000 unit) tablet (Vitamin D3) cyanocobalamin (vitamin B-12) 1,000 mcg PO QAM 04/28/23 05/26/23 1,000 mcg tablet (Vitamin B-12) lisinopril 20 mg tablet 20 mg PO HS 04/28/23 05/26/23 montelukast 10 mg tablet 10 mg PO QAM 04/28/23 05/26/23 sotalol 80 mg tablet 40 mg PO AMHS 04/28/23 05/27/23 warfarin 5 mg tablet 5 mg PO HS 04/28/23 05/26/23 insulin lispro 100 unit/mL See Rx Instructions .Route .COMPLEX 05/26/23 05/26/23 subcutaneous solution (Humalog U-100 Insulin) levothyroxine 125 mcg tablet 125 mcg PO DAILYBB 05/26/23 05/26/23 multivitamin 1 tab PO DAILY 05/26/23 05/26/23 betamethasone dipropionate 0.05 % 1 applic topical BID 05/27/23 05/27/23 topical ointment enoxaparin 100 mg/mL subcutaneous 100 mg subcut AMHS 05/27/23 05/27/23 syringe furosemide 20 mg tablet 20 mg PO QAM 05/27/23 05/27/23 Previous Rx's Medication Instructions Recorded clopidogrel 75 mg tablet 75 mg PO QAM #30 tabs 11/13/20 isosorbide mononitrate 60 mg 60 mg PO QAM 30 days #30 tabs 01/05/21 tablet,extended release 24 hr aspirin 81 mg tablet,delayed 81 mg PO QAM #90 tabs 06/28/21 release ipratropium 0.5 mg-albuterol 3 mg 3 ml inhalation Q8H PRN wheezing 09/06/21 (2.5 mg base)/3 mL nebulization #90 mL soln pen needle, diabetic 31 gauge x #400 ea 11/08/2205/06" (BD Ultra-Fine Mini Pen Needle) insulin glargine 100 unit/mL (3 30 unit (0.3 mL) subcut HS #30 mL 03/14/23 mL) subcutaneous pen (Lantus Solostar U-100 Insulin) Results & Data (ED) Vital Signs Vital Signs - 24 hr 05/26/23 20:09 05/26/23 21:27 05/26/23 23:07 Temperature 36.7 C Temperature Source Temporal Artery Scan Pulse Rate 73 78 Pulse Rate [Finger] 89 Pulse Rhythm [Finger] Regular Respiratory Rate 20 18 Respiratory Effort / Characteristics Non-Labored Spontaneous Non-Labored Spontaneous Respiratory Depth Normal Normal Respiratory Pattern Regular Regular Blood Pressure 183/70 H Blood Pressure [Right Arm] 189/85 H Blood Pressure Mean 107 Blood Pressure Mean [Right Arm] 119 Blood Pressure Position Sitting Blood Pressure Position [Right Arm] Sitting Pulse Oximetry 95 100 Oxygen Delivery Method Room Air Room Air Sepsis Recent Fever Within 48 Hours No Sepsis New/Unexplained Change in Mental Status N/A Sepsis Action Taken by Nursing No Action Required Laboratory Data 05/26/23 20:30 05/26/23 20:30 Lab Results 05/26/23 05/26/23 Range/Units 20:30 21:28 WBC 9.14 (4.8-10.8) K/ul RBC 3.59 L (4.20-5.40) M/uL Hgb 11.5 L (12.0-16.0) g/dl Hct 34.0 L (37.0-47.0) % MCV 94.7 (80.0-100.0) fL MCH 32.0 (25.0-34.0) pg MCHC 33.8 (32.0-36.0) g/dL RDW Std Deviation 44.7 (36.4-46.3) fL RDW Coeff of Ree 13.1 (11.5-14.5) % Plt Count 204 (130-400) K/uL MPV 11.3 (9.4-12.4) fL PT 11.5 (9.0-12.0) Seconds INR 1.1 (0.9-1.1) APTT 35 H (21-31) Seconds PTT Ratio 1.2 Sodium 135 L (136-145) mmol/L Potassium 4.8 (3.5-5.1) mmol/L Chloride 100 (98-107) mmol/L Carbon Dioxide 25 (21-32) mmol/L Anion Gap 10 (3-11) BUN 31 H (6-23) mg/dl Creatinine 1.31 H (0.6-1.2) mg/dl Est Cr Clr Drug Dosing 38.6 ml/min Est GFR ( Amer) 46.0 ml/min Est GFR (Non-Af Amer) 39.7 ml/min BUN/Creatinine Ratio 23.7 H (10-20) Glucose 159 H (70-99(Fasting)) mg/dl Calcium 9.1 (8.6-10.3) mg/dl Total Bilirubin 0.4 (0.2-1.0) mg/dl AST 29 (13-39) U/L ALT 18 (7-52) U/L Alkaline Phosphatase 56 (34-104) U/L Troponin I High Sens 21.5 H (0-14) pg/ml Total Protein 6.7 (6.0-8.3) gm/dl Albumin 3.8 (3.4-5.0) gm/dl Globulin 2.9 (2.5-4.0) gm/dl Albumin/Globulin Ratio 1.3 (0.9-2) Blood Type Cancelled O Positive Antibody Screen Cancelled NEGATIVE Discharge Plan Visit Data Chief Complaint: GI Bleed Stated Complaint: RECTAL BLEED/POST COLENOSCOPY, BLACK STOOL ED Provider: Arya Champion Discharge Problem: GIB (gastrointestinal bleeding) Forms Stand Alone Forms: My [facility] Prescriptions Prescriptions: No Action (DME) pen needle, diabetic [BD Ultra-Fine Mini Pen Needle] 31 gauge x 3/16" needle See Rx Instructions .ROUTE .MEDSUPPLY Qty: 400 3RF Rx Instructions: use 4 needles daily - PLEASE HAVE LAB WORK DONE BELLE! insulin glargine [Lantus Solostar U-100 Insulin] 100 unit/mL (3 mL) insulin pen 30 unit SQ HS Qty: 30 3RF Rx Instructions: 30 units subcut daily; ezetimibe 10 mg tablet 10 mg PO QAM acetaminophen [Tylenol Arthritis Pain] 650 mg tablet extended release 1,300 mg PO Q12H (DME) Dexcom G6 Sensor Device See Rx Instructions .Route Rx Instructions: As directed fenofibrate 54 mg tablet 54 mg PO HS magnesium oxide 400 mg magnesium capsule 400 mg PO BID nitroglycerin 0.4 mg tablet, sublingual 0.4 mg sublingual UD PRN (Reason: Chest Pain) Rx Instructions: place under tongue 1 tab every 5 minutes as needed for chest pain,up to 3 doses in 15 minutes omega-3 fatty acids-fish oil 684-1,200 mg capsule,delayed release(DR/EC) 2 cap PO QAM rosuvastatin 40 mg tablet 40 mg PO QAM clopidogrel 75 mg Tablet 75 mg PO QAM Qty: 30 1RF isosorbide mononitrate 60 mg Tablet Extended Release 24 Hr 60 mg PO QAM 30 Days Qty: 30 2RF aspirin 81 mg Tablet,Delayed Release (Dr/Ec) 81 mg PO QAM Qty: 90 0RF ipratropium-albuterol 0.5 mg-3 mg(2.5 mg base)/3 mL solution for nebulization 3 ml INH Q8H PRN (Reason: wheezing) Qty: 90 0RF Rx Instructions: J10.1, R05 cyanocobalamin (vitamin B-12) [Vitamin B-12] 1,000 mcg Tablet 1,000 mcg PO QAM warfarin 5 mg Tablet 5 mg PO HS montelukast 10 mg Tablet 10 mg PO QAM cholecalciferol (vitamin D3) [Vitamin D3] 25 mcg (1,000 unit) Tablet 25 mcg PO QAM sotalol 80 mg tablet 40 mg PO AMHS lisinopril 20 mg tablet 20 mg PO HS carvedilol 3.125 mg tablet 3.125 mg PO BIDM Rx Instructions: take with morning and evening meals levothyroxine 125 mcg tablet 125 mcg PO DAILYBB Patient Comments: Patient needs this here soon 30 min before other meds. Rx Instructions: Take with full glass of water on empty stomach; take 30 minutes before other meds multivitamin [One A Day] Tablet 1 tab PO DAILY insulin lispro [Humalog U-100 Insulin] 100 unit/mL Solution See Rx Instructions .ROUTE .COMPLEX Rx Instructions: inject under skin 45 units before breakfast,20-30 units before lunch and dinner furosemide 20 mg Tablet 20 mg PO QAM enoxaparin 100 mg/mL Syringe 100 mg SUBCUT AMHS betamethasone dipropionate 0.05 % Ointment 1 applic TOPICAL BID Rx Instructions: apply to psoriasis on right wrist and left calf twice daily (or more if itchy instead of scratching) and use plastic wrap on left calf short term to improve faster Referrals Referrals: Jessica Pompa MD [Primary Care Provider] -
--- NOTE | 2023-05-26 23:51 | History & Physical Report ---
Date of Service May 26, 2023 Assessment & Plan (1) GIB (gastrointestinal bleeding): Plan: Painless GI bleed Combined UGIB/LGIB Recent colonoscopy History antiplatelet Rx for CAD status post CABG (2004) sp stent (2021) History anticoagulation for PAF/PVD/subclavian steal syndrome as per records Patient currently hemodynamically stable, hemoglobin at baseline Hypertension elevated secondary to mild anxiety Troponin elevation secondary to above in the setting of ARF on CKD valvular heart disease (mild MS/MR/TR) hyperlipidemia on statin Rx DM2 insulin requiring, reasonable control as of recent hemoglobin A1c of 7.23 November 2022 hypothyroidism, as of recent outpatient TSH last year OBS Medical telemetry IV PPI Appropriate to hold antiplatelet and anticoagulation for now Discontinue aspirin on discharge given admission for GI bleed. (Patient has been counseled by fast foods worker in the past regarding increased risks of taking aspirin along with Plavix and Coumadin but patient would not comply due to fear of recurrent stent blockage.) GI consult re: GI bleed N.p.o. until patient seen by GI in anticipation of endoscopy. Facilitate p.m. Coreg Follow troponin, TTE if with significant progression Baseline UA, monitor creatinine response to IVF, appropriate to hold home lisinopril for now until creatinine back to baseline, renal ultrasound and Nephrology consult if without improvement (Patient known to Dr. Patten.) Basal bolus insulin adjusted for n.p.o. status, ISS BG goal 1 10-1 40, update hemoglobin A1c DVT prophylaxis. SCDs Re: GI bleed Full code History of Present Illness Chief Complaint: Melena, GI bleed Primary Care Provider: Jessica Pompa MD History obtained from patient and records. Medical history significant for CAD status post CABG (2004) sp stent (2021), PAF/PVD/subclavian steal syndrome as per records on Coumadin, valvular heart disease (mild MS/MR/TR), hypertension, hyperlipidemia, LILY on home O2 at night, DM2 insulin requiring, hypothyroidism, NAFLD, CRI (baseline creatinine 1.3), chronic anemia (baseline hemoglobin of 11). Last confinement June 2021 for NSTEMI. Stent placement for LAD in-stent restenosis and angioplasty of first diagonal with balloon. Patient seen at [facility] cardiology office on follow-up visit 2 months ago. Ciaran loyd with assistance of anticoagulation clinic recommended for outpatient colonoscopy at [facility] Babar Shelley scheduled for May 25, 2023. Patient should remain on Plavix during procedure as per provider note. Patient told that she could hold the aspirin which patient has refused to stop for some time now due to patient fears of stent occlusion. Cardiology providers have counseled her in the past regarding increased risk of bleeding with triple therapy (aspirin, Plavix and Coumadin) Patient underwent outpatient colonoscopy at [facility] Shelley yesterday. GI provider aware of possible miscommunication regarding her Plavix medication as per patient. Findings below : Hemorrhoids found on perianal exam. One 1 mm polyp in the ascending colon, removed with a cold biopsy forceps. Resected and retrieved. Two 2 mm polyps in the transverse colon, removed with a cold snare. Resected and retrieved. A tattoo was seen in the sigmoid colon. A post-polypectomy scar was found at the tattoo site. There was no evidence of residual polyp tissue. Internal hemorrhoids. Hematochezia without abdominal pain noted upon arrival at home as per patient. She was told to expect some bleeding by GI doctor. ER evaluation recommended if bleeding worsened or with any abdominal pain/dizziness symptoms. Patient continued to take home aspirin and Plavix along with Coumadin and Lovenox injection recommended by Coumadin clinic. Patient later noted melanotic stools at home. No headache, no chest pain, no SOB, no abdominal pain. Patient brought to ER for evaluation. 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, [employer] Allergies Allergy/AdvReac Type Severity Reaction Status Date / Time Iodinated Contrast Media Allergy Intermediate TEARS AND Verified 05/16/23 11:08 FACE BECAME VERY REDDENED oxycodone Allergy Intermediate itchy Verified 05/16/23 11:08 vaccine adjuvant system, Allergy psoarsis Verified 05/26/23 23:28 AS01B liposomal [From Shingrix (PF)] varicella-zoster virus Allergy psoarsis Verified 05/26/23 23:28 glycoprotein E, recombinant [From Shingrix (PF)] diltiazem AdvReac Unknown Unknown Verified 05/16/23 11:08 Blood-Group Specific Allergy Unknown NO BLOOD Uncoded 05/16/23 11:08 Substance PRODUCTS Home Medications Medication Instructions Recorded Confirmed Type rosuvastatin 40 mg tablet 40 mg PO QAM 08/09/18 05/26/23 History ezetimibe 10 mg tablet 10 mg PO QAM 04/05/19 05/26/23 History fenofibrate 54 mg tablet 54 mg PO HS 04/24/20 05/26/23 History clopidogrel 75 mg tablet 75 mg PO QAM #30 tabs 11/13/20 05/26/23 Rx isosorbide mononitrate 60 mg 60 mg PO QAM 30 days #30 tabs 01/05/21 05/26/23 Rx tablet,extended release 24 hr acetaminophen 650 mg 1,300 mg PO Q12H Pain 04/28/21 05/26/23 History tablet,extended release (Tylenol Arthritis Pain) omega-3 fatty acids-fish oil 684 2 cap PO QAM 04/28/21 05/26/23 History mg-1,200 mg capsule,delayed release aspirin 81 mg tablet,delayed 81 mg PO QAM #90 tabs 06/28/21 05/26/23 Rx release magnesium oxide 400 mg PO BID 07/23/21 05/26/23 History ipratropium 0.5 mg-albuterol 3 mg 3 ml inhalation Q8H PRN wheezing 09/06/21 05/26/23 Rx (2.5 mg base)/3 mL nebulization #90 mL soln nitroglycerin 0.4 mg sublingual 0.4 mg sublingual UD PRN Chest Pain 05/17/22 05/26/23 History tablet pen needle, diabetic 31 gauge x #400 ea 11/08/22 05/27/23 Rx 3/16" (BD Ultra-Fine Mini Pen Needle) blood-glucose sensor (Dexcom G6 11/17/22 05/27/23 History Sensor device) insulin glargine 100 unit/mL (3 30 unit (0.3 mL) subcut HS #30 mL 03/14/23 05/26/23 Rx mL) subcutaneous pen (Lantus Solostar U-100 Insulin) carvedilol 3.125 mg tablet 3.125 mg PO BIDM 04/28/23 05/27/23 History cholecalciferol (vitamin D3) 25 25 mcg PO QAM 04/28/23 05/26/23 History mcg (1,000 unit) tablet (Vitamin D3) cyanocobalamin (vitamin B-12) 1,000 mcg PO QAM 04/28/23 05/26/23 History 1,000 mcg tablet (Vitamin B-12) lisinopril 20 mg tablet 20 mg PO HS 04/28/23 05/26/23 History montelukast 10 mg tablet 10 mg PO QAM 04/28/23 05/26/23 History sotalol 80 mg tablet 40 mg PO AMHS 04/28/23 05/27/23 History warfarin 5 mg tablet 5 mg PO HS 04/28/23 05/26/23 History insulin lispro 100 unit/mL See Rx Instructions .Route .COMPLEX 05/26/23 05/26/23 History subcutaneous solution (Humalog U-100 Insulin) levothyroxine 125 mcg tablet 125 mcg PO DAILYBB 05/26/23 05/26/23 History multivitamin 1 tab PO DAILY 05/26/23 05/26/23 History betamethasone dipropionate 0.05 % 1 applic topical BID 05/27/23 05/27/23 History topical ointment enoxaparin 100 mg/mL subcutaneous 100 mg subcut AMHS 05/27/23 05/27/23 History syringe furosemide 20 mg tablet 20 mg PO QAM 05/27/23 05/27/23 History Past Med/Surg History Medical History Status post insertion of drug-eluting stent into left anterior descending (LAD) artery 2021 - at [facility] NSTEMI (non-ST elevated myocardial infarction) 2020 and again in 2021 - treated at [facility] Hypertriglyceridemia Retinopathy Osteoarthritis Colon polyp hx Hypothyroidism Diabetes mellitus, type 2 IDDM On anticoagulant therapy Transient ischemic attack (TIA) ~2008. Hyperlipidemia Myocardial Infarction September 2004 Sleep apnea oxygen only at HS On home oxygen therapy 2lpm via n/c at HS Bronchitis hx - most recently in March 2023 (treated with abx) Hypertension Chronic kidney disease, stage III (moderate) Dr Patten Atrial fibrillation controlled with medication CHF (congestive heart failure) Vertigo hx Pyelonephritis Surgical History History of appendectomy History of section History of cataract surgery left History of heart artery stent x2 stents (2004) [facility]; x1 stent 2020 at [facility]; x1 stent 2021 at [facility] History of cardiac cath 2004, 2020 and 2021 both at [facility] with stents placed. Hx of CABG x1 vessel (2004) [facility] H/O colonoscopy Family History Father Diabetes FHx: colon cancer Social History Smoking Status: Never smoker Second Hand Exposure: Yes (hx as a child); Do You Dip or Chew Tobacco: No; Hx Alcohol Use: No Hx Substance Use: No Preferred Language: Zimbabwean Communication Ability: Effective Site Head Required: No Beliefs That Will Affect Care: Quaker Quaker Beliefs: Jehovah Witness marital status: Unknown Current Living Situation: Alone How many Children do You have: 3 Other Information That Helps Us Care for You: No Feels Safe at Home: Yes Safety Concerns: Feels Safe At This Time Assistive Devices: Glasses Review of Systems Review of Systems: As per HPI, all other systems reviewed and negative Physical Exam Physical Exam: GENERAL: Comfortable, morbidly obese, pleasant, slightly hard of hearing no respiratory distress SKIN: Pallor, warm HEENT: Sparse hair, pale palpebral conjunctivae, no ptosis, dry buccal mucosa NECK : Supple, no tenderness CHEST : CTA, no tenderness HEART : RRR, systolic murmur ABDOMEN: Some distention, nontender EXTREMITIES : Minimal LE swelling, no LE tenderness, no other conspicuous deformities noted NEUROLOGIC : Coherent, no facial asymmetry, slightly hard of hearing, no other gross focality Results & Data Results & Data Vital Signs (Past 12 Hours) Vital Signs Temp Pulse Pulse Resp BP BP Pulse Ox 05/26/23 23:07 78 05/26/23 21:27 89 18 189/85 H 100 05/26/23 20:09 36.7 C 73 20 183/70 H 95 O2 Del Method 05/26/23 23:07 05/26/23 21:27 Room Air 05/26/23 20:09 Room Air Laboratory Results Laboratory Results WBC 9.14 K/ul (4.8-10.8) 05/26/23 20:30 RBC 3.59 M/uL (4.20-5.40) L 05/26/23 20:30 Hgb 11.5 g/dl (12.0-16.0) L 05/26/23 20:30 Hct 34.0 % (37.0-47.0) L 05/26/23 20:30 MCV 94.7 fL (80.0-100.0) 05/26/23 20:30 MCH 32.0 pg (25.0-34.0) 05/26/23 20:30 MCHC 33.8 g/dL (32.0-36.0) 05/26/23 20:30 RDW Std Deviation 44.7 fL (36.4-46.3) 05/26/23 20:30 RDW Coeff of Ree 13.1 % (11.5-14.5) 05/26/23 20:30 Plt Count 204 K/uL (130-400) 05/26/23 20:30 MPV 11.3 fL (9.4-12.4) 05/26/23 20:30 PT 11.5 Seconds (9.0-12.0) 05/26/23 20:30 INR 1.1 (0.9-1.1) 05/26/23 20:30 APTT 35 Seconds (21-31) H 05/26/23 20:30 PTT Ratio 1.2 05/26/23 20:30 Troponin I High Sens 21.5 pg/ml (0-14) H 05/26/23 20:30 Blood Type O Positive 05/26/23 21:28 Antibody Screen NEGATIVE 05/26/23 21:28 Diagnostic Findings Chest x-ray as per my interpretation cardiomegaly EKG as per my interpretation : Rate 65, NSR, LAD, LAFB, incomplete RBBB, ST depression lateral leads
[2023-05-27] LABS: Albumin Level 3.8 gm/dl (3.4-5.0); Bilirubin,Total 0.4 mg/dl (0.2-1.0); Calcium 9.1 mg/dl (8.6-10.3); Potassium 4.8 mmol/L (3.5-5.1)
[2023-05-27 00:06] LABS: Albumin Globulin Ratio 1.3 (0.9-2); BUN Creatinine Ratio 23.7 (10-20); Creatinine Clr Calc Pharmacy 38.6 ml/min; Est GFR (Non-African American) 39.7 ml/min; Globulin 2.9 gm/dl (2.5-4.0); Total Protein 6.7 gm/dl (6.0-8.3)
[2023-05-27 00:56] LABS: Magnesium 1.8 mg/dl (1.7-2.4)
[2023-05-27 01:02] LABS: Hematocrit (blood only) 31.4 % (37.0-47.0); Hemoglobin 10.4 g/dl (12.0-16.0)
[2023-05-27] MEDS ORDERED: GLUCOSE 10 TAB/TUBE PO PRN (01:19)
[2023-05-27] MEDS ORDERED: GLUCAGON FOR INJ 1 MG VIAL SQ PRN (01:19)
[2023-05-27] MEDS ORDERED: CARBOHYDRATES FOR HYPOGLYCEMIA PO PRN (01:19)
[2023-05-27] MEDS ORDERED: DEXTROSE 50% 50 ML SYRINGE IV PRN (01:19)
[2023-05-27] MEDS ORDERED: GLUCOSE 40% GEL 15 GM TUBE PO PRN (01:19)
[2023-05-27] MEDS: LANTUS PER UNIT CHARGE SQ STA (01:28)
[2023-05-27] MEDS: INSULIN ASPART PER UNIT CHARGE SC SCH (01:28)
[2023-05-27] MEDS: PANTOprazole 80 MG in DEXTROSE 5% 100 ML IV STA (01:30)
[2023-05-27] MEDS: carvediloL 3.125 MG TAB PO STA (01:30)
[2023-05-27] MEDS: SODIUM CHLORIDE 0.9% 1,000 ML IV ONE (01:30)
[2023-05-27] MEDS: LEVOTHYROXINE SODIUM 125 MCG TABLET PO SCH (06:33)
[2023-05-27 06:56] LABS: Basophils # (auto) 0.03 K/uL (0.00-0.20); Basophils % (auto) 0.5 %; Eosinophils # (auto) 0.23 K/uL (0.00-0.50); Eosinophils % (auto) 3.6 %; Hematocrit (blood only) 31.7 % (37.0-47.0); Hemoglobin 10.2 g/dl (12.0-16.0); Immature Granulocytes # (auto) 0.03 K/uL (0.01-0.20); Immature Granulocytes % (auto) 0.5 %; Lymphocytes # (auto) 2.11 K/uL (1.20-3.40); Lymphocytes % (auto) 33.2 %; Mean Corpuscular Hemoglobin 30.7 pg (25.0-34.0); Mean Corpuscular Hgb Conc 32.2 g/dL (32.0-36.0); Mean Corpuscular Volume 95.5 fL (80.0-100.0); Mean Platelet Volume 11.1 fL (9.4-12.4); Monocytes # (auto) 0.81 K/uL (0.11-0.59); Monocytes % (auto) 12.8 %; Neutrophils # (auto) 3.14 K/uL (1.40-6.50); Neutrophils % (auto) 49.4 %; Platelet Count 146 K/uL (130-400); RDW Coefficient of Variation 13.1 % (11.5-14.5); Red Blood Count 3.32 M/uL (4.20-5.40); White Blood Count 6.35 K/ul (4.8-10.8)
[2023-05-27 07:17] LABS: BUN Creatinine Ratio 27.1 (10-20); Calcium 8.6 mg/dl (8.6-10.3); Creatinine Clr Calc Pharmacy 47.3 ml/min; Est GFR (African American) 58.8 ml/min; Est GFR (Non-African American) 50.7 ml/min; Potassium 4.4 mmol/L (3.5-5.1)
--- NOTE | 2023-05-27 07:33 | XRay Report ---
SINGLE VIEW CHEST CLINICAL HISTORY: Acute renal insufficiency FINDINGS: An AP, portable, upright chest radiograph is compared to study dated 09/06/2021. The patient is status post midline sternotomy. The heart is mildly enlarged noting atherosclerotic calcification of the thoracic ureter. There is prominence of the pulmonary vasculature. Mild atelectasis is seen a t the lung bases. No airspace consolidation or large pleural effusion is identified. No pneumothorax is seen. The skeletal structures are osteopenic. The bony thorax is grossly intact. IMPRESSION: 1. Cardiomegaly with prominence of the pulmonary vasculature. Correlate clinically for evidence of fl uid overload/congestive change. 2. No airspace consolidation or pleural effusion is identified. ACT 112: Negative or not required by law. Electronically signed by: Bartolome Tellez M.D. 05/27/2023 7:31 AM
[2023-05-27 07:35] LABS: Estimated Average Glucose 151 mg/dl; Hemoglobin A1C 6.9 % (4.5-5.6)
[2023-05-27 07:36] LABS: INR 1.1 (0.9-1.1)
[2023-05-27] MEDS: PANTOprazole 40 MG in SYRINGE 0 ML IV SCH (07:43)
[2023-05-27] MEDS: EZETIMIBE 10 MG TAB PO SCH (07:43)
[2023-05-27] MEDS: carvediloL 3.125 MG TAB PO SCH (07:43)
[2023-05-27] MEDS: SOTALOL HCL 80 MG TAB PO SCH (07:44)
[2023-05-27] MEDS: MONTELUKAST SODIUM 10 MG TABLET PO SCH (07:44)
[2023-05-27] MEDS: MULTIVITAMIN TAB PO SCH (07:44)
[2023-05-27] MEDS: ROSUVASTATIN CALCIUM 20 MG TAB PO SCH (07:44)
[2023-05-27] MEDS: ISOSORBIDE MONO EXTENDED REL 60 MG TABCR PO SCH (07:44)
[2023-05-27] MEDS: ACETAMINOPHEN 500 MG TAB PO PRN (07:58)
--- NOTE | 2023-05-27 11:09 | Gastrointestinal Consultation ---
Date of Consultation May 27, 2023 Assessment & Plan (1) GIB (gastrointestinal bleeding): (2) Anemia: Plan Patient with some hermes and dark stools s/p colonoscopy while on coumadin, lovenox, plavix, and baby aspirin. No further bowel movements or bleeding since last evening. Discussed case with Dr. Hurtado. Likely she was bleeding from polypectomy site. This seems to have stopped currently given no further bowel movements or signs of bleeding since last evening. - Keep NPO for now. - continue with protonix 40mg IV po BID. - monitor hgb/hct, transfuse as needed. - will continue to monitor the patient today. Supervising Physician Co-Signing Physician Notes Agree with FLORENCE Nogueira as above Abd: Soft, NT, ND, +BS No BM's since last night Continue current therapy and supportive care Patient did not receive any bowel prep and since no further overt bleeding will hold off on any invasive testing Advance to clear liquids History of Present Illness Reason for Consultation: GIB Requesting Physician: Jordan Doherty MD Attending Physician: Bola Reyes MD History of Present Illness Patient is a 73 year old female who presented to the ED with concerns for GI bleeding. She tells me that on 05/24 she had a colonoscopy done with [facility]. At that time there were 3 polyps removed in the ascending and transverse colon. She tells me she did well after the procedure until the following day when she started having hermes stools. These did slowly start to turn darker and she tells me that due to this she proceeded to the ED for evaluation. Initial hgb was 11.5. She tells me that since arrival at the ED she had one more bowel movement that was dark but nothing in the past 15 hours. / hgb was 10.2 Patient denies any current issues with nausea, vomiting, dysphagia, heartburn, abdominal pain, unintentional weight loss. she has been taking warfarin, plavix, baby aspirin, and lovenox as an outpatient. she tells me she takes these for history of A fib and stents. Allergies Allergy/AdvReac Type Severity Reaction Status Date / Time Iodinated Contrast Media Allergy Intermediate TEARS AND Verified 05/16/23 11:08 FACE BECAME VERY REDDENED oxycodone Allergy Intermediate itchy Verified 05/16/23 11:08 vaccine adjuvant system, Allergy psoarsis Verified 05/26/23 23:28 [id number] liposomal [From Shingrix (PF)] varicella-zoster virus Allergy psoarsis Verified 05/26/23 23:28 glycoprotein E, recombinant [From Shingrix (PF)] diltiazem AdvReac Unknown Unknown Verified 05/16/23 11:08 Blood-Group Specific Allergy Unknown NO BLOOD Uncoded 05/16/23 11:08 Substance PRODUCTS Home Medications Medication Instructions Recorded Confirmed Type rosuvastatin 40 mg tablet 40 mg PO QAM 08/09/18 05/26/23 History ezetimibe 10 mg tablet 10 mg PO QAM 04/05/19 05/26/23 History fenofibrate 54 mg tablet 54 mg PO HS 04/24/20 05/26/23 History clopidogrel 75 mg tablet 75 mg PO QAM #30 tabs 11/13/20 05/26/23 Rx isosorbide mononitrate 60 mg 60 mg PO QAM 30 days #30 tabs 01/05/21 05/26/23 Rx tablet,extended release 24 hr acetaminophen 650 mg 1,300 mg PO Q12H Pain 04/28/21 05/26/23 History tablet,extended release (Tylenol Arthritis Pain) omega-3 fatty acids-fish oil 684 2 cap PO QAM 04/28/21 05/26/23 History mg-1,200 mg capsule,delayed release aspirin 81 mg tablet,delayed 81 mg PO QAM #90 tabs 06/28/21 05/26/23 Rx release magnesium oxide 400 mg PO BID 07/23/21 05/26/23 History ipratropium 0.5 mg-albuterol 3 mg 3 ml inhalation Q8H PRN wheezing 09/06/21 05/26/23 Rx (2.5 mg base)/3 mL nebulization #90 mL soln nitroglycerin 0.4 mg sublingual 0.4 mg sublingual UD PRN Chest Pain 05/17/22 05/26/23 History tablet pen needle, diabetic 31 gauge x #400 ea 11/08/22 05/27/23 Rx 316" (BD Ultra-Fine Mini Pen Needle) blood-glucose sensor (Dexcom G6 11/17/22 05/27/23 History Sensor device) insulin glargine 100 unit/mL (3 30 unit (0.3 mL) subcut HS #30 mL 03/14/23 05/26/23 Rx mL) subcutaneous pen (Lantus Solostar U-100 Insulin) carvedilol 3.125 mg tablet 3.125 mg PO BIDM 04/28/23 05/27/23 History cholecalciferol (vitamin D3) 25 25 mcg PO QAM 04/28/23 05/26/23 History mcg (1,000 unit) tablet (Vitamin D3) cyanocobalamin (vitamin B-12) 1,000 mcg PO QAM 04/28/23 05/26/23 History 1,000 mcg tablet (Vitamin B-12) lisinopril 20 mg tablet 20 mg PO HS 04/28/23 05/26/23 History montelukast 10 mg tablet 10 mg PO QAM 04/28/23 05/26/23 History sotalol 80 mg tablet 40 mg PO AMHS 04/28/23 05/27/23 History warfarin 5 mg tablet 5 mg PO HS 04/28/23 05/26/23 History insulin lispro 100 unit/mL See Rx Instructions .Route .COMPLEX 05/26/23 05/26/23 History subcutaneous solution (Humalog U-100 Insulin) levothyroxine 125 mcg tablet 125 mcg PO DAILYBB 05/26/23 05/26/23 History multivitamin 1 tab PO DAILY 05/26/23 05/26/23 History betamethasone dipropionate 0.05 % 1 applic topical BID 05/27/23 05/27/23 History topical ointment enoxaparin 100 mg/mL subcutaneous 100 mg subcut AMHS 05/27/23 05/27/23 History syringe furosemide 20 mg tablet 20 mg PO QAM 05/27/23 05/27/23 History Patient History Medical History Status post insertion of drug-eluting stent into left anterior descending (LAD) artery 2021 - at [facility] NSTEMI (non-ST elevated myocardial infarction) 2020 and again in 2021 - treated at [facility] Hypertriglyceridemia Retinopathy Osteoarthritis Colon polyp hx Hypothyroidism Diabetes mellitus, type 2 IDDM On anticoagulant therapy Transient ischemic attack (TIA) ~2008. Hyperlipidemia Myocardial Infarction September 2004 Sleep apnea oxygen only at HS On home oxygen therapy 2lpm via n/c at HS Bronchitis hx - most recently in March 2023 (treated with abx) Hypertension Chronic kidney disease, stage III (moderate) Dr Patten Atrial fibrillation controlled with medication CHF (congestive heart failure) Vertigo hx Pyelonephritis Surgical History History of appendectomy History of section History of cataract surgery left History of heart artery stent x2 stents (2004) [facility]; x1 stent 2020 at [facility]; x1 stent 2021 at [facility] History of cardiac cath 2004, 2020 and 2021 both at [facility] with stents placed. Hx of CABG x1 vessel (2004) [facility] H/O colonoscopy Family History Father Diabetes FHx: colon cancer Social History Smoking Status: Never smoker Second Hand Exposure: Yes (hx as a child); Do You Dip or Chew Tobacco: No; Hx Alcohol Use: No Hx Substance Use: No Preferred Language: Latvian Communication Ability: Effective Medical Claims Processor Required: No Beliefs That Will Affect Care: Tenriism Tenriism Beliefs: Jehovah Witness marital status: Unknown Current Living Situation: Alone How many Children do You have: 3 Other Information That Helps Us Care for You: No Feels Safe at Home: Yes Safety Concerns: Feels Safe At This Time Assistive Devices: Glasses Review of Systems Review of Systems: All systems reviewed & are unremarkable except as noted in HPI & below Physical Exam Constitutional: WD/WN, vitals as above Respiratory: normal respiratory effort, lungs clear to auscultation Cardiovascular: RRR, no murmur, no edema Gastrointestinal (Abdomen): normal bowel sounds, soft, nontender, no hepatosplenomegaly Skin: no rashes, warm and dry Psychiatric: Orientation: alert and oriented x 3 Affect: euthymic affect Results & Data Vital Signs (Past 12 Hours) Vital Signs Pulse Pulse Pulse Resp BP BP Pulse Ox 05/27/23 07:41 73 18 161/70 H 99 05/27/23 07:27 72 05/27/23 07:09 05/27/23 05:00 77 16 183/69 H 100 05/27/23 04:54 05/27/23 04:29 78 15 166/76 H 98 05/27/23 04:00 92 H 19 166/76 H 95 05/27/23 03:30 72 17 97 05/27/23 01:27 79 19 169/63 H 98 05/26/23 23:48 78 22 186/84 H 98 Pulse Ox O2 Del Method O2 Del Method O2 Flow Rate 05/27/23 07:41 Room Air 05/27/23 07:27 05/27/23 07:09 Nasal Cannula 1 05/27/23 05:00 Room Air 05/27/23 04:54 92 Room Air 05/27/23 04:29 Room Air 05/27/23 04:00 Room Air 05/27/23 03:30 Room Air 05/27/23 01:27 Room Air 05/26/23 23:48 Room Air Coding Level of Care Code 59978 INT INP/OBS CARE MIN Diagnoses GIB (gastrointestinal bleeding) K92.2 Anemia D64.9
--- NOTE | 2023-05-27 13:43 | Hospitalist Progress Note ---
Date of Service May 27, 2023 Assessment & Plan (1) GIB (gastrointestinal bleeding): Plan: 73-year-old lady with PMH of CAD status post CABG [2004] status post stent [2021], PAF/PVD/subclavian steal syndrome on Coumadin, HTN, HLD, LILY on home O2 at night, T2DM insulin requiring, hypothyroidism, NAFLD, CKD, chronic anemia presented to the ED with melanotic stools with some red blood on wipes. Painless GI bleed Combined UGIB/LGIB Recent colonoscopy at [facility] on Tuesday. Status post 3 polyps removal. Hemorrhoids was noted. Patient coming in with melanotic stool and red blood on wipe. After the procedure, patient was taking aspirin, Plavix along with Coumadin/Lovenox bridge [by [facility] clinic]. Patient has been advised to not take aspirin by her cardiology and was advised to stay on Coumadin and Plavix only. Admitting PT/INR of 1.1. No further bowel movements while in the hospital, hemoglobin has been stable around 10, continue with PPI IV. Avoid NSAIDs. Discontinue aspirin on discharge. GI on board, patient started on clears. Monitor H&H twice a day and prn. Transfuse for Hb < 7 or for symptomatic anemia Demand ischemia: Troponin mildly elevated, flat trend, patient with no chest pain. Continue monitor over telemetry. EKG with no acute ST or T changes. Acute kidney injury over CKD stage III: Likely prerenal. Admitting creatinine of 1.3, baseline creatinine around 0.9. Status post IV fluid, improving. Lasix and lisinopril on hold, likely resume tomorrow. Other chronic medical conditions: Continue with/resume home meds as and when able CAD status post CABG and stent: Resume Plavix and warfarin when cleared per GI. Continue other home medications. PAF/PVD/subclavian steal syndrome: On anticoagulation with warfarin. Will need heparin bridge when warfarin is able to be resumed. Hypertension: Fairly under control, continue home meds Hyperlipidemia: Continue statin, ezetimibe, fenofibrate treatment. T2DM: Sliding scale insulin while in hospital Hypothyroidism: Continue home levothyroxine DVT prophylaxis. SCDs Re: GI bleed Full code Admission and Anticipated Discharge Date Admission Date: May 26, 2023 Subjective Patient was seen and examined at bedside. Patient was sitting up in bed, on room air, NAD. Patient denies further bowel movement while in the hospital. Patient denies abdominal pain. Patient denies any headache or dizziness or chest pain. Denies any nausea or vomiting. Reports chronic cough. Physical Exam Physical Exam: GENERAL: Comfortable, morbidly obese, pleasant, slightly hard of hearing no respiratory distress SKIN: Pallor, warm HEENT: Sparse hair, pale palpebral conjunctivae, no ptosis, moist buccal mucosa NECK : Supple, no tenderness CHEST : CTA, no tenderness HEART : RRR, systolic murmur ABDOMEN: Some distention, nontender EXTREMITIES : Minimal LE swelling, no LE tenderness, no other conspicuous deformities noted NEUROLOGIC : Coherent, no facial asymmetry, slightly hard of hearing, no other gross focality Results & Data Results & Data Vital Signs (Past 12 Hours) Vital Signs Pulse Pulse Pulse Resp BP BP Pulse Ox 05/27/23 12:39 68 18 136/59 L 98 05/27/23 07:41 73 18 161/70 H 99 05/27/23 07:27 72 05/27/23 07:09 05/27/23 05:00 77 16 183/69 H 100 05/27/23 04:54 05/27/23 04:29 78 15 166/76 H 98 05/27/23 04:00 92 H 19 166/76 H 95 05/27/23 03:30 72 17 97 Pulse Ox O2 Del Method O2 Del Method O2 Flow Rate 05/27/23 12:39 Room Air 05/27/23 07:41 Room Air 05/27/23 07:27 05/27/23 07:09 Nasal Cannula 1 05/27/23 05:00 Room Air 05/27/23 04:54 92 Room Air 05/27/23 04:29 Room Air 05/27/23 04:00 Room Air 05/27/23 03:30 Room Air
[2023-05-27 15:34] LABS: Hemoglobin 10.3 g/dl (12.0-16.0)
[2023-05-27] MEDS: INSULIN ASPART PER UNIT CHARGE SC STA (16:17)
[2023-05-27] MEDS: FENOFIBRATE NANOCRYSTALLIZED 48 MG TABLET PO SCH (20:26)
[2023-05-27] MEDS: LANTUS PER UNIT CHARGE SQ SCH (21:11)
[2023-05-27 22:24] LABS: Appearance Urine Clear (Clear); Bacteria Urine Automated 1+ (Negative); Bilirubin Urine Negative (Negative); Blood Urine Negative (Negative); Cast Urine Automated 0 /lpf (0-5); Color Urine Yellow; Glucose Urine UA 1+ (Negative); Ketones Urine Negative (Negative); Leukocyte Esterase Urine Trace (Negative); Nitrite Urine Negative (Negative); Protein Urine Negative (Negative); RBC Urine Automated 0-4 /hpf (0-4); Specific Gravity Urine 1.006 (1.000-1.030); Urobilinogen Urine Negative (Negative); pH Urine 6.5 (4.5-7.5)
[2023-05-27 23:10] LABS: Hematocrit (blood only) 30.3 % (37.0-47.0); Hemoglobin 9.8 g/dl (12.0-16.0)
[2023-05-28 06:08] LABS: Hematocrit (blood only) 31.8 % (37.0-47.0); Hemoglobin 10.3 g/dl (12.0-16.0); Mean Corpuscular Hemoglobin 31.3 pg (25.0-34.0); Mean Corpuscular Hgb Conc 32.4 g/dL (32.0-36.0); Mean Corpuscular Volume 96.7 fL (80.0-100.0); Mean Platelet Volume 11.2 fL (9.4-12.4); Platelet Count 145 K/uL (130-400); RDW Coefficient of Variation 12.9 % (11.5-14.5); RDW Standard Deviation 45.7 fL (36.4-46.3); Red Blood Count 3.29 M/uL (4.20-5.40); White Blood Count 7.17 K/ul (4.8-10.8)
[2023-05-28 06:29] LABS: BUN Creatinine Ratio 23.4 (10-20); Calcium 8.8 mg/dl (8.6-10.3); Est GFR (African American) 68.8 ml/min; Est GFR (Non-African American) 59.3 ml/min; Magnesium 1.7 mg/dl (1.7-2.4); Phosphorus 3.8 mg/dl (2.5-4.9); Potassium 4.7 mmol/L (3.5-5.1)
--- NOTE | 2023-05-28 06:42 | Electrocardiogram Report ---
Test Reason : Blood Pressure : / mmHG Vent. Rate : 067 BPM Atrial Rate : 067 BPM P-R Int : 128 ms QRS Dur : 114 ms QT Int : 452 ms P-R-T Axes : 084 -42 055 degrees QTc Int : 477 ms Normal sinus rhythm Left axis deviation Incomplete right bundle branch block Nonspecific ST and T wave abnormality Abnormal ECG When compared with ECG of 12-MAY-2022 11:44, No significant change was found Confirmed by Eligio Calderon ([id number]) on 05/28/2023 6:42:36 AM Referred By: REFERRED SELF Confirmed By:Eligio Calderon
--- NOTE | 2023-05-28 11:15 | Gastroenterology Progress Note ---
Date of Service May 28, 2023 Assessment & Plan (1) GIB (gastrointestinal bleeding): Plan: Bleeding seems to have settled down. Okay from GI standpoint to go home. Admission and Anticipated Discharge Date Admission Date: May 26, 2023 Subjective Feels good. Had a large stool after being given prune juice. Nurse says there was "blood tinge" but it wasn't bloody. H/H are stable Physical Exam Physical Exam: She looks well Results & Data Vital Signs (Past 12 Hours) Vital Signs Temp Pulse Pulse Resp BP Pulse Ox Pulse Ox 05/28/23 07:36 36.4 C L 70 20 152/74 H 98 05/28/23 06:01 64 05/28/23 04:00 92 05/28/23 03:36 36.2 C L 76 20 125/68 92 O2 Del Method O2 Del Method O2 Flow Rate 05/28/23 07:36 Nasal Cannula 2 05/28/23 06:01 05/28/23 04:00 Room Air 05/28/23 03:36 Room Air
[2023-05-28] MEDS ORDERED: Heparin IV Adult Wt-Based Low-Dose *NO* INITIAL Bolus Protocol IV SCH (12:35)
[2023-05-28 14:01] LABS: INR 1.1 (0.9-1.1); Partial Thromboplastin Time 29 Seconds (21-31); Prothrombin Time 11.8 Seconds (9.0-12.0)
[2023-05-28] MEDS: HEPARIN SODIUM/DEXTROSE 25,000 UNITS/500 ML BAG IV SCH (14:22)
[2023-05-28] MEDS ORDERED: ALBUT/IPRATROP 3MG/0.5MG NEB 3 ML VIAL INH PRN (15:23)
[2023-05-28] MEDS ORDERED: NITROGLYCERIN SL 0.4 MG/TAB TAB SL PRN (15:23)
--- NOTE | 2023-05-28 15:23 | Hospitalist Progress Note ---
Date of Service May 28, 2023 Assessment & Plan (1) GIB (gastrointestinal bleeding): Plan: 73-year-old lady with PMH of CAD status post CABG [2004] status post stent [2021], PAF/PVD/subclavian steal syndrome on Coumadin, HTN, HLD, LILY on home O2 at night, T2DM insulin requiring, hypothyroidism, NAFLD, CKD, chronic anemia presented to the ED with melanotic stools with some red blood on wipes. Painless GI bleed Combined UGIB/LGIB Recent colonoscopy at [facility] on Tuesday. Status post 3 polyps removal. Hemorrhoids was noted. Patient coming in with melanotic stool and red blood on wipe. After the procedure, patient was taking aspirin, Plavix along with Coumadin/Lovenox bridge [by [facility]]. Patient has been advised to not take aspirin by her cardiology and was advised to stay on Coumadin and Plavix only. Admitting PT/INR of 1.1. Appreciate GI input and recommendation Aspirin will be discontinued on discharge Hemoglobin remains stable at 10.3 No more evidence of GI bleed and GI signed off Will start heparin and Coumadin today and likely discharge on Tuesday CAD status post CABG and stent: Resume Plavix and warfarin when cleared per GI. Continue other home medications. PAF/PVD/subclavian steal syndrome: On anticoagulation with warfarin. Will need heparin bridge when warfarin is able to be resumed. Started on intravenous heparin and Coumadin on 05/28/2023 Likely discharge on Tuesday Demand ischemia: Troponin mildly elevated, flat trend, patient with no chest pain. Continue monitor over telemetry. EKG with no acute ST or T changes. Acute kidney injury over CKD stage III: Likely prerenal. Admitting creatinine of 1.3, baseline creatinine around 0.9. Status post IV fluid, improving. Lasix and lisinopril on hold, likely resume tomorrow. Will resume Lasix and lisinopril Other chronic medical conditions: Continue with/resume home meds as and when able Hypertension: Fairly under control, continue home meds Hyperlipidemia: Continue statin, ezetimibe, fenofibrate treatment. T2DM: Sliding scale insulin while in hospital Hypothyroidism: Continue home levothyroxine DVT prophylaxis. SCDs Re: GI bleed Full code Admission and Anticipated Discharge Date Admission Date: May 26, 2023 Subjective 05/28/2023 The patient was seen and examined in medical telemetry unit She has been feeling much better and denies any more hematemesis and or melena Denies any abdominal symptoms Wondering if she could go home today Review of Systems Review of Systems: All systems reviewed and are unremarkable except as noted below Physical Exam Physical Exam: Sitting on a chair without any acute distress Constitutional: well developed, well nourished, + ill appearing and + morbidly obese Eyes: PERRL, conjunctivae normal, anicteric sclerae ENMT: external ear and nose normal, oropharynx normal Neck: trachea midline, no thyromegaly Respiratory: no respiratory distress Auscultation: + diminished lung sounds and + crackles (Minimal crackles at the bases) Cardiovascular: Rate/Rhythm: regular rate and regular rhythm; not tachycardic Heart Sounds: normal S1, normal S2 and + murmur Extremities: + edema (1+ bilaterally more on the right than the left with chronic skin changes) Gastrointestinal (Abdomen): Inspection/Auscultation: + abdomen distended and normal bowel sounds Percussion/Palpation: abdomen soft; abdomen nontender Musculoskeletal: No acute arthritis involving any of the joint Neurologic: normal touch/pain/proprioception and moves all extremities; no focal motor deficits Lymphatic: no cervical or axillary lymphadenopathy Results & Data Results & Data Vital Signs (Past 12 Hours) Vital Signs Temp Pulse Pulse Resp BP Pulse Ox Pulse Ox 05/28/23 11:15 36.6 C 61 20 154/74 H 97 05/28/23 07:36 36.4 C L 70 20 152/74 H 98 05/28/23 06:01 64 05/28/23 04:00 92 05/28/23 03:36 36.2 C L 76 20 125/68 92 O2 Del Method O2 Del Method O2 Flow Rate 05/28/23 11:15 Room Air 05/28/23 07:36 Nasal Cannula 2 05/28/23 06:01 05/28/23 04:00 Room Air 05/28/23 03:36 Room Air Laboratory Results Short CBC 05/27/23 05/27/23 05/28/23 Range/Units 14:54 22:21 05:45 WBC 7.17 (4.8-10.8) K/ul Hgb 10.3 L 9.8 L 10.3 L (12.0-16.0) g/dl Hct 31.0 L 30.3 L 31.8 L (37.0-47.0) % Plt Count 145 (130-400) K/uL BMP 05/28/23 05:45 Sodium 136 Potassium 4.7 Chloride 103 Carbon Dioxide 29 BUN 22 Creatinine 0.94 Glucose 193 H Calcium 8.8 Urine 05/27/23 Range/Units 21:35 Urine Color Yellow Urine Appearance Clear (Clear) Urine pH 6.5 (4.5-7.5) Ur Specific [place] 1.006 (1.000-1.030) Urine Protein Negative (Negative) Urine Glucose (UA) 1+ H (Negative) Medications Administered Current Inpatient Medications Acetaminophen (Acetaminophen 500 Mg Tab) 500 mg PO Q6H PRN PRN Reason: fever/pain Stop: 06/26/23 00:29 Last Admin: 05/28/23 09:17 Dose: 500 mg Carvedilol (Carvedilol 3.125 Mg Tab) 3.125 mg PO BIDM [facility] Stop: 06/26/23 07:59 Last Admin: 05/28/23 07:50 Dose: 3.125 mg Dextrose (Dextrose 50% 50 Ml Syringe) 25 - 50 ml IV UD PRN; Protocol PRN Reason: Hypoglycemia Protocol Stop: 06/26/23 01:18 Ezetimibe (Ezetimibe 10 Mg Tab) 10 mg PO QAM [facility] Stop: 06/26/23 08:59 Last Admin: 05/28/23 07:51 Dose: 10 mg Fenofibrate (Fenofibrate Nanocrystallized 48 Mg Tablet) 48 mg PO HS [facility] Stop: 06/26/23 20:59 Last Admin: 05/27/23 20:26 Dose: 48 mg Glucagon (Glucagon For Inj 1 Mg Vial) 1 mg SQ UD PRN; Protocol PRN Reason: Hypoglycemia Protocol Stop: 06/26/23 01:18 Glucose (Glucose 40% Gel 15 Gm Tube) 15 - 30 gm PO UD PRN; Protocol PRN Reason: Hypoglycemia Protocol Stop: 06/26/23 01:18 Glucose (Glucose 10 Tab/Tube) 4 - 8 tab PO UD PRN; Protocol PRN Reason: Hypoglycemia Treatment Stop: 06/26/23 01:18 Pantoprazole Sodium 40 mg/ (Syringe) 10 mls @ 5 mls/min IV BID [facility] Stop: 06/26/23 08:59 Last Admin: 05/28/23 07:50 Dose: 5 mls/min Heparin Sodium/Dextrose (Heparin Sodium/Dextrose) 25,000 units in 500 mls @ 16 mls/hr IV .Q24H [facility]; Protocol Stop: 06/27/23 12:44 Last Admin: 05/28/23 14:22 Dose: 800 units/hr, 16 mls/hr Insulin Aspart (Insulin Aspart Per Unit Charge) 0 units SC ACHS [facility] Stop: 06/26/23 01:18 Last Admin: 05/28/23 13:09 Dose: 3 units Insulin Glargine (Lantus Per Unit Charge) 5 units SQ HS [facility] Stop: 06/26/23 20:59 Last Admin: 05/27/23 21:11 Dose: 5 units Isosorbide Mononitrate (Isosorbide [place] Extended Rel 60 Mg Tabcr) 60 mg PO QAM [facility] Stop: 06/26/23 08:59 Last Admin: 05/28/23 07:51 Dose: 60 mg Levothyroxine Sodium (Levothyroxine Sodium 125 Mcg Tablet) 125 mcg PO DAILYBB [facility] Stop: 06/26/23 06:29 Last Admin: 05/28/23 05:52 Dose: 125 mcg Miscellaneous (Carbohydrates For Hypoglycemia ) 15 - 30 gm PO UD PRN PRN Reason: Hypoglycemia Protocol Stop: 06/26/23 01:18 Montelukast Sodium (Montelukast Sodium 10 Mg Tablet) 10 mg PO QAM [facility] Stop: 06/26/23 08:59 Last Admin: 05/28/23 07:52 Dose: 10 mg Multivitamins (Multivitamin Tab) 1 tab PO DAILY [facility] Stop: 06/26/23 08:59 Last Admin: 05/28/23 07:51 Dose: 1 tab Rosuvastatin Calcium (Rosuvastatin Calcium 20 Mg Tab) 40 mg PO QAM [facility] Stop: 06/26/23 08:59 Last Admin: 05/28/23 07:52 Dose: 40 mg Sotalol HCl (Sotalol Hcl 80 Mg Tab) 40 mg PO AMHS [facility] Stop: 06/26/23 08:59 Last Admin: 05/28/23 07:50 Dose: 40 mg Tramadol HCl (Tramadol Hcl 50 Mg Tablet) 25 mg PO Q4H PRN PRN Reason: Pain Stop: 06/26/23 00:29 Warfarin Sodium (Warfarin Sod 5 Mg Tab) 5 mg PO DAILY@1600 [facility] Stop: 06/27/23 15:59
[2023-05-28] MEDS: WARFARIN SOD 5 MG TAB PO SCH (17:40)
[2023-05-28] MEDS: lisinopril 20 MG TAB PO SCH (20:13)
[2023-05-28] MEDS: FLUOCINONIDE 0.05% OINT 15 GM TUBE EXT SCH (20:14)
[2023-05-28 20:45] LABS: ANTI-Xa, UFH(UnfractionatedHep 0.23 IU/ml (0.3-0.7)
[2023-05-29 04:20] LABS: Basophils # (auto) 0.03 K/uL (0.00-0.20); Basophils % (auto) 0.5 %; Eosinophils # (auto) 0.29 K/uL (0.00-0.50); Eosinophils % (auto) 4.5 %; Hematocrit (blood only) 31.3 % (37.0-47.0); Immature Granulocytes # (auto) 0.02 K/uL (0.01-0.20); Immature Granulocytes % (auto) 0.3 %; Lymphocytes # (auto) 1.78 K/uL (1.20-3.40); Lymphocytes % (auto) 27.6 %; Mean Corpuscular Hgb Conc 31.9 g/dL (32.0-36.0); Mean Corpuscular Volume 96.9 fL (80.0-100.0); Mean Platelet Volume 11.1 fL (9.4-12.4); Monocytes # (auto) 0.66 K/uL (0.11-0.59); Monocytes % (auto) 10.2 %; Neutrophils # (auto) 3.66 K/uL (1.40-6.50); Neutrophils % (auto) 56.9 %; Platelet Count 164 K/uL (130-400); RDW Coefficient of Variation 12.8 % (11.5-14.5); RDW Standard Deviation 45.1 fL (36.4-46.3); Red Blood Count 3.23 M/uL (4.20-5.40); White Blood Count 6.44 K/ul (4.8-10.8)
[2023-05-29 04:28] LABS: BUN Creatinine Ratio 18.6 (10-20); Calcium 8.8 mg/dl (8.6-10.3); Creatinine Clr Calc Pharmacy 49.8 ml/min; Est GFR (African American) 62.3 ml/min; Est GFR (Non-African American) 53.8 ml/min; Magnesium 1.6 mg/dl (1.7-2.4); Phosphorus 3.7 mg/dl (2.5-4.9); Potassium 4.5 mmol/L (3.5-5.1)
[2023-05-29 04:36] LABS: ANTI-Xa, UFH(UnfractionatedHep 0.34 IU/ml (0.3-0.7); INR 1.1 (0.9-1.1); Prothrombin Time 11.9 Seconds (9.0-12.0)
[2023-05-29] MEDS: FUROSEMIDE 20 MG TAB PO SCH (08:17)
[2023-05-29] MEDS: CYANOCOBALAMIN (B-12) 500 MCG TABLET PO SCH (08:17)
[2023-05-29] MEDS: CHOLECALCIFEROL 25 MCG (1000 UNITS) TAB PO SCH (08:17)
[2023-05-29] MEDS: CLOPIDOGREL BISULFATE 75 MG TAB PO SCH (08:17)
--- NOTE | 2023-05-29 14:09 | Hospitalist Progress Note ---
Date of Service May 29, 2023 Assessment & Plan (1) GIB (gastrointestinal bleeding): Plan: 73-year-old lady with PMH of CAD status post CABG [2004] status post stent [2021], PAF/PVD/subclavian steal syndrome on Coumadin, HTN, HLD, LILY on home O2 at night, T2DM insulin requiring, hypothyroidism, NAFLD, CKD, chronic anemia presented to the ED with melanotic stools with some red blood on wipes. Painless GI bleed Combined UGIB/LGIB Recent colonoscopy at [facility] on Tuesday. Status post 3 polyps removal. Hemorrhoids was noted. Patient coming in with melanotic stool and red blood on wipe. After the procedure, patient was taking aspirin, Plavix along with Coumadin/Lovenox bridge [by Coumadin clinic]. Patient has been advised to not take aspirin by her cardiology and was advised to stay on Coumadin and Plavix only. Admitting PT/INR of 1.1. Appreciate GI input and recommendation Aspirin will be discontinued on discharge Hemoglobin remains stable at 10.3 No more evidence of GI bleed and GI signed off Will start heparin and Coumadin today and likely discharge on Tuesday Hemoglobin has not dropped and will recheck it tomorrow CAD status post CABG and stent: Resume Plavix and warfarin when cleared per GI. Continue other home medications. PAF/PVD/subclavian steal syndrome: On anticoagulation with warfarin. Will need heparin bridge when warfarin is able to be resumed. Started on intravenous heparin and Coumadin on 05/28/2023 Remains stable without any acute symptoms Demand ischemia: Troponin mildly elevated, flat trend, patient with no chest pain. Continue monitor over telemetry. EKG with no acute ST or T changes. Acute kidney injury over CKD stage III: Likely prerenal. Admitting creatinine of 1.3, baseline creatinine around 0.9. Status post IV fluid, improving. Lasix and lisinopril on hold, likely resume tomorrow. Will resume Lasix and lisinopril Will check PRP tomorrow Other chronic medical conditions: Continue with/resume home meds as and when able Hypertension: Fairly under control, continue home meds Hyperlipidemia: Continue statin, ezetimibe, fenofibrate treatment. T2DM: Sliding scale insulin while in hospital Hypothyroidism: Continue home levothyroxine DVT prophylaxis. SCDs Re: GI bleed Full code Likely discharge tomorrow Admission and Anticipated Discharge Date Admission Date: May 26, 2023 Subjective 05/28/2023 The patient was seen and examined in medical telemetry unit She has been feeling much better and denies any more hematemesis and or melena Denies any abdominal symptoms Wondering if she could go home today 05/29/2023 The patient was seen and examined in medical telemetry unit She has been stable without any acute symptoms No more signs and or symptoms of bleeding Review of Systems Review of Systems: All systems reviewed and are unremarkable except as noted below Physical Exam Physical Exam: Sitting on a chair without any acute distress Constitutional: well developed, well nourished, + ill appearing and + morbidly obese Eyes: PERRL, conjunctivae normal, anicteric sclerae ENMT: external ear and nose normal, oropharynx normal Neck: trachea midline, no thyromegaly Respiratory: no respiratory distress Auscultation: + diminished lung sounds and + crackles (Minimal crackles at the bases) Cardiovascular: Rate/Rhythm: regular rate and regular rhythm; not tachycardic Heart Sounds: normal S1, normal S2 and + murmur Extremities: + edema (1+ bilaterally more on the right than the left with chronic skin changes) Gastrointestinal (Abdomen): Inspection/Auscultation: + abdomen distended and normal bowel sounds Percussion/Palpation: abdomen soft; abdomen nontender Neurologic: normal touch/pain/proprioception and moves all extremities; no focal motor deficits Lymphatic: no cervical or axillary lymphadenopathy Results & Data Results & Data Vital Signs (Past 12 Hours) Vital Signs Temp Pulse Pulse Pulse Resp BP Pulse Ox 05/29/23 11:42 36.5 C 52 L 16 127/66 96 05/29/23 07:35 36.5 C 70 16 178/81 H 98 05/29/23 05:59 77 05/29/23 04:00 05/29/23 03:14 36.6 C 82 20 146/66 H 100 Pulse Ox O2 Del Method O2 Del Method O2 Flow Rate O2 Flow Rate 05/29/23 11:42 Room Air 05/29/23 07:35 Room Air 05/29/23 05:59 05/29/23 04:00 100 Nasal Cannula 2 05/29/23 03:14 Nasal Cannula 2 Laboratory Results Short CBC 05/29/23 Range/Units 03:50 WBC 6.44 (4.8-10.8) K/ul Hgb 10.0 L (12.0-16.0) g/dl Hct 31.3 L (37.0-47.0) % Plt Count 164 (130-400) K/uL [facility] 05/29/23 03:50 Sodium 136 Potassium 4.5 Chloride 103 Carbon Dioxide 27 BUN 19 Creatinine 1.02 Glucose 188 H Calcium 8.8 Medications Administered Current Inpatient Medications Acetaminophen (Acetaminophen 500 Mg Tab) 500 mg PO Q6H PRN PRN Reason: fever/pain Stop: 06/26/23 00:29 Last Admin: 05/29/23 08:25 Dose: 500 mg Albuterol (Albut/Ipratrop 3mg/0.5mg Neb 3 Ml Vial) 3 ml INH Q8H PRN; Protocol PRN Reason: wheezing Stop: 06/27/23 15:22 Carvedilol (Carvedilol 3.125 Mg Tab) 3.125 mg PO BIDM [facility] Stop: 06/26/23 07:59 Last Admin: 05/29/23 08:16 Dose: 3.125 mg Clopidogrel Bisulfate (Clopidogrel Bisulfate 75 Mg Tab) 75 mg PO [facility] Stop: 06/28/23 08:59 Last Admin: 05/29/23 08:17 Dose: 75 mg Cyanocobalamin (Cyanocobalamin (B-12) 500 Mcg Tablet) 1,000 mcg PO [facility] Stop: 06/28/23 08:59 Last Admin: 05/29/23 08:17 Dose: 1,000 mcg Dextrose (Dextrose 50% 50 Ml Syringe) 25 - 50 ml IV UD PRN; Protocol PRN Reason: Hypoglycemia Protocol Stop: 06/26/23 01:18 Ezetimibe (Ezetimibe 10 Mg Tab) 10 mg PO [facility] Stop: 06/26/23 08:59 Last Admin: 05/29/23 08:17 Dose: 10 mg Fenofibrate (Fenofibrate Nanocrystallized 48 Mg Tablet) 48 mg PO [facility] Stop: 06/26/23 20:59 Last Admin: 05/28/23 20:14 Dose: 48 mg Fluocinonide (Fluocinonide 0.05% Oint 15 Gm Tube) 1 appln EXT BID [facility]; Protocol Stop: 06/27/23 20:59 Last Admin: 05/29/23 08:19 Dose: 1 appln Furosemide (Furosemide 20 Mg Tab) 20 mg PO QAM [facility] Stop: 06/28/23 08:59 Last Admin: 05/29/23 08:17 Dose: 20 mg Glucagon (Glucagon For Inj 1 Mg Vial) 1 mg SQ UD PRN; Protocol PRN Reason: Hypoglycemia Protocol Stop: 06/26/23 01:18 Glucose (Glucose 40% Gel 15 Gm Tube) 15 - 30 gm PO UD PRN; Protocol PRN Reason: Hypoglycemia Protocol Stop: 06/26/23 01:18 Glucose (Glucose 10 Tab/Tube) 4 - 8 tab PO UD PRN; Protocol PRN Reason: Hypoglycemia Treatment Stop: 06/26/23 01:18 Pantoprazole Sodium 40 mg/ (Syringe) 10 mls @ 5 mls/min IV BID [facility] Stop: 06/26/23 08:59 Last Admin: 05/29/23 08:16 Dose: 5 mls/min Heparin Sodium/Dextrose (Heparin Sodium/Dextrose) 25,000 units in 500 mls @ 17 mls/hr IV .Q24H [facility]; Protocol Stop: 06/27/23 12:44 Last Titration: 05/29/23 07:08 Dose: 850 units/hr, 17 mls/hr Insulin Aspart (Insulin Aspart Per Unit Charge) [address] [facility] Stop: 06/26/23 01:18 Last Admin: 05/29/23 12:50 Dose: 7 units Insulin Glargine (Lantus Per Unit Charge) 5 units SQ HS [facility] Stop: 06/26/23 20:59 Last Admin: 05/28/23 21:09 Dose: 5 units Isosorbide Mononitrate (Isosorbide [place] Extended Rel 60 Mg Tabcr) [facility] Stop: 06/26/23 08:59 Last Admin: 05/29/23 08:17 Dose: 60 mg Levothyroxine Sodium (Levothyroxine Sodium 125 Mcg Tablet) 125 mcg PO DAILYBB [facility] Stop: 06/26/23 06:29 Last Admin: 05/29/23 04:15 Dose: 125 mcg Lisinopril (Lisinopril 20 Mg Tab) 20 mg PO HS [facility] Stop: 06/27/23 20:59 Last Admin: 05/28/23 20:13 Dose: 20 mg Miscellaneous (Carbohydrates For Hypoglycemia ) 15 - 30 gm PO UD PRN PRN Reason: Hypoglycemia Protocol Stop: 06/26/23 01:18 Montelukast Sodium (Montelukast Sodium 10 Mg Tablet) 10 mg PO QAM [facility] Stop: 06/26/23 08:59 Last Admin: 05/29/23 08:17 Dose: 10 mg Multivitamins (Multivitamin Tab) 1 tab PO DAILY [facility] Stop: 06/26/23 08:59 Last Admin: 05/29/23 08:17 Dose: 1 tab Nitroglycerin (Nitroglycerin Sl 0.4 Mg/Tab Tab) 0.4 mg SL UD PRN PRN Reason: Chest Pain Stop: 06/27/23 15:22 Rosuvastatin Calcium (Rosuvastatin Calcium 20 Mg Tab) 40 mg [facility] Stop: 06/26/23 08:59 Last Admin: 05/29/23 08:18 Dose: 40 mg Sotalol HCl (Sotalol Hcl 80 Mg Tab) 40 mg PO [facility] Stop: 06/26/23 08:59 Last Admin: 05/29/23 08:17 Dose: 40 mg Tramadol HCl (Tramadol Hcl 50 Mg Tablet) 25 mg PO Q4H PRN PRN Reason: Pain Stop: 06/26/23 00:29 Vitamin D (Cholecalciferol 25 Mcg (1000 Units) Tab) 25 mcg [facility] Stop: 06/28/23 08:59 Last Admin: 05/29/23 08:17 Dose: 25 mcg Warfarin Sodium (Warfarin Sod 5 Mg Tab) 5 mg PO DAILY@1600 [facility] Stop: 06/27/23 15:59 Last Admin: 05/28/23 17:40 Dose: 5 mg
[2023-05-29] MEDS: WARFARIN SOD 7.5 MG TAB PO SCH (17:01)
[2023-05-29] MEDS: traMADol HCL 50 MG TABLET PO PRN (20:06)
[2023-05-30 06:58] LABS: Basophils # (auto) 0.02 K/uL (0.00-0.20); Basophils % (auto) 0.3 %; Eosinophils # (auto) 0.29 K/uL (0.00-0.50); Eosinophils % (auto) 4.2 %; Hematocrit (blood only) 30.2 % (37.0-47.0); Hemoglobin 9.9 g/dl (12.0-16.0); Immature Granulocytes # (auto) 0.03 K/uL (0.01-0.20); Immature Granulocytes % (auto) 0.4 %; Lymphocytes # (auto) 2.04 K/uL (1.20-3.40); Lymphocytes % (auto) 29.4 %; Mean Corpuscular Hemoglobin 31.5 pg (25.0-34.0); Mean Corpuscular Hgb Conc 32.8 g/dL (32.0-36.0); Mean Corpuscular Volume 96.2 fL (80.0-100.0); Mean Platelet Volume 10.9 fL (9.4-12.4); Monocytes # (auto) 0.88 K/uL (0.11-0.59); Monocytes % (auto) 12.7 %; Neutrophils # (auto) 3.68 K/uL (1.40-6.50); Platelet Count 173 K/uL (130-400); RDW Coefficient of Variation 12.9 % (11.5-14.5); RDW Standard Deviation 44.4 fL (36.4-46.3); Red Blood Count 3.14 M/uL (4.20-5.40); White Blood Count 6.94 K/ul (4.8-10.8)
[2023-05-30 07:27] LABS: ANTI-Xa, UFH(UnfractionatedHep 0.37 IU/ml (0.3-0.7); INR 1.1 (0.9-1.1); Prothrombin Time 11.8 Seconds (9.0-12.0)
[2023-05-30 07:28] LABS: BUN Creatinine Ratio 16.2 (10-20); Calcium 8.6 mg/dl (8.6-10.3); Creatinine Clr Calc Pharmacy 38.1 ml/min; Potassium 4.6 mmol/L (3.5-5.1)
--- NOTE | 2023-05-30 17:05 | Hospitalist Progress Note ---
Date of Service May 30, 2023 Assessment & Plan (1) GIB (gastrointestinal bleeding): Plan: 73-year-old lady with PMH of CAD status post CABG [2004] status post stent [2021], PAF/PVD/subclavian steal syndrome on Coumadin, HTN, HLD, LILY on home O2 at night, T2DM insulin requiring, hypothyroidism, NAFLD, CKD, chronic anemia presented to the ED with melanotic stools with some red blood on wipes. Painless GI bleed Combined UGIB/LGIB Recent colonoscopy at [facility] on Tuesday. Status post 3 polyps removal. Hemorrhoids was noted. Patient coming in with melanotic stool and red blood on wipe. After the procedure, patient was taking aspirin, Plavix along with Coumadin/Lovenox bridge [by Coumadin clinic]. Patient has been advised to not take aspirin by her cardiology and was advised to stay on Coumadin and Plavix only. Admitting PT/INR of 1.1. Appreciate GI input and recommendation Aspirin will be discontinued on discharge Hemoglobin remains stable at 10.3 No more evidence of GI bleed and GI signed off Will start heparin and Coumadin today and likely discharge on Tuesday Hemoglobin remains stable at 9.9 CAD status post CABG and stent: Resume Plavix and warfarin when cleared per GI. Continue other home medications. PAF/PVD/subclavian steal syndrome: On anticoagulation with warfarin. Will need heparin bridge when warfarin is able to be resumed. Started on intravenous heparin and Coumadin on 05/28/2023 Remains stable without any acute symptoms Demand ischemia: Troponin mildly elevated, flat trend, patient with no chest pain. Continue monitor over telemetry. EKG with no acute ST or T changes. Acute kidney injury over CKD stage III: Likely prerenal. Admitting creatinine of 1.3, baseline creatinine around 0.9. Status post IV fluid, improving. Lasix and lisinopril on hold, likely resume tomorrow. Will resume Lasix and lisinopril Will check PRP tomorrow-creatinine slightly up at 1.36 Advised to drink more fluid Other chronic medical conditions: Continue with/resume home meds as and when able Hypertension: Fairly under control, continue home meds Hyperlipidemia: Continue statin, ezetimibe, fenofibrate treatment. T2DM: Sliding scale insulin while in hospital Hypothyroidism: Continue home levothyroxine DVT prophylaxis. SCDs Re: GI bleed Restarted on Coumadin and heparin Going slow due to recent GI bleed INR is not yet therapeutic Likely discharge tomorrow Full code Admission and Anticipated Discharge Date Admission Date: May 30, 2023 Subjective 05/28/2023 The patient was seen and examined in medical telemetry unit She has been feeling much better and denies any more hematemesis and or melena Denies any abdominal symptoms Wondering if she could go home today 05/29/2023 The patient was seen and examined in medical telemetry unit She has been stable without any acute symptoms No more signs and or symptoms of bleeding 08/29/2023 The patient was seen and examined in medical telemetry unit She has been feeling better denies any significant symptom Her INR remains static at 1.1 Will give Coumadin 7.5 mg today Review of Systems Review of Systems: All systems reviewed and are unremarkable except as noted below Physical Exam Physical Exam: Sitting on a chair without any acute distress Constitutional: well developed, well nourished, + ill appearing and + morbidly obese Eyes: PERRL, conjunctivae normal, anicteric sclerae ENMT: external ear and nose normal, oropharynx normal Neck: trachea midline, no thyromegaly Respiratory: no respiratory distress Auscultation: + diminished lung sounds and + crackles (Minimal crackles at the bases) Cardiovascular: Rate/Rhythm: regular rate and regular rhythm; not tachycardic Heart Sounds: normal S1, normal S2 and + murmur Extremities: + edema (1+ bilaterally more on the right than the left with chronic skin changes) Gastrointestinal (Abdomen): Inspection/Auscultation: + abdomen distended and normal bowel sounds Percussion/Palpation: abdomen soft; abdomen nontender Neurologic: normal touch/pain/proprioception and moves all extremities; no focal motor deficits Lymphatic: no cervical or axillary lymphadenopathy Results & Data Results & Data Vital Signs (Past 12 Hours) Vital Signs Temp Pulse Pulse Resp BP Pulse Ox O2 Del Method 05/30/23 15:05 37.0 C 63 18 177/77 H 100 Room Air 05/30/23 15:01 62 05/30/23 11:25 36.4 C L 54 L 18 157/63 H 98 Room Air 05/30/23 08:30 Room Air 05/30/23 07:23 75 05/30/23 07:17 36.5 C 64 18 149/81 H 97 Room Air Laboratory Results Short CBC 05/30/23 Range/Units 06:26 WBC 6.94 (4.8-10.8) K/ul Hgb 9.9 L (12.0-16.0) g/dl Hct 30.2 L (37.0-47.0) % Plt Count 173 (130-400) K/uL [facility] 05/30/23 06:26 Sodium 132 L Potassium 4.6 Chloride 98 Carbon Dioxide 28 BUN 22 Creatinine 1.36 H D Glucose 180 H Calcium 8.6 Medications Administered Current Inpatient Medications Acetaminophen (Acetaminophen 500 Mg Tab) 500 mg PO Q6H PRN PRN Reason: fever/pain Stop: 06/26/23 00:29 Last Admin: 05/30/23 08:36 Dose: 500 mg Albuterol (Albut/Ipratrop 3mg/0.5mg Neb 3 Ml Vial) 3 ml INH Q8H PRN; Protocol PRN Reason: wheezing Stop: 06/27/23 15:22 Carvedilol (Carvedilol 3.125 Mg Tab) 3.125 mg PO BIDM [facility] Stop: 06/26/23 07:59 Last Admin: 05/30/23 08:30 Dose: 3.125 mg Clopidogrel Bisulfate (Clopidogrel Bisulfate 75 Mg Tab) [facility] Stop: 06/28/23 08:59 Last Admin: 05/30/23 08:31 Dose: 75 mg Cyanocobalamin (Cyanocobalamin (B-12) 500 Mcg Tablet) 1,000 mcg [facility] Stop: 06/28/23 08:59 Last Admin: 05/30/23 08:31 Dose: 1,000 mcg Dextrose (Dextrose 50% 50 Ml Syringe) 25 - 50 ml IV UD PRN; Protocol PRN Reason: Hypoglycemia Protocol Stop: 06/26/23 01:18 Ezetimibe (Ezetimibe 10 Mg Tab) 10 mg [facility] Stop: 06/26/23 08:59 Last Admin: 05/30/23 08:31 Dose: 10 mg Fenofibrate (Fenofibrate Nanocrystallized 48 Mg Tablet) 48 mg PO [facility] Stop: 06/26/23 20:59 Last Admin: 05/29/23 20:00 Dose: 48 mg Fluocinonide (Fluocinonide 0.05% Oint 15 Gm Tube) 1 appln EXT BID [facility]; Protocol Stop: 06/27/23 20:59 Last Admin: 05/30/23 08:33 Dose: 1 appln Furosemide (Furosemide 20 Mg Tab) 20 mg PO QAM [facility] Stop: 06/28/23 08:59 Last Admin: 05/30/23 08:31 Dose: 20 mg Glucagon (Glucagon For Inj 1 Mg Vial) 1 mg SQ UD PRN; Protocol PRN Reason: Hypoglycemia Protocol Stop: 06/26/23 01:18 Glucose (Glucose 40% Gel 15 Gm Tube) 15 - 30 gm PO UD PRN; Protocol PRN Reason: Hypoglycemia Protocol Stop: 06/26/23 01:18 Glucose (Glucose 10 Tab/Tube) 4 - 8 tab PO UD PRN; Protocol PRN Reason: Hypoglycemia Treatment Stop: 06/26/23 01:18 Pantoprazole Sodium 40 mg/ (Syringe) 10 mls @ 5 mls/min IV BID [facility] Stop: 06/26/23 08:59 Last Admin: 05/30/23 08:31 Dose: 5 mls/min Heparin Sodium/Dextrose (Heparin Sodium/Dextrose) 25,000 units in 500 mls @ 17 mls/hr IV .Q24H [facility]; Protocol Stop: 06/27/23 12:44 Last Titration: 05/30/23 07:32 Dose: 850 units/hr, 17 mls/hr Insulin Aspart (Insulin Aspart Per Unit Charge) 0 units SC [facility] Stop: 06/26/23 01:18 Last Admin: 05/30/23 12:47 Dose: 6 units Insulin Glargine (Lantus Per Unit Charge) 5 units SQ [facility] Stop: 06/26/23 20:59 Last Admin: 05/29/23 20:29 Dose: 5 units Isosorbide Mononitrate (Isosorbide [place] Extended Rel 60 Mg Tabcr) 60 mg [facility] Stop: 06/26/23 08:59 Last Admin: 05/30/23 08:31 Dose: 60 mg Levothyroxine Sodium (Levothyroxine Sodium 125 Mcg Tablet) [facility] Stop: 06/26/23 06:29 Last Admin: 05/30/23 04:49 Dose: 125 mcg Lisinopril (Lisinopril 20 Mg Tab) 20 mg PO [facility] Stop: 06/27/23 20:59 Last Admin: 05/29/23 20:00 Dose: 20 mg Miscellaneous (Carbohydrates For Hypoglycemia ) 15 - 30 gm PO UD PRN PRN Reason: Hypoglycemia Protocol Stop: 06/26/23 01:18 Montelukast Sodium (Montelukast Sodium 10 Mg Tablet) 10 mg PO QAM [facility] Stop: 06/26/23 08:59 Last Admin: 05/30/23 08:31 Dose: 10 mg Multivitamins (Multivitamin Tab) 1 tab PO DAILY [facility] Stop: 06/26/23 08:59 Last Admin: 05/30/23 08:31 Dose: 1 tab Nitroglycerin (Nitroglycerin Sl 0.4 Mg/Tab Tab) 0.4 mg SL UD PRN PRN Reason: Chest Pain Stop: 06/27/23 15:22 Rosuvastatin Calcium (Rosuvastatin Calcium 20 Mg Tab) 40 mg [facility] Stop: 06/26/23 08:59 Last Admin: 05/30/23 08:31 Dose: 40 mg Sotalol HCl (Sotalol Hcl 80 Mg Tab) 40 mg PO [facility] Stop: 06/26/23 08:59 Last Admin: 05/30/23 08:30 Dose: 40 mg Tramadol HCl (Tramadol Hcl 50 Mg Tablet) 25 mg PO Q4H PRN PRN Reason: Pain Stop: 06/26/23 00:29 Last Admin: 05/29/23 20:06 Dose: 25 mg Vitamin D (Cholecalciferol 25 Mcg (1000 Units) Tab) 25 mcg [facility] Stop: 06/28/23 08:59 Last Admin: 05/30/23 08:32 Dose: 25 mcg Warfarin Sodium (Warfarin Sod 7.5 Mg Tab) 7.5 mg PO DAILY@1600 [facility] Stop: 06/28/23 15:59 Last Admin: 05/29/23 17:01 Dose: 7.5 mg
[2023-05-31 06:53] LABS: Basophils # (auto) 0.02 K/uL (0.00-0.20); Basophils % (auto) 0.3 %; Eosinophils % (auto) 5.2 %; Hematocrit (blood only) 28.5 % (37.0-47.0); Hemoglobin 9.6 g/dl (12.0-16.0); Immature Granulocytes # (auto) 0.02 K/uL (0.01-0.20); Immature Granulocytes % (auto) 0.3 %; Lymphocytes # (auto) 1.78 K/uL (1.20-3.40); Lymphocytes % (auto) 30.7 %; Mean Corpuscular Hemoglobin 31.7 pg (25.0-34.0); Mean Corpuscular Hgb Conc 33.7 g/dL (32.0-36.0); Mean Corpuscular Volume 94.1 fL (80.0-100.0); Monocytes # (auto) 0.72 K/uL (0.11-0.59); Monocytes % (auto) 12.4 %; Neutrophils # (auto) 2.95 K/uL (1.40-6.50); Neutrophils % (auto) 51.1 %; Platelet Count 190 K/uL (130-400); RDW Coefficient of Variation 12.9 % (11.5-14.5); Red Blood Count 3.03 M/uL (4.20-5.40); White Blood Count 5.79 K/ul (4.8-10.8)
[2023-05-31 07:12] LABS: ANTI-Xa, UFH(UnfractionatedHep 0.35 IU/ml (0.3-0.7); BUN Creatinine Ratio 18.5 (10-20); Calcium 8.7 mg/dl (8.6-10.3); Creatinine Clr Calc Pharmacy 38.3 ml/min; Est GFR (African American) 44.4 ml/min; Est GFR (Non-African American) 38.3 ml/min; INR 1.1 (0.9-1.1); Potassium 4.5 mmol/L (3.5-5.1); Prothrombin Time 12.4 Seconds (9.0-12.0)
--- NOTE | 2023-05-31 15:52 | Hospitalist Progress Note ---
Date of Service May 31, 2023 Assessment & Plan (1) GIB (gastrointestinal bleeding): Plan: 73-year-old lady with PMH of CAD status post CABG [2004] status post stent [2021], PAF/PVD/subclavian steal syndrome on Coumadin, HTN, HLD, LILY on home O2 at night, T2DM insulin requiring, hypothyroidism, NAFLD, CKD, chronic anemia presented to the ED with melanotic stools with some red blood on wipes. Painless GI bleed Combined UGIB/LGIB Recent colonoscopy at [facility] on Tuesday. Status post 3 polyps removal. Hemorrhoids was noted. Patient coming in with melanotic stool and red blood on wipe. After the procedure, patient was taking aspirin, Plavix along with Coumadin/Lovenox bridge [by Coumadin clinic]. Patient has been advised to not take aspirin by her cardiology and was advised to stay on Coumadin and Plavix only. Admitting PT/INR of 1.1. Appreciate GI input and recommendation Aspirin will be discontinued on discharge Hemoglobin remains stable at 10.3 No more evidence of GI bleed and GI signed off Will start heparin and Coumadin today and likely discharge on Tuesday Hemoglobin remains stable at 9.9 No more signs and or symptoms of GI bleed CAD status post CABG and stent: Resume Plavix and warfarin when cleared per GI. Continue other home medications. PAF/PVD/subclavian steal syndrome: On anticoagulation with warfarin. Will need heparin bridge when warfarin is able to be resumed. Started on intravenous heparin and Coumadin on 05/28/2023 Remains stable without any acute symptoms Has been on heparin to prevent any clot formation and has been getting Coumadin as well Demand ischemia: Troponin mildly elevated, flat trend, patient with no chest pain. Continue monitor over telemetry. EKG with no acute ST or T changes. Acute kidney injury over CKD stage III: Likely prerenal. Admitting creatinine of 1.3, baseline creatinine around 0.9. Status post IV fluid, improving. Lasix and lisinopril on hold, likely resume tomorrow. Will resume Lasix and lisinopril Will check PRP tomorrow-creatinine slightly up at 1.36 Advised to drink more fluid Other chronic medical conditions: Continue with/resume home meds as and when able Hypertension: Fairly under control, continue home meds Hyperlipidemia: Continue statin, ezetimibe, fenofibrate treatment. T2DM: Sliding scale insulin while in hospital Hypothyroidism: Continue home levothyroxine DVT prophylaxis. SCDs Re: GI bleed Restarted on Coumadin and heparin Going slow due to recent GI bleed INR is not yet therapeutic Will increase the dose of Coumadin to 10 mg tonight and monitor INR tomorrow Full code Admission and Anticipated Discharge Date Admission Date: May 30, 2023 Subjective 05/28/2023 The patient was seen and examined in medical telemetry unit She has been feeling much better and denies any more hematemesis and or melena Denies any abdominal symptoms Wondering if she could go home today 05/29/2023 The patient was seen and examined in medical telemetry unit She has been stable without any acute symptoms No more signs and or symptoms of bleeding 05/30/2023 The patient was seen and examined in medical telemetry unit She has been feeling better denies any significant symptom Her INR remains static at 1.1 Will give Coumadin 7.5 mg today 05/31/2023 The patient was seen and examined in medical telemetry unit She has been stable without any symptoms Unfortunately her INR has not moved a little bit Review of Systems Review of Systems: All systems reviewed and are unremarkable except as noted below Physical Exam Physical Exam: Sitting on a chair without any acute distress Constitutional: well developed, well nourished, + ill appearing and + morbidly obese Eyes: PERRL, conjunctivae normal, anicteric sclerae ENMT: external ear and nose normal, oropharynx normal Neck: trachea midline, no thyromegaly Respiratory: no respiratory distress Auscultation: + diminished lung sounds and + crackles (Minimal crackles at the bases) Cardiovascular: Rate/Rhythm: regular rate and regular rhythm; not tachycardic Heart Sounds: normal S1, normal S2 and + murmur Extremities: + edema (1+ bilaterally more on the right than the left with chronic skin changes) Gastrointestinal (Abdomen): Inspection/Auscultation: + abdomen distended and normal bowel sounds Percussion/Palpation: abdomen soft; abdomen nontender Musculoskeletal: No acute arthritis involving any of the joint Neurologic: normal touch/pain/proprioception and moves all extremities; no focal motor deficits Lymphatic: no cervical or axillary lymphadenopathy Results & Data Results & Data Vital Signs (Past 12 Hours) Vital Signs Temp Pulse Pulse Resp BP Pulse Ox O2 Del Method 05/31/23 11:50 36.5 C 92 H 18 138/72 95 Room Air 05/31/23 08:21 36.9 C 80 18 149/71 H 93 Room Air 05/31/23 07:32 72 Laboratory Results Short CBC 05/31/23 Range/Units 06:02 WBC 5.79 (4.8-10.8) K/ul Hgb 9.6 L (12.0-16.0) g/dl Hct 28.5 L (37.0-47.0) % Plt Count 190 (130-400) K/uL BMP 05/31/23 06:02 Sodium 132 L Potassium 4.5 Chloride 96 L Carbon Dioxide 29 BUN 25 H Creatinine 1.35 H Glucose 200 H Calcium 8.7 Medications Administered Current Inpatient Medications Acetaminophen (Acetaminophen 500 Mg Tab) 500 mg PO Q6H PRN PRN Reason: fever/pain Stop: 06/26/23 00:29 Last Admin: 05/31/23 08:26 Dose: 500 mg Albuterol (Albut/Ipratrop 3mg/0.5mg Neb 3 Ml Vial) 3 ml INH Q8H PRN; Protocol PRN Reason: wheezing Stop: 06/27/23 15:22 Carvedilol (Carvedilol 3.125 Mg Tab) 3.125 mg PO BIDM [facility] Stop: 06/26/23 07:59 Last Admin: 05/31/23 08:26 Dose: 3.125 mg Clopidogrel Bisulfate (Clopidogrel Bisulfate 75 Mg Tab) [facility] Stop: 06/28/23 08:59 Last Admin: 05/31/23 08:27 Dose: 75 mg Cyanocobalamin (Cyanocobalamin (B-12) 500 Mcg Tablet) 1,000 mcg [facility] Stop: 06/28/23 08:59 Last Admin: 05/31/23 08:27 Dose: 1,000 mcg Dextrose (Dextrose 50% 50 Ml Syringe) 25 - 50 ml IV UD PRN; Protocol PRN Reason: Hypoglycemia Protocol Stop: 06/26/23 01:18 Ezetimibe (Ezetimibe 10 Mg Tab) [facility] Stop: 06/26/23 08:59 Last Admin: 05/31/23 08:27 Dose: 10 mg Fenofibrate (Fenofibrate Nanocrystallized 48 Mg Tablet) 48 mg PO HS [facility] Stop: 06/26/23 20:59 Last Admin: 05/30/23 21:12 Dose: 48 mg Fluocinonide (Fluocinonide 0.05% Oint 15 Gm Tube) 1 appln EXT BID [facility]; Protocol Stop: 06/27/23 20:59 Last Admin: 05/31/23 08:26 Dose: 1 appln Furosemide (Furosemide 20 Mg Tab) 20 mg PO QAM [facility] Stop: 06/28/23 08:59 Last Admin: 05/31/23 08:27 Dose: 20 mg Glucagon (Glucagon For Inj 1 Mg Vial) 1 mg SQ UD PRN; Protocol PRN Reason: Hypoglycemia Protocol Stop: 06/26/23 01:18 Glucose (Glucose 40% Gel 15 Gm Tube) 15 - 30 gm PO UD PRN; Protocol PRN Reason: Hypoglycemia Protocol Stop: 06/26/23 01:18 Glucose (Glucose 10 Tab/Tube) 4 - 8 tab PO UD PRN; Protocol PRN Reason: Hypoglycemia Treatment Stop: 06/26/23 01:18 Pantoprazole Sodium 40 mg/ (Syringe) 10 mls @ 5 mls/min IV BID [facility] Stop: 06/26/23 08:59 Last Admin: 05/31/23 08:26 Dose: 5 mls/min Heparin Sodium/Dextrose (Heparin Sodium/Dextrose) 25,000 units in 500 mls @ 17 mls/hr IV .Q24H [facility]; Protocol Stop: 06/27/23 12:44 Last Titration: 05/31/23 07:16 Dose: 850 units/hr, 17 mls/hr Insulin Aspart (Insulin Aspart Per Unit Charge) 0 units SC ACHS [facility] Stop: 06/26/23 01:18 Last Admin: 05/31/23 12:45 Dose: 6 units Insulin Glargine (Lantus Per Unit Charge) 5 units SQ HS [facility] Stop: 06/26/23 20:59 Last Admin: 05/30/23 21:10 Dose: 5 units Isosorbide Mononitrate (Isosorbide [place] Extended Rel 60 Mg Tabcr) 60 mg PO QAM [facility] Stop: 06/26/23 08:59 Last Admin: 05/31/23 08:27 Dose: 60 mg Levothyroxine Sodium (Levothyroxine Sodium 125 Mcg Tablet) 125 mcg PO DAILYBB [facility] Stop: 06/26/23 06:29 Last Admin: 05/31/23 04:50 Dose: 125 mcg Lisinopril (Lisinopril 20 Mg Tab) 20 mg PO HS [facility] Stop: 06/27/23 20:59 Last Admin: 05/30/23 21:12 Dose: 20 mg Miscellaneous (Carbohydrates For Hypoglycemia ) 15 - 30 gm PO UD PRN PRN Reason: Hypoglycemia Protocol Stop: 06/26/23 01:18 Montelukast Sodium (Montelukast Sodium 10 Mg Tablet) 10 mg PO QAM [facility] Stop: 06/26/23 08:59 Last Admin: 05/31/23 08:27 Dose: 10 mg Multivitamins (Multivitamin Tab) 1 tab PO DAILY [facility] Stop: 06/26/23 08:59 Last Admin: 05/31/23 08:27 Dose: 1 tab Nitroglycerin (Nitroglycerin Sl 0.4 Mg/Tab Tab) 0.4 mg SL UD PRN PRN Reason: Chest Pain Stop: 06/27/23 15:22 Rosuvastatin Calcium (Rosuvastatin Calcium 20 Mg Tab) 40 [facility] Stop: 06/26/23 08:59 Last Admin: 05/31/23 08:27 Dose: 40 mg Sotalol HCl (Sotalol Hcl 80 Mg Tab) 40 mg PO [facility] Stop: 06/26/23 08:59 Last Admin: 05/31/23 08:26 Dose: 40 mg Tramadol HCl (Tramadol Hcl 50 Mg Tablet) 25 mg PO Q4H PRN PRN Reason: Pain Stop: 06/26/23 00:29 Last Admin: 05/29/23 20:06 Dose: 25 mg Vitamin D (Cholecalciferol 25 Mcg (1000 Units) Tab) 25 mcg PO QAM [facility] Stop: 06/28/23 08:59 Last Admin: 05/31/23 08:27 Dose: 25 mcg Warfarin Sodium (Warfarin Sod 10 Mg Tab) 10 mg PO DAILY@1600 [facility] Stop: 06/30/23 15:59
[2023-05-31] MEDS: WARFARIN SOD 10 MG TAB PO SCH (17:13)
[2023-06-01 06:48] LABS: ANTI-Xa, UFH(UnfractionatedHep 0.33 IU/ml (0.3-0.7); INR 1.3 (0.9-1.1); Prothrombin Time 14.2 Seconds (9.0-12.0)
--- NOTE | 2023-06-01 12:57 | Hospitalist Progress Note ---
Date of Service June 01, 2023 Assessment & Plan (1) GIB (gastrointestinal bleeding): Plan: 73-year-old lady with PMH of CAD status post CABG [2004] status post stent [2021], PAF/PVD/subclavian steal syndrome on Coumadin, HTN, HLD, LILY on home O2 at night, T2DM insulin requiring, hypothyroidism, NAFLD, CKD, chronic anemia presented to the ED with melanotic stools with some red blood on wipes. Painless GI bleed -following colonoscopy and removal of 3 polyps. Doubt any complication of the procedure Combined UGIB/LGIB Recent colonoscopy at [facility] on Tuesday. Status post 3 polyps removal. Hemorrhoids was noted. Patient coming in with melanotic stool and red blood on wipe. After the procedure, patient was taking aspirin, Plavix along with Coumadin/Lovenox bridge [by Coumadin clinic]. Patient has been advised to not take aspirin by her cardiology and was advised to stay on Coumadin and Plavix only. Admitting PT/INR of 1.1. Appreciate GI input and recommendation Aspirin will be discontinued on discharge Hemoglobin remains stable at 10.3 No more evidence of GI bleed and GI signed off Will start heparin and Coumadin today and likely discharge on Tuesday Hemoglobin remains stable at 9.9 No more signs and or symptoms of GI bleed INR is still not yet therapeutic which is 1.3 in spite of increasing the dose of Coumadin Will need to continue with 10 mg today and check INR tomorrow CAD status post CABG and stent: Resume Plavix and warfarin when cleared per GI. Continue other home medications. PAF/PVD/subclavian steal syndrome: On anticoagulation with warfarin. Will need heparin bridge when warfarin is able to be resumed. Started on intravenous heparin and Coumadin on 05/28/2023 Remains stable without any acute symptoms Has been on heparin to prevent any clot formation and has been getting Coumadin as well Will continue heparin and Coumadin today patient remains asymptomatic Demand ischemia: Troponin mildly elevated, flat trend, patient with no chest pain. Continue monitor over telemetry. EKG with no acute ST or T changes. Acute kidney injury over CKD stage III: Likely prerenal. Admitting creatinine of 1.3, baseline creatinine around 0.9. Status post IV fluid, improving. Lasix and lisinopril on hold, likely resume tomorrow. Will resume Lasix and lisinopril Will check PRP tomorrow-creatinine slightly up at 1.36 Advised to drink more fluid Other chronic medical conditions: Continue with/resume home meds as and when able Hypertension: Fairly under control, continue home meds Hyperlipidemia: Continue statin, ezetimibe, fenofibrate treatment. T2DM: Sliding scale insulin while in hospital Sliding scale has been updated to maintain blood sugar which has been high for the last few days Hypothyroidism: Continue home levothyroxine DVT prophylaxis. SCDs Re: GI bleed Restarted on Coumadin and heparin Going slow due to recent GI bleed INR is not yet therapeutic Will increase the dose of Coumadin to 10 mg tonight and monitor INR tomorrow again Likely discharge tomorrow if INR remains more than 1.6-1.7 Full code Admission and Anticipated Discharge Date Admission Date: May 30, 2023 Subjective 05/28/2023 The patient was seen and examined in medical telemetry unit She has been feeling much better and denies any more hematemesis and or melena Denies any abdominal symptoms Wondering if she could go home today 05/29/2023 The patient was seen and examined in medical telemetry unit She has been stable without any acute symptoms No more signs and or symptoms of bleeding 05/30/2023 The patient was seen and examined in medical telemetry unit She has been feeling better denies any significant symptom Her INR remains static at 1.1 Will give Coumadin 7.5 mg today 05/31/2023 The patient was seen and examined in medical telemetry unit She has been stable without any symptoms Unfortunately her INR has not moved a little bit 06/01/2023 The patient was seen and examined in the medical telemetry unit She has been sitting on a chair out of bed without any acute distress or symptoms Her blood sugar has been running high INR is not yet therapeutic Review of Systems Review of Systems: All systems reviewed and are unremarkable except as noted below Physical Exam Physical Exam: Sitting on a chair without any acute distress Constitutional: well developed, well nourished, + ill appearing and + morbidly obese Eyes: PERRL, conjunctivae normal, anicteric sclerae ENMT: external ear and nose normal, oropharynx normal Neck: trachea midline, no thyromegaly Respiratory: no respiratory distress Auscultation: + diminished lung sounds and + crackles (Minimal crackles at the bases) Cardiovascular: Rate/Rhythm: regular rate and regular rhythm; not tachycardic Heart Sounds: normal S1, normal S2 and + murmur Extremities: + edema (1+ bilaterally more on the right than the left with chronic skin changes) Gastrointestinal (Abdomen): Inspection/Auscultation: + abdomen distended and normal bowel sounds Percussion/Palpation: abdomen soft; abdomen nontender Musculoskeletal: No acute arthritis involving any of the joints Neurologic: normal touch/pain/proprioception and moves all extremities; no focal motor deficits Lymphatic: no cervical or axillary lymphadenopathy Results & Data Results & Data Vital Signs (Past 12 Hours) Vital Signs Temp Pulse Pulse Resp BP Pulse Ox O2 Del Method 06/01/23 11:55 36.5 C 93 H 16 129/68 94 Room Air 06/01/23 08:10 36.6 C 54 L 16 155/75 H 99 Room Air 06/01/23 05:55 70 06/01/23 02:58 36.4 C L 68 20 139/83 100 Room Air Medications Administered Current Inpatient Medications Acetaminophen (Acetaminophen 500 Mg Tab) 500 mg PO Q6H PRN PRN Reason: fever/pain Stop: 06/26/23 00:29 Last Admin: 06/01/23 08:25 Dose: 500 mg Albuterol (Albut/Ipratrop 3mg/0.5mg Neb 3 Ml Vial) 3 ml INH Q8H PRN; Protocol PRN Reason: wheezing Stop: 06/27/23 15:22 Carvedilol (Carvedilol 3.125 Mg Tab) 3.125 mg PO BIDM [facility] Stop: 06/26/23 07:59 Last Admin: 06/01/23 08:27 Dose: 3.125 mg Clopidogrel Bisulfate (Clopidogrel Bisulfate 75 Mg Tab) [facility] Stop[facility] 06/28/23 08:59 Last Admin: 06/01/23 08:28 Dose: 75 mg Cyanocobalamin (Cyanocobalamin (B-12) 500 Mcg Tablet) 1,000 [facility]cg [facility] Stop: 06/28/23 08:59 Last Admin: 06/01/23 08:27 Dose: 1,000 mcg Dextrose (Dextrose 50% 50 Ml Syringe) 25 - 50 ml IV UD PRN; Protocol PRN Reason: Hypoglycemia Protocol Stop: 06/26/23 01:18 Ezetimibe (Ezetimibe 10 Mg Tab) 10 mg PO QAM [facility] Stop: 06/26/23 08:59 Last Admin: 06/01/23 08:28 Dose: 10 mg Fenofibrate (Fenofibrate Nanocrystallized 48 Mg Tablet) 48 mg PO HS [facility] Stop: 06/26/23 20:59 Last Admin: 05/31/23 20:48 Dose: 48 mg Fluocinonide (Fluocinonide 0.05% Oint 15 Gm Tube) 1 appln EXT BID [facility]; Protocol Stop: 06/27/23 20:59 Last Admin: 06/01/23 08:26 Dose: Not Given Furosemide (Furosemide 20 Mg Tab) [facility] Stop: 06/28/23 08:59 Last Admin: 06/01/23 08:27 Dose: 20 mg Glucagon (Glucagon For Inj 1 Mg Vial) 1 mg SQ UD PRN; Protocol PRN Reason: Hypoglycemia Protocol Stop: 06/26/23 01:18 Glucose (Glucose 40% Gel 15 Gm Tube) 15 - 30 gm PO UD PRN; Protocol PRN Reason: Hypoglycemia Protocol Stop: 06/26/23 01:18 Glucose (Glucose 10 Tab/Tube) 4 - 8 tab PO UD PRN; Protocol PRN Reason: Hypoglycemia Treatment Stop: 06/26/23 01:18 Pantoprazole Sodium 40 mg/ (Syringe) 10 mls @ 5 mls/min IV BID [facility] Stop: 06/26/23 08:59 Last Admin: 06/01/23 08:26 Dose: 5 mls/min Heparin Sodium/Dextrose (Heparin Sodium/Dextrose) 25,000 units in 500 mls @ 17 mls/hr IV .Q24H [facility]; Protocol Stop: 06/27/23 12:44 Last Admin: 06/01/23 12:40 Dose: 850 units/hr, 17 mls/hr Insulin Aspart (Insulin Aspart Per Unit Charge) 0 units SC ACHS [facility] Stop: 06/26/23 01:18 Last Admin: 06/01/23 12:40 Dose: 10 units Insulin Glargine (Lantus Per Unit Charge) 10 units SQ [facility] Stop: 07/01/23 20:59 Isosorbide Mononitrate (Isosorbide [place] Extended Rel 60 Mg Tabcr) [facility] Stop: 06/26/23 08:59 Last Admin: 06/01/23 08:27 Dose: 60 mg Levothyroxine Sodium (Levothyroxine Sodium 125 Mcg Tablet) 125 mcg PO DAILYBB [facility] Stop: 06/26/23 06:29 Last Admin: 06/01/23 05:10 Dose: 125 mcg Lisinopril (Lisinopril 20 Mg Tab) 20 mg PO HS [facility] Stop: 06/27/23 20:59 Last Admin: 05/31/23 20:47 Dose: 20 mg Miscellaneous (Carbohydrates For Hypoglycemia ) 15 - 30 gm PO UD PRN PRN Reason: Hypoglycemia Protocol Stop: 06/26/23 01:18 Montelukast Sodium (Montelukast Sodium 10 Mg Tablet) 10 mg PO QAM [facility] Stop: 06/26/23 08:59 Last Admin: 06/01/23 08:27 Dose: 10 mg Multivitamins (Multivitamin Tab) 1 tab PO DAILY [facility] Stop: 06/26/23 08:59 Last Admin: 06/01/23 08:28 Dose: 1 tab Nitroglycerin (Nitroglycerin Sl 0.4 Mg/Tab Tab) 0.4 mg SL UD PRN PRN Reason: Chest Pain Stop: 06/27/23 15:22 Rosuvastatin Calcium (Rosuvastatin Calcium 20 Mg Tab) 40 mg PO QAM [facility] Stop: 06/26/23 08:59 Last Admin: 06/01/23 08:28 Dose: 40 mg Sotalol HCl (Sotalol Hcl 80 Mg Tab) 40 mg PO AMHS [facility] Stop: 06/26/23 08:59 Last Admin: 06/01/23 08:27 Dose: 40 mg Tramadol HCl (Tramadol Hcl 50 Mg Tablet) 25 mg PO Q4H PRN PRN Reason: Pain Stop: 06/26/23 00:29 Last Admin: 05/29/23 20:06 Dose: 25 mg Vitamin D (Cholecalciferol 25 Mcg (1000 Units) Tab) 25 mcg PO QAM [facility] Stop: 06/28/23 08:59 Last Admin: 06/01/23 08:27 Dose: 25 mcg Warfarin Sodium (Warfarin Sod 10 Mg Tab) 10 mg PO DAILY@1600 [facility] Stop: 06/30/23 15:59 Last Admin: 05/31/23 17:13 Dose: 10 mg
[2023-06-01] MEDS: LANTUS PER UNIT CHARGE SQ SCH (22:18)
[2023-06-02 06:50] LABS: ANTI-Xa, UFH(UnfractionatedHep 0.37 IU/ml (0.3-0.7); INR 1.7 (0.9-1.1); Prothrombin Time 17.7 Seconds (9.0-12.0)
--- NOTE | 2023-06-02 12:22 | Hospitalist Progress Note ---
Date of Service June 02, 2023 Assessment & Plan (1) GIB (gastrointestinal bleeding): Plan: 73-year-old lady with PMH of CAD status post CABG [2004] status post stent [2021], PAF/PVD/subclavian steal syndrome on Coumadin, HTN, HLD, LILY on home O2 at night, T2DM insulin requiring, hypothyroidism, NAFLD, CKD, chronic anemia presented to the ED with melanotic stools with some red blood on wipes. Painless GI bleed -following colonoscopy and removal of 3 polyps. Doubt any complication of the procedure Combined UGIB/LGIB Recent colonoscopy at [facility] on Tuesday. Status post 3 polyps removal. Hemorrhoids was noted. Patient coming in with melanotic stool and red blood on wipe. After the procedure, patient was taking aspirin, Plavix along with Coumadin/Lovenox bridge [by Coumadin clinic]. Patient has been advised to not take aspirin by her cardiology and was advised to stay on Coumadin and Plavix only. Admitting PT/INR of 1.1. Appreciate GI input and recommendation Aspirin will be discontinued on discharge Hemoglobin remains stable at 10.3 No more evidence of GI bleed and GI signed off Will start heparin and Coumadin today and likely discharge on Tuesday Hemoglobin remains stable at 9.9 No more signs and or symptoms of GI bleed INR is still not yet therapeutic which is 1.3 in spite of increasing the dose of Coumadin No evidence of GI bleed or GI symptoms She is eager to go home and wants to go home today possible CAD status post CABG and stent: Resume Plavix and warfarin when cleared per GI. Continue other home medications. PAF/PVD/subclavian steal syndrome: On anticoagulation with warfarin. Will need heparin bridge when warfarin is able to be resumed. Started on intravenous heparin and Coumadin on 05/28/2023 Remains stable without any acute symptoms Has been on heparin to prevent any clot formation and has been getting Coumadin as well Will continue heparin and Coumadin today patient remains asymptomatic We will recheck her INR this afternoon and likely discharge following that check Demand ischemia: Troponin mildly elevated, flat trend, patient with no chest pain. Continue tor over telemetry. EKG with no acute ST or T changes. Acute kidney injury over CKD stage III: Likely prerenal. Admitting creatinine of 1.3, baseline creatinine around 0.9. Status post IV fluid, improving. Lasix and lisinopril on hold, likely resume tomorrow. Will resume Lasix and lisinopril Will check PRP tomorrow-creatinine slightly up at 1.36 Advised to drink more fluid Other chronic medical conditions: Continue with/resume home meds as and when able Hypertension: Fairly under control, continue home meds Hyperlipidemia: Continue statin, ezetimibe, fenofibrate treatment. T2DM: Sliding scale insulin while in hospital Sliding scale has been updated to maintain blood sugar which has been high for the last few days Hypothyroidism: Continue home levothyroxine DVT prophylaxis. SCDs Re: GI bleed Restarted on Coumadin and heparin Going slow due to recent GI bleed INR is not yet therapeutic Will increase the dose of Coumadin to 10 mg tonight and monitor INR tomorrow again Likely discharge tomorrow if INR remains more than 1.6-1.7 INR is 1.7 today Likely discharge this afternoon with repeat INR check at 4:00 today She will need to have a follow-up with the coagulation clinic on Tuesday Full code Admission and Anticipated Discharge Date Admission Date: May 30, 2023 Subjective 05/28/2023 The patient was seen and examined in medical telemetry unit She has been feeling much better and denies any more hematemesis and or melena Denies any abdominal symptoms Wondering if she could go home today 05/29/2023 The patient was seen and examined in medical telemetry unit She has been stable without any acute symptoms No more signs and or symptoms of bleeding 05/30/2023 The patient was seen and examined in medical telemetry unit She has been feeling better denies any significant symptom Her INR remains static at 1.1 Will give Coumadin 7.5 mg today 05/31/2023 The patient was seen and examined in medical telemetry unit She has been stable without any symptoms Unfortunately her INR has not moved a little bit 06/01/2023 The patient was seen and examined in the medical telemetry unit She has been sitting on a chair out of bed without any acute distress or symptoms Her blood sugar has been running high INR is not yet therapeutic 06/02/2023 The patient was seen and examined in medical telemetry unit She has been feeling better and denies any significant symptoms Minimal leg swelling from sitting down on a chair for a long time and not been moving around Denies any chest pain or palpitation Eager to go home Review of Systems Review of Systems: All systems reviewed and are unremarkable except as noted below Physical Exam Physical Exam: Sitting on a chair without any acute distress Constitutional: well developed, well nourished, + ill appearing and + morbidly obese Eyes: PERRL, conjunctivae normal, anicteric sclerae ENMT: external ear and nose normal, oropharynx normal Neck: trachea midline, no thyromegaly Respiratory: no respiratory distress Auscultation: + diminished lung sounds and + crackles (Minimal crackles at the bases) Cardiovascular: Rate/Rhythm: regular rate and regular rhythm; not tachycardic Heart Sounds: normal S1, normal S2 and + murmur Extremities: + edema (1+ bilaterally more on the right than the left with chronic skin changes) Gastrointestinal (Abdomen): Inspection/Auscultation: + abdomen distended and normal bowel sounds Percussion/Palpation: abdomen soft; abdomen nontender Musculoskeletal: No acute arthritis involving any of the joint Neurologic: normal touch/pain/proprioception and moves all extremities; no focal motor deficits Lymphatic: no cervical or axillary lymphadenopathy Results & Data Results & Data Vital Signs (Past 12 Hours) Vital Signs Temp Pulse Pulse Resp BP Pulse Ox Pulse Ox 06/02/23 11:45 36.9 C 57 L 16 118/61 96 06/02/23 08:01 36.6 C 67 16 152/82 H 98 06/02/23 07:03 06/02/23 05:57 76 06/02/23 05:02 93 06/02/23 03:13 36.5 C 77 20 135/71 99 O2 Del Method O2 Del Method 06/02/23 11:45 Room Air 06/02/23 08:01 Room Air 06/02/23 07:03 Room Air 06/02/23 05:57 06/02/23 05:02 Nasal Cannula 06/02/23 03:13 Room Air Medications Administered Current Inpatient Medications Acetaminophen (Acetaminophen 500 Mg Tab) 500 mg PO Q6H PRN PRN Reason: fever/pain Stop: 06/26/23 00:29 Last Admin: 06/02/23 07:08 Dose: 500 mg Albuterol (Albut/Ipratrop 3mg/0.5mg Neb 3 Ml Vial) 3 ml INH Q8H PRN; Protocol PRN Reason: wheezing Stop: 06/27/23 15:22 Carvedilol (Carvedilol 3.125 Mg Tab) 3.125 mg PO BIDM [facility] Stop: 06/26/23 07:59 Last Admin: 06/02/23 09:53 Dose: 3.125 mg Clopidogrel Bisulfate (Clopidogrel Bisulfate 75 Mg Tab) 75 mg PO [facility] Stop: 06/28/23 08:59 Last Admin: 06/02/23 08:44 Dose: 75 mg Cyanocobalamin (Cyanocobalamin (B-12) 500 Mcg Tablet) 1,000 mcg PO [facility] Stop: 06/28/23 08:59 Last Admin: 06/02/23 08:45 Dose: 1,000 mcg Dextrose (Dextrose 50% 50 Ml Syringe) 25 - 50 ml IV UD PRN; Protocol PRN Reason: Hypoglycemia Protocol Stop: 06/26/23 01:18 Ezetimibe (Ezetimibe 10 Mg Tab) 10 mg PO [facility] Stop: 06/26/23 08:59 Last Admin: 06/02/23 08:43 Dose: 10 mg Fenofibrate (Fenofibrate Nanocrystallized 48 Mg Tablet) 48 mg PO [facility] Stop: 06/26/23 20:59 Last Admin: 06/01/23 22:13 Dose: 48 mg Fluocinonide (Fluocinonide 0.05% Oint 15 Gm Tube) 1 appln EXT BID [facility]; Protocol Stop: 06/27/23 20:59 Last Admin: 06/02/23 07:12 Dose: Not Given Furosemide (Furosemide 20 Mg Tab) 20 mg PO [facility] Stop: 06/28/23 08:59 Last Admin: 06/02/23 08:45 Dose: 20 mg Glucagon (Glucagon For Inj 1 Mg Vial) 1 mg SQ UD PRN; Protocol PRN Reason: Hypoglycemia Protocol Stop: 06/26/23 01:18 Glucose (Glucose 40% Gel 15 Gm Tube) 15 - 30 gm PO UD PRN; Protocol PRN Reason: Hypoglycemia Protocol Stop: 06/26/23 01:18 Glucose (Glucose 10 Tab/Tube) 4 - 8 tab PO UD PRN; Protocol PRN Reason: Hypoglycemia Treatment Stop: 06/26/23 01:18 Pantoprazole Sodium 40 mg/ (Syringe) 10 mls @ 5 mls/min IV BID [facility] Stop: 06/26/23 08:59 Last Admin: 06/02/23 09:53 Dose: 5 mls/min Heparin Sodium/Dextrose (Heparin Sodium/Dextrose) 25,000 units in 500 mls @ 17 mls/hr IV .Q24H [facility]; Protocol Stop: 06/27/23 12:44 Last Titration: 06/02/23 07:10 Dose: 850 units/hr, 17 mls/hr Insulin Aspart (Insulin Aspart Per Unit Charge) 0 units SC ACHS [facility] Stop: 06/26/23 01:18 Last Admin: 06/02/23 08:50 Dose: 9 units Insulin Glargine (Lantus Per Unit Charge) 10 units SQ HS [facility] Stop: 07/01/23 20:59 Last Admin: 06/01/23 22:18 Dose: 10 units Isosorbide Mononitrate (Isosorbide [place] Extended Rel 60 Mg Tabcr) 60 [facility] Stop: 06/26/23 08:59 Last Admin: 06/02/23 08:45 Dose: 60 mg Levothyroxine Sodium (Levothyroxine Sodium 125 Mcg Tablet) [facility] Stop: 06/26/23 06:29 Last Admin: 06/02/23 06:38 Dose: 125 mcg Lisinopril (Lisinopril 20 Mg Tab) 20 mg PO [facility] Stop: 06/27/23 20:59 Last Admin: 06/01/23 22:14 Dose: 20 mg Miscellaneous (Carbohydrates For Hypoglycemia ) 15 - 30 gm PO UD PRN PRN Reason: Hypoglycemia Protocol Stop: 06/26/23 01:18 Montelukast Sodium (Montelukast Sodium 10 Mg Tablet) 10 mg [facility] Stop: 06/26/23 08:59 Last Admin: 06/02/23 08:46 Dose: 10 mg Multivitamins (Multivitamin Tab) 1 tab PO DAILY [facility] Stop: 06/26/23 08:59 Last Admin: 06/02/23 08:46 Dose: 1 tab Nitroglycerin (Nitroglycerin Sl 0.4 Mg/Tab Tab) 0.4 mg SL UD PRN PRN Reason: Chest Pain Stop: 06/27/23 15:22 Rosuvastatin Calcium (Rosuvastatin Calcium 20 Mg Tab) 40 mg [facility] Stop: 06/26/23 08:59 Last Admin: 06/02/23 08:44 Dose: 40 mg Sotalol HCl (Sotalol Hcl 80 Mg Tab) 40 mg PO [facility] Stop: 06/26/23 08:59 Last Admin: 06/02/23 08:45 Dose: 40 mg Tramadol HCl (Tramadol Hcl 50 Mg Tablet) 25 mg PO Q4H PRN PRN Reason: Pain Stop: 06/26/23 00:29 Last Admin: 05/29/23 20:06 Dose: 25 mg Vitamin D (Cholecalciferol 25 Mcg (1000 Units) Tab) 25 mcg PO QAM [facility] Stop: 06/28/23 08:59 Last Admin: 06/02/23 08:44 Dose: 25 mcg Warfarin Sodium (Warfarin Sod 10 Mg Tab) 10 mg PO DAILY@1600 [facility] Stop: 06/30/23 15:59 Last Admin: 06/01/23 16:10 Dose: 10 mg
[2023-06-02 16:31] LABS: INR 1.9 (0.9-1.1); Prothrombin Time 20.3 Seconds (9.0-12.0)
--- NOTE | 2023-06-03 07:35 | Discharge Summary ---
Date of Service May 31, 2023 Admission HPI Per Admitting Provider History obtained from patient and records. Medical history significant for CAD status post CABG (2004) sp stent (2021), PAF/PVD/subclavian steal syndrome as per records on Coumadin, valvular heart disease (mild MS/MR/TR), hypertension, hyperlipidemia, LILY on home O2 at night, DM2 insulin requiring, hypothyroidism, NAFLD, CRI (baseline creatinine 1.3), chronic anemia (baseline hemoglobin of 11). Last confinement June 2021 for NSTEMI. Stent placement for LAD in-stent restenosis and angioplasty of first diagonal with balloon. Patient seen at [facility] cardiology office on follow-up visit 2 months ago. Lovenox bridge with assistance of anticoagulation clinic recommended for outpatient colonoscopy at [facility] scheduled for May 25, 2023. Patient should remain on Plavix during procedure as per provider note. Patient told that she could hold the aspirin which patient has refused to stop for some time now due to patient fears of stent occlusion. Cardiology providers have counseled her in the past regarding increased risk of bleeding with triple therapy (aspirin, Plavix and Coumadin) Patient underwent outpatient colonoscopy at [facility] yesterday. GI provider aware of possible miscommunication regarding her Plavix medication as per patient. Findings below : Hemorrhoids found on perianal exam. One 1 mm polyp in the ascending colon, removed with a cold biopsy forceps. Resected and retrieved. Two 2 mm polyps in the transverse colon, removed with a cold snare. Resected and retrieved. A tattoo was seen in the sigmoid colon. A post-polypectomy scar was found at the tattoo site. There was no evidence of residual polyp tissue. Internal hemorrhoids. Hematochezia without abdominal pain noted upon arrival at home as per patient. She was told to expect some bleeding by GI doctor. ER evaluation recommended if bleeding worsened or with any abdominal pain/dizziness symptoms. Patient continued to take home aspirin and Plavix along with Coumadin and Lovenox injection recommended by Coumadin clinic. Patient later noted melanotic stools at home. No headache, no chest pain, no SOB, no abdominal pain. Patient brought to ER for evaluation. 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, [employer] Admission Exam Per Admitting Provider Physical Exam: GENERAL: Comfortable, morbidly obese, pleasant, slightly hard of hearing no respiratory distress SKIN: Pallor, warm HEENT: Sparse hair, pale palpebral conjunctivae, no ptosis, dry buccal mucosa NECK : Supple, no tenderness CHEST : CTA, no tenderness HEART : RRR, systolic murmur ABDOMEN: Some distention, nontender EXTREMITIES : Minimal LE swelling, no LE tenderness, no other conspicuous deformities noted NEUROLOGIC : Coherent, no facial asymmetry, slightly hard of hearing, no other gross focality Principal Diagnosis Gastrointestinal bleeding, status post colonoscopy with 3 polyps removal, CAD status post CABG and stent placement, PAF/PVD/subclavian steal syndrome on Coumadin Discharge Exam Sitting on a chair without any acute distress Constitutional well developed, well nourished, + ill appearing and + morbidly obese Eyes PERRL, conjunctivae normal, anicteric sclerae ENMT external ear and nose normal, oropharynx normal Neck trachea midline, no thyromegaly Respiratory no respiratory distress Auscultation: + diminished lung sounds and + crackles (Minimal crackles at the bases) Cardiovascular Rate/Rhythm: regular rate and regular rhythm; not tachycardic Heart Sounds: normal S1, normal S2 and + murmur Extremities: + edema (1+ bilaterally more on the right than the left with chronic skin changes) Gastrointestinal (Abdomen) Inspection/Auscultation: + abdomen distended and normal bowel sounds Percussion/Palpation: abdomen soft; abdomen nontender Neurologic normal touch/pain/proprioception and moves all extremities; no focal motor deficits Lymphatic no cervical or axillary lymphadenopathy Discharge Data Allergies Allergy/AdvReac Type Severity Reaction Status Date / Time Iodinated Contrast Media Allergy Intermediate TEARS AND Verified 05/16/23 11:08 FACE BECAME VERY REDDENED oxycodone Allergy Intermediate itchy Verified 05/16/23 11:08 vaccine adjuvant system, Allergy psoarsis Verified 05/26/23 23:28 AS01B liposomal [From Shingrix (PF)] varicella-zoster virus Allergy psoarsis Verified 05/26/23 23:28 glycoprotein E, recombinant [From Shingrix (PF)] diltiazem AdvReac Unknown Unknown Verified 05/16/23 11:08 Blood-Group Specific Allergy Unknown NO BLOOD Uncoded 05/16/23 11:08 Substance PRODUCTS Consultations 05/26/23 22:57 ED Decision to Admit Stat 05/27/23 01:19 Consult Gastroenterology Routine Hospital Course (1) GIB (gastrointestinal bleeding): 73-year-old lady with PMH of CAD status post CABG [2004] status post stent [2021], PAF/PVD/subclavian steal syndrome on Coumadin, HTN, HLD, LILY on home O2 at night, T2DM insulin requiring, hypothyroidism, NAFLD, CKD, chronic anemia presented to the ED with melanotic stools with some red blood on wipes. Painless GI bleed -following colonoscopy and removal of 3 polyps. Doubt any complication of the procedure Combined UGIB/LGIB Recent colonoscopy at [facility] on Tuesday. Status post 3 polyps removal. Hemorrhoids was noted. Patient coming in with melanotic stool and red blood on wipe. After the procedure, patient was taking aspirin, Plavix along with Coumadin/Lovenox bridge [by Coumadin clinic]. Patient has been advised to not take aspirin by her cardiology and was advised to stay on Coumadin and Plavix only. Admitting PT/INR of 1.1. Appreciate GI input and recommendation Aspirin will be discontinued on discharge Hemoglobin remains stable at 10.3 No more evidence of GI bleed and GI signed off Will start heparin and Coumadin today and likely discharge on Tuesday Hemoglobin remains stable at 9.9 No more signs and or symptoms of GI bleed INR is still not yet therapeutic which is 1.3 in spite of increasing the dose of Coumadin No evidence of GI bleed or GI symptoms She is eager to go home and wants to go home today possible CAD status post CABG and stent: Resume Plavix and warfarin when cleared per GI. Continue other home medications. PAF/PVD/subclavian steal syndrome: On anticoagulation with warfarin. Will need heparin bridge when warfarin is able to be resumed. Started on intravenous heparin and Coumadin on 05/28/2023 Remains stable without any acute symptoms Has been on heparin to prevent any clot formation and has been getting Coumadin as well Will continue heparin and Coumadin today patient remains asymptomatic We will recheck her INR this afternoon and likely discharge following that check Demand ischemia: Troponin mildly elevated, flat trend, patient with no chest pain. Continue monitor over telemetry. EKG with no acute ST or T changes. Acute kidney injury over CKD stage III: Likely prerenal. Admitting creatinine of 1.3, baseline creatinine around 0.9. Status post IV fluid, improving. Lasix and lisinopril on hold, likely resume tomorrow. Will resume Lasix and lisinopril Will check PRP tomorrow-creatinine slightly up at 1.36 Advised to drink more fluid Other chronic medical conditions: Continue with/resume home meds as and when able Hypertension: Fairly under control, continue home meds Hyperlipidemia: Continue statin, ezetimibe, fenofibrate treatment. T2DM: Sliding scale insulin while in hospital Sliding scale has been updated to maintain blood sugar which has been high for the last few days Hypothyroidism: Continue home levothyroxine DVT prophylaxis. SCDs Re: GI bleed Restarted on Coumadin and heparin Going slow due to recent GI bleed INR is not yet therapeutic Will increase the dose of Coumadin to 10 mg tonight and monitor INR tomorrow again Likely discharge tomorrow if INR remains more than 1.6-1.7 INR is 1.7 today Likely discharge this afternoon with repeat INR check at 4:00 today She will need to have a follow-up with the coagulation clinic on Tuesday Full code Total Time Total Time Spent Total Time Spent (In Minutes): 35 minutes Discharge Plan Discharge Items Patient Disposition: Home - Self-Care Reason For Visit: HTN URG, UGIB Discharge Diagnosis: Gastrointestinal bleeding, status post colonoscopy with 3 polyps removal, CAD status post CABG and stent placement, PAF/PVD/subclavian steal syndrome on Coumadin Condition on Discharge: Good Activity: Resume your previous activity Non-emergency contact: Primary Care Provider Call non-emergency contact if: you have any medication questions and your symptoms worsen Follow-up/Referrals: Jessica Pompa MD [Primary Care Provider] - (Date & Time 06/07/2023 11:00 AM Provider Juju Reno MD Department General Internal Medicine [facility] ) Diet: Carb Consistent or DM2 and Heart Healthy Addtl Attending Provider Instructions: Please take precautions to avoid falls Take your medications as advised Avoid any NSAIDs like aspirin, Advil, naproxen, ibuprofen etc. Do not take any more warfarin today. Start warfarin from tomorrow You need to have a follow-up with coagulation clinic on Tuesday Please have follow-up appointments with the healthcare providers Pending Studies at Discharge: No Stand-Alone Forms: My [facility], Smoking Cessation Medications and DC Order Prescriptions: Continued (DME) pen needle, diabetic [BD Ultra-Fine Mini Pen Needle] 31 gauge x 3/16" needle See Rx Instructions .ROUTE .MEDSUPPLY Qty: 400 3RF Rx Instructions: use 4 needles daily - PLEASE HAVE LAB WORK DONE BELLE! insulin glargine [Lantus Solostar U-100 Insulin] 100 unit/mL (3 mL) insulin pen 30 unit SQ HS Qty: 30 3RF Rx Instructions: 30 units subcut daily; ezetimibe 10 mg tablet 10 mg PO QAM acetaminophen [Tylenol Arthritis Pain] 650 mg tablet extended release 1,300 mg PO Q12H (DME) Dexcom G6 Sensor Device See Rx Instructions .Route Rx Instructions: As directed fenofibrate 54 mg tablet 54 mg PO HS magnesium oxide 400 mg magnesium capsule 400 mg PO BID nitroglycerin 0.4 mg tablet, sublingual 0.4 mg sublingual UD PRN (Reason: Chest Pain) Rx Instructions: place under tongue 1 tab every 5 minutes as needed for chest pain,up to 3 d oses in 15 minutes omega-3 fatty acids-fish oil 684-1,200 mg capsule,delayed release(DR/EC) 2 cap PO QAM rosuvastatin 40 mg tablet 40 mg PO QAM clopidogrel 75 mg Tablet 75 mg PO QAM Qty: 30 1RF isosorbide mononitrate 60 mg Tablet Extended Release 24 Hr 60 mg PO QAM 30 Days Qty: 30 2RF ipratropium-albuterol 0.5 mg-3 mg(2.5 mg base)/3 mL solution for nebulization 3 ml INH Q8H PRN (Reason: wheezing) Qty: 90 0RF Rx Instructions: J10.1, R05 cyanocobalamin (vitamin B-12) [Vitamin B-12] 1,000 mcg Tablet 1,000 mcg PO QAM warfarin 5 mg Tablet 5 mg PO HS montelukast 10 mg Tablet 10 mg PO QAM cholecalciferol (vitamin D3) [Vitamin D3] 25 mcg (1,000 unit) Tablet 25 mcg PO QAM sotalol 80 mg tablet 40 mg PO AM[facility] lisinopril 20 mg tablet 20 mg PO HS carvedilol 3.125 mg tablet 3.125 mg PO BIDM Rx Instructions: take with morning and evening meals levothyroxine 125 mcg tablet 125 mcg PO DAILYBB Patient Comments: Patient needs this here soon 30 min before other meds. Rx Instructions: Take with full glass of water on empty stomach; take 30 minutes before other meds multivitamin Tablet 1 tab PO DAILY insulin lispro [Humalog U-100 Insulin] 100 unit/mL Solution See Rx Instructions .ROUTE .COMPLEX Rx Instructions: inject under skin 45 units before breakfast,20-30 units before lunch and dinner furosemide 20 mg Tablet 20 mg PO QAM betamethasone dipropionate 0.05 % Ointment 1 applic TOPICAL BID Rx Instructions: apply to psoriasis on right wrist and left calf twice daily (or more if itchy instead of scratching) and use plastic wrap on left calf short term to improve faster Discontinued aspirin 81 mg Tablet,Delayed Release (Dr/Ec) 81 mg PO QAM Qty: 90 0RF enoxaparin 100 mg/mL Syringe 100 mg SUBCUT AMHS Discharge Orders: Discharge Order (Routine); Ordered 06/02/23 Ordered By: Mildred Will/Other Patient Handouts: Vitamin K Diet for Warfarin, Warfarin Oral Tablet, Anticoagulants, What to Know When TakingWarfarin, Managing Type 2 Diabetes, ED Upper GI Bleeding (Stable) Admission Data Admit Date/Time: 05/30/23 09:04 Attending Provider: Mildred Lloyd Admit Provider: Jordan Doherty Primary Care Provider: Jessica Pompa Other Providers: Jordan Doherty; Issa Hurtado; Bola Reyes Other Interventions: Discharge Summary Assessment (RN) Last Done: 06/02/23 17:06
== END 2023-06-02 17:31 | disposition home or self-care (01) | DRG 378 ==
LOC: EDINP 19:56 → ED 19:56 → SUATTDRO 23:59 → 2N 05-27 01:19
DX: Z79.890 Hormone replacement therapy; E66.01 Morbid (severe) obesity due to excess calories; Z95.5 Presence of coronary angioplasty implant and graft; I24.89 Other forms of acute ischemic heart disease; E11.22 Type 2 diabetes mellitus with diabetic chronic kidney disease; Z95.1 Presence of aortocoronary bypass graft; Z79.82 Long term (current) use of aspirin; I48.91 Unspecified atrial fibrillation; Z99.89 Dependence on other enabling machines and devices; Z68.41 Body mass index [BMI] 40.0-44.9, adult; Z88.8 Allergy status to other drugs, medicaments and biological substances; Z79.01 Long term (current) use of anticoagulants; E11.319 Type 2 diabetes mellitus with unspecified diabetic retinopathy without macular edema; R79.89 Other specified abnormal findings of blood chemistry; G45.8 Other transient cerebral ischemic attacks and related syndromes; E03.9 Hypothyroidism, unspecified; Z79.02 Long term (current) use of antithrombotics/antiplatelets; G47.30 Sleep apnea, unspecified; I25.2 Old myocardial infarction; K76.0 Fatty (change of) liver, not elsewhere classified; I12.9 Hypertensive chronic kidney disease with stage 1 through stage 4 chronic kidney disease, or unspecified chronic kidney disease; E11.51 Type 2 diabetes mellitus with diabetic peripheral angiopathy without gangrene; Z86.73 Personal history of transient ischemic attack (TIA), and cerebral infarction without residual deficits; Z86.010 Personal history of colon polyps; Z79.899 Other long term (current) drug therapy; Z88.7 Allergy status to serum and vaccine; E78.1 Pure hyperglyceridemia; N17.9 Acute kidney failure, unspecified; K92.2 Gastrointestinal hemorrhage, unspecified; Z88.5 Allergy status to narcotic agent; N18.30 Chronic kidney disease, stage 3 unspecified; Z91.041 Radiographic dye allergy status; Z80.0 Family history of malignant neoplasm of digestive organs

== ENCOUNTER 2024-11-28 22:16 | Observation (INO) ==
--- NOTE | 2024-11-28 22:56 | Emergency Department Note ---
Impression & Plan Chest pain, Elevated troponin ED Provider Note HISTORY OF PRESENT ILLNESS: Patient is a 74-year-old female presenting with left-sided chest pain. Patient reports that she started having pain earlier this morning while she was sitting eating and breakfast. Reports that the pain has been present all day but seems to wax and wane in intensity. She states she has a history of CAD with stents and open heart surgery. She is on Coumadin, Plavix and aspirin. She currently rates her pain a 5 out of 10 and describes it as a pressure-like sensation. She was given 324 aspirin and "a lot of sublingual nitro" prehospital per the patient. Patient states she had taken Tylenol prior to calling EMS. She reports some associated shortness of breath but denies any nausea or vomiting. She denies any DVT or PE history. She has not missed any doses of her anticoagulants. ROS: as above PHYSICAL EXAM: Constitutional: Patient appears in no acute distress. Morbidly obese HENT: Head: Normocephalic and atraumatic. Eyes: EOMI, PERRL Mouth/Throat: Mucous membranes moist. Neck: Trachea midline. Neck supple. Cardiovascular: RRR, No murmurs, rubs or gallops. Intact distal pulses. Pulmonary/Chest: No respiratory distress. Breath sounds clear and equal bilaterally. No wheezes or rales. Abdominal: Abdomen soft, no tenderness, rebound or guarding. Musculoskeletal: No edema, tenderness or deformity noted. Skin: Warm and dry. No rash, erythema, pallor or cyanosis Psychiatric: Appropriate mood and affect for situation. Neurological: Alert and keenly responsive. CN II-XII grossly intact, moving all extremities equally and fully. MDM: - Vitals signs showed hypertension - History obtained via patient. History as above. - Chronic conditions affecting care: HTN; HLD; CAD (S/p PCI and CABG); DM-2; morbid obesity; CKD; CHF; Afib - Differential diagnoses include, but are not limited to: Acute coronary syndrome; pulmonary embolism; dissection; tension pneumothorax; esophageal rupture; pneumonia - Order placed for continuous cardiac monitoring. At this time, monitor showed rate of 64 bpm with normal sinus rhythm, per my interpretation. - External medical records reviewed. Nephrology office visit note dated 07/23/2024 was reviewed. Patient follows in the clinic for her CKD stage IIIb. Baseline creatinine is 1.3. - EKG image interpreted by myself showed normal sinus rhythm. Rate 75 bpm. QT 442. No acute ischemic changes. Noted to have a left anterior fascicular block. - Laboratory workup interpreted by myself showed normal WBC; therapeutic INR (2.8); stable electrolytes; hyperglycemia (glucose 213); normal AST/ALT; normal lipase; normal troponin - CXR imaging reviewed by myself is negative for pneumonia, per my interpretation. - Patient given 4 mg IV morphine and 4 mg IV zofran in ER. On reassessment, patient reports she is chest pain-free after morphine. She did have an episode of desaturation and was placed on 2 L nasal cannula. - Repeat troponin has risen to 15.9 - HEART score 4 (+2 age; +2 risk factors). - Discussion was had with director case management about patient's case and need for admission - Hospitalist consulted for admission - [facility] ASSESSMENT AND PLAN: Diagnosis: chest pain; elevated troponin Plan: admit Past Med/Surg History Problem List (Updated 11/29/24 @ 01:36 by Martha Ruiz MD) Elevated troponin (Acute) Chest pain (Acute) UGIB (upper gastrointestinal bleed) GIB (gastrointestinal bleeding) (Acute) Anemia Atrial fibrillation with rapid ventricular response (Acute) Hypertensive urgency (Acute) Stented coronary artery Elevated troponin CKD (chronic kidney disease) stage 3, GFR 30-59 ml/min Hypertensive crisis DVT prophylaxis Hypertensive urgency Unstable angina Acute diastolic heart failure Morbid obesity Fatty liver Elevated transaminase level Encounter for pre-operative examination Vitamin D deficiency (Chronic) Arteriosclerotic cardiovascular disease (ASCVD) Background diabetic retinopathy associated with type 2 diabetes mellitus Chronic kidney disease, stage 3 (moderate) Diabetes mellitus type 2, uncontrolled Diabetic nephropathy associated with type 2 diabetes mellitus Dyslipidemia Frank's thyroiditis Hypertension (02/14/11) Hypothyroidism Old myocardial infarct (02/14/11) Overweight PAD (peripheral artery disease) Percutaneous transluminal coronary angioplasty status (02/14/11) Proteinuria Pure hypercholesterolemia (02/14/11) Type 2 diabetes mellitus with complications Type 2 diabetes mellitus, with long-term current use of insulin Vitamin D deficiency No pertinent past surgical history Acute hyperglycemia Failure of outpatient treatment COPD exacerbation Diabetes Psoriasis (Chronic) Hypertriglyceridemia Retinopathy Chronic kidney disease, stage III (moderate) (Chronic) Dr Donelan Atrial fibrillation controlled with medication CHF (congestive heart failure) (Acute) Pyelonephritis Medical History Status post insertion of drug-eluting stent into left anterior descending (LAD) artery NSTEMI (non-ST elevated myocardial infarction) Osteoarthritis Colon polyp Hypothyroidism Diabetes mellitus, type 2 On anticoagulant therapy Transient ischemic attack (TIA) Hyperlipidemia Myocardial Infarction Sleep apnea On home oxygen therapy Bronchitis Hypertension Surgical History History of appendectomy History of section History of cataract surgery History of heart artery stent History of cardiac cath Hx of CABG H/O colonoscopy Family History Father Diabetes FHx: colon cancer Social History Smoking Status: Never smoker Second Hand Exposure: Yes (hx as a child); Do You Dip or Chew Tobacco: No; Hx Alcohol Use: No Hx Substance Use: No Preferred Language: Kazakh Communication Ability: Effective Visual Impairment: No Limitations Hearing Ability: Normal Axle And Frame Mechanic Required: No Beliefs That Will Affect Care: Judaism Judaism Beliefs: Sybilh Witness marital status: Unknown Current Living Situation: Alone current occupational status: retired How many Children do You have: 3 Feels Safe at Home: Yes Diet: regular caffeine: Yes (2-3 cups of tea daily, occasional diet pepsi) Physical Activity Frequency: Does not Exercise Seatbelt Use: always Gender Identity: Female Assistive Devices: Glasses and Oxygen - at Night Allergies Allergies Allergy/AdvReac Type Severity Reaction Status Date / Time Iodinated Contrast Media Allergy Intermediate TEARS AND Verified 11/28/24 22:34 FACE BECAME VERY REDDENED oxycodone Allergy Intermediate ITCHY RASH Verified 11/28/24 22:34 diltiazem AdvReac Intermediate ROBBINS, Verified 11/28/24 22:34 flushing vaccine adjuvant system, AdvReac Intermediate psoarsis Verified 11/28/24 22:34 AS01B liposomal [From Shingrix (PF)] varicella-zoster virus AdvReac Intermediate psoarsis Verified 11/28/24 22:34 glycoprotein E, recombinant [From Shingrix (PF)] Blood-Group Specific Allergy Unknown NO BLOOD Uncoded 11/28/24 22:34 Substance PRODUCTS Home Meds Home Medications Medication Instructions Recorded Confirmed rosuvastatin 40 mg tablet 40 mg PO QAM 08/09/18 11/28/24 ezetimibe 10 mg tablet 10 mg PO QAM 04/05/19 11/28/24 fenofibrate 54 mg tablet 54 mg PO QAM 04/24/20 11/28/24 magnesium oxide 400 mg PO BID 07/23/21 11/28/24 nitroglycerin 0.4 mg sublingual 0.4 mg sublingual DIRECTED PRN 05/17/22 11/28/24 tablet Chest Pain blood-glucose sensor (Dexcom G6 11/17/22 09/25/24 Sensor device) carvedilol 3.125 mg tablet 3.125 mg PO BIDM 04/28/23 11/28/24 cyanocobalamin (vitamin B-12) 1,000 mcg PO QAM 04/28/23 11/28/24 1,000 mcg tablet (Vitamin B-12) lisinopril 20 mg tablet 20 mg PO HS 04/28/23 11/28/24 montelukast 10 mg tablet 10 mg PO QAM 04/28/23 11/28/24 sotalol 80 mg tablet 40 mg PO BID 04/28/23 11/28/24 warfarin 5 mg tablet 2.5 mg PO 3XWK 04/28/23 11/28/24 betamethasone dipropionate 0.05 % 1 applic topical BID 05/27/23 11/28/24 topical ointment furosemide 20 mg tablet 20 mg PO QAM 05/27/23 11/28/24 acetaminophen 500 mg tablet 500 - 1,000 mg PO BID PRN Pain 11/28/24 11/28/24 (Tylenol Extra Strength) amlodipine 2.5 mg tablet 2.5 mg PO HS 11/28/24 11/28/24 aspirin 81 mg chewable tablet 81 mg PO DAILY 11/28/24 11/28/24 guaifenesin 600 mg tablet, 600 mg PO Q12H PRN Congestion 11/28/24 11/28/24 extended release 12 hr (Mucinex) insulin lispro 100 unit/mL 30 unit subcut AC 11/28/24 11/28/24 subcutaneous pen (Humalog KwikPen (U-100) Insulin) levothyroxine 125 mcg tablet 125 mcg PO DAILYBB 11/28/24 11/28/24 mometasone-formoterol HFA 100 2 puff inhalation BID 11/28/24 11/28/24 mcg-5 mcg/actuation aerosol inhaler (Dulera) sodium chloride 0.65 % nasal spray 1 spray intranasal .Q1H PRN 11/28/24 11/28/24 aerosol (Saline Nasal) BLOODY/DRY NOSE sodium chloride 3 % for 4 ml inhalation BID 11/28/24 11/28/24 nebulization sodium chloride-aloe vera nasal 1 spray intranasal .Q1-4HRS PRN 11/28/24 11/28/24 spray (Morrill Saline Gel nasal spray) BLOODY/DRY NOSE warfarin 5 mg tablet 5 mg PO 4XWK 11/28/24 11/28/24 Previous Rx's Medication Instructions Recorded clopidogrel 75 mg tablet 75 mg PO QAM #30 tabs 11/13/20 isosorbide mononitrate 60 mg 60 mg PO QAM 30 days #30 tabs 01/05/21 tablet,extended release 24 hr ipratropium 0.5 mg-albuterol 3 mg 3 ml inhalation Q8H PRN wheezing 09/06/21 (2.5 mg base)/3 mL nebulization #90 mL soln pen needle, diabetic 31 gauge x #400 ea 11/26/2405/06" Results & Data (ED) Vital Signs Vital Signs - 24 hr 11/28/24 22:25 11/28/24 23:02 11/28/24 23:39 Temperature 36.9 C Temperature Source Oral Pulse Rate 70 68 Pulse Rate [Apical] Pulse Rate from SpO2 Sensor Respiratory Rate 20 Respiratory Effort / Characteristics Respiratory Depth Respiratory Pattern Blood Pressure 172/80 H Blood Pressure [Right Arm] Blood Pressure Mean 110 Blood Pressure Mean [Right Arm] Pulse Oximetry 97 87 L Oxygen Delivery Method Room Air Nasal Cannula Oxygen Flow Rate Sepsis Recent Fever Within 48 Hours No Sepsis New/Unexplained Change in Mental Status No Sepsis Action Taken by Nursing No Action Required 11/28/24 23:42 11/29/24 00:30 11/29/24 00:30 Temperature Temperature Source Pulse Rate 62 Pulse Rate [Apical] 67 Pulse Rate from SpO2 Sensor 62 Respiratory Rate 16 19 Respiratory Effort / Characteristics Non-Labored Spontaneous Respiratory Depth Normal Respiratory Pattern Regular Blood Pressure 163/66 H Blood Pressure [Right Arm] 152/72 H Blood Pressure Mean 117 Blood Pressure Mean [Right Arm] 98 Pulse Oximetry 100 100 Oxygen Delivery Method Nasal Cannula Nasal Cannula Oxygen Flow Rate 2 2 Sepsis Recent Fever Within 48 Hours Sepsis New/Unexplained Change in Mental Status Sepsis Action Taken by Nursing 11/29/24 01:00 11/29/24 01:06 Temperature Temperature Source Pulse Rate 62 Pulse Rate [Apical] Pulse Rate from SpO2 Sensor 61 Respiratory Rate 18 Respiratory Effort / Characteristics Respiratory Depth Respiratory Pattern Blood Pressure 158/64 H Blood Pressure [Right Arm] Blood Pressure Mean 102 Blood Pressure Mean [Right Arm] Pulse Oximetry 99 Oxygen Delivery Method Nasal Cannula Oxygen Flow Rate 2 Sepsis Recent Fever Within 48 Hours Sepsis New/Unexplained Change in Mental Status Sepsis Action Taken by Nursing Laboratory Data 11/28/24 22:30 11/28/24 22:30 Lab Results 11/28/24 11/29/24 Range/Units 22:30 00:43 WBC 6.90 (4.8-10.8) K/ul RBC 4.18 L (4.20-5.40) M/uL Hgb 12.7 (12.0-16.0) g/dl Hct 38.6 (37.0-47.0) % MCV 92.3 (80.0-100.0) fL MCH 30.4 (25.0-34.0) pg MCHC 32.9 (32.0-36.0) g/dL RDW Std Deviation 42.7 (36.4-46.3) fL RDW Coeff of Ree 12.6 (11.5-14.5) % Plt Count 181 (130-400) K/uL MPV 11.4 (9.4-12.4) fL Immature Gran % (Auto) 0.1 % Neut % (Auto) 57.7 % Lymph % (Auto) 26.2 % Faulkner % (Auto) 12.3 % Eos % (Auto) 3.3 % Baso % (Auto) 0.4 % Neut # (Auto) 3.97 (1.40-6.50) K/uL Lymph # (Auto) 1.81 (1.20-3.40) K/uL Faulkner # (Auto) 0.85 H (0.11-0.59) K/uL Eos # (Auto) 0.23 (0.00-0.50) K/uL Baso # (Auto) 0.03 (0.00-0.20) K/uL Immature Gran # (Auto) 0.01 (0.01-0.20) K/uL PT 27.9 H (9.0-12.0) Seconds INR 2.8 H (0.9-1.1) Sodium 133 L (136-145) mmol/L Potassium 4.6 (3.5-5.1) mmol/L Chloride 97 L (98-107) mmol/L Carbon Dioxide 30 (21-32) mmol/L Anion Gap 6 (3-11) BUN 32 H (6-23) mg/dl Creatinine 1.12 (0.6-1.2) mg/dl Est Cr Clr Drug Dosing 45.6 ml/min eGFR 50.96 BUN/Creatinine Ratio 28.6 H (10-20) Glucose 213 H (70-99(Fasting)) mg/dl Calcium 9.2 (8.6-10.3) mg/dl Total Bilirubin 0.4 (0.2-1.0) mg/dl AST 24 (13-39) U/L ALT 12 (7-52) U/L Alkaline Phosphatase 64 (34-104) U/L Troponin I High Sens 13.2 15.9 H (0-14) pg/ml Total Protein 6.7 (6.0-8.3) gm/dl Albumin 3.6 (3.4-5.0) gm/dl Globulin 3.1 (2.5-4.0) gm/dl Albumin/Globulin Ratio 1.2 (0.9-2) Lipase 31 (11-82) U/L Administered Medications Discontinued Medications Morphine Sulfate (Morphine Sulfate 4 Mg/Ml 1 Ml Carp\\Vial) 4 mg IV NOW STA Stop: 11/28/24 23:00 Last Admin: 11/28/24 23:15 Dose: 4 mg Documented By: Ondansetron HCl (Ondansetron Inj 2 Mg/Ml 2 Ml Vial) 4 mg IV NOW STA Stop: 11/28/24 23:00 Last Admin: 11/28/24 23:14 Dose: 4 mg Documented By: Imaging Data Radiologist's Impression: Chest X-Ray 11/28/24 22:20 Exam(s): XR CXR 1 VIEW EXAM: XR Chest, 1 View CLINICAL HISTORY: Reason for exam: Chest pain, nonspecific. TECHNIQUE: Frontal view of the chest. COMPARISON: 02/26/2024. FINDINGS: Lungs: No consolidation. Pleural space: No pleural effusion is seen. No pneumothorax. Heart: The patient is status post midline sternotomy. The heart is normal in size.. Mediastinum: There is mild uncoiling of thoracic aorta.. Bones/joints: There are degenerative changes in the shoulders.. IMPRESSION: No acute pulmonary disease.. Electronically signed by: Vlad Garcia MD 11/28/24 23:32 PM Discharge Plan Visit Data Chief Complaint: Chest Pain Stated Complaint: chest pain ED Provider: Martha Ruiz Discharge Problem: Chest pain, Elevated troponin Condition: Fair Forms Stand Alone Forms: [facility] Prescriptions Prescriptions: No Action (DME) pen needle, diabetic 31 gauge x 3/16" needle See Rx Instructions .ROUTE .MEDSUPPLY Qty: 400 3RF Rx Instructions: use 4 needles daily ezetimibe 10 mg tablet 10 mg PO QAM (DME) Dexcom G6 Sensor Device See Rx Instructions .Route Rx Instructions: As directed fenofibrate 54 mg tablet 54 mg PO QAM magnesium oxide 400 mg magnesium capsule 400 mg PO BID nitroglycerin 0.4 mg tablet, sublingual 0.4 mg sublingual DIRECTED PRN (Reason: Chest Pain) Rx Instructions: place under tongue 1 tab every 5 minutes as needed for chest pain,up to 3 doses in 15 minutes rosuvastatin 40 mg tablet 40 mg PO QAM clopidogrel 75 mg Tablet 75 mg PO QAM Qty: 30 1RF isosorbide mononitrate 60 mg Tablet Extended Release 24 Hr 60 mg PO QAM 30 Days Qty: 30 2RF ipratropium-albuterol 0.5 mg-3 mg(2.5 mg base)/3 mL solution for nebulization 3 ml INH Q8H PRN (Reason: wheezing) Qty: 90 0RF Rx Instructions: J10.1, R05 cyanocobalamin (vitamin B-12) [Vitamin B-12] 1,000 mcg Tablet 1,000 mcg PO QAM warfarin 5 mg Tablet 2.5 mg PO 3XWK Rx Instructions: MON, WED, & FRI EVENINGS montelukast 10 mg Tablet 10 mg PO QAM sotalol 80 mg tablet 40 mg PO BID lisinopril 20 mg tablet 20 mg PO HS carvedilol 3.125 mg tablet 3.125 mg PO BIDM Rx Instructions: take with morning and evening meals furosemide 20 mg Tablet 20 mg PO QAM betamethasone dipropionate 0.05 % Ointment 1 applic TOPICAL BID Rx Instructions: apply to psoriasis on right wrist and left calf twice daily (or more if itchy instead of scratching) and use plastic wrap on left calf short term to improve faster sodium chloride 3 % Solution For Nebulization 4 ml INHALATION BID amlodipine 2.5 mg tablet 2.5 mg PO HS acetaminophen [Tylenol Extra Strength] 500 mg Tablet 500 - 1,000 mg PO BID PRN (Reason: Pain) warfarin 5 mg Tablet 5 mg PO 4XWK Rx Instructions: SUN, TUES, THURS & SAT EVENINGS aspirin 81 mg Tablet,Chewable 81 mg PO DAILY Saline Nasal 0.65 % Aerosol,[place] 1 spray INTRANASAL .Q1H PRN (Reason: BLOODY/DRY NOSE) Morrill Saline Gel [place],Non-Aerosol 1 spray INTRANASAL .Q1-4HRS PRN (Reason: BLOODY/DRY NOSE) Dulera 100-5 mcg/actuation Hfa Aerosol Inhaler 2 puff INHALATION BID guaifenesin [Mucinex] 600 mg Tablet Extended Release 12hr 600 mg PO Q12H PRN (Reason: Congestion) levothyroxine 125 mcg tablet 125 mcg PO DAILYBB insulin lispro [Humalog KwikPen Insulin] 100 unit/mL insulin pen 30 unit subcut AC MDD 120 units Referrals Referrals: Jessica Pompa MD [Primary Care Provider] -
[2024-11-28 23:00] LABS: Hematocrit (blood only) 38.6 % (37.0-47.0); Hemoglobin 12.7 g/dl (12.0-16.0); Immature Granulocytes # (auto) 0.01 K/uL (0.01-0.20); Immature Granulocytes % (auto) 0.1 %; Mean Corpuscular Hemoglobin 30.4 pg (25.0-34.0); Mean Corpuscular Volume 92.3 fL (80.0-100.0); Platelet Count 181 K/uL (130-400); RDW Standard Deviation 42.7 fL (36.4-46.3); Red Blood Count 4.18 M/uL (4.20-5.40); White Blood Count 6.90 K/ul (4.8-10.8)
[2024-11-28] MEDS: ONDANSETRON INJ 2 MG/ML 2 ML VIAL IV STA (23:14)
[2024-11-28] MEDS: MoRPHine SULFATE 4 MG/ML 1 ML CARP\\VIAL IV STA (23:15)
[2024-11-28 23:21] LABS: Alanine Aminotransferase 12.0 U/L (7-52); Albumin Globulin Ratio 1.2 (0.9-2); Albumin Level 3.6 gm/dl (3.4-5.0); Alkaline Phosphatase 64.0 U/L (34-104); Anion Gap 6.0 (3-11); Bilirubin,Total 0.4 mg/dl (0.2-1.0); Blood Urea Nitrogen 32.0 mg/dl (6-23); Calcium 9.2 mg/dl (8.6-10.3); Carbon Dioxide 30.0 mmol/L (21-32); Chloride 97.0 mmol/L (98-107); Creatinine Clr Calc Pharmacy 45.6 ml/min; Globulin 3.1 gm/dl (2.5-4.0); Glucose 213.0 mg/dl (70-99(Fasting)); Lipase 31.0 U/L (11-82); Potassium 4.6 mmol/L (3.5-5.1); Sodium 133.0 mmol/L (136-145); Total Protein 6.7 gm/dl (6.0-8.3)
--- NOTE | 2024-11-28 23:33 | XRay Report ---
Exam(s): XR CXR 1 VIEW EXAM: XR Chest, 1 View CLINICAL HISTORY: Reason for exam: Chest pain, nonspecific. TECHNIQUE: Frontal view of the chest. COMPARISON: 02/26/2024. FINDINGS: Lungs: No consolidation. Pleural space: No pleural effusion is seen. No pneumothorax. Heart: The patient is status post midline sternotomy. The heart is normal in size.. Mediastinum: There is mild uncoiling of thoracic aorta.. Bones/joints: There are degenerative changes in the shoulders.. IMPRESSION: No acute pulmonary disease.. Electronically signed by: Vlad Garcia MD 11/28/24 23:32 PM
[2024-11-28 23:36] LABS: INR 2.8 (0.9-1.1); Prothrombin Time 27.9 Seconds (9.0-12.0)
[2024-11-29 01:20] VITALS: RESP 18
[2024-11-29] MEDS ORDERED: POLYETHYLENE (MIRALAX) 17 GM PACK PO PRN (03:12)
[2024-11-29] MEDS ORDERED: GLUCAGON FOR INJ 1 MG VIAL SQ PRN (03:12)
[2024-11-29] MEDS ORDERED: NITROGLYCERIN SL 0.4 MG/TAB TAB SL PRN (03:12)
[2024-11-29] MEDS ORDERED: ALBUT/IPRATROP 3MG/0.5MG NEB 3 ML VIAL INH PRN (03:12)
[2024-11-29] MEDS ORDERED: GLUCOSE 10 TAB/TUBE PO PRN (03:12)
[2024-11-29] MEDS ORDERED: DEXTROSE 50% 50 ML SYRINGE IV PRN (03:12)
[2024-11-29] MEDS ORDERED: SODIUM CHLORIDE 0.65% NA SOLN 45 ML (OCEAN) PRN (03:12)
[2024-11-29] MEDS ORDERED: CARBOHYDRATES FOR HYPOGLYCEMIA PO PRN (03:12)
[2024-11-29] MEDS ORDERED: PHARMACY GLYCEMIC MGMT CONSULT PRN (03:12)
[2024-11-29] MEDS ORDERED: ACETAMINOPHEN 325 MG TAB PO PRN (03:12)
[2024-11-29] MEDS ORDERED: GLUCOSE 40% GEL 15 GM TUBE PO PRN (03:12)
[2024-11-29] MEDS ORDERED: guaiFENesin 600 MG TABCR PO PRN (03:12)
--- NOTE | 2024-11-29 04:51 | History & Physical Report ---
Date of Service November 29, 2024 Assessment & Plan (1) Chest pain: Plan: 74-year-old female with past med history significant for diabetes, CKD stage III, hypothyroidism, hyperlipidemia, nocturnal hypoxia, sleep apnea, CAD, paroxysmal atrial fibrillation, chronic diastolic HF, hypertension, mitral stenosis, nonrheumatic aortic valve stenosis, morbid obesity, hepatic steatosis, psoriasis, generalized osteoarthritis, presents with chest pain. Patient states since yesterday morning she is having on and off chest pains in the left side radiating to the back. Pain was 68/10 in severity. No headache. No dizziness. Has chronic cough. Has chronic runny nose from allergies. No fevers. Yesterday appetite was not great. Has some mild shortness of breath on exertion. No fevers. Was having some burping. No abdominal pain. Normal bowel and bladder movements. In the ER after morphine the pain is resolved. Currently resting comfortably and hemodynamically stable. Chest pain History of CAD and CABG and stent placement EKG no acute findings Initial troponin 13.2 and repeat is 15.9 Currently asymptomatic Will follow serial cardiac enzymes and echo N.p.o. Telemetry Cardial consult in a.m. for further recommendations History of CAD Status post CABG in 2004 Status post SHELLEY to LAD in 2020 Status post PCI of ostial LAD in-stent restenosis with stent in 2021 On aspirin, Plavix, Coreg, Zetia, fenofibrate, rosuvastatin and Imdur Chronic diastolic CHF Valvular heart disease Continue home Lasix will follow echo Peripheral artery disease On aspirin and Plavix Paroxysmal atrial fibrillation On sotalol and Coreg and Coumadin INR is 2.8 today Will monitor Obstructive sleep apnea On oxygen nightly Hypertension On Coreg, lisinopril, Lasix, amlodipine and Imdur Will monitor Hyperlipidemia On fenofibrate, rosuvastatin and Zetia Hypothyroidism On Levothyroxine. Diabetes Sliding scale Glycemic pharmacy consult CKD stage III Presented with creatinine 1.1 which is around baseline We will follow labs DVT prophylaxis On Coumadin and INR 2.8 Disposition Telemetry Full code. History of Present Illness Chief Complaint: Chest pain Primary Care Provider: Jessica Pompa MD 74-year-old female with past med history significant for diabetes, CKD stage III, hypothyroidism, hyperlipidemia, nocturnal hypoxia, sleep apnea, CAD, paroxysmal atrial fibrillation, chronic diastolic HF, hypertension, mitral stenosis, nonrheumatic aortic valve stenosis, morbid obesity, hepatic steatosis, psoriasis, generalized osteoarthritis, presents with chest pain. Patient states since yesterday morning she is having on and off chest pains in the left side radiating to the back. Pain was 68/10 in severity. No headache. No dizziness. Has chronic cough. Has chronic runny nose from allergies. No fevers. Yesterday appetite was not great. Has some mild shortness of breath on exertion. No fevers. Was having some burping. No abdominal pain. Normal bowel and bladder movements. In the ER after morphine the pain is resolved. Currently resting comfortably and hemodynamically stable. Past medical history. As mentioned above. Past surgical history. . Colonoscopy at Age. Cardiac cath and stent placement. Gum surgery. Appendectomy. Social history. . No smoking. No alcohol. No drug use. Family history. Father had cancer. Diabetes. Heart disorder. Brother had heart disorder. Mother had lung disorder. Allergies Allergy/AdvReac Type Severity Reaction Status Date / Time Iodinated Contrast Media Allergy Intermediate TEARS AND Verified 11/28/24 22:34 FACE BECAME VERY REDDENED oxycodone Allergy Intermediate ITCHY RASH Verified 11/28/24 22:34 diltiazem AdvReac Intermediate ROBBINS, Verified 11/28/24 22:34 flushing vaccine adjuvant system, AdvReac Intermediate psoarsis Verified 11/28/24 22:34 [id number] liposomal [From Shingrix (PF)] varicella-zoster virus AdvReac Intermediate psoarsis Verified 11/28/24 22:34 glycoprotein E, recombinant [From Shingrix (PF)] Blood-Group Specific Allergy Unknown NO BLOOD Uncoded 11/28/24 22:34 Substance PRODUCTS Home Medications Medication Instructions Recorded Confirmed Type rosuvastatin 40 mg tablet 40 mg PO QAM 08/09/18 11/28/24 History ezetimibe 10 mg tablet 10 mg PO QAM 04/05/19 11/28/24 History fenofibrate 54 mg tablet 54 mg PO QAM 04/24/20 11/28/24 History clopidogrel 75 mg tablet 75 mg PO QAM #30 tabs 11/13/20 11/28/24 Rx isosorbide mononitrate 60 mg 60 mg PO QAM 30 days #30 tabs 01/05/21 11/28/24 Rx tablet,extended release 24 hr magnesium oxide 400 mg PO BID 07/23/21 11/28/24 History ipratropium 0.5 mg-albuterol 3 mg 3 ml inhalation Q8H PRN wheezing 09/06/21 11/28/24 Rx (2.5 mg base)/3 mL nebulization #90 mL soln nitroglycerin 0.4 mg sublingual 0.4 mg sublingual DIRECTED PRN 05/17/22 11/28/24 History tablet Chest Pain blood-glucose sensor (Dexcom G6 11/17/22 09/25/24 History Sensor device) carvedilol 3.125 mg tablet 3.125 mg PO BIDM 04/28/23 11/28/24 History cyanocobalamin (vitamin B-12) 1,000 mcg PO QAM 04/28/23 11/28/24 History 1,000 mcg tablet (Vitamin B-12) lisinopril 20 mg tablet 20 mg PO HS 04/28/23 11/28/24 History montelukast 10 mg tablet 10 mg PO QAM 04/28/23 11/28/24 History sotalol 80 mg tablet 40 mg PO BID 04/28/23 11/28/24 History warfarin 5 mg tablet 2.5 mg PO 3XWK 04/28/23 11/28/24 History betamethasone dipropionate 0.05 % 1 applic topical BID 05/27/23 11/28/24 History topical ointment furosemide 20 mg tablet 20 mg PO QAM 05/27/23 11/28/24 History pen needle, diabetic 31 gauge x #400 ea 11/26/24 Rx 3/16" acetaminophen 500 mg tablet 500 - 1,000 mg PO BID PRN Pain 11/28/24 11/28/24 History (Tylenol Extra Strength) amlodipine 2.5 mg tablet 2.5 mg PO HS 11/28/24 11/28/24 History aspirin 81 mg chewable tablet 81 mg PO DAILY 11/28/24 11/28/24 History guaifenesin 600 mg tablet, 600 mg PO Q12H PRN Congestion 11/28/24 11/28/24 History extended release 12 hr (Mucinex) insulin lispro 100 unit/mL 30 unit subcut AC 11/28/24 11/28/24 History subcutaneous pen (Humalog KwikPen (U-100) Insulin) levothyroxine 125 mcg tablet 125 mcg PO DAILYBB 11/28/24 11/28/24 History mometasone-formoterol HFA 100 2 puff inhalation BID 11/28/24 11/28/24 History mcg-5 mcg/actuation aerosol inhaler (Dulera) sodium chloride 0.65 % nasal spray 1 spray intranasal .Q1H PRN 11/28/24 11/28/24 History aerosol (Saline Nasal) BLOODY/DRY NOSE sodium chloride 3 % for 4 ml inhalation BID 11/28/24 11/28/24 History nebulization sodium chloride-aloe vera nasal 1 spray intranasal .Q1-4HRS PRN 11/28/24 11/28/24 History spray ([place] Saline Gel nasal spray) BLOODY/DRY NOSE warfarin 5 mg tablet 5 mg PO 4XWK 11/28/24 11/28/24 History Past Med/Surg History Problem List (Updated 11/29/24 @ 01:36 by Martha Ruiz MD) Elevated troponin (Acute) Chest pain (Acute) UGIB (upper gastrointestinal bleed) GIB (gastrointestinal bleeding) (Acute) Anemia Atrial fibrillation with rapid ventricular response (Acute) Hypertensive urgency (Acute) Stented coronary artery Elevated troponin CKD (chronic kidney disease) stage 3, GFR 30-59 ml/min Hypertensive crisis DVT prophylaxis Hypertensive urgency Unstable angina Acute diastolic heart failure Morbid obesity Fatty liver Elevated transaminase level Encounter for pre-operative examination Vitamin D deficiency (Chronic) Arteriosclerotic cardiovascular disease (ASCVD) Background diabetic retinopathy associated with type 2 diabetes mellitus Chronic kidney disease, stage 3 (moderate) Diabetes mellitus type 2, uncontrolled Diabetic nephropathy associated with type 2 diabetes mellitus Dyslipidemia Frank's thyroiditis Hypertension (02/14/11) Hypothyroidism Old myocardial infarct (02/14/11) Overweight PAD (peripheral artery disease) Percutaneous transluminal coronary angioplasty status (02/14/11) Proteinuria Pure hypercholesterolemia (02/14/11) Type 2 diabetes mellitus with complications Type 2 diabetes mellitus, with long-term current use of insulin Vitamin D deficiency No pertinent past surgical history Acute hyperglycemia Failure of outpatient treatment COPD exacerbation Diabetes Psoriasis (Chronic) Hypertriglyceridemia Retinopathy Chronic kidney disease, stage III (moderate) (Chronic) Dr Patten Atrial fibrillation controlled with medication CHF (congestive heart failure) (Acute) Pyelonephritis Medical History Status post insertion of drug-eluting stent into left anterior descending (LAD) artery NSTEMI (non-ST elevated myocardial infarction) Osteoarthritis Colon polyp Hypothyroidism Diabetes mellitus, type 2 On anticoagulant therapy Transient ischemic attack (TIA) Hyperlipidemia Myocardial Infarction Sleep apnea On home oxygen therapy Bronchitis Hypertension Surgical History History of appendectomy History of section History of cataract surgery History of heart artery stent History of cardiac cath Hx of CABG H/O colonoscopy Family History Father Diabetes FHx: colon cancer Social History Smoking Status: Never smoker Second Hand Exposure: No; Do You Dip or Chew Tobacco: No; Tobacco Cessation Education Requested by Patient: No Hx Alcohol Use: No Hx Substance Use: No Preferred Language: Danish Communication Ability: Effective Visual Impairment: No Limitations Hearing Ability: Normal Sales Support Representative Required: No Beliefs That Will Affect Care: Spiritual Spiritual Healthcare Practices: cuong witness marital status: Unknown Current Living Situation: Alone current occupational status: retired How many Children do You have: 3 Other Information That Helps Us Care for You: No Feels Safe at Home: Yes Safety Concerns: Feels Safe At This Time Diet: regular caffeine: Yes (2-3 cups of tea daily, occasional diet pepsi) Physical Activity Frequency: Does not Exercise Seatbelt Use: always Gender Identity: Female Assistive Devices: Oxygen - at Night Review of Systems Review of Systems: All systems reviewed & are unremarkable except as noted in HPI & below Physical Exam Physical Exam: General- Not in distress Head- atraumatic Eyes- PERRL. ENT- oropharynx clear Neck- supple, no JVD. Lungs- clear to auscultation no wheezing or crackles Heart- regular rhythm; no murmur, no gallop. Abdomen- normal bowel sounds, soft, nontender, no distension Extremities-trace pretibial edema, no erythema seen Neuro- alert, oriented PERRL, no facial palsy; no dysarthria; moves extremities Results & Data Results & Data Vital Signs (Past 12 Hours) Vital Signs Temp Pulse Pulse Resp BP BP Pulse Ox 11/29/24 01:06 62 18 99 11/29/24 01:00 158/64 H 11/29/24 00:30 62 19 100 11/29/24 00:30 163/66 H 11/28/24 23:42 67 16 152/72 H 100 11/28/24 23:39 87 L 11/28/24 23:02 68 11/28/24 22:25 36.9 C 70 20 172/80 H 97 O2 Del Method O2 Flow Rate 11/29/24 01:06 Nasal Cannula 2 11/29/24 01:00 11/29/24 00:30 Nasal Cannula 2 11/29/24 00:30 11/28/24 23:42 Nasal Cannula 2 11/28/24 23:39 Nasal Cannula 11/28/24 23:02 11/28/24 22:25 Room Air Diagnostic Findings Laboratory Results WBC 6.90 K/ul (4.8-10.8) 11/28/24 22:30 RBC 4.18 M/uL (4.20-5.40) L 11/28/24 22:30 Hgb 12.7 g/dl (12.0-16.0) 11/28/24 22:30 Hct 38.6 % (37.0-47.0) 11/28/24 22:30 MCV 92.3 fL (80.0-100.0) 11/28/24 22:30 MCH 30.4 pg (25.0-34.0) 11/28/24 22:30 MCHC 32.9 g/dL (32.0-36.0) 11/28/24 22:30 RDW Std Deviation 42.7 fL (36.4-46.3) 11/28/24 22:30 RDW Coeff of Ree 12.6 % (11.5-14.5) 11/28/24 22:30 Plt Count 181 K/uL (130-400) 11/28/24 22:30 MPV 11.4 fL (9.4-12.4) 11/28/24 22:30 Immature Gran % (Auto) 0.1 % 11/28/24 22:30 Neut % (Auto) 57.7 % 11/28/24 22:30 Lymph % (Auto) 26.2 % 11/28/24 22:30 Bibb % (Auto) 12.3 % 11/28/24 22:30 Eos % (Auto) 3.3 % 11/28/24 22:30 Baso % (Auto) 0.4 % 11/28/24 22:30 Neut # (Auto) 3.97 K/uL (1.40-6.50) 11/28/24 22:30 Lymph # (Auto) 1.81 K/uL (1.20-3.40) 11/28/24 22:30 Bibb # (Auto) 0.85 K/uL (0.11-0.59) H 11/28/24 22:30 Eos # (Auto) 0.23 K/uL (0.00-0.50) 11/28/24 22: Baso # (Auto) 0.03 K/uL (0.00-0.20) 11/28/24: Immature Gran # (Auto) 0.01 K/uL (0.01-0.20) 11/28/24 22:30 PT 27.9 Seconds (9.0-12.0) H 11/28/24 22:30 INR 2.8 (0.9-1.1) H 11/28/24 22:30 Sodium 133 mmol/L (136-145) L 11/28/24 22:30 Potassium 4.6 mmol/L (3.5-5.1) 11/28/24 22: Chloride 97 mmol/L (98-107) L 11/28/24 22:30 Carbon Dioxide 30 mmol/L (21-32) 11/28/24 22:30 Anion Gap 6 (3-11) 11/28/24 22: BUN 32 mg/dl (6-23) H 11/28/24 22:30 Creatinine 1.12 mg/dl (0.6-1.2) 11/28/24 22:30 Est Cr Clr Drug Dosing 45.6 ml/min 11/28/24 22: eGFR 50.96 11/28/24 22: BUN/Creatinine Ratio 28.6 (10-20) H 11/28/24 22:30 Glucose 213 mg/dl (70-99(Fasting)) H 11/28/24 22:30 POC Glucose 195 mg/dl (70-99) H 11/29/24 03:34 Calcium 9.2 mg/dl (8.6-10.3) 11/28/24 22:30 Total Bilirubin 0.4 mg/dl (0.2-1.0) 11/28/24 22:30 AST 24 U/L (13-39) 11/28/24 22:30 ALT 12 U/L (7-52) 11/28/24 22:30 Alkaline Phosphatase 64 U/L (34-104) 11/28/24 22:30 Troponin I High Sens 15.9 pg/ml (0-14) H 11/29/24 00:43 Total Protein 6.7 gm/dl (6.0-8.3) 11/28/24 22:30 Albumin 3.6 gm/dl (3.4-5.0) 11/28/24 22:30 Globulin 3.1 gm/dl (2.5-4.0) 11/28/24 22:30 Albumin/Globulin Ratio 1.2 (0.9-2) 11/28/24 22:30 Lipase 31 U/L (11-82) 11/28/24 22:30 Impressions Chest X-Ray 11/28/24 22:20 Exam(s): XR CXR 1 VIEW EXAM: XR Chest, 1 View CLINICAL HISTORY: Reason for exam: Chest pain, nonspecific. TECHNIQUE: Frontal view of the chest. COMPARISON: 02/26/2024. FINDINGS: Lungs: No consolidation. Pleural space: No pleural effusion is seen. No pneumothorax. Heart: The patient is status post midline sternotomy. The heart is normal in size.. Mediastinum: There is mild uncoiling of thoracic aorta.. Bones/joints: There are degenerative changes in the shoulders.. IMPRESSION: No acute pulmonary disease.. Electronically signed by: Vlad Garcia MD 11/28/24 23:32 PM ECG Additional Comments: ECG. Normal sinus rhythm at rate of 75. Left anterior fascicular block. No significant changes found. QTc 493 Code Status & VTE Plan VTE Prophylaxis Plan VTE Prophylaxis will be ordered: Yes
[2024-11-29] MEDS: LEVOTHYROXINE SODIUM 125 MCG TABLET PO SCH (05:55)
[2024-11-29] MEDS: INSULIN ASPART PER UNIT CHARGE SC SCH ×2 (05:55→12:29)
[2024-11-29 08:45] LABS: Hematocrit (blood only) 35.8 % (37.0-47.0); Hemoglobin 11.8 g/dl (12.0-16.0); Immature Granulocytes # (auto) 0.02 K/uL (0.01-0.20); Immature Granulocytes % (auto) 0.3 %; Mean Corpuscular Hemoglobin 30.5 pg (25.0-34.0); Mean Corpuscular Volume 92.5 fL (80.0-100.0); Platelet Count 154 K/uL (130-400); RDW Standard Deviation 42.6 fL (36.4-46.3); Red Blood Count 3.87 M/uL (4.20-5.40); White Blood Count 6.58 K/ul (4.8-10.8)
[2024-11-29] MEDS: FUROSEMIDE 20 MG TAB PO SCH (08:54)
[2024-11-29] MEDS: ASPIRIN 81 MG ECTAB PO SCH (08:54)
[2024-11-29] MEDS: CYANOCOBALAMIN (B-12) 500 MCG TABLET PO SCH (08:55)
[2024-11-29] MEDS: ROSUVASTATIN CALCIUM 20 MG TAB PO SCH (08:55)
[2024-11-29] MEDS: MAGNESIUM OXIDE 400 MG TAB PO SCH (08:55)
[2024-11-29] MEDS: CLOPIDOGREL BISULFATE 75 MG TAB PO SCH (08:56)
[2024-11-29] MEDS: MONTELUKAST SODIUM 10 MG TABLET PO SCH (08:56)
[2024-11-29] MEDS: EZETIMIBE 10 MG TAB PO SCH (08:57)
[2024-11-29] MEDS: ISOSORBIDE MONO EXTENDED REL 60 MG TABCR PO SCH (08:57)
[2024-11-29] MEDS: SOTALOL HCL 80 MG TAB PO SCH (08:58)
[2024-11-29] MEDS: FLUOCINONIDE 0.05% OINT 15 GM TUBE EXT SCH (08:58)
[2024-11-29] MEDS: FLUTICASONE/VILANTEROL 100/25MCG 14 PUFFS/INHALER INH SCH (08:58)
[2024-11-29 09:00] LABS: Hemoglobin A1C 7.4 % (4.5-5.6)
[2024-11-29 09:02] LABS: Anion Gap 4.0 (3-11); Blood Urea Nitrogen 30.0 mg/dl (6-23); Calcium 8.9 mg/dl (8.6-10.3); Carbon Dioxide 33.0 mmol/L (21-32); Chloride 100.0 mmol/L (98-107); Creatinine Clr Calc Pharmacy 48.2 ml/min; Glucose 195.0 mg/dl (70-99(Fasting)); Magnesium 2.0 mg/dl (1.7-2.4); Potassium 4.3 mmol/L (3.5-5.1); Sodium 137.0 mmol/L (136-145)
--- NOTE | 2024-11-29 09:05 | Electrocardiogram Report ---
Test Reason : Blood Pressure : */* mmHG Vent. Rate : 75 BPM Atrial Rate : 75 BPM P-R Int : 148 ms QRS Dur : 120 ms QT Int : 442 ms P-R-T Axes : 87 -52 46 degrees QTcB Int : 493 ms Normal sinus rhythm Incomplete right bundle branch block Left anterior fascicular block Abnormal ECG When compared with ECG of 26-May-2023 20:32, No significant change was found Confirmed by Boom Smith ([id number]) on 11/29/2024 9:05:17 AM Referred By: REFERRED SELF Confirmed By: Boom Smith
--- NOTE | 2024-11-29 09:08 | Electrocardiogram Report ---
Test Reason : Blood Pressure : */* mmHG Vent. Rate : 61 BPM Atrial Rate : 61 BPM P-R Int : 164 ms QRS Dur : 124 ms QT Int : 482 ms P-R-T Axes : 106 224 136 degrees QTcB Int : 485 ms Normal sinus rhythm Right superior axis deviation RSR' or QR pattern in V1 suggests right ventricular conduction delay Abnormal ECG When compared with ECG of 28-Nov-2024 22:22, (unconfirmed) Left anterior fascicular block is no longer Present Confirmed by Boom Smith ([id number]) on 11/29/2024 9:07:49 AM Referred By: REFERRED SELF Confirmed By: Boom Smith
--- NOTE | 2024-11-29 09:14 | Cardiology Consultation ---
Date of Consultation November 29, 2024 Assessment & Plan (1) Chest pain: (2) Hypertension: (3) Dyslipidemia: (4) Paroxysmal atrial fibrillation: (5) Chronic kidney disease, stage III (moderate): Plan Assessment: 74 year old medically complex female presented with 1 day of inte rmittent chest discomfort. EKG with no acute ST-T wave changes. initial troponin with minimal elevation, repeat normal. Given patient's history, Cardiology consulted for assessment and recommendations. Plan: 1. chest pain -in the setting of severely elevated blood pressures. -BP now controlled and patient is chest pain free -Minimal elevation in troponin repeat normal. No acute EKG changes. -Continue coreg, ASA 81mg, Plavix, Zetia, fenofibrate, Furosemide, imdur, lisinopril and crestor. -Start Amlodipine 2.5mg PO QD -Echocardiogram pending. Assess LVEF and for any all motion abnormalities. 2. HTN -Elevated on arrival and had remained above target. -Continue Coreg, Furosemide, Imdur and will add Amlodipine 3. Dyslipidemia -Continue Zetia, Fenofibrate and Crestor -discussed the importance of good cholesterol control in the setting of extensive coronary disease and diabetes. 4. P. A-fib -Sinus rhythm on telemetry -Continue Coreg and Sotolol as per current regimen. -Continue warfarin as per [facility] coag managment 5. CKD stage II -Renal function at baseline. Case has been discussed with Dr. Funez. Further recommendations regarding plan of care as per his assessment. I spent a total of 50 minutes on the date of service in preparation, delivery, documentation of the care provided to the patient excluding any time spent in the performance of separately billed services. CORINNA Durant [facility] [address] Cardiology [facility] Supervising Physician Co-Signing Physician Notes Patient seen and examined. Past medical history, surgical history, social history and family history have been reviewed. The medical record and all the above studies have been reviewed. Case DW NAWAF including management. HTN - uncontrolled -> better Chest pain HLD PAF CKD CAD S/P CABG S/P SHELLEY Continue Coreg, Lisinopril, Furosemide, Imdur, Amlodipine in AM, Crestor, fenofibrate correct and f/u electrolytes f/u renal function continue DAPT continue anticoagulation adjust anti-HTN meds keeping systolic BP between 100-140 mmHg salt restriction dietary counseling Stable from cardiac standpoint for discharge f/u in cardiology clinic post discharge DW hospitalist will sign off History of Present Illness Reason for Consultation: Chest pain Requesting Physician: Alena hospitalist Attending Physician: Ruben Plummer MD History of Present Illness HPI: Patient is a 74 year old female with PMHx as noted below that presented to the ER with acute complaints of chest pain. Patient reported that the pain started one day prior to admission, intermittent in nature described as left sided with radiation to the back. No other associated symptoms. did endorses a poor appetite yesterday with "burping". Upon seeing patient today she is out of bed in a ifeanyi resting comfortably without complaints. BP elevated. Problem List: 1. Coronary artery disease, with history of NSTEMI in 2004 for which she underwent CABG x 1 in 2004 with SVG to the LAD along with PCI to the left circumflex. a. Repeat cardiac catheterization with Dr. Hunt, s/p successful PCI of ostial LAD with a single SHELLEY, 2.5 x 12mm darian, post dilated with a 3.0 NC ( PCI by Dr Rivas), 11/12/2020 b. NSTEMI- Repeat cardiac cath with Dr. Rivas at [facility]: Multivessel coronary artery disease, 90% proximal LAD in-stent restenosis, 30 to 40% ostial/proximal circumflex, Patent distal circumflex, OM 2 stents. Patent vein graft to distal LAD with competitive flow i. S/p Successful PCI of ostial LAD in-stent restenosis with single drug- eluting stent (2.75 x 8 mm Xience) 2. Angioplasty of proximal jailed first diagonal with 2.5 balloon. Residual moderate, heavily calcified distal left main, ostial circumflex disease, 06/24/2021 2. Incomplete right bundle-branch block 3. Mitral annular calcification with stenosis 4. Type 2 Diabetes 5. Hypertension 6. Dyslipidemia, LDL goal below 70 7. CKD stage III, baseline creatinine 1.3--Follows with Dr. Patten at [facility] 8. Peripheral arterial disease, on Plavix and Coumadin 9. Chronic venous insufficiency 10. Paroxysmal atrial fibrillation, [id number] score of 5 (age, female, hypertension, CAD, diabetes), on Coumadin therapy a. Started on sotalol 12/2020 (dose 40 mg twice daily as larger doses prolonged QTC) 11. Obstructive sleep apnea, on a supplemental oxygen at night EKG NSR Rate 61bpm. No acute St-T wave changes. Chest xray: No acute abnormalities Troponin 15.9/14.0 Allergies Allergy/AdvReac Type Severity Reaction Status Date / Time Iodinated Contrast Media Allergy Intermediate TEARS AND Verified 11/28/24 22:34 FACE BECAME VERY REDDENED oxycodone Allergy Intermediate ITCHY RASH Verified 11/28/24 22:34 diltiazem AdvReac Intermediate ROBBINS, Verified 11/28/24 22:34 flushing vaccine adjuvant system, AdvReac Intermediate psoarsis Verified 11/28/24 22:34 AS01B liposomal [From Shingrix (PF)] varicella-zoster virus AdvReac Intermediate psoarsis Verified 11/28/24 22:34 glycoprotein E, recombinant [From Shingrix (PF)] Blood-Group Specific Allergy Unknown NO BLOOD Uncoded 11/28/24 22:34 Substance PRODUCTS Home Medications Medication Instructions Recorded Confirmed Type rosuvastatin 40 mg tablet 40 mg PO QAM 08/09/18 11/28/24 History ezetimibe 10 mg tablet 10 mg PO QAM 04/05/19 11/28/24 History fenofibrate 54 mg tablet 54 mg PO QAM 04/24/20 11/28/24 History clopidogrel 75 mg tablet 75 mg PO QAM #30 tabs 11/13/20 11/28/24 Rx isosorbide mononitrate 60 mg 60 mg PO QAM 30 days #30 tabs 01/05/21 11/28/24 Rx tablet,extended release 24 hr magnesium oxide 400 mg PO BID 07/23/21 11/28/24 History ipratropium 0.5 mg-albuterol 3 mg 3 ml inhalation Q8H PRN wheezing 09/06/21 11/28/24 Rx (2.5 mg base)/3 mL nebulization #90 mL soln nitroglycerin 0.4 mg sublingual 0.4 mg sublingual DIRECTED PRN 05/17/22 11/28/24 History tablet Chest Pain blood-glucose sensor (Dexcom G6 11/17/22 09/25/24 History Sensor device) carvedilol 3.125 mg tablet 3.125 mg PO BIDM 04/28/23 11/28/24 History cyanocobalamin (vitamin B-12) 1,000 mcg PO QAM 04/28/23 11/28/24 History 1,000 mcg tablet (Vitamin B-12) lisinopril 20 mg tablet 20 mg PO HS 04/28/23 11/28/24 History montelukast 10 mg tablet 10 mg PO QAM 04/28/23 11/28/24 History sotalol 80 mg tablet 40 mg PO BID 04/28/23 11/28/24 History warfarin 5 mg tablet 2.5 mg PO 3XWK 04/28/23 11/28/24 History betamethasone dipropionate 0.05 % 1 applic topical BID 05/27/23 11/28/24 History topical ointment furosemide 20 mg tablet 20 mg PO QAM 05/27/23 11/28/24 History pen needle, diabetic 31 gauge x #400 ea 11/26/24 Rx 3/16" acetaminophen 500 mg tablet 500 - 1,000 mg PO BID PRN Pain 11/28/24 11/29/24 History (Tylenol Extra Strength) amlodipine 2.5 mg tablet 2.5 mg PO HS 11/28/24 11/28/24 History aspirin 81 mg chewable tablet 81 mg PO DAILY 11/28/24 11/28/24 History guaifenesin 600 mg tablet, 600 mg PO Q12H PRN Congestion 11/28/24 11/28/24 History extended release 12 hr (Mucinex) insulin lispro 100 unit/mL 30 unit subcut AC 11/28/24 11/28/24 History subcutaneous pen (Humalog KwikPen (U-100) Insulin) levothyroxine 125 mcg tablet 125 mcg PO DAILYBB 11/28/24 11/28/24 History mometasone-formoterol HFA 100 2 puff inhalation BID 11/28/24 11/28/24 History mcg-5 mcg/actuation aerosol inhaler (Dulera) sodium chloride 0.65 % nasal spray 1 spray intranasal .Q1H PRN 11/28/24 11/28/24 History aerosol (Saline Nasal) BLOODY/DRY NOSE sodium chloride 3 % for 4 ml inhalation BID 11/28/24 11/28/24 History nebulization sodium chloride-aloe vera nasal 1 spray intranasal .Q1-4HRS PRN 11/28/24 11/28/24 History spray ([place] Saline Gel nasal spray) BLOODY/DRY NOSE warfarin 5 mg tablet 5 mg PO 4XWK 11/28/24 11/28/24 History insulin glargine 100 unit/mL (3 30 unit subcut PM 11/29/24 11/29/24 History mL) subcutaneous pen (Lantus Solostar U-100 Insulin) Patient History Medical History Status post insertion of drug-eluting stent into left anterior descending (LAD) artery NSTEMI (non-ST elevated myocardial infarction) Osteoarthritis Colon polyp Hypothyroidism Diabetes mellitus, type 2 On anticoagulant therapy Transient ischemic attack (TIA) Hyperlipidemia Myocardial Infarction Sleep apnea On home oxygen therapy Bronchitis Hypertension Surgical History History of appendectomy History of section History of cataract surgery History of heart artery stent History of cardiac cath Hx of CABG H/O colonoscopy Family History Father Diabetes FHx: colon cancer Social History Smoking Status: Never smoker Second Hand Exposure: No; Do You Dip or Chew Tobacco: No; Tobacco Cessation Education Requested by Patient: No Hx Alcohol Use: No Hx Substance Use: No Preferred Language: Mongolian Communication Ability: Effective Visual Impairment: No Limitations Hearing Ability: Normal Employee Relation Manager Required: No Beliefs That Will Affect Care: Spiritual Spiritual Healthcare Practices: jehovah witness marital status: Unknown Current Living Situation: Alone current occupational status: retired How many Children do You have: 3 Other Information That Helps Us Care for You: No Feels Safe at Home: Yes Safety Concerns: Feels Safe At This Time Diet: regular caffeine: Yes (2-3 cups of tea daily, occasional diet pepsi) Physical Activity Frequency: Does not Exercise Seatbelt Use: always Gender Identity: Female Assistive Devices: Oxygen - at Night Review of Systems Review of Systems: All systems reviewed & are unremarkable except as noted in HPI & below Physical Exam Constitutional: well developed, well nourished and + obese Neck: normal visual inspection and trachea midline Respiratory: normal respiratory effort, lungs clear to auscultation Cardiovascular: Rate/Rhythm: regular rhythm and + bradycardic Heart Sounds: normal S1, normal S2 and + murmur (+2/6 systolic) Vessels: dorsalis pedis pulses present; no JVD Extremities: no edema Skin: no rashes, warm and dry Psychiatric: A+Ox3, euthymic affect Results & Data Vital Signs (Past 12 Hours) Vital Signs Temp Pulse Pulse Resp BP BP Pulse Ox 11/29/24 07:58 61 11/29/24 07:28 36.5 C 63 18 173/83 H 96 11/29/24 05:58 64 157/72 H 11/29/24 04:08 11/29/24 03:29 36.5 C 66 18 180/70 H 99 11/29/24 03:01 11/29/24 02:49 63 18 134/55 L 100 11/29/24 01:06 62 18 99 11/29/24 01:00 158/64 H 11/29/24 00:30 62 19 100 11/29/24 00:30 163/66 H 11/28/24 23:42 67 16 152/72 H 100 11/28/24 23:39 87 L 11/28/24 23:02 68 11/28/24 22:25 36.9 C 70 20 172/80 H 97 O2 Del Method O2 Flow Rate 11/29/24 07:58 11/29/24 07:28 Nasal Cannula 2 11/29/24 05:58 11/29/24 04:08 Nasal Cannula 2 11/29/24 03:29 Nasal Cannula 2 11/29/24 03:01 Nasal Cannula 11/29/24 02:49 Nasal Cannula 2 11/29/24 01:06 Nasal Cannula 2 11/29/24 01:00 11/29/24 00:30 Nasal Cannula 2 11/29/24 00:30 11/28/24 23:42 Nasal Cannula 2 11/28/24 23:39 Nasal Cannula 11/28/24 23:02 11/28/24 22:25 Room Air PG Care Time/CCT Total # of Minutes Spent Total Time Spent with Patient: Total time spent is greater than 50% in coordination of care (as documented) at patient's floor/unit and/or counseling patient: Coding Level of Care Code 49682 IN/OBS CONSULT LVL 5,80M Diagnoses Chest pain R07.9 Primary hypertension I10 Hypertension type: primary hypertension Dyslipidemia E78.5 Paroxysmal atrial fibrillation I48.0 Chronic kidney disease, stage III (moderate) N18.3 Time Spent (min) 50 (2) Hypertension Hypertension type: primary hypertension Qualified Code(s): I10 - Essential (primary) hypertension
[2024-11-29 09:29] LABS: INR 2.9 (0.9-1.1); Prothrombin Time 28.9 Seconds (9.0-12.0)
[2024-11-29] MEDS ORDERED: Nursing to Pharmacy Communication SCH (10:00)
[2024-11-29] MEDS: SODIUM CHLOR 7% 4 ML NEB INH SCH (10:46)
[2024-11-29 11:14] VITALS: TEMP 97.3
--- NOTE | 2024-11-29 11:41 | XCELERA ---
[id number] \\[id number]
[2024-11-29] MEDS: LANTUS PER UNIT CHARGE SC ONE (12:29)
[2024-11-29] MEDS ORDERED: LANTUS PER UNIT CHARGE SC SCH (12:30)
--- NOTE | 2024-11-29 13:41 | Pharmacy Report ---
Pharmacy Glycemic Short Note 2 - Date of Service November 29, 2024 - Glycemic Short BSG Results (Last 24 hours): 11/28/24 11/29/24 11/29/24 22:30 03:34 08:23 Glucose 213 H 195 H POC Glucose 195 H 11/29/24 11:18 Glucose POC Glucose 236 H OUTPATIENT ANTIDIABETIC REGIMEN: * Lantus 30 units hs, humalog TIDM ASSESSMENT: * 74 year old admitted with chest pain. Pharmacy consulted for glycemic ma richard. Resumed home basal insulin dose with lunch as diet now started. Will start novolog weight based stress 2/3 dosing for now. PLAN FOR INPATIENT GLYCEMIC CONTROL: * Hold outpatient oral diabetes medications * Basal insulin * Lantus 30 units SQ x 1 * Bolus insulin * NovoLog per scale ACHS or Q6hrs while NPO * Goal Range: Low 110 mg/dL - High 140 mg/dL * Correction Factor: 20 mg/dL/unit * Nutritional / Prandial insulin per carb ratio of 1 unit per 6 grams CHO consumed
[2024-11-29 14:52] VITALS: BP 133/69; PULSE 51; O2SAT 98
--- NOTE | 2024-11-29 16:20 | Discharge Summary ---
Date of Service November 29, 2024 Admission HPI Per Admitting Provider 74-year-old female with past med history significant for diabetes, CKD stage III, hypothyroidism, hyperlipidemia, nocturnal hypoxia, sleep apnea, CAD, paroxysmal atrial fibrillation, chronic diastolic HF, hypertension, mitral stenosis, nonrheumatic aortic valve stenosis, morbid obesity, hepatic steatosis, psoriasis, generalized osteoarthritis, presents with chest pain. Patient states since yesterday morning she is having on and off chest pains in the left side radiating to the back. Pain was 68/10 in severity. No headache. No dizziness. Has chronic cough. Has chronic runny nose from allergies. No fev ers. Yesterday appetite was not great. Has some mild shortness of breath on exertion. No fevers. Was having some burping. No abdominal pain. Normal bowel and bladder movements. In the ER after morphine the pain is resolved. Currently resting comfortably and hemodynamically stable. Past medical history. As mentioned above. Past surgical history. . Colonoscopy at Age. Cardiac cath and stent placement. Gum surgery. Appendectomy. Social history. . No smoking. No alcohol. No drug use. Family history. Father had cancer. Diabetes. Heart disorder. Brother had heart disorder. Mother had lung disorder. Admission Exam Per Admitting Provider General- Not in distress Head- atraumatic Eyes- PERRL. ENT- oropharynx clear Neck- supple, no JVD. Lungs- clear to auscultation no wheezing or crackles Heart- regular rhythm; no murmur, no gallop. Abdomen- normal bowel sounds, soft, nontender, no distension Extremities-trace pretibial edema, no erythema seen Neuro- alert, oriented PERRL, no facial palsy; no dysarthria; moves extremities Principal Diagnosis Chest pain, uncontrolled hypertension Discharge Exam General- obese elderly F , Not in distress Head- atraumatic Eyes- PERRL. Neck- supple Lungs- clear to auscultation no wheezing or crackles Heart- regular rhythm; no murmur Abdomen- normal bowel sounds, soft, nontender, no distension Extremities-trace pretibial edema, no erythema seen Neuro- alert, oriented PERRL, no facial palsy; no dysarthria; moves extremities Discharge Data Allergies Allergy/AdvReac Type Severity Reaction Status Date / Time Iodinated Contrast Media Allergy Intermediate TEARS AND Verified 11/28/24 22:34 FACE BECAME VERY REDDENED oxycodone Allergy Intermediate ITCHY RASH Verified 11/28/24 22:34 diltiazem AdvReac Intermediate ROBBINS, Verified 11/28/24 22:34 flushing vaccine adjuvant system, AdvReac Intermediate psoarsis Verified 11/28/24 22:34 AS01B liposomal [From Shingrix (PF)] varicella-zoster virus AdvReac Intermediate psoarsis Verified 11/28/24 22:34 glycoprotein E, recombinant [From Shingrix (PF)] Blood-Group Specific Allergy Unknown NO BLOOD Uncoded 11/28/24 22:34 Substance PRODUCTS Consultations 11/29/24 01:36 ED Decision to Admit Stat 11/29/24 08:00 Consult Cardiology Routine Hospital Course (1) Chest pain: 74-year-old female with past med history significant for diabetes, CKD stage III, hypothyroidism, hyperlipidemia, nocturnal hypoxia, sleep apnea, CAD, paroxysmal atrial fibrillation, chronic diastolic HF, hypertension, mitral stenosis, nonrheumatic aortic valve stenosis, morbid obesity, hepatic steatosis, psoriasis, generalized osteoarthritis, presents with chest pain. Patient states since yesterday morning she is having on and off chest pains in the left side radiating to the back. Pain was 68/10 in severity. No headache. No dizziness. Has chronic cough. Has chronic runny nose from allergies. No fevers. Yesterday appetite was not great. Has some mild shortness of breath on exertion. No fevers. Was having some burping. No abdominal pain. Normal bowel and bladder movements. In the ER after morphine the pain is resolved. Currently resting comfortably and hemodynamically stable. Chest pain History of CAD and CABG and stent placement EKG no acute findings Initial troponin 13.2 and repeat is 15.9 Currently asymptomatic serial cardiac enzymes and echo obtained Telemetry Cardiology consulted and discussed with - chest pain likely secondary to uncontrolled hypertension. Currently BP well controlled. Recommend pt takes amlodipine in the morning instead of at night. Close follow up w/ pcp and cardiology as outpt. History of CAD Status post CABG in 2004 Status post SHELLEY to LAD in 2020 Status post PCI of ostial LAD in-stent restenosis with stent in 2021 On aspirin, Plavix, Coreg, Zetia, fenofibrate, rosuvastatin and Imdur Chronic diastolic CHF Valvular heart disease Continue home Lasix will follow echo Peripheral artery disease On aspirin and Plavix Paroxysmal atrial fibrillation On sotalol and Coreg and Coumadin INR is 2.8 on admission Will monitor Obstructive sleep apnea On oxygen nightly Hypertension On Coreg, lisinopril, Lasix, amlodipine and Imdur Will monitor - as above BP now improved Hyperlipidemia On fenofibrate, rosuvastatin and Zetia Hypothyroidism On Levothyroxine. Diabetes Sliding scale Glycemic pharmacy consult CKD stage III Presented with creatinine 1.1 which is around baseline We will follow labs Total Time Total Time Spent Total Time Spent (In Minutes): 40 Discharge Plan Discharge Items Patient Disposition: Home - Self-Care Reason For Visit: CHEST PAIN Discharge Diagnosis: Chest pain, uncontrolled hypertension Condition on Discharge: Fair Activity: Per Instructions section Non-emergency contact: Primary Care Provider and Lamp Replacer Call non-emergency contact if: you have any medication questions and your symptoms worsen Follow-up/Referrals: Jessica Pompa MD [Primary Care Provider] - (Date & Time 12/07/2024 2:20 PM Provider: Jessica Pompa MD General Internal Medicine [facility] ) Diet: Carb Consistent or DM2, Heart Healthy and Low Sodium (2gm) Addtl Attending Provider Instructions: Follow up with primary care physician within 1 week. Monitor your blood pressure , and record your numbers. Discuss your numbers with your physicians so that your medication can be further adjusted as needed. Per cardiology, recommend you take your amlodipine in the morning instead of night. Pending Studies at Discharge: No Stand-Alone Forms: My [facility] [employer], Smoking Cessation Medications and DC Order Prescriptions: Continued (DME) pen needle, diabetic 31 gauge x 3/16" needle See Rx Instructions .ROUTE .MEDSUPPLY Qty: 400 3RF Rx Instructions: use 4 needles daily ezetimibe 10 mg tablet 10 mg PO QAM (DME) Dexcom G6 Sensor Device See Rx Instructions .Route Rx Instructions: As directed fenofibrate 54 mg tablet 54 mg PO QAM magnesium oxide 400 mg magnesium capsule 400 mg PO BID nitroglycerin 0.4 mg tablet, sublingual 0.4 mg sublingual DIRECTED PRN (Reason: Chest Pain) Rx Instructions: place under tongue 1 tab every 5 minutes as needed for chest pain,up to 3 doses in 15 minutes rosuvastatin 40 mg tablet 40 mg PO QAM clopidogrel 75 mg Tablet 75 mg PO QAM Qty: 30 1RF isosorbide mononitrate 60 mg Tablet Extended Release 24 Hr 60 mg PO QAM 30 Days Qty: 30 2RF ipratropium-albuterol 0.5 mg-3 mg(2.5 mg base)/3 mL solution for nebulization 3 ml INH Q8H PRN (Reason: wheezing) Qty: 90 0RF Rx Instructions: J10.1, R05 cyanocobalamin (vitamin B-12) [Vitamin B-12] 1,000 mcg Tablet 1,000 mcg PO QAM warfarin 5 mg Tablet 2.5 mg PO 3XWK Rx Instructions: MON, WED, & FRI EVENINGS montelukast 10 mg Tablet 10 mg PO QAM sotalol 80 mg tablet 40 mg PO BID lisinopril 20 mg tablet 20 mg PO HS carvedilol 3.125 mg tablet 3.125 mg PO BIDM Rx Instructions: take with morning and evening meals furosemide 20 mg Tablet 20 mg PO QAM betamethasone dipropionate 0.05 % Ointment 1 applic TOPICAL BID Rx Instructions: apply to psoriasis on right wrist and left calf twice daily (or more if itchy instead of scratching) and use plastic wrap on left calf short term to improve faster sodium chloride 3 % Solution For Nebulization 4 ml INHALATION BID amlodipine 2.5 mg tablet 2.5 mg PO HS acetaminophen [Tylenol Extra Strength] 500 mg Tablet 500 - 1,000 mg PO BID PRN (Reason: Pain) warfarin 5 mg Tablet 5 mg PO 4XWK Rx Instructions: SUN, TUES, THURS & SAT EVENINGS aspirin 81 mg Tablet,Chewable 81 mg PO DAILY Saline Nasal 0.65 % Aerosol,[place] 1 spray INTRANASAL .Q1H PRN (Reason: BLOODY/DRY NOSE) [place] Saline Gel [place],Non-Aerosol 1 spray INTRANASAL .Q1-4HRS PRN (Reason: BLOODY/DRY NOSE) Dulera 100-5 mcg/actuation Hfa Aerosol Inhaler 2 puff INHALATION BID guaifenesin [Mucinex] 600 mg Tablet Extended Release 12hr 600 mg PO Q12H PRN (Reason: Congestion) levothyroxine 125 mcg tablet 125 mcg PO DAILYBB insulin lispro [Humalog KwikPen Insulin] 100 unit/mL insulin pen 30 unit subcut AC MDD 120 units insulin glargine [Lantus Solostar U-100 Insulin] 100 unit/mL (3 mL) Insulin Pen 30 unit SUBCUT PM Discharge Orders: Discharge Order (Routine); Ordered 11/29/24 Ordered By: Ruben Will/Other Patient Handouts: Managing Type 2 Diabetes Admission Data Admit Date/Time: 11/29/24 02:41 Attending Provider: Ruben Plummer Admit Provider: Jhonny Caballero Primary Care Provider: Jessica Pompa Other Providers: Jhonny Caballero; Angelita Chamorro; Mike King; Eduardo De La Garza; Phil Pathak; Gabriel Hunt; Joe Green; Ynes Burns; Stephani Denis; Nelda Moreau; Belkis Diaz; Angelita Gerardo; Fred Maldonado; Oz Flowers; Siri Puente; Priscilla Connolly; Tessy Cano; Robson Teixeira; Malachi Jeffries; Fadumo Rangel; Sherine Whitley; Juan Suazo; Armin,Ruben N
[2024-11-29] MEDS: WARFARIN SOD 5 MG TAB PO SCH (17:04)
[2024-11-30] MEDS ORDERED: WARFARIN SOD 2.5 MG TAB PO SCH (16:00)
== END 2024-11-29 18:22 | disposition home or self-care (01) ==
LOC: ED 22:16 → 2S 22:16

== ENCOUNTER 2025-02-15 10:24 | Inpatient (IN) ==
--- NOTE | 2025-02-15 10:44 | Emergency Department Note ---
Impression & Plan Urinary tract infection, Acute hyperglycemia, Acidosis, lactic, Generalized weakness, Acute hyperkalemia ED Provider Note NAME: TOAN ALCANTARA AGE: 75 SEX: F : 1950 ARRIVES VIA: Ambulance INFORMANT: Patient, ED PROVIDER(S): Boom Muñoz DO CHIEF COMPLAINT: Generalized weakness HPI: The patient is a 75-year-old female who presented to the emergency department for generalized weakness. The patient had an episode where she felt very weak and had to sit on the floor. The patient states that she was recently in our facility for similar complaints. She was diagnosed with a urine infection. She was found have an elevated white blood cell count. She was started on an antibiotic but was not able to turkey picker the antibiotic because the pharmacies were closed. She was treated with an IV dose in the emergency department. The patient denies having any chest pain. She denies having any belly pain or vomiting. She states she just has generalized weakness. She has had no fever. The patient's family member called 911 and the patient was brought to the emergency department ROS: See above HPI for pertinent positives & negatives. A total of 10 systems reviewed and were otherwise negative. PAST MEDICAL HISTORY: See Below PAST SURGICAL HISTORY: See Below FAMILY HISTORY: See Below SOCIAL HISTORY: See Below HOME MEDICATIONS: See Below ALLERGIES: See Below VITALS: See Below PHYSICAL EXAMINATION: GENERAL: Patient is awake alert in no acute distress patient is resting comfortably and showing no signs of anxiety EYES: The conjunctivae are clear. The pupils are round and reactive. EARS, NOSE, MOUTH AND THROAT: The nose is without any evidence of any deformity. NECK: The neck is nontender and supple. RESPIRATORY: Normal respiratory effort is noted there is no evidence of wheezing rhonchi or rales CARDIOVASCULAR: Regular rate and rhythm was noted to auscultation. Systolic murmur suggested. GASTROINTESTINAL: The abdomen is soft. Abdomen is nontender. MUSCULOSKELETAL/EXTREMITIES: There is no evidence of gross deformity full range of motion is noted in the hips and shoulders. SKIN: There is no obvious evidence of any rash. There are no petechiae, pallor or cyanosis noted. NEUROLOGIC: Patient is awake alert and oriented x3. Strength is symmetric but diminished. MEDICAL DECISION MAKING: The patient is a 75-year-old female who presented to the emergency department for an evaluation. The patient was seen in our facility recently for generalized weakness. She was started on an antibiotic. Her culture did come back and the patient was found to have some resistance to her urine culture. The patient returned via ambulance today because she had another episode of generalized weakness. The patient was treated with IV fluids in the emergency department. She was also treated with IV antibiotics. I discussed the patient's laboratory and radiographic studies with her. Her blood pressure did start to drop a little bit the emergency department. She was also found of hyperglycemia and a very elevated white blood cell count compared to the previous visit. Given these findings I do feel the patient may be a better candidate for inpatient management. [facility] have agreed to evaluate the patient in the emergency department for further management and disposition. Triage Nursing notes reviewed. Prior medical records reviewed Vital Signs: reviewed and remarkable for episodes of hypotension. Differential diagnosis: Infection, dehydration, metabolic abnormality, hypo/hyperglycemia, electrolyte disturbance, anemia, hypoxia, cardiac sources, intracerebral event, toxicologic, neurologic, as well as other pathologies. ER treatment provided: See below Diagnostics interpreted by me: ECG: EKG was obtained in the emergency department. My interpretation is normal sinus rhythm at 63 bpm. There is no ectopy. Incomplete right bundle-branch block pattern was noted with nonspecific ST depressions. This was carried to a tracing from February 13, 2025. No changes were noted. Cardiac Monitoring: An order was placed for continuous cardiac monitoring. The monitor shows a rate of 61 bpm with sinus rhythm. Laboratory studies: As stated above and show below. Imaging studies: See below. Radiographic imaging was reviewed by myself Consultation(s): I discussed this case with Aliya who [facility] ED COURSE: Procedures: none Critical Care: I have personally spent greater than 40 minutes of critical care time in the direct management of this patient. This includes bedside care, interpretation of diagnostic studies, and testing, discussion with consultants, patient, and family members, and other required patient management activities. This 40 minutes is in excess of all separately billable procedures. Past Med/Surg History Problem List (Updated 02/15/25 @ 12:22 by Boom Muñoz DO) Acute hyperkalemia (Acute) Generalized weakness (Acute) Acidosis, lactic (Acute) Acute hyperglycemia (Acute) Urinary tract infection (Acute) Hypoalbuminemia (Acute) CKD (chronic kidney disease) (Acute) Chronic hyperglycemia (Acute) Pseudohyponatremia (Acute) Acute cystitis (Acute) Leukocytosis (Acute) Vasovagal episode (Acute) Adverse reaction to antibiotic (Acute) Rash (Acute) Paroxysmal atrial fibrillation Elevated troponin (Acute) Chest pain (Acute) UGIB (upper gastrointestinal bleed) GIB (gastrointestinal bleeding) (Acute) Anemia Atrial fibrillation with rapid ventricular response (Acute) Hypertensive urgency (Acute) Stented coronary artery Elevated troponin CKD (chronic kidney disease) stage 3, GFR 30-59 ml/min Hypertensive crisis DVT prophylaxis Hypertensive urgency Unstable angina Acute diastolic heart failure Morbid obesity Fatty liver Elevated transaminase level Encounter for pre-operative examination Vitamin D deficiency (Chronic) Arteriosclerotic cardiovascular disease (ASCVD) Background diabetic retinopathy associated with type 2 diabetes mellitus Chronic kidney disease, stage 3 (moderate) Diabetes mellitus type 2, uncontrolled Diabetic nephropathy associated with type 2 diabetes mellitus Dyslipidemia Frank's thyroiditis Hypertension (02/14/11) Hypothyroidism Old myocardial infarct (02/14/11) Overweight PAD (peripheral artery disease) Percutaneous transluminal coronary angioplasty status (02/14/11) Proteinuria Pure hypercholesterolemia (02/14/11) Type 2 diabetes mellitus with complications Type 2 diabetes mellitus, with long-term current use of insulin Vitamin D deficiency No pertinent past surgical history Acute hyperglycemia Failure of outpatient treatment COPD exacerbation Diabetes Psoriasis (Chronic) Hypertriglyceridemia Retinopathy Chronic kidney disease, stage III (moderate) (Chronic) Dr Patten Atrial fibrillation controlled with medication CHF (congestive heart failure) (Acute) Pyelonephritis Medical History Status post insertion of drug-eluting stent into left anterior descending (LAD) artery 2021 - at [facility] NSTEMI (non-ST elevated myocardial infarction) 2020 and again in 2021 - treated at [facility] Osteoarthritis Colon polyp hx Hypothyroidism Diabetes mellitus, type 2 IDDM On anticoagulant therapy Transient ischemic attack (TIA) ~2008. Hyperlipidemia Myocardial Infarction September 2004 Sleep apnea oxygen only at HS On home oxygen therapy 2lpm via n/c at HS Bronchitis hx - most recently in March 2023 (treated with abx) Hypertension Surgical History History of appendectomy History of section History of cataract surgery left History of heart artery stent x2 stents (2004) STACEY Eduardo; x1 stent 2020 at [facility]; x1 stent 2021 at [facility] History of cardiac cath 2004, 2020 and 2021 both at [facility] with stents placed. Hx of CABG x1 vessel (2004) Jihan CrowleyLecompte H/O colonoscopy Family History Father Diabetes FHx: colon cancer Social History Smoking Status: Never smoker Second Hand Exposure: No; Do You Dip or Chew Tobacco: No; Hx Alcohol Use: No Hx Substance Use: No Preferred Language: Cuban Communication Ability: Effective Visual Impairment: No Limitations Hearing Ability: Normal Abalone Sheller Required: No Beliefs That Will Affect Care: Spiritual Spiritual Healthcare Practices: cuong huerta marital status: Unknown Current Living Situation: Alone current occupational status: retired How many Children do You have: 3 Feels Safe at Home: Yes Diet: regular caffeine: Yes (2-3 cups of tea daily, occasional diet pepsi) Physical Activity Frequency: Does not Exercise Seatbelt Use: always Gender Identity: Female Assistive Devices: Oxygen - at Night Allergies Allergies Allergy/AdvReac Type Severity Reaction Status Date / Time Iodinated Contrast Media Allergy Intermediate TEARS AND Verified 01/28/25 14:30 FACE BECAME VERY REDDENED oxycodone Allergy Intermediate ITCHY RASH Verified 01/28/25 14:30 cephalexin [From Keflex] Allergy Rash Verified 02/15/25 10:35 diltiazem AdvReac Intermediate ROBBINS, Verified 01/28/25 14:30 flushing vaccine adjuvant system, AdvReac Intermediate psoarsis Verified 01/28/25 14:30 AS01B liposomal [From Shingrix (PF)] varicella-zoster virus AdvReac Intermediate psoarsis Verified 01/28/25 14:30 glycoprotein E, recombinant [From Shingrix (PF)] Blood-Group Specific Allergy Unknown NO BLOOD Uncoded 01/28/25 14:30 Substance PRODUCTS Home Meds Home Medications Medication Instructions Recorded Confirmed rosuvastatin 40 mg tablet 40 mg PO QAM 08/09/18 01/28/25 ezetimibe 10 mg tablet 10 mg PO QAM 04/05/19 01/28/25 fenofibrate 54 mg tablet 54 mg PO QAM 04/24/20 01/28/25 magnesium oxide 400 mg PO BID 07/23/21 01/28/25 nitroglycerin 0.4 mg sublingual 0.4 mg sublingual DIRECTED PRN 05/17/22 01/28/25 tablet Chest Pain blood-glucose sensor (Dexcom G6 11/17/22 01/28/25 Sensor device) carvedilol 3.125 mg tablet 3.125 mg PO BIDM 04/28/23 01/28/25 cyanocobalamin (vitamin B-12) 1,000 mcg PO QAM 04/28/23 01/28/25 1,000 mcg tablet (Vitamin B-12) lisinopril 20 mg tablet 20 mg PO HS 04/28/23 01/28/25 montelukast 10 mg tablet 10 mg PO QAM 04/28/23 01/28/25 sotalol 80 mg tablet 40 mg PO BID 04/28/23 01/28/25 warfarin 5 mg tablet 2.5 mg PO 3XWK 04/28/23 01/28/25 betamethasone dipropionate 0.05 % 1 applic topical BID 05/27/23 01/28/25 topical ointment furosemide 20 mg tablet 20 mg PO QAM 05/27/23 01/28/25 acetaminophen 500 mg tablet 500 - 1,000 mg PO BID PRN Pain 11/28/24 01/28/25 (Tylenol Extra Strength) amlodipine 2.5 mg tablet 2.5 mg PO HS 11/28/24 01/28/25 aspirin 81 mg chewable tablet 81 mg PO DAILY 11/28/24 01/28/25 guaifenesin 600 mg tablet, 600 mg PO Q12H PRN Congestion 11/28/24 01/28/25 extended release 12 hr (Mucinex) insulin lispro 100 unit/mL 30 unit subcut AC 11/28/24 01/28/25 subcutaneous pen (Humalog KwikPen (U-100) Insulin) levothyroxine 125 mcg tablet 125 mcg PO DAILYBB 11/28/24 01/28/25 mometasone-formoterol HFA 100 2 puff inhalation BID 11/28/24 01/28/25 mcg-5 mcg/actuation aerosol inhaler (Dulera) sodium chloride 0.65 % nasal spray 1 spray intranasal .Q1H PRN 11/28/24 01/28/25 aerosol (Saline Nasal) BLOODY/DRY NOSE sodium chloride 3 % for 4 ml inhalation BID 11/28/24 01/28/25 nebulization sodium chloride-aloe vera nasal 1 spray intranasal .Q1-4HRS PRN 11/28/24 01/28/25 spray (Bladen Saline Gel nasal spray) BLOODY/DRY NOSE warfarin 5 mg tablet 5 mg PO 4XWK 11/28/24 01/28/25 insulin glargine 100 unit/mL (3 30 unit subcut PM 11/29/24 01/28/25 mL) subcutaneous pen (Lantus Solostar U-100 Insulin) Previous Rx's Medication Instructions Recorded clopidogrel 75 mg tablet 75 mg PO QAM #30 tabs 11/13/20 isosorbide mononitrate 60 mg 60 mg PO QAM 30 days #30 tabs 01/05/21 tablet,extended release 24 hr ipratropium 0.5 mg-albuterol 3 mg 3 ml inhalation Q8H PRN wheezing 09/06/21 (2.5 mg base)/3 mL nebulization #90 mL soln pen needle, diabetic 31 gauge x #400 ea 11/26/24 3/16" tirzepatide 2.5 mg/0.5 mL 2.5 mg (0.5 mL) subcut Q7D #2 mL 01/16/25 subcutaneous pen injector cefpodoxime 200 mg tablet 200 mg PO BID #10 tabs 02/13/25 cefpodoxime 200 mg tablet 200 mg PO Q12H #10 tabs 02/13/25 Results & Data (ED) Vital Signs Vital Signs - 24 hr 02/15/25 10:36 02/15/25 10:36 02/15/25 10:36 Temperature 36.9 C Temperature Source Oral Pulse Rate 67 Pulse Rate [Apical] Pulse Strength [Apical] Respiratory Rate 18 Respiratory Effort / Characteristics Non-Labored Respiratory Depth Normal Normal Respiratory Pattern Blood Pressure 122/50 L Blood Pressure [Right Arm] Blood Pressure Mean 74 Blood Pressure Mean [Right Arm] Pulse Oximetry 100 Oxygen Delivery Method Room Air Room Air Sepsis Recent Fever Within 48 Hours No Sepsis New/Unexplained Change in Mental Status No Sepsis Action Taken by Nursing No Action Required 02/15/25 11:01 02/15/25 11:25 02/15/25 11:32 Temperature Temperature Source Pulse Rate 59 L Pulse Rate [Apical] 59 L Pulse Strength [Apical] Normal Respiratory Rate 18 Respiratory Effort / Characteristics Non-Labored Spontaneous Respiratory Depth Normal Respiratory Pattern Regular Blood Pressure Blood Pressure [Right Arm] 114/47 L Blood Pressure Mean Blood Pressure Mean [Right Arm] 69 Pulse Oximetry 95 99 Oxygen Delivery Method Room Air Room Air Sepsis Recent Fever Within 48 Hours Sepsis New/Unexplained Change in Mental Status Sepsis Action Taken by Nursing 02/15/25 12:10 Temperature Temperature Source Pulse Rate Pulse Rate [Apical] 61 Pulse Strength [Apical] Respiratory Rate 20 Respiratory Effort / Characteristics Non-Labored Spontaneous Respiratory Depth Normal Respiratory Pattern Blood Pressure Blood Pressure [Right Arm] 103/53 L Blood Pressure Mean Blood Pressure Mean [Right Arm] 69 Pulse Oximetry 96 Oxygen Delivery Method Room Air Sepsis Recent Fever Within 48 Hours Sepsis New/Unexplained Change in Mental Status Sepsis Action Taken by Care Home Medications Current Medication List: was personally reviewed by me Laboratory Data Attestation: I reviewed the patient's lab results. 02/15/25 10:44 02/15/25 10:44 Lab Results 02/15/25 02/15/25 02/15/25 Range/Units 10:44 10:45 11:15 WBC 36.58 H* (4.8-10.8) K/ul RBC 4.31 (4.20-5.40) M/uL Hgb 13.3 (12.0-16.0) g/dL Hct 40.0 (37.0-47.0) % MCV 92.8 (80.0-100.0) fL MCH 30.9 (25.0-34.0) pg MCHC 33.3 (32.0-36.0) g/dL RDW Std Deviation 44.0 (36.4-46.3) fL RDW Coeff of Ree 13.0 (11.5-14.5) % Plt Count 167 (130-400) K/uL MPV 11.5 (9.4-12.4) fL Immature Gran % (Auto) 1.9 % Neut % (Auto) 91.8 % Lymph % (Auto) 4.1 % Graham % (Auto) 1.8 % Eos % (Auto) 0.2 % Baso % (Auto) 0.2 % Neut # (Auto) 33.58 H (1.40-6.50) K/uL Lymph # (Auto) 1.49 (1.20-3.40) K/uL Graham # (Auto) 0.67 H (0.11-0.59) K/uL Eos # (Auto) 0.08 (0.00-0.50) K/uL Baso # (Auto) 0.06 (0.00-0.20) K/uL Immature Gran # (Auto) 0.70 H (0.01-0.20) K/uL Polychromasia 1+ Echinocytes 1+ Acanthocytes (Spur) 1+ PT (9.0-12.0) Seconds INR (0.9-1.1) APTT (21-31) Seconds PTT Ratio Sodium 134 L (136-145) mmol/L Potassium 5.3 H D (3.5-5.1) mmol/L Chloride 98 (98-107) mmol/L Carbon Dioxide 27 (21-32) mmol/L Anion Gap 9 (3-11) BUN 45 H (6-23) mg/dl Creatinine 1.47 H (0.6-1.2) mg/dl Est Cr Clr Drug Dosing 33.6 ml/min eGFR 36.54 BUN/Creatinine Ratio 30.6 H (10-20) Glucose 311 H* (70-99(Fasting)) mg/dl Lactate (0.4-2.0) mmol/L Calcium 8.3 L (8.6-10.3) mg/dl Magnesium 1.9 (1.7-2.4) mg/dl Total Bilirubin 1.0 (0.2-1.0) mg/dl AST 22 (13-39) U/L ALT 18 (7-52) U/L Alkaline Phosphatase 41 (34-104) U/L Total Creatine Kinase 28 (26-192) U/L Troponin I High Sens 17.6 H D (0-14) pg/ml C-Reactive Protein (0-0.5) mg/dl Total Protein 5.3 L (6.0-8.3) gm/dl Albumin 2.8 L (3.4-5.0) gm/dl Globulin 2.5 (2.5-4.0) gm/dl Albumin/Globulin Ratio 1.1 (0.9-2) Procalcitonin 0.23 (0-0.5) ng/ml TSH 1.505 (0.300-4.500) uIu/ml Urine Color Urine Appearance (Clear) Urine pH (4.5-7.5) Ur Specific [place] (1.000-1.030) Urine Protein (Negative) Urine Glucose (UA) (Negative) Urine Ketones (Negative) Urine Blood (Negative) Urine Nitrite (Negative) Urine Bilirubin (Negative) Urine Urobilinogen (Negative) Ur Leukocyte Esterase (Negative) Urine WBC (Auto) (0-5) /hpf Urine RBC (Auto) (0-2) /hpf U Hyaline Cast (Auto) (0-2) /lpf U Epithel Cells (Auto) (0-2) /hpf Urine Bacteria (Auto) (None Seen) Granular Casts (None Prsent) /lpf Urine Mucus (None Prsent) Urine Comment SARS-CoV-2 (PCR) NEGATIVE (Negative) Influenza Type A (PCR) Negative (Neg) Influenza Type B (PCR) Negative (Neg) RSV (RT-PCR) Negative (Neg) 02/15/25 02/15/25 02/15/25 Range/Units 11:18 11:24 Unknown WBC (4.8-10.8) K/ul RBC (4.20-5.40) M/uL Hgb (12.0-16.0) g/dL Hct (37.0-47.0) % MCV (80.0-100.0) fL MCH (25.0-34.0) pg MCHC (32.0-36.0) g/dL RDW Std Deviation (36.4-46.3) fL RDW Coeff of Ree (11.5-14.5) % Plt Count (130-400) K/uL MPV (9.4-12.4) fL Immature Gran % (Auto) % Neut % (Auto) % Lymph % (Auto) % Graham % (Auto) % Eos % (Auto) % Baso % (Auto) % Neut # (Auto) (1.40-6.50) K/uL Lymph # (Auto) (1.20-3.40) K/uL Graham # (Auto) (0.11-0.59) K/uL Eos # (Auto) (0.00-0.50) K/uL Baso # (Auto) (0.00-0.20) K/uL Immature Gran # (Auto) (0.01-0.20) K/uL Polychromasia Echinocytes Acanthocytes (Spur) PT 16.7 H (9.0-12.0) Seconds INR 1.6 H (0.9-1.1) APTT 29 (21-31) Seconds PTT Ratio 1.1 Sodium (136-145) mmol/L Potassium (3.5-5.1) mmol/L Chloride (98-107) mmol/L Carbon Dioxide (21-32) mmol/L Anion Gap (3-11) BUN (6-23) mg/dl Creatinine (0.6-1.2) mg/dl Est Cr Clr Drug Dosing ml/min eGFR BUN/Creatinine Ratio (10-20) Glucose (70-99(Fasting)) mg/dl Lactate 3.3 H* (0.4-2.0) mmol/L Calcium (8.6-10.3) mg/dl Magnesium (1.7-2.4) mg/dl Total Bilirubin (0.2-1.0) mg/dl AST (13-39) U/L ALT (7-52) U/L Alkaline Phosphatase (34-104) U/L Total Creatine Kinase (26-192) U/L Troponin I High Sens (0-14) pg/ml C-Reactive Protein 2.74 H (0-0.5) mg/dl Total Protein (6.0-8.3) gm/dl Albumin (3.4-5.0) gm/dl Globulin (2.5-4.0) gm/dl Albumin/Globulin Ratio (0.9-2) Procalcitonin (0-0.5) ng/ml TSH (0.300-4.500) uIu/ml Urine Color Dark Yellow Urine Appearance Cloudy A (Clear) Urine pH 5.0 (4.5-7.5) Ur Specific [place] 1.022 (1.000-1.030) Urine Protein Trace H (Negative) Urine Glucose (UA) 2+ H (Negative) Urine Ketones Trace H (Negative) Urine Blood Negative (Negative) Urine Nitrite Negative (Negative) Urine Bilirubin Negative (Negative) Urine Urobilinogen Negative (Negative) Ur Leukocyte Esterase 1+ H (Negative) Urine WBC (Auto) 11-20 H (0-5) /hpf Urine RBC (Auto) 6-10 H (0-2) /hpf U Hyaline Cast (Auto) >20 H (0-2) /lpf U Epithel Cells (Auto) >20 H (0-2) /hpf Urine Bacteria (Auto) None Seen (None Seen) Granular Casts Present A (None Prsent) /lpf Urine Mucus Present A (None Prsent) Urine Comment SARS-CoV-2 (PCR) (Negative) Influenza Type A (PCR) (Neg) Influenza Type B (PCR) (Neg) RSV (RT-PCR) (Neg) Administered Medications Sodium Chloride (Nss) 1,000 mls @ 999 mls/hr IV .Q1H1M ONE Stop: 02/15/25 12:43 Last Admin: 02/15/25 11:53 Dose: 999 mls/hr Documented By: CHRISTEN Discontinued Medications Cefepime HCl (Maxipime 2000mg) 2,000 mg in 20 mls @ 5 mls/min IV NOW STA; Protocol Stop: 02/15/25 10:43 Last Admin: 02/15/25 11:20 Dose: 5 mls/min Documented By: CHRISTEN Imaging Data Attestation: I personally reviewed and interpreted this imaging study as follows: My Impression: 1 view chest x-ray was obtained in the emergency department. My interpretation is no free air or definite infiltrate, final report below. Radiologist's Impression: Chest X-Ray 02/15/25 10:35 XR chest 1V portable CLINICAL HISTORY: weakness COMPARISON STUDY: 02/13/2025 FINDINGS: Stable CABG. There are mitral valvular calcifications. Heart size and pulmonary vasculature are normal. No consolidation or pleural effusion seen. No pneumothorax. IMPRESSION: No acute findings. ACT 112: Negative or not required by law. Electronically signed by: Ceasar Segovia M.D. 02/15/2025 11:[address] 02/15/25 10:35 CT head/brain wo con CLINICAL HISTORY: weakness. TECHNIQUE: Multiple axial CT images of the head were obtained without contrast. A dose lowering technique was utilized adhering to the principles of ALARA. COMPARISON: 05/12/2022 FINDINGS: No intracranial hemorrhage seen. No mass effect, midline shift, or hydrocephalus. No skull fracture seen. There is complete opacification of the maxillary sinuses, increased. There is opacification of a few ethmoid air cells, increased. IMPRESSION: 1. No acute intracranial findings. 2. Increased maxillary sinusitis. ACT 112: Negative or not required by law. The above report was generated using voice recognition software. It may contain grammatical, syntax or spelling errors. Electronically signed by: Ceasar Segovia M.D. 02/15/2025 11:29 AM Abdomen/Pelvis CT 02/15/25 10:40 CT SCAN OF THE ABDOMEN AND PELVIS WITHOUT IV CONTRAST CLINICAL HISTORY: Infection. COMPARISON STUDY: Abdominal CT dated 09/27/2024. TECHNIQUE: CT scan of the abdomen and pelvis is performed from the lung bases to the proximal femora. Images are reviewed in the axial, sagittal, and coronal planes. IV contrast was not administered for this examination. Note that examination is significantly suboptimal without oral and IV contrast. A dose lowering technique was utilized adhering to the principles of ALARA. There is streak artifact from the arms which could not be elevated above the abdomen. CT DOSE: 2064.21 mGy.cm FINDINGS: Lung bases: The patient is status post midline sternotomy. The heart is normal in size and without pericardial effusion. The coronary arteries and mitral annulus are densely calcified. The lung bases are clear. There is a tiny hiatal hernia. Liver: The unenhanced liver is normal in size, contour, and attenuation. There is no intrahepatic biliary ductal dilatation. Gallbladder: There are numerous calcified gallstones with no CT evidence of acute cholecystitis. Spleen: Normal in size and attenuation. Pancreas: The unenhanced pancreas is grossly unremarkable. Adrenal glands: Unremarkable. Kidneys: The unenhanced kidneys demonstrate cortical atrophy and are without hydronephrosis. No renal calculi are identified and there is no ureteral stone. A 1.9 cm left lower pole renal cyst is unchanged. Abdominal vasculature: The abdominal aorta is normal in course and caliber noting advanced atherosclerotic calcification. Bowel: There is no bowel obstruction. The appendix is not identified and reported surgically absent. Peritoneum: There is no intraperitoneal free air or abdominal ascites. There is a fat-containing umbilical hernia. Lymphadenopathy: None. Pelvic viscera: The bladder is decompressed and grossly unremarkable. The uterus is normal as visualized. Prominence of the right ovary is similar to previous. This measures up to 3.4 cm this is unchanged from prior studies. Skeletal structures: The skeletal structures are osteopenic. There is mild lumbosacral spondylosis. Degenerative sclerosis is seen in the sacroiliac joints. No lytic or blastic lesions are seen. Soft tissues with associated underaeration within the abdominal pannus are likely related to subcutaneous injections. IMPRESSION: 1. No acute infectious or inflammatory findings are identified in the abdomen or pelvis on this unenhanced examination. 2. Cholelithiasis. 3. Advanced coronary artery atherosclerosis. 4. Additional findings as above. ACT 112: Negative or not required by law. Electronically signed by: Bartolome Tellez M.D. 02/15/2025 11:23 AM Discharge Plan Visit Data Chief Complaint: Weakness Stated Complaint: WEAKNESS, ILLNESS ED Provider: Boom Muñoz Discharge Problem: Urinary tract infection, Acute hyperglycemia, Acidosis, lactic, Generalized weakness, Acute hyperkalemia Patient Disposition: Being Evaluated by Hospitalist Condition: Fair Forms Stand Alone Forms: [facility] Prescriptions Prescriptions: No Action (DME) pen needle, diabetic 31 gauge x 3/16" needle See Rx Instructions .ROUTE .MEDSUPPLY Qty: 400 3RF Rx Instructions: use 4 needles daily tirzepatide 2.5 mg/0.5 mL pen injector 2.5 mg subcut Q7D Qty: 2 0RF ezetimibe 10 mg tablet 10 mg PO QAM (DME) Dexcom G6 Sensor Device See Rx Instructions .Route Rx Instructions: As directed fenofibrate 54 mg tablet 54 mg PO QAM magnesium oxide 400 mg magnesium capsule 400 mg PO BID nitroglycerin 0.4 mg tablet, sublingual 0.4 mg sublingual DIRECTED PRN (Reason: Chest Pain) Rx Instructions: place under tongue 1 tab every 5 minutes as needed for chest pain,up to 3 doses in 15 minutes rosuvastatin 40 mg tablet 40 mg PO QAM clopidogrel 75 mg Tablet 75 mg PO QAM Qty: 30 1RF isosorbide mononitrate 60 mg Tablet Extended Release 24 Hr 60 mg PO QAM 30 Days Qty: 30 2RF ipratropium-albuterol 0.5 mg-3 mg(2.5 mg base)/3 mL solution for nebulization 3 ml INH Q8H PRN (Reason: wheezing) Qty: 90 0RF Rx Instructions: J10.1, R05 cyanocobalamin (vitamin B-12) [Vitamin B-12] 1,000 mcg Tablet 1,000 mcg PO QAM warfarin 5 mg Tablet 2.5 mg PO 3XWK Rx Instructions: MON, WED, & FRI EVENINGS montelukast 10 mg Tablet 10 mg PO QAM sotalol 80 mg tablet 40 mg PO BID lisinopril 20 mg tablet 20 mg PO HS carvedilol 3.125 mg tablet 3.125 mg PO BIDM Rx Instructions: take with morning and evening meals furosemide 20 mg Tablet 20 mg PO QAM betamethasone dipropionate 0.05 % Ointment 1 applic TOPICAL BID Rx Instructions: apply to psoriasis on right wrist and left calf twice daily (or more if itchy instead of scratching) and use plastic wrap on left calf short term to improve faster cefpodoxime 200 mg tablet 200 mg PO BID Qty: 10 0RF Rx Instructions: must administer with a meal/food cefpodoxime 200 mg tablet 200 mg PO Q12H Qty: 10 0RF Rx Instructions: must administer with a meal/food sodium chloride 3 % Solution For Nebulization 4 ml INHALATION BID amlodipine 2.5 mg tablet 2.5 mg PO HS acetaminophen [Tylenol Extra Strength] 500 mg Tablet 500 - 1,000 mg PO BID PRN (Reason: Pain) warfarin 5 mg Tablet 5 mg PO 4XWK Rx Instructions: SUN, TUES, THURS & SAT EVENINGS aspirin 81 mg Tablet,Chewable 81 mg PO DAILY Saline Nasal 0.65 % Aerosol,Mobile 1 spray INTRANASAL .Q1H PRN (Reason: BLOODY/DRY NOSE) Bladen Saline Gel Mobile,Non-Aerosol 1 spray INTRANASAL .Q1-4HRS PRN (Reason: BLOODY/DRY NOSE) Dulera 100-5 mcg/actuation Hfa Aerosol Inhaler 2 puff INHALATION BID guaifenesin [Mucinex] 600 mg Tablet Extended Release 12hr 600 mg PO Q12H PRN (Reason: Congestion) levothyroxine 125 mcg tablet 125 mcg PO DAILYBB insulin lispro [Humalog KwikPen Insulin] 100 unit/mL insulin pen 30 unit subcut AC MDD 120 units insulin glargine [Lantus Solostar U-100 Insulin] 100 unit/mL (3 mL) Insulin Pen 30 unit SUBCUT PM Referrals Referrals: Jessica Pompa MD [Primary Care Provider] - 02/18/25 11:20 am
--- NOTE | 2025-02-15 11:10 | XRay Report ---
XR chest 1V portable CLINICAL HISTORY: weakness COMPARISON STUDY: 02/13/2025 FINDINGS: Stable CABG. There are mitral valvular calcifications. Heart size and pulmonary vasculature are normal. No consolidation or pleural effusion seen. No pneumothorax. IMPRESSION: No acute findings. ACT 112: Negative or not required by law. Electronically signed by: Ceasar Segovia M.D. 02/15/2025 11:09 AM
[2025-02-15 11:13] LABS: Hematocrit (blood only) 40.0 % (37.0-47.0); Hemoglobin 13.3 g/dL (12.0-16.0); Mean Corpuscular Hemoglobin 30.9 pg (25.0-34.0); Mean Corpuscular Volume 92.8 fL (80.0-100.0); Platelet Count 167 K/uL (130-400); RDW Standard Deviation 44.0 fL (36.4-46.3); Red Blood Count 4.31 M/uL (4.20-5.40); White Blood Count 36.58 K/ul (4.8-10.8)
[2025-02-15 11:15] LABS: Acanthocytes 1+; Immature Granulocytes # (auto) 0.70 K/uL (0.01-0.20); Immature Granulocytes % (auto) 1.9 %; Polychromasia 1+
[2025-02-15] MEDS: CEFEPIME 2000MG 2,000 MG/20 ML SYR IV STA (11:20)
[2025-02-15 11:21] LABS: Alanine Aminotransferase 18.0 U/L (7-52); Albumin Globulin Ratio 1.1 (0.9-2); Albumin Level 2.8 gm/dl (3.4-5.0); Alkaline Phosphatase 41.0 U/L (34-104); Anion Gap 9.0 (3-11); Bilirubin,Total 1.0 mg/dl (0.2-1.0); Blood Urea Nitrogen 45.0 mg/dl (6-23); Calcium 8.3 mg/dl (8.6-10.3); Carbon Dioxide 27.0 mmol/L (21-32); Chloride 98.0 mmol/L (98-107); Creatine Kinase 28.0 U/L (26-192); Creatinine Clr Calc Pharmacy 33.6 ml/min; Globulin 2.5 gm/dl (2.5-4.0); Glucose 311.0 mg/dl (70-99(Fasting)); Magnesium 1.9 mg/dl (1.7-2.4); Potassium 5.3 mmol/L (3.5-5.1); Sodium 134.0 mmol/L (136-145); Total Protein 5.3 gm/dl (6.0-8.3)
--- NOTE | 2025-02-15 11:25 | CT Scan Report ---
CT SCAN OF THE ABDOMEN AND PELVIS WITHOUT IV CONTRAST CLINICAL HISTORY: Infection. COMPARISON STUDY: Abdominal CT dated 09/27/2024. TECHNIQUE: CT scan of the abdomen and pelvis is performed from the lung bases to the proximal femora. Images are reviewed in the axial, sagittal, and coronal planes. IV contrast was not administered for this examination. Note that examination is significantly suboptimal without oral and IV contrast. A dose lowering technique was utilized adhering to the principles of ALARA. There is streak artifact fr om the arms which could not be elevated above the abdomen. CT DOSE: 2064.21 mGy.cm FINDINGS: Lung bases: The patient is status post midline sternotomy. The heart is normal in size and without pe ricardial effusion. The coronary arteries and mitral annulus are densely calcified. The lung bases ar e clear. There is a tiny hiatal hernia. Liver: The unenhanced liver is normal in size, contour, and attenuation. There is no intrahepatic kalyan iary ductal dilatation. Gallbladder: There are numerous calcified gallstones with no CT evidence of acute cholecystitis. Spleen: Normal in size and attenuation. Pancreas: The unenhanced pancreas is grossly unremarkable. Adrenal glands: Unremarkable. Kidneys: The unenhanced kidneys demonstrate cortical atrophy and are without hydronephrosis. No renal calculi are identified and there is no ureteral stone. A 1.9 cm left lower pole renal cyst is unchan ged. Abdominal vasculature: The abdominal aorta is normal in course and caliber noting advanced atheroscle rotic calcification. Bowel: There is no bowel obstruction. The appendix is not identified and reported surgically absent. Peritoneum: There is no intraperitoneal free air or abdominal ascites. There is a fat-containing umbi lical hernia. Lymphadenopathy: None. Pelvic viscera: The bladder is decompressed and grossly unremarkable. The uterus is normal as visuali zed. Prominence of the right ovary is similar to previous. This measures up to 3.4 cm this is unchang ed from prior studies. Skeletal structures: The skeletal structures are osteopenic. There is mild lumbosacral spondylosis. D egenerative sclerosis is seen in the sacroiliac joints. No lytic or blastic lesions are seen. Soft tissues with associated underaeration within the abdominal pannus are likely related to subcutan eous injections. IMPRESSION: 1. No acute infectious or inflammatory findings are identified in the abdomen or pelvis on this unenh anced examination. 2. Cholelithiasis. 3. Advanced coronary artery atherosclerosis. 4. Additional findings as above. ACT 112: Negative or not required by law. Electronically signed by: Bartolome Tellez M.D. 02/15/2025 11:23 AM
--- NOTE | 2025-02-15 11:31 | CT Scan Report ---
CT head/brain wo con CLINICAL HISTORY: weakness. TECHNIQUE: Multiple axial CT images of the head were obtained without contrast. A dose lowering tech nique was utilized adhering to the principles of ALARA. COMPARISON: 05/12/2022 FINDINGS: No intracranial hemorrhage seen. No mass effect, midline shift, or hydrocephalus. No skull fracture seen. There is complete opacification of the maxillary sinuses, increased. There is opacific ation of a few ethmoid air cells, increased. IMPRESSION: 1. No acute intracranial findings. 2. Increased maxillary sinusitis. ACT 112: Negative or not required by law. The above report was generated using voice recognition software. It may contain grammatical, syntax o r spelling errors. Electronically signed by: Ceasar Segovia M.D. 02/15/2025 11:29 AM
[2025-02-15 11:35] LABS: Thyroid Stimulating Hormone 1.505 uIu/ml (0.300-4.500)
[2025-02-15 11:44] LABS: Influenza A virus by PCR Negative (Neg); Influenza B virus by PCR Negative (Neg); SARS CoV2 RNA(COVID-19) Ceph NEGATIVE (Negative)
[2025-02-15] MEDS: SODIUM CHLORIDE 0.9% 1,000 ML IV ONE ×2 (11:53→12:32)
--- NOTE | 2025-02-15 11:59 | History & Physical Report ---
Date of Service February 15, 2025 Assessment & Plan (1) Urinary tract infection: (2) CHF (congestive heart failure): (3) CKD (chronic kidney disease): (4) Arteriosclerotic cardiovascular disease (ASCVD): (5) Paroxysmal atrial fibrillation: (6) Type 2 diabetes mellitus, with long-term current use of insulin: (7) Hypertension: (8) Hypothyroidism: Plan Patient is a 75-year-old female with the PMHx of diabetes, CKD stage III, hypothyroidism, hyperlipidemia, nocturnal hypoxia, sleep apnea, CAD, paroxysmal atrial fibrillation, chronic diastolic HF, hypertension, mitral stenosis, nonrheumatic aortic valve stenosis, morbid obesity, hepatic steatosis, psoriasis, and osteoarthritis presenting with weakness and lightheadedness. [place] warm earlier today without no measurable temperature, but needed to turn on ac unit at home. Was in the ED 02/13 with feelings of lightheadedness, dehydration and near syncopal event that happened earlier in the day at the grocery store. Hemodynamically stable at that time and reporting some fatigue and weakness. Leukocytosis noted on lab workup with elevated wbc 18K with suspected UTI per urine analysis findings. She was given ceftriaxone in the emergency department and prescribed cefpodoxime for 5-day course at home; she was unable to get the prescription filled. Urine + Citrobacter and Group B strep from 02/13. #Urinary tract infection * Admit to [facility] for further management * Leukocytosis w/ WBC 35K, lactate 3.3-> 2.6, normal procal, weakness, urine culture + citrobacter/ group B strep, no urinary symptoms, neg chest Xray, not fully meeting sepsis criteria * Cefepime 2gm Q8H for UTI management * 2L NSS given in the ED; will hold additional fluids for now and monitor hemodynamics * Trend labs #Congestive Heart Failure #Hypertension * NAD, no chest pain, euvolemic on exam; mild trop elevation 17.6 most likely demand in setting of infection * Continue home norvsc, coreg, ACEI, imdur * Borderline hypotensive in the ED to 103/53; fluid resus in ED, euvolemic-> hold home lasix and reassess in the morning * Trend BP's for Goal 140/80 * Most recent ECHO from November showing EF 60-64%, moderate LVH, LAE moderately dilated, grade 2 diastolic dysfunction, moderate calcification of the aortic valve with moderate stenosis, severe mitral annular calcification as well as chordae, mild MS/MR/TR, PASP 45--mild pulmonary hypertension #JAYLEN * JAYLEN noted with Creatinine 1.47; baseline 1.2 * Holding home lasix * Trend BMP with morning labs #ASCVD * status post CABG x1 2004 * status post PCI of the ostial LAD with a single drug-eluting stent; on triple treatment with asa, plavix, coumadin now * Continue home statin and zetia and fenofibrate #Paroxysmal A fib * chronic anticoagulation with warfarin; subtherapeutic INR 1.6; previously INR 2 per outside record; spoke to Pharmacy re: warfarin dosing will give 5 mg today and then resume typical home regimen * EKG showing Normal sinus rhythm with incomplete right bundle branch block, rate 63 bpm, QTc 472 * Mag 1.9 * continue home sotalol; mag supplement #Type II DM * Glucose elevated to 311, most likely a combination of noncompliance with long- acting insulin and recent steroid use * Has weaned evening lantus to 10 units, but has not taken this is 2 days-> will continue Lantus 10 units nightly here * Has CGM-> may use CGM protocol here * Regular insulin with sliding scale at home with meals * SSI while inpatient for goal BSG 110-140-> adjust as needed #LILY * No cpap at home; uses 2 LPM supplemental oxygen nightly via NC * DuoNeb at home as needed if she has wheezing-> clear on exam here #Hypothyroidism * TSH 1.5 * continue home levothyroxine DVT Ppx: on warfarin; scds Code status: Full PCP: Dr. Pompa Dispo: Admit Patient seen in collaboration with Dr. Ribera. Please see addendum.I spent a total of 65 minutes coordinating, documenting and providing care for this patient excluding time spent in the performance of separately billed services or time spent by another provider/QHP. History of Present Illness Primary Care Provider: Jessica Pompa MD Patient is a 75-year-old female with the PMHx of diabetes, CKD stage III, hypothyroidism, hyperlipidemia, nocturnal hypoxia, sleep apnea, CAD, paroxysmal atrial fibrillation, chronic diastolic HF, hypertension, mitral stenosis, nonrheumatic aortic valve stenosis, morbid obesity, hepatic steatosis, psoriasis, and osteoarthritis presenting with weakness and lightheadedness. [place] warm earlier today without no measurable temperature, but needed to turn on ac unit at home. Was in the ED 02/13 with feelings of lightheadedness, dehydration and near syncopal event that happened earlier in the day at the grocery store. Hemodynamically stable at that time and reporting some fatigue and weakness. Leukocytosis noted on lab workup with elevated wbc 18K with suspected UTI per urine analysis findings. She was given ceftriaxone in the emergency department and prescribed cefpodoxime for 5-day course at home; she was unable to get the prescription filled. Urine + Citrobacter and Group B strep from 02/13. Denies fever, chills, weight loss, headache, cognitive changes, vision/hearing changes, chest pain, SOB, swelling, difficulty breathing, urinary concerns, N/V/D, joint swelling/pain, ambulation difficulty, skin rashes, lesions, bleeding, bruising. Discussed with ED provider labs, specifically leukocytosis, management in the ED, and reason for admission for antibiotic management for suspected UTI. In the emergency department, patient had normal vital signs, hemodynamically stable. Leukocytosis noted on lab workup with WBC 36K, although not fully meeting sirs criteria with low temp, lactate 3.3. Normal procal. UA positive leukocyte esterase, blood, ketones, casts. NSS 2L given in the ED. Chest Xray without evidence of active disease. Has a significant cardiac history. Euvolemic with no cough today. Head CT without acute findings and showing increased maxillary sinusitis. CT abdomen/pelvis showed No acute infectious or inflammatory findings; Cholelithiasis. No abdominal pain on my exam. Also with advanced coronary artery atherosclerosis. As per external record, patient was seen by PCP on 01/25/25 for complaint of abnormal growth to her left nipple and prescribed keflex. She developed a widespread rash throughout her body while on keflex; treatment discontinued and she was then on steroids for Cephalosporin-induced generalized drug eruption. The rash is still present but improved per patient and daughter report. Was given Cefepime in the ED without no signs of allergic reaction. History obtained primarily from the patient and via hospitalization record. The patient's family was at the bedside and assisted with history of present illness, medications and events leading to today's hospitalization. External chart review obtained from [employer]. Allergies Allergy/AdvReac Type Severity Reaction Status Date / Time Iodinated Contrast Media Allergy Intermediate TEARS AND Verified 01/28/25 14:30 FACE BECAME VERY REDDENED oxycodone Allergy Intermediate ITCHY RASH Verified 01/28/25 14:30 cephalexin [From Keflex] Allergy Rash Verified 02/15/25 10:35 diltiazem AdvReac Intermediate ROBBINS, Verified 01/28/25 14:30 flushing vaccine adjuvant system, AdvReac Intermediate psoarsis Verified 01/28/25 14:30 [id number] liposomal [From Shingrix (PF)] varicella-zoster virus AdvReac Intermediate psoarsis Verified 01/28/25 14:30 glycoprotein E, recombinant [From Shingrix (PF)] Blood-Group Specific Allergy Unknown NO BLOOD Uncoded 01/28/25 14:30 Substance PRODUCTS Home Medications Medication Instructions Recorded Confirmed Type rosuvastatin 40 mg tablet 40 mg PO QAM 08/09/18 02/15/25 History ezetimibe 10 mg tablet 10 mg PO QAM 04/05/19 02/15/25 History fenofibrate 54 mg tablet 54 mg PO QAM 04/24/20 02/15/25 History clopidogrel 75 mg tablet 75 mg PO QAM #30 tabs 11/13/20 02/15/25 Rx isosorbide mononitrate 60 mg 60 mg PO QAM 30 days #30 tabs 01/05/21 02/15/25 Rx tablet,extended release 24 hr magnesium oxide 400 mg PO BID 07/23/21 02/15/25 History ipratropium 0.5 mg-albuterol 3 mg 3 ml inhalation Q8H PRN wheezing 09/06/21 02/15/25 Rx (2.5 mg base)/3 mL nebulization #90 mL soln nitroglycerin 0.4 mg sublingual 0.4 mg sublingual DIRECTED PRN 05/17/22 02/15/25 History tablet Chest Pain blood-glucose sensor (Dexcom G6 11/17/22 01/28/25 History Sensor device) carvedilol 3.125 mg tablet 3.125 mg PO BIDM 04/28/23 02/15/25 History cyanocobalamin (vitamin B-12) 1,000 mcg PO QAM 04/28/23 02/15/25 History 1,000 mcg tablet (Vitamin B-12) lisinopril 20 mg tablet 20 mg PO HS 04/28/23 02/15/25 History montelukast 10 mg tablet 10 mg PO QAM 04/28/23 02/15/25 History sotalol 80 mg tablet 40 mg PO BID 04/28/23 02/15/25 History warfarin 5 mg tablet 2.5 mg PO 3XWK 04/28/23 02/15/25 History betamethasone dipropionate 0.05 % 1 applic topical BID 05/27/23 02/15/25 History topical ointment furosemide 20 mg tablet 20 mg PO QAM 05/27/23 02/15/25 History pen needle, diabetic 31 gauge x #400 ea 11/26/24 01/28/25 Rx 3/16" acetaminophen 500 mg tablet 500 - 1,000 mg PO BID PRN Pain 11/28/24 02/15/25 History (Tylenol Extra Strength) amlodipine 2.5 mg tablet 2.5 mg PO HS 11/28/24 02/15/25 History aspirin 81 mg chewable tablet 81 mg PO DAILY 11/28/24 02/15/25 History guaifenesin 600 mg tablet, 600 mg PO Q12H PRN Congestion 11/28/24 02/15/25 History extended release 12 hr (Mucinex) insulin lispro 100 unit/mL 30 unit subcut AC 11/28/24 02/15/25 History subcutaneous pen (Humalog KwikPen (U-100) Insulin) levothyroxine 125 mcg tablet 125 mcg PO DAILYBB 11/28/24 02/15/25 History mometasone-formoterol HFA 100 2 puff inhalation BID 11/28/24 02/15/25 History mcg-5 mcg/actuation aerosol inhaler (Dulera) sodium chloride 0.65 % nasal spray 1 spray intranasal .Q1H PRN 11/28/24 02/15/25 History aerosol (Saline Nasal) BLOODY/DRY NOSE sodium chloride 3 % for 4 ml inhalation BID 11/28/24 02/15/25 History nebulization warfarin 5 mg tablet 5 mg PO 4XWK 11/28/24 02/15/25 History insulin glargine 100 unit/mL (3 10 - 30 unit subcut PM 11/29/24 02/15/25 History mL) subcutaneous pen (Lantus Solostar U-100 Insulin) Past Med/Surg History Problem List (Updated 12/26/25 @ 13:36 by Background Daemon) Acute hyperkalemia (Acute) Generalized weakness (Acute) Acidosis, lactic (Acute) Acute hyperglycemia (Acute) Urinary tract infection (Acute) Hypoalbuminemia (Acute) CKD (chronic kidney disease) (Acute) Chronic hyperglycemia (Acute) Pseudohyponatremia (Acute) Acute cystitis (Acute) Leukocytosis (Acute) Vasovagal episode (Acute) Adverse reaction to antibiotic (Acute) Rash (Acute) Paroxysmal atrial fibrillation Elevated troponin (Acute) Chest pain (Acute) UGIB (upper gastrointestinal bleed) GIB (gastrointestinal bleeding) (Acute) Anemia Atrial fibrillation with rapid ventricular response (Acute) Hypertensive urgency (Acute) Stented coronary artery Elevated troponin CKD (chronic kidney disease) stage 3, GFR 30-59 ml/min Hypertensive crisis DVT prophylaxis Hypertensive urgency Unstable angina Acute diastolic heart failure Morbid obesity Fatty liver Elevated transaminase level Encounter for pre-operative examination Vitamin D deficiency (Chronic) Arteriosclerotic cardiovascular disease (ASCVD) Background diabetic retinopathy associated with type 2 diabetes mellitus Chronic kidney disease, stage 3 (moderate) Diabetes mellitus type 2, uncontrolled Diabetic nephropathy associated with type 2 diabetes mellitus Dyslipidemia Frank's thyroiditis Hypertension (02/14/11) Hypothyroidism Old myocardial infarct (02/14/11) Overweight PAD (peripheral artery disease) Percutaneous transluminal coronary angioplasty status (02/14/11) Proteinuria Pure hypercholesterolemia (02/14/11) Type 2 diabetes mellitus with complications Type 2 diabetes mellitus, with long-term current use of insulin Vitamin D deficiency No pertinent past surgical history Acute hyperglycemia Failure of outpatient treatment COPD exacerbation Diabetes Psoriasis (Chronic) Hypertriglyceridemia Retinopathy Chronic kidney disease, stage III (moderate) (Chronic) Dr Patten Atrial fibrillation controlled with medication CHF (congestive heart failure) (Acute) Pyelonephritis Medical History Status post insertion of drug-eluting stent into left anterior descending (LAD) artery 2021 - at [facility] NSTEMI (non-ST elevated myocardial infarction) 2020 and again in 2021 - treated at [facility] Osteoarthritis Colon polyp hx Hypothyroidism Diabetes mellitus, type 2 IDDM On anticoagulant therapy Transient ischemic attack (TIA) ~2008. Hyperlipidemia Myocardial Infarction September 2004 Sleep apnea oxygen only at HS On home oxygen therapy 2lpm via n/c at HS Bronchitis hx - most recently in March 2023 (treated with abx) Hypertension Surgical History History of appendectomy History of section History of cataract surgery left History of heart artery stent x2 stents (2004) Jihan Eduardo; x1 stent 2020 at [facility]; x1 stent 2021 at [facility] History of cardiac cath 2004, 2020 and 2021 both at [facility] with stents placed. Hx of CABG x1 vessel (2004) STACEY Alesha H/O colonoscopy Family History Father Diabetes FHx: colon cancer Social History Smoking Status: Never smoker Second Hand Exposure: No; Do You Dip or Chew Tobacco: No; Tobacco Cessation Education Requested by Patient: No Hx Alcohol Use: No Hx Substance Use: No Preferred Language: German Communication Ability: Effective Visual Impairment: No Limitations Hearing Ability: Normal Professor Of Communication Required: No Beliefs That Will Affect Care: Orthodoxy Orthodoxy Beliefs: Jehovah Witness marital status: Unknown Current Living Situation: Alone current occupational status: retired How many Children do You have: 3 Other Information That Helps Us Care for You: No Feels Safe at Home: Yes Safety Concerns: Feels Safe At This Time Diet: regular caffeine: Yes (2-3 cups of tea daily, occasional diet pepsi) Physical Activity Frequency: Does not Exercise Seatbelt Use: always Gender Identity: Female Assistive Devices: Glasses Review of Systems Review of Systems: All systems reviewed & are unremarkable except as noted in HPI & below Physical Exam Physical Exam: VITALS: Reviewed. WEIGHT/BMI reviewed. GEN: well-developed, NAD. PSYCH: Good Judgment. AOx3. Normal memory, mood, and affect. HEENT -Head: NC/AT; -Eyes: PERRL, EOMI. No discharge or redn ess; -Ears: External ears are normal -Nose: Normal nares. -Mouth and throat: MMM. Normal gums, muc lily, palate,. Good dentition. NECK: Supple, with no masses. CV:+ systolic murmur, regular rhythm, no swelling, cool extremities with +2 pedal pulse. LUNGS: Clear and equal, no cough, symmetric chest rise ABD: Soft, NT/ND, NBS, no masses or organomegaly. : N/A SKIN: Erythemic, diffuse rash to chest, anterior extensor surface, MSK: No deformities, Normal gait. EXT: No clubbing, cyanosis, or edema. NEURO: CN II-XII grossly intact. Speech clear. No focal deficits. Results & Data Results & Data Vital Signs (Past 12 Hours) Vital Signs Temp Pulse Pulse Resp BP BP Pulse Ox 02/15/25 11:32 59 L 02/15/25 11:25 59 L 18 114/47 L 99 02/15/25 11:01 95 02/15/25 10:36 02/15/25 10:36 36.9 C 67 18 122/50 L 100 O2 Del Method 02/15/25 11:32 02/15/25 11:25 Room Air 02/15/25 11:01 Room Air 02/15/25 10:36 Room Air 02/15/25 10:36 Room Air Laboratory Results Short CBC 02/15/25 Range/Units 10:44 WBC 36.58 H* (4.8-10.8) K/ul Hgb 13.3 (12.0-16.0) g/dL Hct 40.0 (37.0-47.0) % Plt Count 167 (130-400) K/uL BMP 02/15/25 10:44 Sodium 134 L Potassium 5.3 H D Chloride 98 Carbon Dioxide 27 BUN 45 H Creatinine 1.47 H Glucose 311 H* Calcium 8.3 L Cardiac Enzymes 02/15/25 Range/Units 10:44 Total Creatine Kinase 28 (26-192) U/L Liver Function 02/15/25 Range/Units 10:44 Total Bilirubin 1.0 (0.2-1.0) mg/dl AST 22 (13-39) U/L ALT 18 (7-52) U/L Alkaline Phosphatase 41 (34-104) U/L Albumin 2.8 L (3.4-5.0) gm/dl Urine 02/15/25 Range/Units Unknown Urine Color Dark Yellow Urine Appearance Cloudy A (Clear) Urine pH 5.0 (4.5-7.5) Ur Specific [place] 1.022 (1.000-1.030) Urine Protein Trace H (Negative) Urine Glucose (UA) 2+ H (Negative) Diagnostic Findings Chest X-Ray 02/15/25 10:35 XR chest 1V portable CLINICAL HISTORY: weakness COMPARISON STUDY: 02/13/2025 FINDINGS: Stable CABG. There are mitral valvular calcifications. Heart size and pulmonary vasculature are normal. No consolidation or pleural effusion seen. No pneumothorax. IMPRESSION: No acute findings. ACT 112: Negative or not required by law. Electronically signed by: Ceasar Segovia M.D. 02/15/2025 11:[address] 02/15/25 10:35 CT head/brain wo con CLINICAL HISTORY: weakness. TECHNIQUE: Multiple axial CT images of the head were obtained without contrast. A dose lowering technique was utilized adhering to the principles of ALARA. COMPARISON: 05/12/2022 FINDINGS: No intracranial hemorrhage seen. No mass effect, midline shift, or hydrocephalus. No skull fracture seen. There is complete opacification of the maxillary sinuses, increased. There is opacification of a few ethmoid air cells, increased. IMPRESSION: 1. No acute intracranial findings. 2. Increased maxillary sinusitis. ACT 112: Negative or not required by law. The above report was generated using voice recognition software. It may contain grammatical, syntax or spelling errors. Electronically signed by: Ceasar Segovia M.D. 02/15/2025 11:29 AM Abdomen/Pelvis CT 02/15/25 10:40 CT SCAN OF THE ABDOMEN AND PELVIS WITHOUT IV CONTRAST CLINICAL HISTORY: Infection. COMPARISON STUDY: Abdominal CT dated 09/27/2024. TECHNIQUE: CT scan of the abdomen and pelvis is performed from the lung bases to the proximal femora. Images are reviewed in the axial, sagittal, and coronal planes. IV contrast was not administered for this examination. Note that examination is significantly suboptimal without oral and IV contrast. A dose lowering technique was utilized adhering to the principles of ALARA. There is streak artifact from the arms which could not be elevated above the abdomen. CT DOSE: 2064.21 mGy.cm FINDINGS: Lung bases: The patient is status post midline sternotomy. The heart is normal in size and without pericardial effusion. The coronary arteries and mitral annulus are densely calcified. The lung bases are clear. There is a tiny hiatal hernia. Liver: The unenhanced liver is normal in size, contour, and attenuation. There is no intrahepatic biliary ductal dilatation. Gallbladder: There are numerous calcified gallstones with no CT evidence of acute cholecystitis. Spleen: Normal in size and attenuation. Pancreas: The unenhanced pancreas is grossly unremarkable. Adrenal glands: Unremarkable. Kidneys: The unenhanced kidneys demonstrate cortical atrophy and are without hydronephrosis. No renal calculi are identified and there is no ureteral stone. A 1.9 cm left lower pole renal cyst is unchanged. Abdominal vasculature: The abdominal aorta is normal in course and caliber noting advanced atherosclerotic calcification. Bowel: There is no bowel obstruction. The appendix is not identified and reported surgically absent. Peritoneum: There is no intraperitoneal free air or abdominal ascites. There is a fat-containing umbilical hernia. Lymphadenopathy: None. Pelvic viscera: The bladder is decompressed and grossly unremarkable. The uterus is normal as visualized. Prominence of the right ovary is similar to previous. This measures up to 3.4 cm this is unchanged from prior studies. Skeletal structures: The skeletal structures are osteopenic. There is mild lumbosacral spondylosis. Degenerative sclerosis is seen in the sacroiliac joints. No lytic or blastic lesions are seen. Soft tissues with associated underaeration within the abdominal pannus are likely related to subcutaneous injections. IMPRESSION: 1. No acute infectious or inflammatory findings are identified in the abdomen or pelvis on this unenhanced examination. 2. Cholelithiasis. 3. Advanced coronary artery atherosclerosis. 4. Additional findings as above. ACT 112: Negative or not required by law. Electronically signed by: Bartolome Tellez M.D. 02/15/2025 11:23 AM Supervising Physician Co-Signing Physician Notes I have seen and discussed the case with the collaborating advanced practitioner. I agree with the above H&P. I have reviewed and confirmed the patients medical history, the findings on physical examination, and the patients diagnosis and treatment plan with Jayme WEINSTEIN and agree with the information documented. Ms Rausch is a 75 year old woman who presented to ED for near syncope and weakness. Patient was diagnosed with UTI on 02/13, received CTX, and was d/c from ED with a script for po meds. Patient did not sweet pickled fruit maker prescription. Patient reports taking her home meds this am. Denies any fevers, or chills. Reports completing a steroid pack on Tuesday for a drug eruption rash that occurred last month. Patient is also undergoing evaluation of breast infection/nipple discharge, which has resolved, but will be going for mammogram soon. Patient states she has just felt weak, and worsening lightheadedness since 02/13. She denies urine symptoms, bu reports nausea. Exam notable for anxious woman, frail elderly, however nontoxic. Noted erythema around neck, and shiny erythematous patches/wheals with confluence on BUE with peeling skin over top (confirmed with daughter, chronic, no new lesions noted..remarked as improving/stable), CTABL, RRR on exam, no edema of BLE. #Acute complicated cystitis,probable sepsis #lactic acidosis does not meet SIRS, WBC at 36.58 & lactate, no fever/no tachycardia (on coreg however), lactate downtrending with IVF from 3.3 to 2.6 COVID/flu negative blood cultures ordered continue cefepime UA from 02/13 with citrobacter/strep agalactiae trend lactate s/p 2L IVF, will continue to monitor resuscitation keeping in mind HFpEF #Hyperkalemia #JAYLEN on CKD hold lasix for now hold lisinopril #Relative hypotension #Lightheadedness #HFpEF #HTN Hold home amlodipine, imdur, and lisinopril resume as able #PAF continue coumadin continue sotalol, monitor lytes closely continue coreg with hold parameters I spent a total of 35 minutes coordinating, documenting, and providing care for this patient excluding time spent in the performance of separately billed servi alicia. All of the aforementioned completed outside of collaborating with the assigned advanced practitioner for a full treatment plan. I have reviewed the advanced practitioner's documentation, and I agree with, and take responsibility for the plan of care (2) CHF (congestive heart failure) Heart failure chronicity: acute on chronic Heart failure type: unspecified Qualified Code(s): I50.9 - Heart failure, unspecified (6) Type 2 diabetes mellitus, with long-term current use of insulin Diabetes mellitus complication detail: with diabetic retinopathy Diabetes mellitus complication status: with ophthalmic complications Diabetes mellitus macular edema: macular edema presence unspecified Diabetic retinopathy severity: with unspecified retinopathy severity Laterality: bilateral Qualified Code(s): E11.319 - Type 2 diabetes mellitus with unspecified diabetic retinopathy without macular edema; Z79.4 - [facility] (current) use of insulin (7) Hypertension Hypertension type: primary hypertension Qualified Code(s): I10 - Essential (primary) hypertension
[2025-02-15 12:00] LABS: Appearance Urine Cloudy (Clear); Bacteria Urine Automated None Seen (None Seen); Cast Urine Automated >20 /lpf (0-2); Epithelial Cell Urine Auto >20 /hpf (0-2); Glucose Urine UA 2+ (Negative)
[2025-02-15 12:16] LABS: INR 1.6 (0.9-1.1); Partial Thromboplastin Time 29 Seconds (21-31); Prothrombin Time 16.7 Seconds (9.0-12.0)
[2025-02-15] MEDS ORDERED: DEXTROSE 50% 50 ML SYRINGE IV PRN (13:36)
[2025-02-15] MEDS ORDERED: GLUCOSE 40% GEL 15 GM TUBE PO PRN (13:36)
[2025-02-15] MEDS ORDERED: GLUCOSE 10 TAB/TUBE PO PRN (13:36)
[2025-02-15] MEDS ORDERED: MAGNESIUM HYDROXIDE SUSP 30 ML UDC PO PRN (13:36)
[2025-02-15] MEDS ORDERED: CARBOHYDRATES FOR HYPOGLYCEMIA PO PRN (13:36)
[2025-02-15] MEDS ORDERED: POLYETHYLENE (MIRALAX) 17 GM PACK PO PRN (13:36)
[2025-02-15] MEDS ORDERED: ONDANSETRON INJ 2 MG/ML 2 ML VIAL IV PRN (13:36)
[2025-02-15] MEDS ORDERED: GLUCAGON FOR INJ 1 MG VIAL SQ PRN (13:36)
[2025-02-15] MEDS ORDERED: ALUMINUM/MAGNESIUM SUSP 30 ML UDC PO PRN (13:36)
--- NOTE | 2025-02-15 13:51 | Electrocardiogram Report ---
Test Reason : Blood Pressure : */* mmHG Vent. Rate : 63 BPM Atrial Rate : 63 BPM P-R Int : 134 ms QRS Dur : 114 ms QT Int : 462 ms P-R-T Axes : 78 -62 59 degrees QTcB Int : 472 ms Normal sinus rhythm Incomplete right bundle branch block Left anterior fascicular block Nonspecific ST abnormality Abnormal ECG When compared with ECG of 13-Feb-2025 11:03, No significant change was found Confirmed by Juan Ferraro ([id number]) on 02/15/2025 1:51:20 PM Referred By: REFERRED SELF Confirmed By: Juan Ferraro
--- NOTE | 2025-02-15 14:22 | XRay Report ---
XR chest 1V portable CLINICAL HISTORY: SOB COMPARISON STUDY: 02/15/2025 FINDINGS: Stable CABG. Heart size and pulmonary vasculature are normal. Stable mitral valvular calcif ications. No consolidation or pleural effusion seen. No pneumothorax. IMPRESSION: No acute findings. ACT 112: Negative or not required by law. Electronically signed by: Ceasar Segovia M.D. 02/15/2025 2:21 PM
[2025-02-15 15:04] LABS: Anion Gap 7.0 (3-11); Blood Urea Nitrogen 45.0 mg/dl (6-23); Calcium 7.4 mg/dl (8.6-10.3); Carbon Dioxide 25.0 mmol/L (21-32); Chloride 102.0 mmol/L (98-107); Creatinine Clr Calc Pharmacy 34.1 ml/min; Glucose 323.0 mg/dl (70-99(Fasting)); Potassium 5.4 mmol/L (3.5-5.1); Sodium 134.0 mmol/L (136-145)
[2025-02-15] MEDS: INSULIN ASPART PER UNIT CHARGE SC STA (15:13)
[2025-02-15] MEDS: SODIUM ZIRCONIUM CYCLOSILICATE 10 GM PACKET PO SCH (15:42)
[2025-02-15] MEDS: Continuous Glucose Monitor SCH (15:46)
[2025-02-15] MEDS ORDERED: WARFARIN SOD 2.5 MG TAB PO SCH (16:00)
[2025-02-15] MEDS: WARFARIN SOD 5 MG TAB PO ONE (16:16)
[2025-02-15] MEDS: CALCIUM GLUCONATE 1,000 MG/60 ML BAG IV SCH (16:17)
[2025-02-15] MEDS: SODIUM CHLORIDE 0.9% 500 ML IV SCH (17:11)
[2025-02-15] MEDS: INSULIN ASPART PER UNIT CHARGE SC SCH (18:15)
[2025-02-15] MEDS: CEFEPIME 2000MG 2,000 MG/20 ML SYR IV SCH (18:31)
[2025-02-15 20:27] LABS: Anion Gap 7.0 (3-11); Blood Urea Nitrogen 43.0 mg/dl (6-23); Calcium 8.0 mg/dl (8.6-10.3); Carbon Dioxide 26.0 mmol/L (21-32); Chloride 102.0 mmol/L (98-107); Creatinine Clr Calc Pharmacy 29.8 ml/min; Glucose 271.0 mg/dl (70-99(Fasting)); Potassium 4.4 mmol/L (3.5-5.1); Sodium 135.0 mmol/L (136-145)
[2025-02-15] MEDS: LANTUS PER UNIT CHARGE SQ SCH (21:13)
[2025-02-15] MEDS: MAGNESIUM OXIDE 400 MG TAB PO SCH (21:15)
[2025-02-15] MEDS: SOTALOL HCL 80 MG TAB PO SCH (21:15)
[2025-02-15] MEDS: ACETAMINOPHEN 325 MG TAB PO PRN (21:17)
[2025-02-15] MEDS: MELATONIN 3 MG TAB PO PRN (21:17)
[2025-02-16] MEDS: LEVOTHYROXINE SODIUM 125 MCG TABLET PO SCH (05:33)
[2025-02-16 06:31] LABS: Hematocrit (blood only) 34.0 % (37.0-47.0); Hemoglobin 11.4 g/dL (12.0-16.0); Mean Corpuscular Hemoglobin 31.4 pg (25.0-34.0); Mean Corpuscular Volume 93.7 fL (80.0-100.0); Platelet Count 149 K/uL (130-400); RDW Standard Deviation 44.6 fL (36.4-46.3); Red Blood Count 3.63 M/uL (4.20-5.40); White Blood Count 24.39 K/ul (4.8-10.8)
[2025-02-16 07:06] LABS: Anion Gap 7.0 (3-11); Blood Urea Nitrogen 53.0 mg/dl (6-23); Calcium 7.6 mg/dl (8.6-10.3); Carbon Dioxide 24.0 mmol/L (21-32); Chloride 103.0 mmol/L (98-107); Creatinine Clr Calc Pharmacy 28.5 ml/min; Glucose 130.0 mg/dl (70-99(Fasting)); Magnesium 1.9 mg/dl (1.7-2.4); Potassium 4.5 mmol/L (3.5-5.1); Sodium 134.0 mmol/L (136-145)
[2025-02-16] MEDS: ASPIRIN 81 MG ECTAB PO SCH (08:29)
[2025-02-16] MEDS: EZETIMIBE 10 MG TAB PO SCH (08:30)
[2025-02-16] MEDS: CLOPIDOGREL BISULFATE 75 MG TAB PO SCH (08:30)
[2025-02-16] MEDS: CYANOCOBALAMIN (B-12) 500 MCG TABLET PO SCH (08:30)
[2025-02-16] MEDS: FLUTICASONE/VILANTEROL 100/25MCG 14 PUFFS/INHALER INH SCH (08:31)
[2025-02-16] MEDS: ROSUVASTATIN CALCIUM 20 MG TAB PO SCH (08:31)
[2025-02-16 12:14] LABS: INR 2.5 (0.9-1.1); Prothrombin Time 25.1 Seconds (9.0-12.0)
[2025-02-16] MEDS: SODIUM CHLORIDE 0.9% 1,000 ML IV ONE (13:42)
--- NOTE | 2025-02-16 13:48 | Hospitalist Progress Note ---
Date of Service February 16, 2025 Assessment & Plan (1) Urinary tract infection: (2) CHF (congestive heart failure): (3) CKD (chronic kidney disease): (4) Arteriosclerotic cardiovascular disease (ASCVD): (5) Paroxysmal atrial fibrillation: (6) Type 2 diabetes mellitus, with long-term current use of insulin: (7) Hypertension: (8) Hypothyroidism: Plan Patient is a 75-year-old female with the PMHx of diabetes, CKD stage III, hypothyroidism, hyperlipidemia, nocturnal hypoxia, sleep apnea, CAD, paroxysmal atrial fibrillation, chronic diastolic HF, hypertension, mitral stenosis, nonrheumatic aortic valve stenosis, morbid obesity, hepatic steatosis, psoriasis, and osteoarthritis presenting with weakness and lightheadedness. [place] warm earlier today without no measurable temperature, but needed to turn on ac unit at home. Was in the ED 02/13 with feelings of lightheadedness, dehydration and near syncopal event that happened earlier in the day at the grocery store. Hemodynamically stable at that time and reporting some fatigue and weakness. Leukocytosis noted on lab workup with elevated wbc 18K with suspected UTI per urine analysis findings. She was given ceftriaxone in the emergency department and prescribed cefpodoxime for 5-day course at home; she was unable to get the prescription filled. Urine + Citrobacter and Group B strep from 02/13. Complicated urinary tract infection Possible sepsis Lactic acidosis --COVID, RSV, influenza negative --CT ABD:No acute infectious or inflammatory findings are identified in the abdomen or pelvis on this unenhanced examination. Cholelithiasis. Advanced coronary artery atherosclerosis. --Chest x-ray showed no acute process -- Blood cultures negative to date --Urine culture not contributory given use of oral antibiotics prior to admission Continue IV cefepime for now tolerating with no issues Lactic acid levels trended down Acute kidney injury on CKD stage III Hyperkalemia due to above Continue to hold Lasix, lisinopril Received [facility] Potassium levels improved Gentle IV fluids given valvular heart disease, diastolic heart failure Creatinine level 1.7 today Monitor renal function Avoid nephrotoxic agents as able Hypertension Presented with hypotension Continue to hold amlodipine, lisinopril, isosorbide Continue Coreg, sotalol with holding parameters Monitor blood pressure closely Congestive Heart Failure Valvular heart disease Last echo showed grade 2 diastolic dysfunction, moderate aortic stenosis, mild pulmonic valvular regurgitation, moderate mitral, tricuspid regurgitation, right ventricular systolic pressure elevated to be greater than 60 mmHg. No signs of volume overload currently Resume home medications as able Monitor volume status closely Recent drug reaction Completed prednisone tapering course Monitor ASCVD S/P CABG in 2004 S/P Ostial LAD with a single drug-eluting stent Continue aspirin, Plavix, statin, Zetia, fenofibrate, Coreg Paroxysmal A fib Subtherapeutic INR Continue sotalol, Coreg Continue Coumadin Monitor INR Type II DM Last HbA1c 7.4 Continue insulin per protocol Monitor blood glucose levels LILY Continue supplemental oxygen at bedtime Hypothyroidism continue home levothyroxine Morbid obesity BMI 42 DVT Px: warfarin; scds Code status: Full Code Admission and Anticipated Discharge Date Admission Date: February 15, 2025 Subjective Patient is seen and examined at bedside Dizziness resolved States having minimal normal expectorant cough Denies any dysuria, hematuria, chest pain, dyspnea, nausea, vomiting, abdominal pain No other complaints today Review of Systems Review of Systems: All systems reviewed & are unremarkable except as noted in Subjective Physical Exam Physical Exam: Physical Exam: Vitals signs as noted above General Appearance:Morbidly Obese, no apparent distress Head: normocephalic, Atraumatic Eyes: normal inspection, EOMI Neck: supple, Trachea midline Respiratory/Chest: Normal breath sounds, CTA, No accessory muscle use Cardiovascular: S1, S2, + murmur Abdomen/GI:Soft, Non tender, Bowel sounds present Extremities/Musculoskeletal:normal inspection, no pedal edema Neurologic/Psych:AAOX3, grossly no focal neurological deficits Skin: normal color, warm,+ Erythematous rash on chest, B/L UE R>L Results & Data Results & Data Vital Signs (Past 12 Hours) Vital Signs Temp Pulse Pulse Resp BP Pulse Ox O2 Del Method 02/16/25 11:16 36.2 C L 64 18 117/72 100 Room Air 02/16/25 08:03 36.6 C 89 20 104/62 94 Room Air 02/16/25 07:35 70 02/16/25 03:32 36.2 C L 67 18 98/46 L 99 Nasal Cannula O2 Flow Rate 02/16/25 11:16 02/16/25 08:03 02/16/25 07:35 02/16/25 03:32 2 Laboratory Results Short CBC 02/16/25 Range/Units 05:44 WBC 24.39 H (4.8-10.8) K/ul Hgb 11.4 L (12.0-16.0) g/dL Hct 34.0 L (37.0-47.0) % Plt Count 149 (130-400) K/uL BMP 02/15/25 02/15/25 02/16/25 14:28 19:54 05:44 Sodium 134 L 135 L 134 L Potassium 5.4 H 4.4 4.5 Chloride 102 102 103 Carbon Dioxide 25 24 BUN 45 H 43 H 53 H Creatinine 1.45 H 1.66 H 1.74 H Glucose 323 H* 271 H 130 H Calcium 7.4 L 8.0 L 7.6 L (2) CHF (congestive heart failure) Heart failure chronicity: acute on chronic Heart failure type: unspecified Qualified Code(s): I50.9 - Heart failure, unspecified (6) Type 2 diabetes mellitus, with long-term current use of insulin Diabetes mellitus complication status: with ophthalmic complications Diabetes mellitus complication detail: with diabetic retinopathy Diabetic retinopathy severity: with unspecified retinopathy severity Diabetes mellitus macular edema: macular edema presence unspecified Laterality: bilateral Qualified Code(s): E11.319 - Type 2 diabetes mellitus with unspecified diabetic retinopathy without macular edema; Z79.4 - technician terminal and repeater (current) use of insulin (7) Hypertension Hypertension type: primary hypertension Qualified Code(s): I10 - Essential (primary) hypertension
[2025-02-16] MEDS: CEFEPIME 1000MG 1,000 MG/10 ML SYR IV SCH (17:29)
[2025-02-16] MEDS: WARFARIN SOD 5 MG TAB PO SCH (17:30)
[2025-02-17 06:59] LABS: Hematocrit (blood only) 32.3 % (37.0-47.0); Hemoglobin 10.9 g/dL (12.0-16.0); Mean Corpuscular Hemoglobin 31.4 pg (25.0-34.0); Mean Corpuscular Volume 93.1 fL (80.0-100.0); Platelet Count 141 K/uL (130-400); RDW Standard Deviation 44.3 fL (36.4-46.3); Red Blood Count 3.47 M/uL (4.20-5.40); White Blood Count 12.51 K/ul (4.8-10.8)
[2025-02-17 07:33] LABS: Anion Gap 5.0 (3-11); Blood Urea Nitrogen 43.0 mg/dl (6-23); Calcium 7.7 mg/dl (8.6-10.3); Carbon Dioxide 27.0 mmol/L (21-32); Chloride 106.0 mmol/L (98-107); Creatinine Clr Calc Pharmacy 40.7 ml/min; Glucose 123.0 mg/dl (70-99(Fasting)); Potassium 4.2 mmol/L (3.5-5.1); Sodium 138.0 mmol/L (136-145)
[2025-02-17 07:37] LABS: INR 2.8 (0.9-1.1); Prothrombin Time 27.8 Seconds (9.0-12.0)
--- NOTE | 2025-02-17 08:33 | Hospitalist Progress Note ---
Date of Service February 17, 2025 Assessment & Plan (1) Urinary tract infection: (2) CHF (congestive heart failure): (3) CKD (chronic kidney disease): (4) Arteriosclerotic cardiovascular disease (ASCVD): (5) Paroxysmal atrial fibrillation: (6) Type 2 diabetes mellitus, with long-term current use of insulin: (7) Hypertension: (8) Hypothyroidism: Plan Patient is a 75-year-old female with the PMHx of diabetes, CKD stage III, hypothyroidism, hyperlipidemia, nocturnal hypoxia, sleep apnea, CAD, paroxysmal atrial fibrillation, chronic diastolic HF, hypertension, mitral stenosis, nonrheumatic aortic valve stenosis, morbid obesity, hepatic steatosis, psoriasis, and osteoarthritis presenting to the ED on 02/15 with weakness and lightheadedness. Urinary tract infection Possible sepsis --COVID, RSV, influenza negative --CT ABD:No acute infectious or inflammatory findings are identified in the abdomen or pelvis on this unenhanced examination. Cholelithiasis. Advanced coronary artery atherosclerosis. --Chest x-ray showed no acute process -- Blood cultures negative to date --Urine culture on 02/13 positive citrobacter freundii complex, pansensitive --Urine culture on 02/15 not contributory possibly due to x1 dose ceftriaxone in ED on 02/13 Initially on IV cefepime and switched to IV ertapenem due to persistent drug reactive rash Lactic acid levels trended down PT/OT recommending return home Recent drug reaction Prescribed keflex on 01/25 for left breast infection Prescribed prednisone taper on 02/04 for drug reaction rash Rash still present and itchy per patient Start medrol dose pack and claritin daily Switch antibiotics as above Acute kidney injury on CKD stage III-> resolved Baseline creat 1.2 per chart review Hyperkalemia resolved with Lokelma Continue to hold Lasix and lisinopril for now Monitor renal function Hypertension Presented with hypotension Continue to hold amlodipine and lisinopril Continue Coreg, sotalol with holding parameters Restart Imdur today Monitor blood pressure closely Chronic HFpEF Last echo showed grade 2 diastolic dysfunction, moderate aortic stenosis, mild pulmonic valvular regurgitation, moderate mitral, tricuspid regurgitation, right ventricular systolic pressure elevated to be greater than 60 mmHg. No signs of volume overload currently Resume home medications as able Monitor volume status closely ASCVD S/P CABG in 2004 S/P Ostial LAD with a single drug-eluting stent Continue aspirin, Plavix, statin, Zetia, fenofibrate, Coreg Paroxysmal A fib Continue sotalol, Coreg Continue Coumadin Monitor INR Type II DM Last HbA1c 7.4 Continue insulin per protocol Monitor blood glucose levels LILY Continue supplemental oxygen at bedtime Hypothyroidism continue home levothyroxine Morbid obesity BMI 42 DVT Prophylaxis: on warfarin Code Status: FULL CODE PCP: Jessica Pompa Disposition: return home when medically stable Patient seen in collaboration with Dr. Morales. Please see addendum. I spent a total of 60 minutes coordinating, documenting and providing care for this patient excluding time spent in the performance of separately billed services or time spent by another provider/QHP. Admission and Anticipated Discharge Date Admission Date: February 15, 2025 Supervising Physician Co-Signing Physician Notes Patient is seen and examined at bedside. Reports persistent erythematous itchy rash. Denies any chest pain, dyspnea. No recurrence of dizziness. On exam patient is obese, no apparent distress, normocephalic atraumatic, EOMI, normal breath sounds, clear to auscultation, S1-S2,+ murmur, abdomen soft, nontender, normal bowel sounds, alert, awake, oriented, grossly no focal deficits,+ erythematous generalized itchy rash. Right upper extremity rash better when compared to yesterday. Patient is currently being managed for complicated urinary tract infection, acute kidney injury, hyperkalemia, drug reaction to Keflex. Will change IV cefepime to ertapenem. Cultures negative. Renal function improved. Hyperkalemia resolved. Started on steroid tapering course to help with rash. Benadryl as needed. Leukocytosis improving. I personally interviewed and examined the patient at bedside. I have reviewed the advanced practitioner's documentation on the date of service referred in note and agree with plan. Patient's care is coordinated with Aliya WEINSTEIN. Please refer to the documentation above for details of patient's presentation and for discussion of other issues. I spent a total [id number] coordinating, documenting, and providing care for this patient excluding time spent in the performance of se parately billed services or time spent by another provider/QHP. Subjective Patient seen resting in bed Reports ongoing discomfort and itching with her rash Denies dizziness, chest pain, SOB, abdominal pain, N/V/D Review of Systems Review of Systems: All systems reviewed & are unremarkable except as noted in Subjective Physical Exam Physical Exam: General/Psych: obese, sitting up in bed, NAD, conversing easily Head: normocephalic, atraumatic Eyes: normal inspection, PERRL, conjunctivae pink Neck: normal visual inspection, trachea midline Respiratory: normal respiratory effort, lungs clear to auscultation, no wheeze/rales/rhonchi, no accessory muscle use Cardiovascular: regular rate and rhythm, +murmur Extremities: no cyanosis or clubbing, normal peripheral pulses, no BLE edema Abdomen/GI: normal bowel sounds, soft, nontender, no hepatosplenomegaly Neurologic/MSK: A+Ox3, CN's II-XI intact bilaterally, motor strength 5/5, moves all extremities Skin: normal color, warm and dry, erythematous rash to bilateral arms, torso, and back Results & Data Results & Data Vital Signs (Past 12 Hours) Vital Signs Temp Pulse Pulse Resp BP Pulse Ox O2 Del Method 02/17/25 08:15 36.4 C 76 18 125/73 100 Room Air 02/17/25 06:48 75 02/17/25 03:59 36.5 C 74 18 122/46 L 99 Room Air 02/17/25 03:00 63 02/17/25 00:44 36.7 C 76 20 134/65 100 Nasal Cannula O2 Flow Rate 02/17/25 08:15 02/17/25 06:48 02/17/25 03:59 02/17/25 03:00 02/17/25 00:44 2 Laboratory Results Short CBC 02/17/25 Range/Units 06:15 WBC 12.51 H (4.8-10.8) K/ul Hgb 10.9 L (12.0-16.0) g/dL Hct 32.3 L (37.0-47.0) % Plt Count 141 (130-400) K/uL BMP 02/17/25 06:15 Sodium 138 Potassium 4.2 Chloride 106 Carbon Dioxide 27 BUN 43 H Creatinine 1.22 H D Glucose 123 H Calcium 7.7 L Medications Administered Current Inpatient Medications Acetaminophen (Acetaminophen 325 Mg Tab) 650 mg PO Q4H PRN PRN Reason: Pain or Fever Stop: 03/17/25 13:35 Last Admin: 02/16/25 21:02 Dose: 650 mg Al Hydrox/Mg Hydrox/Simethicone (Aluminum/Magnesium Susp 30 Ml Udc) 15 ml PO Q4H PRN PRN Reason: Dyspepsia Stop: 03/17/25 13:35 Amlodipine Besylate (Amlodipine Besylate 5 Mg Tab) 2.5 mg PO HS [facility] Stop: 03/17/25 20:59 Aspirin (Aspirin 81 Mg Ectab) 81 mg PO DAILY [facility] Stop: 03/18/25 08:59 Last Admin: 02/17/25 10:18 Dose: 81 mg Carvedilol (Carvedilol 3.125 Mg Tab) 3.125 mg PO BIDM [facility] Stop: 03/17/25 16:59 Last Admin: 02/17/25 10:18 Dose: 3.125 mg Clopidogrel Bisulfate (Clopidogrel Bisulfate 75 Mg Tab) 75 mg PO QAM [facility] Stop: 03/18/25 08:59 Last Admin: 02/17/25 10:18 Dose: 75 mg Cyanocobalamin (Cyanocobalamin (B-12) 500 Mcg Tablet) [facility],000 [facility] [place] Stop: 03/18/25 08:59 Last Admin: 02/17/25 10:19 Dose: 1,000 mcg Dextrose (Dextrose 50% 50 Ml Syringe) 25 - 50 ml IV UD PRN; Protocol PRN Reason: Hypoglycemia Protocol Stop: 03/17/25 13:35 Ezetimibe (Ezetimibe 10 Mg Tab) 10 [facility] [place] Stop: 03/18/25 08:59 Last Admin: 02/17/25 10:20 Dose: 10 mg Fluticasone/Vilanterol (Fluticasone/Vilanterol 100/25mcg 14 Puffs/Inhaler) 1 puffs INH DAILY [facility] Stop: 03/18/25 08:59 Last Admin: 02/17/25 10:20 Dose: 1 puffs Glucagon (Glucagon For Inj 1 Mg Vial) 1 mg SQ UD PRN; Protocol PRN Reason: Hypoglycemia Protocol Stop: 03/17/25 13:35 Glucose (Glucose 40% Gel 15 Gm Tube) 15 - 30 gm PO UD PRN; Protocol PRN Reason: Hypoglycemia Protocol Stop: 03/17/25 13:35 Glucose (Glucose 10 Tab/Tube) 4 - 8 tab PO UD PRN; Protocol PRN Reason: Hypoglycemia Protocol Stop: 03/17/25 13:35 Ertapenem (Invanz 1000mg) 1,000 mg in 10 mls @ 2 mls/min IV Q24H [facility] Stop: 02/22/25 12:29 Last Admin: 02/17/25 13:24 Dose: 2 mls/min Insulin Aspart (Insulin Aspart Per Unit Charge) 0 units SC ACHS [facility] Stop: 03/17/25 16:29 Last Admin: 02/17/25 13:16 Dose: 9 units Insulin Glargine (Lantus Per Unit Charge) 10 units SQ HS [facility] Stop: 03/17/25 20:59 Last Admin: 02/16/25 21:00 Dose: 10 units Isosorbide Mononitrate (Isosorbide [place] Extended Rel 60 Mg Tabcr) 60 mg PO QAM [facility] Stop: 03/18/25 08:59 Levothyroxine Sodium (Levothyroxine Sodium 125 Mcg Tablet) 125 mcg PO DAILYBB [facility] Stop: 03/18/25 06:29 Last Admin: 02/17/25 05:35 Dose: 125 mcg Lisinopril (Lisinopril 20 Mg Tab) 20 mg PO HS [facility] Stop: 03/17/25 20:59 Loratadine (Loratadine 10 Mg Tab) 10 mg PO QAM [facility] Stop: 03/20/25 08:59 Magnesium Hydroxide (Magnesium Hydroxide Susp 30 Ml Udc) 30 ml PO Q12H PRN PRN Reason: Constipation Stop: 03/17/25 13:35 Magnesium Oxide (Magnesium Oxide 400 Mg Tab) 400 mg PO BID [facility] Stop: 03/17/25 20:59 Last Admin: 02/17/25 10:20 Dose: 400 mg Melatonin (Melatonin 3 Mg Tab) 3 mg PO HS PRN PRN Reason: Sleep Stop: 03/17/25 13:35 Last Admin: 02/16/25 21:02 Dose: 3 mg Methylprednisolone (Methylprednisolone 4 Mg Tab) 8 mg PO 2100 [facility] Stop: 02/17/25 21:01 Methylprednisolone (Methylprednisolone 4 Mg Tab) 4 mg PO 1800 [facility] Stop: 02/17/25 18:01 Methylprednisolone (Methylprednisolone 4 Mg Tab) 4 mg PO 0700,1300,1800 [facility] Stop: 02/18/25 18:01 Methylprednisolone (Methylprednisolone 4 Mg Tab) 8 mg PO HS [facility] Stop: 02/18/25 21:01 Methylprednisolone (Methylprednisolone 4 Mg Tab) 4 mg PO 0700,1300,1800,2100 [facility] Stop: 02/19/25 21:01 Methylprednisolone (Methylprednisolone 4 Mg Tab) 4 mg PO 0700,1300,2100 [facility] Stop: 02/20/25 21:01 Methylprednisolone (Methylprednisolone 4 Mg Tab) 4 mg PO 0700,2100 [facility] Stop: 02/21/25 21:01 Methylprednisolone (Methylprednisolone 4 Mg Tab) 4 mg PO 0700 [facility] Stop: 02/22/25 07:01 Miscellaneous (Order Awaiting Action) 1 each N/A QS [facility] Stop: 03/17/25 15:59 Last Admin: 02/17/25 10:16 Dose: Not Given Miscellaneous (Carbohydrates For Hypoglycemia ) 15 - 30 gm PO UD PRN PRN Reason: Hypoglycemia Protocol Stop: 03/17/25 13:35 Miscellaneous (Continuous Glucose Monitor) 0 each N/A ACHS [facility] Stop: 03/17/25 16:29 Last Admin: 02/17/25 13:25 Dose: 1 each Ondansetron HCl (Ondansetron Inj 2 Mg/Ml 2 Ml Vial) 4 mg IV Q6H PRN PRN Reason: Nausea Stop: 03/17/25 13:35 Polyethylene Glycol (Polyethylene (Miralax) 17 Gm Pack) 17 gm PO DAILY PRN PRN Reason: Constipation Stop: 03/17/25 13:35 Rosuvastatin Calcium (Rosuvastatin Calcium 20 Mg Tab) 40 mg PO QAM [facility] Stop: 03/18/25 08:59 Last Admin: 02/17/25 10:21 Dose: 40 mg Sotalol HCl (Sotalol Hcl 80 Mg Tab) 40 mg PO BID [facility] Stop: 03/17/25 20:59 Last Admin: 02/17/25 10:21 Dose: 40 mg Warfarin Sodium (Warfarin Sod 5 Mg Tab) 5 mg PO [email or web address] [facility] Stop: 03/18/25 15:59 Last Admin: 02/16/25 17:30 Dose: 5 mg Warfarin Sodium (Warfarin Sod 2.5 Mg Tab) 2.5 mg PO [email or web address] [facility] Stop: 03/20/25 15:59 (2) CHF (congestive heart failure) Heart failure chronicity: acute on chronic Heart failure type: unspecified Qualified Code(s): I50.9 - Heart failure, unspecified (6) Type 2 diabetes mellitus, with long-term current use of insulin Diabetes mellitus complication detail: with diabetic retinopathy Diabetes mellitus complication status: with ophthalmic complications Diabetes mellitus macular edema: macular edema presence unspecified Diabetic retinopathy severity: with unspecified retinopathy severity Laterality: bilateral Qualifie d Code(s): E11.319 - Type 2 diabetes mellitus with unspecified diabetic retinopathy without macular edema; Z79.4 - [facility] (current) use of insulin (7) Hypertension Hypertension type: primary hypertension Qualified Code(s): I10 - Essential (primary) hypertension
[2025-02-17] MEDS: ISOSORBIDE MONO EXTENDED REL 60 MG TABCR PO ONE (10:21)
[2025-02-17] MEDS ORDERED: methylPREDNISolone 4 MG TAB, 6 DAY TAPER PO SCH (12:00)
[2025-02-17] MEDS: LORATADINE 10 MG TAB PO ONE (12:32)
[2025-02-17] MEDS: methylPREDNISolone 4 MG TAB PO SCH ×3 (13:23→19:39)
[2025-02-17] MEDS: ERTAPENEM 1000MG 1,000 MG/10 ML SYR IV SCH (13:24)
[2025-02-17] MEDS: WARFARIN SOD 2.5 MG TAB PO SCH (16:46)
[2025-02-18] MEDS: methylPREDNISolone 4 MG TAB PO SCH (05:57)
[2025-02-18 06:43] LABS: Hematocrit (blood only) 33.8 % (37.0-47.0); Hemoglobin 11.2 g/dL (12.0-16.0); Mean Corpuscular Hemoglobin 30.7 pg (25.0-34.0); Mean Corpuscular Volume 92.6 fL (80.0-100.0); Platelet Count 167 K/uL (130-400); RDW Standard Deviation 43.8 fL (36.4-46.3); Red Blood Count 3.65 M/uL (4.20-5.40); White Blood Count 9.39 K/ul (4.8-10.8)
[2025-02-18 07:10] LABS: Anion Gap 5.0 (3-11); Blood Urea Nitrogen 35.0 mg/dl (6-23); Calcium 8.0 mg/dl (8.6-10.3); Carbon Dioxide 28.0 mmol/L (21-32); Chloride 103.0 mmol/L (98-107); Creatinine Clr Calc Pharmacy 39.7 ml/min; Glucose 216.0 mg/dl (70-99(Fasting)); Potassium 5.2 mmol/L (3.5-5.1); Sodium 136.0 mmol/L (136-145)
[2025-02-18 07:13] LABS: INR 2.4 (0.9-1.1); Prothrombin Time 24.1 Seconds (9.0-12.0)
[2025-02-18] MEDS: ISOSORBIDE MONO EXTENDED REL 60 MG TABCR PO SCH (08:17)
[2025-02-18] MEDS: LORATADINE 10 MG TAB PO SCH (08:17)
[2025-02-18 08:34] VITALS: TEMP 98.4
[2025-02-18] MEDS: FUROSEMIDE 20 MG TAB PO SCH (08:35)
--- NOTE | 2025-02-18 10:14 | Discharge Summary ---
Discharge Summary Date of Service February 18, 2025 Principal Dx & Hospital Course #1 = Principal Diagnosis (1) Urinary tract infection: (2) CHF (congestive heart failure): (3) CKD (chronic kidney disease): (4) Arteriosclerotic cardiovascular disease (ASCVD): (5) Paroxysmal atrial fibrillation: (6) Type 2 diabetes mellitus, with long-term current use of insulin: (7) Hypertension: (8) Hypothyroidism: Plan Patient is a 75-year-old female with the PMHx of diabetes, CKD stage III, hypothyroidism, hyperlipidemia, nocturnal hypoxia, sleep apnea, CAD, paroxysmal atrial fibrillation, chronic diastolic HF, hypertension, mitral stenosis, nonrheumatic aortic valve stenosis, morbid obesity, hepatic steatosis, psoriasis, and osteoarthritis presenting to the ED on 02/15 with weakness and lightheadedness. Urinary tract infection Possible sepsis Recent ER visit on 02/13 for similar symptoms and found to have UTI, given ceftriaxone x1 and prescribed oral cefpodoxime, never filled script due to holiday Admitting labs revealed leukocytosis and lactic acidosis concerning for possible sepsis-> both downtrended CXR and CTAP negative for acute processes COVID, RSV, influenza negative Blood cultures negative to date Urine culture on 02/13 positive citrobacter freundii complex, pansensitive --Urine culture on 02/15 negative Received 4 days of IV antibiotics, sent with one day of ciprofloxacin to complete 5 days of antibiotics DC to home on 02/18 Recent drug reaction Prescribed keflex on 01/25 for left breast infection Prescribed prednisone taper on 02/04 for drug reaction rash Rash worsened after completion of prednisone Sent with remainder of Medrol dose pack until 02/21 Encouraged OTC ointment/cream and daily allergy medication for itching relief Hyperkalemia K 5.3 on admission Received Lokelma K 5.2 today-> 5.0 after home lasix Advised low K diet Recommend monitoring of K level at PCP appointment Acute kidney injury on CKD stage III-> resolved Baseline creat 1.2 per chart review Creat 1.25 on day of discharge Hypertension Presented with hypotension Continue carvedilol, sotalol, Imdur, Lasix Advised to continue to hold amlodipine and lisinopril until PCP appointment Chronic HFpEF No signs of exacerbation Continue lasix ASCVD S/P CABG in 2004 S/P Ostial LAD with a single drug-eluting stent Continue aspirin, Plavix, statin, Zetia, fenofibrate, Coreg Follow up with Cardiology Paroxysmal A fib Continue sotalol, Coreg, Coumadin Follow up with anticoagulation clinic Type II DM Continue insulin Advised patient that insulin needs may be higher while on steroids LILY Continue supplemental oxygen at bedtime Hypothyroidism Continue home levothyroxine Morbid obesity BMI 42 Patient seen in collaboration with Dr. Morales. Please see addendum. Notes For Next Care Provider 75 year old female with significant PMH who was admitted at [facility] from 02/15- 02/18/2025 with a UTI. Treated with 4 days of IV antibiotics and sent with one day of oral antibiotics. Ongoing drug related rash treated with another round of steroids - sent with remainder of medrol dose pack. Recommend re-eval rash, monitoring of blood pressure (resume meds as able), and checking potassium level at PCP follow up. Medication Changes From Visit Ciprofloxacin 500mg by mouth once Methylprednisolone taper --02/18 take one tablet at 6pm and two tablets at 9pm --02/19 take one tablet at 7am, 1pm, 6pm, and 9pm --02/20 take one tablet at 7am, 1pm, and 9pm --02/21 take one tablet at 7am and 9pm --02/22 take one tablet at 7am Hold amlodipine and lisinopril Admission HPI Per Admitting Provider Patient is a 75-year-old female with the PMHx of diabetes, CKD stage III, hypothyroidism, hyperlipidemia, nocturnal hypoxia, sleep apnea, CAD, paroxysmal atrial fibrillation, chronic diastolic HF, hypertension, mitral stenosis, nonrheumatic aortic valve stenosis, morbid obesity, hepatic steatosis, psoriasis, and osteoarthritis presenting with weakness and lightheadedness. Minerva warm earlier today without no measurable temperature, but needed to turn on ac unit at home. Was in the ED 02/13 with feelings of lightheadedness, dehydration and near syncopal event that happened earlier in the day at the grocery store. Hemodynamically stable at that time and reporting some fatigue and weakness. Leukocytosis noted on lab workup with elevated wbc 18K with suspected UTI per urine analysis findings. She was given ceftriaxone in the emergency department and prescribed cefpodoxime for 5-day course at home; she was unable to get the prescription filled. Urine + Citrobacter and Group B strep from 02/13. Denies fever, chills, weight loss, headache, cognitive changes, vision/hearing changes, chest pain, SOB, swelling, difficulty breathing, urinary concerns, N/V/D, joint swelling/pain, ambulation difficulty, skin rashes, lesions, bleeding, bruising. Discussed with ED provider labs, specifically leukocytosis, management in the ED, and reason for admission for antibiotic management for suspected UTI. In the emergency department, patient had normal vital signs, hemodynamically stable. Leukocytosis noted on lab workup with WBC 36K, although not fully meeting sirs criteria with low temp, lactate 3.3. Normal procal. UA positive leukocyte esterase, blood, ketones, casts. NSS 2L given in the ED. Chest Xray without evidence of active disease. Has a significant cardiac history. Euvolemic with no cough today. Head CT without acute findings and showing increased maxillary sinusitis. CT abdomen/pelvis showed No acute infectious or inflammatory findings; Cholelithiasis. No abdominal pain on my exam. Also with advanced coronary artery atherosclerosis. As per external record, patient was seen by PCP on 01/25/25 for complaint of abnormal growth to her left nipple and prescribed keflex. She developed a widespread rash throughout her body while on keflex; treatment discontinued and she was then on steroids for Cephalosporin-induced generalized drug eruption. The rash is still present but improved per patient and daughter report. Was given Cefepime in the ED without no signs of allergic reaction. History obtained primarily from the patient and via hospitalization record. The patient's family was at the bedside and assisted with history of present illness, medications and events leading to today's hospitalization. External chart review obtained from [facility]. Discharge Exam General/Psych: obese, sitting up in bed, NAD, conversing easily Head: normocephalic, atraumatic Eyes: normal inspection, PERRL, conjunctivae pink Neck: normal visual inspection, trachea midline Respiratory: normal respiratory effort, lungs clear to auscultation, no wheeze/rales/rhonchi, no accessory muscle use Cardiovascular: regular rate and rhythm, +murmur Extremities: no cyanosis or clubbing, normal peripheral pulses, no BLE edema Abdomen/GI: normal bowel sounds, soft, nontender, no hepatosplenomegaly Neurologic/MSK: A+Ox3, CN's II-XI intact bilaterally, motor strength 5/5, moves all extremities Skin: normal color, warm and dry, erythematous rash to bilateral arms, torso, and back Updated Medication List Medication Instructions Recorded Confirmed Type rosuvastatin 40 mg tablet 40 mg PO QAM 08/09/18 02/15/25 History ezetimibe 10 mg tablet 10 mg PO QAM 04/05/19 02/15/25 History fenofibrate 54 mg tablet 54 mg PO QAM 04/24/20 02/15/25 History clopidogrel 75 mg tablet 75 mg PO QAM #30 tabs 11/13/20 02/15/25 Rx isosorbide mononitrate 60 mg 60 mg PO QAM 30 days #30 tabs 01/05/21 02/15/25 Rx tablet,extended release 24 hr magnesium oxide 400 mg PO BID 07/23/21 02/15/25 History ipratropium 0.5 mg-albuterol 3 mg 3 ml inhalation Q8H PRN wheezing 09/06/21 02/15/25 Rx (2.5 mg base)/3 mL nebulization #90 mL soln nitroglycerin 0.4 mg sublingual 0.4 mg sublingual DIRECTED PRN 05/17/22 02/15/25 History tablet Chest Pain blood-glucose sensor (Dexcom G6 11/17/22 01/28/25 History Sensor device) carvedilol 3.125 mg tablet 3.125 mg PO BIDM 04/28/23 02/15/25 History cyanocobalamin (vitamin B-12) 1,000 mcg PO QAM 04/28/23 02/15/25 History 1,000 mcg tablet (Vitamin B-12) lisinopril 20 mg tablet 20 mg PO HS 04/28/23 02/15/25 History montelukast 10 mg tablet 10 mg PO QAM 04/28/23 02/15/25 History sotalol 80 mg tablet 40 mg PO BID 04/28/23 02/15/25 History warfarin 5 mg tablet 2.5 mg PO 3XWK 04/28/23 02/15/25 History betamethasone dipropionate 0.05 % 1 applic topical BID 05/27/23 02/15/25 History topical ointment furosemide 20 mg tablet 20 mg PO QAM 05/27/23 02/15/25 History pen needle, diabetic 31 gauge x #400 ea 11/26/24 01/28/25 Rx 3/16" acetaminophen 500 mg tablet 500 - 1,000 mg PO BID PRN Pain 11/28/24 02/15/25 History (Tylenol Extra Strength) amlodipine 2.5 mg tablet 2.5 mg PO HS 11/28/24 02/15/25 History aspirin 81 mg chewable tablet 81 mg PO DAILY 11/28/24 02/15/25 History guaifenesin 600 mg tablet, 600 mg PO Q12H PRN Congestion 11/28/24 02/15/25 History extended release 12 hr (Mucinex) insulin lispro 100 unit/mL 30 unit subcut AC 11/28/24 02/15/25 History subcutaneous pen (Humalog KwikPen (U-100) Insulin) levothyroxine 125 mcg tablet 125 mcg PO DAILYBB 11/28/24 02/15/25 History mometasone-formoterol HFA 100 2 puff inhalation BID 11/28/24 02/15/25 History mcg-5 mcg/actuation aerosol inhaler (Dulera) sodium chloride 0.65 % nasal spray 1 spray intranasal .Q1H PRN 11/28/24 02/15/25 History aerosol (Saline Nasal) BLOODY/DRY NOSE sodium chloride 3 % for 4 ml inhalation BID 11/28/24 02/15/25 History nebulization warfarin 5 mg tablet 5 mg PO 4XWK 11/28/24 02/15/25 History insulin glargine 100 unit/mL (3 10 - 30 unit subcut PM 11/29/24 02/15/25 History mL) subcutaneous pen (Lantus Solostar U-100 Insulin) ciprofloxacin HCl 500 mg tablet 500 mg PO ONCE #1 tab 02/18/25 Rx methylprednisolone 4 mg tablet 4 mg PO DAILY #13 tabs 02/18/25 Rx Hospital Stay Data Consultations 02/15/25 11:47 ED Decision to Admit Stat Diagnostic Imagining Performed Chest X-Ray 02/15/25 10:35 XR chest 1V portable CLINICAL HISTORY: weakness COMPARISON STUDY: 02/13/2025 FINDINGS: Stable CABG. There are mitral valvular calcifications. Heart size and pulmonary vasculature are normal. No consolidation or pleural effusion seen. No pneumothorax. IMPRESSION: No acute findings. ACT 112: Negative or not required by law. Electronically signed by: Ceasar Segovia M.D. 02/15/2025 11:[address] 02/15/25 10:35 CT head/brain wo con CLINICAL HISTORY: weakness. TECHNIQUE: Multiple axial CT images of the head were obtained without contrast. A dose lowering technique was utilized adhering to the principles of ALARA. COMPARISON: 05/12/2022 FINDINGS: No intracranial hemorrhage seen. No mass effect, midline shift, or hydrocephalus. No skull fracture seen. There is complete opacification of the maxillary sinuses, increased. There is opacification of a few ethmoid air cells, increased. IMPRESSION: 1. No acute intracranial findings. 2. Increased maxillary sinusitis. ACT 112: Negative or not required by law. The above report was generated using voice recognition software. It may contain grammatical, syntax or spelling errors. Electronically signed by: Ceasar Segovia M.D. 02/15/2025 11:29 AM Abdomen/Pelvis CT 02/15/25 10:40 CT SCAN OF THE ABDOMEN AND PELVIS WITHOUT IV CONTRAST CLINICAL HISTORY: Infection. COMPARISON STUDY: Abdominal CT dated 09/27/2024. TECHNIQUE: CT scan of the abdomen and pelvis is performed from the lung bases to the proximal femora. Images are reviewed in the axial, sagittal, and coronal planes. IV contrast was not administered for this examination. Note that examination is significantly suboptimal without oral and IV contrast. A dose lowering technique was utilized adhering to the principles of ALARA. There is streak artifact from the arms which could not be elevated above the abdomen. CT DOSE: 2064.21 mGy.cm FINDINGS: Lung bases: The patient is status post midline sternotomy. The heart is normal in size and without pericardial effusion. The coronary arteries and mitral annulus are densely calcified. The lung bases are clear. There is a tiny hiatal hernia. Liver: The unenhanced liver is normal in size, contour, and attenuation. There is no intrahepatic biliary ductal dilatation. Gallbladder: There are numerous calcified gallstones with no CT evidence of acute cholecystitis. Spleen: Normal in size and attenuation. Pancreas: The unenhanced pancreas is grossly unremarkable. Adrenal glands: Unremarkable. Kidneys: The unenhanced kidneys demonstrate cortical atrophy and are without hydronephrosis. No renal calculi are identified and there is no ureteral stone. A 1.9 cm left lower pole renal cyst is unchanged. Abdominal vasculature: The abdominal aorta is normal in course and caliber noting advanced atherosclerotic calcification. Bowel: There is no bowel obstruction. The appendix is not identified and reported surgically absent. Peritoneum: There is no intraperitoneal free air or abdominal ascites. There is a fat-containing umbilical hernia. Lymphadenopathy: None. Pelvic viscera: The bladder is decompressed and grossly unremarkable. The uterus is normal as visualized. Prominence of the right ovary is similar to previous. This measures up to 3.4 cm this is unchanged from prior studies. Skeletal structures: The skeletal structures are osteopenic. There is mild lumbosacral spondylosis. Degenerative sclerosis is seen in the sacroiliac joints. No lytic or blastic lesions are seen. Soft tissues with associated underaeration within the abdominal pannus are likely related to subcutaneous injections. IMPRESSION: 1. No acute infectious or inflammatory findings are identified in the abdomen or pelvis on this unenhanced examination. 2. Cholelithiasis. 3. Advanced coronary artery atherosclerosis. 4. Additional findings as above. ACT 112: Negative or not required by law. Electronically signed by: Bartolome Tellez M.D. 02/15/2025 11:23 AM Chest X-Ray 02/15/25 13:58 XR chest 1V portable CLINICAL HISTORY: SOB COMPARISON STUDY: 02/15/2025 FINDINGS: Stable CABG. Heart size and pulmonary vasculature are normal. Stable mitral valvular calcifications. No consolidation or pleural effusion seen. No pneumothorax. IMPRESSION: No acute findings. ACT 112: Negative or not required by law. Electronically signed by: Ceasar Segovia M.D. 02/15/2025 2:21 PM Discharge Instructions Given to Patient (Per Discharging Provider) You presented to the hospital with weakness and lightheadedness and were admitted for possible sepsis. Your blood and urine cultures have been negative. Your imaging studies showed no infection in the lungs or abdomen. It is likely that your symptoms were caused by your UTI from [place] since you were not able to complete your course of antibiotics. We treated you with four days of IV antibiotics and you will need to complete one more day of oral antibiotics. You will also need to complete another course of steroids for your rash. You may need to administer more insulin than usual while on steroids as they can increase your blood sugar levels. Your potassium levels were high in the hospital. We recommend a low potassium diet - see the handout provided. We also recommend your PCP monitor your potassium level outpatient. MEDICATION CHANGES: Ciprofloxacin 500mg by mouth once tomorrow 02/19 Methylprednisolone taper --02/18 take one tablet at 6pm and two tablets at 9pm --02/19 take one tablet at 7am, 1pm, 6pm, and 9pm --02/20 take one tablet at 7am, 1pm, and 9pm --02/21 take one tablet at 7am and 9pm --02/22 take one tablet at 7am You can continue to use benadryl cream and daily allergy medication for itching as needed Hold your amlodipine and lisinopril until you see your PCP SUMMARY OF TEST RESULTS: Head CT negative Chest x-ray negative CT abdomen shows coronary artery disease PENDING TEST RESULTS: Blood cultures final result - preliminary negative so far RECOMMENDATIONS FOR FOLLOW-UP: Please follow up with your PCP as scheduled on 02/27/2024 at 2pm OTHER INSTRUCTIONS: Seek medical attention if you have: * temperature above 101 * chest pain or trouble breathing * abdominal pain, nausea, vomiting * diarrhea, dark stools or bloody stools * any unanswered questions or concerns Call 911 if symptoms are severe. It has been a pleasure taking care of you. Please take care of yourself. If you have any questions regarding your recent hospitalization please contact [facility] and request [facility] @ [phone]. Total Time Total Time Spent Total Time Spent (In Minutes): I spent a total of 35 minutes coordinating, documenting and providing care for this patient excluding time spent in the performance of separately billed services or time spent by another provider/QHP. Supervising Physician Co-Signing Physician Notes Patient is seen and examined at bedside on day of discharge. Rash clinically improving. Patient offers no complaints today. Prefers to be discharged home today. On exam patient is obese, no apparent distress, normocephalic atraumatic, EOMI, normal breath sounds, clear to auscultation, S1-S2,+ murmur, abdomen soft, nontender, normal bowel sounds, alert, awake, oriented, grossly no focal deficits,+ erythematous generalized itchy rash. Right upper extremity rash better when compared to yesterday. Patient is currently being managed for complicated urinary tract infection, acute kidney injury, hyperkalemia, drug reaction to Keflex. IV antibiotics will be transition to 1 more day of ciprofloxacin to complete the course. Renal function improved. Advised a low potassium diet for now. Advised to continue to hold amlodipine, lisinopril for now until follow-up with primary care physician. Also advised to follow-up with dermatology as outpatient. Leukocytosis resolved. I personally interviewed and examined the patient at bedside. I have reviewed the advanced practitioner's documentation on the date of service referred in note and agree with plan. Patient's care is coordinated with Aliya WEINSTEIN. Please refer to the documentation above for details of patient's presentation and for discussion of other issues. I spent a total [id number] coordinating, documenting, and providing care for this patient excluding time spent in the performance of separately billed services or time spent by another provider/QHP.
[2025-02-18 12:32] VITALS: RESP 18; O2SAT 97
[2025-02-18] MEDS: diphenhydrAMINE 2%/ZINC 0.1% CREAM 28.4GM TUBE EXT PRN (13:12)
[2025-02-18 13:57] VITALS: BP 134/67
[2025-02-18 15:02] VITALS: PULSE 79
[2025-02-18] MEDS ORDERED: methylPREDNISolone 4 MG TAB PO SCH (21:00)
[2025-02-19] MEDS ORDERED: methylPREDNISolone 4 MG TAB PO SCH (07:00)
[2025-02-20] MEDS ORDERED: methylPREDNISolone 4 MG TAB PO SCH (07:00)
[2025-02-21] MEDS ORDERED: methylPREDNISolone 4 MG TAB PO SCH (07:00)
[2025-02-22] MEDS ORDERED: methylPREDNISolone 4 MG TAB PO SCH (07:00)
== END 2025-02-18 15:30 | disposition home or self-care (01) | DRG 872 ==
LOC: ED 10:24 → SUATTDRO 12:27 → EDINP 12:27 → 2N 13:37